=== PATIENT | female | born 1935 | race Caucasian/White ===

== ENCOUNTER → 2017-10-09 | Day surgery (SDC) | payer MEDICARE, BC ==
[~2017-10-09] MED LIST: Dextrose 5%-Lactated Ringers 1,000 ML IV SCH; Glycopyrrolate 0.2 MG/ML 2 ML SDV IVPUSH ONE; Propofol 200 MG/20 ML SDV ONE; fentaNYL 100 MCG/2 ML SDV ONE
--- NOTE | 2017-10-17 12:55 | OR ---
DATE OF PROCEDURE: 10/09/2017 PREOPERATIVE DIAGNOSES: 1. History of Mcbride esophagus. 2. Laryngopharyngeal dysphagia. POSTOPERATIVE DIAGNOSES: 1. Laryngopharyngeal dysphagia with no anatomic abnormalities in the larynx, hypopharynx, or upper esophageal sphincter. 2. 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 3. Mild antral gastritis. OPERATIVE PROCEDURES: Esophagogastroduodenoscopy with; 1. Biopsies of esophagogastric junction for histologic evaluation. 2. Biopsies of antrum for CLOtest. ANESTHESIA: IV sedation. INDICATION FOR PROCEDURE: The patient presents for followup of her Mcbride esophagus. She has had some laryngopharyngeal dysphagia and some breakthrough reflux symptoms. She is status post previous Joana fundoplication. She presently has been on omeprazole 20 mg b.i.d. The plan is to proceed with an upper GI endoscopy with biopsies of the distal esophagus for followup of Mcbride esophagus and other biopsies or dilation as indicated. Potential risks including bleeding and perforation were discussed, and the patient wishes to proceed. DETAILS OF PROCEDURE: The patient was taken to the operating room and placed in a left lateral decubitus position. IV sedation was administered, after which the upper GI endoscope was passed orally through the length of the esophagus and into the stomach with retroflexion view of the fundus, thereafter through the pyloric channel, and then into the proximal duodenum. Findings included normal hypopharynx, larynx, and upper esophageal sphincter. There was no obvious inflammation in these areas and no anatomic abnormalities. The esophageal body was unremarkable. The patient did have an intact Joana effect at the distal esophagus. There was some upward extension of the gastroesophageal junction and mucosal line above the upper gastric folds consistent with history of Mcbride esophagus. There was no packing or signs of neoplastic change and no stricturing identified. Within the stomach, the patient had some mild antral gastritis without erosions or ulcers. The pyloric channel and duodenum, junction of the third and fourth portions, were unremarkable. At this point, biopsies were obtained from the antrum and sent for CLOtest for H. pylori. Multiple biopsies were then obtained from the esophagogastric junction and sent for histologic evaluation. Minimal bleeding from the biopsy site was seen, and the procedure then concluded. With the patient having some breakthrough reflux symptoms, we will try switching to Protonix 40 mg daily and have her stop the omeprazole. If the laryngopharyngeal dysphagia becomes worse, then x-ray swallow study and speech pathology evaluation might be warranted, unless assuming there is no trend toward dysphagia on today's esophageal biopsies, the next endoscopy should be around 2 years. Robert Pate MD /[id number]
== END ==
LOC: JP.SDS 05:39
PROVIDERS: ATTEND Surgery
DX: K29.50 Unspecified chronic gastritis without bleeding (principal); K22.70 Barrett's esophagus without dysplasia; N18.9 Chronic kidney disease, unspecified; G45.9 Transient cerebral ischemic attack, unspecified; K21.9 Gastro-esophageal reflux disease without esophagitis; E03.9 Hypothyroidism, unspecified; Z88.1 Allergy status to other antibiotic agents
CPT/HCPCS: 43239; 87081; 88305; J2704; J3010; J7042; J3490

== ENCOUNTER 2017-12-19 17:09 | Inpatient (IN) | payer MEDICARE, BC ==
[2017-12-19] MEDS ORDERED: oxyCODONE 5 MG Tab PO PRN (17:47)
[2017-12-19] MEDS ORDERED: Albuterol 0.083% 2.5 MG/3 ML Neb Soln NEB PRN (17:47)
[2017-12-19] MEDS ORDERED: Polyethylene Glycol 3350 Powder 17 GM Packet PO PRN (17:47)
[2017-12-19] MEDS ORDERED: Sodium Chloride 0.9% 10 ML Syringe FLUSH PRN (17:47)
[2017-12-19] MEDS ORDERED: methylPREDNISolone Sodium Succinate 125 MG/2 ML SDV IVPUSH ONE (17:52)
[2017-12-19] MEDS ORDERED: guaiFENesin/Dextromethorphan 100-10 MG/5 ML Soln 10 ML Cup PO PRN (17:53)
[2017-12-19] MEDS ORDERED: Benzonatate 100 MG Cap PO PRN (17:53)
[2017-12-19] MEDS ORDERED: Azithromycin 250 MG Tab PO ONE (18:00)
[2017-12-19] MEDS ORDERED: Oseltamivir 30 MG Cap PO ONE (18:00)
--- NOTE | 2017-12-19 18:02 | PCM.HP ---
H&P History of Present Illness - General Date of Service: 12/19/17 Admit Problem/Dx: Admission Diagnosis/Problem Admission Diagnosis/Problem Acute bronchitis Source of Information: Patient, Provider History Limitations: Reports: No Limitations - History of Present Illness Initial Comments - Free Text/Narative: Fantasma presents as a direct admission from the internal medicine clinic. She presented there with complaints of cough, shortness of breath and fatigue. She first noticed shortness of breath and cough approximately 3 days ago. They were mild at onset but have progressed over the last few days. She is now short of breath with any activity. Cough is occasionally productive for clear or yellow sputum. She has aches and pains in her chest and abdomen from coughing so much. She reports that she hurts all over with diffuse myalgias. No complaints of sore throat but she does have nasal congestion. She has had episodes of chills but no fevers that she is aware of. She has not measured her temperature at home. She has had some intermittent nausea, mostly in the morning but no vomiting. She is not aware of any sick contacts but is out about a fair amount. She did get her flu shot this year. Workup in the clinic included a clear chest x-ray, normal white blood cell count and negative influenza antigen. She was noted to be mildly tachycardic and had oxygen saturations below 90% at the time of presentation. - Related Data Allergies/Adverse Reactions: Allergies Allergy/AdvReac Type Severity Reaction Status Date / Time amoxicillin [Amoxicillin] Allergy Cannot Verified 10/05/17 13:52 Remember levofloxacin [From Levaquin] Allergy Other Verified 10/05/17 13:52 Home Medications: Home Meds Albuterol [Ventolin HFA] 2 puff INH Q4H PRN 03/13/14 [History] Allopurinol [Zyloprim] 150 mg PO DAILY 03/13/14 [History] Aspirin [Adult Low Dose Aspirin EC] 81 mg PO DAILY 03/13/14 [History] Budesonide [Pulmicort] 2 ml NEB BID 03/13/14 [History] Furosemide [Lasix] 40 mg PO DAILY PRN 03/13/14 [History] Ipratropium/Albuterol Sulfate [Duoneb 0.5 mg-3 mg/3 ml Soln] 3 ml NEB Q4HR PRN 05/23/14 [History] Isosorbide Mononitrate [Imdur] 30 mg PO DAILY 03/13/14 [History] Levothyroxine 75 mcg PO DAILY 03/13/14 [History] Potassium Chloride 10 meq PO DAILY 03/13/14 [History] Pravastatin [Pravachol] 40 mg PO BEDTIME 03/13/14 [History] Theophylline [Theophylline Anhydrous] 400 mg PO DAILY 03/13/14 [History] predniSONE [Prednisone] 2.5 mg PO DAILY 03/13/14 [History] Nitroglycerin [Nitrostat] 0.4 mg SL Q5M PRN 04/10/16 [History] Carvedilol 3.125 mg PO BIDAC 12/19/17 [History] Pantoprazole [ProTONIX] 40 mg PO DAILY 12/19/17 [History] Warfarin [Coumadin] 1.25 mg PO ASDIRECTED 12/19/17 [History] Warfarin [Coumadin] 2.5 mg PO DAILY 12/19/17 [History] Past Medical History Other Musculoskeletal History: bilateral shoulder pain Social & Family History - Family History Respiratory: Reports: COPD (sister) - Tobacco Use Smoking Status *Q: Former Smoker Used Tobacco, but Quit: Yes Month Tobacco Last Used: 1954 Second Hand Smoke Exposure: No - Caffeine Use Caffeine Use: Reports: Coffee - Alcohol Use Days Per Week of Alcohol Use: 0 - Recreational Drug Use Recreational Drug Use: No H&P Review of Systems - Review of Systems: Review Of Systems: See Below Free Text/Narrative: A complete 12 point review of systems was obtained. Pertinent positives and negatives are noted in the history of present illness. All other systems were reviewed and were negative except as noted. Exam - Exam Exam: See Below - Vital Signs Vital Signs: Last Vital Signs Temp 36.2 C 12/19/17 17:23 Pulse Resp 24 H 12/19/17 17:23 BP 139/75 12/19/17 17:23 Pulse Ox 94 L 12/19/17 17:23 Weight: 51.256 kg - Exam Quality Assessment: No: Supplemental Oxygen General: Alert, Oriented, Cooperative, Mild Distress HEENT: PERRLA, Conjunctiva Clear, Mucosa Moist & [place]. No: Scleral Icterus Neck: Supple, Trachea Midline. No: Lymphadenopathy Lungs: Crackles (left lung base), Wheezing (mild diffuse expiratory wheezing), Other (increased work of breathing). No: Normal Respiratory Effort (increased work of breathing) Cardiovascular: Regular Rhythm, Tachycardia. No: Systolic Murmur GI/Abdominal Exam: Normal Bowel Sounds, Soft, Non-Tender, No Distention Back Exam: Normal Inspection, Full Range of Motion Extremities: No Pedal Edema. No: Increased Warmth Peripheral Pulses: 2+: Dorsalis Pedis (L), Dorsalis Pedis (R) Skin: Warm, Dry, Intact Neuro Extensive - Mental Status: Alert, Oriented x3, Nl Response to Commands Neuro Extensive - Motor, Sensory, Reflexes: CN II-XII Intact. No: Dysarthria, Abnormal Motor, Tremor Psychiatric: Alert, Normal Affect - Patient Data Lab Results Last 24 hrs: white blood cell count is 6000 Influenza swabs were negative INR was 2.66 days ago GFR was 42 within the past month Imaging Impressions Last 24 hrs: chest x-ray - images personally reviewed - lungs are clear with no infiltrate, mass or effusion. Heart size is mildly enlarged. No evidence for congestive heart failure or pulmonary hypertension. *Q Meaningful Use (ADM) - VTE *Q VTE Criteria *Q: - VTE Risk Assess *Q Each Risk Factor Represents 1 Point: Serious lung disease including pneumonia, Abnormal Pulmonary Function (COPD) Total Score 1 Point Risk Factors: 2 Each Risk Factor Represents 2 Points: None Total Score 2 Point Risk Factors: 0 Each Risk Factor Represents 3 Points: Age 75 Years or Greater Total Score 3 Point Risk Factors: 3 Each Risk Factor Represents 5 Points: None Total Score 5 Point Risk Factors: 0 Venous Thromboembolism Risk Factor Score *Q: 5 - Stroke *Q Stroke Criteria *Q: - AMI *Q AMI Criteria *Q: - Problem List (1) Acute bronchitis SNOMED Code(s): 22827655 ICD Code: J20.9 - ACUTE BRONCHITIS, UNSPECIFIED Status: Acute Current Visit: Yes (2) Acute exacerbation of chronic obstructive pulmonary disease (COPD) SNOMED Code(s): 319712378 ICD Code: J44.1 - CHRONIC OBSTRUCTIVE PULMONARY DISEASE W (ACUTE) EXACERBATION Status: Acute Current Visit: Yes (3) Chronic kidney disease, stage III (moderate) SNOMED Code(s): 989892796 ICD Code: N18.3 - CHRONIC KIDNEY DISEASE, STAGE 3 (MODERATE) Status: Chronic Current Visit: Yes (4) Paroxysmal atrial fibrillation SNOMED Code(s): 950089085 ICD Code: I48.0 - PAROXYSMAL ATRIAL FIBRILLATION Status: Chronic Current Visit: Yes Problem List Initiated/Reviewed/Updated: Yes Orders Last 24hrs: Active Orders 24 hr Category Date Time Status Patient Status [ADT] Routine ADT 12/19/17 17:47 Ordered Intake and Output [RC] QSHIFT Care 12/19/17 17:48 Ordered Notify Provider Vital Signs [RC] ASDIRECTED Care 12/19/17 17:48 Ordered Oxygen Therapy [RC] PRN Care 12/19/17 17:47 Ordered RT Aerosol Therapy [RC] ASDIRECTED Care 12/19/17 17:50 Ordered Up With Assistance [RC] ASDIRECTED Care 12/19/17 17:47 Ordered VTE/DVT Education [RC] Per Unit Routine Care 12/19/17 17:47 Ordered Vital Signs [RC] Q4H Care 12/19/17 17:47 Ordered Regular Diet [DIET] Diet 12/19/17 Dinner Ordered BASIC METABOLIC PANEL,BMP [CHEM] AM Lab 12/20/17 05:11 Ordered BASIC METABOLIC PANEL,BMP [CHEM] Routine Lab 12/19/17 17:47 Ordered CBC W/O DIFF,HEMOGRAM [HEME] AM Lab 12/20/17 05:11 Ordered CULTURE RESPIRATORY + SMEAR [RM] Routine Lab 12/19/17 17:47 Ordered INR,PT,PROTHROMBIN TIME [COAG] AM Lab 12/20/17 05:11 Ordered Acetaminophen [Tylenol Extra Strength] Med 12/19/17 17:54 Ordered 1,000 mg PO Q6H PRN Albuterol [Proventil Neb Soln] Med 12/19/17 17:47 Ordered 2.5 mg NEB Q4H PRN Albuterol/Ipratropium [DuoNeb 3.0-0.5 MG/3 ML] Med 12/19/17 22:00 Ordered 3 ml NEB QID Allopurinol [Zyloprim] Med 12/20/17 09:00 Ordered 150 mg PO DAILY Aspirin [Halfprin] Med 12/20/17 09:00 Ordered 81 mg PO DAILY Azithromycin [Zithromax] Med 12/20/17 09:00 Ordered 250 mg PO DAILY Azithromycin [Zithromax] Med 12/19/17 18:00 Once 500 mg PO ONETIME ONE Benzonatate [Tessalon Perles] Med 12/19/17 17:53 Ordered 100 mg PO TID PRN Budesonide [Pulmicort] Med 12/19/17 21:00 Ordered 0.5 mg NEB BID Carvedilol [Coreg] Med 12/19/17 18:00 Ordered 3.125 mg PO BIDAC Dextromethorphan/guaiFENesin [Robitussin DM] Med 12/19/17 17:53 Ordered 10 ml PO Q4H PRN Docusate Sodium/Sennosides [Senna Plus] Med 12/19/17 17:47 Ordered 1 tab PO BID PRN Isosorbide Mononitrate [Imdur] Med 12/20/17 09:00 Ordered 30 mg PO DAILY Levothyroxine Med 12/20/17 09:00 Ordered 75 mcg PO DAILY Ondansetron [Zofran ODT] Med 12/19/17 17:47 Ordered 4 mg PO Q6H PRN Oseltamivir [Tamiflu] Med 12/20/17 09:00 Ordered 30 mg PO BID Oseltamivir [Tamiflu] Med 12/19/17 18:00 Once 30 mg PO ONETIME ONE Pantoprazole [ProTONIX] Med 12/20/17 09:00 Ordered 40 mg PO DAILY Polyethylene Glycol 3350 [MiraLAX] Med 12/19/17 17:47 Ordered 17 gm PO DAILY PRN Potassium Chloride Med 12/20/17 09:00 Ordered 10 meq PO DAILY Pravastatin [Pravachol] Med 12/19/17 21:00 Ordered 40 mg PO BEDTIME Sodium Chloride 0.9% [Saline Flush] Med 12/19/17 17:47 Ordered 10 ml FLUSH ASDIRECTED PRN Theophylline [Theophylline Anhydrous] Med 12/20/17 09:00 Ordered 400 mg PO DAILY cefTRIAXone [Rocephin] 1 gm Med 12/19/17 18:00 Ordered Sodium Chloride 0.9% [Normal Saline] 50 ml IV Q24H methylPREDNISolone Sod Succ [Solu-MEDROL] Med 12/19/17 17:52 Once 125 mg IVPUSH ONETIME ONE methylPREDNISolone Sod Succ [Solu-MEDROL] Med 12/20/17 02:00 Ordered 62.5 mg IVPUSH Q8H oxyCODONE Med 12/19/17 17:47 Ordered 5 mg PO Q4H PRN predniSONE Med 03/01/18 07:30 Ordered 20 mg PO BIDAC Saline Lock Insert [OM.PC] Routine Oth 12/19/17 17:47 Ordered Sequential Compression Device [OM.PC] Per Unit Routine Oth 12/19/17 17:49 Ordered Resuscitation Status Routine Resus Stat 12/19/17 17:47 Ordered Assessment/Plan Comment:: ASSESSMENT AND PLAN - Acute bronchitis with acute exacerbation of COPD - former smoker. Chest x-ray is clear at this time. She has an influenza-like illness and both viral and bacterial pathogens are considerations. She was mildly hypoxic in the clinic. She has an increased work of breathing and little reserve and would benefit from inpatient rather than outpatient management. -Tamiflu -Ceftriaxone and azithromycin -Scheduled and as needed nebulizers -Cough suppressant -Supplement oxygen if needed -Continue Pulmicort -Sputum culture if able Paroxysmal atrial fibrillation - currently in sinus rhythm. She is chronically anticoagulated. INR was 2.6 on 12/13. -Check INR in the morning and adjust warfarin dosing as indicated -Usual dose is 1.25 mg on Sunday and Sunday and 2.5 mg the rest of the week Stage III chronic kidney disease - most recent GFR was 42.planning to check labs this evening and again in the morning. Maintenance issues - - DVT prophylaxis - mechanical - GI prophylaxis - PPI - Nutrition - regular diet - Vega catheter - not indicated CODE STATUS - no CPR but she is okay with short-term intubation Admission justification - This patient will be admitted for inpatient services and is medically appropriate meeting medical necessity for inpatient admission as outlined in my documentation. I reasonably expect the patient will require inpatient services that span a period time over 2 midnights. I reasonably expect this patient to be discharged or transferred within 96 hours [facility] Disposition - anticipate discharge home after the hospital stay Primary care physician - Dr. Sammy Zambrano M.D.
[2017-12-19] MEDS: cefTRIAXone 1 GM in Sodium Chloride 0.9% 50 ML IV SCH (19:23)
[2017-12-19] MEDS: Ondansetron 4 MG Tab.DIS PO PRN (19:43)
[2017-12-19] MEDS: LORazepam 2 MG/ML MDV IVPUSH PRN (20:44)
[2017-12-19] MEDS: Pravastatin 20 MG Tab PO SCH (21:01)
[2017-12-19] MEDS: Albuterol/Ipratropium 3.0-0.5 MG/3 ML Neb Soln NEB SCH (21:01)
[2017-12-19] MEDS: Budesonide 0.5 MG/2 ML Neb Susp NEB SCH (21:01)
[2017-12-19] MEDS: Carvedilol 3.125 MG Tab PO SCH (21:02)
--- NOTE | 2017-12-19 21:16 | PCM.SN ---
- Free Text/Narrative Note: time : 20:25 call from 2 [facility]; Mrs. Jenkins has vomited 2 times this evening, complains of severe nausea, has tried Zofran ODT without relief. A: Nausea and vomiting P: give Ativan 0.5 mg to 1 mg IV every 6 hours as needed for nausea and vomiting. Continue present plan of care.
[2017-12-20] MEDS: Acetaminophen 500 MG Tab PO PRN (01:00)
[2017-12-20] MEDS ORDERED: methylPREDNISolone Sodium Succinate 125 MG/2 ML SDV IVPUSH SCH (02:00)
--- NOTE | 2017-12-20 06:12 | PCM.SN ---
- Free Text/Narrative Note: time: 05:25 call [address] [place] [address]; abnormal lab O: INR 4.5 A: A-fib, coumadin therapy P: hold coumadin today. recheck INR in am
[2017-12-20] MEDS: Albuterol/Ipratropium 3.0-0.5 MG/3 ML Neb Soln NEB SCH ×4 (07:28→21:18)
[2017-12-20] MEDS: Budesonide 0.5 MG/2 ML Neb Susp NEB SCH ×2 (07:28→21:18)
[2017-12-20] MEDS: Carvedilol 3.125 MG Tab PO SCH ×2 (08:46→17:16)
[2017-12-20] MEDS: Aspirin 81 MG Tab.EC PO SCH (08:46)
[2017-12-20] MEDS: Potassium Chloride 10 MEQ Cap.ER PO SCH (08:46)
[2017-12-20] MEDS: Levothyroxine 75 MCG Tab PO SCH (08:47)
[2017-12-20] MEDS: Pantoprazole 40 MG Tab.CR PO SCH (08:47)
[2017-12-20] MEDS: Allopurinol 300 MG Tab PO SCH (08:47)
[2017-12-20] MEDS: Azithromycin 250 MG Tab PO SCH (08:47)
[2017-12-20] MEDS: predniSONE 20 MG Tab PO SCH ×2 (08:47→17:16)
[2017-12-20] MEDS: Theophylline 100 MG Cap.ER PO SCH (08:48)
[2017-12-20] MEDS: Oseltamivir 30 MG Cap PO SCH ×2 (08:48→21:22)
[2017-12-20] MEDS: Isosorbide Mononitrate 30 MG Tab.ER PO SCH (08:48)
[2017-12-20] MEDS: Theophylline 300 MG Tab.ER PO SCH (08:48)
[2017-12-20] MEDS ORDERED: Theophylline 100 MG Cap.ER PO SCH (09:00)
[2017-12-20] MEDS ORDERED: Potassium Chloride 20 MEQ Tab.ER PO ONE (09:30)
--- NOTE | 2017-12-20 10:23 | PCM.PN ---
- General Info Date of Service: 12/20/17 Functional Status: Reports: Pain Controlled, Tolerating Diet - Review of Systems General: Reports: Fever, Weakness Pulmonary: Reports: Shortness of Breath, Cough Systems Review Comment:: No acute events overnight. She did require supplemental O2 at 2L overnight. She was febrile overnight. She feels a little better today but still has diffuse aches and pains and discomfort in her chest and abdomen with coughing. Cough is mostly dry but occasionally productive for mild sputum. Still feels short of breath. Still not much of an appetite. Tolerating treatment so far. - Patient Data Vitals - Most Recent: Last Vital Signs Temp 37.1 C 12/20/17 07:14 Pulse 96 12/20/17 08:46 Resp 18 12/20/17 07:14 BP 131/64 12/20/17 08:48 Pulse Ox 88 L 12/20/17 07:28 Weight - Most Recent: 51.256 kg I&O - Last 24 Hours: Intake & Output 12/19/17 12/20/17 12/20/17 22:59 06:59 14:59 Intake Total 400 Output Total 3 Balance -3 400 Lab Results Last 24 Hours: Laboratory Results - last 24 hr 12/19/17 12/20/17 12/20/17 Range/Units 17:47 05:00 05:00 WBC 10.5 (4.5-11.0) K/uL RBC 4.13 (3.30-5.50) M/uL Hgb 13.2 (12.0-15.0) g/dL Hct 40.7 (36.0-48.0) % MCV 99 H (80-98) fL MCH 32 H (27-31) pg MCHC 32 (32-36) % Plt Count 129 L (150-400) K/uL PT 51.4 H (9.5-12.0) sec INR 4.51 H* (0.80-1.20) Sodium 142 (140-148) mmol/L Potassium 3.3 L (3.6-5.2) mmol/L Chloride 104 (100-108) mmol/L Carbon Dioxide 25 (21-32) mmol/L Anion Gap 16.3 H (5.0-14.0) mmol/L BUN 14 (7-18) mg/dL Creatinine 1.1 H (0.6-1.0) mg/dL Est Cr Clr Drug Dosing 31.90 mL/min Estimated GFR (MDRD) 48 L (>60) Glucose 94 (74-106) mg/dL Calcium 9.2 (8.5-10.1) mg/dL 12/20/17 Range/Units 05:00 WBC (4.5-11.0) K/uL RBC (3.30-5.50) M/uL Hgb (12.0-15.0) g/dL Hct (36.0-48.0) % MCV (80-98) fL MCH (27-31) pg MCHC (32-36) % Plt Count (150-400) K/uL PT (9.5-12.0) sec INR (0.80-1.20) Sodium 141 (140-148) mmol/L Potassium 3.2 L (3.6-5.2) mmol/L Chloride 103 (100-108) mmol/L Carbon Dioxide 25 (21-32) mmol/L Anion Gap 16.2 H (5.0-14.0) mmol/L BUN 22 H D (7-18) mg/dL Creatinine 1.3 H (0.6-1.0) mg/dL Est Cr Clr Drug Dosing 27.00 mL/min Estimated GFR (MDRD) 39 L (>60) Glucose 209 H (74-106) mg/dL Calcium 9.0 (8.5-10.1) mg/dL Med Orders - Current: Current Medications Acetaminophen (Tylenol Extra Strength) 1,000 mg PO Q6H PRN PRN Reason: Pain/Fever Last Admin: 12/20/17 01:00 Dose: 1,000 mg Albuterol (Proventil Neb Soln) 2.5 mg NEB Q4H PRN PRN Reason: Shortness Of Breath/wheezing Albuterol/Ipratropium (Duoneb 3.0-0.5 Mg/3 Ml) 3 ml NEB QIDRT [facility] Last Admin: 12/20/17 07:28 Dose: 3 ml Allopurinol (Zyloprim) 150 mg PO DAILY [facility] Last Admin: 12/20/17 08:47 Dose: 150 mg Aspirin (Halfprin) 81 mg PO DAILY [facility] Last Admin: 12/20/17 08:46 Dose: 81 mg Azithromycin (Zithromax) 250 mg PO DAILY [facility] Last Admin: 12/20/17 08:47 Dose: 250 mg Benzonatate (Tessalon Perles) 100 mg PO TID PRN PRN Reason: Cough Budesonide (Pulmicort) 0.5 mg NEB BIDRT [facility] Last Admin: 12/20/17 07:28 Dose: 0.5 mg Carvedilol (Coreg) 3.125 mg PO BIDAC [facility] Last Admin: 12/20/17 08:46 Dose: 3.125 mg Guaifenesin/Dextromethorphan (Robitussin Dm) 10 ml PO Q4H PRN PRN Reason: Cough Last Admin: 12/20/17 00:58 Dose: 10 ml Ceftriaxone Sodium 1 gm/ (Sodium Chloride) 50 mls @ 100 mls/hr IV Q24H [facility] Last Admin: 12/19/17 19:23 Dose: 100 mls/hr Isosorbide Mononitrate (Imdur) 30 mg PO DAILY [facility] Last Admin: 12/20/17 08:48 Dose: 30 mg Levothyroxine Sodium (Levothyroxine) 75 mcg PO DAILY@0730 [facility] Last Admin: 12/20/17 08:47 Dose: 75 mcg Lorazepam (Ativan) 0.5 - 1 mg IVPUSH Q6H PRN PRN Reason: Nausea/Vomiting Last Admin: 12/19/17 20:44 Dose: 0.5 mg Ondansetron HCl (Zofran Odt) 4 mg PO Q6H PRN PRN Reason: Nausea able to take PO Last Admin: 12/19/17 19:43 Dose: 4 mg Oseltamivir Phosphate (Tamiflu) 30 mg PO BID [facility] Last Admin: 12/20/17 08:48 Dose: 30 mg Oxycodone HCl (Oxycodone) 5 mg PO Q4H PRN PRN Reason: Pain (moderate 4-6) Pantoprazole Sodium (Protonix) 40 mg PO ACBREAKFAST [facility] Last Admin: 12/20/17 08:47 Dose: 40 mg Polyethylene Glycol (Miralax) 17 gm PO DAILY PRN PRN Reason: Constipation Potassium Chloride (Potassium Chloride) 10 meq PO DAILY [facility] Last Admin: 12/20/17 08:46 Dose: 10 meq Pravastatin Sodium (Pravachol) 40 mg PO BEDTIME [facility] Last Admin: 12/19/17 21:01 Dose: 40 mg Prednisone (Prednisone) 20 mg PO BIDAC [facility] Last Admin: 12/20/17 08:47 Dose: 20 mg Senna/Docusate Sodium (Senna Plus) 1 tab PO BID PRN PRN Reason: Constipation Sodium Chloride (Saline Flush) 10 ml FLUSH ASDIRECTED PRN PRN Reason: Keep Vein Open Theophylline (Pablito-24) 100 mg PO DAILY [facility] Last Admin: 12/20/17 08:48 Dose: 100 mg Theophylline (Theophylline Anhydrous) 300 mg PO DAILY [facility] Last Admin: 12/20/17 08:48 Dose: 300 mg Discontinued Medications Azithromycin (Zithromax) 500 mg PO ONETIME ONE Stop: 12/19/17 18:01 Last Admin: 12/19/17 21:01 Dose: 500 mg Methylprednisolone Sodium Succinate (Solu-Medrol) 125 mg IVPUSH ONETIME ONE Stop: 12/19/17 17:53 Last Admin: 12/19/17 18:54 Dose: 125 mg Methylprednisolone Sodium Succinate (Solu-Medrol) 62.5 mg IVPUSH Q8H [facility] Stop: 12/20/17 02:01 Last Admin: 12/20/17 01:04 Dose: 62.5 mg Oseltamivir Phosphate (Tamiflu) 30 mg PO ONETIME ONE Stop: 12/19/17 18:01 Last Admin: 12/19/17 21:01 Dose: 30 mg Potassium Chloride (Klor-Con M20) 40 meq PO ONETIME ONE Stop: 12/20/17 09:31 - Exam Quality Assessment: No: Supplemental Oxygen General: Alert, Oriented, Cooperative, Mild Distress (increased work of breathing ) Lungs: Rhonchi (both lower lungs), Wheezing (mild end exp wheezing ). No: Normal Respiratory Effort (increased work of breathing ) Cardiovascular: Regular Rate, Regular Rhythm GI/Abdominal Exam: Soft, No Distention Extremities: No Pedal Edema Psy/Mental Status: Alert, Normal Affect - Problem List & Annotations (1) Acute bronchitis SNOMED Code(s): 45262468 Code(s): J20.9 - ACUTE BRONCHITIS, UNSPECIFIED Status: Acute Current Visit: Yes (2) Acute exacerbation of chronic obstructive pulmonary disease (COPD) SNOMED Code(s): 544011730 Code(s): J44.1 - CHRONIC OBSTRUCTIVE PULMONARY DISEASE W (ACUTE) EXACERBATION Status: Acute Current Visit: Yes (3) Chronic kidney disease, stage III (moderate) SNOMED Code(s): 161775956 Code(s): N18.3 - CHRONIC KIDNEY DISEASE, STAGE 3 (MODERATE) Status: Chronic Current Visit: Yes (4) Paroxysmal atrial fibrillation SNOMED Code(s): 996149876 Code(s): I48.0 - PAROXYSMAL ATRIAL FIBRILLATION Status: Chronic Current Visit: Yes - Problem List Review Problem List Initiated/Reviewed/Updated: Yes - My Orders Last 24 Hours: My Active Orders 12/19/17 17:47 Patient Status [ADT] Routine Oxygen Therapy [RC] PRN Up With Assistance [RC] ASDIRECTED VTE/DVT Education [RC] Per Unit Routine Vital Signs [RC] Q4H CULTURE RESPIRATORY + SMEAR [RM] Routine Albuterol [Proventil Neb Soln] 2.5 mg NEB Q4H PRN Docusate Sodium/Sennosides [Senna Plus] 1 tab PO BID PRN Ondansetron [Zofran ODT] 4 mg PO Q6H PRN Polyethylene Glycol 3350 [MiraLAX] 17 gm PO DAILY PRN Sodium Chloride 0.9% [Saline Flush] 10 ml FLUSH ASDIRECTED PRN oxyCODONE 5 mg PO Q4H PRN Saline Lock Insert [OM.PC] Routine Resuscitation Status Routine 12/19/17 17:48 Intake and Output [RC] QSHIFT Notify Provider Vital Signs [RC] ASDIRECTED 12/19/17 17:49 Sequential Compression Device [OM.PC] Per Unit Routine 12/19/17 17:50 RT Aerosol Therapy [RC] ASDIRECTED 12/19/17 17:53 Benzonatate [Tessalon Perles] 100 mg PO TID PRN Dextromethorphan/guaiFENesin [Robitussin DM] 10 ml PO Q4H PRN 12/19/17 17:54 Acetaminophen [Tylenol Extra Strength] 1,000 mg PO Q6H PRN 12/19/17 18:00 Carvedilol [Coreg] 3.125 mg PO BIDAC cefTRIAXone [Rocephin] 1 gm Sodium Chloride 0.9% [Normal Saline] 50 ml IV Q24H 12/19/17 21:00 Albuterol/Ipratropium [DuoNeb 3.0-0.5 MG/3 ML] 3 ml NEB QIDRT Budesonide [Pulmicort] 0.5 mg NEB BIDRT Pravastatin [Pravachol] 40 mg PO BEDTIME 12/19/17 Dinner Regular Diet [DIET] 12/20/17 07:30 Levothyroxine 75 mcg PO DAILY@0730 Pantoprazole [ProTONIX] 40 mg PO ACBREAKFAST predniSONE 20 mg PO BIDAC 12/20/17 09:00 Allopurinol [Zyloprim] 150 mg PO DAILY Aspirin [Halfprin] 81 mg PO DAILY Azithromycin [Zithromax] 250 mg PO DAILY Isosorbide Mononitrate [Imdur] 30 mg PO DAILY Oseltamivir [Tamiflu] 30 mg PO BID Potassium Chloride 10 meq PO DAILY Theophylline [Pablito-24] 100 mg PO DAILY Theophylline [Theophylline Anhydrous] 300 mg PO DAILY 12/21/17 05:00 BASIC METABOLIC PANEL,BMP [CHEM] Timed CBC W/O DIFF,HEMOGRAM [HEME] Timed (1) INR,PT,PROTHROMBIN TIME [COAG] Timed - Plan Plan:: ASSESSMENT AND PLAN - Acute bronchitis with acute exacerbation of COPD - former smoker. Suspect influenza but cannot rule out bacterial infection at this time. -Tamiflu -Ceftriaxone and azithromycin -Scheduled and as needed nebulizers -Cough suppressant -Supplement oxygen if needed -Continue Pulmicort -Sputum culture if able Hypokalemia - mild and plan to replace this morning and recheck tomorrow. Paroxysmal atrial fibrillation - currently in sinus rhythm. She is chronically anticoagulated, INR currently supratherapeutic. -Hold warfarin today, recheck INR in the morning -Usual dose is 1.25 mg on Sunday and Sunday and 2.5 mg the rest of the week Stage III chronic kidney disease - renal function stable compared outpatient. Maintenance issues - - DVT prophylaxis - mechanical - GI prophylaxis - PPI - Nutrition - regular diet Disposition - anticipate discharge home after the hospital stay Holger Zambrano M.D.
[2017-12-20] MEDS: Ondansetron 4 MG Tab.DIS PO PRN (11:08)
[2017-12-20] MEDS: cefTRIAXone 1 GM in Sodium Chloride 0.9% 50 ML IV SCH (17:16)
[2017-12-20] MEDS: Pravastatin 20 MG Tab PO SCH (21:22)
[2017-12-21] MEDS: Acetaminophen 500 MG Tab PO PRN ×2 (00:29→21:03)
[2017-12-21] MEDS: Pantoprazole 40 MG Tab.CR PO SCH (07:09)
[2017-12-21] MEDS: Levothyroxine 75 MCG Tab PO SCH (07:11)
[2017-12-21] MEDS: Albuterol/Ipratropium 3.0-0.5 MG/3 ML Neb Soln NEB SCH ×4 (07:14→21:04)
[2017-12-21] MEDS: Budesonide 0.5 MG/2 ML Neb Susp NEB SCH ×2 (07:15→21:04)
[2017-12-21] MEDS: Carvedilol 3.125 MG Tab PO SCH ×2 (08:34→16:16)
[2017-12-21] MEDS: Aspirin 81 MG Tab.EC PO SCH (08:35)
[2017-12-21] MEDS: predniSONE 20 MG Tab PO SCH ×2 (08:35→16:16)
[2017-12-21] MEDS: Isosorbide Mononitrate 30 MG Tab.ER PO SCH (08:35)
[2017-12-21] MEDS: Theophylline 300 MG Tab.ER PO SCH (08:36)
[2017-12-21] MEDS: Potassium Chloride 10 MEQ Cap.ER PO SCH (08:36)
[2017-12-21] MEDS: Oseltamivir 30 MG Cap PO SCH ×2 (08:36→21:03)
[2017-12-21] MEDS: Theophylline 100 MG Cap.ER PO SCH (08:36)
[2017-12-21] MEDS: Allopurinol 300 MG Tab PO SCH (08:37)
[2017-12-21] MEDS: Azithromycin 250 MG Tab PO SCH (08:37)
--- NOTE | 2017-12-21 10:28 | PCM.PN ---
- General Info Date of Service: 12/21/17 Functional Status: Reports: Pain Controlled, Tolerating Diet - Review of Systems General: Denies: Fever Pulmonary: Reports: Shortness of Breath, Pleuritic Chest Pain, Cough Systems Review Comment:: No acute events overnight. Respiratory status has remained stable to slightly improved. She has not required supplemental oxygen but is short of breath with any activity. Still has a harsh cough. Air movement is a little better today and she tolerated the transition to prednisone. Cultures are negative so far. White blood cell count is up a little bit. She did not have any fevers overnight. - Patient Data Vitals - Most Recent: Last Vital Signs Temp 36.3 C 12/21/17 06:51 Pulse 105 H 12/21/17 08:34 Resp 18 12/21/17 06:51 BP 140/66 12/21/17 08:35 Pulse Ox 98 12/21/17 07:15 Weight - Most Recent: 51.256 kg I&O - Last 24 Hours: Intake & Output 12/20/17 12/21/17 12/21/17 22:59 06:59 14:59 Intake Total 360 240 480 Balance 360 240 480 Lab Results Last 24 Hours: Laboratory Results - last 24 hr 12/21/17 12/21/17 12/21/17 Range/Units 05:48 05:48 05:48 WBC 13.1 H (4.5-11.0) K/uL RBC 3.89 (3.30-5.50) M/uL Hgb 12.5 (12.0-15.0) g/dL Hct 37.8 (36.0-48.0) % MCV 97 (80-98) fL MCH 32 H (27-31) pg MCHC 33 (32-36) % Plt Count 138 L (150-400) K/uL PT 33.5 H (9.5-12.0) sec INR 2.99 H (0.80-1.20) Sodium 141 (140-148) mmol/L Potassium 3.9 (3.6-5.2) mmol/L Chloride 106 (100-108) mmol/L Carbon Dioxide 22 (21-32) mmol/L Anion Gap 12.9 (5.0-14.0) mmol/L BUN 31 H (7-18) mg/dL Creatinine 1.3 H (0.6-1.0) mg/dL Est Cr Clr Drug Dosing 27.00 mL/min Estimated GFR (MDRD) 39 L (>60) Glucose 149 H (74-106) mg/dL Calcium 9.4 (8.5-10.1) mg/dL Med Orders - Current: Current Medications Acetaminophen (Tylenol Extra Strength) 1,000 mg PO Q6H PRN PRN Reason: Pain/Fever Last Admin: 12/21/17 00:29 Dose: 1,000 mg Albuterol (Proventil Neb Soln) 2.5 mg NEB Q4H PRN PRN Reason: Shortness Of Breath/wheezing Albuterol/Ipratropium (Duoneb 3.0-0.5 Mg/3 Ml) 3 ml NEB QIDRT [facility] Last Admin: 12/21/17 07:14 Dose: 3 ml Allopurinol (Zyloprim) 150 mg PO DAILY [facility] Last Admin: 12/21/17 08:37 Dose: 150 mg Aspirin (Halfprin) 81 mg PO DAILY [facility] Last Admin: 12/21/17 08:35 Dose: 81 mg Azithromycin (Zithromax) 250 mg PO DAILY [facility] Last Admin: 12/21/17 08:37 Dose: 250 mg Benzonatate (Tessalon Perles) 100 mg PO TID PRN PRN Reason: Cough Budesonide (Pulmicort) 0.5 mg NEB BIDRT [facility] Last Admin: 12/21/17 07:15 Dose: 0.5 mg Carvedilol (Coreg) 3.125 mg PO BIDAC [facility] Last Admin: 12/21/17 08:34 Dose: 3.125 mg Guaifenesin/Dextromethorphan (Robitussin Dm) 10 ml PO Q4H PRN PRN Reason: Cough Last Admin: 12/20/17 00:58 Dose: 10 ml Isosorbide Mononitrate (Imdur) 30 mg PO DAILY [facility] Last Admin: 12/21/17 08:35 Dose: 30 mg Levothyroxine Sodium (Levothyroxine) 75 mcg PO DAILY@0730 [facility] Last Admin: 12/21/17 07:11 Dose: 75 mcg Lorazepam (Ativan) 0.5 - 1 mg IVPUSH Q6H PRN PRN Reason: Nausea/Vomiting Last Admin: 12/19/17 20:44 Dose: 0.5 mg Ondansetron HCl (Zofran Odt) 4 mg PO Q6H PRN PRN Reason: Nausea able to take PO Last Admin: 12/20/17 11:08 Dose: 4 mg Oseltamivir Phosphate (Tamiflu) 30 mg PO BID [facility] Last Admin: 12/21/17 08:36 Dose: 30 mg Oxycodone HCl (Oxycodone) 5 mg PO Q4H PRN PRN Reason: Pain (moderate 4-6) Pantoprazole Sodium (Protonix) 40 mg PO ACBREAKFAST [facility] Last Admin: 12/21/17 07:09 Dose: 40 mg Polyethylene Glycol (Miralax) 17 gm PO DAILY PRN PRN Reason: Constipation Potassium Chloride (Potassium Chloride) 10 meq PO DAILY [facility] Last Admin: 12/21/17 08:36 Dose: 10 meq Pravastatin Sodium (Pravachol) 40 mg PO BEDTIME [facility] Last Admin: 12/20/17 21:22 Dose: 40 mg Prednisone (Prednisone) 20 mg PO BIDAC [facility] Last Admin: 12/21/17 08:35 Dose: 20 mg Senna/Docusate Sodium (Senna Plus) 1 tab PO BID PRN PRN Reason: Constipation Sodium Chloride (Saline Flush) 10 ml FLUSH ASDIRECTED PRN PRN Reason: Keep Vein Open Theophylline (Pablito-24) 100 mg PO DAILY [facility] Last Admin: 12/21/17 08:36 Dose: 100 mg Theophylline (Theophylline Anhydrous) 300 mg PO DAILY [facility] Last Admin: 12/21/17 08:36 Dose: 300 mg Discontinued Medications Azithromycin (Zithromax) 500 mg PO ONETIME ONE Stop: 12/19/17 18:01 Last Admin: 12/19/17 21:01 Dose: 500 mg Ceftriaxone Sodium 1 gm/ (Sodium Chloride) 50 mls @ 100 mls/hr IV Q24H [facility] Last Admin: 12/20/17 17:16 Dose: 100 mls/hr Methylprednisolone Sodium Succinate (Solu-Medrol) 125 mg IVPUSH ONETIME ONE Stop: 12/19/17 17:53 Last Admin: 12/19/17 18:54 Dose: 125 mg Methylprednisolone Sodium Succinate (Solu-Medrol) 62.5 mg IVPUSH Q8H [facility] Stop: 12/20/17 02:01 Last Admin: 12/20/17 01:04 Dose: 62.5 mg Oseltamivir Phosphate (Tamiflu) 30 mg PO ONETIME ONE Stop: 12/19/17 18:01 Last Admin: 12/19/17 21:01 Dose: 30 mg Potassium Chloride (Klor-Con M20) 40 meq PO ONETIME ONE Stop: 12/20/17 09:31 Last Admin: 12/20/17 11:02 Dose: 40 meq - Exam Quality Assessment: No: Supplemental Oxygen General: Alert, Oriented, Cooperative, No Acute Distress Neck: Supple Lungs: Normal Respiratory Effort, Rhonchi (diffuse exp rhonchi) Cardiovascular: Regular Rate, Regular Rhythm GI/Abdominal Exam: Soft, No Distention Extremities: No Pedal Edema Psy/Mental Status: Alert, Normal Affect - Problem List & Annotations (1) Acute bronchitis SNOMED Code(s): 66031298 Code(s): J20.9 - ACUTE BRONCHITIS, UNSPECIFIED Status: Acute Current Visit: Yes Qualifiers: Bronchitis organism: unspecified organism Qualified Code(s): J20.9 - Acute bronchitis, unspecified (2) Acute exacerbation of chronic obstructive pulmonary disease (COPD) SNOMED Code(s): 318860042 Code(s): J44.1 - CHRONIC OBSTRUCTIVE PULMONARY DISEASE W (ACUTE) EXACERBATION Status: Acute Current Visit: Yes (3) Chronic kidney disease, stage III (moderate) SNOMED Code(s): 030745302 Code(s): N18.3 - CHRONIC KIDNEY DISEASE, STAGE 3 (MODERATE) Status: Chronic Current Visit: Yes (4) Paroxysmal atrial fibrillation SNOMED Code(s): 636381209 Code(s): I48.0 - PAROXYSMAL ATRIAL FIBRILLATION Status: Chronic Current Visit: Yes - Problem List Review Problem List Initiated/Reviewed/Updated: Yes - My Orders Last 24 Hours: My Active Orders 12/20/17 13:34 RT Acapella [RESPCARE] Routine 12/21/17 10:27 Calcium Carbonate [Tums] 1,000 mg PO Q2HR PRN 12/21/17 11:00 Sucralfate [Carafate] 1 gm PO TIDAC 12/22/17 05:00 BASIC METABOLIC PANEL,BMP [CHEM] Timed CBC W/O DIFF,HEMOGRAM [HEME] Timed (1) INR,PT,PROTHROMBIN TIME [COAG] Timed - Plan Plan:: ASSESSMENT AND PLAN - Acute bronchitis with acute exacerbation of COPD - former smoker. Suspect influenza despite negative testing but cannot rule out bacterial infection at this time. Seems to slowly be improving. -Tamiflu -Continue azithromycin -Scheduled and as needed nebulizers -Cough suppressant -Supplement oxygen if needed -Continue Pulmicort -Sputum culture if able Increased esophageal reflux symptoms - could be related to steroids, not currently well controlled with her proton pump inhibitor. -Trial of sucralfate Hypokalemia - potassium level back in the normal range today. Paroxysmal atrial fibrillation - currently in sinus rhythm. She is chronically anticoagulated, INR now back into the normal range but at the upper limit. -Hold warfarin today, recheck INR in the morning -Usual dose is 1.25 mg on Sunday and Sunday and 2.5 mg the rest of the week Stage III chronic kidney disease - renal function stable. Maintenance issues - - DVT prophylaxis - mechanical - GI prophylaxis - PPI - Nutrition - regular diet Disposition - anticipate discharge home after the hospital stay Holger Zambrano M.D.
[2017-12-21] MEDS: Sucralfate Suspension 1 GM/10 ML Cup PO SCH ×2 (11:24→16:16)
[2017-12-21] MEDS: Ondansetron 4 MG Tab.DIS PO PRN (13:05)
[2017-12-21] MEDS: Calcium Carbonate 500 MG Tab.Chew PO PRN (13:05)
[2017-12-21] MEDS: Pravastatin 20 MG Tab PO SCH (21:04)
[2017-12-21] MEDS: LORazepam 2 MG/ML MDV IVPUSH PRN (23:55)
[2017-12-22] MEDS: Albuterol/Ipratropium 3.0-0.5 MG/3 ML Neb Soln NEB SCH ×4 (07:20→21:24)
[2017-12-22] MEDS: Budesonide 0.5 MG/2 ML Neb Susp NEB SCH ×2 (07:20→21:29)
[2017-12-22] MEDS: Pantoprazole 40 MG Tab.CR PO SCH ×2 (07:48→16:32)
[2017-12-22] MEDS: Sucralfate Suspension 1 GM/10 ML Cup PO SCH (07:48)
[2017-12-22] MEDS: Carvedilol 3.125 MG Tab PO SCH ×2 (07:49→16:33)
[2017-12-22] MEDS: predniSONE 20 MG Tab PO SCH ×2 (07:49→16:33)
[2017-12-22] MEDS: Levothyroxine 75 MCG Tab PO SCH (07:50)
[2017-12-22] MEDS: Acetaminophen 500 MG Tab PO PRN ×2 (09:07→21:47)
[2017-12-22] MEDS: Aspirin 81 MG Tab.EC PO SCH (09:07)
[2017-12-22] MEDS: Theophylline 100 MG Cap.ER PO SCH (09:07)
[2017-12-22] MEDS: Theophylline 300 MG Tab.ER PO SCH (09:08)
[2017-12-22] MEDS: Oseltamivir 30 MG Cap PO SCH ×2 (09:08→21:39)
[2017-12-22] MEDS: Potassium Chloride 10 MEQ Cap.ER PO SCH (09:08)
[2017-12-22] MEDS: Allopurinol 300 MG Tab PO SCH (09:08)
[2017-12-22] MEDS: Azithromycin 250 MG Tab PO SCH (09:08)
[2017-12-22] MEDS: Isosorbide Mononitrate 30 MG Tab.ER PO SCH (09:09)
--- NOTE | 2017-12-22 09:43 | PCM.PN ---
- General Info Date of Service: 12/22/17 - Review of Systems General: Reports: Weakness. Denies: Fever Pulmonary: Reports: Shortness of Breath, Cough Systems Review Comment:: No acute events overnight. Still has a harsh but mostly nonproductive cough. She is short of breath with activity but has been able to do some ambulating. She has not required supplemental oxygen and has not had fevers. Appetite has been poor. Does not feel any better today and thinks she actually feels worse. - Patient Data Vitals - Most Recent: Last Vital Signs Temp 35.8 C 12/22/17 07:44 Pulse 111 H 12/22/17 07:49 Resp 20 12/22/17 07:44 BP 128/76 12/22/17 09:09 Pulse Ox 92 L 12/22/17 07:44 Weight - Most Recent: 51.256 kg I&O - Last 24 Hours: Intake & Output 12/21/17 12/22/17 12/22/17 22:59 06:59 14:59 Intake Total 580 Balance 580 Lab Results Last 24 Hours: Laboratory Results - last 24 hr 12/22/17 12/22/17 12/22/17 Range/Units 05:24 05:24 05:24 WBC 9.0 (4.5-11.0) K/uL RBC 3.76 (3.30-5.50) M/uL Hgb 12.0 (12.0-15.0) g/dL Hct 36.5 (36.0-48.0) % MCV 97 (80-98) fL MCH 32 H (27-31) pg MCHC 33 (32-36) % Plt Count 145 L (150-400) K/uL PT 23.4 H (9.5-12.0) sec INR 2.12 H (0.80-1.20) Sodium 142 (140-148) mmol/L Potassium 3.9 (3.6-5.2) mmol/L Chloride 109 H (100-108) mmol/L Carbon Dioxide 23 (21-32) mmol/L Anion Gap 13.9 (5.0-14.0) mmol/L BUN 22 H (7-18) mg/dL Creatinine 1.1 H (0.6-1.0) mg/dL Est Cr Clr Drug Dosing 31.90 mL/min Estimated GFR (MDRD) 48 L (>60) Glucose 139 H (74-106) mg/dL Calcium 9.1 (8.5-10.1) mg/dL Med Orders - Current: Current Medications Acetaminophen (Tylenol Extra Strength) 1,000 mg PO Q6H PRN PRN Reason: Pain/Fever Last Admin: 12/22/17 09:07 Dose: 1,000 mg Albuterol (Proventil Neb Soln) 2.5 mg NEB Q4H PRN PRN Reason: Shortness Of Breath/wheezing Albuterol/Ipratropium (Duoneb 3.0-0.5 Mg/3 Ml) 3 ml NEB QIDRT [facility] Last Admin: 12/22/17 07:20 Dose: 3 ml Allopurinol (Zyloprim) 150 mg PO DAILY [facility] Last Admin: 12/22/17 09:08 Dose: 150 mg Aspirin (Halfprin) 81 mg PO DAILY [facility] Last Admin: 12/22/17 09:07 Dose: 81 mg Benzonatate (Tessalon Perles) 100 mg PO TID PRN PRN Reason: Cough Budesonide (Pulmicort) 0.5 mg NEB BIDRT [facility] Last Admin: 12/22/17 07:20 Dose: 0.5 mg Calcium Carbonate/Glycine (Tums) 1,000 mg PO Q2H PRN PRN Reason: Indigestion Last Admin: 12/21/17 13:05 Dose: 1,000 mg Carvedilol (Coreg) 3.125 mg PO BIDAC [facility] Last Admin: 12/22/17 07:49 Dose: 3.125 mg Guaifenesin/Dextromethorphan (Robitussin Dm) 10 ml PO Q4H PRN PRN Reason: Cough Last Admin: 12/20/17 00:58 Dose: 10 ml Isosorbide Mononitrate (Imdur) 30 mg PO DAILY [facility] Last Admin: 12/22/17 09:09 Dose: 30 mg Levothyroxine Sodium (Levothyroxine) 75 mcg PO DAILY@0730 [facility] Last Admin: 12/22/17 07:50 Dose: 75 mcg Lorazepam (Ativan) 0.5 - 1 mg IVPUSH Q6H PRN PRN Reason: Nausea/Vomiting Last Admin: 12/21/17 23:55 Dose: 1 mg Ondansetron HCl (Zofran Odt) 4 mg PO Q6H PRN PRN Reason: Nausea able to take PO Last Admin: 12/21/17 13:05 Dose: 4 mg Oseltamivir Phosphate (Tamiflu) 30 mg PO BID [facility] Last Admin: 12/22/17 09:08 Dose: 30 mg Oxycodone HCl (Oxycodone) 5 mg PO Q4H PRN PRN Reason: Pain (moderate 4-6) Polyethylene Glycol (Miralax) 17 gm PO DAILY PRN PRN Reason: Constipation Potassium Chloride (Potassium Chloride) 10 meq PO DAILY [facility] Last Admin: 12/22/17 09:08 Dose: 10 meq Pravastatin Sodium (Pravachol) 40 mg PO BEDTIME [facility] Last Admin: 12/21/17 21:04 Dose: 40 mg Prednisone (Prednisone) 20 mg PO BIDAC [facility] Last Admin: 12/22/17 07:49 Dose: 20 mg Senna/Docusate Sodium (Senna Plus) 1 tab PO BID PRN PRN Reason: Constipation Sodium Chloride (Saline Flush) 10 ml FLUSH ASDIRECTED PRN PRN Reason: Keep Vein Open Theophylline (Pablito-24) 100 mg PO DAILY [facility] Last Admin: 12/22/17 09:07 Dose: 100 mg Theophylline (Theophylline Anhydrous) 300 mg PO DAILY [facility] Last Admin: 12/22/17 09:08 Dose: 300 mg Discontinued Medications Azithromycin (Zithromax) 500 mg PO ONETIME ONE Stop: 12/19/17 18:01 Last Admin: 12/19/17 21:01 Dose: 500 mg Azithromycin (Zithromax) 250 mg PO DAILY [facility] Last Admin: 12/22/17 09:08 Dose: 250 mg Ceftriaxone Sodium 1 gm/ (Sodium Chloride) 50 mls @ 100 mls/hr IV Q24H [facility] Last Admin: 12/20/17 17:16 Dose: 100 mls/hr Methylprednisolone Sodium Succinate (Solu-Medrol) 125 mg IVPUSH ONETIME ONE Stop: 12/19/17 17:53 Last Admin: 12/19/17 18:54 Dose: 125 mg Methylprednisolone Sodium Succinate (Solu-Medrol) 62.5 mg IVPUSH Q8H [facility] Stop: 12/20/17 02:01 Last Admin: 12/20/17 01:04 Dose: 62.5 mg Oseltamivir Phosphate (Tamiflu) 30 mg PO ONETIME ONE Stop: 12/19/17 18:01 Last Admin: 12/19/17 21:01 Dose: 30 mg Pantoprazole Sodium (Protonix) 40 mg PO ACBREAKFAST [facility] Last Admin: 12/22/17 07:48 Dose: 40 mg Potassium Chloride (Klor-Con M20) 40 meq PO ONETIME ONE Stop: 12/20/17 09:31 Last Admin: 12/20/17 11:02 Dose: 40 meq Sucralfate (Carafate) 1 gm PO TIDAC [facility] Last Admin: 12/22/17 07:48 Dose: Not Given - Exam Quality Assessment: No: Supplemental Oxygen General: Alert, Oriented, Cooperative, No Acute Distress Neck: Supple Lungs: Normal Respiratory Effort, Rhonchi (diffuse exp rhonchi) Cardiovascular: Regular Rhythm, Tachycardia GI/Abdominal Exam: Soft, No Distention Extremities: No Pedal Edema Psy/Mental Status: Alert, Normal Affect - Problem List & Annotations (1) Acute bronchitis SNOMED Code(s): 00684948 Code(s): J20.9 - ACUTE BRONCHITIS, UNSPECIFIED Status: Acute Current Visit: Yes Qualifiers: Bronchitis organism: unspecified organism Qualified Code(s): J20.9 - Acute bronchitis, unspecified (2) Acute exacerbation of chronic obstructive pulmonary disease (COPD) SNOMED Code(s): 857434162 Code(s): J44.1 - CHRONIC OBSTRUCTIVE PULMONARY DISEASE W (ACUTE) EXACERBATION Status: Acute Current Visit: Yes (3) Chronic kidney disease, stage III (moderate) SNOMED Code(s): 559825665 Code(s): N18.3 - CHRONIC KIDNEY DISEASE, STAGE 3 (MODERATE) Status: Chronic Current Visit: Yes (4) Paroxysmal atrial fibrillation SNOMED Code(s): 345001951 Code(s): I48.0 - PAROXYSMAL ATRIAL FIBRILLATION Status: Chronic Current Visit: Yes - Problem List Review Problem List Initiated/Reviewed/Updated: Yes - My Orders Last 24 Hours: My Active Orders 12/21/17 10:27 Calcium Carbonate [Tums] 1,000 mg PO Q2H PRN 12/21/17 11:00 Sucralfate [Carafate] 1 gm PO TIDAC 12/22/17 09:45 Doxycycline [Vibramycin] 100 mg Sodium Chloride 0.9% [Normal Saline] 100 ml IV Q12HR 12/22/17 13:00 Warfarin [Coumadin] 2.5 mg PO DAILY@1300 12/22/17 16:30 Pantoprazole [ProTONIX] 40 mg PO BIDAC 12/23/17 05:00 BASIC METABOLIC PANEL,BMP [CHEM] Timed CBC W/O DIFF,HEMOGRAM [HEME] Timed (1) INR,PT,PROTHROMBIN TIME [COAG] Timed - Plan Plan:: ASSESSMENT AND PLAN - Acute bronchitis with acute exacerbation of COPD - former smoker. Suspect influenza despite negative testing but cannot rule out bacterial infection at this time. Does not require supplemental oxygen but still symptomatic and does not feel any better. -Tamiflu -Change antibiotics to doxycycline -Scheduled and as needed nebulizers -Cough suppressant -Supplement oxygen if needed -Continue Pulmicort -Sputum culture if able Increased esophageal reflux symptoms - could be related to steroids, did not improve any with sucralfate. -Increase PPI to twice daily -Tums as needed Hypokalemia - potassium level stable and in the normal range. Paroxysmal atrial fibrillation - currently in sinus rhythm. She is chronically anticoagulated, INR in the normal range. -Restart warfarin today, recheck INR in the morning -Usual dose is 1.25 mg on Sunday and Sunday and 2.5 mg the rest of the week Stage III chronic kidney disease - renal function stable. Maintenance issues - - DVT prophylaxis - mechanical - GI prophylaxis - PPI - Nutrition - regular diet Disposition - anticipate discharge home after the hospital stay Holger Zambrano M.D.
[2017-12-22] MEDS: Doxycycline 100 MG in Sodium Chloride 0.9% 100 ML IV SCH ×2 (10:59→21:24)
[2017-12-22] MEDS: Calcium Carbonate 500 MG Tab.Chew PO PRN ×3 (13:56→22:55)
[2017-12-22] MEDS: Warfarin 2.5 MG Tab PO SCH (17:55)
[2017-12-22] MEDS: Pravastatin 20 MG Tab PO SCH (21:26)
[2017-12-22] MEDS: LORazepam 2 MG/ML MDV IVPUSH PRN (22:55)
[2017-12-23] MEDS: Budesonide 0.5 MG/2 ML Neb Susp NEB SCH ×2 (07:34→21:34)
[2017-12-23] MEDS: Albuterol/Ipratropium 3.0-0.5 MG/3 ML Neb Soln NEB SCH ×4 (07:34→21:30)
[2017-12-23] MEDS: Aspirin 81 MG Tab.EC PO SCH (08:34)
[2017-12-23] MEDS: Theophylline 100 MG Cap.ER PO SCH (08:34)
[2017-12-23] MEDS: Potassium Chloride 10 MEQ Cap.ER PO SCH (08:35)
[2017-12-23] MEDS: Isosorbide Mononitrate 30 MG Tab.ER PO SCH (08:35)
[2017-12-23] MEDS: Levothyroxine 75 MCG Tab PO SCH (08:37)
[2017-12-23] MEDS: Carvedilol 3.125 MG Tab PO SCH ×2 (08:37→17:12)
[2017-12-23] MEDS: predniSONE 20 MG Tab PO SCH ×2 (08:37→17:12)
[2017-12-23] MEDS: Pantoprazole 40 MG Tab.CR PO SCH ×2 (08:38→17:11)
[2017-12-23] MEDS: Theophylline 300 MG Tab.ER PO SCH (08:40)
[2017-12-23] MEDS: Allopurinol 300 MG Tab PO SCH (08:43)
[2017-12-23] MEDS: Acetaminophen 500 MG Tab PO PRN ×2 (08:48→21:29)
[2017-12-23] MEDS: Oseltamivir 30 MG Cap PO SCH ×2 (09:57→21:29)
[2017-12-23] MEDS: Doxycycline 100 MG in Sodium Chloride 0.9% 100 ML IV SCH ×2 (09:57→21:30)
--- NOTE | 2017-12-23 10:01 | PCM.PN ---
- General Info Date of Service: 12/23/17 Functional Status: Reports: Pain Controlled, Tolerating Diet - Review of Systems General: Reports: Weakness Pulmonary: Reports: Shortness of Breath, Cough Systems Review Comment:: No acute events overnight. Still not requiring supplemental oxygen but feels short of breath with even minimal activity and still has a harsh cough. Still significant wheezing on examination. No fevers. White blood cell count back into the normal range today. No complaints of chest pain or nausea. - Patient Data Vitals - Most Recent: Last Vital Signs Temp 35.8 C 12/23/17 08:53 Pulse 108 H 12/23/17 08:53 Resp 20 12/23/17 08:53 BP 145/76 H 12/23/17 08:53 Pulse Ox 93 L 12/23/17 08:53 Weight - Most Recent: 51.256 kg I&O - Last 24 Hours: Intake & Output 12/22/17 12/23/17 12/23/17 22:59 06:59 14:59 Intake Total 350 200 Balance 350 200 Lab Results Last 24 Hours: Laboratory Results - last 24 hr 12/23/17 12/23/17 12/23/17 Range/Units 05:20 05:20 05:20 WBC 6.2 (4.5-11.0) K/uL RBC 3.79 (3.30-5.50) M/uL Hgb 12.0 (12.0-15.0) g/dL Hct 37.0 (36.0-48.0) % MCV 98 (80-98) fL MCH 32 H (27-31) pg MCHC 32 (32-36) % Plt Count 152 (150-400) K/uL PT 21.9 H (9.5-12.0) sec INR 1.99 H (0.80-1.20) Sodium 144 (140-148) mmol/L Potassium 4.2 (3.6-5.2) mmol/L Chloride 111 H (100-108) mmol/L Carbon Dioxide 23 (21-32) mmol/L Anion Gap 14.2 H (5.0-14.0) mmol/L BUN 29 H (7-18) mg/dL Creatinine 1.1 H (0.6-1.0) mg/dL Est Cr Clr Drug Dosing 31.90 mL/min Estimated GFR (MDRD) 48 L (>60) Glucose 143 H (74-106) mg/dL Calcium 9.3 (8.5-10.1) mg/dL Kash Results Last 24 Hours: Microbiology 12/23/17 09:11 Gram Stain - Final Sputum - Expectorated Med Orders - Current: Current Medications Acetaminophen (Tylenol Extra Strength) 1,000 mg PO Q6H PRN PRN Reason: Pain/Fever Last Admin: 12/23/17 08:48 Dose: 1,000 mg Albuterol (Proventil Neb Soln) 2.5 mg NEB Q4H PRN PRN Reason: Shortness Of Breath/wheezing Albuterol/Ipratropium (Duoneb 3.0-0.5 Mg/3 Ml) 3 ml NEB QIDRT [facility] Last Admin: 12/23/17 07:34 Dose: 3 ml Allopurinol (Zyloprim) 150 mg PO DAILY [facility] Last Admin: 12/23/17 08:43 Dose: 150 mg Aspirin (Halfprin) 81 mg PO DAILY [facility] Last Admin: 12/23/17 08:34 Dose: 81 mg Benzonatate (Tessalon Perles) 100 mg PO TID PRN PRN Reason: Cough Budesonide (Pulmicort) 0.5 mg NEB BIDRT [facility] Last Admin: 12/23/17 07:34 Dose: 0.5 mg Calcium Carbonate/Glycine (Tums) 1,000 mg PO Q2H PRN PRN Reason: Indigestion Last Admin: 12/22/17 22:55 Dose: 1,000 mg Carvedilol (Coreg) 3.125 mg PO BIDAC [facility] Last Admin: 12/23/17 08:37 Dose: 3.125 mg Guaifenesin/Dextromethorphan (Robitussin Dm) 10 ml PO Q4H PRN PRN Reason: Cough Last Admin: 12/20/17 00:58 Dose: 10 ml Doxycycline Hyclate 100 mg/ (Sodium Chloride) 100 mls @ 100 mls/hr IV Q12H [facility] Last Admin: 12/23/17 09:57 Dose: 100 mls/hr Isosorbide Mononitrate (Imdur) 30 mg PO DAILY [facility] Last Admin: 12/23/17 08:35 Dose: 30 mg Levothyroxine Sodium (Levothyroxine) 75 mcg PO DAILY@0730 [facility] Last Admin: 12/23/17 08:37 Dose: 75 mcg Lorazepam (Ativan) 0.5 mg PO Q4H PRN PRN Reason: Anxiety Ondansetron HCl (Zofran Odt) 4 mg PO Q6H PRN PRN Reason: Nausea able to take PO Last Admin: 12/21/17 13:05 Dose: 4 mg Oseltamivir Phosphate (Tamiflu) 30 mg PO BID [facility] Last Admin: 12/23/17 09:57 Dose: 30 mg Oxycodone HCl (Oxycodone) 5 mg PO Q4H PRN PRN Reason: Pain (moderate 4-6) Pantoprazole Sodium (Protonix) 40 mg PO BIDAC [facility] Last Admin: 12/23/17 08:38 Dose: 40 mg Polyethylene Glycol (Miralax) 17 gm PO DAILY PRN PRN Reason: Constipation Potassium Chloride (Potassium Chloride) 10 meq PO DAILY [facility] Last Admin: 12/23/17 08:35 Dose: 10 meq Pravastatin Sodium (Pravachol) 40 mg PO BEDTIME [facility] Last Admin: 12/22/17 21:26 Dose: 40 mg Prednisone (Prednisone) 20 mg PO BIDAC [facility] Last Admin: 12/23/17 08:37 Dose: 20 mg Senna/Docusate Sodium (Senna Plus) 1 tab PO BID PRN PRN Reason: Constipation Sodium Chloride (Saline Flush) 10 ml FLUSH ASDIRECTED PRN PRN Reason: Keep Vein Open Theophylline (Pablito-24) 100 mg PO DAILY [facility] Last Admin: 12/23/17 08:34 Dose: 100 mg Theophylline (Theophylline Anhydrous) 300 mg PO DAILY [facility] Last Admin: 12/23/17 08:40 Dose: 300 mg Warfarin Sodium (Coumadin) 2.5 mg PO DAILY@1800 [facility] Last Admin: 12/22/17 17:55 Dose: 2.5 mg Discontinued Medications Azithromycin (Zithromax) 500 mg PO ONETIME ONE Stop: 12/19/17 18:01 Last Admin: 12/19/17 21:01 Dose: 500 mg Azithromycin (Zithromax) 250 mg PO DAILY [facility] Last Admin: 12/22/17 09:08 Dose: 250 mg Ceftriaxone Sodium 1 gm/ (Sodium Chloride) 50 mls @ 100 mls/hr IV Q24H [facility] Last Admin: 03/01/18 17:16 Dose: 100 mls/hr Lorazepam (Ativan) 0.5 - 1 mg IVPUSH Q6H PRN PRN Reason: Nausea/Vomiting Last Admin: 12/22/17 22:55 Dose: 1 mg Methylprednisolone Sodium Succinate (Solu-Medrol) 125 mg IVPUSH ONETIME ONE Stop: 12/19/17 17:53 Last Admin: 12/19/17 18:54 Dose: 125 mg Methylprednisolone Sodium Succinate (Solu-Medrol) 62.5 mg IVPUSH Q8H [facility] Stop: 12/20/17 02:01 Last Admin: 12/20/17 01:04 Dose: 62.5 mg Oseltamivir Phosphate (Tamiflu) 30 mg PO ONETIME ONE Stop: 12/19/17 18:01 Last Admin: 12/19/17 21:01 Dose: 30 mg Pantoprazole Sodium (Protonix) 40 mg PO ACBREAKFAST [facility] Last Admin: 12/22/17 07:48 Dose: 40 mg Potassium Chloride (Klor-Con M20) 40 meq PO ONETIME ONE Stop: 12/20/17 09:31 Last Admin: 12/20/17 11:02 Dose: 40 meq Sucralfate (Carafate) 1 gm PO TIDAC [facility] Last Admin: 12/22/17 07:48 Dose: Not Given - Exam Quality Assessment: No: Supplemental Oxygen General: Alert, Oriented, Cooperative, No Acute Distress Neck: Supple Lungs: Rhonchi (mild diffuse), Wheezing (diffuse exp). No: Normal Respiratory Effort (increased work of breathing) Cardiovascular: Regular Rhythm, Tachycardia GI/Abdominal Exam: Soft, No Distention Extremities: No Pedal Edema Psy/Mental Status: Alert, Normal Affect - Problem List & Annotations (1) Acute bronchitis SNOMED Code(s): 76745002 Code(s): J20.9 - ACUTE BRONCHITIS, UNSPECIFIED Status: Acute Current Visit: Yes Qualifiers: Bronchitis organism: unspecified organism Qualified Code(s): J20.9 - Acute bronchitis, unspecified (2) Acute exacerbation of chronic obstructive pulmonary disease (COPD) SNOMED Code(s): 753650044 Code(s): J44.1 - CHRONIC OBSTRUCTIVE PULMONARY DISEASE W (ACUTE) EXACERBATION Status: Acute Current Visit: Yes (3) Chronic kidney disease, stage III (moderate) SNOMED Code(s): 166616062 Code(s): N18.3 - CHRONIC KIDNEY DISEASE, STAGE 3 (MODERATE) Status: Chronic Current Visit: Yes (4) Paroxysmal atrial fibrillation SNOMED Code(s): 490608082 Code(s): I48.0 - PAROXYSMAL ATRIAL FIBRILLATION Status: Chronic Current Visit: Yes - Problem List Review Problem List Initiated/Reviewed/Updated: Yes - My Orders Last 24 Hours: My Active Orders 12/22/17 10:00 Doxycycline [Vibramycin] 100 mg Sodium Chloride 0.9% [Normal Saline] 100 ml IV Q12H 12/22/17 16:30 Pantoprazole [ProTONIX] 40 mg PO BIDAC 12/22/17 18:00 Warfarin [Coumadin] 2.5 mg PO DAILY@1800 12/23/17 09:11 CULTURE RESPIRATORY + SMEAR [RM] Routine 12/23/17 09:59 LORazepam [Ativan] 0.5 mg PO Q4H PRN 12/24/17 05:00 BASIC METABOLIC PANEL,BMP [CHEM] Timed CBC W/O DIFF,HEMOGRAM [HEME] Timed (1) INR,PT,PROTHROMBIN TIME [COAG] Timed - Plan Plan:: ASSESSMENT AND PLAN - Acute bronchitis with acute exacerbation of COPD - former smoker. Suspect influenza despite negative testing but cannot rule out bacterial infection at this time. Vital signs are okay and she does not need supplemental oxygen but she is still very symptomatic with any activity and is not safe for outpatient management as of yet. Sputum culture with rare bacteria and and rare yeast noted. -Tamiflu -Continue doxycycline (started on 12/23) -Scheduled and as needed nebulizers -Cough suppressant -Supplement oxygen if needed -Continue Pulmicort -Follow-up sputum sample Increased esophageal reflux symptoms - better with increased PPI dosing. -Increase PPI to twice daily -Tums as needed Hypokalemia - potassium level stable and in the normal range. Paroxysmal atrial fibrillation - currently in sinus rhythm. She is chronically anticoagulated, INR in the normal range. -Continue warfarin at 2.5 mg daily, recheck INR in the morning Stage III chronic kidney disease - renal function stable. Maintenance issues - - DVT prophylaxis - mechanical - GI prophylaxis - PPI - Nutrition - regular diet Disposition - anticipate discharge home after the hospital stay, hopefully in the next day or 2. Holger Zambrano M.D.
[2017-12-23] MEDS: Warfarin 2.5 MG Tab PO SCH (17:12)
[2017-12-23] MEDS: Calcium Carbonate 500 MG Tab.Chew PO PRN ×2 (19:45→23:57)
[2017-12-23] MEDS: Pravastatin 20 MG Tab PO SCH (21:29)
[2017-12-23] MEDS: LORazepam 0.5 MG Tab PO PRN (23:57)
[2017-12-24] MEDS: Acetaminophen 500 MG Tab PO PRN ×3 (05:48→21:48)
[2017-12-24] MEDS: Budesonide 0.5 MG/2 ML Neb Susp NEB SCH ×2 (07:19→21:47)
[2017-12-24] MEDS: Albuterol/Ipratropium 3.0-0.5 MG/3 ML Neb Soln NEB SCH ×4 (07:19→21:47)
[2017-12-24] MEDS: Carvedilol 3.125 MG Tab PO SCH ×2 (07:55→16:33)
[2017-12-24] MEDS: Pantoprazole 40 MG Tab.CR PO SCH ×2 (07:56→16:32)
[2017-12-24] MEDS: Levothyroxine 75 MCG Tab PO SCH (07:56)
[2017-12-24] MEDS: predniSONE 20 MG Tab PO SCH ×2 (07:56→16:33)
[2017-12-24] MEDS: Aspirin 81 MG Tab.EC PO SCH (08:06)
[2017-12-24] MEDS: Theophylline 100 MG Cap.ER PO SCH (08:06)
[2017-12-24] MEDS: Isosorbide Mononitrate 30 MG Tab.ER PO SCH (08:07)
[2017-12-24] MEDS: Potassium Chloride 10 MEQ Cap.ER PO SCH (08:07)
[2017-12-24] MEDS: Oseltamivir 30 MG Cap PO SCH ×2 (08:07→21:48)
[2017-12-24] MEDS: Allopurinol 300 MG Tab PO SCH (08:07)
[2017-12-24] MEDS: Theophylline 300 MG Tab.ER PO SCH (08:08)
[2017-12-24] MEDS: Doxycycline 100 MG in Sodium Chloride 0.9% 100 ML IV SCH (10:15)
--- NOTE | 2017-12-24 13:57 | PCM.PN ---
- General Info Date of Service: 12/24/17 Subjective Update: This patient has shown further modest improvement over the past 24 hours, she is off of supplemental oxygen. Able to walk only short distances without becoming significantly short of breath, cough for the most part has been nonproductive and does seem to be somewhat improved. Vital signs have been fairly stable and she has remained afebrile. - Review of Systems General: Reports: Weakness. Denies: Fever, Chills Pulmonary: Reports: Shortness of Breath, Cough, Wheezing. Denies: Sputum, Hemoptysis Cardiovascular: Reports: Dyspnea on Exertion. Denies: Chest Pain, Palpitations , Orthopnea, PND, Edema, Lightheadedness Gastrointestinal: Reports: No Symptoms - Patient Data Vitals - Most Recent: Last Vital Signs Temp 96.1 F 12/24/17 10:57 Pulse 102 H 12/24/17 10:57 Resp 20 12/24/17 10:57 BP 110/79 12/24/17 10:57 Pulse Ox 90 L 12/24/17 10:57 Weight - Most Recent: 113 lb 0.002 oz I&O - Last 24 Hours: Intake & Output 12/23/17 12/24/17 12/24/17 22:59 06:59 14:59 Intake Total 1180 480 Balance 1180 480 Lab Results Last 24 Hours: Laboratory Results - last 24 hr 12/24/17 12/24/17 12/24/17 Range/Units 05:59 05:59 05:59 WBC 7.1 (4.5-11.0) K/uL RBC 3.81 (3.30-5.50) M/uL Hgb 11.9 L (12.0-15.0) g/dL Hct 36.9 (36.0-48.0) % MCV 97 (80-98) fL MCH 31 (27-31) pg MCHC 32 (32-36) % Plt Count 173 (150-400) K/uL PT 27.4 H (9.5-12.0) sec INR 2.47 H (0.80-1.20) Sodium 141 (140-148) mmol/L Potassium 4.0 (3.6-5.2) mmol/L Chloride 109 H (100-108) mmol/L Carbon Dioxide 20 L (21-32) mmol/L Anion Gap 16.0 H (5.0-14.0) mmol/L BUN 35 H (7-18) mg/dL Creatinine 1.1 H (0.6-1.0) mg/dL Est Cr Clr Drug Dosing 31.90 mL/min Estimated GFR (MDRD) 48 L (>60) Glucose 132 H (74-106) mg/dL Calcium 9.1 (8.5-10.1) mg/dL Kash Results Last 24 Hours: Microbiology 12/23/17 09:11 Gram Stain - Final Sputum - Expectorated Respiratory Culture - Preliminary Med Orders - Current: Current Medications Acetaminophen (Tylenol Extra Strength) 1,000 mg PO Q6H PRN PRN Reason: Pain/Fever Last Admin: 12/24/17 05:48 Dose: 1,000 mg Albuterol (Proventil Neb Soln) 2.5 mg NEB Q4H PRN PRN Reason: Shortness Of Breath/wheezing Albuterol/Ipratropium (Duoneb 3.0-0.5 Mg/3 Ml) 3 ml NEB QIDRT [facility] [place] Last Admin: 12/24/17 10:42 Dose: 3 ml Allopurinol (Zyloprim) 150 mg PO DAILY [facility] [place] Last Admin: 12/24/17 08:07 Dose: 150 mg Aspirin (Halfprin) 81 mg PO DAILY [facility] [place] Last Admin: 12/24/17 08:06 Dose: 81 mg Benzonatate (Tessalon Perles) 100 mg PO TID PRN PRN Reason: Cough Budesonide (Pulmicort) 0.5 mg NEB BIDRT [facility] [place] Last Admin: 12/24/17 07:19 Dose: 0.5 mg Calcium Carbonate/Glycine (Tums) 1,000 mg PO Q2H PRN PRN Reason: Indigestion Last Admin: 12/23/17 23:57 Dose: 1,000 mg Carvedilol (Coreg) 3.125 mg PO BIDAC [facility] [place] Last Admin: 12/24/17 07:55 Dose: 3.125 mg Guaifenesin/Dextromethorphan (Robitussin Dm) 10 ml PO Q4H PRN PRN Reason: Cough Last Admin: 12/20/17 00:58 Dose: 10 ml Doxycycline Hyclate 100 mg/ (Sodium Chloride) 100 mls @ 100 mls/hr IV Q12H [facility] [place] Last Admin: 12/24/17 10:15 Dose: 100 mls/hr Isosorbide Mononitrate (Imdur) 30 mg PO DAILY [facility] [place] Last Admin: 12/24/17 08:07 Dose: 30 mg Levothyroxine Sodium (Levothyroxine) 75 mcg PO DAILY@0730 [facility] [place] Last Admin: 12/24/17 07:56 Dose: 75 mcg Lorazepam (Ativan) 0.5 mg PO Q4H PRN PRN Reason: Anxiety Last Admin: 12/23/17 23:57 Dose: 0.5 mg Ondansetron HCl (Zofran Odt) 4 mg PO Q6H PRN PRN Reason: Nausea able to take PO Last Admin: 12/21/17 13:05 Dose: 4 mg Oseltamivir Phosphate (Tamiflu) 30 mg PO BID [facility] [place] Last Admin: 12/24/17 08:07 Dose: 30 mg Oxycodone HCl (Oxycodone) 5 mg PO Q4H PRN PRN Reason: Pain (moderate 4-6) Pantoprazole Sodium (Protonix) 40 mg PO BIDAC [facility] [place] Last Admin: 12/24/17 07:56 Dose: 40 mg Polyethylene Glycol (Miralax) 17 gm PO DAILY PRN PRN Reason: Constipation Potassium Chloride (Potassium Chloride) 10 meq PO DAILY [facility] [place] Last Admin: 12/24/17 08:07 Dose: 10 meq Pravastatin Sodium (Pravachol) 40 mg PO BEDTIME [facility] [place] Last Admin: 12/23/17 21:29 Dose: 40 mg Prednisone (Prednisone) 20 mg PO BIDAC [facility] [place] Last Admin: 12/24/17 07:56 Dose: 20 mg Senna/Docusate Sodium (Senna Plus) 1 tab PO BID PRN PRN Reason: Constipation Sodium Chloride (Saline Flush) 10 ml FLUSH ASDIRECTED PRN PRN Reason: Keep Vein Open Theophylline (Pablito-24) 100 mg PO DAILY [facility] [place] Last Admin: 12/24/17 08:06 Dose: 100 mg Theophylline (Theophylline Anhydrous) 300 mg PO DAILY [facility] [place] Last Admin: 12/24/17 08:08 Dose: 300 mg Warfarin Sodium (Coumadin) 2.5 mg PO DAILY@1800 [facility] [place] Last Admin: 12/23/17 17:12 Dose: 2.5 mg Discontinued Medications Azithromycin (Zithromax) 500 mg PO ONETIME ONE Stop: 12/19/17 18:01 Last Admin: 12/19/17 21:01 Dose: 500 mg Azithromycin (Zithromax) 250 mg PO DAILY [facility] [place] Last Admin: 12/22/17 09:08 Dose: 250 mg Ceftriaxone Sodium 1 gm/ (Sodium Chloride) 50 mls @ 100 mls/hr IV Q24H [facility] [place] Last Admin: 12/20/17 17:16 Dose: 100 mls/hr Lorazepam (Ativan) 0.5 - 1 mg IVPUSH Q6H PRN PRN Reason: Nausea/Vomiting Last Admin: 12/22/17 22:55 Dose: 1 mg Methylprednisolone Sodium Succinate (Solu-Medrol) 125 mg IVPUSH ONETIME ONE Stop: 12/19/17 17:53 Last Admin: 12/19/17 18:54 Dose: 125 mg Methylprednisolone Sodium Succinate (Solu-Medrol) 62.5 mg IVPUSH Q8H [facility] [place] Stop: 12/20/17 02:01 Last Admin: 12/20/17 01:04 Dose: 62.5 mg Oseltamivir Phosphate (Tamiflu) 30 mg PO ONETIME ONE Stop: 12/19/17 18:01 Last Admin: 12/19/17 21:01 Dose: 30 mg Pantoprazole Sodium (Protonix) 40 mg PO ACBREAKFAST [facility] [place] Last Admin: 12/22/17 07:48 Dose: 40 mg Potassium Chloride (Klor-Con M20) 40 meq PO ONETIME ONE Stop: 12/20/17 09:31 Last Admin: 12/20/17 11:02 Dose: 40 meq Sucralfate (Carafate) 1 gm PO TIDAC [facility] [place] Last Admin: 12/22/17 07:48 Dose: Not Given - Exam Quality Assessment: DVT Prophylaxis. No: Supplemental Oxygen General: Alert, Oriented, Cooperative, Mild Distress Lungs: Decreased Breath Sounds, Rhonchi, Wheezing. No: Crackles, Rales, Rub, Stridor Cardiovascular: Regular Rate, Regular Rhythm, No Murmurs GI/Abdominal Exam: Soft, Non-Tender, No Organomegaly, No Distention Extremities: Non-Tender, No Pedal Edema Skin: Warm, Dry, Intact - Problem List Review Problem List Initiated/Reviewed/Updated: Yes - My Orders Last 24 Hours: My Active Orders 12/25/17 05:00 INR,PT,PROTHROMBIN TIME [COAG] Timed - Plan Plan:: ASSESSMENT AND PLAN - Acute bronchitis with acute exacerbation of COPD - former smoker. Suspect influenza despite negative testing but cannot rule out bacterial infection at this time. Vital signs are okay and she does not need supplemental oxygen but she continues to experience significant shortness of breath with minimal activity -Tamiflu -Continue doxycycline (started on 12/23) -Scheduled and as needed nebulizers -Cough suppressant -Supplement oxygen if needed -Continue Pulmicort Increased esophageal reflux symptoms - better with increased PPI dosing. -Increase PPI to twice daily -Tums as needed Hypokalemia - potassium level stable and in the normal range. Paroxysmal atrial fibrillation - currently in sinus rhythm. She is chronically anticoagulated, INR in the normal range. -Continue warfarin at 2.5 mg daily, recheck INR in the morning Stage III chronic kidney disease - renal function stable. Maintenance issues - - DVT prophylaxis - mechanical - GI prophylaxis - PPI - Nutrition - regular diet Disposition - anticipate discharge home after the hospital stay, hopefully in the next day or 2.
[2017-12-24] MEDS: Calcium Carbonate 500 MG Tab.Chew PO PRN ×2 (14:19→21:48)
[2017-12-24] MEDS: Warfarin 2.5 MG Tab PO SCH (17:53)
[2017-12-24] MEDS: Doxycycline 100 MG Cap PO SCH (21:48)
[2017-12-24] MEDS: LORazepam 0.5 MG Tab PO PRN (21:48)
[2017-12-24] MEDS: Pravastatin 20 MG Tab PO SCH (21:48)
[2017-12-25] MEDS: Budesonide 0.5 MG/2 ML Neb Susp NEB SCH (07:15)
[2017-12-25] MEDS: Albuterol/Ipratropium 3.0-0.5 MG/3 ML Neb Soln NEB SCH ×3 (07:15→14:36)
[2017-12-25] MEDS: Levothyroxine 75 MCG Tab PO SCH (08:39)
[2017-12-25] MEDS: Carvedilol 3.125 MG Tab PO SCH (08:39)
[2017-12-25] MEDS: predniSONE 20 MG Tab PO SCH (08:39)
[2017-12-25] MEDS: Pantoprazole 40 MG Tab.CR PO SCH (08:40)
[2017-12-25] MEDS: Aspirin 81 MG Tab.EC PO SCH (08:40)
[2017-12-25] MEDS: Isosorbide Mononitrate 30 MG Tab.ER PO SCH (08:40)
[2017-12-25] MEDS: Potassium Chloride 10 MEQ Cap.ER PO SCH (08:41)
[2017-12-25] MEDS: Theophylline 100 MG Cap.ER PO SCH (08:41)
[2017-12-25] MEDS: Oseltamivir 30 MG Cap PO SCH (08:41)
[2017-12-25] MEDS: Doxycycline 100 MG Cap PO SCH (08:41)
[2017-12-25] MEDS: Theophylline 300 MG Tab.ER PO SCH (08:41)
[2017-12-25] MEDS: Allopurinol 300 MG Tab PO SCH (08:42)
[2017-12-25 11:05] VITALS: BP 136/72
--- NOTE | 2017-12-25 16:16 | PCM.DCSUM1 ---
Discharge Summary - Hospital Course Brief History: Dee is an 82-year-old woman who was admitted through the emergency department with hypoxia, cough, and shortness of breath secondary to COPD exacerbation secondary to bronchitis. - Discharge Data Discharge Date: 12/25/17 Discharge Disposition: Home, Self-Care 01 Condition: Fair - Discharge Diagnosis/Problem(s) (1) Acute bronchitis SNOMED Code(s): 06836728 ICD Code: J20.9 - ACUTE BRONCHITIS, UNSPECIFIED Status: Acute Current Visit: Yes Qualifiers: Bronchitis organism: unspecified organism Qualified Code(s): J20.9 - Acute bronchitis, unspecified (2) Acute exacerbation of chronic obstructive pulmonary disease (COPD) SNOMED Code(s): 674507273 ICD Code: J44.1 - CHRONIC OBSTRUCTIVE PULMONARY DISEASE W (ACUTE) EXACERBATION Status: Acute Current Visit: Yes (3) Chronic kidney disease, stage III (moderate) SNOMED Code(s): 118666897 ICD Code: N18.3 - CHRONIC KIDNEY DISEASE, STAGE 3 (MODERATE) Status: Chronic Current Visit: Yes (4) Paroxysmal atrial fibrillation SNOMED Code(s): 699106241 ICD Code: I48.0 - PAROXYSMAL ATRIAL FIBRILLATION Status: Chronic Current Visit: Yes - Patient Summary/Data Hospital Course: Fantasma presented as a direct admission from the internal medicine clinic. She presented there with complaints of cough, shortness of breath and fatigue. She first noticed shortness of breath and cough approximately 3 days prior to admission. They were mild at onset but progressed over the last few days prior to admission. She was short of breath with any activity. Cough was occasionally productive for clear or yellow sputum. She had aches and pains in her chest and abdomen from coughing so much. She reported that she hurts all over with diffuse myalgias. No complaints of sore throat but she did have nasal congestion. She has had episodes of chills but no fevers that she was aware of. She had not measured her temperature at home. She had had some intermittent nausea, mostly in the morning but no vomiting. She was not aware of any sick contacts but was out about a fair amount. She did get her flu shot this year. Workup in the clinic included a clear chest x-ray, normal white blood cell count and negative influenza antigen. She was noted to be mildly tachycardic and had oxygen saturations below 90% at the time of presentation. On admission she was felt to have probable COPD exacerbation secondary to bronchitis, viral versus bacterial. She was placed on IV antibiotic therapy with azithromycin and Rocephin as well as oral Tamiflu. IV fluids were given for hydration as well as IV Solu-Medrol and nebulizer therapy for management of her COPD exacerbation. It took some time for symptoms to improve, she seemed to do better after the azithromycin and Rocephin were discontinued and she was placed on IV doxycycline. By the time of discharge she was up and walking in the halls without the use of supplemental oxygen. She did have some increase in esophageal reflux during hospitalization and her dose of Protonix was transiently increased to 40 mg twice daily. Daily INR levels were obtained to monitor her anticoagulation with the addition of antibiotics. Activity will be as tolerated and she will resume her usual diet Follow-up appointment will be scheduled with Dr. Christianson within one week. Follow-up appointment in the Coumadin clinic will be scheduled for December 28. - Patient Instructions Diet: Usual Diet as Tolerated Activity: As Tolerated Other/Special Instructions: Please schedule follow-up appointment with primary care provider within one week. Please schedule Coumadin clinic appointment for December 28. - Discharge Plan Prescriptions/Med Rec: Doxycycline Calcium [IMW: Doxycycline] 100 mg PO BID #10 capsule Home Medications: Home Meds Albuterol [Ventolin HFA] 2 puff INH Q4H PRN 03/13/14 [History] Allopurinol [Zyloprim] 150 mg PO DAILY 03/13/14 [History] Aspirin [Adult Low Dose Aspirin EC] 81 mg PO DAILY 03/13/14 [History] Budesonide [Pulmicort] 2 ml NEB BID 03/13/14 [History] Furosemide [Lasix] 40 mg PO DAILY PRN 03/13/14 [History] Ipratropium/Albuterol Sulfate [Duoneb 0.5 mg-3 mg/3 ml Soln] 3 ml NEB Q4HR PRN 03/13/14 [History] Isosorbide Mononitrate [Imdur] 30 mg PO DAILY 03/13/14 [History] Levothyroxine 75 mcg PO DAILY 03/13/14 [History] Potassium Chloride 10 meq PO DAILY 03/13/14 [History] Pravastatin [Pravachol] 40 mg PO BEDTIME 03/13/14 [History] Theophylline [Theophylline Anhydrous] 400 mg PO DAILY 03/13/14 [History] predniSONE [Prednisone] 2.5 mg PO DAILY 03/13/14 [History] Nitroglycerin [Nitrostat] 0.4 mg SL Q5M PRN 04/10/16 [History] Carvedilol 3.125 mg PO BIDAC 12/19/17 [History] Pantoprazole [ProTONIX] 40 mg PO DAILY 12/19/17 [History] Warfarin [Coumadin] 1.25 mg PO ASDIRECTED 12/19/17 [History] Warfarin [Coumadin] 2.5 mg PO DAILY 12/19/17 [History] Doxycycline Calcium [IMW: Doxycycline] 100 mg PO BID #10 capsule 12/25/17 [Rx] Referrals: Uli Christianson MD [Primary Care Provider] - 12/27/17 1:00 pm - Discharge Summary/Plan Comment DC Time >30 min.: No - Patient Data Vitals - Most Recent: Last Vital Signs Temp 96.9 F 12/25/17 11:02 Pulse 93 12/25/17 11:02 Resp 18 12/25/17 11:02 BP 136/72 12/25/17 11:02 Pulse Ox 94 L 12/25/17 11:02 Weight - Most Recent: 113 lb 0.002 oz I&O - Last 24 hours: Intake & Output 12/25/17 12/25/17 12/25/17 06:59 14:59 22:59 Intake Total 240 Balance 240 Lab Results - Last 24 hrs: Laboratory Results - last 24 hr 12/25/17 Range/Units 05:00 PT 29.9 H (9.5-12.0) sec INR 2.68 H (0.80-1.20) ILAN Results - Last 24 hrs: Microbiology 12/23/17 09:11 Gram Stain - Final Sputum - Expectorated Respiratory Culture - Final YEAST Med Orders - Current: Current Medications Acetaminophen (Tylenol Extra Strength) 1,000 mg PO Q6H PRN PRN Reason: Pain/Fever Last Admin: 12/24/17 21:48 Dose: 1,000 mg Albuterol (Proventil Neb Soln) 2.5 mg NEB Q4H PRN PRN Reason: Shortness Of Breath/wheezing Albuterol/Ipratropium (Duoneb 3.0-0.5 Mg/3 Ml) 3 ml NEB QIDRT [facility] Last Admin: 12/25/17 14:36 Dose: 3 ml Allopurinol (Zyloprim) 150 mg PO DAILY [facility] Last Admin: 12/25/17 08:42 Dose: 150 mg Aspirin (Halfprin) 81 mg PO DAILY [facility] Last Admin: 12/25/17 08:40 Dose: 81 mg Benzonatate (Tessalon Perles) 100 mg PO TID PRN PRN Reason: Cough Budesonide (Pulmicort) 0.5 mg NEB BIDRT [facility] Last Admin: 12/25/17 07:15 Dose: 0.5 mg Calcium Carbonate/Glycine (Tums) 1,000 mg PO Q2H PRN PRN Reason: Indigestion Last Admin: 12/24/17 21:48 Dose: 1,000 mg Carvedilol (Coreg) 3.125 mg PO BIDAC [facility] Last Admin: 12/25/17 08:39 Dose: 3.125 mg Doxycycline Hyclate (Vibramycin) 100 mg PO BID [facility] Last Admin: 12/25/17 08:41 Dose: 100 mg Guaifenesin/Dextromethorphan (Robitussin Dm) 10 ml PO Q4H PRN PRN Reason: Cough Last Admin: 12/20/17 00:58 Dose: 10 ml Isosorbide Mononitrate (Imdur) 30 mg PO DAILY [facility] Last Admin: 12/25/17 08:40 Dose: 30 mg Levothyroxine Sodium (Levothyroxine) 75 mcg PO DAILY@0730 [facility] Last Admin: 12/25/17 08:39 Dose: 75 mcg Lorazepam (Ativan) 0.5 mg PO Q4H PRN PRN Reason: Anxiety Last Admin: 12/24/17 21:48 Dose: 0.5 mg Ondansetron HCl (Zofran Odt) 4 mg PO Q6H PRN PRN Reason: Nausea able to take PO Last Admin: 12/21/17 13:05 Dose: 4 mg Oseltamivir Phosphate (Tamiflu) 30 mg PO BID [facility] Last Admin: 12/25/17 08:41 Dose: 30 mg Oxycodone HCl (Oxycodone) 5 mg PO Q4H PRN PRN Reason: Pain (moderate 4-6) Pantoprazole Sodium (Protonix) 40 mg PO BIDAC [facility] Last Admin: 12/25/17 08:40 Dose: 40 mg Polyethylene Glycol (Miralax) 17 gm PO DAILY PRN PRN Reason: Constipation Potassium Chloride (Potassium Chloride) 10 meq PO DAILY [facility] Last Admin: 12/25/17 08:41 Dose: 10 meq Pravastatin Sodium (Pravachol) 40 mg PO BEDTIME [facility] Last Admin: 12/24/17 21:48 Dose: 40 mg Prednisone (Prednisone) 20 mg PO BIDAC [facility] Last Admin: 12/25/17 08:39 Dose: 20 mg Senna/Docusate Sodium (Senna Plus) 1 tab PO BID PRN PRN Reason: Constipation Sodium Chloride (Saline Flush) 10 ml FLUSH ASDIRECTED PRN PRN Reason: Keep Vein Open Theophylline (Pablito-24) 100 mg PO DAILY [facility] Last Admin: 12/25/17 08:41 Dose: 100 mg Theophylline (Theophylline Anhydrous) 300 mg PO DAILY [facility] Last Admin: 12/25/17 08:41 Dose: 300 mg Warfarin Sodium (Coumadin) 2.5 mg PO DAILY@1800 [facility] Last Admin: 12/24/17 17:53 Dose: 2.5 mg Discontinued Medications Azithromycin (Zithromax) 500 mg PO ONETIME ONE Stop: 12/19/17 18:01 Last Admin: 12/19/17 21:01 Dose: 500 mg Azithromycin (Zithromax) 250 mg PO DAILY [facility] Last Admin: 12/22/17 09:08 Dose: 250 mg Ceftriaxone Sodium 1 gm/ (Sodium Chloride) 50 mls @ 100 mls/hr IV Q24H [facility] Last Admin: 12/20/17 17:16 Dose: 100 mls/hr Doxycycline Hyclate 100 mg/ (Sodium Chloride) 100 mls @ 100 mls/hr IV Q12H [facility] Last Admin: 12/24/17 10:15 Dose: 100 mls/hr Lorazepam (Ativan) 0.5 - 1 mg IVPUSH Q6H PRN PRN Reason: Nausea/Vomiting Last Admin: 12/22/17 22:55 Dose: 1 mg Methylprednisolone Sodium Succinate (Solu-Medrol) 125 mg IVPUSH ONETIME ONE Stop: 12/19/17 17:53 Last Admin: 12/19/17 18:54 Dose: 125 mg Methylprednisolone Sodium Succinate (Solu-Medrol) 62.5 mg IVPUSH Q8H [facility] Stop: 12/20/17 02:01 Last Admin: 12/20/17 01:04 Dose: 62.5 mg Oseltamivir Phosphate (Tamiflu) 30 mg PO ONETIME ONE Stop: 12/19/17 18:01 Last Admin: 12/19/17 21:01 Dose: 30 mg Pantoprazole Sodium (Protonix) 40 mg PO ACBREAKFAST [facility] Last Admin: 12/22/17 07:48 Dose: 40 mg Potassium Chloride (Klor-Con M20) 40 meq PO ONETIME ONE Stop: 12/20/17 09:31 Last Admin: 12/20/17 11:02 Dose: 40 meq Sucralfate (Carafate) 1 gm PO TIDAC [facility] Last Admin: 12/22/17 07:48 Dose: Not Given - Exam General: Reports: Alert, Oriented, Cooperative, No Acute Distress Lungs: Reports: Decreased Breath Sounds. Denies: Rales, Rhonchi, Rub, Stridor, Wheezing Cardiovascular: Reports: Regular Rate, Regular Rhythm, No Murmurs GI/Abdominal Exam: Soft, Non-Tender, No Organomegaly, No Distention Extremities: Non-Tender, No Pedal Edema Skin: Reports: Warm, Dry, Intact *Q Meaningful Use (DIS) - VTE *Q VTE Criteria *Q: - Stroke *Q Stroke Criteria *Q: - AMI *Q AMI Criteria *Q:
== END 2017-12-25 16:45 | disposition home or self-care (01) | DRG 192 ==
LOC: JP.MS 17:09
PROVIDERS: ADMIT Internal Medicine; ATTEND Internal Medicine
DX: J44.0 Chronic obstructive pulmonary disease with (acute) lower respiratory infection (principal); J20.9 Acute bronchitis, unspecified; J44.1 Chronic obstructive pulmonary disease with (acute) exacerbation; Z87.891 Personal history of nicotine dependence; E87.6 Hypokalemia; I48.0 Paroxysmal atrial fibrillation; Z66 Do not resuscitate; Z79.82 Long term (current) use of aspirin; Z79.01 Long term (current) use of anticoagulants; Z88.1 Allergy status to other antibiotic agents; K21.9 Gastro-esophageal reflux disease without esophagitis; Z79.52 Long term (current) use of systemic steroids; R09.02 Hypoxemia; R11.2 Nausea with vomiting, unspecified
CPT/HCPCS: 36415; 80048; 85027; 85610; 87070; 87077; 87205; 94640; 94667; 94668; A9270-GY; J0696; J2060; J2930; J7030; J7050; J7620; J7626

== ENCOUNTER 2018-01-02 16:38 | Inpatient (IN) | payer MEDICARE, BC ==
[2018-01-02] MEDS ORDERED: Ondansetron 4 MG/2 ML SDV IVPUSH ONE ×2 (17:45→20:56)
[2018-01-02] MEDS ORDERED: Sodium Chloride 0.9% 1,000 ML IV SCH (17:45)
--- NOTE | 2018-01-02 18:15 | EDM.PDOC ---
ED HPI GENERAL MEDICAL PROBLEM - General Chief Complaint: Gastrointestinal Problem Stated Complaint: NO APPETITE / NAUSEA Time Seen by Provider: 01/02/18 17:30 Source of Information: Reports: Patient History Limitations: Reports: No Limitations - History of Present Illness INITIAL COMMENTS - FREE TEXT/NARRATIVE: 82-year-old female who was recently in the hospital for IV antibiotic treatment of COPD exacerbation and bronchitis has had persistent nausea and vomiting since she was discharged. She has been out for 7 days but did not want to complain because her daughter was going on vacation and if she said something her daughter would not go. She is managing to keep some water down, but if she tries to eat or drink anything else she has bilious emesis. She is having some abdominal cramping, and mucousy stools. No fevers or chills, no back pain, her breathing has been good. No blood in the stool or emesis. Duration: Day(s): (7 days, since she was discharged from the hospital) Location: Reports: Abdomen Severity: Moderate Associated Symptoms: Reports: Malaise, Nausea/Vomiting, Weakness. Denies: Chest Pain, Fever/Chills, Headaches denies Pain Score (Numeric/FACES): 0 - Related Data Allergies Allergy/AdvReac Type Severity Reaction Status Date / Time amoxicillin [Amoxicillin] Allergy Cannot Verified 01/02/18 17:15 Remember levofloxacin [From Levaquin] Allergy Other Verified 01/02/18 17:15 Home Meds: Home Meds Albuterol [Ventolin HFA] 2 puff INH Q4H PRN 03/13/14 [History] Allopurinol [Zyloprim] 150 mg PO DAILY 03/13/14 [History] Aspirin [Adult Low Dose Aspirin EC] 81 mg PO DAILY 03/13/14 [History] Budesonide [Pulmicort] 2 ml NEB BID 03/13/14 [History] Furosemide [Lasix] 40 mg PO DAILY PRN 03/13/14 [History] Ipratropium/Albuterol Sulfate [Duoneb 0.5 mg-3 mg/3 ml Soln] 3 ml NEB Q4HR PRN 03/13/14 [History] Isosorbide Mononitrate [Imdur] 30 mg PO DAILY 03/13/14 [History] Levothyroxine 75 mcg PO DAILY 03/13/14 [History] Potassium Chloride 10 meq PO DAILY 03/13/14 [History] Pravastatin [Pravachol] 40 mg PO BEDTIME 03/13/14 [History] Theophylline [Theophylline Anhydrous] 400 mg PO DAILY 03/13/14 [History] predniSONE [Prednisone] 2.5 mg PO DAILY 03/13/14 [History] Nitroglycerin [Nitrostat] 0.4 mg SL Q5M PRN 04/10/16 [History] Carvedilol 3.125 mg PO BIDAC 12/19/17 [History] Pantoprazole [ProTONIX] 40 mg PO DAILY 12/19/17 [History] Warfarin [Coumadin] 1.25 mg PO ASDIRECTED 12/19/17 [History] Warfarin [Coumadin] 2.5 mg PO DAILY 12/19/17 [History] Codeine/guaiFENesin [Robitussin AC] 10 ml PO Q4H PRN #8 oz 12/25/17 [Rx] Past Medical History HEENT History: Reports: Hard of Hearing, Impaired Vision 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 Respiratory History: Reports: Bronchitis, Recurrent, Pneumonia, Recurrent Gastrointestinal History: Reports: [employer] History: Reports: Musculoskeletal History: Reports: Other (See Below) Other Musculoskeletal History: bilateral shoulder pain Neurological History: Reports: TIA Endocrine/Metabolic History: Reports: Hypothyroidism - Infectious Disease History Infectious Disease History: Reports: Chicken Pox - Past Surgical History HEENT Surgical History: Reports: None Respiratory Surgical History: Reports: None GI Surgical History: Reports: Appendectomy, Cholecystectomy Musculoskeletal Surgical History: Reports: Other (See Below) Other Musculoskeletal Surgeries/Procedures:: bryson in left leg Dermatological Surgical History: Reports: None Social & Family History - Family History Family Medical History: Noncontributory Respiratory: Reports: COPD - Tobacco Use Smoking Status *Q: Never Smoker Used Tobacco, but Quit: Yes Month/Year Tobacco Last Used: 1954 Second Hand Smoke Exposure: No - Caffeine Use Caffeine Use: Reports: Coffee - Alcohol Use Days Per Week of Alcohol Use: 0 - Recreational Drug Use Recreational Drug Use: No ED ROS GENERAL - Review of Systems Review Of Systems: See Below Constitutional: Reports: Malaise, Weakness, Decreased Appetite. Denies: Fever, Chills HEENT: Reports: Other (Recently developed an oral yeast infection from IV and oral antibiotics) Respiratory: Reports: Cough (Intermittent chronic cough). Denies: Shortness of Breath Cardiovascular: Denies: Chest Pain GI/Abdominal: Reports: Abdominal Pain, Diarrhea (Frequent loose stools, with mucus but not runny or liquid stool), Nausea, Vomiting : Reports: No Symptoms Neurological: Reports: Weakness. Denies: Headache Psychiatric: Reports: No Symptoms ED EXAM, GI/ABD - Physical Exam Exam: See Below Exam Limited By: No Limitations General Appearance: Alert, No Apparent Distress Eyes: Bilateral: Normal Appearance (Good hydration, no jaundice) Throat/Mouth: Normal Inspection Head: Atraumatic Respiratory/Chest: No Respiratory Distress, Lungs Clear Cardiovascular: Tachycardia (mild tachycardia), Irregularly Irregular GI/Abdominal Exam: Normal Bowel Sounds, Soft, Tender (Patient is tender to palpation especially across the upper and left abdomen) Extremities: No: Pedal Edema Neurological: Alert, Oriented Psychiatric: Normal Affect, Normal Mood Skin Exam: Warm, Dry Course - Vital Signs Last Recorded V/S: Last Vital Signs Temp 97.6 F 01/04/18 02:21 Pulse 78 01/04/18 07:02 Resp 18 01/04/18 02:21 BP 105/45 L 01/04/18 02:21 Pulse Ox 97 01/04/18 02:21 - Orders/Labs/Meds Orders: Medication Orders Acetaminophen (Tylenol) 650 mg PO Q4H PRN PRN Reason: Pain (Mild 1-3)/fever Albuterol (Proventil Neb Soln) 2.5 mg NEB Q4H PRN PRN Reason: Shortness Of Breath/wheezing Albuterol/Ipratropium (Duoneb 3.0-0.5 Mg/3 Ml) 3 ml NEB QIDRT [facility] Last Admin: 01/04/18 07:01 Dose: 3 ml Admin: 01/03/18 20:26 Dose: 3 ml Admin: 01/03/18 14:44 Dose: 3 ml Admin: 01/03/18 10:47 Dose: 3 ml Admin: 01/03/18 07:20 Dose: 3 ml Admin: 01/02/18 22:23 Dose: 3 ml Allopurinol (Zyloprim) 150 mg PO DAILY [facility] Last Admin: 01/03/18 09:05 Dose: 300 mg Budesonide (Pulmicort) 0.5 mg NEB BIDRT [facility] Last Admin: 01/04/18 07:01 Dose: 0.5 mg Admin: 01/03/18 20:26 Dose: 0.5 mg Admin: 01/03/18 08:05 Dose: 0.5 mg Carvedilol (Coreg) 3.125 mg PO BIDAC [facility] Last Admin: 01/03/18 16:26 Dose: 3.125 mg Admin: 01/03/18 09:00 Dose: 3.125 mg Docusate Sodium (Colace) 100 mg PO BID PRN PRN Reason: Constipation Furosemide (Lasix) 40 mg PO DAILY PRN PRN Reason: Edema Guaifenesin/Codeine Phosphate (Robitussin Ac) 10 ml PO Q4H PRN PRN Reason: Cough Sodium Chloride (Normal Saline) 1,000 mls @ 100 mls/hr IV ASDIRECTED [facility] Last Admin: 01/04/18 05:45 Dose: 100 mls/hr Infusion: 01/04/18 05:39 Dose: 100 mls/hr Admin: 01/03/18 19:39 Dose: 100 mls/hr Infusion: 01/03/18 19:39 Dose: 100 mls/hr Admin: 01/03/18 09:54 Dose: 100 mls/hr Infusion: 01/03/18 09:54 Dose: 100 mls/hr Admin: 01/02/18 23:54 Dose: 100 mls/hr Isosorbide Mononitrate (Imdur) 30 mg PO DAILY [facility] Last Admin: 01/03/18 09:03 Dose: 30 mg Levothyroxine Sodium (Levothyroxine) 75 mcg PO ACBREAKFAST [facility] Last Admin: 01/03/18 09:01 Dose: 75 mcg Lorazepam (Ativan) 1 mg IV Q6H PRN PRN Reason: Nausea/Vomiting Morphine Sulfate (Morphine) 2 mg IVPUSH Q2H PRN PRN Reason: Pain (severe 7-10) Nitroglycerin (Nitrostat) 0.4 mg SL Q5M PRN PRN Reason: Chest Pain Ondansetron HCl (Zofran Odt) 4 mg PO Q6H PRN PRN Reason: Nausea able to take PO Last Admin: 01/03/18 02:42 Dose: 4 mg Ondansetron HCl (Zofran) 4 mg IV Q4H PRN PRN Reason: Nausea/Vomiting Oxycodone HCl (Oxycodone) 5 mg PO Q4H PRN PRN Reason: Pain (moderate 4-6) Pantoprazole Sodium (Protonix) 40 mg PO ACBREAKFAST [facility] Last Admin: 01/03/18 09:01 Dose: 40 mg Potassium Chloride (Potassium Chloride) 10 meq PO DAILY@0800 [facility] Last Admin: 01/03/18 09:02 Dose: 10 meq Prednisone (Prednisone) 2.5 mg PO DAILY [facility] Last Admin: 01/03/18 09:03 Dose: 2.5 mg Theophylline (Pablito-24) 100 mg PO DAILY [facility] Last Admin: 01/03/18 09:04 Dose: 100 mg Theophylline (Theophylline Anhydrous) 300 mg PO DAILY [facility] Last Admin: 01/03/18 09:04 Dose: 300 mg Warfarin Sodium (Coumadin) 1.25 mg PO MoFr@1300 [facility] Warfarin Sodium (Coumadin) 2.5 mg PO SuTuWeThSa@1300 [facility] Labs: Laboratory Tests 01/02/18 01/02/18 01/02/18 Range/Units 17:45 17:45 18:49 WBC 8.8 (4.5-11.0) K/uL RBC 4.75 (3.30-5.50) M/uL Hgb 15.2 H D (12.0-15.0) g/dL Hct 44.5 (36.0-48.0) % MCV 94 (80-98) fL MCH 32 H (27-31) pg MCHC 34 (32-36) % Plt Count 216 (150-400) K/uL Neut % (Auto) 76 H (36-66) % Lymph % (Auto) 14 L (24-44) % Aiken % (Auto) 9 H (2-6) % Eos % (Auto) 1 L (2-4) % Baso % (Auto) 0 (0-1) % PT 38.9 H (9.5-12.0) sec INR 3.45 H (0.80-1.20) Sodium 137 L (140-148) mmol/L Potassium 3.1 L (3.6-5.2) mmol/L Chloride 102 (100-108) mmol/L Carbon Dioxide 21 (21-32) mmol/L Anion Gap 17.1 H (5.0-14.0) mmol/L BUN 32 H (7-18) mg/dL Creatinine 1.1 H (0.6-1.0) mg/dL Est Cr Clr Drug Dosing 30.07 mL/min Estimated GFR (MDRD) 48 L (>60) Glucose 143 H (74-106) mg/dL Calcium 9.8 (8.5-10.1) mg/dL Total Bilirubin 0.8 (0.2-1.0) mg/dL AST 28 (15-37) U/L ALT 27 (12-78) U/L Alkaline Phosphatase 127 H (46-116) U/L Total Protein 6.4 (6.4-8.2) g/dL Albumin 3.0 L (3.4-5.0) g/dL Globulin 3.4 (2.3-3.5) g/dL Albumin/Globulin Ratio 0.9 L (1.2-2.2) Amylase 35 (25-115) U/L Lipase 348 (73-393) U/L Meds: Medications Generic Name Dose Route Start Last Admin Trade Name Freq PRN Reason Stop Dose Admin Acetaminophen 650 mg 01/02/18 21:52 Tylenol PO Q4H PRN Pain (Mild 1-3)/fever Albuterol 2.5 mg 01/02/18 21:52 Proventil Neb Soln NEB Q4H PRN Shortness Of Breath/wheezing Albuterol/Ipratropium 3 ml 01/02/18 22:00 01/04/18 07:01 Duoneb 3.0-0.5 Mg/3 Ml NEB 3 ml QIDRT [facility]A Administration Allopurinol 150 mg 01/03/18 09:00 01/03/18 09:05 Zyloprim PO 300 mg DAILY [facility]A Administration Budesonide 0.5 mg 01/03/18 07:30 01/04/18 07:01 Pulmicort NEB 0.5 mg BIDRT [facility]A Administration Carvedilol 3.125 mg 01/03/18 07:30 01/03/18 16:26 Coreg PO 3.125 mg BIDAC ANGELA Administration Docusate Sodium 100 mg 01/02/18 21:52 Colace PO BID PRN Constipation Furosemide 40 mg 01/02/18 21:52 Lasix PO DAILY PRN Edema Guaifenesin/Codeine Phosphate 10 ml 01/02/18 21:52 Robitussin Ac PO Q4H PRN Cough Sodium Chloride 1,000 mls @ 100 mls/hr 01/02/18 21:52 01/04/18 05:45 Normal Saline IV 100 mls/hr ASDIRECTED ANGELA Administration Isosorbide Mononitrate 30 mg 01/03/18 09:00 01/03/18 09:03 Imdur PO 30 mg DAILY [facility]A Administration Levothyroxine Sodium 75 mcg 01/03/18 07:30 01/03/18 09:01 Levothyroxine PO 75 mcg ACBREAKFAST [facility]A Administration Lorazepam 1 mg 01/02/18 21:52 Ativan IV Q6H PRN Nausea/Vomiting Morphine Sulfate 2 mg 01/02/18 21:52 Morphine IVPUSH Q2H PRN Pain (severe 7-10) Nitroglycerin 0.4 mg 01/02/18 21:52 Nitrostat SL Q5M PRN Chest Pain Ondansetron HCl 4 mg 01/02/18 21:52 01/03/18 02:42 Zofran Odt PO 4 mg Q6H PRN Administration Nausea able to take PO Ondansetron HCl 4 mg 01/02/18 21:52 Zofran IV Q4H PRN Nausea/Vomiting Oxycodone HCl 5 mg 01/02/18 21:52 Oxycodone PO Q4H PRN Pain (moderate 4-6) Pantoprazole Sodium 40 mg 01/03/18 07:30 01/03/18 09:01 Protonix PO 40 mg ACBREAKFAST [facility]A Administration Potassium Chloride 10 meq 01/03/18 08:00 01/03/18 09:02 Potassium Chloride PO 10 meq DAILY@0800 [facility] Administration Prednisone 2.5 mg 01/03/18 09:00 01/03/18 09:03 Prednisone PO 2.5 mg DAILY [facility]A Administration Theophylline 100 mg 01/03/18 09:00 01/03/18 09:04 Pablito-24 PO 100 mg DAILY [facility] Administration Theophylline 300 mg 01/03/18 09:00 01/03/18 09:04 Theophylline Anhydrous PO 300 mg DAILY [facility] Administration Warfarin Sodium 1.25 mg 01/04/18 13:00 Coumadin PO MoFr@1300 [facility]A Warfarin Sodium 2.5 mg 01/03/18 13:00 Coumadin PO SuTuWeThSa@1300 [facility] Discontinued Medications Generic Name Dose Route Start Last Admin Trade Name Freq PRN Reason Stop Dose Admin Budesonide 0.5 mg 01/02/18 21:52 01/02/18 22:23 Pulmicort NEB 0.5 mg BID [facility]A Administration Sodium Chloride 1,000 mls @ 500 mls/hr 01/02/18 17:45 01/02/18 19:14 Normal Saline IV 500 mls/hr ASDIRECTED [facility]GELA Administration Potassium Chloride 20 meq/ 0 mls @ 50 mls/hr 01/03/18 05:30 01/03/18 05:35 Premix IV 01/03/18 07:31 50 mls/hr Q2H [facility]GELA Administration Potassium Chloride 20 meq/ 112 mls @ 56 mls/hr 01/03/18 08:00 01/03/18 08:04 Lidocaine HCl 2 ml/ Sodium IV 01/03/18 09:59 56 mls/hr Chloride ONETIME ONE Administration Lidocaine HCl 2 ml 01/03/18 05:25 01/03/18 05:36 Xylocaine-Mpf 1% INJECT 01/03/18 05:26 2 ml ONETIME ONE Administration Ondansetron HCl 4 mg 01/02/18 17:45 01/02/18 19:16 Zofran IVPUSH 01/02/18 17:46 4 mg ONETIME ONE Administration Ondansetron HCl 4 mg 01/02/18 20:56 01/02/18 21:02 Zofran IVPUSH 01/02/18 20:57 4 mg ONETIME ONE Administration Warfarin Sodium 1.25 mg 01/03/18 14:20 01/03/18 14:07 Coumadin PO 01/03/18 14:21 1.25 mg ONETIME ONE Administration - Re-Assessments/Exams Free Text/Narrative Re-Assessment/Exam: 01/02/18 18:15 An IV was started and the patient was hydrated with normal saline at 500 mL an hour. She was also given 4 mg of IV Zofran. CBC, CMP, amylase and lipase were obtained, and we will attempt to get a stool sample for C. difficile and WBC evaluation. 01/02/18 18:47 Zofran did help her nausea. Potassium returned only 3.1, the rest of her labs were generally reassuring. I asked the hospitalist service to evaluate the patient for admission for symptom control and hydration. Departure - Departure Time of Disposition: 21:11 Disposition: Admitted As Inpatient 66 Condition: Fair Clinical Impression: Vomiting, Abdominal pain, Hypokalemia - Discharge Information
[2018-01-02] MEDS ORDERED: Albuterol 0.083% 2.5 MG/3 ML Neb Soln NEB PRN (21:52)
[2018-01-02] MEDS ORDERED: Ondansetron 4 MG/2 ML SDV IV PRN (21:52)
[2018-01-02] MEDS ORDERED: Furosemide 40 MG Tab PO PRN (21:52)
[2018-01-02] MEDS ORDERED: Budesonide 0.5 MG/2 ML Neb Susp NEB SCH (21:52)
[2018-01-02] MEDS ORDERED: oxyCODONE 5 MG Tab PO PRN (21:52)
[2018-01-02] MEDS ORDERED: LORazepam 2 MG/ML SDV IV PRN (21:52)
[2018-01-02] MEDS ORDERED: Docusate Sodium 100 MG Cap PO PRN (21:52)
[2018-01-02] MEDS ORDERED: Ondansetron 4 MG Tab.DIS PO PRN (21:52)
[2018-01-02] MEDS ORDERED: Morphine 2 MG/ML Syringe IVPUSH PRN (21:52)
[2018-01-02] MEDS ORDERED: Codeine/guaiFENesin 100mg-10 MG/5 ML Syrup 10 ML Cup PO PRN (21:52)
[2018-01-02] MEDS ORDERED: Nitroglycerin 0.4 MG Tab.SL SL PRN (21:52)
[2018-01-02] MEDS: Albuterol/Ipratropium 3.0-0.5 MG/3 ML Neb Soln NEB SCH (22:23)
--- NOTE | 2018-01-02 22:27 | PCM.HP ---
H&P History of Present Illness - General Date of Service: 01/02/18 Admit Problem/Dx: Admission Diagnosis/Problem Admission Diagnosis/Problem Abdominal pain Source of Information: Patient, Provider, RN History Limitations: Reports: No Limitations - History of Present Illness Initial Comments - Free Text/Narative: -82-year-old female who was recently in the hospital for IV antibiotic treatment of COPD exacerbation and bronchitis has had persistent nausea and vomiting since she was discharged. She has been out for 7 days but did not want to complain because her daughter was going on vacation and if she said something her daughter would not go. She is managing to keep some water down, but if she tries to eat or drink anything else she has ileus emesis. She is having some abdominal cramping, and mucousy stools. No fevers or chills, no back pain, her breathing has been good. No blood in the stool or emesis. Duration: Day(s): (7 days, since she was discharged from the hospital) Location: Reports: Abdomen Severity: Moderate Associated Symptoms: Reports: Malaise, Nausea/Vomiting, Weakness. Denies: Chest Pain, Fever/Chills, Headaches An IV was started and the patient was hydrated with normal saline at 500 mL an hour. She was also given 4 mg of IV Zofran. CBC, CMP, amylase and lipase were obtained, and we will attempt to get a stool sample for C. difficile and WBC evaluation. Zofran did help her nausea. Potassium returned only 3.1, the rest of her labs were generally reassuring. CT abdomen pelvis:no acute abnormality identified. no cause for patient symptoms is evident, multiple non acute findings as detailed. admission for symptom control and hydration. Onset of Symptoms: Reports: Gradual Duration of Symptoms: Reports: Day(s): (7) Location: Reports: Abdomen Quality: Reports: Ache, Burning Severity: Moderate Improves with: Reports: None Worsens with: Reports: Eating Associated Symptoms: Reports: Nausea/Vomiting denies Pain Score (Numeric/FACES): 0 - Related Data Allergies/Adverse Reactions: Allergies Allergy/AdvReac Type Severity Reaction Status Date / Time amoxicillin [Amoxicillin] Allergy Cannot Verified 01/02/18 17:15 Remember levofloxacin [From Levaquin] Allergy Other Verified 01/02/18 17:15 Home Medications: Home Meds Albuterol [Ventolin HFA] 2 puff INH Q4H PRN 03/13/14 [History] Allopurinol [Zyloprim] 150 mg PO DAILY 03/13/14 [History] Aspirin [Adult Low Dose Aspirin EC] 81 mg PO DAILY 03/13/14 [History] Budesonide [Pulmicort] 2 ml NEB BID 03/13/14 [History] Furosemide [Lasix] 40 mg PO DAILY PRN 03/13/14 [History] Ipratropium/Albuterol Sulfate [Duoneb 0.5 mg-3 mg/3 ml Soln] 3 ml NEB Q4HR PRN 03/13/14 [History] Isosorbide Mononitrate [Imdur] 30 mg PO DAILY 03/13/14 [History] Levothyroxine 75 mcg PO DAILY 03/13/14 [History] Potassium Chloride 10 meq PO DAILY 03/13/14 [History] Pravastatin [Pravachol] 40 mg PO BEDTIME 03/13/14 [History] Theophylline [Theophylline Anhydrous] 400 mg PO DAILY 03/13/14 [History] predniSONE [Prednisone] 2.5 mg PO DAILY 03/13/14 [History] Nitroglycerin [Nitrostat] 0.4 mg SL Q5M PRN 04/10/16 [History] Carvedilol 3.125 mg PO BIDAC 12/19/17 [History] Pantoprazole [ProTONIX] 40 mg PO DAILY 12/19/17 [History] Warfarin [Coumadin] 1.25 mg PO ASDIRECTED 12/19/17 [History] Warfarin [Coumadin] 2.5 mg PO DAILY 12/19/17 [History] Codeine/guaiFENesin [Robitussin AC] 10 ml PO Q4H PRN #8 oz 12/25/17 [Rx] Past Medical History HEENT History: Reports: Hard of Hearing, Impaired Vision 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 Respiratory History: Reports: Bronchitis, Recurrent, Pneumonia, Recurrent Gastrointestinal History: Reports: GERD CELLULOID TRIMMER History: Reports: Musculoskeletal History: Reports: Other (See Below) Other Musculoskeletal History: bilateral shoulder pain Neurological History: Reports: TIA Endocrine/Metabolic History: Reports: Hypothyroidism - Infectious Disease History Infectious Disease History: Reports: Chicken Pox - Past Surgical History HEENT Surgical History: Reports: None Respiratory Surgical History: Reports: None GI Surgical History: Reports: Appendectomy, Cholecystectomy Musculoskeletal Surgical History: Reports: Other (See Below) Other Musculoskeletal Surgeries/Procedures:: bryson in left leg Dermatological Surgical History: Reports: None Social & Family History - Family History Family Medical History: Noncontributory Respiratory: Reports: COPD - Tobacco Use Smoking Status *Q: Never Smoker Used Tobacco, but Quit: Yes Month/Year Tobacco Last Used: 1954 Second Hand Smoke Exposure: No - Caffeine Use Caffeine Use: Reports: Coffee - Alcohol Use Days Per Week of Alcohol Use: 0 - Recreational Drug Use Recreational Drug Use: No H&P Review of Systems - Review of Systems: Review Of Systems: See Below General: Reports: Chills, Weakness, Decreased Appetite HEENT: Reports: No Symptoms Pulmonary: Reports: Wheezing (copd), Cough (copd) Cardiovascular: Reports: No Symptoms Gastrointestinal: Reports: Abdominal Pain, Decreased Appetite, Nausea Genitourinary: Reports: Incontinence Musculoskeletal: Reports: No Symptoms Skin: Reports: No Symptoms Psychiatric: Reports: No Symptoms Neurological: Reports: No Symptoms Hematologic/Lymphatic: Reports: No Symptoms Immunologic: Reports: No Symptoms Exam - Exam Exam: See Below - Vital Signs Vital Signs: Last Vital Signs Temp 35.4 C 01/02/18 17:20 Pulse 107 H 01/02/18 21:03 Resp 18 01/02/18 21:03 BP 129/76 01/02/18 21:03 Pulse Ox 95 01/02/18 21:03 Weight: 49.578 kg - Exam Quality Assessment: DVT Prophylaxis General: Alert, Oriented, 4 HEENT: PERRLA, Hearing Intact, Mucosa Moist & [place], Nares Patent, Normal Nasal Septum, Posterior Pharynx Clear, Conjunctiva Clear, EOMI, EACs Clear, TMs Clear Neck: Supple Lungs: Clear to Auscultation, Normal Respiratory Effort Cardiovascular: Regular Rate, Regular Rhythm GI/Abdominal Exam: Normal Bowel Sounds, Soft, Non-Tender, No Organomegaly, No Distention, No Abnormal Bruit, No Mass, Pelvis Stable Back Exam: Normal Inspection, Full Range of Motion, NT Extremities: Normal Inspection, Normal Range of Motion, Non-Tender, No Pedal Edema, Normal Capillary Refill Skin: Warm, Dry, Intact Neurological: Cranial Nerves Intact, Reflexes Equal Bilateral Neuro Extensive - Mental Status: Alert, Oriented x3, Normal Mood/Affect, Normal Cognition Neuro Extensive - Motor, Sensory, Reflexes: CN II-XII Intact, Normal Gait, Normal Reflexes Psychiatric: Alert, Normal Affect, Normal Mood - Patient Data Result Diagrams: 01/02/18 17:45 01/02/18 17:45 *Q Meaningful Use (ADM) - VTE *Q VTE Criteria *Q: - Stroke *Q Stroke Criteria *Q: - AMI *Q AMI Criteria *Q: - Problem List (1) Abdominal pain SNOMED Code(s): 39060174 ICD Code: R10.9 - UNSPECIFIED ABDOMINAL PAIN Status: Acute Priority: High Current Visit: Yes (2) Hypokalemia SNOMED Code(s): 77651312 ICD Code: E87.6 - HYPOKALEMIA Status: Acute Priority: Medium Current Visit: Yes (3) Vomiting SNOMED Code(s): 548333288 ICD Code: R11.10 - VOMITING, UNSPECIFIED Status: Acute Priority: High Current Visit: Yes (4) snf (current) use of anticoagulants SNOMED Code(s): 467513052 ICD Code: Z79.01 - KNITTER MACHINE (CURRENT) USE OF ANTICOAGULANTS Status: Chronic Priority: Medium Current Visit: No (5) Paroxysmal atrial fibrillation SNOMED Code(s): 112344216 ICD Code: I48.0 - PAROXYSMAL ATRIAL FIBRILLATION Status: Chronic Priority : Medium Current Visit: No Problem List Initiated/Reviewed/Updated: Yes Orders Last 24hrs: Active Orders 24 hr Category Date Time Status Patient Status [ADT] Routine ADT 01/02/18 21:52 Active Intake and Output [RC] QSHIFT Care 01/02/18 21:52 Active Notify Provider Vital Signs [RC] ASDIRECTED Care 01/02/18 21:52 Active Oxygen Therapy [RC] PRN Care 01/02/18 21:52 Active Pulse Oximetry [RC] PRN Care 01/02/18 21:52 Active RT Aerosol Therapy [RC] ASDIRECTED Care 01/02/18 21:52 Active Up With Assistance [RC] ASDIRECTED Care 01/02/18 21:52 Active VTE/DVT Education [RC] Per Unit Routine Care 01/02/18 21:52 Active Vital Signs [RC] Q4H Care 01/02/18 21:52 Active Consult to Spiritual Care [CONS] Routine Cons 01/02/18 21:52 Active Clear Liquid Diet [DIET] Diet 01/02/18 Dinner Active BASIC METABOLIC PANEL,BMP [CHEM] AM Lab 01/03/18 05:11 Ordered CBC WITH AUTO DIFF [HEME] AM Lab 01/03/18 05:11 Ordered Acetaminophen [Tylenol] Med 01/02/18 21:52 Active 650 mg PO Q4H PRN Albuterol [Proventil Neb Soln] Med 01/02/18 21:52 Active 2.5 mg NEB Q4H PRN Albuterol/Ipratropium [DuoNeb 3.0-0.5 MG/3 ML] Med 01/02/18 22:00 Active 3 ml NEB QIDRT Allopurinol [Zyloprim] Med 01/03/18 09:00 Active 150 mg PO DAILY Budesonide [Pulmicort] Med 01/02/18 21:52 Active 0.5 mg NEB BID Carvedilol [Coreg] Med 01/03/18 07:30 Active 3.125 mg PO BIDAC Codeine/guaiFENesin [Robitussin AC] Med 01/02/18 21:52 Active 10 ml PO Q4H PRN Docusate Sodium [Colace] Med 01/02/18 21:52 Active 100 mg PO BID PRN Furosemide [Lasix] Med 01/02/18 21:52 Active 40 mg PO DAILY PRN Isosorbide Mononitrate [Imdur] Med 01/03/18 09:00 Active 30 mg PO DAILY LORazepam [Ativan] Med 01/02/18 21:52 Active 1 mg IV Q6H PRN Levothyroxine Med 01/03/18 07:30 Active 75 mcg PO ACBREAKFAST Morphine Med 01/02/18 21:52 Active 2 mg IVPUSH Q2H PRN Nitroglycerin [Nitrostat] Med 01/02/18 21:52 Active 0.4 mg SL Q5M PRN Ondansetron [Zofran ODT] Med 01/02/18 21:52 Active 4 mg PO Q6H PRN Ondansetron [Zofran] Med 01/02/18 21:52 Active 4 mg IV Q4H PRN Pantoprazole [ProTONIX] Med 01/03/18 07:30 Active 40 mg PO ACBREAKFAST Potassium Chloride Med 01/03/18 09:00 Pending 10 meq PO DAILY Sodium Chloride 0.9% [Normal Saline] 1,000 ml Med 01/02/18 21:52 Active IV ASDIRECTED Theophylline [Pablito-24] Med 01/03/18 09:00 Active 400 mg PO DAILY Warfarin [Coumadin] Med 01/02/18 21:52 Pending 1.25 mg PO ASDIRECTED Warfarin [Coumadin] Med 01/03/18 09:00 Pending 2.5 mg PO DAILY oxyCODONE Med 01/02/18 21:52 Active 5 mg PO Q4H PRN predniSONE Med 01/03/18 09:00 Active 2.5 mg PO DAILY Resuscitation Status Routine Resus Stat 01/02/18 21:08 Ordered Medication Orders Acetaminophen (Tylenol) 650 mg PO Q4H PRN PRN Reason: Pain (Mild 1-3)/fever Albuterol (Proventil Neb Soln) 2.5 mg NEB Q4H PRN PRN Reason: Shortness Of Breath/wheezing Albuterol/Ipratropium (Duoneb 3.0-0.5 Mg/3 Ml) 3 ml NEB QIDRT [facility] Last Admin: 01/02/18 22:23 Dose: 3 ml Allopurinol (Zyloprim) 150 mg PO DAILY [facility] Budesonide (Pulmicort) 0.5 mg NEB BID [facility] Last Admin: 01/02/18 22:23 Dose: 0.5 mg Carvedilol (Coreg) 3.125 mg PO BIDAC [facility] Docusate Sodium (Colace) 100 mg PO BID PRN PRN Reason: Constipation Furosemide (Lasix) 40 mg PO DAILY PRN PRN Reason: Edema Guaifenesin/Codeine Phosphate (Robitussin Ac) 10 ml PO Q4H PRN PRN Reason: Cough Sodium Chloride (Normal Saline) 1,000 mls @ 100 mls/hr IV ASDIRECTED [facility] Isosorbide Mononitrate (Imdur) 30 mg PO DAILY [facility] Levothyroxine Sodium (Levothyroxine) 75 mcg PO ACBREAKFAST [facility] Lorazepam (Ativan) 1 mg IV Q6H PRN PRN Reason: Nausea/Vomiting Morphine Sulfate (Morphine) 2 mg IVPUSH Q2H PRN PRN Reason: Pain (severe 7-10) Nitroglycerin (Nitrostat) 0.4 mg SL Q5M PRN PRN Reason: Chest Pain Ondansetron HCl (Zofran Odt) 4 mg PO Q6H PRN PRN Reason: Nausea able to take PO Ondansetron HCl (Zofran) 4 mg IV Q4H PRN PRN Reason: Nausea/Vomiting Oxycodone HCl (Oxycodone) 5 mg PO Q4H PRN PRN Reason: Pain (moderate 4-6) Pantoprazole Sodium (Protonix) 40 mg PO ACBREAKFAST [facility] Potassium Chloride (Potassium Chloride) 10 meq PO DAILY [facility] Prednisone (Prednisone) 2.5 mg PO DAILY [facility] Theophylline (Pablito-24) 400 mg PO DAILY [facility] Warfarin Sodium (Coumadin) 1.25 mg PO ASDIRECTED [facility] Warfarin Sodium (Coumadin) 2.5 mg PO DAILY [facility] Assessment/Plan Comment:: ASSESSMENT / PLAN -82-year-old female who was recently in the hospital for IV antibiotic treatment of COPD exacerbation and bronchitis has had persistent nausea and vomiting since she was discharged. She has been out for 7 days but did not want to complain because her daughter was going on vacation and if she said something her daughter would not go. She is managing to keep some water down, but if she tries to eat or drink anything else she has ileus emesis. She is having some abdominal cramping, and mucousy stools. No fevers or chills, no back pain, her breathing has been good. No blood in the stool or emesis. Duration: Day(s): (7 days, since she was discharged from the hospital) Location: Reports: Abdomen Severity: Moderate Associated Symptoms: Reports: Malaise, Nausea/Vomiting, Weakness. Denies: Chest Pain, Fever/Chills, Headaches An IV was started and the patient was hydrated with normal saline at 500 mL an hour. She was also given 4 mg of IV Zofran. CBC, CMP, amylase and lipase were obtained, and we will attempt to get a stool sample for C. difficile and WBC evaluation. Zofran did help her nausea. Potassium returned only 3.1, the rest of her labs were generally reassuring. CT abdomen pelvis:no acute abnormality identified. no cause for patient symptoms is evident, multiple non acute findings as detailed. admission for symptom control and hydration. Plan -Admit to ICU Med Surg overflow for further monitoring Abdominal Pain with nausea, vomiting and diarrhea -IV fluids for rehydration NS at 100 mL per hour -anti-emetics -Advise to notify nurses of any chest pain or other symptoms -And a.m. labs: CBC, BMP COPD -duonebs every 6 hrs -Pulimort neb every 12 hours -albuterol nebs prn -daily oral prednisone Afib -coumadine therapy -daily INR/PT Maintenance issues -Orders home meds: ordered -Nutrition: clear liquid advance as tolerated diet, daily Boost supplement -Vega catheter not indicated at this time -DVT: Coumadin -GI Prophalaxis; Protonix 40mg po daily -consult Spiritual; daily prayers CODE STATUS: DNR Admission status: Admit to ICU Med Surg. Overflow Admission justification. This patient will be admitted for inpatient services and is medically appropriate meeting medical necessity for inpatient admission as outlined in my documentation. I reasonably expect the patient will require inpatient services that span. Time over 2 midnights. I reasonably expect this patient to be discharged or transferred within 96 hours after admission to the critical access hospital. Disposition: home Primary care provider: Dr. Christianson Hospitalist: Dr. Zambrano
[2018-01-02] MEDS: Sodium Chloride 0.9% 1,000 ML IV SCH (23:54)
[2018-01-03] MEDS ORDERED: Potassium Chloride 20 MEQ in Premix Bag 1 BAG IV SCH (05:30)
--- NOTE | 2018-01-03 05:59 | PCM.SN ---
- Free Text/Narrative Note: call from ICU med overflow; potassium 2.8 a; hypokalemia p; Potassium 40 meq iv x one, magnesium level. recheck potassium level at 1300.
[2018-01-03] MEDS: Albuterol/Ipratropium 3.0-0.5 MG/3 ML Neb Soln NEB SCH ×4 (07:20→20:26)
[2018-01-03] MEDS ORDERED: Potassium Chloride 20 MEQ, Lidocaine 1% 2 ML in Sodium Chloride 0.9% 100 ML IV ONE (08:00)
[2018-01-03] MEDS: Budesonide 0.5 MG/2 ML Neb Susp NEB SCH ×2 (08:05→20:26)
[2018-01-03] MEDS: Carvedilol 3.125 MG Tab PO SCH ×2 (09:00→16:26)
[2018-01-03] MEDS ORDERED: Theophylline 100 MG Cap.ER PO SCH (09:00)
[2018-01-03] MEDS: Levothyroxine 75 MCG Tab PO SCH (09:01)
[2018-01-03] MEDS: Pantoprazole 40 MG Tab.CR PO SCH (09:01)
[2018-01-03] MEDS: Potassium Chloride 10 MEQ Cap.ER PO SCH (09:02)
[2018-01-03] MEDS: Isosorbide Mononitrate 30 MG Tab.ER PO SCH (09:03)
[2018-01-03] MEDS: predniSONE 5 MG Tab PO SCH (09:03)
[2018-01-03] MEDS: Theophylline 100 MG Cap.ER PO SCH (09:04)
[2018-01-03] MEDS: Theophylline 300 MG Tab.ER PO SCH (09:04)
[2018-01-03] MEDS: Allopurinol 300 MG Tab PO SCH (09:05)
--- NOTE | 2018-01-03 09:16 | CR ---
Abdomen 2V AP Flat Upright HISTORY: Nausea, vomiting. COMPARISON: None FINDINGS: Moderate stool throughout the colon likely represent mild constipation. Surgical clips in t he gallbladder fossa. There is no evidence for bowel obstruction or free air. Vascular calcifications in the low pelvis. Postoperative change left hip. Impression: Moderate stool throughout the colon may represent some mild constipation. No evidence for acute abdom inal process.
[2018-01-03] MEDS: Sodium Chloride 0.9% 1,000 ML IV SCH ×2 (09:54→19:39)
[2018-01-03] MEDS ORDERED: Warfarin 2.5 MG Tab PO SCH (13:00)
--- NOTE | 2018-01-03 13:58 | PCM.PN ---
- General Info Date of Service: 01/03/18 Functional Status: Reports: Pain Controlled, Tolerating Diet - Review of Systems General: Denies: Fever Gastrointestinal: Reports: Abdominal Pain, Diarrhea. Denies: Vomiting Systems Review Comment:: No acute events overnight. No vomiting since admission but she has had some ongoing diarrhea. No fevers. Abdominal pain is much better. Tolerating clear liquids. Potassium level down this morning from last night despite supplementation. - Patient Data Vitals - Most Recent: Last Vital Signs Temp 36.8 C 01/03/18 08:00 Pulse 68 01/03/18 10:48 Resp 18 01/03/18 01:55 BP 143/61 H 01/03/18 01:55 Pulse Ox 95 01/03/18 01:55 Weight - Most Recent: 49.578 kg I&O - Last 24 Hours: Intake & Output 01/02/18 01/03/18 01/03/18 22:59 06:59 14:59 Intake Total 360 Balance 360 Lab Results Last 24 Hours: Laboratory Results - last 24 hr 01/03/18 01/03/18 01/03/18 Range/Units 04:35 04:35 05:04 WBC 6.9 (4.5-11.0) K/uL RBC 4.02 (3.30-5.50) M/uL Hgb 12.9 D (12.0-15.0) g/dL Hct 38.5 (36.0-48.0) % MCV 96 (80-98) fL MCH 32 H (27-31) pg MCHC 34 (32-36) % Plt Count 180 (150-400) K/uL Neut % (Auto) 73 H (36-66) % Lymph % (Auto) 17 L (24-44) % Mills % (Auto) 9 H (2-6) % Eos % (Auto) 1 L (2-4) % Baso % (Auto) 0 (0-1) % Sodium 142 (140-148) mmol/L Potassium 2.8 L* (3.6-5.2) mmol/L Chloride 108 (100-108) mmol/L Carbon Dioxide 23 (21-32) mmol/L Anion Gap 13.8 (5.0-14.0) mmol/L BUN 26 H (7-18) mg/dL Creatinine 1.0 (0.6-1.0) mg/dL Est Cr Clr Drug Dosing 33.95 mL/min Estimated GFR (MDRD) 53 L (>60) Glucose 76 (74-106) mg/dL Calcium 8.3 L D (8.5-10.1) mg/dL Magnesium 1.8 (1.8-2.4) mg/dL 01/03/18 Range/Units 13:10 WBC (4.5-11.0) K/uL RBC (3.30-5.50) M/uL Hgb (12.0-15.0) g/dL Hct (36.0-48.0) % MCV (80-98) fL MCH (27-31) pg MCHC (32-36) % Plt Count (150-400) K/uL Neut % (Auto) (36-66) % Lymph % (Auto) (24-44) % Mills % (Auto) (2-6) % Eos % (Auto) (2-4) % Baso % (Auto) (0-1) % Sodium (140-148) mmol/L Potassium 4.3 (3.6-5.2) mmol/L Chloride (100-108) mmol/L Carbon Dioxide (21-32) mmol/L Anion Gap (5.0-14.0) mmol/L BUN (7-18) mg/dL Creatinine (0.6-1.0) mg/dL Est Cr Clr Drug Dosing mL/min Estimated GFR (MDRD) (>60) Glucose (74-106) mg/dL Calcium (8.5-10.1) mg/dL Magnesium (1.8-2.4) mg/dL Med Orders - Current: Current Medications Acetaminophen (Tylenol) 650 mg PO Q4H PRN PRN Reason: Pain (Mild 1-3)/fever Albuterol (Proventil Neb Soln) 2.5 mg NEB Q4H PRN PRN Reason: Shortness Of Breath/wheezing Albuterol/Ipratropium (Duoneb 3.0-0.5 Mg/3 Ml) 3 ml NEB QIDRT [facility] Last Admin: 01/03/18 10:47 Dose: 3 ml Allopurinol (Zyloprim) 150 mg PO DAILY [facility] Last Admin: 01/03/18 09:05 Dose: 300 mg Budesonide (Pulmicort) 0.5 mg NEB BIDRT [facility] Last Admin: 01/03/18 08:05 Dose: 0.5 mg Carvedilol (Coreg) 3.125 mg PO BIDAC [facility] Last Admin: 01/03/18 09:00 Dose: 3.125 mg Docusate Sodium (Colace) 100 mg PO BID PRN PRN Reason: Constipation Furosemide (Lasix) 40 mg PO DAILY PRN PRN Reason: Edema Guaifenesin/Codeine Phosphate (Robitussin Ac) 10 ml PO Q4H PRN PRN Reason: Cough Sodium Chloride (Normal Saline) 1,000 mls @ 100 mls/hr IV ASDIRECTED [facility] Last Admin: 01/03/18 09:54 Dose: 100 mls/hr Isosorbide Mononitrate (Imdur) 30 mg PO DAILY [facility] Last Admin: 01/03/18 09:03 Dose: 30 mg Levothyroxine Sodium (Levothyroxine) 75 mcg PO ACBREAKFAST [facility] Last Admin: 01/03/18 09:01 Dose: 75 mcg Lorazepam (Ativan) 1 mg IV Q6H PRN PRN Reason: Nausea/Vomiting Morphine Sulfate (Morphine) 2 mg IVPUSH Q2H PRN PRN Reason: Pain (severe 7-10) Nitroglycerin (Nitrostat) 0.4 mg SL Q5M PRN PRN Reason: Chest Pain Ondansetron HCl (Zofran Odt) 4 mg PO Q6H PRN PRN Reason: Nausea able to take PO Last Admin: 01/03/18 02:42 Dose: 4 mg Ondansetron HCl (Zofran) 4 mg IV Q4H PRN PRN Reason: Nausea/Vomiting Oxycodone HCl (Oxycodone) 5 mg PO Q4H PRN PRN Reason: Pain (moderate 4-6) Pantoprazole Sodium (Protonix) 40 mg PO ACBREAKFAST [facility] Last Admin: 01/03/18 09:01 Dose: 40 mg Potassium Chloride (Potassium Chloride) 10 meq PO DAILY@0800 [facility] Last Admin: 01/03/18 09:02 Dose: 10 meq Prednisone (Prednisone) 2.5 mg PO DAILY [facility] Last Admin: 01/03/18 09:03 Dose: 2.5 mg Theophylline (Pablito-24) 100 mg PO DAILY [facility] Last Admin: 01/03/18 09:04 Dose: 100 mg Theophylline (Theophylline Anhydrous) 300 mg PO DAILY [facility] Last Admin: 01/03/18 09:04 Dose: 300 mg Warfarin Sodium (Coumadin) 1.25 mg PO MoFr@1300 [facility] Warfarin Sodium (Coumadin) 2.5 mg PO SuTuWeThSa@1300 [facility] Discontinued Medications Budesonide (Pulmicort) 0.5 mg NEB BID [facility] Last Admin: 01/02/18 22:23 Dose: 0.5 mg Sodium Chloride (Normal Saline) 1,000 mls @ 500 mls/hr IV ASDIRECTED [facility] Last Admin: 01/02/18 19:14 Dose: 500 mls/hr Potassium Chloride 20 meq/ (Premix) 0 mls @ 50 mls/hr IV Q2H [facility] Stop: 01/03/18 07:31 Last Admin: 01/03/18 05:35 Dose: 50 mls/hr Potassium Chloride 20 meq/Lidocaine HCl 2 ml/ Sodium Chloride 112 mls @ 56 mls/ hr IV ONETIME ONE Stop: 01/03/18 09:59 Last Admin: 01/03/18 08:04 Dose: 56 mls/hr Lidocaine HCl (Xylocaine-Mpf 1%) 2 ml INJECT ONETIME ONE Stop: 01/03/18 05:26 Last Admin: 01/03/18 05:36 Dose: 2 ml Ondansetron HCl (Zofran) 4 mg IVPUSH ONETIME ONE Stop: 01/02/18 17:46 Last Admin: 01/02/18 19:16 Dose: 4 mg Ondansetron HCl (Zofran) 4 mg IVPUSH ONETIME ONE Stop: 01/02/18 20:57 Last Admin: 01/02/18 21:02 Dose: 4 mg - Exam Quality Assessment: No: Supplemental Oxygen General: Alert, Oriented, Cooperative, No Acute Distress Neck: Supple Lungs: Normal Respiratory Effort GI/Abdominal Exam: Soft, No Distention Extremities: No Pedal Edema Psy/Mental Status: Alert, Normal Affect - Problem List Review Problem List Initiated/Reviewed/Updated: Yes - My Orders Last 24 Hours: My Active Orders 01/03/18 Lunch Full Liquid Diet [DIET] 01/04/18 05:00 BASIC METABOLIC PANEL,BMP [CHEM] Timed INR,PT,PROTHROMBIN TIME [COAG] Timed - Plan Plan:: ASSESSMENT / PLAN Abdominal Pain with nausea, vomiting and diarrhea - no definite cause for the symptoms but they seem to be improving with conservative therapy including hydration at this time. She has not had any fevers. C. difficile testing was negative. CT was negative. Still evidence for dehydration and hypokalemia. -Continue IV fluids -anti-nausea medications as needed -Advance to full liquids Hypokalemia - level has dropped despite supplementation. -Supplement this morning and recheck this afternoon COPD - stable. -duonebs every 6 hrs -Pulimort neb every 12 hours -albuterol nebs prn -daily oral prednisone Afib - stable. -coumadine therapy -daily INR/PT Maintenance issues -Orders home meds: ordered -Nutrition: Full liquids -Vega catheter not indicated at this time -DVT: Coumadin -GI Prophalaxis; Protonix 40mg po daily -consult Spiritual; daily prayers Disposition: home in a day or 2 Holger Zambrano M.D.
[2018-01-03] MEDS ORDERED: Warfarin 2.5 MG Tab PO ONE (14:20)
[2018-01-04] MEDS: Sodium Chloride 0.9% 1,000 ML IV SCH (05:45)
[2018-01-04] MEDS: Budesonide 0.5 MG/2 ML Neb Susp NEB SCH ×2 (07:01→20:17)
[2018-01-04] MEDS: Albuterol/Ipratropium 3.0-0.5 MG/3 ML Neb Soln NEB SCH ×4 (07:01→20:17)
[2018-01-04] MEDS ORDERED: Potassium Chloride 20 MEQ Tab.ER PO ONE (09:00)
[2018-01-04] MEDS: Pantoprazole 40 MG Tab.CR PO SCH (09:09)
[2018-01-04] MEDS: Levothyroxine 75 MCG Tab PO SCH (09:10)
[2018-01-04] MEDS: Allopurinol 300 MG Tab PO SCH (09:10)
[2018-01-04] MEDS: Potassium Chloride 10 MEQ Cap.ER PO SCH (09:10)
[2018-01-04] MEDS: Isosorbide Mononitrate 30 MG Tab.ER PO SCH (09:10)
[2018-01-04] MEDS: Carvedilol 3.125 MG Tab PO SCH ×2 (09:11→16:02)
[2018-01-04] MEDS: Theophylline 100 MG Cap.ER PO SCH (09:11)
[2018-01-04] MEDS: Theophylline 300 MG Tab.ER PO SCH (09:11)
[2018-01-04] MEDS: predniSONE 5 MG Tab PO SCH (09:11)
[2018-01-04] MEDS: Acetaminophen 325 MG Tab PO PRN ×3 (11:33→21:38)
--- NOTE | 2018-01-04 11:52 | PCM.PN ---
- General Info Date of Service: 01/04/18 Functional Status: Reports: Pain Controlled, Tolerating Diet - Review of Systems General: Reports: Weakness Cardiovascular: Reports: Edema Systems Review Comment:: No acute events overnight. Continues to have diarrhea but no vomiting. She did not have fevers overnight. Tolerated full liquids yesterday. Still has some abdominal pain. Potassium level did drop after supplementation yesterday. She has new swelling in both of her feet and ankles today. - Patient Data Vitals - Most Recent: Last Vital Signs Temp 36.1 C 01/04/18 11:37 Pulse 77 01/04/18 11:37 Resp 16 01/04/18 11:37 BP 109/57 L 01/04/18 11:37 Pulse Ox 97 01/04/18 11:37 Weight - Most Recent: 48.3 kg I&O - Last 24 Hours: Intake & Output 01/03/18 01/04/18 01/04/18 22:59 06:59 14:59 Intake Total 2457 1630 960 Balance 2457 1630 960 Lab Results Last 24 Hours: Laboratory Results - last 24 hr 01/03/18 01/04/18 01/04/18 Range/Units 13:10 04:50 04:50 PT 37.9 H (9.5-12.0) sec INR 3.37 H (0.80-1.20) Sodium 143 (140-148) mmol/L Potassium 4.3 3.4 L (3.6-5.2) mmol/L Chloride 112 H (100-108) mmol/L Carbon Dioxide 21 (21-32) mmol/L Anion Gap 13.4 (5.0-14.0) mmol/L BUN 13 (7-18) mg/dL Creatinine 0.8 (0.6-1.0) mg/dL Est Cr Clr Drug Dosing 41.34 mL/min Estimated GFR (MDRD) > 60 (>60) Glucose 88 (74-106) mg/dL Calcium 7.7 L (8.5-10.1) mg/dL Med Orders - Current: Current Medications Acetaminophen (Tylenol) 650 mg PO Q4H PRN PRN Reason: Pain (Mild 1-3)/fever Last Admin: 01/04/18 11:33 Dose: 650 mg Albuterol (Proventil Neb Soln) 2.5 mg NEB Q4H PRN PRN Reason: Shortness Of Breath/wheezing Albuterol/Ipratropium (Duoneb 3.0-0.5 Mg/3 Ml) 3 ml NEB QIDRT [facility] Last Admin: 01/04/18 10:54 Dose: 3 ml Allopurinol (Zyloprim) 150 mg PO DAILY [facility] Last Admin: 01/04/18 09:10 Dose: 150 mg Budesonide (Pulmicort) 0.5 mg NEB BIDRT [facility] Last Admin: 01/04/18 07:01 Dose: 0.5 mg Carvedilol (Coreg) 3.125 mg PO BIDAC [facility] Last Admin: 01/04/18 09:11 Dose: 3.125 mg Docusate Sodium (Colace) 100 mg PO BID PRN PRN Reason: Constipation Guaifenesin/Codeine Phosphate (Robitussin Ac) 10 ml PO Q4H PRN PRN Reason: Cough Isosorbide Mononitrate (Imdur) 30 mg PO DAILY [facility] Last Admin: 01/04/18 09:10 Dose: 30 mg Levothyroxine Sodium (Levothyroxine) 75 mcg PO ACBREAKFAST [facility] Last Admin: 01/04/18 09:10 Dose: 75 mcg Nitroglycerin (Nitrostat) 0.4 mg SL Q5M PRN PRN Reason: Chest Pain Ondansetron HCl (Zofran Odt) 4 mg PO Q6H PRN PRN Reason: Nausea able to take PO Last Admin: 01/03/18 02:42 Dose: 4 mg Ondansetron HCl (Zofran) 4 mg IV Q4H PRN PRN Reason: Nausea/Vomiting Oxycodone HCl (Oxycodone) 5 mg PO Q4H PRN PRN Reason: Pain (moderate 4-6) Pantoprazole Sodium (Protonix) 40 mg PO ACBREAKFAST [facility] Last Admin: 01/04/18 09:09 Dose: 40 mg Potassium Chloride (Potassium Chloride) 10 meq PO DAILY@0800 [facility] Last Admin: 01/04/18 09:10 Dose: 10 meq Prednisone (Prednisone) 2.5 mg PO DAILY [facility] Last Admin: 01/04/18 09:11 Dose: 2.5 mg Theophylline (Pablito-24) 100 mg PO DAILY [facility] Last Admin: 01/04/18 09:11 Dose: 100 mg Theophylline (Theophylline Anhydrous) 300 mg PO DAILY [facility] Last Admin: 01/04/18 09:11 Dose: 300 mg Discontinued Medications Budesonide (Pulmicort) 0.5 mg NEB BID [facility] Last Admin: 01/02/18 22:23 Dose: 0.5 mg Furosemide (Lasix) 40 mg PO DAILY PRN PRN Reason: Edema Sodium Chloride (Normal Saline) 1,000 mls @ 500 mls/hr IV ASDIRECTED [facility] Last Admin: 01/02/18 19:14 Dose: 500 mls/hr Sodium Chloride (Normal Saline) 1,000 mls @ 100 mls/hr IV ASDIRECTED [facility] Last Admin: 01/04/18 05:45 Dose: 100 mls/hr Potassium Chloride 20 meq/ (Premix) 0 mls @ 50 mls/hr IV Q2H [facility] Stop: 01/03/18 07:31 Last Admin: 01/03/18 05:35 Dose: 50 mls/hr Potassium Chloride 20 meq/Lidocaine HCl 2 ml/ Sodium Chloride 112 mls @ 56 mls/ hr IV ONETIME ONE Stop: 01/03/18 09:59 Last Admin: 01/03/18 08:04 Dose: 56 mls/hr Lidocaine HCl (Xylocaine-Mpf 1%) 2 ml INJECT ONETIME ONE Stop: 01/03/18 05:26 Last Admin: 01/03/18 05:36 Dose: 2 ml Lorazepam (Ativan) 1 mg IV Q6H PRN PRN Reason: Nausea/Vomiting Morphine Sulfate (Morphine) 2 mg IVPUSH Q2H PRN PRN Reason: Pain (severe 7-10) Ondansetron HCl (Zofran) 4 mg IVPUSH ONETIME ONE Stop: 01/02/18 17:46 Last Admin: 01/02/18 19:16 Dose: 4 mg Ondansetron HCl (Zofran) 4 mg IVPUSH ONETIME ONE Stop: 01/02/18 20:57 Last Admin: 01/02/18 21:02 Dose: 4 mg Potassium Chloride (Klor-Con M20) 40 meq PO ONETIME ONE Stop: 01/04/18 09:01 Last Admin: 01/04/18 09:14 Dose: 40 meq Warfarin Sodium (Coumadin) 1.25 mg PO MoFr@1300 [facility] Warfarin Sodium (Coumadin) 2.5 mg PO SuTuWeThSa@1300 [facility] Warfarin Sodium (Coumadin) 1.25 mg PO ONETIME ONE Stop: 01/03/18 14:21 Last Admin: 01/03/18 14:07 Dose: 1.25 mg - Exam Quality Assessment: No: Supplemental Oxygen General: Alert, Oriented, Cooperative, No Acute Distress HEENT: Pupils Equal Lungs: Normal Respiratory Effort GI/Abdominal Exam: No Distention Extremities: Pedal Edema Skin: Warm, Dry Psy/Mental Status: Alert, Normal Affect - Problem List Review Problem List Initiated/Reviewed/Updated: Yes - My Orders Last 24 Hours: My Active Orders 01/04/18 11:48 ERMA Hose [Antiembolic Hose] [OM.PC] Routine 01/04/18 11:49 Convert IV to Saline Lock [OM.PC] Routine 01/04/18 Lunch Regular Diet [DIET] - Plan Plan:: ASSESSMENT / PLAN Abdominal Pain with nausea, vomiting and diarrhea - no vomiting but still some diarrhea though this is relatively mild. Appears better hydrated today. Pain is minimal but not resolved. -Saline lock IV -anti-nausea medications as needed -Advance to regular diet Hypokalemia - level has dropped again despite supplementation. -Supplement this morning and recheck in the morning Lower extremity edema - probably very mild excess volume with recent volume resuscitation. No respiratory compromise. With her low potassium I am hesitant to give her a diuretic. -ERMA stockings COPD - stable. -duonebs every 6 hrs -Pulimort neb every 12 hours -albuterol nebs prn -daily oral prednisone Chronic Afib - stable and rate controlled. INR slightly supratherapeutic. -Hold warfarin today -Restart warfarin tomorrow -daily INR/PT Maintenance issues -Nutrition: advance to regular today -DVT: Warfarin -GI Prophalaxis; Protonix 40mg po daily -consult Spiritual; daily prayers Disposition: I anticipate discharge to home tomorrow Holger Zambrano M.D.
[2018-01-04] MEDS ORDERED: Warfarin 2.5 MG Tab PO SCH (13:00)
[2018-01-05] MEDS: Budesonide 0.5 MG/2 ML Neb Susp NEB SCH (07:34)
[2018-01-05] MEDS: Albuterol/Ipratropium 3.0-0.5 MG/3 ML Neb Soln NEB SCH (07:34)
[2018-01-05 07:39] VITALS: BP 131/63
[2018-01-05] MEDS: Levothyroxine 75 MCG Tab PO SCH (08:05)
[2018-01-05] MEDS: Carvedilol 3.125 MG Tab PO SCH (08:05)
[2018-01-05] MEDS: Pantoprazole 40 MG Tab.CR PO SCH (08:05)
[2018-01-05] MEDS: Theophylline 100 MG Cap.ER PO SCH (08:33)
[2018-01-05] MEDS: predniSONE 5 MG Tab PO SCH (08:33)
[2018-01-05] MEDS: Allopurinol 300 MG Tab PO SCH (08:33)
[2018-01-05] MEDS: Potassium Chloride 10 MEQ Cap.ER PO SCH (08:33)
[2018-01-05] MEDS: Theophylline 300 MG Tab.ER PO SCH (08:33)
[2018-01-05] MEDS: Isosorbide Mononitrate 30 MG Tab.ER PO SCH (08:33)
--- NOTE | 2018-01-05 10:06 | PCM.DCSUM1 ---
Discharge Summary - Hospital Course Brief History: 82-year-old female with history of paroxysmal atrial fibrillation on chronic anticoagulation and recent admission for respiratory infection who presented with nausea, vomiting, diarrhea and abdominal pain and was admitted for further workup and management. - Discharge Data Discharge Date: 01/05/18 Discharge Disposition: Home, Self-Care 01 Condition: Good - Discharge Diagnosis/Problem(s) (1) Diarrhea SNOMED Code(s): 36786843 ICD Code: R19.7 - DIARRHEA, UNSPECIFIED Status: Acute Qualifiers: Diarrhea type: presumed infectious Qualified Code(s): R19.7 - Diarrhea, unspecified (2) Vomiting SNOMED Code(s): 530777233 ICD Code: R11.10 - VOMITING, UNSPECIFIED Status: Acute Priority: High (3) Abdominal pain SNOMED Code(s): 12026343 ICD Code: R10.9 - UNSPECIFIED ABDOMINAL PAIN Status: Acute Priority: High (4) Hypokalemia SNOMED Code(s): 17437872 ICD Code: E87.6 - HYPOKALEMIA Status: Acute Priority: Medium (5) Paroxysmal atrial fibrillation SNOMED Code(s): 910524967 ICD Code: I48.0 - PAROXYSMAL ATRIAL FIBRILLATION Status: Chronic Priority : Medium - Patient Summary/Data Consults: Consultations 01/02/18 21:52 Consult to Spiritual Care [CONS] Routine Hospital Course: [place] presented with abdominal pain, nausea vomiting and diarrhea. Workup in the emergency room was most remarkable for hypokalemia. There is no strong evidence to suggest a causative agent for the diarrhea, vomiting or abdominal pain. CT scan of the abdomen did not show acute pathology. Clostridium difficile testing was negative. She was managed with antinausea medications, IV fluids as well as pain control for the mild abdominal pain. We supplemented her potassium in the emergency room and overnight following admission. The next morning despite the supplementation her potassium level has dropped. Symptomatically she has improved but has some lingering abdominal pain. Vomiting had resolved and diarrhea had improved but not resolved. Over the next couple of days she showed additional improvement in the abdominal pain with near resolution. She has not had any vomiting. Diarrhea seems to be slowly improving but has not resolved. She has tolerated regular diet. Her potassium level has normalized. Her INR was noted to be mildly elevated during the early part of the hospital stay and responded well to decreased doses and holding one dose. Her INR on the day of discharge is down to 2.5. Not quite sure why she had the difficulty with nausea and vomiting. There is no evidence for infection. She has not had any fevers. Symptoms have resolved with only conservative management. She seems to be doing well at this point and I believe is safe for discharge home. She has follow-up scheduled next week. - Patient Instructions Diet: Regular Diet as Tolerated Activity: As Tolerated Showering/Bathing: May Shower Notify Provider of: Fever, Increased Pain, Nausea and/or Vomiting Other/Special Instructions: 1. You were in the hospital for management of dehydration in the setting of abdominal pain with nausea, vomiting and diarrhea. The exact cause for your symptoms was not entirely clear but seems to be getting better with hydration. Infectious workup for the diarrhea was unremarkable. I would recommend soft and bland foods for the next few days as your gastrointestinal tract recovers from this illness. 2. your potassium level was low during the hospital stay but has improved with supplementation. The low level was likely a result of vomiting and diarrhea and should remain normal as long as she do not have recurrence of vomiting or severe diarrhea. 3. Continue your usual warfarin dosing after hospital discharge. Your INR on the day of discharge is 2.5. 4. Seek medical attention if you develop fever greater than 101, have severe abdominal pain, persistent vomiting or severe diarrhea that leads to dehydration. - Discharge Plan Home Medications: Home Meds Albuterol [Ventolin HFA] 2 puff INH Q4H PRN 03/13/14 [History] Allopurinol [Zyloprim] 150 mg PO DAILY 03/13/14 [History] Aspirin [Adult Low Dose Aspirin EC] 81 mg PO DAILY 03/13/14 [History] Budesonide [Pulmicort] 2 ml NEB BID 03/13/14 [History] Furosemide [Lasix] 40 mg PO DAILY PRN 03/13/14 [History] Ipratropium/Albuterol Sulfate [Duoneb 0.5 mg-3 mg/3 ml Soln] 3 ml NEB Q4HR PRN 03/13/14 [History] Isosorbide Mononitrate [Imdur] 30 mg PO DAILY 03/13/14 [History] Levothyroxine 75 mcg PO DAILY 03/13/14 [History] Potassium Chloride 10 meq PO DAILY 03/13/14 [History] Pravastatin [Pravachol] 40 mg PO BEDTIME 03/13/14 [History] Theophylline [Theophylline Anhydrous] 400 mg PO DAILY 03/13/14 [History] predniSONE [Prednisone] 2.5 mg PO DAILY 03/13/14 [History] Nitroglycerin [Nitrostat] 0.4 mg SL Q5M PRN 04/10/16 [History] Carvedilol 3.125 mg PO BIDAC 12/19/17 [History] Pantoprazole [ProTONIX] 40 mg PO DAILY 12/19/17 [History] Warfarin [Coumadin] 1.25 mg PO ASDIRECTED 12/19/17 [History] Warfarin [Coumadin] 2.5 mg PO DAILY 12/19/17 [History] Codeine/guaiFENesin [Robitussin AC] 10 ml PO Q4H PRN #8 oz 12/25/17 [Rx] Patient Handouts: Food Choices to Help Relieve Diarrhea, Adult, Diarrhea, Adult , [id number] Referrals: Uli Christianson MD [Primary Care Provider] - (follow-up as scheduled in January or sooner if symptoms worsen or do not continue to get better) - Discharge Summary/Plan Comment DC Time >30 min.: No (25) - Patient Data Vitals - Most Recent: Last Vital Signs Temp 35.7 C 01/05/18 07:39 Pulse 72 01/05/18 08:05 Resp 18 01/05/18 07:39 BP 131/63 01/05/18 08:33 Pulse Ox 98 01/05/18 07:39 Weight - Most Recent: 48.3 kg I&O - Last 24 hours: Intake & Output 01/04/18 01/05/18 01/05/18 22:59 06:59 14:59 Intake Total 480 840 Balance 480 840 Lab Results - Last 24 hrs: Laboratory Results - last 24 hr 01/05/18 01/05/18 Range/Units 07:03 07:03 PT 27.4 H (9.5-12.0) sec INR 2.47 H (0.80-1.20) Sodium 142 (140-148) mmol/L Potassium 3.9 (3.6-5.2) mmol/L Chloride 111 H (100-108) mmol/L Carbon Dioxide 22 (21-32) mmol/L Anion Gap 12.9 (5.0-14.0) mmol/L BUN 9 (7-18) mg/dL Creatinine 0.8 (0.6-1.0) mg/dL Est Cr Clr Drug Dosing 41.34 mL/min Estimated GFR (MDRD) > 60 (>60) Glucose 87 (74-106) mg/dL Calcium 8.0 L (8.5-10.1) mg/dL Med Orders - Current: Current Medications Acetaminophen (Tylenol) 650 mg PO Q4H PRN PRN Reason: Pain (Mild 1-3)/fever Last Admin: 01/04/18 21:38 Dose: 650 mg Albuterol (Proventil Neb Soln) 2.5 mg NEB Q4H PRN PRN Reason: Shortness Of Breath/wheezing Albuterol/Ipratropium (Duoneb 3.0-0.5 Mg/3 Ml) 3 ml NEB QIDRT [facility] Last Admin: 01/05/18 07:34 Dose: Not Given Allopurinol (Zyloprim) 150 mg PO DAILY [facility] Last Admin: 01/05/18 08:33 Dose: 150 mg Budesonide (Pulmicort) 0.5 mg NEB BIDRT [facility] Last Admin: 01/05/18 07:34 Dose: Not Given Carvedilol (Coreg) 3.125 mg PO BIDAC [facility] Last Admin: 01/05/18 08:05 Dose: 3.125 mg Docusate Sodium (Colace) 100 mg PO BID PRN PRN Reason: Constipation Guaifenesin/Codeine Phosphate (Robitussin Ac) 10 ml PO Q4H PRN PRN Reason: Cough Isosorbide Mononitrate (Imdur) 30 mg PO DAILY [facility] Last Admin: 01/05/18 08:33 Dose: 30 mg Levothyroxine Sodium (Levothyroxine) 75 mcg PO ACBREAKFAST [facility] Last Admin: 01/05/18 08:05 Dose: 75 mcg Nitroglycerin (Nitrostat) 0.4 mg SL Q5M PRN PRN Reason: Chest Pain Ondansetron HCl (Zofran Odt) 4 mg PO Q6H PRN PRN Reason: Nausea able to take PO Last Admin: 01/03/18 02:42 Dose: 4 mg Ondansetron HCl (Zofran) 4 mg IV Q4H PRN PRN Reason: Nausea/Vomiting Oxycodone HCl (Oxycodone) 5 mg PO Q4H PRN PRN Reason: Pain (moderate 4-6) Pantoprazole Sodium (Protonix) 40 mg PO ACBREAKFAST [facility] Last Admin: 01/05/18 08:05 Dose: 40 mg Potassium Chloride (Potassium Chloride) 10 meq PO DAILY@0800 [facility] Last Admin: 01/05/18 08:33 Dose: 10 meq Prednisone (Prednisone) 2.5 mg PO DAILY [facility] Last Admin: 01/05/18 08:33 Dose: 2.5 mg Theophylline (Pablito-24) 100 mg PO DAILY [facility] Last Admin: 01/05/18 08:33 Dose: 100 mg Theophylline (Theophylline Anhydrous) 300 mg PO DAILY [facility] Last Admin: 01/05/18 08:33 Dose: 300 mg Discontinued Medications Budesonide (Pulmicort) 0.5 mg NEB BID [facility] Last Admin: 01/02/18 22:23 Dose: 0.5 mg Furosemide (Lasix) 40 mg PO DAILY PRN PRN Reason: Edema Sodium Chloride (Normal Saline) 1,000 mls @ 500 mls/hr IV ASDIRECTED [facility] Last Admin: 01/02/18 19:14 Dose: 500 mls/hr Sodium Chloride (Normal Saline) 1,000 mls @ 100 mls/hr IV ASDIRECTED [facility] Last Admin: 01/04/18 05:45 Dose: 100 mls/hr Potassium Chloride 20 meq/ (Premix) 0 mls @ 50 mls/hr IV Q2H [facility] Stop: 01/03/18 07:31 Last Admin: 01/03/18 05:35 Dose: 50 mls/hr Potassium Chloride 20 meq/Lidocaine HCl 2 ml/ Sodium Chloride 112 mls @ 56 mls/ hr IV ONETIME ONE Stop: 01/03/18 09:59 Last Admin: 01/03/18 08:04 Dose: 56 mls/hr Lidocaine HCl (Xylocaine-Mpf 1%) 2 ml INJECT ONETIME ONE Stop: 01/03/18 05:26 Last Admin: 01/03/18 05:36 Dose: 2 ml Lorazepam (Ativan) 1 mg IV Q6H PRN PRN Reason: Nausea/Vomiting Morphine Sulfate (Morphine) 2 mg IVPUSH Q2H PRN PRN Reason: Pain (severe 7-10) Ondansetron HCl (Zofran) 4 mg IVPUSH ONETIME ONE Stop: 01/02/18 17:46 Last Admin: 01/02/18 19:16 Dose: 4 mg Ondansetron HCl (Zofran) 4 mg IVPUSH ONETIME ONE Stop: 01/02/18 20:57 Last Admin: 01/02/18 21:02 Dose: 4 mg Potassium Chloride (Klor-Con M20) 40 meq PO ONETIME ONE Stop: 01/04/18 09:01 Last Admin: 01/04/18 09:14 Dose: 40 meq Warfarin Sodium (Coumadin) 1.25 mg PO MoFr@1300 [facility] Warfarin Sodium (Coumadin) 2.5 mg PO SuTuWeThSa@1300 [facility] Warfarin Sodium (Coumadin) 1.25 mg PO ONETIME ONE Stop: 01/03/18 14:21 Last Admin: 01/03/18 14:07 Dose: 1.25 mg - Exam Quality Assessment: Denies: Supplemental Oxygen General: Reports: Alert, Oriented, Cooperative, No Acute Distress Neck: Reports: Supple Cardiovascular: Reports: Regular Rate, Regular Rhythm GI/Abdominal Exam: No Distention Extremities: Pedal Edema Psy/Mental Status: Reports: Alert, Normal Affect *Q Meaningful Use (DIS) - VTE *Q VTE Criteria *Q: - Stroke *Q Stroke Criteria *Q: - AMI *Q AMI Criteria *Q:
== END 2018-01-05 11:15 | disposition home or self-care (01) | DRG 641 ==
LOC: JP.ED 16:38 → JP.ICU 21:04 → JP.2SS 01-03 17:38
PROVIDERS: ADMIT Internal Medicine; ATTEND Internal Medicine
DX: E87.6 Hypokalemia (principal); E86.0 Dehydration; I48.0 Paroxysmal atrial fibrillation; J44.9 Chronic obstructive pulmonary disease, unspecified; E03.9 Hypothyroidism, unspecified; Z66 Do not resuscitate; Z87.891 Personal history of nicotine dependence; R60.9 Edema, unspecified; Z86.73 Personal history of transient ischemic attack (TIA), and cerebral infarction without residual deficits; K21.9 Gastro-esophageal reflux disease without esophagitis; Z87.01 Personal history of pneumonia (recurrent); H91.90 Unspecified hearing loss, unspecified ear; H54.7 Unspecified visual loss; Z88.1 Allergy status to other antibiotic agents; Z79.82 Long term (current) use of aspirin; Z79.01 Long term (current) use of anticoagulants; Z79.52 Long term (current) use of systemic steroids; Z79.899 Other long term (current) drug therapy; Z51.81 Encounter for therapeutic drug level monitoring; R10.9 Unspecified abdominal pain; R11.2 Nausea with vomiting, unspecified; R19.7 Diarrhea, unspecified
CPT/HCPCS: 36415; 74019 ×2; 74176; 80053; 82150; 83690; 85025; 85610; 87493; 89055; 96361; 96374; 96376; 99285; J2405 ×2; J7040; 80048; 83735; 84132; 94640; 99284; A9270-GY; J3480; J7030; J7620

== ENCOUNTER 2018-01-19 18:55 | Inpatient (IN) | payer MEDICARE, BC ==
[2018-01-19] MEDS ORDERED: Ondansetron 4 MG/2 ML SDV IVPUSH ONE (20:04)
--- NOTE | 2018-01-19 20:14 | EDM.PDOC ---
ED HPI GENERAL MEDICAL PROBLEM - General Chief Complaint: Gastrointestinal Problem Stated Complaint: ILLNESS Time Seen by Provider: 01/19/18 19:55 Source of Information: Reports: Patient, Family History Limitations: Reports: No Limitations - History of Present Illness INITIAL COMMENTS - FREE TEXT/NARRATIVE: 82-year-old female who is having persistent problems with diarrhea, nausea, vomiting, abdominal discomfort and generalized malaise. She was hospitalized for 4 days within the last 2 weeks, hydrated and treated for symptoms. There was some improvement so she went home but within 24 hours she was sick as when she left. She continues to have persistent diarrhea, gets nauseated with abdominal cramps every time she eats and feels she is getting weaker. Her family has to stay with her to make sure she can get around the house. Every time she eats it "goes right through her". She has not seen any blood, the stool continues to be predominantly mucus. She's having fairly significant abdominal cramps and pain. Onset: Unknown/Unsure Duration: Week(s): (Symptoms have been ongoing for weeks, some waxing and waning ) Location: Reports: Abdomen Severity: Moderate Worsens with: Reports: Eating Associated Symptoms: Reports: Fever/Chills, Loss of Appetite, Malaise, Nausea/ Vomiting, Weakness. Denies: Chest Pain, Headaches, Shortness of Breath abd Pain Score (Numeric/FACES): 3 - Related Data Allergies Allergy/AdvReac Type Severity Reaction Status Date / Time amoxicillin [Amoxicillin] Allergy Cannot Verified 01/19/18 22:21 Remember levofloxacin [From Levaquin] Allergy Other Verified 01/19/18 22:21 Home Meds: Home Meds Albuterol [Ventolin HFA] 2 puff INH Q4H PRN 03/13/14 [History] Allopurinol [Zyloprim] 150 mg PO DAILY 03/13/14 [History] Aspirin [Adult Low Dose Aspirin EC] 81 mg PO DAILY 03/13/14 [History] Budesonide [Pulmicort] 2 ml NEB BID 03/13/14 [History] Furosemide [Lasix] 40 mg PO DAILY PRN 03/13/14 [History] Ipratropium/Albuterol Sulfate [Duoneb 0.5 mg-3 mg/3 ml Soln] 3 ml NEB Q4HR PRN 03/13/14 [History] Isosorbide Mononitrate [Imdur] 30 mg PO DAILY 03/13/14 [History] Levothyroxine 75 mcg PO DAILY 03/13/14 [History] Potassium Chloride 10 meq PO DAILY 03/13/14 [History] Pravastatin [Pravachol] 40 mg PO BEDTIME 03/13/14 [History] Theophylline [Theophylline Anhydrous] 400 mg PO DAILY 03/13/14 [History] predniSONE [Prednisone] 2.5 mg PO DAILY 03/13/14 [History] Nitroglycerin [Nitrostat] 0.4 mg SL Q5M PRN 04/10/16 [History] Carvedilol 3.125 mg PO BIDAC 12/19/17 [History] Pantoprazole [ProTONIX] 40 mg PO DAILY 12/19/17 [History] Warfarin [Coumadin] 1.25 mg PO ASDIRECTED 12/19/17 [History] Warfarin [Coumadin] 2.5 mg PO DAILY 12/19/17 [History] Codeine/guaiFENesin [Robitussin AC] 10 ml PO Q4H PRN #8 oz 12/25/17 [Rx] Past Medical History HEENT History: Reports: Hard of Hearing, Impaired Vision Cardiovascular History: Reports: Afib, Angina, High Cholesterol, Pacemaker Respiratory History: Reports: Bronchitis, Recurrent, COPD, Pneumonia, Recurrent Gastrointestinal History: Reports: Chronic Diarrhea, Colon Polyp, GERD 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: Musculoskeletal History: Reports: Other (See Below) Other Musculoskeletal History: bilateral shoulder pain Neurological History: Reports: TIA Endocrine/Metabolic History: Reports: Hypothyroidism - Infectious Disease History Infectious Disease History: Reports: Chicken Pox - Past Surgical History HEENT Surgical History: Reports: None Cardiovascular Surgical History: Reports: Pacer Respiratory Surgical History: Reports: None GI Surgical History: Reports: Appendectomy, Cholecystectomy, Colonoscopy Female Surgical History: Reports: Hysterectomy, Oophorectomy, Salpingo- Oophorectomy Musculoskeletal Surgical History: Reports: Other (See Below) Other Musculoskeletal Surgeries/Procedures:: bryson in left leg, left elbow wires, right wrist plate Social & Family History - Family History Family Medical History: Noncontributory Respiratory: Reports: COPD - Tobacco Use Smoking Status *Q: Never Smoker Used Tobacco, but Quit: Yes Month/Year Tobacco Last Used: 1954 Second Hand Smoke Exposure: No - Caffeine Use Caffeine Use: Reports: Coffee - Alcohol Use Days Per Week of Alcohol Use: 0 - Recreational Drug Use Recreational Drug Use: No ED ROS GENERAL - Review of Systems Review Of Systems: See Below Constitutional: Reports: Fever, Chills, Malaise, Weakness HEENT: Reports: No Symptoms Respiratory: Denies: Shortness of Breath Cardiovascular: Denies: Chest Pain GI/Abdominal: Reports: Abdominal Pain, Diarrhea, Nausea, Vomiting : Reports: No Symptoms Skin: Reports: No Symptoms Neurological: Reports: Dizziness. Denies: Headache Psychiatric: Reports: No Symptoms ED EXAM, GI/ABD - Physical Exam Exam: See Below Exam Limited By: No Limitations General Appearance: Alert, No Apparent Distress (Patient is not distress but looks uncomfortable) Eyes: Bilateral: Normal Appearance (Normal hydration, no jaundice) Head: Atraumatic Respiratory/Chest: No Respiratory Distress, Lungs Clear Cardiovascular: Tachycardia GI/Abdominal Exam: Normal Bowel Sounds, Soft, Tender (She reacts with tenderness to palpation diffusely over the entire abdomen, no focal area of tenderness) Neurological: Alert, Oriented Psychiatric: Normal Affect, Normal Mood Skin Exam: Warm, Dry Course - Vital Signs Last Recorded V/S: Last Vital Signs Temp 98.2 F 01/19/18 22:10 Pulse 102 H 01/19/18 22:10 Resp 18 01/19/18 22:10 BP 125/66 01/19/18 22:10 Pulse Ox 95 01/19/18 22:10 - Orders/Labs/Meds Orders: Active Orders 24 hr Category Date Time Status Abdomen Pelvis w Cont [CT] Routine Exams 01/19/18 21:03 Taken CULTURE STOOL + SHIGATOX [RM] Stat Lab 01/19/18 20:03 Ordered OVA AND PARASITES [MREF] Stat Lab 01/19/18 20:03 Ordered Medication Orders Acetaminophen (Tylenol) 650 mg PO Q4H PRN PRN Reason: Pain (Mild 1-3)/fever Albuterol (Proventil Neb Soln) 2.5 mg NEB Q4H PRN PRN Reason: Shortness Of Breath/wheezing Albuterol/Ipratropium (Duoneb 3.0-0.5 Mg/3 Ml) 3 ml NEB QIDRT [facility]GEL[facility] Allopurinol (Zyloprim) 150 mg PO DAILY [facility] Aspirin (Halfprin) 81 mg PO DAILY [facility] Budesonide (Pulmicort) 0.5 mg NEB BIDRT [facility] Carvedilol (Coreg) 3.125 mg PO BIDAC [facility] Hydromorphone HCl (Dilaudid) 0.5 mg IVPUSH Q2H PRN PRN Reason: Pain Sodium Chloride (Normal Saline) 100 mls @ 3 mls/sec IV ASDIRECTED [facility] Last Admin: 01/19/18 21:27 Dose: 3 mls/sec Potassium Chloride 20 meq/Lidocaine HCl 2 ml/ Sodium Chloride 112 mls @ 50 mls/ hr IV Q2H [facility] Stop: 01/20/18 04:16 Last Admin: 01/19/18 23:30 Dose: 50 mls/hr Promethazine HCl 12.5 mg/ (Sodium Chloride) 50.5 mls @ 200 mls/hr IV Q6H PRN PRN Reason: Nausea/Vomiting Sodium Chloride (Normal Saline) 1,000 mls @ 125 mls/hr IV ASDIRECTED [facility] Ceftriaxone Sodium 1 gm/ (Sodium Chloride) 50 mls @ 100 mls/hr IV Q24H [facility] Metronidazole 500 mg/ Premix 100 mls @ 100 mls/hr IV Q8H [facility] Last Admin: 01/20/18 00:34 Dose: 100 mls/hr Iopamidol (Isovue-300 (61%)) 100 ml IV . DIRECTED [facility] Last Admin: 01/19/18 21:27 Dose: 72 ml Isosorbide Mononitrate (Imdur) 30 mg PO DAILY [facility] Levothyroxine Sodium (Levothyroxine) 75 mcg PO DAILY [facility] Lorazepam (Ativan) 0.5 - 1 mg IVPUSH Q4H PRN PRN Reason: Nausea/Vomiting Ondansetron HCl (Zofran Odt) 4 mg PO Q6H PRN PRN Reason: Nausea able to take PO Ondansetron HCl (Zofran) 4 mg IV Q6H PRN PRN Reason: Nausea/Vomiting Pantoprazole Sodium (Protonix) 40 mg PO ACBREAKFAST [facility] Pravastatin Sodium (Pravachol) 40 mg PO BEDTIME [facility] Prednisone (Prednisone) 10 mg PO DAILY [facility] Prochlorperazine Maleate (Compazine) 10 mg PO Q6H PRN PRN Reason: Nausea/Vomiting Theophylline (Theophylline Anhydrous) 300 mg PO DAILY [facility] Theophylline (Pablito-24) 100 mg PO DAILY [facility] Labs: Laboratory Tests 01/19/18 01/19/18 01/19/18 Range/Units 20:12 20:12 20:54 WBC 11.5 H (4.5-11.0) K/uL RBC 4.16 (3.30-5.50) M/uL Hgb 13.3 (12.0-15.0) g/dL Hct 39.4 (36.0-48.0) % MCV 95 (80-98) fL MCH 32 H (27-31) pg MCHC 34 (32-36) % Plt Count 290 (150-400) K/uL Neut % (Auto) 80 H (36-66) % Lymph % (Auto) 10 L (24-44) % [place] % (Auto) 9 H (2-6) % Eos % (Auto) 1 L (2-4) % Baso % (Auto) 0 (0-1) % Sodium 137 L (140-148) mmol/L Potassium 2.3 L* (3.6-5.2) mmol/L Chloride 100 (100-108) mmol/L Carbon Dioxide 25 (21-32) mmol/L Anion Gap 14.3 H (5.0-14.0) mmol/L BUN 15 D (7-18) mg/dL Creatinine 1.0 (0.6-1.0) mg/dL Est Cr Clr Drug Dosing 32.61 mL/min Estimated GFR (MDRD) 53 L (>60) Glucose 107 H (74-106) mg/dL Calcium 9.5 D (8.5-10.1) mg/dL Total Bilirubin 0.5 (0.2-1.0) mg/dL AST 22 (15-37) U/L ALT 14 (12-78) U/L Alkaline Phosphatase 133 H (46-116) U/L Total Protein 6.8 (6.4-8.2) g/dL Albumin 2.7 L (3.4-5.0) g/dL Globulin 4.1 H (2.3-3.5) g/dL Albumin/Globulin Ratio 0.7 L (1.2-2.2) Lipase 69 L (73-393) U/L Meds: Medications Generic Name Dose Route Start Last Admin Trade Name Freq PRN Reason Stop Dose Admin Acetaminophen 650 mg 01/19/18 22:17 Tylenol PO Q4H PRN Pain (Mild 1-3)/fever Albuterol 2.5 mg 01/19/18 22:17 Proventil Neb Soln NEB Q4H PRN Shortness Of Breath/wheezing Albuterol/Ipratropium 3 ml 01/20/18 07:00 Duoneb 3.0-0.5 Mg/3 Ml NEB QIDRT [facility] Allopurinol 150 mg 01/20/18 09:00 Zyloprim PO DAILY [facility] Aspirin 81 mg 01/20/18 09:00 Halfprin PO DAILY [facility] Budesonide 0.5 mg 01/20/18 07:00 Pulmicort NEB BIDRT [facility] Carvedilol 3.125 mg 01/20/18 07:30 Coreg PO BIDAC [facility] Hydromorphone HCl 0.5 mg 01/19/18 22:17 Dilaudid IVPUSH Q2H PRN Pain Sodium Chloride 100 mls @ 3 mls/sec 01/19/18 21:15 01/19/18 21:27 Normal Saline IV 3 mls/sec ASDIRECTED ANGELA Administration Potassium Chloride 20 meq/ 112 mls @ 50 mls/hr 01/19/18 22:17 01/19/18 23:30 Lidocaine HCl 2 ml/ Sodium IV 01/20/18 04:16 50 mls/hr Chloride Q2H ANGELA Administration Promethazine HCl 12.5 mg/ 50.5 mls @ 200 mls/hr 01/19/18 22:17 Sodium Chloride IV Q6H PRN Nausea/Vomiting Sodium Chloride 1,000 mls @ 125 mls/hr 01/19/18 22:17 Normal Saline IV ASDIRECTED [facility] Ceftriaxone Sodium 1 gm/ 50 mls @ 100 mls/hr 01/20/18 01:00 Sodium Chloride IV Q24H [facility] Metronidazole 500 mg/ Premix 100 mls @ 100 mls/hr 01/20/18 00:00 01/20/18 00: 34 IV 100 mls/hr Q8H [facility] Administration Iopamidol 100 ml 01/19/18 21:15 01/19/18 21:27 Isovue-300 (61%) IV 72 ml . DIRECTED ANGELA Administration Isosorbide Mononitrate 30 mg 01/20/18 09:00 Imdur PO DAILY [facility] Levothyroxine Sodium 75 mcg 01/20/18 09:00 Levothyroxine PO DAILY [facility] Lorazepam 0.5 - 1 mg 01/19/18 22:17 Ativan IVPUSH Q4H PRN Nausea/Vomiting Ondansetron HCl 4 mg 01/19/18 22:17 Zofran Odt PO Q6H PRN Nausea able to take PO Ondansetron HCl 4 mg 01/19/18 22:17 Zofran IV Q6H PRN Nausea/Vomiting Pantoprazole Sodium 40 mg 01/20/18 07:30 Protonix PO ACBREAKFAST [facility] Pravastatin Sodium 40 mg 01/20/18 21:00 Pravachol PO BEDTIME [facility] Prednisone 10 mg 01/20/18 09:00 Prednisone PO DAILY [facility] Prochlorperazine Maleate 10 mg 01/19/18 22:17 Compazine PO Q6H PRN Nausea/Vomiting Theophylline 300 mg 01/20/18 09:00 Theophylline Anhydrous PO DAILY [facility] Theophylline 100 mg 01/20/18 09:00 Pablito-24 PO DAILY [facility] Discontinued Medications Generic Name Dose Route Start Last Admin Trade Name Freq PRN Reason Stop Dose Admin Sodium Chloride 1,000 mls @ 250 mls/hr 01/19/18 20:15 01/19/18 20:12 Normal Saline IV 250 mls/hr ASDIRECTED [facility] Administration Potassium Chloride Confirm 01/19/18 23:19 01/19/18 23:30 Kcl 20 Meq In Water 100 Ml Administered 01/19/18 23:20 Not Given Dose 300 mls @ as directed .ROUTE .STK-MED ONE Lidocaine HCl Confirm 01/19/18 23:20 01/19/18 23:30 Xylocaine-Mpf 1% Administered 01/19/18 23:21 Not Given Dose 10 ml .ROUTE .STK-MED ONE Ondansetron HCl 4 mg 01/19/18 20:04 01/19/18 20:11 Zofran IVPUSH 01/19/18 20:05 4 mg ONETIME ONE Administration - Re-Assessments/Exams Free Text/Narrative Re-Assessment/Exam: 01/19/18 20:37 An IV was reestablished, 250 mL of normal saline an hour was started and she was given 4 mg of IV Zofran. A very mucousy stool was collected, this was sent for O&P, culture, and lab came to draw CBC and CMP. 01/20/18 00:48 White count was 11.5, potassium was only 2.3. Her pain was persistent, so I asked Dr. Zambrano of the hospitalist service to evaluate the patient for admission and further evaluation. Departure - Departure Time of Disposition: 21:46 Disposition: Admitted As Inpatient 66 Condition: Fair Clinical Impression: Abdominal pain, Hypokalemia - Discharge Information - My Orders Last 24 Hours: My Active Orders 01/19/18 20:03 CULTURE STOOL + SHIGATOX [RM] Stat OVA AND PARASITES [MREF] Stat - Assessment/Plan Last 24 Hours: My Active Orders 01/19/18 20:03 CULTURE STOOL + SHIGATOX [RM] Stat OVA AND PARASITES [MREF] Stat
[2018-01-19] MEDS ORDERED: Sodium Chloride 0.9% 1,000 ML IV SCH (20:15)
[2018-01-19] MEDS ORDERED: Iopamidol 612 MG/ML 100 ML Bottle IV SCH (21:15)
[2018-01-19] MEDS ORDERED: Sodium Chloride 0.9% 100 ML IV SCH (21:15)
--- NOTE | 2018-01-19 21:21 | PCM.HP ---
H&P History of Present Illness - General Date of Service: 01/19/18 Admit Problem/Dx: Admission Diagnosis/Problem Admission Diagnosis/Problem Abdominal pain Source of Information: Patient, Family, Provider History Limitations: Reports: No Limitations - History of Present Illness Initial Comments - Free Text/Narative: Fantasma presents to the emergency room today with persistent generalized abdominal pain, nausea and diarrhea. Symptoms have not really improved much and have actually gotten worse since her last hospital stay. She has nausea present much of the day but has not done much in the way of vomiting. She has not been able to eat any food because of her nausea. She is able to keep fluids down but has no appetite to try to eat or drink anything. She has several episodes of diarrhea per day described as a mucus-like stool. She also has some soft stools. She doesn't think she's had any fevers at home. She describes her abdominal pain as moderate to moderately severe generalized achy abdominal pain. It does not radiate. Worse with any sort of pressure and trying to eat or better when she doesn't eat. No complaints of shortness of breath but she does have a mild cough. No change in bladder habits. Workup in the emergency room revealed significant hypokalemia with a potassium of 2.3. She will need hydration with her diarrhea and anorexia and further workup for her persistent abdominal pain and diarrhea. abd Pain Score (Numeric/FACES): 3 - Related Data Allergies/Adverse Reactions: Allergies Allergy/AdvReac Type Severity Reaction Status Date / Time amoxicillin [Amoxicillin] Allergy Cannot Verified 01/19/18 19:28 Remember levofloxacin [From Levaquin] Allergy Other Verified 01/19/18 19:28 Home Medications: Home Meds Albuterol [Ventolin HFA] 2 puff INH Q4H PRN 03/13/14 [History] Allopurinol [Zyloprim] 150 mg PO DAILY 03/13/14 [History] Aspirin [Adult Low Dose Aspirin EC] 81 mg PO DAILY 03/13/14 [History] Budesonide [Pulmicort] 2 ml NEB BID 03/13/14 [History] Furosemide [Lasix] 40 mg PO DAILY PRN 03/13/14 [History] Ipratropium/Albuterol Sulfate [Duoneb 0.5 mg-3 mg/3 ml Soln] 3 ml NEB Q4HR PRN 03/13/14 [History] Isosorbide Mononitrate [Imdur] 30 mg PO DAILY 03/13/14 [History] Levothyroxine 75 mcg PO DAILY 03/13/14 [History] Potassium Chloride 10 meq PO DAILY 03/13/14 [History] Pravastatin [Pravachol] 40 mg PO BEDTIME 03/13/14 [History] Theophylline [Theophylline Anhydrous] 400 mg PO DAILY 03/13/14 [History] predniSONE [Prednisone] 2.5 mg PO DAILY 03/13/14 [History] Nitroglycerin [Nitrostat] 0.4 mg SL Q5M PRN 04/10/16 [History] Carvedilol 3.125 mg PO BIDAC 12/19/17 [History] Pantoprazole [ProTONIX] 40 mg PO DAILY 12/19/17 [History] Warfarin [Coumadin] 1.25 mg PO ASDIRECTED 12/19/17 [History] Warfarin [Coumadin] 2.5 mg PO DAILY 12/19/17 [History] Codeine/guaiFENesin [Robitussin AC] 10 ml PO Q4H PRN #8 oz 12/25/17 [Rx] Past Medical History HEENT History: Reports: Hard of Hearing, Impaired Vision Cardiovascular History: Reports: Afib, Angina, High Cholesterol, Pacemaker Respiratory History: Reports: Bronchitis, Recurrent, COPD, Pneumonia, Recurrent Gastrointestinal History: Reports: Chronic Diarrhea, Colon Polyp, GERD 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: Musculoskeletal History: Reports: Other (See Below) Other Musculoskeletal History: bilateral shoulder pain Neurological History: Reports: TIA Endocrine/Metabolic History: Reports: Hypothyroidism - Infectious Disease History Infectious Disease History: Reports: Chicken Pox - Past Surgical History HEENT Surgical History: Reports: None Cardiovascular Surgical History: Reports: Pacer Respiratory Surgical History: Reports: None GI Surgical History: Reports: Appendectomy, Cholecystectomy, Colonoscopy Female Surgical History: Reports: Hysterectomy, Oophorectomy, Salpingo- Oophorectomy Musculoskeletal Surgical History: Reports: Other (See Below) Other Musculoskeletal Surgeries/Procedures:: bryson in left leg, left elbow wires, right wrist plate Social & Family History - Family History Family Medical History: Noncontributory Respiratory: Reports: COPD - Tobacco Use Smoking Status *Q: Never Smoker Used Tobacco, but Quit: Yes Month/Year Tobacco Last Used: 1954 Second Hand Smoke Exposure: No - Caffeine Use Caffeine Use: Reports: Coffee - Alcohol Use Days Per Week of Alcohol Use: 0 - Recreational Drug Use Recreational Drug Use: No H&P Review of Systems - Review of Systems: Review Of Systems: See Below Free Text/Narrative: A complete 12 point review of systems was obtained. Pertinent positives and negatives are noted in the history of present illness. All other systems were reviewed and were negative except as noted. Exam - Exam Exam: See Below - Vital Signs Vital Signs: Last Vital Signs Temp 37.4 C 01/19/18 19:28 Pulse 116 H 01/19/18 19:28 Resp 16 01/19/18 19:28 BP 158/88 H 01/19/18 19:28 Pulse Ox 96 01/19/18 19:28 Weight: 47.627 kg - Exam Quality Assessment: No: Supplemental Oxygen General: Alert, Oriented, Cooperative, Mild Distress HEENT: Conjunctiva Clear. No: Mucosa Moist & [place] (dry), Scleral Icterus Neck: Supple, Trachea Midline Lungs: Clear to Auscultation, Normal Respiratory Effort. No: Wheezing Cardiovascular: Regular Rhythm, Tachycardia. No: Systolic Murmur GI/Abdominal Exam: Normal Bowel Sounds, Soft, No Distention, Guarding (Mild), Tender (Moderate generalized tenderness) Back Exam: Full Range of Motion Extremities: No Pedal Edema. No: Increased Warmth Skin: Warm, Dry Neuro Extensive - Mental Status: Alert, Oriented x3, Nl Response to Commands Neuro Extensive - Motor, Sensory, Reflexes: No: Dysarthria, Abnormal Motor, Tremor Psychiatric: Alert, Normal Affect - Patient Data Lab Results Last 24 hrs: Laboratory Results - last 24 hr 01/19/18 01/19/18 01/19/18 Range/Units 20:12 20:12 20:54 WBC 11.5 H (4.5-11.0) K/uL RBC 4.16 (3.30-5.50) M/uL Hgb 13.3 (12.0-15.0) g/dL Hct 39.4 (36.0-48.0) % MCV 95 (80-98) fL MCH 32 H (27-31) pg MCHC 34 (32-36) % Plt Count 290 (150-400) K/uL Neut % (Auto) 80 H (36-66) % Lymph % (Auto) 10 L (24-44) % [place] % (Auto) 9 H (2-6) % Eos % (Auto) 1 L (2-4) % Baso % (Auto) 0 (0-1) % Sodium 137 L (140-148) mmol/L Potassium 2.3 L* (3.6-5.2) mmol/L Chloride 100 (100-108) mmol/L Carbon Dioxide 25 (21-32) mmol/L Anion Gap 14.3 H (5.0-14.0) mmol/L BUN 15 D (7-18) mg/dL Creatinine 1.0 (0.6-1.0) mg/dL Est Cr Clr Drug Dosing 32.61 mL/min Estimated GFR (MDRD) 53 L (>60) Glucose 107 H (74-106) mg/dL Calcium 9.5 D (8.5-10.1) mg/dL Total Bilirubin 0.5 (0.2-1.0) mg/dL AST 22 (15-37) U/L ALT 14 (12-78) U/L Alkaline Phosphatase 133 H (46-116) U/L Total Protein 6.8 (6.4-8.2) g/dL Albumin 2.7 L (3.4-5.0) g/dL Globulin 4.1 H (2.3-3.5) g/dL Albumin/Globulin Ratio 0.7 L (1.2-2.2) Lipase 69 L (73-393) U/L Result Diagrams: 01/19/18 20:12 01/19/18 20:12 Imaging Impressions Last 24 hrs: CT scan of the abdomen and pelvis is pending at the time of admission *Q Meaningful Use (ADM) - VTE Risk Assess *Q Each Risk Factor Represents 1 Point: Abnormal Pulmonary Function (COPD) Total Score 1 Point Risk Factors: 1 Each Risk Factor Represents 2 Points: None Total Score 2 Point Risk Factors: 0 Each Risk Factor Represents 3 Points: Age 75 Years or Greater Total Score 3 Point Risk Factors: 3 Each Risk Factor Represents 5 Points: None Total Score 5 Point Risk Factors: 0 Venous Thromboembolism Risk Factor Score *Q: 4 - Problem List (1) Generalized abdominal pain SNOMED Code(s): 869820150 ICD Code: R10.84 - GENERALIZED ABDOMINAL PAIN Status: Acute Current Visit : Yes (2) Nausea without vomiting SNOMED Code(s): 898132228, 393179521 ICD Code: R11.0 - NAUSEA Status: Acute Current Visit: Yes (3) Diarrhea SNOMED Code(s): 51119208 ICD Code: R19.7 - DIARRHEA, UNSPECIFIED Status: Acute Current Visit: No Qualifiers: Diarrhea type: presumed infectious Qualified Code(s): R19.7 - Diarrhea, unspecified (4) Hypokalemia SNOMED Code(s): 37589418 ICD Code: E87.6 - HYPOKALEMIA Status: Acute Priority: Medium Current Visit: No (5) Chronic kidney disease, stage III (moderate) SNOMED Code(s): 117672106 ICD Code: N18.3 - CHRONIC KIDNEY DISEASE, STAGE 3 (MODERATE) Status: Chronic Current Visit: No (6) Paroxysmal atrial fibrillation SNOMED Code(s): 122757253 ICD Code: I48.0 - PAROXYSMAL ATRIAL FIBRILLATION Status: Chronic Priority : Medium Current Visit: No Problem List Initiated/Reviewed/Updated: Yes Orders Last 24hrs: Active Orders 24 hr Category Date Time Status Patient Status Manage Transfer [TRANSFER] Routine ADT 01/19/18 21:04 Active Abdomen Pelvis w Cont [CT] Routine Exams 01/19/18 21:03 Ordered CULTURE STOOL + SHIGATOX [RM] Stat Lab 01/19/18 20:03 Ordered OVA AND PARASITES [MREF] Stat Lab 01/19/18 20:03 Ordered Iopamidol [Isovue-300 (61%)] Med 01/19/18 21:15 Active 100 ml IV . DIRECTED Sodium Chloride 0.9% [Normal Saline] 1,000 ml Med 01/19/18 20:15 Active IV ASDIRECTED Sodium Chloride 0.9% [Normal Saline] 100 ml Med 01/19/18 21:15 Active IV ASDIRECTED Resuscitation Status Routine Resus Stat 01/19/18 21:07 Ordered Medication Orders Sodium Chloride (Normal Saline) 1,000 mls @ 250 mls/hr IV ASDIRECTED ANGELA Last Admin: 01/19/18 20:12 Dose: 250 mls/hr Sodium Chloride (Normal Saline) 100 mls @ 3 mls/sec IV ASDIRECTED ANGELA Iopamidol (Isovue-300 (61%)) 100 ml IV . DIRECTED ANGELA Assessment/Plan Comment:: ASSESSMENT AND PLAN - Persistent abdominal pain with nausea and diarrhea - recent C. difficile testing was negative. White count is mildly elevated and she has a low-grade fever. Significant pain on examination which is generalized. Diarrhea described as mucus-like stools. Stool sample has been collected but results are pending. -Pain control -Nausea management -IV fluids -CT scan of the abdomen and pelvis -Follow-up stool studies -EGD and colonoscopy on Sunday Profound hypokalemia - potassium level is only 2.3, likely related to gastrointestinal losses with diarrhea coupled with poor intake in the setting of persistent nausea. -60 mEq tonight and repeat in the morning -Cardiac monitoring until potassium improves -Magnesium level Paroxysmal atrial fibrillation - currently tachycardic but seems to be sinus with a regular rhythm. She is chronically anticoagulated. -Continue beta artem -INR in the morning and warfarin dosing based on INR Chronic kidney disease stage III - very mild at this time. Will be getting fluids overnight. -Repeat labs in the morning Maintenance issues - - DVT prophylaxis - warfarin - GI prophylaxis - PPI - Nutrition - clear liquids - Vega catheter - not indicated CODE STATUS - full code Admission justification - This patient will be admitted for inpatient services and is medically appropriate meeting medical necessity for inpatient admission as outlined in my documentation. I reasonably expect the patient will require inpatient services that span a period time over 2 midnights. I reasonably expect this patient to be discharged or transferred within 96 hours [facility]. Disposition - anticipate discharge home after the hospital stay Primary care physician - Dr. Sammy Zambrano M.D.
[2018-01-19] MEDS ORDERED: Ondansetron 4 MG Tab.DIS PO PRN (22:17)
[2018-01-19] MEDS ORDERED: HYDROmorphone 0.5 MG/0.5 ML Syringe IVPUSH PRN (22:17)
[2018-01-19] MEDS ORDERED: Albuterol 0.083% 2.5 MG/3 ML Neb Soln NEB PRN (22:17)
[2018-01-19] MEDS ORDERED: Promethazine 12.5 MG in Sodium Chloride 0.9% 50 ML IV PRN (22:17)
[2018-01-19] MEDS ORDERED: Acetaminophen 325 MG Tab PO PRN (22:17)
[2018-01-19] MEDS: Potassium Chloride 20 MEQ, Lidocaine 1% 2 ML in Sodium Chloride 0.9% 100 ML IV SCH (23:30)
[2018-01-20] MEDS: metroNIDAZOLE/Normal Saline 500 MG in Premix Bag 1 BAG IV SCH ×3 (00:34→15:51)
[2018-01-20] MEDS: cefTRIAXone 1 GM in Sodium Chloride 0.9% 50 ML IV SCH (01:24)
[2018-01-20] MEDS: Potassium Chloride 20 MEQ, Lidocaine 1% 2 ML in Sodium Chloride 0.9% 100 ML IV SCH ×6 (01:25→22:53)
[2018-01-20] MEDS: Sodium Chloride 0.9% 1,000 ML IV SCH ×2 (04:23→14:41)
[2018-01-20] MEDS ORDERED: Potassium Chloride 20 MEQ, Lidocaine 1% 2 ML in Sodium Chloride 0.9% 100 ML IV SCH (06:45)
[2018-01-20] MEDS: Budesonide 0.5 MG/2 ML Neb Susp NEB SCH ×2 (07:47→20:10)
[2018-01-20] MEDS: Albuterol/Ipratropium 3.0-0.5 MG/3 ML Neb Soln NEB SCH ×4 (07:47→20:10)
[2018-01-20] MEDS: Theophylline 300 MG Tab.ER PO SCH (08:42)
[2018-01-20] MEDS: Isosorbide Mononitrate 30 MG Tab.ER PO SCH (08:42)
[2018-01-20] MEDS: Aspirin 81 MG Tab.EC PO SCH (08:42)
[2018-01-20] MEDS: Theophylline 100 MG Cap.ER PO SCH (08:42)
[2018-01-20] MEDS: Levothyroxine 75 MCG Tab PO SCH (08:43)
[2018-01-20] MEDS: Pantoprazole 40 MG Tab.CR PO SCH (08:43)
[2018-01-20] MEDS: Carvedilol 3.125 MG Tab PO SCH ×2 (08:43→16:23)
[2018-01-20] MEDS: Allopurinol 300 MG Tab PO SCH (08:43)
[2018-01-20] MEDS ORDERED: Potassium Chloride 10 MEQ Cap.ER PO ONE (10:00)
[2018-01-20] MEDS ORDERED: oxyCODONE 5 MG Tab PO PRN (10:39)
--- NOTE | 2018-01-20 10:42 | PCM.PN ---
- General Info Date of Service: 01/20/18 Functional Status: Reports: Pain Controlled - Review of Systems General: Denies: Fever Gastrointestinal: Reports: Abdominal Pain, Diarrhea Systems Review Comment:: no acute events overnight. CT scan did show evidence for acute diverticulitis and also showed some cystic lesions in the head of the pancreas. Nausea is a little better and she's been able to tolerate clear liquids. Still having some diarrhea. Moderate abdominal pain present but she does not want a medications. She did not have fevers overnight. - Patient Data Vitals - Most Recent: Last Vital Signs Temp 36.1 C 01/20/18 07:22 Pulse 100 01/20/18 08:43 Resp 18 01/20/18 07:22 BP 129/64 01/20/18 08:43 Pulse Ox 97 01/20/18 07:51 Weight - Most Recent: 49.124 kg I&O - Last 24 Hours: Intake & Output 01/19/18 01/20/18 01/20/18 22:59 06:59 14:59 Intake Total 973 200 Output Total 400 Balance 973 -200 Lab Results Last 24 Hours: Laboratory Results - last 24 hr 01/19/18 01/19/18 01/19/18 Range/Units 20:12 20:12 20:54 WBC 11.5 H (4.5-11.0) K/uL RBC 4.16 (3.30-5.50) M/uL Hgb 13.3 (12.0-15.0) g/dL Hct 39.4 (36.0-48.0) % MCV 95 (80-98) fL MCH 32 H (27-31) pg MCHC 34 (32-36) % Plt Count 290 (150-400) K/uL Neut % (Auto) 80 H (36-66) % Lymph % (Auto) 10 L (24-44) % [place] % (Auto) 9 H (2-6) % Eos % (Auto) 1 L (2-4) % Baso % (Auto) 0 (0-1) % PT (9.5-12.0) sec INR (0.80-1.20) Sodium 137 L (140-148) mmol/L Potassium 2.3 L* (3.6-5.2) mmol/L Chloride 100 (100-108) mmol/L Carbon Dioxide 25 (21-32) mmol/L Anion Gap 14.3 H (5.0-14.0) mmol/L BUN 15 D (7-18) mg/dL Creatinine 1.0 (0.6-1.0) mg/dL Est Cr Clr Drug Dosing 32.61 mL/min Estimated GFR (MDRD) 53 L (>60) Glucose 107 H (74-106) mg/dL Calcium 9.5 D (8.5-10.1) mg/dL Magnesium (1.8-2.4) mg/dL Total Bilirubin 0.5 (0.2-1.0) mg/dL AST 22 (15-37) U/L ALT 14 (12-78) U/L Alkaline Phosphatase 133 H (46-116) U/L C-Reactive Protein (0.0-0.3) mg/dL Total Protein 6.8 (6.4-8.2) g/dL Albumin 2.7 L (3.4-5.0) g/dL Globulin 4.1 H (2.3-3.5) g/dL Albumin/Globulin Ratio 0.7 L (1.2-2.2) Lipase 69 L (73-393) U/L TSH, Ultra Sensitive (0.358-3.740) uIU/mL 01/20/18 01/20/18 01/20/18 Range/Units 05:18 05:18 05:18 WBC 7.6 (4.5-11.0) K/uL RBC 3.55 (3.30-5.50) M/uL Hgb 11.2 L D (12.0-15.0) g/dL Hct 34.2 L (36.0-48.0) % MCV 96 (80-98) fL MCH 32 H (27-31) pg MCHC 33 (32-36) % Plt Count 258 (150-400) K/uL Neut % (Auto) (36-66) % Lymph % (Auto) (24-44) % [place] % (Auto) (2-6) % Eos % (Auto) (2-4) % Baso % (Auto) (0-1) % PT 43.3 H (9.5-12.0) sec INR 3.83 H (0.80-1.20) Sodium 142 (140-148) mmol/L Potassium 2.6 L* (3.6-5.2) mmol/L Chloride 106 (100-108) mmol/L Carbon Dioxide 22 (21-32) mmol/L Anion Gap 16.6 H (5.0-14.0) mmol/L BUN 11 (7-18) mg/dL Creatinine 0.8 (0.6-1.0) mg/dL Est Cr Clr Drug Dosing 42.05 mL/min Estimated GFR (MDRD) > 60 (>60) Glucose 79 (74-106) mg/dL Calcium 8.4 L (8.5-10.1) mg/dL Magnesium 1.6 L (1.8-2.4) mg/dL Total Bilirubin (0.2-1.0) mg/dL AST (15-37) U/L ALT (12-78) U/L Alkaline Phosphatase (46-116) U/L C-Reactive Protein 24.60 H (0.0-0.3) mg/dL Total Protein (6.4-8.2) g/dL Albumin (3.4-5.0) g/dL Globulin (2.3-3.5) g/dL Albumin/Globulin Ratio (1.2-2.2) Lipase (73-393) U/L TSH, Ultra Sensitive 2.230 (0.358-3.740) uIU/mL Med Orders - Current: Current Medications Acetaminophen (Tylenol) 650 mg PO Q4H PRN PRN Reason: Pain (Mild 1-3)/fever Albuterol (Proventil Neb Soln) 2.5 mg NEB Q4H PRN PRN Reason: Shortness Of Breath/wheezing Albuterol/Ipratropium (Duoneb 3.0-0.5 Mg/3 Ml) 3 ml NEB QIDRT [facility] Last Admin: 01/20/18 07:47 Dose: 3 ml Allopurinol (Zyloprim) 150 mg PO DAILY [facility] Last Admin: 01/20/18 08:43 Dose: 150 mg Aspirin (Halfprin) 81 mg PO DAILY [facility] Last Admin: 01/20/18 08:42 Dose: 81 mg Budesonide (Pulmicort) 0.5 mg NEB BIDRT [facility] Last Admin: 01/20/18 07:47 Dose: 0.5 mg Carvedilol (Coreg) 3.125 mg PO BIDAC [facility] Last Admin: 01/20/18 08:43 Dose: 3.125 mg Hydromorphone HCl (Dilaudid) 0.5 mg IVPUSH Q2H PRN PRN Reason: Pain Promethazine HCl 12.5 mg/ (Sodium Chloride) 50.5 mls @ 200 mls/hr IV Q6H PRN PRN Reason: Nausea/Vomiting Last Admin: 01/20/18 10:18 Dose: 200 mls/hr Sodium Chloride (Normal Saline) 1,000 mls @ 75 mls/hr IV ASDIRECTED [facility] Last Admin: 01/20/18 04:23 Dose: 125 mls/hr Ceftriaxone Sodium 1 gm/ (Sodium Chloride) 50 mls @ 100 mls/hr IV Q24H [facility] Last Admin: 01/20/18 01:24 Dose: 100 mls/hr Metronidazole 500 mg/ Premix 100 mls @ 100 mls/hr IV Q8H [facility] Last Admin: 01/20/18 08:41 Dose: 100 mls/hr Potassium Chloride 20 meq/Lidocaine HCl 2 ml/ Sodium Chloride 112 mls @ 50 mls/ hr IV Q2H [facility] Stop: 01/20/18 12:59 Last Admin: 01/20/18 09:39 Dose: 50 mls/hr Magnesium Sulfate 2 gm/ Premix 50 mls @ 25 mls/hr IV Q6H [facility] Stop: 01/20/18 23:59 Isosorbide Mononitrate (Imdur) 30 mg PO DAILY [facility] Last Admin: 01/20/18 08:42 Dose: 30 mg Levothyroxine Sodium (Levothyroxine) 75 mcg PO DAILY@0730 [facility] Last Admin: 01/20/18 08:43 Dose: 75 mcg Lorazepam (Ativan) 0.5 - 1 mg IVPUSH Q4H PRN PRN Reason: Nausea/Vomiting Ondansetron HCl (Zofran Odt) 4 mg PO Q6H PRN PRN Reason: Nausea able to take PO Ondansetron HCl (Zofran) 4 mg IV Q6H PRN PRN Reason: Nausea/Vomiting Pantoprazole Sodium (Protonix) 40 mg PO ACBREAKFAST [facility] Last Admin: 01/20/18 08:43 Dose: 40 mg Pravastatin Sodium (Pravachol) 40 mg PO BEDTIME [facility] Prednisone (Prednisone) 10 mg PO DAILY@0800 [facility] Prochlorperazine Maleate (Compazine) 10 mg PO Q6H PRN PRN Reason: Nausea/Vomiting Theophylline (Theophylline Anhydrous) 300 mg PO DAILY [facility] Last Admin: 01/20/18 08:42 Dose: 300 mg Theophylline (Pablito-24) 100 mg PO DAILY [facility] Last Admin: 01/20/18 08:42 Dose: 100 mg Discontinued Medications Sodium Chloride (Normal Saline) 1,000 mls @ 250 mls/hr IV ASDIRECTED [facility] Last Admin: 01/19/18 20:12 Dose: 250 mls/hr Sodium Chloride (Normal Saline) 100 mls @ 3 mls/sec IV ASDIRECTED [facility] Last Admin: 01/19/18 21:27 Dose: 3 mls/sec Potassium Chloride 20 meq/Lidocaine HCl 2 ml/ Sodium Chloride 112 mls @ 50 mls/ hr IV Q2H [facility] Stop: 01/20/18 04:16 Last Admin: 01/20/18 04:22 Dose: 50 mls/hr Potassium Chloride (Kcl 20 Meq In Water 100 Ml) Confirm Administered Dose 300 mls @ as directed .ROUTE .STK-MED ONE Stop: 01/19/18 23:20 Last Admin: 01/19/18 23:30 Dose: Not Given Iopamidol (Isovue-300 (61%)) 100 ml IV . DIRECTED [facility] Last Admin: 01/19/18 21:27 Dose: 72 ml Lidocaine HCl (Xylocaine-Mpf 1%) Confirm Administered Dose 10 ml .ROUTE .STK- MED ONE Stop: 01/19/18 23:21 Last Admin: 01/19/18 23:30 Dose: Not Given Ondansetron HCl (Zofran) 4 mg IVPUSH ONETIME ONE Stop: 01/19/18 20:05 Last Admin: 01/19/18 20:11 Dose: 4 mg Potassium Chloride (Potassium Chloride) 20 meq PO ONETIME ONE Stop: 01/20/18 10:01 - Exam Quality Assessment: No: Supplemental Oxygen General: Alert, Oriented, Cooperative, No Acute Distress Neck: Supple Lungs: Normal Respiratory Effort Cardiovascular: Regular Rate, Regular Rhythm GI/Abdominal Exam: Soft, No Distention Extremities: No Pedal Edema Psy/Mental Status: Alert, Normal Affect - Problem List & Annotations (1) Acute diverticulitis SNOMED Code(s): 830649551 Code(s): K57.92 - DVTRCLI OF INTEST, PART UNSP, W/O PERF OR ABSCESS W/O BLEED Status: Acute Current Visit: Yes (2) Pancreatic lesion SNOMED Code(s): 5648987 Code(s): K86.9 - DISEASE OF PANCREAS, UNSPECIFIED Status: Acute Current Visit: Yes (3) Generalized abdominal pain SNOMED Code(s): 781210281 Code(s): R10.84 - GENERALIZED ABDOMINAL PAIN Status: Resolved Current Visit: Yes (4) Nausea without vomiting SNOMED Code(s): 012275983, 385131074 Code(s): R11.0 - NAUSEA Status: Resolved Current Visit: Yes (5) Diarrhea SNOMED Code(s): 01065192 Code(s): R19.7 - DIARRHEA, UNSPECIFIED Status: Resolved Current Visit: No Qualifiers: Diarrhea type: presumed infectious Qualified Code(s): R19.7 - Diarrhea, unspecified (6) Hypokalemia SNOMED Code(s): 50023257 Code(s): E87.6 - HYPOKALEMIA Status: Acute Priority: Medium Current Visit: Yes (7) Chronic kidney disease, stage III (moderate) SNOMED Code(s): 396894056 Code(s): N18.3 - CHRONIC KIDNEY DISEASE, STAGE 3 (MODERATE) Status: Chronic Current Visit: No (8) Paroxysmal atrial fibrillation SNOMED Code(s): 485832633 Code(s): I48.0 - PAROXYSMAL ATRIAL FIBRILLATION Status: Chronic Priority : Medium Current Visit: No - Problem List Review Problem List Initiated/Reviewed/Updated: Yes - My Orders Last 24 Hours: My Active Orders 01/19/18 21:03 Abdomen Pelvis w Cont [CT] Routine 01/19/18 21:07 Resuscitation Status Routine 01/19/18 22:17 Patient Status [ADT] Routine Intake and Output [RC] QSHIFT Notify Provider Vital Signs [RC] ASDIRECTED Oxygen Therapy [RC] PRN RT Aerosol Therapy [RC] ASDIRECTED Up With Assistance [RC] ASDIRECTED VTE/DVT Education [RC] Per Unit Routine Vital Signs [RC] Q4H Acetaminophen [Tylenol] 650 mg PO Q4H PRN Albuterol [Proventil Neb Soln] 2.5 mg NEB Q4H PRN HYDROmorphone [Dilaudid] 0.5 mg IVPUSH Q2H PRN LORazepam [Ativan] 0.5 - 1 mg IVPUSH Q4H PRN Ondansetron [Zofran ODT] 4 mg PO Q6H PRN Ondansetron [Zofran] 4 mg IV Q6H PRN Prochlorperazine [Compazine] 10 mg PO Q6H PRN Promethazine [Phenergan] 12.5 mg Sodium Chloride 0.9% [Normal Saline] 50 ml IV Q6H Sodium Chloride 0.9% [Normal Saline] 1,000 ml IV ASDIRECTED Sequential Compression Device [OM.PC] Per Unit Routine 01/20/18 00:00 metroNIDAZOLE/Normal Saline [Flagyl 500 MG in NS 100 ML] 500 mg Premix Bag 1 bag IV Q8H 01/20/18 01:00 cefTRIAXone [Rocephin] 1 gm Sodium Chloride 0.9% [Normal Saline] 50 ml IV Q24H 01/20/18 07:00 Albuterol/Ipratropium [DuoNeb 3.0-0.5 MG/3 ML] 3 ml NEB QIDRT Budesonide [Pulmicort] 0.5 mg NEB BIDRT 01/20/18 07:30 Carvedilol [Coreg] 3.125 mg PO BIDAC Pantoprazole [ProTONIX] 40 mg PO ACBREAKFAST 01/20/18 08:00 predniSONE 10 mg PO DAILY@0800 Physical Therapy Screening [PT Screening] [OM.PC] Routine 01/20/18 09:00 Allopurinol [Zyloprim] 150 mg PO DAILY Aspirin [Halfprin] 81 mg PO DAILY Isosorbide Mononitrate [Imdur] 30 mg PO DAILY Levothyroxine 75 mcg PO DAILY@0730 Potassium Chloride 20 meq Lidocaine 1% [Xylocaine 1%] 2 ml Sodium Chloride 0.9 % [Normal Saline] 100 ml IV Q2H Theophylline [Pablito-24] 100 mg PO DAILY Theophylline [Theophylline Anhydrous] 300 mg PO DAILY 01/20/18 10:00 Magnesium Sulfate/Water [Magnesium Sulfate 2 GM in Water 50 ML] 2 gm Premix Bag 1 bag IV Q6H 01/20/18 10:39 Loperamide [Imodium] 2 mg PO Q4H PRN oxyCODONE 5 mg PO Q4H PRN 01/20/18 10:40 Discontinue Telemetry Monitoring [Cardiac Monitoring Discontinue] [RC] Click to Edit 01/20/18 17:00 POTASSIUM,K [CHEM] Timed 01/20/18 21:00 Pravastatin [Pravachol] 40 mg PO BEDTIME 01/21/18 05:00 BASIC METABOLIC PANEL,BMP [CHEM] Timed CBC W/O DIFF,HEMOGRAM [HEME] Timed (1) INR,PT,PROTHROMBIN TIME [COAG] Timed 01/21/18 08:00 Consult to Case Management [CONS] Routine - Plan Plan:: ASSESSMENT AND PLAN - Acute diverticulitis - noted on CT scan last night.antibiotics initiated last night. Pain and nausea are little better today but not resolved. Doing okay with clear liquids. -Pain control -Nausea management -continue IV fluids -Follow-up stool studies -EGD and colonoscopy could be considered as an outpatient Cystic lesions in the pancreatic head - noted on CT last night. MRI recommended but she has a pacemaker so she cannot have this imaging study. Will need additional workup, could confer with radiologist to see if a dedicated CT would be helpful versus referral for endoscopic ultrasound biopsy. Profound hypokalemia - potassium level slightly better today after supplementation. -60 mEq (40 IV and 20 PO) this morning -Repeat potassium this afternoon -discontinue cardiac monitoring -supplement magnesium which was mildly low Paroxysmal atrial fibrillation - currently regular rhythm. She is chronically anticoagulated and INR is mildly elevated. -Continue beta artem -hold warfarin today -INR in the morning and warfarin dosing based on INR Chronic kidney disease stage III - very mild at this time. -Repeat labs in the morning Maintenance issues - - DVT prophylaxis - warfarin - GI prophylaxis - PPI - Nutrition - clear liquids Disposition - anticipate discharge home after the hospital stay Primary care physician - Dr. Sammy Zambrano M.D.
[2018-01-20] MEDS: predniSONE 10 MG Tab PO SCH (11:34)
[2018-01-20] MEDS: Magnesium Sulfate/Water 2 GM in Premix Bag 1 BAG IV SCH ×3 (11:35→22:01)
[2018-01-20] MEDS: Loperamide 2 MG Cap PO PRN ×3 (11:42→22:55)
[2018-01-20] MEDS ORDERED: Dimethicone 20%/Zinc Oxide 25% 56 GM Spray Bottle TOP PRN (14:12)
[2018-01-20] MEDS: Pravastatin 20 MG Tab PO SCH (20:08)
[2018-01-20] MEDS: LORazepam 2 MG/ML SDV IVPUSH PRN (23:59)
[2018-01-21] MEDS: metroNIDAZOLE/Normal Saline 500 MG in Premix Bag 1 BAG IV SCH ×3 (00:29→15:00)
[2018-01-21] MEDS: LORazepam 2 MG/ML SDV IVPUSH PRN ×2 (00:34→22:14)
[2018-01-21] MEDS: cefTRIAXone 1 GM in Sodium Chloride 0.9% 50 ML IV SCH (01:57)
[2018-01-21] MEDS: Sodium Chloride 0.9% 1,000 ML IV SCH ×2 (05:03→21:07)
[2018-01-21] MEDS: Ondansetron 4 MG/2 ML SDV IV PRN (06:51)
[2018-01-21] MEDS: Albuterol/Ipratropium 3.0-0.5 MG/3 ML Neb Soln NEB SCH ×4 (07:25→21:26)
[2018-01-21] MEDS: Budesonide 0.5 MG/2 ML Neb Susp NEB SCH ×2 (07:25→21:26)
[2018-01-21] MEDS: Prochlorperazine 10 MG Tab PO PRN (08:12)
[2018-01-21] MEDS: Loperamide 2 MG Cap PO PRN ×2 (09:16→13:40)
[2018-01-21] MEDS: Carvedilol 3.125 MG Tab PO SCH ×2 (09:20→16:03)
[2018-01-21] MEDS: Levothyroxine 75 MCG Tab PO SCH (09:21)
[2018-01-21] MEDS: Aspirin 81 MG Tab.EC PO SCH (09:21)
[2018-01-21] MEDS: Pantoprazole 40 MG Tab.CR PO SCH (09:21)
[2018-01-21] MEDS: predniSONE 10 MG Tab PO SCH (09:22)
[2018-01-21] MEDS: Theophylline 300 MG Tab.ER PO SCH (10:00)
[2018-01-21] MEDS: Theophylline 100 MG Cap.ER PO SCH (10:00)
[2018-01-21] MEDS: Isosorbide Mononitrate 30 MG Tab.ER PO SCH (10:00)
[2018-01-21] MEDS: Allopurinol 300 MG Tab PO SCH (10:00)
--- NOTE | 2018-01-21 15:16 | PCM.PN ---
- General Info Date of Service: 01/21/18 Subjective Update: Fantasma continues to experience diarrhea, but reports her abdominal pain has improved since admission. She did have some nausea and vomiting earlier today but that seems to resolve now as well. Vital signs have been stable and she has remained afebrile. - Review of Systems General: Reports: Weakness. Denies: Fever, Chills Pulmonary: Reports: No Symptoms Cardiovascular: Reports: No Symptoms Gastrointestinal: Reports: Abdominal Pain, Diarrhea, Nausea, Vomiting. Denies: Difficulty Swallowing, Hematochezia, Melena - Patient Data Vitals - Most Recent: Last Vital Signs Temp 98.0 F 01/21/18 14:52 Pulse 85 01/21/18 14:52 Resp 16 01/21/18 14:52 BP 99/52 L 01/21/18 14:52 Pulse Ox 91 L 01/21/18 14:52 Weight - Most Recent: 108 lb 4.798 oz I&O - Last 24 Hours: Intake & Output 01/21/18 01/21/18 01/21/18 06:59 14:59 22:59 Intake Total 1492 1140 Output Total 250 Balance 1492 890 Lab Results Last 24 Hours: Laboratory Results - last 24 hr 01/20/18 01/21/18 01/21/18 Range/Units 16:45 05:00 05:00 WBC 5.8 (4.5-11.0) K/uL RBC 3.37 (3.30-5.50) M/uL Hgb 10.6 L (12.0-15.0) g/dL Hct 32.8 L (36.0-48.0) % MCV 97 (80-98) fL MCH 32 H (27-31) pg MCHC 32 (32-36) % Plt Count 277 (150-400) K/uL PT 51.0 H (9.5-12.0) sec INR 4.48 H* (0.80-1.20) Sodium (140-148) mmol/L Potassium 3.8 (3.6-5.2) mmol/L Chloride (100-108) mmol/L Carbon Dioxide (21-32) mmol/L Anion Gap (5.0-14.0) mmol/L BUN (7-18) mg/dL Creatinine (0.6-1.0) mg/dL Est Cr Clr Drug Dosing mL/min Estimated GFR (MDRD) (>60) Glucose (74-106) mg/dL Calcium (8.5-10.1) mg/dL 01/21/18 Range/Units 05:00 WBC (4.5-11.0) K/uL RBC (3.30-5.50) M/uL Hgb (12.0-15.0) g/dL Hct (36.0-48.0) % MCV (80-98) fL MCH (27-31) pg MCHC (32-36) % Plt Count (150-400) K/uL PT (9.5-12.0) sec INR (0.80-1.20) Sodium 142 (140-148) mmol/L Potassium 3.5 L (3.6-5.2) mmol/L Chloride 112 H (100-108) mmol/L Carbon Dioxide 19 L (21-32) mmol/L Anion Gap 14.5 H (5.0-14.0) mmol/L BUN 8 (7-18) mg/dL Creatinine 0.7 (0.6-1.0) mg/dL Est Cr Clr Drug Dosing 48.05 mL/min Estimated GFR (MDRD) > 60 (>60) Glucose 86 (74-106) mg/dL Calcium 7.7 L (8.5-10.1) mg/dL Kash Results Last 24 Hours: Microbiology 01/19/18 20:03 Stool Culture - Preliminary Stool / Feces No Growth - Final NEGATIVE FOR SHIGA TOXIN 1 - Final NEGATIVE FOR SHIGA TOXIN 2 Med Orders - Current: Current Medications Acetaminophen (Tylenol) 650 mg PO Q4H PRN PRN Reason: Pain (Mild 1-3)/fever Albuterol (Proventil Neb Soln) 2.5 mg NEB Q4H PRN PRN Reason: Shortness Of Breath/wheezing Albuterol/Ipratropium (Duoneb 3.0-0.5 Mg/3 Ml) 3 ml NEB QIDRT [facility] Last Admin: 01/21/18 10:55 Dose: 3 ml Allopurinol (Zyloprim) 150 mg PO DAILY [facility] Last Admin: 01/21/18 10:00 Dose: 150 mg Aspirin (Halfprin) 81 mg PO DAILY [facility] Last Admin: 01/21/18 09:21 Dose: 81 mg Budesonide (Pulmicort) 0.5 mg NEB BIDRT [facility] Last Admin: 01/21/18 07:25 Dose: 0.5 mg Carvedilol (Coreg) 3.125 mg PO BIDAC [facility] Last Admin: 01/21/18 09:20 Dose: 3.125 mg Dimethicone/Zinc Oxide (Rash Relief-Zinc Oxide Turney) 0 gm TOP ASDIRECTED PRN PRN Reason: rectal irritation Hydromorphone HCl (Dilaudid) 0.5 mg IVPUSH Q2H PRN PRN Reason: Pain Promethazine HCl 12.5 mg/ (Sodium Chloride) 50.5 mls @ 200 mls/hr IV Q6H PRN PRN Reason: Nausea/Vomiting Last Admin: 01/20/18 10:18 Dose: 200 mls/hr Sodium Chloride (Normal Saline) 1,000 mls @ 75 mls/hr IV ASDIRECTED [facility] Last Admin: 01/21/18 05:03 Dose: 75 mls/hr Ceftriaxone Sodium 1 gm/ (Sodium Chloride) 50 mls @ 100 mls/hr IV Q24H [facility] Last Admin: 01/21/18 01:57 Dose: 100 mls/hr Metronidazole 500 mg/ Premix 100 mls @ 100 mls/hr IV Q8H [facility] Last Admin: 01/21/18 15:00 Dose: 100 mls/hr Phytonadione 1 mg/ Sodium (Chloride) 50.5 mls @ 100 mls/hr IV ONETIME ONE Stop: 01/21/18 15:41 Potassium Chloride 40 meq/ (Premix) 100 mls @ 25 mls/hr IV ONETIME ONE Stop: 01/21/18 19:10 Isosorbide Mononitrate (Imdur) 30 mg PO DAILY [facility] Last Admin: 01/21/18 10:00 Dose: 30 mg Levothyroxine Sodium (Levothyroxine) 75 mcg PO DAILY@0730 [facility] Last Admin: 01/21/18 09:21 Dose: 75 mcg Loperamide HCl (Imodium) 2 mg PO Q4H PRN PRN Reason: Diarrhea Last Admin: 01/21/18 13:40 Dose: 2 mg Lorazepam (Ativan) 0.5 - 1 mg IVPUSH Q4H PRN PRN Reason: Nausea/Vomiting Last Admin: 01/21/18 00:34 Dose: 0.5 mg Ondansetron HCl (Zofran Odt) 4 mg PO Q6H PRN PRN Reason: Nausea able to take PO Ondansetron HCl (Zofran) 4 mg IV Q6H PRN PRN Reason: Nausea/Vomiting Last Admin: 01/21/18 06:51 Dose: 4 mg Oxycodone HCl (Oxycodone) 5 mg PO Q4H PRN PRN Reason: Pain Pantoprazole Sodium (Protonix) 40 mg PO ACBREAKFAST [facility] Last Admin: 01/21/18 09:21 Dose: 40 mg Pravastatin Sodium (Pravachol) 40 mg PO BEDTIME [facility] Last Admin: 01/20/18 20:08 Dose: 40 mg Prednisone (Prednisone) 10 mg PO DAILY@0800 [facility] Last Admin: 01/21/18 09:22 Dose: 10 mg Prochlorperazine Maleate (Compazine) 10 mg PO Q6H PRN PRN Reason: Nausea/Vomiting Last Admin: 01/21/18 08:12 Dose: 10 mg Theophylline (Theophylline Anhydrous) 300 mg PO DAILY [facility] Last Admin: 01/21/18 10:00 Dose: 300 mg Theophylline (Pablito-24) 100 mg PO DAILY [facility] Last Admin: 01/21/18 10:00 Dose: 100 mg Discontinued Medications Sodium Chloride (Normal Saline) 1,000 mls @ 250 mls/hr IV ASDIRECTED [facility] Last Admin: 01/19/18 20:12 Dose: 250 mls/hr Sodium Chloride (Normal Saline) 100 mls @ 3 mls/sec IV ASDIRECTED [facility] Last Admin: 01/19/18 21:27 Dose: 3 mls/sec Potassium Chloride 20 meq/Lidocaine HCl 2 ml/ Sodium Chloride 112 mls @ 50 mls/ hr IV Q2H [facility] Stop: 01/20/18 04:16 Last Admin: 01/20/18 04:22 Dose: 50 mls/hr Potassium Chloride (Kcl 20 Meq In Water 100 Ml) Confirm Administered Dose 300 mls @ as directed .ROUTE .STK-MED ONE Stop: 01/19/18 23:20 Last Admin: 01/19/18 23:30 Dose: Not Given Potassium Chloride 20 meq/Lidocaine HCl 2 ml/ Sodium Chloride 112 mls @ 50 mls/ hr IV Q2H [facility] Stop: 01/20/18 12:59 Last Admin: 01/20/18 13:04 Dose: 50 mls/hr Magnesium Sulfate 2 gm/ Premix 50 mls @ 25 mls/hr IV Q6H [facility] Stop: 01/20/18 23:59 Last Admin: 01/20/18 22:01 Dose: 25 mls/hr Potassium Chloride 20 meq/Lidocaine HCl 2 ml/ Sodium Chloride 112 mls @ 50 mls/ hr IV Q2H [facility] Stop: 01/20/18 21:29 Last Admin: 01/20/18 22:53 Dose: 50 mls/hr Potassium Chloride (Kcl 20 Meq In Water 100 Ml) Confirm Administered Dose 200 mls @ as directed .ROUTE .STK-MED ONE Stop: 01/20/18 20:02 Last Admin: 01/20/18 20:10 Dose: Not Given Iopamidol (Isovue-300 (61%)) 100 ml IV . DIRECTED [facility] Last Admin: 01/19/18 21:27 Dose: 72 ml Lidocaine HCl (Xylocaine-Mpf 1%) Confirm Administered Dose 10 ml .ROUTE .STK- MED ONE Stop: 01/19/18 23:21 Last Admin: 01/19/18 23:30 Dose: Not Given Lidocaine HCl (Xylocaine-Mpf 1%) Confirm Administered Dose 5 ml .ROUTE .STK-MED ONE Stop: 01/20/18 20:03 Last Admin: 01/20/18 20:10 Dose: Not Given Ondansetron HCl (Zofran) 4 mg IVPUSH ONETIME ONE Stop: 01/19/18 20:05 Last Admin: 01/19/18 20:11 Dose: 4 mg Potassium Chloride (Potassium Chloride) 20 meq PO ONETIME ONE Stop: 01/20/18 10:01 Last Admin: 01/20/18 11:34 Dose: 20 meq - Exam Quality Assessment: DVT Prophylaxis General: Alert, Oriented, Cooperative, Mild Distress Lungs: Normal Respiratory Effort, Decreased Breath Sounds. No: Rales, Rhonchi, Wheezing Cardiovascular: Regular Rate, No Murmurs, Irregular Rhythm GI/Abdominal Exam: Soft, No Organomegaly, Tender. No: Distended, Guarding, Rigid, Rebound Extremities: Non-Tender, No Pedal Edema Skin: Warm, Dry, Intact - Problem List Review Problem List Initiated/Reviewed/Updated: Yes - My Orders Last 24 Hours: My Active Orders 01/21/18 15:11 Phytonadione [AquaMephyton] 1 mg Sodium Chloride 0.9% [Normal Saline] 50 ml IV ONETIME Potassium Chloride [KCL 40 MEQ in Water 100 ML] 40 meq Premix Bag 1 bag IV ONETIME 01/22/18 05:00 BASIC METABOLIC PANEL,BMP [CHEM] Timed INR,PT,PROTHROMBIN TIME [COAG] Timed MAGNESIUM [CHEM] Timed - Plan Plan:: ASSESSMENT AND PLAN - Acute diverticulitis - noted on CT scan, and has improved, continues to experience diarrhea with intermittent nausea and vomiting -Pain control -Nausea management -continue IV fluids -Follow-up stool studies -EGD and colonoscopy could be considered as an outpatient Cystic lesions in the pancreatic head - noted on CT last night. MRI recommended but she has a pacemaker so she cannot have this imaging study. Rule require further evaluation, consider outpatient GI consult. Profound hypokalemia - potassium level only slightly low today - 40 mEq IV today -Repeat potassium in a.m. Paroxysmal atrial fibrillation - currently regular rhythm. She is chronically anticoagulated and INR is further elevated -Continue beta artem -hold warfarin today -[place] 1 mg IV now -INR in the morning and warfarin dosing based on INR Chronic kidney disease stage III -Repeat labs in the morning Maintenance issues - - DVT prophylaxis - warfarin - GI prophylaxis - PPI - Nutrition - clear liquids Disposition - anticipate discharge home after the hospital stay Primary care physician - Dr. Christianson
[2018-01-21] MEDS ORDERED: Phytonadione 1 MG in Sodium Chloride 0.9% 50 ML IV ONE (15:30)
[2018-01-21] MEDS: Potassium Chloride 20 MEQ, Lidocaine 1% 2 ML in Sodium Chloride 0.9% 100 ML IV SCH ×2 (17:13→19:40)
[2018-01-21] MEDS: Pravastatin 20 MG Tab PO SCH (21:27)
[2018-01-22] MEDS: metroNIDAZOLE/Normal Saline 500 MG in Premix Bag 1 BAG IV SCH ×4 (01:34→23:36)
[2018-01-22] MEDS: cefTRIAXone 1 GM in Sodium Chloride 0.9% 50 ML IV SCH (03:23)
[2018-01-22] MEDS ORDERED: Magnesium Oxide 400 MG Tab PO ONE (06:11)
--- NOTE | 2018-01-22 06:22 | PCM.SN ---
- Free Text/Narrative Note: time :0600 s/o: call from [address] [place] [address]; Potassium 2.9, Mg++ 1.9 o: Hypokalemia p: IV Potassium 40 meq now, PO Magnesium 800 mg now. recheck Potassium at 1300 continue present plan of care.
[2018-01-22] MEDS ORDERED: Potassium Chloride 100 ML ONE (06:27)
[2018-01-22] MEDS: Potassium Chloride 20 MEQ, Lidocaine 1% 2 ML in Sodium Chloride 0.9% 100 ML IV SCH ×2 (06:42→10:57)
[2018-01-22] MEDS: Budesonide 0.5 MG/2 ML Neb Susp NEB SCH ×2 (07:20→21:59)
[2018-01-22] MEDS: Albuterol/Ipratropium 3.0-0.5 MG/3 ML Neb Soln NEB SCH ×4 (07:20→21:58)
[2018-01-22] MEDS: Pantoprazole 40 MG Tab.CR PO SCH (07:54)
[2018-01-22] MEDS: Levothyroxine 75 MCG Tab PO SCH (07:54)
[2018-01-22] MEDS: Carvedilol 3.125 MG Tab PO SCH ×2 (07:54→16:06)
[2018-01-22] MEDS: Theophylline 100 MG Cap.ER PO SCH (08:20)
[2018-01-22] MEDS: Isosorbide Mononitrate 30 MG Tab.ER PO SCH (08:20)
[2018-01-22] MEDS: predniSONE 10 MG Tab PO SCH (08:20)
[2018-01-22] MEDS: Allopurinol 300 MG Tab PO SCH (08:20)
[2018-01-22] MEDS: Aspirin 81 MG Tab.EC PO SCH (08:20)
[2018-01-22] MEDS: Theophylline 300 MG Tab.ER PO SCH (08:20)
[2018-01-22] MEDS ORDERED: Potassium Chloride 40 MEQ in Premix Bag 1 BAG IV ONE (08:24)
[2018-01-22] MEDS ORDERED: Potassium Chloride 20 MEQ Tab.ER PO ONE (09:00)
[2018-01-22] MEDS ORDERED: Magnesium Sulfate/Water 2 GM in Premix Bag 1 BAG IV ONE (10:00)
[2018-01-22] MEDS: Warfarin 2.5 MG Tab PO SCH (13:23)
[2018-01-22] MEDS: Furosemide 40 MG Tab PO SCH (13:23)
[2018-01-22] MEDS: Potassium Chloride 10 MEQ Cap.ER PO SCH ×2 (13:23→22:03)
[2018-01-22] MEDS: Clotrimazole 10 MG Troche PO SCH ×3 (13:24→22:04)
[2018-01-22] MEDS: Loperamide 2 MG Cap PO PRN (14:09)
--- NOTE | 2018-01-22 14:14 | PCM.PN ---
- General Info Date of Service: 01/22/18 Subjective Update: Fantasma has noted some improvement over the past 24 hours, abdominal pain is less and diarrhea seems to have resolved. Vital signs have been stable and she has remained afebrile. Mouth soreness has developed and appears that she has thrush related to antibiotic therapy. Functional Status: Reports: Pain Controlled, Tolerating Diet, Urinating - Review of Systems General: Reports: Weakness. Denies: Fever, Chills Pulmonary: Reports: No Symptoms Cardiovascular: Reports: No Symptoms Gastrointestinal: Reports: Abdominal Pain. Denies: Constipation, Diarrhea, Difficulty Swallowing, Nausea, Vomiting - Patient Data Vitals - Most Recent: Last Vital Signs Temp 98.1 F 01/22/18 07:50 Pulse 90 01/22/18 11:06 Resp 18 01/22/18 07:50 BP 99/60 01/22/18 08:20 Pulse Ox 96 01/22/18 07:50 Weight - Most Recent: 108 lb 4.798 oz I&O - Last 24 Hours: Intake & Output 01/21/18 01/22/18 01/22/18 22:59 06:59 14:59 Intake Total 1540 1244 Balance 1540 1244 Lab Results Last 24 Hours: Laboratory Results - last 24 hr 01/22/18 01/22/18 Range/Units 04:50 04:50 PT 17.8 H (9.5-12.0) sec INR 1.63 H D (0.80-1.20) Sodium 145 (140-148) mmol/L Potassium 2.9 L* (3.6-5.2) mmol/L Chloride 114 H (100-108) mmol/L Carbon Dioxide 21 (21-32) mmol/L Anion Gap 12.9 (5.0-14.0) mmol/L BUN 4 L (7-18) mg/dL Creatinine 0.7 (0.6-1.0) mg/dL Est Cr Clr Drug Dosing 48.05 mL/min Estimated GFR (MDRD) > 60 (>60) Glucose 85 (74-106) mg/dL Calcium 6.7 L* (8.5-10.1) mg/dL Magnesium 1.6 L (1.8-2.4) mg/dL Kash Results Last 24 Hours: Microbiology 01/19/18 20:03 Stool Culture - Final Stool / Feces NO SALMONELLA, SHIGELLA, CAMPYLOBACTER OR E.COLI O157 ISOLATED - Final NEGATIVE FOR SHIGA TOXIN 1 - Final NEGATIVE FOR SHIGA TOXIN 2 01/22/18 00:10 Clostridium difficile (PCR) - Final Stool / Feces NEGATIVE CDIFF TOXIN Med Orders - Current: Current Medications Acetaminophen (Tylenol) 650 mg PO Q4H PRN PRN Reason: Pain (Mild 1-3)/fever Albuterol (Proventil Neb Soln) 2.5 mg NEB Q4H PRN PRN Reason: Shortness Of Breath/wheezing Albuterol/Ipratropium (Duoneb 3.0-0.5 Mg/3 Ml) 3 ml NEB QIDRT [facility] Last Admin: 01/22/18 10:58 Dose: 3 ml Allopurinol (Zyloprim) 150 mg PO DAILY [facility] Last Admin: 01/22/18 08:20 Dose: 150 mg Aspirin (Halfprin) 81 mg PO DAILY [facility] Last Admin: 01/22/18 08:20 Dose: 81 mg Budesonide (Pulmicort) 0.5 mg NEB BIDRT [facility] Last Admin: 01/22/18 07:20 Dose: 0.5 mg Carvedilol (Coreg) 3.125 mg PO BIDAC [facility] Last Admin: 01/22/18 07:54 Dose: 3.125 mg Clotrimazole (Mycelex) 10 mg PO 5XDAY [facility] Last Admin: 01/22/18 13:24 Dose: 10 mg Dimethicone/Zinc Oxide (Rash Relief-Zinc Oxide [place]) 0 gm TOP ASDIRECTED PRN PRN Reason: rectal irritation Furosemide (Lasix) 40 mg PO DAILY [facility] Last Admin: 01/22/18 13:23 Dose: 40 mg Hydromorphone HCl (Dilaudid) 0.5 mg IVPUSH Q2H PRN PRN Reason: Pain Promethazine HCl 12.5 mg/ (Sodium Chloride) 50.5 mls @ 200 mls/hr IV Q6H PRN PRN Reason: Nausea/Vomiting Last Admin: 01/20/18 10:18 Dose: 200 mls/hr Ceftriaxone Sodium 1 gm/ (Sodium Chloride) 50 mls @ 100 mls/hr IV Q24H [facility] Last Admin: 01/22/18 03:23 Dose: 100 mls/hr Metronidazole 500 mg/ Premix 100 mls @ 100 mls/hr IV Q8H [facility] Last Admin: 01/22/18 09:52 Dose: 100 mls/hr Isosorbide Mononitrate (Imdur) 30 mg PO DAILY [facility] Last Admin: 01/22/18 08:20 Dose: 30 mg Levothyroxine Sodium (Levothyroxine) 75 mcg PO DAILY@0730 [facility] Last Admin: 01/22/18 07:54 Dose: 75 mcg Loperamide HCl (Imodium) 2 mg PO Q4H PRN PRN Reason: Diarrhea Last Admin: 01/21/18 13:40 Dose: 2 mg Lorazepam (Ativan) 0.5 - 1 mg IVPUSH Q4H PRN PRN Reason: Nausea/Vomiting Last Admin: 01/21/18 22:14 Dose: 1 mg Ondansetron HCl (Zofran Odt) 4 mg PO Q6H PRN PRN Reason: Nausea able to take PO Ondansetron HCl (Zofran) 4 mg IV Q6H PRN PRN Reason: Nausea/Vomiting Last Admin: 01/21/18 06:51 Dose: 4 mg Oxycodone HCl (Oxycodone) 5 mg PO Q4H PRN PRN Reason: Pain Pantoprazole Sodium (Protonix) 40 mg PO ACBREAKFAST [facility] Last Admin: 01/22/18 07:54 Dose: 40 mg Potassium Chloride (Potassium Chloride) 10 meq PO BID [facility] Last Admin: 01/22/18 13:23 Dose: 10 meq Pravastatin Sodium (Pravachol) 40 mg PO BEDTIME [facility] Last Admin: 01/21/18 21:27 Dose: 40 mg Prednisone (Prednisone) 10 mg PO DAILY@0800 [facility] Last Admin: 01/22/18 08:20 Dose: 10 mg Prochlorperazine Maleate (Compazine) 10 mg PO Q6H PRN PRN Reason: Nausea/Vomiting Last Admin: 01/21/18 08:12 Dose: 10 mg Theophylline (Theophylline Anhydrous) 300 mg PO DAILY [facility] Last Admin: 01/22/18 08:20 Dose: 300 mg Theophylline (Pablito-24) 100 mg PO DAILY [facility] Last Admin: 01/22/18 08:20 Dose: 100 mg Warfarin Sodium (Coumadin) 2.5 mg PO DAILY@1300 [facility] Last Admin: 01/22/18 13:23 Dose: 2.5 mg Discontinued Medications Sodium Chloride (Normal Saline) 1,000 mls @ 250 mls/hr IV ASDIRECTED [facility] Last Admin: 01/19/18 20:12 Dose: 250 mls/hr Sodium Chloride (Normal Saline) 100 mls @ 3 mls/sec IV ASDIRECTED [facility] Last Admin: 01/19/18 21:27 Dose: 3 mls/sec Potassium Chloride 20 meq/Lidocaine HCl 2 ml/ Sodium Chloride 112 mls @ 50 mls/ hr IV Q2H [facility] Stop: 01/20/18 04:16 Last Admin: 01/20/18 04:22 Dose: 50 mls/hr Sodium Chloride (Normal Saline) 1,000 mls @ 75 mls/hr IV ASDIRECTED [facility] Last Admin: 01/21/18 21:07 Dose: 75 mls/hr Potassium Chloride (Kcl 20 Meq In Water 100 Ml) Confirm Administered Dose 300 mls @ as directed .ROUTE .STK-MED ONE Stop: 01/19/18 23:20 Last Admin: 01/19/18 23:30 Dose: Not Given Potassium Chloride 20 meq/Lidocaine HCl 2 ml/ Sodium Chloride 112 mls @ 50 mls/ hr IV Q2H [facility] Stop: 01/20/18 12:59 Last Admin: 01/20/18 13:04 Dose: 50 mls/hr Magnesium Sulfate 2 gm/ Premix 50 mls @ 25 mls/hr IV Q6H [facility] Stop: 01/20/18 23:59 Last Admin: 01/20/18 22:01 Dose: 25 mls/hr Potassium Chloride 20 meq/Lidocaine HCl 2 ml/ Sodium Chloride 112 mls @ 50 mls/ hr IV Q2H [facility] Stop: 01/20/18 21:29 Last Admin: 01/20/18 22:53 Dose: 50 mls/hr Potassium Chloride (Kcl 20 Meq In Water 100 Ml) Confirm Administered Dose 200 mls @ as directed .ROUTE .STK-MED ONE Stop: 01/20/18 20:02 Last Admin: 01/20/18 20:10 Dose: Not Given Phytonadione 1 mg/ Sodium (Chloride) 50.5 mls @ 100 mls/hr IV ONETIME ONE Stop: 01/21/18 16:00 Last Admin: 01/21/18 16:05 Dose: 100 mls/hr Potassium Chloride 20 meq/Lidocaine HCl 2 ml/ Sodium Chloride 112 mls @ 56 mls/ hr IV Q2H [facility] Stop: 01/21/18 19:59 Last Admin: 01/21/18 19:40 Dose: 56 mls/hr Potassium Chloride 20 meq/Lidocaine HCl 2 ml/ Sodium Chloride 112 mls @ 50 mls/ hr IV Q2H [facility] Stop: 01/22/18 10:14 Last Admin: 01/22/18 10:57 Dose: 50 mls/hr Potassium Chloride (Kcl 20 Meq In Water 100 Ml) Confirm Administered Dose 100 mls @ as directed .ROUTE .STK-MED ONE Stop: 01/22/18 06:28 Last Admin: 01/22/18 06:44 Dose: Not Given Potassium Chloride 40 meq/ (Premix) 100 mls @ 25 mls/hr IV ONETIME ONE Stop: 01/22/18 12:23 Last Admin: 01/22/18 10:20 Dose: Not Given Magnesium Sulfate 2 gm/ Premix 50 mls @ 25 mls/hr IV ONETIME ONE Stop: 01/22/18 11:59 Last Admin: 01/22/18 10:57 Dose: 25 mls/hr Iopamidol (Isovue-300 (61%)) 100 ml IV . DIRECTED [facility] Last Admin: 01/19/18 21:27 Dose: 72 ml Lidocaine HCl (Xylocaine-Mpf 1%) Confirm Administered Dose 10 ml .ROUTE .STK- MED ONE Stop: 01/19/18 23:21 Last Admin: 01/19/18 23:30 Dose: Not Given Lidocaine HCl (Xylocaine-Mpf 1%) Confirm Administered Dose 5 ml .ROUTE .STK-MED ONE Stop: 01/20/18 20:03 Last Admin: 01/20/18 20:10 Dose: Not Given Lidocaine HCl (Xylocaine-Mpf 1%) Confirm Administered Dose 5 ml .ROUTE .STK-MED ONE Stop: 01/22/18 06:28 Last Admin: 01/22/18 06:45 Dose: Not Given Magnesium Oxide (Magnesium Oxide) 800 mg PO ONETIME ONE Stop: 01/22/18 06:12 Last Admin: 01/22/18 09:07 Dose: 800 mg Ondansetron HCl (Zofran) 4 mg IVPUSH ONETIME ONE Stop: 01/19/18 20:05 Last Admin: 01/19/18 20:11 Dose: 4 mg Potassium Chloride (Potassium Chloride) 20 meq PO ONETIME ONE Stop: 01/20/18 10:01 Last Admin: 01/20/18 11:34 Dose: 20 meq Potassium Chloride (Klor-Con M20) 40 meq PO ONETIME ONE Stop: 01/22/18 09:01 Last Admin: 01/22/18 09:10 Dose: 40 meq - Exam Quality Assessment: DVT Prophylaxis General: Alert, Oriented, Cooperative, No Acute Distress Lungs: Clear to Auscultation, Normal Respiratory Effort Cardiovascular: Regular Rate, No Murmurs, Irregular Rhythm GI/Abdominal Exam: Soft, No Organomegaly, No Distention, Tender. No: Distended , Guarding, Rigid, Rebound Extremities: Non-Tender, Pedal Edema Skin: Warm, Dry, Intact - Problem List Review Problem List Initiated/Reviewed/Updated: Yes - My Orders Last 24 Hours: My Active Orders 01/22/18 00:10 CLOSTRIDIUM DIFFICILE BY PCR [RM] Urgent 01/22/18 12:23 Convert IV to Saline Lock [OM.PC] Routine 01/22/18 12:27 Notify Provider Consults [RC] ASDIRECTED Consult to Physician [CONS] Routine 01/22/18 12:30 Potassium Chloride 10 meq PO BID 01/22/18 12:45 Furosemide [Lasix] 40 mg PO DAILY 01/22/18 13:00 Warfarin [Coumadin] 2.5 mg PO DAILY@1300 01/22/18 14:00 Clotrimazole [Mycelex] 10 mg PO 5XDAY 01/22/18 Lunch Full Liquid Diet [DIET] 01/23/18 05:00 BASIC METABOLIC PANEL,BMP [CHEM] Timed INR,PT,PROTHROMBIN TIME [COAG] Timed MAGNESIUM [CHEM] Timed - Plan Plan:: ASSESSMENT AND PLAN - Acute diverticulitis - noted on CT scan, pain and diarrhea have improved -Pain control -Nausea management -continue IV fluids -EGD and colonoscopy could be considered as an outpatient -Consult Dr. 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 Will require further evaluation, consider outpatient GI consult. Profound hypokalemia - potassium level significantly low today -IV as well as oral potassium replacement -Repeat potassium in a.m. Paroxysmal atrial fibrillation - currently regular rhythm. INR subtherapeutic today -resume warfarin -INR in the morning and warfarin dosing based on INR Chronic kidney disease stage III -Repeat labs in the morning Maintenance issues - - DVT prophylaxis - warfarin - GI prophylaxis - PPI - Nutrition - clear liquids Disposition - anticipate discharge home after the hospital stay Primary care physician - Dr. Christianson
[2018-01-22] MEDS: Lactobacillus Rhamnosus GG (Probiotic) Cap PO SCH ×2 (18:23→22:02)
[2018-01-22] MEDS: Pravastatin 20 MG Tab PO SCH (22:09)
[2018-01-22] MEDS: LORazepam 2 MG/ML SDV IVPUSH PRN (23:36)
[2018-01-23] MEDS: cefTRIAXone 1 GM in Sodium Chloride 0.9% 50 ML IV SCH (00:55)
[2018-01-23] MEDS: Ondansetron 4 MG/2 ML SDV IV PRN (01:36)
[2018-01-23] MEDS: Clotrimazole 10 MG Troche PO SCH ×5 (05:52→21:49)
[2018-01-23] MEDS: Budesonide 0.5 MG/2 ML Neb Susp NEB SCH ×2 (07:23→21:40)
[2018-01-23] MEDS: Albuterol/Ipratropium 3.0-0.5 MG/3 ML Neb Soln NEB SCH ×4 (07:23→21:40)
[2018-01-23] MEDS: metroNIDAZOLE/Normal Saline 500 MG in Premix Bag 1 BAG IV SCH ×2 (07:46→15:09)
[2018-01-23] MEDS: Pantoprazole 40 MG Tab.CR PO SCH (07:46)
[2018-01-23] MEDS: Levothyroxine 75 MCG Tab PO SCH (07:46)
[2018-01-23] MEDS: Carvedilol 3.125 MG Tab PO SCH ×2 (07:46→16:31)
[2018-01-23] MEDS: Potassium Chloride 10 MEQ Cap.ER PO SCH ×2 (08:17→21:48)
[2018-01-23] MEDS: Isosorbide Mononitrate 30 MG Tab.ER PO SCH (08:18)
[2018-01-23] MEDS: Theophylline 100 MG Cap.ER PO SCH (08:18)
[2018-01-23] MEDS: predniSONE 10 MG Tab PO SCH (08:18)
[2018-01-23] MEDS: Furosemide 40 MG Tab PO SCH (08:18)
[2018-01-23] MEDS: Aspirin 81 MG Tab.EC PO SCH (08:18)
[2018-01-23] MEDS: Theophylline 300 MG Tab.ER PO SCH (08:18)
[2018-01-23] MEDS: Allopurinol 300 MG Tab PO SCH (08:19)
[2018-01-23] MEDS: Lactobacillus Rhamnosus GG (Probiotic) Cap PO SCH ×2 (09:26→21:47)
[2018-01-23] MEDS: Magnesium Oxide 400 MG Tab PO SCH ×2 (09:26→21:47)
[2018-01-23] MEDS: Magnesium Sulfate/Water 2 GM in Premix Bag 1 BAG IV SCH ×3 (09:27→21:48)
--- NOTE | 2018-01-23 09:31 | PN ---
DATE OF SERVICE: 01/23/2018 SUBJECTIVE: Dee reports that she is feeling better. She has had bowel movements. She is a little bit nauseated. She also reports that she decided not to have surgery because she is feeling better now, and she said she has episodes like this about every 4 to 5 months. Feels like the rectal prolapse is not as bad this morning. She remains to be on a full liquid diet and tolerating that well. REVIEW OF SYSTEMS: HEENT: Negative. NECK: Negative. CHEST: No chest pain, shortness of breath, or fast or irregular heartbeat. LUNGS: No cough. ABDOMEN: As above. : Negative. EXTREMITIES: Negative. NEURO: Negative for headache, dizziness, or loss of coordination. PSYCHIATRIC: Negative for depression and anxiety. Remainder of review of systems negative for any pertinent positives and negatives. OBJECTIVE: GENERAL: Dee Jenkins is a pleasant 82-year-old female. VITAL SIGNS: TPR is 96.7, 95, 18. Blood pressure 112/54. HEENT: Negative. NECK: Supple. HEART: Regular rate and rhythm. LUNGS: Clear. ABDOMEN: Soft, nontender. EXTREMITIES: Without peripheral edema. SKIN: Without rash. ASSESSMENT: 1. Acute pancreatitis, noted on CT. Diarrhea improved. 2. Rectal prolapse. 3. Thrush. 4. Hypokalemia. 5. Paroxysmal atrial fibrillation. 6. Chronic kidney disease, stage III. PLAN: 1. Rx magnesium 2 g IV q.6 hours x72 hours. 2. Potassium acetate 40 mEq IV today. 3. Check CBC, CMP and phos in the a.m. 4. Good pulmonary toilet. 5. We will evaluate p.r.n. or in the a.m. Krystal Bernal PA-C /[id number]
[2018-01-23] MEDS ORDERED: Potassium Chloride 20 MEQ Tab.ER PO ONE (10:00)
[2018-01-23] MEDS ORDERED: Magnesium Sulfate/Water 2 GM in Premix Bag 1 BAG IV ONE (10:00)
[2018-01-23] MEDS: Warfarin 2.5 MG Tab PO SCH (12:15)
--- NOTE | 2018-01-23 13:13 | PCM.PN ---
- General Info Date of Service: 01/23/18 Subjective Update: This patient has been stable since yesterday, she is noted further improvement in abdominal pain and has remained afebrile. Is having some difficulty with stool incontinence likely related to her rectal prolapse. Functional Status: Reports: Tolerating Diet, Urinating - Review of Systems General: Reports: Weakness. Denies: Fever, Chills Pulmonary: Reports: Shortness of Breath. Denies: Pleuritic Chest Pain, Cough, Sputum, Hemoptysis, Wheezing Cardiovascular: Reports: Dyspnea on Exertion. Denies: Chest Pain, Palpitations , Orthopnea, PND, Edema Gastrointestinal: Reports: Abdominal Pain. Denies: Constipation, Diarrhea, Difficulty Swallowing, Nausea, Vomiting - Patient Data Vitals - Most Recent: Last Vital Signs Temp 97.3 F 01/23/18 11:41 Pulse 99 01/23/18 11:41 Resp 18 01/23/18 11:41 BP 120/60 01/23/18 11:41 Pulse Ox 99 01/23/18 11:41 Weight - Most Recent: 108 lb 4.798 oz I&O - Last 24 Hours: Intake & Output 01/22/18 01/23/18 01/23/18 22:59 06:59 14:59 Intake Total 250 100 370 Output Total 2350 1300 600 Balance -2100 -1200 -230 Lab Results Last 24 Hours: Laboratory Results - last 24 hr 01/23/18 01/23/18 Range/Units 05:49 05:49 PT 14.4 H (9.5-12.0) sec INR 1.33 H (0.80-1.20) Sodium 139 L (140-148) mmol/L Potassium 3.5 L (3.6-5.2) mmol/L Chloride 108 (100-108) mmol/L Carbon Dioxide 24 (21-32) mmol/L Anion Gap 10.5 (5.0-14.0) mmol/L BUN 3 L (7-18) mg/dL Creatinine 0.7 (0.6-1.0) mg/dL Est Cr Clr Drug Dosing 48.05 mL/min Estimated GFR (MDRD) > 60 (>60) Glucose 74 (74-106) mg/dL Calcium 7.4 L (8.5-10.1) mg/dL Magnesium 1.6 L (1.8-2.4) mg/dL Kash Results Last 24 Hours: Microbiology 01/19/18 20:03 Specimen Source - Final Stool / Feces Ova and Parasites - Final - Final Med Orders - Current: Current Medications Acetaminophen (Tylenol) 650 mg PO Q4H PRN PRN Reason: Pain (Mild 1-3)/fever Albuterol (Proventil Neb Soln) 2.5 mg NEB Q4H PRN PRN Reason: Shortness Of Breath/wheezing Albuterol/Ipratropium (Duoneb 3.0-0.5 Mg/3 Ml) 3 ml NEB QIDRT [facility] Last Admin: 01/23/18 10:42 Dose: Not Given Allopurinol (Zyloprim) 150 mg PO DAILY [facility] Last Admin: 01/23/18 08:19 Dose: 150 mg Aspirin (Halfprin) 81 mg PO DAILY [facility] Last Admin: 01/23/18 08:18 Dose: 81 mg Budesonide (Pulmicort) 0.5 mg NEB BIDRT [facility] Last Admin: 01/23/18 07:23 Dose: 0.5 mg Carvedilol (Coreg) 3.125 mg PO BIDAC [facility] Last Admin: 01/23/18 07:46 Dose: 3.125 mg Clotrimazole (Mycelex) 10 mg PO 5XDAY [facility] Last Admin: 01/23/18 09:26 Dose: 10 mg Dimethicone/Zinc Oxide (Rash Relief-Zinc Oxide [place]) 0 gm TOP ASDIRECTED PRN PRN Reason: rectal irritation Furosemide (Lasix) 40 mg PO DAILY [facility] Last Admin: 01/23/18 08:18 Dose: 40 mg Hydromorphone HCl (Dilaudid) 0.5 mg IVPUSH Q2H PRN PRN Reason: Pain Promethazine HCl 12.5 mg/ (Sodium Chloride) 50.5 mls @ 200 mls/hr IV Q6H PRN PRN Reason: Nausea/Vomiting Last Admin: 01/20/18 10:18 Dose: 200 mls/hr Ceftriaxone Sodium 1 gm/ (Sodium Chloride) 50 mls @ 100 mls/hr IV Q24H [facility] Last Admin: 01/23/18 00:55 Dose: 100 mls/hr Metronidazole 500 mg/ Premix 100 mls @ 100 mls/hr IV Q8H [facility] Last Admin: 01/23/18 07:46 Dose: 100 mls/hr Magnesium Sulfate 2 gm/ Premix 50 mls @ 25 mls/hr IV Q6H [facility] Stop: 01/26/18 05:59 Last Admin: 01/23/18 09:27 Dose: 25 mls/hr Potassium Acetate 20 meq/ (Sodium Chloride) 110 mls @ 55 mls/hr IV Q2H [facility] Stop: 01/23/18 13:59 Last Admin: 01/23/18 12:15 Dose: 55 mls/hr Isosorbide Mononitrate (Imdur) 30 mg PO DAILY [facility] Last Admin: 01/23/18 08:18 Dose: 30 mg Lactobacillus Rhamnosus (Culturelle) 2 cap PO BID [facility] Last Admin: 01/23/18 09:26 Dose: 2 cap Levothyroxine Sodium (Levothyroxine) 75 mcg PO DAILY@0730 [facility] Last Admin: 01/23/18 07:46 Dose: 75 mcg Loperamide HCl (Imodium) 2 mg PO Q4H PRN PRN Reason: Diarrhea Last Admin: 01/22/18 14:09 Dose: 2 mg Lorazepam (Ativan) 0.5 - 1 mg IVPUSH Q4H PRN PRN Reason: Nausea/Vomiting Last Admin: 01/22/18 23:36 Dose: 0.5 mg Magnesium Oxide (Magnesium Oxide) 400 mg PO BID [facility] Last Admin: 01/23/18 09:26 Dose: 400 mg Ondansetron HCl (Zofran Odt) 4 mg PO Q6H PRN PRN Reason: Nausea able to take PO Ondansetron HCl (Zofran) 4 mg IV Q6H PRN PRN Reason: Nausea/Vomiting Last Admin: 01/23/18 01:36 Dose: 4 mg Oxycodone HCl (Oxycodone) 5 mg PO Q4H PRN PRN Reason: Pain Pantoprazole Sodium (Protonix) 40 mg PO ACBREAKFAST [facility] Last Admin: 01/23/18 07:46 Dose: 40 mg Potassium Chloride (Potassium Chloride) 10 meq PO BID [facility] Last Admin: 01/23/18 08:17 Dose: 10 meq Pravastatin Sodium (Pravachol) 40 mg PO BEDTIME [facility] Last Admin: 01/22/18 22:09 Dose: 40 mg Prednisone (Prednisone) 10 mg PO DAILY@0800 [facility] Last Admin: 01/23/18 08:18 Dose: 10 mg Prochlorperazine Maleate (Compazine) 10 mg PO Q6H PRN PRN Reason: Nausea/Vomiting Last Admin: 01/21/18 08:12 Dose: 10 mg Theophylline (Theophylline Anhydrous) 300 mg PO DAILY [facility] Last Admin: 01/23/18 08:18 Dose: 300 mg Theophylline (Pablito-24) 100 mg PO DAILY [facility] Last Admin: 01/23/18 08:18 Dose: 100 mg Warfarin Sodium (Coumadin) 2.5 mg PO DAILY@1300 [facility] Last Admin: 01/23/18 12:15 Dose: 2.5 mg Discontinued Medications Sodium Chloride (Normal Saline) 1,000 mls @ 250 mls/hr IV ASDIRECTED [facility] Last Admin: 01/19/18 20:12 Dose: 250 mls/hr Sodium Chloride (Normal Saline) 100 mls @ 3 mls/sec IV ASDIRECTED [facility] Last Admin: 01/19/18 21:27 Dose: 3 mls/sec Potassium Chloride 20 meq/Lidocaine HCl 2 ml/ Sodium Chloride 112 mls @ 50 mls/ hr IV Q2H [facility] Stop: 01/20/18 04:16 Last Admin: 01/20/18 04:22 Dose: 50 mls/hr Sodium Chloride (Normal Saline) 1,000 mls @ 75 mls/hr IV ASDIRECTED [facility] Last Admin: 01/21/18 21:07 Dose: 75 mls/hr Potassium Chloride (Kcl 20 Meq In Water 100 Ml) Confirm Administered Dose 300 mls @ as directed .ROUTE .STK-MED ONE Stop: 01/19/18 23:20 Last Admin: 01/19/18 23:30 Dose: Not Given Potassium Chloride 20 meq/Lidocaine HCl 2 ml/ Sodium Chloride 112 mls @ 50 mls/ hr IV Q2H [facility] Stop: 01/20/18 12:59 Last Admin: 01/20/18 13:04 Dose: 50 mls/hr Magnesium Sulfate 2 gm/ Premix 50 mls @ 25 mls/hr IV Q6H [facility] Stop: 01/20/18 23:59 Last Admin: 01/20/18 22:01 Dose: 25 mls/hr Potassium Chloride 20 meq/Lidocaine HCl 2 ml/ Sodium Chloride 112 mls @ 50 mls/ hr IV Q2H [facility] Stop: 01/20/18 21:29 Last Admin: 01/20/18 22:53 Dose: 50 mls/hr Potassium Chloride (Kcl 20 Meq In Water 100 Ml) Confirm Administered Dose 200 mls @ as directed .ROUTE .STK-MED ONE Stop: 01/20/18 20:02 Last Admin: 01/20/18 20:10 Dose: Not Given Phytonadione 1 mg/ Sodium (Chloride) 50.5 mls @ 100 mls/hr IV ONETIME ONE Stop: 01/21/18 16:00 Last Admin: 01/21/18 16:05 Dose: 100 mls/hr Potassium Chloride 20 meq/Lidocaine HCl 2 ml/ Sodium Chloride 112 mls @ 56 mls/ hr IV Q2H [facility] Stop: 01/21/18 19:59 Last Admin: 01/21/18 19:40 Dose: 56 mls/hr Potassium Chloride 20 meq/Lidocaine HCl 2 ml/ Sodium Chloride 112 mls @ 50 mls/ hr IV Q2H [facility] Stop: 01/22/18 10:14 Last Admin: 01/22/18 10:57 Dose: 50 mls/hr Potassium Chloride (Kcl 20 Meq In Water 100 Ml) Confirm Administered Dose 100 mls @ as directed .ROUTE .STK-MED ONE Stop: 01/22/18 06:28 Last Admin: 01/22/18 06:44 Dose: Not Given Potassium Chloride 40 meq/ (Premix) 100 mls @ 25 mls/hr IV ONETIME ONE Stop: 01/22/18 12:23 Last Admin: 01/22/18 10:20 Dose: Not Given Magnesium Sulfate 2 gm/ Premix 50 mls @ 25 mls/hr IV ONETIME ONE Stop: 01/22/18 11:59 Last Admin: 01/22/18 10:57 Dose: 25 mls/hr Magnesium Sulfate 2 gm/ Premix 50 mls @ 25 mls/hr IV ONETIME ONE Stop: 01/23/18 11:59 Iopamidol (Isovue-300 (61%)) 100 ml IV . DIRECTED [facility] Last Admin: 01/19/18 21:27 Dose: 72 ml Lidocaine HCl (Xylocaine-Mpf 1%) Confirm Administered Dose 10 ml .ROUTE .STK- MED ONE Stop: 01/19/18 23:21 Last Admin: 01/19/18 23:30 Dose: Not Given Lidocaine HCl (Xylocaine-Mpf 1%) Confirm Administered Dose 5 ml .ROUTE .STK-MED ONE Stop: 01/20/18 20:03 Last Admin: 01/20/18 20:10 Dose: Not Given Lidocaine HCl (Xylocaine-Mpf 1%) Confirm Administered Dose 5 ml .ROUTE .STK-MED ONE Stop: 01/22/18 06:28 Last Admin: 01/22/18 06:45 Dose: Not Given Magnesium Oxide (Magnesium Oxide) 800 mg PO ONETIME ONE Stop: 01/22/18 06:12 Last Admin: 01/22/18 09:07 Dose: 800 mg Ondansetron HCl (Zofran) 4 mg IVPUSH ONETIME ONE Stop: 01/19/18 20:05 Last Admin: 01/19/18 20:11 Dose: 4 mg Potassium Chloride (Potassium Chloride) 20 meq PO ONETIME ONE Stop: 01/20/18 10:01 Last Admin: 01/20/18 11:34 Dose: 20 meq Potassium Chloride (Klor-Con M20) 40 meq PO ONETIME ONE Stop: 01/22/18 09:01 Last Admin: 01/22/18 09:10 Dose: 40 meq Potassium Chloride (Klor-Con M20) 40 meq PO ONETIME ONE Stop: 01/23/18 10:01 Last Admin: 01/23/18 09:26 Dose: 40 meq - Exam Quality Assessment: DVT Prophylaxis General: Alert, Oriented, Cooperative, No Acute Distress Lungs: Clear to Auscultation, Normal Respiratory Effort, Decreased Breath Sounds. No: Rhonchi, Wheezing Cardiovascular: Regular Rate, Regular Rhythm, No Murmurs GI/Abdominal Exam: Soft, No Organomegaly, Tender. No: Distended, Guarding, Rigid, Rebound Extremities: Non-Tender, No Pedal Edema Skin: Warm, Dry, Intact - Problem List Review Problem List Initiated/Reviewed/Updated: Yes - My Orders Last 24 Hours: My Active Orders 01/22/18 12:23 Convert IV to Saline Lock [OM.PC] Routine 01/22/18 12:27 Notify Provider Consults [RC] ASDIRECTED Consult to Physician [CONS] Routine 01/22/18 12:30 Potassium Chloride 10 meq PO BID 01/22/18 12:45 Furosemide [Lasix] 40 mg PO DAILY 01/22/18 13:00 Warfarin [Coumadin] 2.5 mg PO DAILY@1300 01/22/18 14:00 Clotrimazole [Mycelex] 10 mg PO 01/22/18 17:45 Lactobacillus Rhamnosus GG [Culturelle] 2 cap PO BID 01/23/18 09:00 Magnesium Oxide 400 mg PO BID 01/24/18 05:00 BASIC METABOLIC PANEL,BMP [CHEM] Timed INR,PT,PROTHROMBIN TIME [COAG] Timed MAGNESIUM [CHEM] Timed - Plan Plan:: ASSESSMENT AND PLAN - Acute diverticulitis - noted on CT scan, pain and diarrhea have improved, but not totally resolved -Pain control -Nausea management -Saline lock IV -Continue IV Zosyn -EGD and colonoscopy could be considered as an outpatient -Consult Dr. 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 Paroxysmal atrial fibrillation - currently regular rhythm. INR subtherapeutic today -Continue warfarin -INR in the morning and warfarin dosing based on INR Chronic kidney disease stage III -Repeat labs in the morning Maintenance issues - - DVT prophylaxis - warfarin - GI prophylaxis - PPI - Nutrition - clear liquids Disposition - anticipate discharge home after the hospital stay Primary care physician - Dr. Christianson
[2018-01-23] MEDS: Melatonin 3 MG Tab PO SCH (21:44)
[2018-01-23] MEDS: Pravastatin 20 MG Tab PO SCH (21:48)
[2018-01-24] MEDS: metroNIDAZOLE/Normal Saline 500 MG in Premix Bag 1 BAG IV SCH ×4 (00:24→21:19)
[2018-01-24] MEDS: cefTRIAXone 1 GM in Sodium Chloride 0.9% 50 ML IV SCH (01:41)
[2018-01-24] MEDS: Magnesium Sulfate/Water 2 GM in Premix Bag 1 BAG IV SCH ×2 (04:56→10:53)
[2018-01-24] MEDS: Albuterol/Ipratropium 3.0-0.5 MG/3 ML Neb Soln NEB SCH ×4 (07:27→21:15)
[2018-01-24] MEDS: Budesonide 0.5 MG/2 ML Neb Susp NEB SCH ×2 (07:27→21:15)
[2018-01-24] MEDS: Clotrimazole 10 MG Troche PO SCH ×6 (08:05→21:18)
[2018-01-24] MEDS: Theophylline 100 MG Cap.ER PO SCH (08:08)
[2018-01-24] MEDS: Magnesium Oxide 400 MG Tab PO SCH (08:08)
[2018-01-24] MEDS: predniSONE 10 MG Tab PO SCH (08:08)
[2018-01-24] MEDS: Pantoprazole 40 MG Tab.CR PO SCH (08:08)
[2018-01-24] MEDS: Aspirin 81 MG Tab.EC PO SCH (08:09)
[2018-01-24] MEDS: Potassium Chloride 10 MEQ Cap.ER PO SCH ×2 (08:09→21:10)
[2018-01-24] MEDS: Lactobacillus Rhamnosus GG (Probiotic) Cap PO SCH ×2 (08:10→21:09)
[2018-01-24] MEDS: Furosemide 40 MG Tab PO SCH (08:10)
[2018-01-24] MEDS: Isosorbide Mononitrate 30 MG Tab.ER PO SCH (08:10)
[2018-01-24] MEDS: Carvedilol 3.125 MG Tab PO SCH ×2 (08:11→17:16)
[2018-01-24] MEDS: Levothyroxine 75 MCG Tab PO SCH (08:11)
[2018-01-24] MEDS: Theophylline 300 MG Tab.ER PO SCH (08:12)
[2018-01-24] MEDS: Allopurinol 300 MG Tab PO SCH (08:12)
--- NOTE | 2018-01-24 08:51 | CONS ---
DATE OF SERVICE: 01/22/2018 REFERRING PHYSICIAN: CONSULTING PHYSICIAN: Robert Pate MD HISTORY: This is an 82-year-old admitted on 01/19/2018 with abdominal pain. At this point, the diagnosis appears to be sigmoid colon diverticulitis, and she has been on antibiotics since that time. On examination, she still remains quite strikingly tender and hard over that area. This is her third episode of abdominal pain for which she had been treated with antibiotics over the last month or so. The patient's past medical history is outlined per Dr. Zambrano' H and P. Her most troubling organ system would appear to be lungs, as she has fairly marked COPD, but she has been able to walk a decent distance recently without extra oxygen. Her other problem is to do with a quite striking rectal prolapse with there being extensive prolapse of the rectum, particularly when she has looser bowel movements. PHYSICAL EXAMINATION: On examination, the patient is mildly distended in the abdomen. She does have some fullness and quite marked tenderness in the left lower quadrant. She is not presently on any pain medication. Rectal exam is consistent with a prolapse when she bears down, although it is not as prominent as she describes at the moment. IMPRESSION: Smoldering persistent sigmoid colon diverticulitis. The patient is eager to have something done operatively, as this has been her third episode. I think we will give this a little time overnight to at least see if things begin to improve at all. If they do not, I think the next step would probably be a sigmoid resection, and at that point, we would also dissect in behind the rectal area in order to try to scar down the rectum and reduce the degree of rectal prolapse. I will see the patient in the morning and make a decision at that point in terms of what to do, at least for the next day. Robert Pate MD /[id number]
[2018-01-24] MEDS: Acetaminophen 500 MG Tab PO PRN (12:22)
--- NOTE | 2018-01-24 12:26 | PN ---
DATE OF SERVICE: 01/24/2018 SUBJECTIVE: Dee had some nausea during the night with a small emesis. She declined taking any Zofran, states it would pass, then, afebrile, tolerating a diet well. Oral intake 960. Output 4450. She has had her 100% breakfast and dinner, 50% of lunch. Last bowel movement was on 01/23/2018. OBJECTIVE: HEENT: Negative. NECK: Supple. HEART: Regular rate and rhythm. LUNGS: Clear. ABDOMEN: Soft, flat and nontender. EXTREMITIES: Without peripheral edema. NEUROLOGIC: Intact. SKIN: Without rash. ASSESSMENT: 1. Acute diverticulitis diarrhea improved. 2. Rectal prolapse. 3. Thrush. 4. Hypokalemia. 5. Paroxysmal atrial fibrillation. 6. Chronic kidney disease, stage 3. PLAN: To follow up with Dr. Robert Pate in 2 weeks or p.r.n. Good pulmonary toilet. We will evaluate p.r.n. or in a.m. Krystal Bernal PA-C /[id number]
[2018-01-24] MEDS: Warfarin 5 MG Tab PO SCH (13:16)
--- NOTE | 2018-01-24 14:13 | PCM.PN ---
- General Info Date of Service: 01/24/18 Subjective Update: Fantasma has noted significant improvement in her abdominal pain over the past 24 hours. Currently tolerating a full liquid diet without significant difficulty. Vital signs have been stable and she has remained afebrile. - Review of Systems General: Denies: Fever, Weakness, Chills Pulmonary: Reports: Shortness of Breath. Denies: Pleuritic Chest Pain, Cough, Sputum, Hemoptysis, Wheezing Cardiovascular: Reports: Dyspnea on Exertion, Edema. Denies: Chest Pain, Palpitations, Orthopnea, PND, Lightheadedness Gastrointestinal: Reports: Abdominal Pain. Denies: Constipation, Diarrhea, Difficulty Swallowing, Melena, Nausea - Patient Data Vitals - Most Recent: Last Vital Signs Temp 97 F 01/24/18 10:50 Pulse 81 01/24/18 10:50 Resp 16 01/24/18 10:50 BP 92/54 L 01/24/18 10:50 Pulse Ox 95 01/24/18 10:50 Weight - Most Recent: 108 lb 4.798 oz I&O - Last 24 Hours: Intake & Output 01/23/18 01/24/18 01/24/18 22:59 06:59 14:59 Intake Total 390 150 100 Output Total 1600 700 Balance -1210 -550 100 Lab Results Last 24 Hours: Laboratory Results - last 24 hr 01/24/18 01/24/18 01/24/18 Range/Units 04:48 04:48 04:48 WBC 4.7 (4.5-11.0) K/uL RBC 3.32 (3.30-5.50) M/uL Hgb 10.2 L (12.0-15.0) g/dL Hct 32.0 L (36.0-48.0) % MCV 96 (80-98) fL MCH 31 (27-31) pg MCHC 32 (32-36) % Plt Count 248 (150-400) K/uL PT 14.4 H (9.5-12.0) sec INR 1.33 H (0.80-1.20) Sodium 142 (140-148) mmol/L Potassium 3.9 (3.6-5.2) mmol/L Chloride 111 H (100-108) mmol/L Carbon Dioxide 24 (21-32) mmol/L Anion Gap 10.9 (5.0-14.0) mmol/L BUN 5 L D (7-18) mg/dL Creatinine 0.7 (0.6-1.0) mg/dL Est Cr Clr Drug Dosing 48.05 mL/min Estimated GFR (MDRD) > 60 (>60) Glucose 87 (74-106) mg/dL Calcium 7.6 L (8.5-10.1) mg/dL Phosphorus 1.5 L (2.5-4.9) mg/dL Magnesium (1.8-2.4) mg/dL Total Bilirubin 0.2 D (0.2-1.0) mg/dL AST 28 (15-37) U/L ALT 10 L (12-78) U/L Alkaline Phosphatase 88 (46-116) U/L Total Protein 4.9 L (6.4-8.2) g/dL Albumin 2.2 L (3.4-5.0) g/dL Globulin 2.7 (2.3-3.5) g/dL Albumin/Globulin Ratio 0.8 L (1.2-2.2) /03/08 Range/Units 04:48 WBC (4.5-11.0) K/uL RBC (3.30-5.50) M/uL Hgb (12.0-15.0) g/dL Hct (36.0-48.0) % MCV (80-98) fL MCH (27-31) pg MCHC (32-36) % Plt Count (150-400) K/uL PT (9.5-12.0) sec INR (0.80-1.20) Sodium (140-148) mmol/L Potassium (3.6-5.2) mmol/L Chloride (100-108) mmol/L Carbon Dioxide (21-32) mmol/L Anion Gap (5.0-14.0) mmol/L BUN (7-18) mg/dL Creatinine (0.6-1.0) mg/dL Est Cr Clr Drug Dosing mL/min Estimated GFR (MDRD) (>60) Glucose (74-106) mg/dL Calcium (8.5-10.1) mg/dL Phosphorus (2.5-4.9) mg/dL Magnesium 2.9 H D (1.8-2.4) mg/dL Total Bilirubin (0.2-1.0) mg/dL AST (15-37) U/L ALT (12-78) U/L Alkaline Phosphatase (46-116) U/L Total Protein (6.4-8.2) g/dL Albumin (3.4-5.0) g/dL Globulin (2.3-3.5) g/dL Albumin/Globulin Ratio (1.2-2.2) Kash Results Last 24 Hours: Microbiology 01/19/18 20:03 Specimen Source - Final Stool / Feces Ova and Parasites - Final - Final Med Orders - Current: Current Medications Acetaminophen (Tylenol Extra Strength) 1,000 mg PO Q8H PRN PRN Reason: Pain Last Admin: 01/24/18 12:22 Dose: 1,000 mg Albuterol (Proventil Neb Soln) 2.5 mg NEB Q4H PRN PRN Reason: Shortness Of Breath/wheezing Albuterol/Ipratropium (Duoneb 3.0-0.5 Mg/3 Ml) 3 ml NEB QIDRT [facility] Last Admin: 01/24/18 11:07 Dose: Not Given Allopurinol (Zyloprim) 150 mg PO DAILY [facility] Last Admin: 01/24/18 08:12 Dose: 150 mg Aspirin (Halfprin) 81 mg PO DAILY [facility] Last Admin: 01/24/18 08:09 Dose: 81 mg Budesonide (Pulmicort) 0.5 mg NEB BIDRT [facility] Last Admin: 01/24/18 07:27 Dose: 0.5 mg Carvedilol (Coreg) 3.125 mg PO BIDAC [facility] Last Admin: 01/24/18 08:11 Dose: 3.125 mg Clotrimazole (Mycelex) 10 mg PO 5XDAY [facility] Last Admin: 01/24/18 10:19 Dose: 10 mg Dimethicone/Zinc Oxide (Rash Relief-Zinc Oxide [place]) 0 gm TOP ASDIRECTED PRN PRN Reason: rectal irritation Furosemide (Lasix) 40 mg PO DAILY [facility] Last Admin: 01/24/18 08:10 Dose: 40 mg Hydromorphone HCl (Dilaudid) 0.5 mg IVPUSH Q2H PRN PRN Reason: Pain Promethazine HCl 12.5 mg/ (Sodium Chloride) 50.5 mls @ 200 mls/hr IV Q6H PRN PRN Reason: Nausea/Vomiting Last Admin: 01/20/18 10:18 Dose: 200 mls/hr Ceftriaxone Sodium 1 gm/ (Sodium Chloride) 50 mls @ 100 mls/hr IV Q24H [facility] Last Admin: 01/24/18 01:41 Dose: 100 mls/hr Metronidazole 500 mg/ Premix 100 mls @ 100 mls/hr IV Q8H [facility] Last Admin: 01/24/18 13:09 Dose: 100 mls/hr Magnesium Sulfate 2 gm/ Premix 50 mls @ 25 mls/hr IV Q6H [facility] Stop: 01/26/18 05:59 Last Admin: 01/24/18 10:53 Dose: Not Given Isosorbide Mononitrate (Imdur) 30 mg PO DAILY [facility] Last Admin: 01/24/18 08:10 Dose: 30 mg Lactobacillus Rhamnosus (Culturelle) 2 cap PO BID [facility] Last Admin: 01/24/18 08:10 Dose: 2 cap Levothyroxine Sodium (Levothyroxine) 75 mcg PO DAILY@0730 [facility] Last Admin: 01/24/18 08:11 Dose: 75 mcg Loperamide HCl (Imodium) 2 mg PO Q4H PRN PRN Reason: Diarrhea Last Admin: 01/22/18 14:09 Dose: 2 mg Lorazepam (Ativan) 0.5 - 1 mg IVPUSH Q4H PRN PRN Reason: Nausea/Vomiting Last Admin: 01/22/18 23:36 Dose: 0.5 mg Magnesium Oxide (Magnesium Oxide) 400 mg PO BID [facility] Last Admin: 01/24/18 08:08 Dose: 400 mg Melatonin (Melatonin) 9 mg PO BEDTIME [facility] Last Admin: 01/23/18 21:44 Dose: 9 mg Ondansetron HCl (Zofran Odt) 4 mg PO Q6H PRN PRN Reason: Nausea able to take PO Ondansetron HCl (Zofran) 4 mg IV Q6H PRN PRN Reason: Nausea/Vomiting Last Admin: 01/23/18 01:36 Dose: 4 mg Oxycodone HCl (Oxycodone) 5 mg PO Q4H PRN PRN Reason: Pain Pantoprazole Sodium (Protonix) 40 mg PO ACBREAKFAST [facility] Last Admin: 01/24/18 08:08 Dose: 40 mg Potassium Chloride (Potassium Chloride) 10 meq PO BID [facility] Last Admin: 01/24/18 08:09 Dose: 10 meq Pravastatin Sodium (Pravachol) 40 mg PO BEDTIME [facility] Last Admin: 01/23/18 21:48 Dose: 40 mg Prednisone (Prednisone) 5 mg PO DAILY@0800 [facility] Prochlorperazine Maleate (Compazine) 10 mg PO Q6H PRN PRN Reason: Nausea/Vomiting Last Admin: 01/21/18 08:12 Dose: 10 mg Theophylline (Theophylline Anhydrous) 300 mg PO DAILY [facility] Last Admin: 01/24/18 08:12 Dose: 300 mg Theophylline (Pablito-24) 100 mg PO DAILY [facility] Last Admin: 01/24/18 08:08 Dose: 100 mg Warfarin Sodium (Coumadin) 5 mg PO DAILY@1300 [facility] Last Admin: 01/24/18 13:16 Dose: 5 mg Discontinued Medications Acetaminophen (Tylenol) 650 mg PO Q4H PRN PRN Reason: Pain (Mild 1-3)/fever Sodium Chloride (Normal Saline) 1,000 mls @ 250 mls/hr IV ASDIRECTED [facility] Last Admin: 01/19/18 20:12 Dose: 250 mls/hr Sodium Chloride (Normal Saline) 100 mls @ 3 mls/sec IV ASDIRECTED [facility] Last Admin: 01/19/18 21:27 Dose: 3 mls/sec Potassium Chloride 20 meq/Lidocaine HCl 2 ml/ Sodium Chloride 112 mls @ 50 mls/ hr IV Q2H [facility] Stop: 01/20/18 04:16 Last Admin: 01/20/18 04:22 Dose: 50 mls/hr Sodium Chloride (Normal Saline) 1,000 mls @ 75 mls/hr IV ASDIRECTED [facility] Last Admin: 01/21/18 21:07 Dose: 75 mls/hr Potassium Chloride (Kcl 20 Meq In Water 100 Ml) Confirm Administered Dose 300 mls @ as directed .ROUTE .STK-MED ONE Stop: 01/19/18 23:20 Last Admin: 01/19/18 23:30 Dose: Not Given Potassium Chloride 20 meq/Lidocaine HCl 2 ml/ Sodium Chloride 112 mls @ 50 mls/ hr IV Q2H [facility] Stop: 01/20/18 12:59 Last Admin: 01/20/18 13:04 Dose: 50 mls/hr Magnesium Sulfate 2 gm/ Premix 50 mls @ 25 mls/hr IV Q6H [facility] Stop: 01/20/18 23:59 Last Admin: 01/20/18 22:01 Dose: 25 mls/hr Potassium Chloride 20 meq/Lidocaine HCl 2 ml/ Sodium Chloride 112 mls @ 50 mls/ hr IV Q2H [facility] Stop: 01/20/18 21:29 Last Admin: 01/20/18 22:53 Dose: 50 mls/hr Potassium Chloride (Kcl 20 Meq In Water 100 Ml) Confirm Administered Dose 200 mls @ as directed .ROUTE .STK-MED ONE Stop: 01/20/18 20:02 Last Admin: 01/20/18 20:10 Dose: Not Given Phytonadione 1 mg/ Sodium (Chloride) 50.5 mls @ 100 mls/hr IV ONETIME ONE Stop: 01/21/18 16:00 Last Admin: 01/21/18 16:05 Dose: 100 mls/hr Potassium Chloride 20 meq/Lidocaine HCl 2 ml/ Sodium Chloride 112 mls @ 56 mls/ hr IV Q2H [facility] Stop: 01/21/18 19:59 Last Admin: 01/21/18 19:40 Dose: 56 mls/hr Potassium Chloride 20 meq/Lidocaine HCl 2 ml/ Sodium Chloride 112 mls @ 50 mls/ hr IV Q2H [facility] Stop: 01/22/18 10:14 Last Admin: 01/22/18 10:57 Dose: 50 mls/hr Potassium Chloride (Kcl 20 Meq In Water 100 Ml) Confirm Administered Dose 100 mls @ as directed .ROUTE .STK-MED ONE Stop: 01/22/18 06:28 Last Admin: 01/22/18 06:44 Dose: Not Given Potassium Chloride 40 meq/ (Premix) 100 mls @ 25 mls/hr IV ONETIME ONE Stop: 01/22/18 12:23 Last Admin: 01/22/18 10:20 Dose: Not Given Magnesium Sulfate 2 gm/ Premix 50 mls @ 25 mls/hr IV ONETIME ONE Stop: 01/22/18 11:59 Last Admin: 01/22/18 10:57 Dose: 25 mls/hr Potassium Acetate 20 meq/ (Sodium Chloride) 110 mls @ 55 mls/hr IV Q2H [facility] Stop: 01/23/18 13:59 Last Admin: 01/23/18 12:15 Dose: 55 mls/hr Magnesium Sulfate 2 gm/ Premix 50 mls @ 25 mls/hr IV ONETIME ONE Stop: 01/23/18 11:59 Iopamidol (Isovue-300 (61%)) 100 ml IV . DIRECTED [facility] Last Admin: 01/19/18 21:27 Dose: 72 ml Lidocaine HCl (Xylocaine-Mpf 1%) Confirm Administered Dose 10 ml .ROUTE .STK- MED ONE Stop: 01/19/18 23:21 Last Admin: 01/19/18 23:30 Dose: Not Given Lidocaine HCl (Xylocaine-Mpf 1%) Confirm Administered Dose 5 ml .ROUTE .STK-MED ONE Stop: 01/20/18 20:03 Last Admin: 01/20/18 20:10 Dose: Not Given Lidocaine HCl (Xylocaine-Mpf 1%) Confirm Administered Dose 5 ml .ROUTE .STK-MED ONE Stop: 01/22/18 06:28 Last Admin: 01/22/18 06:45 Dose: Not Given Magnesium Oxide (Magnesium Oxide) 800 mg PO ONETIME ONE Stop: 01/22/18 06:12 Last Admin: 01/22/18 09:07 Dose: 800 mg Ondansetron HCl (Zofran) 4 mg IVPUSH ONETIME ONE Stop: 01/19/18 20:05 Last Admin: 01/19/18 20:11 Dose: 4 mg Potassium Chloride (Potassium Chloride) 20 meq PO ONETIME ONE Stop: 01/20/18 10:01 Last Admin: 01/20/18 11:34 Dose: 20 meq Potassium Chloride (Klor-Con M20) 40 meq PO ONETIME ONE Stop: 01/22/18 09:01 Last Admin: 01/22/18 09:10 Dose: 40 meq Potassium Chloride (Klor-Con M20) 40 meq PO ONETIME ONE Stop: 01/23/18 10:01 Last Admin: 01/23/18 09:26 Dose: 40 meq Prednisone (Prednisone) 10 mg PO DAILY@0800 [facility] Last Admin: 01/24/18 08:08 Dose: 10 mg Warfarin Sodium (Coumadin) 2.5 mg PO DAILY@1300 [facility] Last Admin: 01/23/18 12:15 Dose: 2.5 mg - Exam Quality Assessment: DVT Prophylaxis General: Alert, Oriented, Cooperative, No Acute Distress Lungs: Decreased Breath Sounds, Wheezing. No: Crackles, Rales, Rhonchi, Rub Cardiovascular: Regular Rate, No Murmurs, Irregular Rhythm GI/Abdominal Exam: Soft, No Organomegaly, Tender. No: Distended, Guarding, Rigid, Rebound Extremities: Non-Tender, No Pedal Edema Skin: Warm, Dry, Intact - Problem List Review Problem List Initiated/Reviewed/Updated: Yes - My Orders Last 24 Hours: My Active Orders 01/23/18 21:00 Melatonin 9 mg PO BEDTIME 01/24/18 11:46 Acetaminophen [Tylenol Extra Strength] 1,000 mg PO Q8H PRN 01/24/18 13:00 Warfarin [Coumadin] 5 mg PO DAILY@1300 01/24/18 Lunch GI Soft Low Fiber [Soft Diet] [DIET] 01/25/18 05:00 INR,PT,PROTHROMBIN TIME [COAG] Timed 01/25/18 08:00 predniSONE 5 mg PO DAILY@0800 - Plan Plan:: ASSESSMENT AND PLAN Acute diverticulitis - abdominal pain has not totally resolved but is significantly improved since yesterday -Soft low residue diet -Pain control -Nausea management -Saline lock IV -Continue IV Zosyn -EGD and colonoscopy could be considered as an outpatient -Consult Dr. 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 INR remains subtherapeutic today -Continue warfarin, increased to 5 mg daily -INR in the morning and warfarin dosing based on INR Chronic kidney disease stage III -Repeat labs in the morning Maintenance issues - - DVT prophylaxis - warfarin - GI prophylaxis - PPI - Nutrition -soft low residue diet Disposition - anticipate discharge home after the hospital stay Primary care physician - Dr. Christianson
[2018-01-24] MEDS: Melatonin 3 MG Tab PO SCH ×2 (21:10→22:39)
[2018-01-24] MEDS: Pravastatin 20 MG Tab PO SCH (21:12)
[2018-01-25] MEDS: cefTRIAXone 1 GM in Sodium Chloride 0.9% 50 ML IV SCH ×2
[2018-01-25] MEDS: Clotrimazole 10 MG Troche PO SCH ×5 (06:23→22:24)
[2018-01-25] MEDS: metroNIDAZOLE/Normal Saline 500 MG in Premix Bag 1 BAG IV SCH (06:23)
[2018-01-25] MEDS: Albuterol/Ipratropium 3.0-0.5 MG/3 ML Neb Soln NEB SCH ×4 (07:17→20:11)
[2018-01-25] MEDS: Budesonide 0.5 MG/2 ML Neb Susp NEB SCH ×2 (07:18→20:13)
[2018-01-25] MEDS: Pantoprazole 40 MG Tab.CR PO SCH (07:47)
[2018-01-25] MEDS: Levothyroxine 75 MCG Tab PO SCH (07:48)
[2018-01-25] MEDS: Carvedilol 3.125 MG Tab PO SCH ×2 (07:48→16:50)
[2018-01-25] MEDS ORDERED: predniSONE 5 MG Tab PO SCH (08:00)
[2018-01-25] MEDS: Acetaminophen 500 MG Tab PO PRN ×2 (10:02→18:22)
[2018-01-25] MEDS: Potassium Chloride 10 MEQ Cap.ER PO SCH ×2 (10:06→20:13)
[2018-01-25] MEDS: Furosemide 40 MG Tab PO SCH (10:06)
[2018-01-25] MEDS: Theophylline 300 MG Tab.ER PO SCH (10:07)
[2018-01-25] MEDS: Aspirin 81 MG Tab.EC PO SCH (10:07)
[2018-01-25] MEDS: Lactobacillus Rhamnosus GG (Probiotic) Cap PO SCH ×2 (10:07→20:11)
[2018-01-25] MEDS: Theophylline 100 MG Cap.ER PO SCH (10:08)
[2018-01-25] MEDS: Isosorbide Mononitrate 30 MG Tab.ER PO SCH (10:11)
[2018-01-25] MEDS: Allopurinol 300 MG Tab PO SCH (10:12)
[2018-01-25] MEDS: Warfarin 5 MG Tab PO SCH (13:17)
--- NOTE | 2018-01-25 13:21 | PCM.PN ---
- General Info Date of Service: 01/25/18 Subjective Update: Fantasma has been stable since yesterday, left lower quadrant abdominal pain has almost totally resolved and she is tolerated a soft diet. Vital signs have been stable and she has remained afebrile. Functional Status: Reports: Pain Controlled, Tolerating Diet, Urinating - Review of Systems General: Reports: Weakness. Denies: Fever, Chills Pulmonary: Reports: Shortness of Breath. Denies: Pleuritic Chest Pain, Cough, Sputum, Hemoptysis, Wheezing Cardiovascular: Reports: Dyspnea on Exertion. Denies: Chest Pain, Palpitations , Orthopnea, PND, Edema, Lightheadedness Gastrointestinal: Reports: No Symptoms - Patient Data Vitals - Most Recent: Last Vital Signs Temp 96.7 F 01/25/18 07:56 Pulse 95 01/25/18 07:56 Resp 20 01/25/18 07:56 BP 115/68 01/25/18 07:56 Pulse Ox 96 01/25/18 07:56 Weight - Most Recent: 108 lb 4.798 oz I&O - Last 24 Hours: Intake & Output 01/24/18 01/25/18 01/25/18 22:59 06:59 14:59 Intake Total 240 50 240 Output Total 900 1200 600 Balance -660 1150 -360 Lab Results Last 24 Hours: Laboratory Results - last 24 hr 01/25/18 Range/Units 05:35 PT 19.0 H (9.5-12.0) sec INR 1.74 H (0.80-1.20) Med Orders - Current: Current Medications Acetaminophen (Tylenol Extra Strength) 1,000 mg PO Q8H PRN PRN Reason: Pain Last Admin: 01/25/18 10:02 Dose: 1,000 mg Albuterol (Proventil Neb Soln) 2.5 mg NEB Q4H PRN PRN Reason: Shortness Of Breath/wheezing Albuterol/Ipratropium (Duoneb 3.0-0.5 Mg/3 Ml) 3 ml NEB QIDRT [facility] Last Admin: 01/25/18 11:37 Dose: Not Given Allopurinol (Zyloprim) 150 mg PO DAILY [facility] Last Admin: 01/25/18 10:12 Dose: 150 mg Aspirin (Halfprin) 81 mg PO DAILY [facility] Last Admin: 01/25/18 10:07 Dose: 81 mg Budesonide (Pulmicort) 0.5 mg NEB BIDRT [facility] Last Admin: 01/25/18 07:18 Dose: 0.5 mg Carvedilol (Coreg) 3.125 mg PO BIDAC [facility] Last Admin: 01/25/18 07:48 Dose: 3.125 mg Cefdinir (Omnicef) 300 mg PO BID [facility] Clotrimazole (Mycelex) 10 mg PO 5XDAY [facility] Last Admin: 01/25/18 10:13 Dose: 10 mg Dimethicone/Zinc Oxide (Rash Relief-Zinc Oxide [place]) 0 gm TOP ASDIRECTED PRN PRN Reason: rectal irritation Furosemide (Lasix) 40 mg PO DAILY [facility] Last Admin: 01/25/18 10:06 Dose: 40 mg Hydromorphone HCl (Dilaudid) 0.5 mg IVPUSH Q2H PRN PRN Reason: Pain Promethazine HCl 12.5 mg/ (Sodium Chloride) 50.5 mls @ 200 mls/hr IV Q6H PRN PRN Reason: Nausea/Vomiting Last Admin: 01/20/18 10:18 Dose: 200 mls/hr Isosorbide Mononitrate (Imdur) 30 mg PO DAILY [facility] Last Admin: 01/25/18 10:11 Dose: Not Given Lactobacillus Rhamnosus (Culturelle) 2 cap PO BID [facility] Last Admin: 01/25/18 10:07 Dose: 2 cap Levothyroxine Sodium (Levothyroxine) 75 mcg PO DAILY@0730 [facility] Last Admin: 01/25/18 07:48 Dose: 75 mcg Loperamide HCl (Imodium) 2 mg PO Q4H PRN PRN Reason: Diarrhea Last Admin: 01/22/18 14:09 Dose: 2 mg Lorazepam (Ativan) 0.5 - 1 mg IVPUSH Q4H PRN PRN Reason: Nausea/Vomiting Last Admin: 01/22/18 23:36 Dose: 0.5 mg Melatonin (Melatonin) 3 mg PO BEDTIME [facility] Metronidazole (Metronidazole) 250 mg PO Q6H [facility] Ondansetron HCl (Zofran Odt) 4 mg PO Q6H PRN PRN Reason: Nausea able to take PO Last Admin: 01/24/18 23:55 Dose: 4 mg Ondansetron HCl (Zofran) 4 mg IV Q6H PRN PRN Reason: Nausea/Vomiting Last Admin: 01/23/18 01:36 Dose: 4 mg Oxycodone HCl (Oxycodone) 5 mg PO Q4H PRN PRN Reason: Pain Pantoprazole Sodium (Protonix) 40 mg PO ACBREAKFAST [facility] Last Admin: 01/25/18 07:47 Dose: 40 mg Potassium Chloride (Potassium Chloride) 10 meq PO BID [facility] Last Admin: 01/25/18 10:06 Dose: 10 meq Pravastatin Sodium (Pravachol) 40 mg PO BEDTIME [facility] Last Admin: 01/24/18 21:12 Dose: 40 mg Prednisone (Prednisone) 2.5 mg PO DAILY@0800 [facility] Prochlorperazine Maleate (Compazine) 10 mg PO Q6H PRN PRN Reason: Nausea/Vomiting Last Admin: 01/21/18 08:12 Dose: 10 mg Theophylline (Theophylline Anhydrous) 300 mg PO DAILY [facility] Last Admin: 01/25/18 10:07 Dose: 300 mg Theophylline (Pablito-24) 100 mg PO DAILY [facility] Last Admin: 01/25/18 10:08 Dose: 100 mg Warfarin Sodium (Coumadin) 5 mg PO DAILY@1300 [facility] Last Admin: 01/25/18 13:17 Dose: 5 mg Discontinued Medications Acetaminophen (Tylenol) 650 mg PO Q4H PRN PRN Reason: Pain (Mild 1-3)/fever Sodium Chloride (Normal Saline) 1,000 mls @ 250 mls/hr IV ASDIRECTED [facility] Last Admin: 01/19/18 20:12 Dose: 250 mls/hr Sodium Chloride (Normal Saline) 100 mls @ 3 mls/sec IV ASDIRECTED [facility] Last Admin: 01/19/18 21:27 Dose: 3 mls/sec Potassium Chloride 20 meq/Lidocaine HCl 2 ml/ Sodium Chloride 112 mls @ 50 mls/ hr IV Q2H [facility] Stop: 01/20/18 04:16 Last Admin: 01/20/18 04:22 Dose: 50 mls/hr Sodium Chloride (Normal Saline) 1,000 mls @ 75 mls/hr IV ASDIRECTED [facility] Last Admin: 01/21/18 21:07 Dose: 75 mls/hr Potassium Chloride (Kcl 20 Meq In Water 100 Ml) Confirm Administered Dose 300 mls @ as directed .ROUTE .STK-MED ONE Stop: 01/19/18 23:20 Last Admin: 01/19/18 23:30 Dose: Not Given Ceftriaxone Sodium 1 gm/ (Sodium Chloride) 50 mls @ 100 mls/hr IV Q24H [facility] Last Admin: 01/25/18 00:00 Dose: 100 mls/hr Metronidazole 500 mg/ Premix 100 mls @ 100 mls/hr IV Q8H [facility] Last Admin: 01/24/18 13:09 Dose: 100 mls/hr Potassium Chloride 20 meq/Lidocaine HCl 2 ml/ Sodium Chloride 112 mls @ 50 mls/ hr IV Q2H [facility] Stop: 01/20/18 12:59 Last Admin: 01/20/18 13:04 Dose: 50 mls/hr Magnesium Sulfate 2 gm/ Premix 50 mls @ 25 mls/hr IV Q6H [facility] Stop: 01/20/18 23:59 Last Admin: 01/20/18 22:01 Dose: 25 mls/hr Potassium Chloride 20 meq/Lidocaine HCl 2 ml/ Sodium Chloride 112 mls @ 50 mls/ hr IV Q2H [facility] Stop: 01/20/18 21:29 Last Admin: 01/20/18 22:53 Dose: 50 mls/hr Potassium Chloride (Kcl 20 Meq In Water 100 Ml) Confirm Administered Dose 200 mls @ as directed .ROUTE .STK-MED ONE Stop: 01/20/18 20:02 Last Admin: 01/20/18 20:10 Dose: Not Given Phytonadione 1 mg/ Sodium (Chloride) 50.5 mls @ 100 mls/hr IV ONETIME ONE Stop: 01/21/18 16:00 Last Admin: 01/21/18 16:05 Dose: 100 mls/hr Potassium Chloride 20 meq/Lidocaine HCl 2 ml/ Sodium Chloride 112 mls @ 56 mls/ hr IV Q2H [facility] Stop: 01/21/18 19:59 Last Admin: 01/21/18 19:40 Dose: 56 mls/hr Potassium Chloride 20 meq/Lidocaine HCl 2 ml/ Sodium Chloride 112 mls @ 50 mls/ hr IV Q2H [facility] Stop: 01/22/18 10:14 Last Admin: 01/22/18 10:57 Dose: 50 mls/hr Potassium Chloride (Kcl 20 Meq In Water 100 Ml) Confirm Administered Dose 100 mls @ as directed .ROUTE .STK-MED ONE Stop: 01/22/18 06:28 Last Admin: 01/22/18 06:44 Dose: Not Given Potassium Chloride 40 meq/ (Premix) 100 mls @ 25 mls/hr IV ONETIME ONE Stop: 01/22/18 12:23 Last Admin: 01/22/18 10:20 Dose: Not Given Magnesium Sulfate 2 gm/ Premix 50 mls @ 25 mls/hr IV ONETIME ONE Stop: 01/22/18 11:59 Last Admin: 01/22/18 10:57 Dose: 25 mls/hr Magnesium Sulfate 2 gm/ Premix 50 mls @ 25 mls/hr IV Q6H [facility] Stop: 01/26/18 05:59 Last Admin: 01/24/18 10:53 Dose: Not Given Potassium Acetate 20 meq/ (Sodium Chloride) 110 mls @ 55 mls/hr IV Q2H [facility] Stop: 01/23/18 13:59 Last Admin: 01/23/18 12:15 Dose: 55 mls/hr Magnesium Sulfate 2 gm/ Premix 50 mls @ 25 mls/hr IV ONETIME ONE Stop: 01/23/18 11:59 Metronidazole 500 mg/ Premix 100 mls @ 100 mls/hr IV Q8HR [facility] Last Admin: 01/25/18 06:23 Dose: 100 mls/hr Iopamidol (Isovue-300 (61%)) 100 ml IV . DIRECTED [facility] Last Admin: 01/19/18 21:27 Dose: 72 ml Lidocaine HCl (Xylocaine-Mpf 1%) Confirm Administered Dose 10 ml .ROUTE .STK- MED ONE Stop: 01/19/18 23:21 Last Admin: 01/19/18 23:30 Dose: Not Given Lidocaine HCl (Xylocaine-Mpf 1%) Confirm Administered Dose 5 ml .ROUTE .STK-MED ONE Stop: 01/20/18 20:03 Last Admin: 01/20/18 20:10 Dose: Not Given Lidocaine HCl (Xylocaine-Mpf 1%) Confirm Administered Dose 5 ml .ROUTE .STK-MED ONE Stop: 01/22/18 06:28 Last Admin: 01/22/18 06:45 Dose: Not Given Magnesium Oxide (Magnesium Oxide) 800 mg PO ONETIME ONE Stop: 01/22/18 06:12 Last Admin: 01/22/18 09:07 Dose: 800 mg Magnesium Oxide (Magnesium Oxide) 400 mg PO BID [facility] Last Admin: 01/24/18 08:08 Dose: 400 mg Melatonin (Melatonin) 9 mg PO BEDTIME [facility] Last Admin: 01/24/18 22:39 Dose: 9 mg Ondansetron HCl (Zofran) 4 mg IVPUSH ONETIME ONE Stop: 01/19/18 20:05 Last Admin: 01/19/18 20:11 Dose: 4 mg Potassium Chloride (Potassium Chloride) 20 meq PO ONETIME ONE Stop: 01/20/18 10:01 Last Admin: 01/20/18 11:34 Dose: 20 meq Potassium Chloride (Klor-Con M20) 40 meq PO ONETIME ONE Stop: 01/22/18 09:01 Last Admin: 01/22/18 09:10 Dose: 40 meq Potassium Chloride (Klor-Con M20) 40 meq PO ONETIME ONE Stop: 01/23/18 10:01 Last Admin: 01/23/18 09:26 Dose: 40 meq Prednisone (Prednisone) 10 mg PO DAILY@0800 [facility] Last Admin: 01/24/18 08:08 Dose: 10 mg Prednisone (Prednisone) 5 mg PO DAILY@0800 [facility] Last Admin: 01/25/18 10:08 Dose: 5 mg Warfarin Sodium (Coumadin) 2.5 mg PO DAILY@1300 [facility] Last Admin: 01/23/18 12:15 Dose: 2.5 mg - Exam Quality Assessment: DVT Prophylaxis General: Alert, Oriented, Cooperative, No Acute Distress Lungs: Clear to Auscultation, Normal Respiratory Effort, Decreased Breath Sounds. No: Wheezing Cardiovascular: Regular Rate, No Murmurs, Irregular Rhythm GI/Abdominal Exam: Soft, Non-Tender, No Organomegaly, No Distention Extremities: Non-Tender, Pedal Edema Skin: Warm, Dry, Intact - Problem List Review Problem List Initiated/Reviewed/Updated: Yes - My Orders Last 24 Hours: My Active Orders 01/24/18 13:00 Warfarin [Coumadin] 5 mg PO DAILY@1300 01/25/18 13:30 metroNIDAZOLE 250 mg PO Q6H 01/25/18 21:00 Cefdinir [Omnicef] 300 mg PO BID Melatonin 3 mg PO BEDTIME 01/26/18 05:00 INR,PT,PROTHROMBIN TIME [[facility]] Timed 04/07/18 08:00 predniSONE 2.5 mg PO DAILY@0800 - Plan Plan:: ASSESSMENT AND PLAN Acute diverticulitis - abdominal pain hasalmost totally resolved -Soft low residue diet -Pain control -Nausea management -Saline lock IV -discontinue Rocephin and IV Flagyl -Omnicef and Flagyl by mouth -EGD and colonoscopy could be considered as an outpatient Thrush-secondary to antibiotic therapy -Mycelex elsie 5 times daily 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 At the present time does not want to consider further evaluation or intervention Hypokalemia - resolved Paroxysmal atrial fibrillation - currently regular rhythm. INR remains subtherapeutic today -Continue warfarin, increased to 5 mg daily -INR in the morning and warfarin dosing based on INR Chronic kidney disease stage III -Repeat labs in the morning Maintenance issues - - DVT prophylaxis - warfarin - GI prophylaxis - PPI - Nutrition -soft low residue diet Disposition - anticipate discharge home after the hospital stay Primary care physician - Dr. Christianson
--- NOTE | 2018-01-25 14:03 | PN ---
DATE OF SERVICE: 01/25/2018 SUBJECTIVE: Dee had a bowel movement yesterday. She is on Flagyl and Rocephin for diverticulitis. She states her rectal prolapse is not bothering her. REVIEW OF SYSTEMS: HEENT: Negative. NECK: Negative. HEART: No chest pain or shortness of breath. LUNGS: No cough. ABDOMEN: As above. EXTREMITIES: Negative. NEURO: No headaches, dizziness, or loss of coordination. PSYCHIATRIC: Negative. SKIN: Negative. Remainder of review of systems negative for any pertinent positives and negatives. OBJECTIVE: GENERAL: Dee Jenkins is a pleasant 82-year-old female. She is alert and orientated. VITAL SIGNS: TPR 96.7, 95, 20, and blood pressure 115/68. HEENT: Negative. NECK: Supple. HEART: Regular rate and rhythm. LUNGS: Clear. ABDOMEN: Soft, flat, and nontender. EXTREMITIES: Without peripheral edema. NEUROLOGIC: Cranial nerves II through XII intact. SKIN: Without rash. PSYCHIATRIC: Mood and affect appropriate. ASSESSMENT: 1. Acute diverticulitis. 2. Rectal prolapse. 3. Thrush. 4. Hypokalemia. 5. Paroxysmal atrial fibrillation. 6. Chronic kidney disease, stage 3. PLAN: 1. Surgery Team to sign off. 2. When discharged, to follow up with Robert Pate MD, on 02/06/2018, at 11:00 a.m. or p.r.n. Krystal Bernal PA-C /[id number]
[2018-01-25] MEDS: metroNIDAZOLE 250 MG Tab PO SCH ×2 (14:30→20:11)
[2018-01-25] MEDS: Pravastatin 20 MG Tab PO SCH (20:13)
[2018-01-25] MEDS: Cefdinir 300 MG Cap PO SCH (20:13)
[2018-01-25] MEDS ORDERED: Melatonin 3 MG Tab PO SCH (21:00)
[2018-01-26] MEDS: metroNIDAZOLE 250 MG Tab PO SCH ×2 (01:04→08:08)
[2018-01-26] MEDS: Prochlorperazine 10 MG Tab PO PRN (02:36)
[2018-01-26] MEDS: Clotrimazole 10 MG Troche PO SCH ×2 (06:07→10:36)
[2018-01-26] MEDS: Budesonide 0.5 MG/2 ML Neb Susp NEB SCH (07:25)
[2018-01-26] MEDS: Albuterol/Ipratropium 3.0-0.5 MG/3 ML Neb Soln NEB SCH ×2 (07:25→10:54)
[2018-01-26 07:49] VITALS: BP 113/52
[2018-01-26] MEDS ORDERED: predniSONE 5 MG Tab PO SCH (08:00)
[2018-01-26] MEDS: Theophylline 100 MG Cap.ER PO SCH (08:06)
[2018-01-26] MEDS: Furosemide 40 MG Tab PO SCH (08:06)
[2018-01-26] MEDS: Levothyroxine 75 MCG Tab PO SCH (08:06)
[2018-01-26] MEDS: Potassium Chloride 10 MEQ Cap.ER PO SCH (08:07)
[2018-01-26] MEDS: Isosorbide Mononitrate 30 MG Tab.ER PO SCH (08:07)
[2018-01-26] MEDS: Cefdinir 300 MG Cap PO SCH (08:07)
[2018-01-26] MEDS: Carvedilol 3.125 MG Tab PO SCH (08:07)
[2018-01-26] MEDS: Pantoprazole 40 MG Tab.CR PO SCH (08:08)
[2018-01-26] MEDS: Lactobacillus Rhamnosus GG (Probiotic) Cap PO SCH (08:08)
[2018-01-26] MEDS: Aspirin 81 MG Tab.EC PO SCH (08:08)
[2018-01-26] MEDS: Theophylline 300 MG Tab.ER PO SCH (08:09)
[2018-01-26] MEDS: Allopurinol 300 MG Tab PO SCH (08:09)
[2018-01-26] MEDS: Acetaminophen 500 MG Tab PO PRN (11:57)
--- NOTE | 2018-01-26 12:57 | PCM.DCSUM1 ---
Discharge Summary - Hospital Course Brief History: Fantasma is an 82-year-old woman who was admitted through the emergency department with left lower quadrant abdominal pain and fever secondary to diverticulitis. - Discharge Data Discharge Date: 01/26/18 Discharge Disposition: Home, Self-Care 01 Condition: Fair - Discharge Diagnosis/Problem(s) (1) Acute diverticulitis SNOMED Code(s): 970624101 ICD Code: K57.92 - DVTRCLI OF INTEST, PART UNSP, W/O PERF OR ABSCESS W/O BLEED Status: Acute Current Visit: Yes (2) Pancreatic lesion SNOMED Code(s): 3366131 ICD Code: K86.9 - DISEASE OF PANCREAS, UNSPECIFIED Status: Acute Current Visit: Yes (3) Chronic kidney disease, stage III (moderate) SNOMED Code(s): 419165146 ICD Code: N18.3 - CHRONIC KIDNEY DISEASE, STAGE 3 (MODERATE) Status: Chronic Current Visit: No (4) Paroxysmal atrial fibrillation SNOMED Code(s): 699449187 ICD Code: I48.0 - PAROXYSMAL ATRIAL FIBRILLATION Status: Chronic Priority : Medium Current Visit: No - Patient Summary/Data Consults: Consultations 01/21/18 08:00 Consult to Case Management [CONS] Routine Comment: Physician Instructions: Quantity: 01/22/18 12:27 Consult to Physician [CONS] Routine Consulting Provider: Robert Pate Call Completed to Consulting Physician: Yes Reason for Consult: Rectal prolapse Hospital Course: Fantasma presented to the emergency room on the day of admission with persistent left lower quadrant abdominal pain, nausea and diarrhea. Symptoms have not really improved much and have actually gotten worse since her last hospital stay. She has nausea present much of the day but has not done much in the way of vomiting. She has not been able to eat any food because of her nausea. She is able to keep fluids down but has no appetite to try to eat or drink anything. She has several episodes of diarrhea per day described as a mucus- like stool. She also has some soft stools. She describes her abdominal pain as moderate to moderately severe achy abdominal pain. It does not radiate. Worse with any sort of pressure and trying to eat or better when she doesn't eat. No complaints of shortness of breath but she does have a mild cough. No change in bladder habits.Workup in the emergency room revealed significant hypokalemia with a potassium of 2.3. She will need hydration with her diarrhea and anorexia and further workup for her persistent abdominal pain and diarrhea. CT scan of the abdomen and pelvis was obtained and showed evidence of left sided diverticulitis is the likely cause of her ongoing symptoms, white blood cell count was found to be elevated. She was admitted to the hospital and given IV fluids for hydration, clear liquid diet, and IV antibiotic therapy with ceftriaxone and Flagyl. These antibiotics were used because of her history of intolerance or reaction to penicillins and levofloxacin. She did develop transient atrial fibrillation during hospital stay but this had resolved by the time of discharge. Hypokalemia was corrected with IV and oral potassium replacement, by the time of discharge potassium level was within normal range. She has a history of long- term oral anticoagulation, warfarin was continued during hospital stay and INR was found to be within therapeutic range on discharge. She very slowly improved through her hospital stay and by the time of discharge her pain had totally resolved with normalization of her white count and no significant temperature elevations. She was seen and evaluated during hospitalization by Dr. Pate because of her ongoing difficulty with rectal prolapse. Follow-up appointment will be scheduled with Dr. Pate in approximately 11 days after discharge, colonoscopy should be considered in the next 2-4 weeks for follow-up of the diverticulitis. She has been instructed to take a probiotic at least twice daily. Activity will be as tolerated and she will be on a soft low residue diet. Follow-up appointment will be scheduled with her primary care provider within one week. Follow-up INR should be obtained on January 29. - Patient Instructions Diet: GI Soft/Low Residue/Low Fiber Activity: As Tolerated Other/Special Instructions: Follow-up appointment with Dr. Pate on February 06. Please schedule a follow-up appointment with primary care provider Dr. Christianson within one week. She should have colonoscopy for follow-up of diverticulitis in 2-4 weeks. Follow-up INR in the Coumadin clinic on January 29. - Discharge Plan Prescriptions/Med Rec: Cefdinir [IJD: Cefdinir] 300 mg PO BID #14 capsule Clotrimazole [Mycelex] 10 mg PO 5XDAY #50 elsie metroNIDAZOLE 250 mg PO Q6H #28 tablet Home Medications: Home Meds Albuterol [Ventolin HFA] 2 puff INH Q4H PRN 03/13/14 [History] Allopurinol [Zyloprim] 150 mg PO DAILY 03/13/14 [History] Aspirin [Adult Low Dose Aspirin EC] 81 mg PO DAILY 03/13/14 [History] Budesonide [Pulmicort] 2 ml NEB BID 03/13/14 [History] Furosemide [Lasix] 40 mg PO DAILY PRN 03/13/14 [History] Ipratropium/Albuterol Sulfate [Duoneb 0.5 mg-3 mg/3 ml Soln] 3 ml NEB Q4HR PRN 03/13/14 [History] Isosorbide Mononitrate [Imdur] 30 mg PO DAILY 03/13/14 [History] Levothyroxine 75 mcg PO DAILY 03/13/14 [History] Potassium Chloride 10 meq PO DAILY 03/13/14 [History] Pravastatin [Pravachol] 40 mg PO BEDTIME 03/13/14 [History] Theophylline [Theophylline Anhydrous] 400 mg PO DAILY 03/13/14 [History] predniSONE [Prednisone] 2.5 mg PO DAILY 03/13/14 [History] Nitroglycerin [Nitrostat] 0.4 mg SL Q5M PRN 04/10/16 [History] Carvedilol 3.125 mg PO BIDAC 12/19/17 [History] Pantoprazole [ProTONIX] 40 mg PO DAILY 12/19/17 [History] Warfarin [Coumadin] 1.25 mg PO ASDIRECTED 12/19/17 [History] Warfarin [Coumadin] 2.5 mg PO DAILY 12/19/17 [History] Codeine/guaiFENesin [Robitussin AC] 10 ml PO Q4H PRN #8 oz 12/25/17 [Rx] Cefdinir [IJD: Cefdinir] 300 mg PO BID #14 capsule 01/26/18 [Rx] Clotrimazole [Mycelex] 10 mg PO 5XDAY #50 elsie 01/26/18 [Rx] metroNIDAZOLE 250 mg PO Q6H #28 tablet 01/26/18 [Rx] Referrals: Uli Christianson MD [Primary Care Provider] - Robert Pate MD [Physician] - 02/06/18 9:00 am - Discharge Summary/Plan Comment DC Time >30 min.: No - Patient Data Vitals - Most Recent: Last Vital Signs Temp 96.7 F 01/26/18 07:40 Pulse 102 H 01/26/18 08:07 Resp 16 01/26/18 07:40 BP 113/52 L 01/26/18 08:07 Pulse Ox 98 01/26/18 07:40 Weight - Most Recent: 108 lb 4.798 oz I&O - Last 24 hours: Intake & Output 01/25/18 01/26/18 01/26/18 22:59 06:59 14:59 Intake Total 600 Output Total 400 900 Balance 200 -900 Lab Results - Last 24 hrs: Laboratory Results - last 24 hr 01/26/18 Range/Units 05:35 PT 27.4 H (9.5-12.0) sec INR 2.47 H (0.80-1.20) Med Orders - Current: Current Medications Acetaminophen (Tylenol Extra Strength) 1,000 mg PO Q8H PRN PRN Reason: Pain Last Admin: 01/26/18 11:57 Dose: 1,000 mg Albuterol (Proventil Neb Soln) 2.5 mg NEB Q4H PRN PRN Reason: Shortness Of Breath/wheezing Albuterol/Ipratropium (Duoneb 3.0-0.5 Mg/3 Ml) 3 ml NEB QIDRT [facility] Last Admin: 01/26/18 10:54 Dose: Not Given Allopurinol (Zyloprim) 150 mg PO DAILY [facility] Last Admin: 01/26/18 08:09 Dose: 150 mg Aspirin (Halfprin) 81 mg PO DAILY [facility] Last Admin: 01/26/18 08:08 Dose: 81 mg Budesonide (Pulmicort) 0.5 mg NEB BIDRT [facility] Last Admin: 01/26/18 07:25 Dose: 0.5 mg Carvedilol (Coreg) 3.125 mg PO BIDAC [facility] Last Admin: 01/26/18 08:07 Dose: 3.125 mg Cefdinir (Omnicef) 300 mg PO BID [facility] Last Admin: 01/26/18 08:07 Dose: 300 mg Clotrimazole (Mycelex) 10 mg PO 5XDAY [facility] Last Admin: 01/26/18 10:36 Dose: Not Given Dimethicone/Zinc Oxide (Rash Relief-Zinc Oxide Julian) 0 gm TOP ASDIRECTED PRN PRN Reason: rectal irritation Furosemide (Lasix) 40 mg PO DAILY [facility] Last Admin: 01/26/18 08:06 Dose: 40 mg Hydromorphone HCl (Dilaudid) 0.5 mg IVPUSH Q2H PRN PRN Reason: Pain Promethazine HCl 12.5 mg/ (Sodium Chloride) 50.5 mls @ 200 mls/hr IV Q6H PRN PRN Reason: Nausea/Vomiting Last Admin: 01/20/18 10:18 Dose: 200 mls/hr Isosorbide Mononitrate (Imdur) 30 mg PO DAILY [facility] Last Admin: 01/26/18 08:07 Dose: 30 mg Lactobacillus Rhamnosus (Culturelle) 2 cap PO BID [facility] Last Admin: 01/26/18 08:08 Dose: 2 cap Levothyroxine Sodium (Levothyroxine) 75 mcg PO DAILY@0730 [facility] Last Admin: 01/26/18 08:06 Dose: 75 mcg Loperamide HCl (Imodium) 2 mg PO Q4H PRN PRN Reason: Diarrhea Last Admin: 01/22/18 14:09 Dose: 2 mg Lorazepam (Ativan) 0.5 - 1 mg IVPUSH Q4H PRN PRN Reason: Nausea/Vomiting Last Admin: 01/22/18 23:36 Dose: 0.5 mg Melatonin (Melatonin) 3 mg PO BEDTIME [facility] Last Admin: 01/26/18 03:24 Dose: Not Given Metronidazole (Metronidazole) 250 mg PO Q6H [facility] Last Admin: 01/26/18 08:08 Dose: 250 mg Ondansetron HCl (Zofran Odt) 4 mg PO Q6H PRN PRN Reason: Nausea able to take PO Last Admin: 01/24/18 23:55 Dose: 4 mg Ondansetron HCl (Zofran) 4 mg IV Q6H PRN PRN Reason: Nausea/Vomiting Last Admin: 01/23/18 01:36 Dose: 4 mg Oxycodone HCl (Oxycodone) 5 mg PO Q4H PRN PRN Reason: Pain Pantoprazole Sodium (Protonix) 40 mg PO ACBREAKFAST [facility] Last Admin: 01/26/18 08:08 Dose: 40 mg Potassium Chloride (Potassium Chloride) 10 meq PO BID [facility] Last Admin: 01/26/18 08:07 Dose: 10 meq Pravastatin Sodium (Pravachol) 40 mg PO BEDTIME [facility] Last Admin: 01/25/18 20:13 Dose: 40 mg Prednisone (Prednisone) 2.5 mg PO DAILY@0800 [facility] Last Admin: 01/26/18 08:08 Dose: 2.5 mg Prochlorperazine Maleate (Compazine) 10 mg PO Q6H PRN PRN Reason: Nausea/Vomiting Last Admin: 01/26/18 02:36 Dose: 10 mg Theophylline (Theophylline Anhydrous) 300 mg PO DAILY [facility] Last Admin: 01/26/18 08:09 Dose: 300 mg Theophylline (Pablito-24) 100 mg PO DAILY [facility] Last Admin: 01/26/18 08:06 Dose: 100 mg Discontinued Medications Acetaminophen (Tylenol) 650 mg PO Q4H PRN PRN Reason: Pain (Mild 1-3)/fever Sodium Chloride (Normal Saline) 1,000 mls @ 250 mls/hr IV ASDIRECTED [facility] Last Admin: 01/19/18 20:12 Dose: 250 mls/hr Sodium Chloride (Normal Saline) 100 mls @ 3 mls/sec IV ASDIRECTED [facility] Last Admin: 01/19/18 21:27 Dose: 3 mls/sec Potassium Chloride 20 meq/Lidocaine HCl 2 ml/ Sodium Chloride 112 mls @ 50 mls/ hr IV Q2H [facility] Stop: 01/20/18 04:16 Last Admin: 01/20/18 04:22 Dose: 50 mls/hr Sodium Chloride (Normal Saline) 1,000 mls @ 75 mls/hr IV ASDIRECTED [facility] Last Admin: 01/21/18 21:07 Dose: 75 mls/hr Potassium Chloride (Kcl 20 Meq In Water 100 Ml) Confirm Administered Dose 300 mls @ as directed .ROUTE .STK-MED ONE Stop: 01/19/18 23:20 Last Admin: 01/19/18 23:30 Dose: Not Given Ceftriaxone Sodium 1 gm/ (Sodium Chloride) 50 mls @ 100 mls/hr IV Q24H [facility] Last Admin: 01/25/18 00:00 Dose: 100 mls/hr Metronidazole 500 mg/ Premix 100 mls @ 100 mls/hr IV Q8H [facility] Last Admin: 01/24/18 13:09 Dose: 100 mls/hr Potassium Chloride 20 meq/Lidocaine HCl 2 ml/ Sodium Chloride 112 mls @ 50 mls/ hr IV Q2H [facility] Stop: 01/20/18 12:59 Last Admin: 01/20/18 13:04 Dose: 50 mls/hr Magnesium Sulfate 2 gm/ Premix 50 mls @ 25 mls/hr IV Q6H [facility] Stop: 01/20/18 23:59 Last Admin: 01/20/18 22:01 Dose: 25 mls/hr Potassium Chloride 20 meq/Lidocaine HCl 2 ml/ Sodium Chloride 112 mls @ 50 mls/ hr IV Q2H [facility] Stop: 01/20/18 21:29 Last Admin: 01/20/18 22:53 Dose: 50 mls/hr Potassium Chloride (Kcl 20 Meq In Water 100 Ml) Confirm Administered Dose 200 mls @ as directed .ROUTE .STK-MED ONE Stop: 01/20/18 20:02 Last Admin: 01/20/18 20:10 Dose: Not Given Phytonadione 1 mg/ Sodium (Chloride) 50.5 mls @ 100 mls/hr IV ONETIME ONE Stop: 01/21/18 16:00 Last Admin: 01/21/18 16:05 Dose: 100 mls/hr Potassium Chloride 20 meq/Lidocaine HCl 2 ml/ Sodium Chloride 112 mls @ 56 mls/ hr IV Q2H [facility] Stop: 01/21/18 19:59 Last Admin: 01/21/18 19:40 Dose: 56 mls/hr Potassium Chloride 20 meq/Lidocaine HCl 2 ml/ Sodium Chloride 112 mls @ 50 mls/ hr IV Q2H [facility] Stop: 01/22/18 10:14 Last Admin: 01/22/18 10:57 Dose: 50 mls/hr Potassium Chloride (Kcl 20 Meq In Water 100 Ml) Confirm Administered Dose 100 mls @ as directed .ROUTE .STK-MED ONE Stop: 01/22/18 06:28 Last Admin: 01/22/18 06:44 Dose: Not Given Potassium Chloride 40 meq/ (Premix) 100 mls @ 25 mls/hr IV ONETIME ONE Stop: 01/22/18 12:23 Last Admin: 01/22/18 10:20 Dose: Not Given Magnesium Sulfate 2 gm/ Premix 50 mls @ 25 mls/hr IV ONETIME ONE Stop: 01/22/18 11:59 Last Admin: 01/22/18 10:57 Dose: 25 mls/hr Magnesium Sulfate 2 gm/ Premix 50 mls @ 25 mls/hr IV Q6H [facility] Stop: 01/26/18 05:59 Last Admin: 01/24/18 10:53 Dose: Not Given Potassium Acetate 20 meq/ (Sodium Chloride) 110 mls @ 55 mls/hr IV Q2H [facility] Stop: 01/23/18 13:59 Last Admin: 01/23/18 12:15 Dose: 55 mls/hr Magnesium Sulfate 2 gm/ Premix 50 mls @ 25 mls/hr IV ONETIME ONE Stop: 01/23/18 11:59 Metronidazole 500 mg/ Premix 100 mls @ 100 mls/hr IV Q8HR [facility] Last Admin: 01/25/18 06:23 Dose: 100 mls/hr Iopamidol (Isovue-300 (61%)) 100 ml IV . DIRECTED [facility] Last Admin: 01/19/18 21:27 Dose: 72 ml Lidocaine HCl (Xylocaine-Mpf 1%) Confirm Administered Dose 10 ml .ROUTE .STK- MED ONE Stop: 01/19/18 23:21 Last Admin: 01/19/18 23:30 Dose: Not Given Lidocaine HCl (Xylocaine-Mpf 1%) Confirm Administered Dose 5 ml .ROUTE .STK-MED ONE Stop: 01/20/18 20:03 Last Admin: 01/20/18 20:10 Dose: Not Given Lidocaine HCl (Xylocaine-Mpf 1%) Confirm Administered Dose 5 ml .ROUTE .STK-MED ONE Stop: 01/22/18 06:28 Last Admin: 01/22/18 06:45 Dose: Not Given Magnesium Oxide (Magnesium Oxide) 800 mg PO ONETIME ONE Stop: 01/22/18 06:12 Last Admin: 01/22/18 09:07 Dose: 800 mg Magnesium Oxide (Magnesium Oxide) 400 mg PO BID [facility] Last Admin: 01/24/18 08:08 Dose: 400 mg Melatonin (Melatonin) 9 mg PO BEDTIME [facility] Last Admin: 01/24/18 22:39 Dose: 9 mg Ondansetron HCl (Zofran) 4 mg IVPUSH ONETIME ONE Stop: 01/19/18 20:05 Last Admin: 01/19/18 20:11 Dose: 4 mg Potassium Chloride (Potassium Chloride) 20 meq PO ONETIME ONE Stop: 01/20/18 10:01 Last Admin: 01/20/18 11:34 Dose: 20 meq Potassium Chloride (Klor-Con M20) 40 meq PO ONETIME ONE Stop: 01/22/18 09:01 Last Admin: 01/22/18 09:10 Dose: 40 meq Potassium Chloride (Klor-Con M20) 40 meq PO ONETIME ONE Stop: 01/23/18 10:01 Last Admin: 01/23/18 09:26 Dose: 40 meq Prednisone (Prednisone) 10 mg PO DAILY@0800 [facility] Last Admin: 01/24/18 08:08 Dose: 10 mg Prednisone (Prednisone) 5 mg PO DAILY@0800 [facility] Last Admin: 01/25/18 10:08 Dose: 5 mg Warfarin Sodium (Coumadin) 2.5 mg PO DAILY@1300 [facility] Last Admin: 01/23/18 12:15 Dose: 2.5 mg Warfarin Sodium (Coumadin) 5 mg PO DAILY@1300 [facility] Last Admin: 01/25/18 13:17 Dose: 5 mg - Exam General: Reports: Alert, Oriented, Cooperative, No Acute Distress Lungs: Reports: Decreased Breath Sounds. Denies: Rales, Rhonchi, Wheezing Cardiovascular: Reports: Regular Rate, Regular Rhythm, No Murmurs GI/Abdominal Exam: Soft, Non-Tender, No Organomegaly, No Distention Extremities: Non-Tender, Pedal Edema Skin: Reports: Warm, Dry, Intact
== END 2018-01-26 13:19 | disposition home or self-care (01) | DRG 392 ==
LOC: JP.ED 18:55 → JP.MS 21:04
PROVIDERS: ADMIT Internal Medicine; ATTEND Hospitalist
DX: R10.84 Generalized abdominal pain (principal); K57.32 Diverticulitis of large intestine without perforation or abscess without bleeding; B37.0 Candidal stomatitis; K86.9 Disease of pancreas, unspecified; E87.6 Hypokalemia; N18.3 Chronic kidney disease, stage 3 (moderate); Z87.891 Personal history of nicotine dependence; I48.0 Paroxysmal atrial fibrillation; J44.9 Chronic obstructive pulmonary disease, unspecified; E03.9 Hypothyroidism, unspecified; R19.7 Diarrhea, unspecified; R11.0 Nausea; Z79.01 Long term (current) use of anticoagulants; K62.3 Rectal prolapse; E83.42 Hypomagnesemia; I20.9 Angina pectoris, unspecified; Z86.73 Personal history of transient ischemic attack (TIA), and cerebral infarction without residual deficits; K21.9 Gastro-esophageal reflux disease without esophagitis; Z87.01 Personal history of pneumonia (recurrent); Z95.0 Presence of cardiac pacemaker; H54.7 Unspecified visual loss; H91.90 Unspecified hearing loss, unspecified ear; Z79.82 Long term (current) use of aspirin; Z79.52 Long term (current) use of systemic steroids; Z88.1 Allergy status to other antibiotic agents
CPT/HCPCS: 36415; 80053; 83690; 85025; 87046; 87177; 87209; 87899 ×2; 96361; 96374; 99284; 99285; J2405; J7040; 74177; 80048; 83735; 84100; 84132; 84443; 85027; 85610; 86140; 87493; 94640; A9270-GY; J0696; J2060; J2550; J3430; J3475; J3480; J3490; J7030; J7050; J7620; Q9967

== ENCOUNTER 2018-02-14 07:30 | Inpatient (IN) | payer MEDICARE, BC ==
[2018-02-14] MEDS ORDERED: Scopolamine 1.5 MG Transdermal Patch TOP ONE (08:15)
[2018-02-14] MEDS ORDERED: Acetaminophen 500 MG Tab PO ONE (08:15)
[2018-02-14] MEDS ORDERED: Neomycin/Polymyxin B 1 ML, Sodium Chloride 0.9% 500 ML IRR ONE ×2 (08:15)
[2018-02-14] MEDS ORDERED: cefOXitin 2 GM Vial ONE (08:43)
[2018-02-14] MEDS ORDERED: Meropenem 500 MG SDV ONE (08:43)
[2018-02-14] MEDS ORDERED: Dextrose 5%-Lactated Ringers 1,000 ML IV SCH ×2 (09:15→17:00)
[2018-02-14] MEDS ORDERED: Succinylcholine 200 MG/10 ML MDV ONE (09:35)
[2018-02-14] MEDS ORDERED: Glycopyrrolate 0.2 MG/ML 5 ML MDV ONE (09:35)
[2018-02-14] MEDS ORDERED: Ondansetron 4 MG/2 ML SDV ONE (09:35)
[2018-02-14] MEDS ORDERED: Dexamethasone 4 MG/ML SDV ONE (09:35)
[2018-02-14] MEDS ORDERED: Neostigmine Methylsulfate 1 MG/ML 5 ML Syringe ONE (09:35)
[2018-02-14] MEDS ORDERED: Rocuronium 50 MG/5 ML Vial ONE (09:35)
[2018-02-14] MEDS ORDERED: Propofol 200 MG/20 ML SDV ONE (09:35)
[2018-02-14] MEDS ORDERED: fentaNYL 250 MCG/5 ML SDV ONE (09:35)
[2018-02-14] MEDS ORDERED: Meropenem 500 MG in Sodium Chloride 0.9% 50 ML IV ONE (09:45)
[2018-02-14] MEDS ORDERED: Albuterol/Ipratropium 3.0-0.5 MG/3 ML Neb Soln NEB ONE (09:45)
[2018-02-14] MEDS ORDERED: Ropivacaine 25 ML, Dexamethasone 8 MG, EPINEPHrine 0.4 MG, Sodium Chloride 0.9% 52.6 ML NERVRT SCH ×4 (10:00)
[2018-02-14] MEDS ORDERED: Ketamine 500 MG/5 ML MDV IV SCH (10:00)
[2018-02-14] MEDS ORDERED: Naloxone 0.4 MG/ML SDV IVPUSH PRN (12:12)
[2018-02-14] MEDS ORDERED: fentaNYL 2,500 MCG in Sodium Chloride 0.9% 200 ML EPIDUR SCH (13:00)
[2018-02-14] MEDS ORDERED: ePHEDrine 50 MG/ML SDV ONE (13:49)
[2018-02-14] MEDS ORDERED: Glucagon,Human Recombinant 1 MG Vial ONE (14:25)
[2018-02-14] MEDS ORDERED: Lactated Ringers 1,000 ML ONE (14:37)
[2018-02-14] MEDS ORDERED: diphenhydrAMINE 50 MG/ML SDV IVPUSH PRN ×2 (15:52→16:45)
[2018-02-14] MEDS ORDERED: Naloxone 0.4 MG/ML SDV IV PRN (16:45)
[2018-02-14] MEDS ORDERED: Albuterol/Ipratropium 3.0-0.5 MG/3 ML Neb Soln INH PRN (17:02)
[2018-02-14] MEDS ORDERED: Nitroglycerin 0.4 MG Tab.SL SL PRN (17:02)
[2018-02-14] MEDS: Ondansetron 4 MG/2 ML SDV IVPUSH PRN (17:25)
[2018-02-14] MEDS: Pantoprazole 40 MG Vial IV SCH (17:32)
[2018-02-14] MEDS: hydrOXYzine HCl 100 MG/2 ML SDV IM PRN (18:29)
[2018-02-14] MEDS: cefOXitin 2 GM in Sodium Chloride 0.9% 50 ML IV SCH (19:48)
[2018-02-14] MEDS: Dextrose 5%-Lactated Ringers 1,000 ML IV SCH (19:48)
[2018-02-14] MEDS: Carvedilol 3.125 MG Tab PO SCH (21:23)
[2018-02-14] MEDS: Acetaminophen 325 MG Tab PO SCH (21:23)
[2018-02-14] MEDS: Albuterol/Ipratropium 3.0-0.5 MG/3 ML Neb Soln INH SCH (21:28)
[2018-02-14] MEDS: Budesonide 0.5 MG/2 ML Neb Susp INH SCH (21:28)
[2018-02-15] MEDS: Acetaminophen 325 MG Tab PO SCH ×4 (02:48→19:31)
[2018-02-15] MEDS: Dextrose 5%-Lactated Ringers 1,000 ML IV SCH (02:48)
[2018-02-15] MEDS: cefOXitin 2 GM in Sodium Chloride 0.9% 50 ML IV SCH ×4 (02:48→19:31)
[2018-02-15] MEDS ORDERED: D5 1/2 NS w/ 20 mEq/L KCl 1,000 ML IV SCH (08:15)
[2018-02-15] MEDS: Theophylline 100 MG Cap.ER PO SCH (08:27)
[2018-02-15] MEDS: Furosemide 40 MG Tab PO SCH (08:27)
[2018-02-15] MEDS: Levothyroxine 75 MCG Tab PO SCH (08:28)
[2018-02-15] MEDS: Allopurinol 300 MG Tab PO SCH (08:28)
[2018-02-15] MEDS: Aspirin 81 MG Tab.EC PO SCH (08:28)
[2018-02-15] MEDS: Carvedilol 3.125 MG Tab PO SCH ×2 (08:29→18:00)
[2018-02-15] MEDS: Isosorbide Mononitrate 30 MG Tab.ER PO SCH (08:30)
[2018-02-15] MEDS: Budesonide 0.5 MG/2 ML Neb Susp INH SCH ×2 (09:10→21:26)
[2018-02-15] MEDS: Albuterol/Ipratropium 3.0-0.5 MG/3 ML Neb Soln INH SCH ×4 (09:10→21:26)
--- NOTE | 2018-02-15 09:50 | PN ---
DATE OF SERVICE: 02/15/2018 SUBJECTIVE: Dee reports her pain is controlled. She is sleepy. Vital signs have been stable. REVIEW OF SYSTEMS: Remainder of review of systems negative for any pertinent positives and negatives. LABORATORY DATA: Labs from yesterday; potassium 3.3, hemoglobin 12.9, PT 12, and INR 1.12. PHYSICAL EXAMINATION: GENERAL: Dee Jenkins is an 82-year-old female. She is alert and orientated, but sleepy. VITAL SIGNS: 98.4, 82, 16. Blood pressure 132/68. HEENT: Negative. NECK: Supple. HEART: Regular rate and rhythm. LUNGS: Clear. ABDOMEN: Dressings dry and intact. ESME drain put out 115 mL of a light red drainage. Her Vega catheter had 683 mL out. EXTREMITIES: SCDs are on and there is no peripheral edema. ASSESSMENT: Exploratory laparotomy, drainage of pericolonic abscess, rectosigmoid colon resection and coloproctectomy and rectopexy for recurrent sigmoid colon diverticulitis with focal pericolonic abscess and rectal prolapse. Date of surgery 02/14/2018, Robert Pate MD. PLAN: 1. Schedule and have consent signed for delayed primary closure TAP block, IV and local sedation, Sunday02/16/2018 at 07:30, Robert Pate MD, n.p.o. after midnight. 2. Ensure 3 cartons t.i.d. regular diet. 3. BMP, CBC, mag, phos, and BNP in a.m. at 0400 hours. 4. Bisacodyl (Dulcolax) tablets 10 mg p.o. b.i.d., senna 8.6 mg take two p.o. at bedtime, ibuprofen 400 mg q.6 hours scheduled for pain, D5 one-half normal saline with 20 mEq KCl at 100 mL per hour. 5. Discontinue D5 LR. 6. Restart prednisone 2.5 mg p.o. daily. 7. Check INR/PT today. 8. Check series of INR and PT for 5 days. 9. Good pulmonary toilet. 10.We will evaluate p.r.n. or in a.m. rKystal Bernal PA-C /[id number]
[2018-02-15] MEDS: Ibuprofen 400 MG Tab PO SCH ×3 (10:33→21:24)
[2018-02-15] MEDS: predniSONE 5 MG Tab PO SCH (10:33)
[2018-02-15] MEDS: Bisacodyl 5 MG Tab PO SCH ×2 (10:33→21:23)
[2018-02-15] MEDS: NALOXONE IV SCH (15:54)
[2018-02-15] MEDS: 1/2 NS W IV SCH (15:54)
[2018-02-15] MEDS: D5 IV SCH (15:54)
[2018-02-15] MEDS: KCL IV SCH (15:54)
[2018-02-15] MEDS: Pantoprazole 40 MG Vial IV SCH (18:21)
[2018-02-15] MEDS ORDERED: Sennosides 8.6 MG Tab PO SCH (21:00)
[2018-02-16] MEDS: cefOXitin 2 GM in Sodium Chloride 0.9% 50 ML IV SCH ×4 (01:41→20:16)
[2018-02-16] MEDS: Acetaminophen 325 MG Tab PO SCH ×4 (01:42→20:16)
[2018-02-16] MEDS: Ibuprofen 400 MG Tab PO SCH ×4 (03:18→20:19)
[2018-02-16] MEDS: D5 IV SCH (04:38)
[2018-02-16] MEDS: 1/2 NS W IV SCH (04:38)
[2018-02-16] MEDS: NALOXONE IV SCH (04:38)
[2018-02-16] MEDS: KCL IV SCH (04:38)
[2018-02-16] MEDS: Ondansetron 4 MG/2 ML SDV IVPUSH PRN ×2 (04:45→08:49)
[2018-02-16] MEDS ORDERED: Meropenem 500 MG SDV ONE (06:44)
[2018-02-16] MEDS ORDERED: Lidocaine 1% with EPINEPHrine 1:100,000 50 ML MDV ONE (06:44)
[2018-02-16] MEDS ORDERED: Bupivacaine 0.5% 50 ML MDV ONE (06:44)
[2018-02-16] MEDS ORDERED: Propofol 200 MG/20 ML SDV ONE (07:09)
[2018-02-16] MEDS ORDERED: fentaNYL 100 MCG/2 ML SDV ONE (07:09)
[2018-02-16] MEDS ORDERED: Ropivacaine 25 ML, Dexamethasone 8 MG, EPINEPHrine 0.4 MG, Sodium Chloride 0.9% 52.6 ML NERVRT SCH ×4 (07:45)
[2018-02-16] MEDS: Budesonide 0.5 MG/2 ML Neb Susp INH SCH ×2 (08:54→20:19)
[2018-02-16] MEDS: Albuterol/Ipratropium 3.0-0.5 MG/3 ML Neb Soln INH SCH ×4 (08:54→20:17)
[2018-02-16] MEDS: D5 1/2 NS w/ 20 mEq/L KCl 1,000 ML IV SCH (10:09)
[2018-02-16] MEDS: Bisacodyl 5 MG Tab PO SCH ×2 (10:12→20:17)
[2018-02-16] MEDS: Theophylline 100 MG Cap.ER PO SCH (10:12)
[2018-02-16] MEDS: predniSONE 5 MG Tab PO SCH (10:12)
[2018-02-16] MEDS: Furosemide 40 MG Tab PO SCH (10:13)
[2018-02-16] MEDS: Levothyroxine 75 MCG Tab PO SCH (10:13)
[2018-02-16] MEDS: Isosorbide Mononitrate 30 MG Tab.ER PO SCH (10:13)
[2018-02-16] MEDS: Carvedilol 3.125 MG Tab PO SCH ×2 (10:14→17:47)
[2018-02-16] MEDS: Aspirin 81 MG Tab.EC PO SCH (10:14)
[2018-02-16] MEDS: Metoclopramide 10 MG/2 ML SDV IVPUSH SCH ×2 (10:15→18:25)
[2018-02-16] MEDS: Allopurinol 300 MG Tab PO SCH (10:15)
[2018-02-16] MEDS: Magnesium Hydroxide 400 MG/5 ML Susp 30 ML Cup PO SCH ×2 (10:15→20:18)
[2018-02-16] MEDS ORDERED: [UNRECOGNIZED DRUG - REMARK] TOP ONE (14:00)
[2018-02-16] MEDS: Pantoprazole 40 MG Vial IV SCH (17:44)
[2018-02-16] MEDS: Sennosides 8.6 MG Tab PO SCH (20:19)
[2018-02-17] MEDS: Acetaminophen 325 MG Tab PO SCH ×4 (02:14→21:45)
[2018-02-17] MEDS: Metoclopramide 10 MG/2 ML SDV IVPUSH SCH ×3 (02:15→18:16)
[2018-02-17] MEDS: Ibuprofen 400 MG Tab PO SCH ×2 (02:16→08:22)
[2018-02-17] MEDS: Ondansetron 4 MG/2 ML SDV IVPUSH PRN ×3 (02:20→20:34)
[2018-02-17] MEDS: cefOXitin 2 GM in Sodium Chloride 0.9% 50 ML IV SCH ×2 (02:24→08:48)
[2018-02-17] MEDS: traMADol 50 MG Tab PO PRN ×2 (04:00→10:07)
[2018-02-17] MEDS: Isosorbide Mononitrate 30 MG Tab.ER PO SCH (08:28)
[2018-02-17] MEDS: predniSONE 5 MG Tab PO SCH (08:28)
[2018-02-17] MEDS: Pantoprazole 40 MG Tab.CR PO SCH (08:29)
[2018-02-17] MEDS: Levothyroxine 75 MCG Tab PO SCH (08:31)
[2018-02-17] MEDS: Carvedilol 3.125 MG Tab PO SCH ×2 (08:32→18:10)
[2018-02-17] MEDS: Theophylline 100 MG Cap.ER PO SCH (08:33)
[2018-02-17] MEDS: Aspirin 81 MG Tab.EC PO SCH (08:34)
[2018-02-17] MEDS: Bisacodyl 5 MG Tab PO SCH ×2 (08:34→21:45)
[2018-02-17] MEDS: Furosemide 40 MG Tab PO SCH (08:34)
[2018-02-17] MEDS ORDERED: Magnesium Hydroxide 400 MG/5 ML Susp 30 ML Cup PO PRN (08:34)
[2018-02-17] MEDS: Allopurinol 300 MG Tab PO SCH (08:35)
[2018-02-17] MEDS: hydrOXYzine HCl 100 MG/2 ML SDV IM PRN (09:01)
[2018-02-17] MEDS: Albuterol/Ipratropium 3.0-0.5 MG/3 ML Neb Soln INH SCH ×4 (09:01→14:46)
[2018-02-17] MEDS: Budesonide 0.5 MG/2 ML Neb Susp INH SCH (09:01)
[2018-02-17] MEDS: D5 1/2 NS w/ 20 mEq/L KCl 1,000 ML IV SCH (10:12)
[2018-02-17] MEDS ORDERED: Naloxone 0.4 MG/ML SDV IV PRN (10:16)
[2018-02-17] MEDS ORDERED: HYDROmorphone/Normal Saline 15 MG/30 ML PCA IV ONE (10:17)
[2018-02-17] MEDS: HYDROmorphone/Normal Saline 15 MG/30 ML PCA IV PRN (10:31)
[2018-02-17] MEDS: Dextrose 5%-Lactated Ringers 1,000 ML IV SCH (10:35)
[2018-02-17] MEDS ORDERED: hydrOXYzine HCl 100 MG/2 ML SDV IM ONE (11:00)
[2018-02-17] MEDS ORDERED: Meperidine PF 75 MG/ML Syringe IM ONE (11:00)
[2018-02-17] MEDS: Potassium Phosphates 30 MMOLE in Sodium Chloride 0.9% 150 ML IV SCH ×2 (12:26→16:49)
--- NOTE | 2018-02-17 12:44 | PN ---
DATE OF SERVICE: 02/16/2018 The patient has been afebrile with stable vital signs. She is having some nausea this morning. No emesis. No flatus or bowel movement as of yet. Her urine output has been satisfactory. The plan will be to proceed with a delayed primary closure today, discontinue epidural catheter, ESME drain, and Vega catheter. I think we will add some Reglan to help with the nausea; otherwise resume diet as tolerated. Her urine output is fairly high and she is certainly someone who would be found in congestive heart failure. We will back down the IV rate to 40 mL/hr and recheck some labs in the morning. Robert Pate MD /[id number]
--- NOTE | 2018-02-17 17:35 | PN ---
DATE OF SERVICE: 02/17/2018 On review of labs, the patient is noted to have increasing creatinine from 0.9 to 1.0 yesterday up to 1.7 today. Urine output has been satisfactory. We will discontinue the ibuprofen and as they may be contributing to this and recheck some labs tomorrow. Her phosphate is also low and potassium is on the lower end of normal, so we will give her some K-Phos today and then bump up her IV rate to 100 mL an hour. Robert Pate MD /[id number]
[2018-02-17] MEDS ORDERED: Furosemide 20 MG/2 ML VIAL IVPUSH STA (20:02)
[2018-02-17] MEDS ORDERED: Furosemide 40 MG/4 ML VIAL IVPUSH ONE (21:32)
--- NOTE | 2018-02-17 21:43 | PCM.SN ---
- Free Text/Narrative Note: call from 2 N. for consult at the request of surgery department. s: consult for shortness of breath, Nurse Cari reports Mrs. Jenkins with increasing shortness of breath, increased need for oxygen. she was given a dose of IV Lasix 20 mg IV push at 20:02. o: this is an 82-year-old female with surgery on February 14 and again on February 16 , IV fluids lactated Ringer's at 100 mL's per hour, potassium phosphate 500 mL 1 intake and output mismatch noted, intake 1180 output 500 with a plus of 680 hours,also note Vega catheter was not placed until 20:15 today. Vital signs 36.3, pulse 108, respirations 16, O2 sat 89% oxygen via nasal cannula at 3 L, Vega catheter draining clear yellow urine. chest clear to bases, but has decreased breath sounds bilateral. No rhonchi rales or wheezing is appreciated. Abdomen is tender to exam, has YARD RIGGER pump Dilaudid for pain control. Upper extremities, bilateral hand edema is noted puffy fingers hands and forearms. Lower extremities without edema secondary to SCDs assessment: fluid overload Plan: consulted with Internal Medicine -give Lasix IV 40 mg now, -chest x-ray one view -change IV fluids to TKO rate, until urine output is adequate. -continue with close monitoring and present plan of care. Daughter is at bedside and agrees with plan of care.
[2018-02-17] MEDS: Sennosides 8.6 MG Tab PO SCH (21:45)
[2018-02-18] MEDS: Metoclopramide 10 MG/2 ML SDV IVPUSH SCH ×3 (03:33→17:39)
[2018-02-18] MEDS: Budesonide 0.5 MG/2 ML Neb Susp INH SCH ×3 (03:33→20:19)
[2018-02-18] MEDS: Albuterol/Ipratropium 3.0-0.5 MG/3 ML Neb Soln INH SCH ×5 (03:33→20:20)
[2018-02-18] MEDS: Acetaminophen 325 MG Tab PO SCH ×4 (03:35→20:16)
[2018-02-18] MEDS: hydrOXYzine HCl 100 MG/2 ML SDV IM PRN (06:11)
--- NOTE | 2018-02-18 09:28 | PN ---
DATE OF SERVICE: 02/17/2018 The patient has been afebrile with stable vital signs. Intermittently having a little bit of nausea, but otherwise oral intake was fair. No bowel movement as of yet. We will back down her IV rate a little bit, as she could have prominent fluid overload. Will have her get in the shower and otherwise continue ongoing bowel stimulation, maximize activity, and work with pulmonary toilet. Robert Pate MD /[id number]
[2018-02-18] MEDS: Levothyroxine 75 MCG Tab PO SCH (09:43)
[2018-02-18] MEDS: Carvedilol 3.125 MG Tab PO SCH ×2 (09:43→17:25)
[2018-02-18] MEDS: Pantoprazole 40 MG Tab.CR PO SCH (09:43)
[2018-02-18] MEDS: Isosorbide Mononitrate 30 MG Tab.ER PO SCH (09:44)
[2018-02-18] MEDS: Bisacodyl 5 MG Tab PO SCH ×2 (09:44→20:17)
[2018-02-18] MEDS: Aspirin 81 MG Tab.EC PO SCH (09:44)
[2018-02-18] MEDS: predniSONE 5 MG Tab PO SCH (09:45)
[2018-02-18] MEDS: Allopurinol 300 MG Tab PO SCH (09:45)
[2018-02-18] MEDS: Furosemide 40 MG Tab PO SCH (09:45)
[2018-02-18] MEDS: Theophylline 100 MG Cap.ER PO SCH (09:45)
[2018-02-18] MEDS ORDERED: predniSONE 10 MG Tab PO SCH (10:26)
[2018-02-18] MEDS ORDERED: Lactated Ringers 1,000 ML IV SCH (10:30)
--- NOTE | 2018-02-18 10:55 | CR ---
CHEST: 2 view CLINICAL HISTORY:Abdominal pain COMPARISON:2010 FINDINGS: Patient has an NG tube in the stomach. There is a prominent cardiac pacer in place. Heart is enlarged. There is streaky bilateral lower lobe densities most likely ileus. Pulmonary vasculature is normal IMPRESSION: Patchy bibasilar densities are most likely some patchy atelectasis Cardiomegaly. Permanent cardiac pacer NG tube is been placed in the stomach
[2018-02-18] MEDS ORDERED: Acetaminophen 1,000 MG in Premix Bag 1 BAG IV ONE (11:02)
--- NOTE | 2018-02-18 11:03 | CR ---
CHEST: Portable CLINICAL HISTORY:Abdominal pain COMPARISON:Earlier 02/17 FINDINGS: NG tube is withdrawn into the upper portion of the stomach at the GE junction. There is pe rsistent patchy bibasilar densities most likely atelectasis. IMPRESSION: NG tube is been withdrawn to just beyond the GE junction Persistent patchy bibasal airspace disease likely patchy atelectasis
--- NOTE | 2018-02-18 11:17 | CR ---
Abdomen 2V AP Flat Upright CLINICAL HISTORY: Abdominal pain FINDINGS: Patient has an NG tube the. The tip is in the epigastric region which may be just beyond th e GE junction. There is some free intraperitoneal air likely related to recent surgery. There is dila patricia fluid-filled small bowel in the midabdomen. There is some gaseous distention of colon. IMPRESSION: Colonic and small bowel distention. This is most likely related to postoperative ileus. P artial obstruction is not excluded. Free intraperitoneal air likely related to recent surgery. NG tube position is just beyond the GE junction
[2018-02-18] MEDS: methylPREDNISolone Sodium Succinate 40 MG/1 ML SDV IVPUSH SCH (13:44)
--- NOTE | 2018-02-18 13:51 | PCM.CONSN ---
- General Info Date of Service: 02/18/18 Subjective Update: Ms. Jenkins is an 82-year-old woman who I been asked to see in follow by Dr. Pate for management of hypotension, hypoxia, and acute kidney injury. She was hospitalized at this facility approximately 3 weeks ago with diverticulitis and at that time reported ongoing difficulty with rectal prolapse. She is been seen for follow-up by Dr. Pate and underwent exploratory laparotomy on February 14. She was found to have a rectal abscess was drained and underwent partial colon resection as well as treatment of her rectal prolapse. Over the past 24-48 hours she has had difficulty with an ileus requiring placement of an NG tube. During this period of time has developed increased hypoxia requiring increased level of supplemental oxygen as well as progressive kidney injury. She has received IV diuretic therapy with minimal result. - Review of Systems General: Reports: Weakness. Denies: Fever, Chills Pulmonary: Reports: Shortness of Breath. Denies: Pleuritic Chest Pain, Cough, Sputum, Hemoptysis, Wheezing Cardiovascular: Reports: Dyspnea on Exertion, Edema. Denies: Chest Pain, Palpitations, Orthopnea, PND, Lightheadedness Gastrointestinal: Reports: Abdominal Pain. Denies: Diarrhea, Difficulty Swallowing, Flatus, Nausea, Vomiting - Patient Data Vitals - Most Recent: Last Vital Signs Temp 98.2 F 02/18/18 11:29 Pulse 60 02/18/18 11:53 Resp 26 H 02/18/18 13:00 BP 90/37 L 02/18/18 13:00 Pulse Ox 90 L 02/18/18 13:00 Weight - Most Recent: 107 lb 4.995 oz I&O - Last 24 Hours: Intake & Output 02/17/18 02/18/18 02/18/18 22:59 06:59 14:59 Intake Total 1180 772 Output Total 300 350 140 Balance 880 -350 632 Lab Results Last 24 Hours: Laboratory Results - last 24 hr 02/18/18 02/18/18 Range/Units 04:00 04:00 PT 11.4 (9.5-12.0) sec INR 1.06 (0.80-1.20) Sodium 143 (140-148) mmol/L Potassium 4.6 (3.6-5.2) mmol/L Chloride 107 (100-108) mmol/L Carbon Dioxide 22 (21-32) mmol/L Anion Gap 13.9 (5.0-14.0) mmol/L BUN 25 H (7-18) mg/dL Creatinine 1.6 H (0.6-1.0) mg/dL Est Cr Clr Drug Dosing 19.47 mL/min Estimated GFR (MDRD) 31 L (>60) Glucose 142 H (74-106) mg/dL Calcium 8.6 (8.5-10.1) mg/dL Phosphorus 6.0 H (2.5-4.9) mg/dL Magnesium 2.8 H (1.8-2.4) mg/dL NT-Pro-B Natriuret Pep 3536 H (5-450) pg/mL Kash Results Last 24 Hours: Microbiology 02/14/18 14:31 Gram Stain - Final Perirectal Wound Culture - Preliminary Anaerobic Culture - Final NO GROWTH AFTER 3 DAYS Med Orders - Current: Current Medications Acetaminophen (Tylenol) 650 mg PO Q6H [facility] Last Admin: 02/18/18 09:43 Dose: 650 mg Albuterol/Ipratropium (Duoneb 3.0-0.5 Mg/3 Ml) 3 ml INH ASDIRECTED PRN PRN Reason: RESP Last Admin: 02/17/18 18:57 Dose: 3 ml Albuterol/Ipratropium (Duoneb 3.0-0.5 Mg/3 Ml) 3 ml INH QIDRT [facility] Last Admin: 02/18/18 11:33 Dose: 3 ml Allopurinol (Zyloprim) 150 mg PO DAILY [facility] Last Admin: 02/18/18 09:45 Dose: 150 mg Alvimopan (Entereg) 12 mg PO BID [facility] Stop: 02/21/18 09:01 Last Admin: 02/18/18 09:44 Dose: 12 mg Aspirin (Halfprin) 81 mg PO DAILY [facility] Last Admin: 02/18/18 09:44 Dose: 81 mg Bisacodyl (Dulcolax) 10 mg PO BID [facility] Last Admin: 02/18/18 09:44 Dose: 10 mg Bisacodyl (Dulcolax) 10 mg RECTAL TID [facility] Budesonide (Pulmicort) 0.5 mg INH BIDRT [facility] Last Admin: 02/18/18 08:54 Dose: Not Given Carvedilol (Coreg) 3.125 mg PO BIDMEALS [facility] Last Admin: 02/18/18 09:43 Dose: Not Given Hydromorphone HCl (Dilaudid Exhibition Carver 15 Mg In Ns 30 Ml) 0 mg IV ASDIRECTED PRN; Protocol PRN Reason: [employer] PAIN CONTROL Last Admin: 02/17/18 10:31 Dose: 15 mg Hydroxyzine HCl (Vistaril) 0 mg IM Q4H PRN PRN Reason: PAIN Last Admin: 02/17/18 09:01 Dose: 50 mg Dextrose/Lactated Ringer's (Dextrose 5%-Lactated Ringers) 1,000 mls @ 100 mls/ hr IV ASDIRECTED [facility] Last Admin: 02/17/18 10:35 Dose: 100 mls/hr Lactated Ringer's (Ringers, Lactated) 1,000 mls @ 250 mls/hr IV ASDIRECTED [facility] Stop: 02/18/18 14:31 Last Admin: 02/18/18 11:28 Dose: 250 mls/hr Isosorbide Mononitrate (Imdur) 30 mg PO DAILY [facility] Last Admin: 02/18/18 09:44 Dose: Not Given Levothyroxine Sodium (Levothyroxine) 75 mcg PO ACBREAKFAST [facility] Last Admin: 02/18/18 09:43 Dose: 75 mcg Magnesium Hydroxide (Milk Of Magnesia) 30 ml PO ASDIRECTED PRN PRN Reason: * Methylprednisolone Sodium Succinate (Solu-Medrol) 40 mg IVPUSH Q12H [facility] Metoclopramide HCl (Reglan) 10 mg IVPUSH Q8H [facility] Last Admin: 02/18/18 10:00 Dose: 10 mg Naloxone HCl (Narcan) 0.1 mg IV ASDIRECTED PRN PRN Reason: decreased respiratory rate Nitroglycerin (Nitrostat) 0.4 mg SL ASDIRECTED PRN PRN Reason: CHEST PAIN Ondansetron HCl (Zofran) 4 mg IVPUSH Q4H PRN PRN Reason: NAUSEA Last Admin: 02/17/18 20:34 Dose: 4 mg Pantoprazole Sodium (Protonix) 40 mg PO ACBREAKFAST [facility] Last Admin: 02/18/18 09:43 Dose: 40 mg Senna (Senna) 17.2 mg PO BEDTIME [facility] Last Admin: 02/17/18 21:45 Dose: Not Given Theophylline (Pablito-24) 400 mg PO DAILY [facility] Last Admin: 02/18/18 09:45 Dose: 400 mg Discontinued Medications Acetaminophen (Tylenol Extra Strength) 1,000 mg PO ONETIME ONE Stop: 02/14/18 08:16 Last Admin: 02/14/18 08:31 Dose: 1,000 mg Albuterol/Ipratropium (Duoneb 3.0-0.5 Mg/3 Ml) 3 ml NEB ONETIME ONE Stop: 02/14/18 09:46 Last Admin: 02/14/18 12:32 Dose: 3 ml Alvimopan (Entereg) 12 mg PO ONETIME ONE Stop: 02/14/18 08:16 Last Admin: 02/14/18 08:31 Dose: 12 mg Bupivacaine HCl (Marcaine 0.5%) Confirm Administered Dose 50 ml .ROUTE .STK-MED ONE Stop: 02/16/18 06:45 Last Admin: 02/16/18 07:44 Dose: 10 ml Cefoxitin Sodium (Mefoxin) Confirm Administered Dose 2 gm .ROUTE .STK-MED ONE Stop: 02/14/18 08:44 Ropivacaine 25 ml/Dexamethasone 8 mg/Epinephrine HCl 0.4 mg/ Sodium Chloride 52.6 ml 0 ml NERVRT ASDIRECTED [facility] Neomycin/Polymyxin 1 ml/ (Sodium Chloride 500 ml) 0 ml IRR ONETIME ONE Stop: 02/14/18 08:16 Last Admin: 02/14/18 08:35 Dose: 750 irr Ropivacaine 25 ml/Dexamethasone 8 mg/Epinephrine HCl 0.4 mg/ Sodium Chloride 52.6 ml 0 ml NERVRT ASDIRECTED [facility] Last Admin: 02/16/18 07:59 Dose: 80 syringe Dexamethasone (Dexamethasone) Confirm Administered Dose 4 mg .ROUTE .STK-MED ONE Stop: 02/14/18 09:36 Diphenhydramine HCl (Benadryl) 25 mg IVPUSH Q6H PRN PRN Reason: Itching Last Admin: 02/14/18 15:58 Dose: 25 mg Ephedrine Sulfate (Ephedrine Sulfate) Confirm Administered Dose 50 mg .ROUTE .STK-MED ONE Stop: 02/14/18 13:50 Fentanyl (Sublimaze) Confirm Administered Dose 250 mcg .ROUTE .STK-MED ONE Stop: 02/14/18 09:36 Fentanyl (Sublimaze) Confirm Administered Dose 100 mcg .ROUTE .STK-MED ONE Stop: 02/16/18 07:10 Furosemide (Lasix) 40 mg PO DAILY [facility] Last Admin: 02/18/18 09:45 Dose: 40 mg Furosemide (Lasix) 20 mg IVPUSH ONETIME STA Stop: 02/17/18 20:03 Last Admin: 02/17/18 20:30 Dose: 20 mg Furosemide (Lasix) 40 mg IVPUSH NOW ONE Stop: 02/17/18 21:33 Last Admin: 02/17/18 21:53 Dose: 40 mg Glucagon (Glucagen) Confirm Administered Dose 1 mg .ROUTE .STK-MED ONE Stop: 02/14/18 14:26 Glycopyrrolate (Robinul) Confirm Administered Dose 1 mg .ROUTE .STK-MED ONE Stop: 02/14/18 09:36 Hydromorphone HCl (Dilaudid Exhibition Carver 15 Mg In Ns 30 Ml) Confirm Administered Dose 15 mg IV .STK-MED ONE Stop: 02/17/18 10:18 Last Admin: 02/17/18 10:31 Dose: Not Given Hydroxyzine HCl (Vistaril) 75 mg IM ONETIME ONE Stop: 02/17/18 11:01 Last Admin: 02/17/18 11:00 Dose: 75 mg Dextrose/Lactated Ringer's (Dextrose 5%-Lactated Ringers) 1,000 mls @ 100 mls/ hr IV ASDIRECTED [facility] Last Admin: 02/14/18 12:44 Dose: 100 mls/hr Meropenem 500 mg/ Sodium (Chloride) 50 mls @ 100 mls/hr IV ONETIME ONE Stop: 02/14/18 10:14 Last Admin: 02/14/18 12:59 Dose: 100 mls/hr Fentanyl 2,500 mcg/ Sodium (Chloride) 250 mls @ 0 mls/hr EPIDUR TITRATE [facility]; Protocol Fentanyl Citrate 2,500 mcg/ (Sodium Chloride) 250 mls @ 0 mls/hr EPIDUR TITRATE [facility]; Protocol Last Admin: 02/15/18 15:05 Dose: 8 mls/hr, 8 mls/hr Lactated Ringer's (Ringers, Lactated) Confirm Administered Dose 1,000 mls @ as directed .ROUTE .STK-MED ONE Stop: 02/14/18 14:38 Dextrose/Lactated Ringer's (Dextrose 5%-Lactated Ringers) 1,000 mls @ 100 mls/ hr IV ASDIRECTED [facility] Dextrose/Lactated Ringer's (Dextrose 5%-Lactated Ringers) 1,000 mls @ 150 mls/ hr IV ASDIRECTED [facility] Last Admin: 02/15/18 02:48 Dose: 150 mls/hr Cefoxitin Sodium 2 gm/ Sodium (Chloride) 50 mls @ 100 mls/hr IV Q6H [facility] Last Admin: 02/17/18 08:48 Dose: 100 mls/hr Potassium Chloride/Dextrose/Sod Cl (D5 1/2 Ns W/ 20 Meq/L Kcl) 1,000 mls @ 80 mls/hr IV ASDIRECTED [facility] Last Admin: 02/15/18 09:37 Dose: 80 mls/hr Naloxone HCl 0.4 mg/ Potassium (Chloride/Dextrose/Sod Cl) 1,001 mls @ 80.08 mls /hr IV ASDIRECTED [facility] Last Admin: 02/16/18 04:38 Dose: 80.08 mls/hr Fentanyl Citrate 2,500 mcg/ (Sodium Chloride) 250 mls @ 4 mls/hr EPIDUR TITRATE [facility]; Protocol Last Admin: 02/15/18 22:56 Dose: 4 ml/hr, 4 mls/hr Potassium Chloride/Dextrose/Sod Cl (D5 1/2 Ns W/ 20 Meq/L Kcl) 1,000 mls @ 40 mls/hr IV ASDIRECTED [facility] Last Admin: 02/17/18 10:12 Dose: 100 mls/hr Potassium Phosphate 30 mmole/ (Sodium Chloride) 160 mls @ 54 mls/hr IV Q3H [facility] Stop: 02/17/18 16:58 Last Admin: 02/17/18 16:49 Dose: 54 mls/hr Acetaminophen 1,000 mg/ Premix 100 mls @ 400 mls/hr IV NOW ONE Stop: 02/18/18 11:16 Last Admin: 02/18/18 11:33 Dose: Not Given Ibuprofen (Motrin) 400 mg PO Q6H [facility] Last Admin: 02/17/18 08:22 Dose: 400 mg Ketamine HCl (Ketalar) 25 mg IV ASDIRECTED [facility] Lidocaine HCl (Xylocaine-Mpf 1%) Confirm Administered Dose 5 ml .ROUTE .[facility]-MED ONE Stop: 02/14/18 12:41 Last Admin: 02/14/18 16:48 Dose: Not Given Lidocaine HCl (Xylocaine-Mpf 1%) 0.1 ml INJECT ONETIME ONE Stop: 02/14/18 12:43 Last Admin: 02/14/18 16:48 Dose: Not Given Lidocaine/Epinephrine (Xylocaine 1% With Epinephrine 1:100,000) Confirm Administered Dose 50 ml .ROUTE .STK-MED ONE Stop: 02/16/18 06:45 Last Admin: 02/16/18 07:44 Dose: 10 ml Magnesium Hydroxide (Milk Of Magnesia) 30 ml PO BID [facility] Stop: 02/16/18 21:01 Last Admin: 02/16/18 20:18 Dose: 30 ml Meperidine HCl (Demerol) 75 mg IM ONETIME ONE Stop: 02/17/18 11:01 Last Admin: 02/17/18 11:00 Dose: 75 mg Meropenem (Merrem) Confirm Administered Dose 500 mg .ROUTE .STK-MED ONE Stop: 02/14/18 08:44 Last Admin: 02/14/18 14:30 Dose: 500 mg Meropenem (Merrem) Confirm Administered Dose 500 mg .ROUTE .STK-MED ONE Stop: 02/16/18 06:45 Last Admin: 02/16/18 07:49 Dose: 500 mg Naloxone HCl (Narcan) 0.1 mg IVPUSH Q5M PRN PRN Reason: RESP RATE LESS THAN 6/MINUTE Last Admin: 02/15/18 15:23 Dose: 0.1 mg Neostigmine Methylsulfate (Neostigmine) Confirm Administered Dose 5 mg .ROUTE .STK-MED ONE Stop: 02/14/18 09:36 Ondansetron HCl (Zofran) Confirm Administered Dose 4 mg .ROUTE .STK-MED ONE Stop: 02/14/18 09:36 Pantoprazole Sodium (Protonix Iv) 40 mg IV Q24H [facility] Last Admin: 02/16/18 17:44 Dose: 40 mg Trans-Derm Scop (Patch Removal) 0 each TOP ONETIME ONE Stop: 02/16/18 14:01 Last Admin: 02/16/18 15:05 Dose: Not Given Prednisone (Prednisone) 2.5 mg PO DAILY [facility] Last Admin: 02/18/18 09:45 Dose: 2.5 mg Prednisone (Prednisone) 10 mg PO DAILY [facility] Last Admin: 02/18/18 11:38 Dose: 10 mg Propofol (Diprivan 20 Ml) Confirm Administered Dose 200 mg .ROUTE .STK-MED ONE Stop: 02/14/18 09:36 Propofol (Diprivan 20 Ml) Confirm Administered Dose 200 mg .ROUTE .STK-MED ONE Stop: 02/16/18 07:10 Rocuronium Enterprise (Zemuron) Confirm Administered Dose 50 mg .ROUTE .STK-MED ONE Stop: 02/14/18 09:36 Scopolamine (Transderm-Scop) 1.5 mg TOP ONETIME ONE Stop: 02/14/18 08:16 Last Admin: 02/14/18 08:32 Dose: 1.5 mg Senna (Senna) 8.6 mg PO BEDTIME [facility] Last Admin: 02/15/18 21:24 Dose: 8.6 mg Succinylcholine Chloride (Quelicin) Confirm Administered Dose 200 mg .ROUTE .STK -MED ONE Stop: 02/14/18 09:36 Tramadol HCl (Ultram) 50 mg PO Q6H PRN PRN Reason: PAIN Last Admin: 02/17/18 04:00 Dose: 50 mg - Exam General: Alert, Oriented, Cooperative, Moderate Distress Lungs: Decreased Breath Sounds. No: Crackles, Rales, Rhonchi, Rub, Stridor, Wheezing Cardiovascular: Regular Rate, Regular Rhythm, No Murmurs GI/Abdominal Exam: No Organomegaly, Distended, Tender, Abnormal Bowel Sounds. No: Guarding, Rigid, Rebound Extremities: Non-Tender, Pedal Edema Skin: Warm, Dry Consult PN Assessment/Plan Procedures: Procedures AGENT NOS ASSAY W/OPTIC (01/19/18) AIRWAY INHALATION TREATMENT (01/19/18) ASSAY OF AMYLASE (01/02/18) ASSAY OF LIPASE (01/19/18) ASSAY OF MAGNESIUM (01/19/18) ASSAY OF PHOSPHORUS (01/19/18) ASSAY OF SERUM POTASSIUM (01/19/18) ASSAY THYROID STIM HORMONE (01/19/18) C DIFF AMPLIFIED PROBE (01/19/18) C-REACTIVE PROTEIN (01/19/18) CARDIOVASCULAR STRESS TEST (04/12/16) CHEST WALL MANIPULATION (12/19/17) CHEST WALL MANIPULATION (12/19/17) COMP SCREEN MAMMOGRAM ADD-ON (04/05/15) COMPLETE CBC AUTOMATED (01/19/18) COMPLETE CBC W/AUTO DIFF WBC (01/19/18) COMPREHEN METABOLIC PANEL (01/19/18) CT ABD & PELV W/CONTRAST (01/19/18) CT ABD & PELVIS W/O CONTRAST (01/02/18) CULTURE AEROBIC IDENTIFY (12/19/17) CULTURE OTHR SPECIMN AEROBIC (12/19/17) CULTURE SCREEN ONLY (10/09/17) EGD BIOPSY SINGLE/MULTIPLE (10/09/17) EMERGENCY DEPT VISIT (01/19/18) EMERGENCY DEPT VISIT (01/19/18) HT MUSCLE IMAGE SPECT MULT (04/12/16) HYDRATE IV INFUSION ADD-ON (01/19/18) LEUKOCYTE ASSESSMENT FECAL (01/02/18) MANUAL THERAPY 1/> REGIONS (12/17/17) METABOLIC PANEL TOTAL CA (01/19/18) NEUROMUSCULAR REEDUCATION (12/17/17) OVA AND PARASITES SMEARS (01/19/18) PROTHROMBIN TIME (01/19/18) PT EVAL MOD COMPLEX 30 MIN (08/13/17) ROUTINE VENIPUNCTURE (01/19/18) SMEAR COMPLEX STAIN (01/19/18) SMEAR GRAM STAIN (12/19/17) STOOL CULTR AEROBIC BACT EA (01/19/18) THER/PROPH/DIAG INJ IV PUSH (01/19/18) THERAPEUTIC EXERCISES (12/17/17) TISSUE EXAM BY PATHOLOGIST (10/09/17) TX/PRO/DX INJ SAME DRUG CLINICAL REHABILITATION LIAISON (01/02/18) ULTRASOUND THERAPY (12/17/17) X-RAY EXAM ABDOMEN 2 VIEWS (01/02/18) X-RAY EXAM OF SHOULDER (07/26/17) Problem List Initiated/Reviewed/Updated: Yes My Orders Last 24 Hours: My Active Orders 02/18/18 10:26 Patient Status [ADT] Routine 02/18/18 10:30 Lactated Ringers [Ringers, Lactated] 1,000 ml IV ASDIRECTED 02/18/18 11:36 BIPAP Adult [RT BiPAP/CPAP] [RC] ASDIRECTED 02/18/18 13:30 methylPREDNISolone Sod Succ [Solu-MEDROL] 40 mg IVPUSH Q12H Plan: ASSESSMENT AND RECOMMENDATIONS STATUS POST EXPLORATORY LAPAROTOMY-please see operative note for details concerning surgical procedure. Postoperative course complicated by ongoing ileus. -Postoperative management per Dr. Pate HYPOXIC RESPIRATORY FAILURE-multifactorial, related to underlying COPD, and hypoventilation secondary to pain related to abdominal incision, well as sedating effect of pain medications. Chest x-ray from this morning shows no evidence of significant pulmonary edema, but does show evidence of atelectasis. -Continue nebulizer therapy and supplemental oxygen as needed -BiPAP for respiratory support and correction of hypoventilation -Transfer to intensive care unit for more close monitoring ACUTE KIDNEY INJURY-secondary to intravascular volume depletion and hypotension. She is up on total body fluids, but continues to have some third spacing resulting in the intravascular volume depletion. -LR at 250 mL/h for 4 hours -Followed by LR at 125 mL per hour -Keep mean arterial pressure greater than 70 -Continue to hold antihypertensive therapy -Recheck kidney function in a.m. HYPOTENSION-secondary to intravascular volume depletion. There may also be a component of adrenal insufficiency. -IV fluids as above -Keep mean arterial pressure greater than 70 -Solu-Medrol 40 mg IV every 12 hours
[2018-02-18] MEDS: Bisacodyl 10 MG Supp RECTAL SCH ×2 (14:04→20:17)
[2018-02-18] MEDS: Dextrose 5%-Lactated Ringers 1,000 ML IV SCH ×2 (15:25→23:22)
--- NOTE | 2018-02-18 16:23 | PN ---
DATE OF SERVICE: 02/18/2018 SUBJECTIVE: Dee has had some hypoxia. She is on 4 L of O2 with oximetry between 80% and 89%, had one smear BM, creatinine 1.7. Her pain is controlled. REVIEW OF SYSTEMS: Remainder of review of systems negative for any pertinent positives and negatives. OBJECTIVE: GENERAL: Dee Jenkins is an 82-year-old female. She is alert and orientated. VITAL SIGNS: TPR 98.4, 59, 20; blood pressure 79/43. HEENT: Negative. NECK: Supple. HEART: Regular rate and rhythm. LUNGS: Clear. ABDOMEN: Soft, minimally tender. EXTREMITIES: Without peripheral edema. ASSESSMENT: 1. Exploratory laparotomy, drainage of pericolonic abscess, rectosigmoid colon resection and coloproctectomy and rectopexy for recurrent sigmoid diverticulitis with focal pericolonic abscess and rectal prolapse. Date of surgery 02/14/2018. Robert Pate MD. 2. Intravascular volume depletion. 3. Chronic obstructive pulmonary disease. PLAN: 1. Consult with Internal Medicine, Dr. Santana Lua to review cardiopulmonary status. 2. IV Tylenol 1 g one time now. 3. Dulcolax suppositories t.i.d. until the patient has bowel movement. 4. Do not schedule to wake up patient. 5. Check CBC, mag, phos, BNP, and CMP in a.m. 6. We will evaluate p.r.n. or in a.m. Krystal Bernal PA-C /[id number]
[2018-02-18] MEDS: Sennosides 8.6 MG Tab PO SCH (20:18)
[2018-02-18] MEDS: Ondansetron 4 MG/2 ML SDV IVPUSH PRN (20:33)
[2018-02-19] MEDS: Metoclopramide 10 MG/2 ML SDV IVPUSH SCH ×3 (00:59→16:59)
[2018-02-19] MEDS: Acetaminophen 325 MG Tab PO SCH ×4 (00:59→20:53)
[2018-02-19] MEDS: methylPREDNISolone Sodium Succinate 40 MG/1 ML SDV IVPUSH SCH ×2 (00:59→14:25)
[2018-02-19] MEDS: Ondansetron 4 MG/2 ML SDV IVPUSH PRN ×4 (03:56→15:30)
[2018-02-19] MEDS: HYDROmorphone/Normal Saline 15 MG/30 ML PCA IV PRN (06:32)
[2018-02-19] MEDS: Budesonide 0.5 MG/2 ML Neb Susp INH SCH ×2 (07:16→20:55)
[2018-02-19] MEDS: Albuterol/Ipratropium 3.0-0.5 MG/3 ML Neb Soln INH SCH ×4 (07:16→20:55)
[2018-02-19] MEDS: Levothyroxine 75 MCG Tab PO SCH (07:36)
[2018-02-19] MEDS: Carvedilol 3.125 MG Tab PO SCH ×2 (07:37→16:59)
[2018-02-19] MEDS: Pantoprazole 40 MG Tab.CR PO SCH (07:37)
[2018-02-19] MEDS: Dextrose 5%-Lactated Ringers 1,000 ML IV SCH ×2 (08:52→21:46)
[2018-02-19] MEDS: Bisacodyl 5 MG Tab PO SCH ×2 (09:28→20:54)
[2018-02-19] MEDS: Bisacodyl 10 MG Supp RECTAL SCH ×3 (09:29→20:54)
[2018-02-19] MEDS: Isosorbide Mononitrate 30 MG Tab.ER PO SCH (09:30)
[2018-02-19] MEDS: Aspirin 81 MG Tab.EC PO SCH (09:30)
[2018-02-19] MEDS: Theophylline 100 MG Cap.ER PO SCH (09:31)
[2018-02-19] MEDS: Allopurinol 300 MG Tab PO SCH (09:32)
--- NOTE | 2018-02-19 09:51 | PCM.CONSN ---
- General Info Date of Service: 02/19/18 Subjective Update: Fantasma has been stable overnight, for the most part she has refused use of BiPAP. Respiratory status seems to be modestly improved today, saturations in the low 90s on supplemental oxygen. With IV fluids urine output has picked up, creatinine did go up to 2.0 with a further decrease in GFR. Persistent ileus, not yet passing gas. Functional Status: Reports: Pain Controlled, Ambulating - Review of Systems General: Reports: Weakness. Denies: Fever, Chills Pulmonary: Reports: No Symptoms Cardiovascular: Reports: No Symptoms Gastrointestinal: Reports: Abdominal Pain. Denies: Difficulty Swallowing, Flatus, Nausea, Vomiting - Patient Data Vitals - Most Recent: Last Vital Signs Temp 97.7 F 02/19/18 07:52 Pulse 116 H 02/19/18 07:52 Resp 23 H 02/19/18 07:52 BP 150/69 H 02/19/18 09:30 Pulse Ox 93 L 02/19/18 07:52 Weight - Most Recent: 107 lb 4.995 oz I&O - Last 24 Hours: Intake & Output 02/18/18 02/19/18 02/19/18 22:59 06:59 14:59 Intake Total 1343 Output Total 376 1000 225 Balance -376 343 -225 Lab Results Last 24 Hours: Laboratory Results - last 24 hr 02/19/18 02/19/18 02/19/18 Range/Units 04:30 04:30 04:30 WBC 7.9 (4.5-11.0) K/uL RBC 4.17 (3.30-5.50) M/uL Hgb 13.0 D (12.0-15.0) g/dL Hct 39.9 (36.0-48.0) % MCV 96 (80-98) fL MCH 31 (27-31) pg MCHC 33 (32-36) % Plt Count 157 (150-400) K/uL PT 14.3 H (9.5-12.0) sec INR 1.32 H (0.80-1.20) Sodium 140 (140-148) mmol/L Potassium 4.8 (3.6-5.2) mmol/L Chloride 106 (100-108) mmol/L Carbon Dioxide 22 (21-32) mmol/L Anion Gap 12.3 (5.0-14.0) mmol/L BUN 36 H (7-18) mg/dL Creatinine 2.0 H (0.6-1.0) mg/dL Est Cr Clr Drug Dosing 15.58 mL/min Estimated GFR (MDRD) 24 L (>60) Glucose 203 H (74-106) mg/dL Calcium 8.6 (8.5-10.1) mg/dL Phosphorus 4.7 (2.5-4.9) mg/dL Magnesium 2.4 (1.8-2.4) mg/dL Total Bilirubin 0.6 (0.2-1.0) mg/dL AST 53 H D (15-37) U/L ALT 31 (12-78) U/L Alkaline Phosphatase 124 H (46-116) U/L NT-Pro-B Natriuret Pep 8077 H (5-450) pg/mL Total Protein 5.2 L (6.4-8.2) g/dL Albumin 1.6 L (3.4-5.0) g/dL Globulin 3.6 H (2.3-3.5) g/dL Albumin/Globulin Ratio 0.4 L (1.2-2.2) Kash Results Last 24 Hours: Microbiology 02/14/18 14:31 Gram Stain - Final Perirectal Wound Culture - Final Enterococcus Faecium YEAST Anaerobic Culture - Final NO GROWTH AFTER 3 DAYS Med Orders - Current: Current Medications Acetaminophen (Tylenol) 650 mg PO Q6H [facility] Last Admin: 02/19/18 07:38 Dose: 650 mg Albuterol/Ipratropium (Duoneb 3.0-0.5 Mg/3 Ml) 3 ml INH ASDIRECTED PRN PRN Reason: RESP Last Admin: 02/17/18 18:57 Dose: 3 ml Albuterol/Ipratropium (Duoneb 3.0-0.5 Mg/3 Ml) 3 ml INH QIDRT [facility] Last Admin: 02/19/18 07:16 Dose: 3 ml Allopurinol (Zyloprim) 150 mg PO DAILY [facility] Last Admin: 02/19/18 09:32 Dose: 150 mg Alvimopan (Entereg) 12 mg PO BID [facility] Stop: 02/21/18 09:01 Last Admin: 02/19/18 09:30 Dose: 12 mg Aspirin (Halfprin) 81 mg PO DAILY [facility] Last Admin: 02/19/18 09:30 Dose: 81 mg Bisacodyl (Dulcolax) 10 mg PO BID [facility] Last Admin: 02/19/18 09:28 Dose: 10 mg Bisacodyl (Dulcolax) 10 mg RECTAL TID [facility] Last Admin: 02/19/18 09:29 Dose: 10 mg Budesonide (Pulmicort) 0.5 mg INH BIDRT [facility] Last Admin: 02/19/18 07:16 Dose: 0.5 mg Carvedilol (Coreg) 3.125 mg PO BIDMEALS [facility] Last Admin: 02/19/18 07:37 Dose: 3.125 mg Hydromorphone HCl (Dilaudid Aperture Mask Etcher 15 Mg In Ns 30 Ml) 0 mg IV ASDIRECTED PRN; Protocol 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 Last Admin: 02/19/18 06:32 Dose: 15 mg Hydroxyzine HCl (Vistaril) 0 mg IM Q4H PRN PRN Reason: PAIN Last Admin: 02/17/18 09:01 Dose: 50 mg Dextrose/Lactated Ringer's (Dextrose 5%-Lactated Ringers) 1,000 mls @ 75 mls/ hr IV ASDIRECTED [facility] Isosorbide Mononitrate (Imdur) 30 mg PO DAILY [facility] Last Admin: 02/19/18 09:30 Dose: 30 mg Levothyroxine Sodium (Levothyroxine) 75 mcg PO ACBREAKFAST [facility] Last Admin: 02/19/18 07:36 Dose: 75 mcg Magnesium Hydroxide (Milk Of Magnesia) 30 ml PO ASDIRECTED PRN PRN Reason: * Methylprednisolone Sodium Succinate (Solu-Medrol) 40 mg IVPUSH Q12H [facility] Last Admin: 02/19/18 00:59 Dose: 40 mg Metoclopramide HCl (Reglan) 10 mg IVPUSH Q8H [facility] Last Admin: 02/19/18 09:35 Dose: 10 mg Naloxone HCl (Narcan) 0.1 mg IV ASDIRECTED PRN PRN Reason: decreased respiratory rate Nitroglycerin (Nitrostat) 0.4 mg SL ASDIRECTED PRN PRN Reason: CHEST PAIN Ondansetron HCl (Zofran) 4 mg IVPUSH Q4H PRN PRN Reason: NAUSEA Last Admin: 02/19/18 07:35 Dose: 4 mg Pantoprazole Sodium (Protonix) 40 mg PO ACBREAKFAST [facility] Last Admin: 02/19/18 07:37 Dose: 40 mg Senna (Senna) 17.2 mg PO BEDTIME [facility] Last Admin: 02/18/18 20:18 Dose: 17.2 mg Theophylline (Pablito-24) 400 mg PO DAILY [facility] Last Admin: 02/19/18 09:31 Dose: 400 mg Discontinued Medications Acetaminophen (Tylenol Extra Strength) 1,000 mg PO ONETIME ONE Stop: 02/14/18 08:16 Last Admin: 02/14/18 08:31 Dose: 1,000 mg Albuterol/Ipratropium (Duoneb 3.0-0.5 Mg/3 Ml) 3 ml NEB ONETIME ONE Stop: 02/14/18 09:46 Last Admin: 02/14/18 12:32 Dose: 3 ml Alvimopan (Entereg) 12 mg PO ONETIME ONE Stop: 02/14/18 08:16 Last Admin: 02/14/18 08:31 Dose: 12 mg Bupivacaine HCl (Marcaine 0.5%) Confirm Administered Dose 50 ml .ROUTE .STK-MED ONE Stop: 02/16/18 06:45 Last Admin: 02/16/18 07:44 Dose: 10 ml Cefoxitin Sodium (Mefoxin) Confirm Administered Dose 2 gm .ROUTE .STK-MED ONE Stop: 02/14/18 08:44 Ropivacaine 25 ml/Dexamethasone 8 mg/Epinephrine HCl 0.4 mg/ Sodium Chloride 52.6 ml 0 ml NERVRT ASDIRECTED [facility] Neomycin/Polymyxin 1 ml/ (Sodium Chloride 500 ml) 0 ml IRR ONETIME ONE Stop: 02/14/18 08:16 Last Admin: 02/14/18 08:35 Dose: 750 irr Ropivacaine 25 ml/Dexamethasone 8 mg/Epinephrine HCl 0.4 mg/ Sodium Chloride 52.6 ml 0 ml NERVRT ASDIRECTED [facility] Last Admin: 02/16/18 07:59 Dose: 80 syringe Dexamethasone (Dexamethasone) Confirm Administered Dose 4 mg .ROUTE .STK-MED ONE Stop: 02/14/18 09:36 Diphenhydramine HCl (Benadryl) 25 mg IVPUSH Q6H PRN PRN Reason: Itching Last Admin: 02/14/18 15:58 Dose: 25 mg Ephedrine Sulfate (Ephedrine Sulfate) Confirm Administered Dose 50 mg .ROUTE .STK-MED ONE Stop: 02/14/18 13:50 Fentanyl (Sublimaze) Confirm Administered Dose 250 mcg .ROUTE .STK-MED ONE Stop: 02/14/18 09:36 Fentanyl (Sublimaze) Confirm Administered Dose 100 mcg .ROUTE .STK-MED ONE Stop: 02/16/18 07:10 Furosemide (Lasix) 40 mg PO DAILY [facility] Last Admin: 02/18/18 09:45 Dose: 40 mg Furosemide (Lasix) 20 mg IVPUSH ONETIME STA Stop: 02/17/18 20:03 Last Admin: 02/17/18 20:30 Dose: 20 mg Furosemide (Lasix) 40 mg IVPUSH NOW ONE Stop: 02/17/18 21:33 Last Admin: 02/17/18 21:53 Dose: 40 mg Glucagon (Glucagen) Confirm Administered Dose 1 mg .ROUTE .STK-MED ONE Stop: 02/14/18 14:26 Glycopyrrolate (Robinul) Confirm Administered Dose 1 mg .ROUTE .STK-MED ONE Stop: 02/14/18 09:36 Hydromorphone HCl (Dilaudid Aperture Mask Etcher 15 Mg In Ns 30 Ml) Confirm Administered Dose 15 mg IV .STK-MED ONE Stop: 02/17/18 10:18 Last Admin: 02/17/18 10:31 Dose: Not Given Hydroxyzine HCl (Vistaril) 75 mg IM ONETIME ONE Stop: 02/17/18 11:01 Last Admin: 02/17/18 11:00 Dose: 75 mg Dextrose/Lactated Ringer's (Dextrose 5%-Lactated Ringers) 1,000 mls @ 100 mls/ hr IV ASDIRECTED [facility] Last Admin: 02/14/18 12:44 Dose: 100 mls/hr Meropenem 500 mg/ Sodium (Chloride) 50 mls @ 100 mls/hr IV ONETIME ONE Stop: 02/14/18 10:14 Last Admin: 02/14/18 12:59 Dose: 100 mls/hr Fentanyl 2,500 mcg/ Sodium (Chloride) 250 mls @ 0 mls/hr EPIDUR TITRATE [facility]; Protocol Fentanyl Citrate 2,500 mcg/ (Sodium Chloride) 250 mls @ 0 mls/hr EPIDUR TITRATE [facility]; Protocol Last Admin: 02/15/18 15:05 Dose: 8 mls/hr, 8 mls/hr Lactated Ringer's (Ringers, Lactated) Confirm Administered Dose 1,000 mls @ as directed .ROUTE .K-MED ONE Stop: 02/14/18 14:38 Dextrose/Lactated Ringer's (Dextrose 5%-Lactated Ringers) 1,000 mls @ 100 mls/ hr IV ASDIRECTED [facility] Dextrose/Lactated Ringer's (Dextrose 5%-Lactated Ringers) 1,000 mls @ 150 mls/ hr IV ASDIRECTED [facility] Last Admin: 02/15/18 02:48 Dose: 150 mls/hr Cefoxitin Sodium 2 gm/ Sodium (Chloride) 50 mls @ 100 mls/hr IV Q6H [facility] Last Admin: 02/17/18 08:48 Dose: 100 mls/hr Potassium Chloride/Dextrose/Sod Cl (D5 1/2 Ns W/ 20 Meq/L Kcl) 1,000 mls @ 80 mls/hr IV ASDIRECTED [facility] Last Admin: 02/15/18 09:37 Dose: 80 mls/hr Naloxone HCl 0.4 mg/ Potassium (Chloride/Dextrose/Sod Cl) 1,001 mls @ 80.08 mls /hr IV ASDIRECTED [facility] Last Admin: 02/16/18 04:38 Dose: 80.08 mls/hr Fentanyl Citrate 2,500 mcg/ (Sodium Chloride) 250 mls @ 4 mls/hr EPIDUR TITRATE [facility]; Protocol Last Admin: 02/15/18 22:56 Dose: 4 ml/hr, 4 mls/hr Potassium Chloride/Dextrose/Sod Cl (D5 1/2 Ns W/ 20 Meq/L Kcl) 1,000 mls @ 40 mls/hr IV ASDIRECTED [facility] Last Admin: 02/17/18 10:12 Dose: 100 mls/hr Potassium Phosphate 30 mmole/ (Sodium Chloride) 160 mls @ 54 mls/hr IV Q3H [facility] Stop: 02/17/18 16:58 Last Admin: 02/17/18 16:49 Dose: 54 mls/hr Dextrose/Lactated Ringer's (Dextrose 5%-Lactated Ringers) 1,000 mls @ 100 mls/ hr IV ASDIRECTED [facility] Last Admin: 02/19/18 08:52 Dose: 100 mls/hr Lactated Ringer's (Ringers, Lactated) 1,000 mls @ 250 mls/hr IV ASDIRECTED [facility] Stop: 02/18/18 14:31 Last Admin: 02/18/18 11:28 Dose: 250 mls/hr Acetaminophen 1,000 mg/ Premix 100 mls @ 400 mls/hr IV NOW ONE Stop: 02/18/18 11:16 Last Admin: 02/18/18 11:33 Dose: Not Given Ibuprofen (Motrin) 400 mg PO Q6H [facility] Last Admin: 02/17/18 08:22 Dose: 400 mg Ketamine HCl (Ketalar) 25 mg IV ASDIRECTED [facility] Lidocaine HCl (Xylocaine-Mpf 1%) Confirm Administered Dose 5 ml .ROUTE .STK-MED ONE Stop: 02/14/18 12:41 Last Admin: 02/14/18 16:48 Dose: Not Given Lidocaine HCl (Xylocaine-Mpf 1%) 0.1 ml INJECT ONETIME ONE Stop: 02/14/18 12:43 Last Admin: 02/14/18 16:48 Dose: Not Given Lidocaine/Epinephrine (Xylocaine 1% With Epinephrine 1:100,000) Confirm Administered Dose 50 ml .ROUTE .STK-MED ONE Stop: 02/16/18 06:45 Last Admin: 02/16/18 07:44 Dose: 10 ml Magnesium Hydroxide (Milk Of Magnesia) 30 ml PO BID [facility] Stop: 02/16/18 21:01 Last Admin: 02/16/18 20:18 Dose: 30 ml Meperidine HCl (Demerol) 75 mg IM ONETIME ONE Stop: 02/17/18 11:01 Last Admin: 02/17/18 11:00 Dose: 75 mg Meropenem (Merrem) Confirm Administered Dose 500 mg .ROUTE .STK-MED ONE Stop: 02/14/18 08:44 Last Admin: 02/14/18 14:30 Dose: 500 mg Meropenem (Merrem) Confirm Administered Dose 500 mg .ROUTE .STK-MED ONE Stop: 02/16/18 06:45 Last Admin: 02/16/18 07:49 Dose: 500 mg Naloxone HCl (Narcan) 0.1 mg IVPUSH Q5M PRN PRN Reason: RESP RATE LESS THAN 6/MINUTE Last Admin: 02/15/18 15:23 Dose: 0.1 mg Neostigmine Methylsulfate (Neostigmine) Confirm Administered Dose 5 mg .ROUTE .STK-MED ONE Stop: 02/14/18 09:36 Ondansetron HCl (Zofran) Confirm Administered Dose 4 mg .ROUTE .STK-MED ONE Stop: 02/14/18 09:36 Pantoprazole Sodium (Protonix Iv) 40 mg IV Q24H [facility] Last Admin: 02/16/18 17:44 Dose: 40 mg Trans-Derm Scop (Patch Removal) 0 each TOP ONETIME ONE Stop: 02/16/18 14:01 Last Admin: 02/16/18 15:05 Dose: Not Given Prednisone (Prednisone) 2.5 mg PO DAILY [facility] Last Admin: 02/18/18 09:45 Dose: 2.5 mg Prednisone (Prednisone) 10 mg PO DAILY [facility] Last Admin: 02/18/18 11:38 Dose: 10 mg Propofol (Diprivan 20 Ml) Confirm Administered Dose 200 mg .ROUTE .STK-MED ONE Stop: 02/14/18 09:36 Propofol (Diprivan 20 Ml) Confirm Administered Dose 200 mg .ROUTE .STK-MED ONE Stop: 02/16/18 07:10 Rocuronium [place] (Zemuron) Confirm Administered Dose 50 mg .ROUTE .STK-MED ONE Stop: 02/14/18 09:36 Scopolamine (Transderm-Scop) 1.5 mg TOP ONETIME ONE Stop: 02/14/18 08:16 Last Admin: 02/14/18 08:32 Dose: 1.5 mg Senna (Senna) 8.6 mg PO BEDTIME [facility] Last Admin: 02/15/18 21:24 Dose: 8.6 mg Succinylcholine Chloride (Quelicin) Confirm Administered Dose 200 mg .ROUTE .STK -MED ONE Stop: 02/14/18 09:36 Tramadol HCl (Ultram) 50 mg PO Q6H PRN PRN Reason: PAIN Last Admin: 02/17/18 04:00 Dose: 50 mg - Exam Quality Assessment: Supplemental Oxygen, Urine Catheter, DVT Prophylaxis General: Alert, Oriented, Cooperative, Mild Distress Lungs: Decreased Breath Sounds. No: Crackles, Rales, Rhonchi, Rub, Stridor, Wheezing Cardiovascular: Regular Rhythm, No Murmurs, Tachycardia GI/Abdominal Exam: Soft, No Organomegaly, No Distention, Tender. No: Guarding, Rigid, Rebound Extremities: Non-Tender, Pedal Edema Skin: Warm, Dry Consult PN Assessment/Plan Procedures: Procedures AGENT NOS ASSAY W/OPTIC (01/19/18) AIRWAY INHALATION TREATMENT (01/19/18) ASSAY OF AMYLASE (01/02/18) ASSAY OF LIPASE (01/19/18) ASSAY OF MAGNESIUM (01/19/18) ASSAY OF PHOSPHORUS (01/19/18) ASSAY OF SERUM POTASSIUM (01/19/18) ASSAY THYROID STIM HORMONE (01/19/18) C DIFF AMPLIFIED PROBE (01/19/18) C-REACTIVE PROTEIN (01/19/18) CARDIOVASCULAR STRESS TEST (04/12/16) CHEST WALL MANIPULATION (12/19/17) CHEST WALL MANIPULATION (12/19/17) COMP SCREEN MAMMOGRAM ADD-ON (04/05/15) COMPLETE CBC AUTOMATED (01/19/18) COMPLETE CBC W/AUTO DIFF WBC (01/19/18) COMPREHEN METABOLIC PANEL (01/19/18) CT ABD & PELV W/CONTRAST (01/19/18) CT ABD & PELVIS W/O CONTRAST (01/02/18) CULTURE AEROBIC IDENTIFY (12/19/17) CULTURE OTHR SPECIMN AEROBIC (12/19/17) CULTURE SCREEN ONLY (10/09/17) EGD BIOPSY SINGLE/MULTIPLE (10/09/17) EMERGENCY DEPT VISIT (01/19/18) EMERGENCY DEPT VISIT (01/19/18) HT MUSCLE IMAGE SPECT MULT (04/12/16) HYDRATE IV INFUSION ADD-ON (01/19/18) LEUKOCYTE ASSESSMENT FECAL (01/02/18) MANUAL THERAPY 1/> REGIONS (12/17/17) METABOLIC PANEL TOTAL CA (01/19/18) NEUROMUSCULAR REEDUCATION (12/17/17) OVA AND PARASITES SMEARS (01/19/18) PROTHROMBIN TIME (01/19/18) PT EVAL MOD COMPLEX 30 MIN (08/13/17) ROUTINE VENIPUNCTURE (01/19/18) SMEAR COMPLEX STAIN (01/19/18) SMEAR GRAM STAIN (12/19/17) STOOL CULTR AEROBIC BACT EA (01/19/18) THER/PROPH/DIAG INJ IV PUSH (01/19/18) THERAPEUTIC EXERCISES (12/17/17) TISSUE EXAM BY PATHOLOGIST (10/09/17) TX/PRO/DX INJ SAME DRUG MEASURER (01/02/18) ULTRASOUND THERAPY (12/17/17) X-RAY EXAM ABDOMEN 2 VIEWS (01/02/18) X-RAY EXAM OF SHOULDER (07/26/17) Problem List Initiated/Reviewed/Updated: Yes My Orders Last 24 Hours: My Active Orders 02/18/18 10:26 Patient Status [ADT] Routine 02/18/18 11:36 BIPAP Adult [RT BiPAP/CPAP] [RC] ASDIRECTED 02/18/18 14:00 methylPREDNISolone Sod Succ [Solu-MEDROL] 40 mg IVPUSH Q12H 02/19/18 09:45 Dextrose 5%-Lactated Ringers @ 75 MLS/HR(1000ml) Dextrose 5%-Lactated Ringers 1 ,000 ml IV ASDIRECTED 02/20/18 05:11 THEOPHYLLINE [CHEM] AM Plan: ASSESSMENT AND RECOMMENDATIONS STATUS POST EXPLORATORY LAPAROTOMY-please see operative note for details concerning surgical procedure. Persistent ileus, not yet passing gas. -Postoperative management per Dr. Pate HYPOXIC RESPIRATORY FAILURE-multifactorial, related to underlying COPD, and hypoventilation secondary to pain related to abdominal incision, as well as sedating effect of pain medications. Modest improvement in respiratory status over the past 24 hours., Continue to encourage use of BiPAP -Continue nebulizer therapy and supplemental oxygen as needed -BiPAP for respiratory support and correction of hypoventilation -Transfer to intensive care unit for more close monitoring ACUTE KIDNEY INJURY-secondary to intravascular volume depletion and hypotension. She is up on total body fluids, but continues to have some third spacing resulting in the intravascular volume depletion. Renal function modestly improved with better urine output over the past 24 hours. Creatinine further elevated with corresponding decrease in GFR. -Decrease IV fluids to 75 mL/h -Keep mean arterial pressure greater than 70 -Continue to hold antihypertensive therapy -Recheck kidney function in a.m. HYPOTENSION-secondary to intravascular volume depletion. There may also be a component of adrenal insufficiency. -IV fluids as above -Keep mean arterial pressure greater than 70 -Solu-Medrol 40 mg IV every 12 hours
[2018-02-19] MEDS: Sennosides 8.6 MG Tab PO SCH (20:54)
[2018-02-20] MEDS: methylPREDNISolone Sodium Succinate 40 MG/1 ML SDV IVPUSH SCH ×2 (01:37→14:03)
[2018-02-20] MEDS: Metoclopramide 10 MG/2 ML SDV IVPUSH SCH ×3 (01:37→17:23)
[2018-02-20] MEDS: Acetaminophen 325 MG Tab PO SCH ×4 (01:43→20:33)
[2018-02-20] MEDS: Ondansetron 4 MG/2 ML SDV IVPUSH PRN ×4 (02:04→21:09)
[2018-02-20] MEDS: Albuterol/Ipratropium 3.0-0.5 MG/3 ML Neb Soln INH SCH ×4 (07:24→20:34)
[2018-02-20] MEDS: Budesonide 0.5 MG/2 ML Neb Susp INH SCH ×2 (07:24→20:34)
[2018-02-20] MEDS: Carvedilol 3.125 MG Tab PO SCH ×2 (07:48→16:41)
[2018-02-20] MEDS: Pantoprazole 40 MG Tab.CR PO SCH (07:49)
[2018-02-20] MEDS: Levothyroxine 75 MCG Tab PO SCH (07:49)
--- NOTE | 2018-02-20 09:22 | PCM.CONSN ---
- General Info Date of Service: 02/20/18 Subjective Update: Fantasma has been stable over the past 24 hours, she has started to pass small amount of gas, approximately 600 mL of NG output over the past 24 hours. Respiratory status is further stabilized with decrease in respiratory rate and adequate saturations on current level of supplemental oxygen. Renal function has improved, creatinine is down to 1.5, GFR is up to 31. Functional Status: Reports: Pain Controlled, Ambulating - Review of Systems General: Reports: Weakness. Denies: Fever, Chills Pulmonary: Reports: Shortness of Breath. Denies: Pleuritic Chest Pain, Cough, Sputum, Hemoptysis, Wheezing Cardiovascular: Reports: Dyspnea on Exertion, Edema. Denies: Chest Pain, Palpitations, Orthopnea, PND Gastrointestinal: Reports: Abdominal Pain, Flatus. Denies: Hematochezia, Melena , Nausea, Vomiting - Patient Data Vitals - Most Recent: Last Vital Signs Temp 98.8 F 02/20/18 07:23 Pulse 60 02/20/18 07:48 Resp 20 02/20/18 07:23 BP 161/56 H 02/20/18 07:48 Pulse Ox 93 L 02/20/18 07:25 Weight - Most Recent: 107 lb 4.995 oz I&O - Last 24 Hours: Intake & Output 02/19/18 02/20/18 02/20/18 22:59 06:59 14:59 Intake Total 1018 888 Output Total 779 535 90 Balance 239 353 -90 Lab Results Last 24 Hours: Laboratory Results - last 24 hr 02/20/18 02/20/18 02/20/18 Range/Units 04:00 04:33 04:33 WBC 9.2 (4.5-11.0) K/uL RBC 3.77 (3.30-5.50) M/uL Hgb 12.1 (12.0-15.0) g/dL Hct 36.4 (36.0-48.0) % MCV 97 (80-98) fL MCH 32 H (27-31) pg MCHC 33 (32-36) % Plt Count 88 L (150-400) K/uL Add Manual Diff Yes Neutrophils % (Manual) 70 H (36-66) % Band Neutrophils % 23 H (5-11) % Lymphocytes % (Manual) 4 L (24-44) % Monocytes % (Manual) 2 (2-6) % Eosinophils % (Manual) 1 L (2-4) % PT 14.7 H (9.5-12.0) sec INR 1.36 H (0.80-1.20) Sodium (140-148) mmol/L Potassium (3.6-5.2) mmol/L Chloride (100-108) mmol/L Carbon Dioxide (21-32) mmol/L Anion Gap (5.0-14.0) mmol/L BUN (7-18) mg/dL Creatinine (0.6-1.0) mg/dL Est Cr Clr Drug Dosing mL/min Estimated GFR (MDRD) (>60) Glucose (74-106) mg/dL Calcium (8.5-10.1) mg/dL Total Bilirubin (0.2-1.0) mg/dL AST (15-37) U/L ALT (12-78) U/L Alkaline Phosphatase (46-116) U/L Total Protein (6.4-8.2) g/dL Albumin (3.4-5.0) g/dL Globulin (2.3-3.5) g/dL Albumin/Globulin Ratio (1.2-2.2) Theophylline 23.6 H* (10-20.0) ug/mL 02/20/18 Range/Units 08:07 WBC (4.5-11.0) K/uL RBC (3.30-5.50) M/uL Hgb (12.0-15.0) g/dL Hct (36.0-48.0) % MCV (80-98) fL MCH (27-31) pg MCHC (32-36) % Plt Count (150-400) K/uL Add Manual Diff Neutrophils % (Manual) (36-66) % Band Neutrophils % (5-11) % Lymphocytes % (Manual) (24-44) % Monocytes % (Manual) (2-6) % Eosinophils % (Manual) (2-4) % PT (9.5-12.0) sec INR (0.80-1.20) Sodium 144 (140-148) mmol/L Potassium 4.0 (3.6-5.2) mmol/L Chloride 107 (100-108) mmol/L Carbon Dioxide 23 (21-32) mmol/L Anion Gap 14.3 H (5.0-14.0) mmol/L BUN 38 H (7-18) mg/dL Creatinine 1.5 H (0.6-1.0) mg/dL Est Cr Clr Drug Dosing 20.77 mL/min Estimated GFR (MDRD) 33 L (>60) Glucose 157 H (74-106) mg/dL Calcium 8.6 (8.5-10.1) mg/dL Total Bilirubin 0.5 (0.2-1.0) mg/dL AST 54 H (15-37) U/L ALT 34 (12-78) U/L Alkaline Phosphatase 121 H (46-116) U/L Total Protein 5.0 L (6.4-8.2) g/dL Albumin 1.4 L (3.4-5.0) g/dL Globulin 3.6 H (2.3-3.5) g/dL Albumin/Globulin Ratio 0.4 L (1.2-2.2) Theophylline (10-20.0) ug/mL Kash Results Last 24 Hours: Microbiology 02/14/18 14:31 Gram Stain - Final Perirectal Wound Culture - Final Enterococcus Faecium YEAST Anaerobic Culture - Final NO GROWTH AFTER 3 DAYS Med Orders - Current: Current Medications Acetaminophen (Tylenol) 650 mg PO Q6H [facility] Last Admin: 02/20/18 07:49 Dose: 650 mg Albuterol/Ipratropium (Duoneb 3.0-0.5 Mg/3 Ml) 3 ml INH ASDIRECTED PRN PRN Reason: RESP Last Admin: 02/17/18 18:57 Dose: 3 ml Albuterol/Ipratropium (Duoneb 3.0-0.5 Mg/3 Ml) 3 ml INH QIDRT [facility] Last Admin: 02/20/18 07:24 Dose: 3 ml Allopurinol (Zyloprim) 150 mg PO DAILY [facility] Last Admin: 02/19/18 09:32 Dose: 150 mg Alvimopan (Entereg) 12 mg PO BID [facility] Stop: 02/21/18 09:01 Last Admin: 02/19/18 20:54 Dose: 12 mg Aspirin (Halfprin) 81 mg PO DAILY [facility] Last Admin: 02/19/18 09:30 Dose: 81 mg Bisacodyl (Dulcolax) 10 mg PO BID [facility] Last Admin: 02/19/18 20:54 Dose: 10 mg Bisacodyl (Dulcolax) 10 mg RECTAL TID [facility] Last Admin: 02/19/18 20:54 Dose: 10 mg Budesonide (Pulmicort) 0.5 mg INH BIDRT [facility] Last Admin: 02/20/18 07:24 Dose: 0.5 mg Carvedilol (Coreg) 3.125 mg PO BIDMEALS [facility] Last Admin: 02/20/18 07:48 Dose: 3.125 mg Erythromycin Ethylsuccinate (Eryped 400) 250 mg NGTUBE Q6H [facility] Hydromorphone HCl (Dilaudid Gage Designer 15 Mg In Ns 30 Ml) 0 mg IV ASDIRECTED PRN; Protocol PRN Reason: CONTRACT 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 SPECIALIST 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 CONTROL Last Admin: 02/19/18 06:32 Dose: 15 mg Hydroxyzine HCl (Vistaril) 0 mg IM Q4H PRN PRN Reason: PAIN Last Admin: 02/17/18 09:01 Dose: 50 mg Dextrose/Lactated Ringer's (Dextrose 5%-Lactated Ringers) 1,000 mls @ 75 mls/ hr IV ASDIRECTED [facility] Last Admin: 02/19/18 21:46 Dose: 75 mls/hr Isosorbide Mononitrate (Imdur) 30 mg PO DAILY [facility] Last Admin: 02/19/18 09:30 Dose: 30 mg Levothyroxine Sodium (Levothyroxine) 75 mcg PO ACBREAKFAST [facility] Last Admin: 02/20/18 07:49 Dose: 75 mcg Magnesium Hydroxide (Milk Of Magnesia) 30 ml PO ASDIRECTED PRN PRN Reason: * Methylprednisolone Sodium Succinate (Solu-Medrol) 40 mg IVPUSH Q12H [facility] Last Admin: 02/20/18 01:37 Dose: 40 mg Metoclopramide HCl (Reglan) 10 mg IVPUSH Q8H [facility] Last Admin: 02/20/18 01:37 Dose: 10 mg Naloxone HCl (Narcan) 0.1 mg IV ASDIRECTED PRN PRN Reason: decreased respiratory rate Nitroglycerin (Nitrostat) 0.4 mg SL ASDIRECTED PRN PRN Reason: CHEST PAIN Ondansetron HCl (Zofran) 4 mg IVPUSH Q4H PRN PRN Reason: NAUSEA Last Admin: 02/20/18 07:54 Dose: 4 mg Pantoprazole Sodium (Protonix) 40 mg PO ACBREAKFAST [facility] Last Admin: 02/20/18 07:49 Dose: 40 mg Senna (Senna) 17.2 mg PO BEDTIME [facility] Last Admin: 02/19/18 20:54 Dose: 17.2 mg Discontinued Medications Acetaminophen (Tylenol Extra Strength) 1,000 mg PO ONETIME ONE Stop: 02/14/18 08:16 Last Admin: 02/14/18 08:31 Dose: 1,000 mg Albuterol/Ipratropium (Duoneb 3.0-0.5 Mg/3 Ml) 3 ml NEB ONETIME ONE Stop: 02/14/18 09:46 Last Admin: 02/14/18 12:32 Dose: 3 ml Alvimopan (Entereg) 12 mg PO ONETIME ONE Stop: 02/14/18 08:16 Last Admin: 02/14/18 08:31 Dose: 12 mg Bupivacaine HCl (Marcaine 0.5%) Confirm Administered Dose 50 ml .ROUTE .STK-MED ONE Stop: 02/16/18 06:45 Last Admin: 02/16/18 07:44 Dose: 10 ml Cefoxitin Sodium (Mefoxin) Confirm Administered Dose 2 gm .ROUTE .STK-MED ONE Stop: 02/14/18 08:44 Ropivacaine 25 ml/Dexamethasone 8 mg/Epinephrine HCl 0.4 mg/ Sodium Chloride 52.6 ml 0 ml NERVRT ASDIRECTED ANGELA Neomycin/Polymyxin 1 ml/ (Sodium Chloride 500 ml) 0 ml IRR ONETIME ONE Stop: 02/14/18 08:16 Last Admin: 02/14/18 08:35 Dose: 750 irr Ropivacaine 25 ml/Dexamethasone 8 mg/Epinephrine HCl 0.4 mg/ Sodium Chloride 52.6 ml 0 ml NERVRT ASDIRECTED [facility]GEL[facility] Last Admin: 02/16/18 07:59 Dose: 80 syringe Dexamethasone (Dexamethasone) Confirm Administered Dose 4 mg .ROUTE .STK-MED ONE Stop: 02/14/18 09:36 Diphenhydramine HCl (Benadryl) 25 mg IVPUSH Q6H PRN PRN Reason: Itching Last Admin: 02/14/18 15:58 Dose: 25 mg Ephedrine Sulfate (Ephedrine Sulfate) Confirm Administered Dose 50 mg .ROUTE .STK-MED ONE Stop: 02/14/18 13:50 Fentanyl (Sublimaze) Confirm Administered Dose 250 mcg .ROUTE .[facility]-MED ONE Stop: 02/14/18 09:36 Fentanyl (Sublimaze) Confirm Administered Dose 100 mcg .ROUTE .STK-MED ONE Stop: 02/16/18 07:10 Furosemide (Lasix) 40 mg PO DAILY [facility] Last Admin: 02/18/18 09:45 Dose: 40 mg Furosemide (Lasix) 20 mg IVPUSH ONETIME STA Stop: 02/17/18 20:03 Last Admin: 02/17/18 20:30 Dose: 20 mg Furosemide (Lasix) 40 mg IVPUSH NOW ONE Stop: 02/17/18 21:33 Last Admin: 02/17/18 21:53 Dose: 40 mg Glucagon (Glucagen) Confirm Administered Dose 1 mg .ROUTE .STK-MED ONE Stop: 02/14/18 14:26 Glycopyrrolate (Robinul) Confirm Administered Dose 1 mg .ROUTE .[facility]-MED ONE Stop: 02/14/18 09:36 Hydromorphone HCl (Dilaudid Gage Designer 15 Mg In Ns 30 Ml) Confirm Administered Dose 15 mg IV .[facility]-MED ONE Stop: 02/17/18 10:18 Last Admin: 02/17/18 10:31 Dose: Not Given Hydroxyzine HCl (Vistaril) 75 mg IM ONETIME ONE Stop: 02/17/18 11:01 Last Admin: 02/17/18 11:00 Dose: 75 mg Dextrose/Lactated Ringer's (Dextrose 5%-Lactated Ringers) 1,000 mls @ 100 mls/ hr IV ASDIRECTED [facility] Last Admin: 02/14/18 12:44 Dose: 100 mls/hr Meropenem 500 mg/ Sodium (Chloride) 50 mls @ 100 mls/hr IV ONETIME ONE Stop: 02/14/18 10:14 Last Admin: 02/14/18 12:59 Dose: 100 mls/hr Fentanyl 2,500 mcg/ Sodium (Chloride) 250 mls @ 0 mls/hr EPIDUR TITRATE ANGELA; Protocol Fentanyl Citrate 2,500 mcg/ (Sodium Chloride) 250 mls @ 0 mls/hr EPIDUR TITRATE ANGELA; Protocol Last Admin: 02/15/18 15:05 Dose: 8 mls/hr, 8 mls/hr Lactated Ringer's (Ringers, Lactated) Confirm Administered Dose 1,000 mls @ as directed .ROUTE .K-MED ONE Stop: 02/14/18 14:38 Dextrose/Lactated Ringer's (Dextrose 5%-Lactated Ringers) 1,000 mls @ 100 mls/ hr IV ASDIRECTED ANGELA Dextrose/Lactated Ringer's (Dextrose 5%-Lactated Ringers) 1,000 mls @ 150 mls/ hr IV ASDIRECTED [facility] Last Admin: 02/15/18 02:48 Dose: 150 mls/hr Cefoxitin Sodium 2 gm/ Sodium (Chloride) 50 mls @ 100 mls/hr IV Q6H [facility] Last Admin: 02/17/18 08:48 Dose: 100 mls/hr Potassium Chloride/Dextrose/Sod Cl (D5 1/2 Ns W/ 20 Meq/L Kcl) 1,000 mls @ 80 mls/hr IV ASDIRECTED [facility]GEL[facility] Last Admin: 02/15/18 09:37 Dose: 80 mls/hr Naloxone HCl 0.4 mg/ Potassium (Chloride/Dextrose/Sod Cl) 1,001 mls @ 80.08 mls /hr IV ASDIRECTED [facility] Last Admin: 02/16/18 04:38 Dose: 80.08 mls/hr Fentanyl Citrate 2,500 mcg/ (Sodium Chloride) 250 mls @ 4 mls/hr EPIDUR TITRATE ANGELA; Protocol Last Admin: 02/15/18 22:56 Dose: 4 ml/hr, 4 mls/hr Potassium Chloride/Dextrose/Sod Cl (D5 1/2 Ns W/ 20 Meq/L Kcl) 1,000 mls @ 40 mls/hr IV ASDIRECTED [facility]GEL[facility] Last Admin: 02/17/18 10:12 Dose: 100 mls/hr Potassium Phosphate 30 mmole/ (Sodium Chloride) 160 mls @ 54 mls/hr IV Q3H [facility] Stop: 02/17/18 16:58 Last Admin: 02/17/18 16:49 Dose: 54 mls/hr Dextrose/Lactated Ringer's (Dextrose 5%-Lactated Ringers) 1,000 mls @ 100 mls/ hr IV ASDIRECTED [facility] Last Admin: 02/19/18 08:52 Dose: 100 mls/hr Lactated Ringer's (Ringers, Lactated) 1,000 mls @ 250 mls/hr IV ASDIRECTED [facility] Stop: 02/18/18 14:31 Last Admin: 02/18/18 11:28 Dose: 250 mls/hr Acetaminophen 1,000 mg/ Premix 100 mls @ 400 mls/hr IV NOW ONE Stop: 02/18/18 11:16 Last Admin: 02/18/18 11:33 Dose: Not Given Ibuprofen (Motrin) 400 mg PO Q6H [facility] Last Admin: 02/17/18 08:22 Dose: 400 mg Ketamine HCl (Ketalar) 25 mg IV ASDIRECTED [facility] Lidocaine HCl (Xylocaine-Mpf 1%) Confirm Administered Dose 5 ml .ROUTE .STK-MED ONE Stop: 02/14/18 12:41 Last Admin: 02/14/18 16:48 Dose: Not Given Lidocaine HCl (Xylocaine-Mpf 1%) 0.1 ml INJECT ONETIME ONE Stop: 02/14/18 12:43 Last Admin: 02/14/18 16:48 Dose: Not Given Lidocaine/Epinephrine (Xylocaine 1% With Epinephrine 1:100,000) Confirm Administered Dose 50 ml .ROUTE .STK-MED ONE Stop: 02/16/18 06:45 Last Admin: 02/16/18 07:44 Dose: 10 ml Magnesium Hydroxide (Milk Of Magnesia) 30 ml PO BID [facility] Stop: 02/16/18 21:01 Last Admin: 02/16/18 20:18 Dose: 30 ml Meperidine HCl (Demerol) 75 mg IM ONETIME ONE Stop: 02/17/18 11:01 Last Admin: 02/17/18 11:00 Dose: 75 mg Meropenem (Merrem) Confirm Administered Dose 500 mg .ROUTE .STK-MED ONE Stop: 02/14/18 08:44 Last Admin: 02/14/18 14:30 Dose: 500 mg Meropenem (Merrem) Confirm Administered Dose 500 mg .ROUTE .STK-MED ONE Stop: 02/16/18 06:45 Last Admin: 02/16/18 07:49 Dose: 500 mg Naloxone HCl (Narcan) 0.1 mg IVPUSH Q5M PRN PRN Reason: RESP RATE LESS THAN 6/MINUTE Last Admin: 02/15/18 15:23 Dose: 0.1 mg Neostigmine Methylsulfate (Neostigmine) Confirm Administered Dose 5 mg .ROUTE .STK-MED ONE Stop: 02/14/18 09:36 Ondansetron HCl (Zofran) Confirm Administered Dose 4 mg .ROUTE .STK-MED ONE Stop: 02/14/18 09:36 Pantoprazole Sodium (Protonix Iv) 40 mg IV Q24H [facility] Last Admin: 02/16/18 17:44 Dose: 40 mg Trans-Derm Scop (Patch Removal) 0 each TOP ONETIME ONE Stop: 02/16/18 14:01 Last Admin: 02/16/18 15:05 Dose: Not Given Prednisone (Prednisone) 2.5 mg PO DAILY [facility] Last Admin: 02/18/18 09:45 Dose: 2.5 mg Prednisone (Prednisone) 10 mg PO DAILY [facility] Last Admin: 02/18/18 11:38 Dose: 10 mg Propofol (Diprivan 20 Ml) Confirm Administered Dose 200 mg .ROUTE .STK-MED ONE Stop: 02/14/18 09:36 Propofol (Diprivan 20 Ml) Confirm Administered Dose 200 mg .ROUTE .STK-MED ONE Stop: 02/16/18 07:10 Rocuronium Pooler (Zemuron) Confirm Administered Dose 50 mg .ROUTE .STK-MED ONE Stop: 02/14/18 09:36 Scopolamine (Transderm-Scop) 1.5 mg TOP ONETIME ONE Stop: 02/14/18 08:16 Last Admin: 02/14/18 08:32 Dose: 1.5 mg Senna (Senna) 8.6 mg PO BEDTIME [facility] Last Admin: 02/15/18 21:24 Dose: 8.6 mg Succinylcholine Chloride (Quelicin) Confirm Administered Dose 200 mg .ROUTE .STK -MED ONE Stop: 02/14/18 09:36 Theophylline (Pablito-24) 400 mg PO DAILY [facility] Last Admin: 02/19/18 09:31 Dose: 400 mg Tramadol HCl (Ultram) 50 mg PO Q6H PRN PRN Reason: PAIN Last Admin: 02/17/18 04:00 Dose: 50 mg - Exam Quality Assessment: Supplemental Oxygen, Urine Catheter, DVT Prophylaxis General: Alert, Oriented, Cooperative, Mild Distress Lungs: Decreased Breath Sounds. No: Crackles, Rales, Rhonchi, Rub, Wheezing Cardiovascular: Regular Rate, Regular Rhythm, No Murmurs GI/Abdominal Exam: Soft, No Organomegaly, Distended, Tender. No: Guarding, Rigid, Rebound Extremities: Non-Tender, Pedal Edema Skin: Warm, Dry, Intact Consult PN Assessment/Plan Procedures: Procedures AGENT NOS ASSAY W/OPTIC (01/19/18) AIRWAY INHALATION TREATMENT (01/19/18) ASSAY OF AMYLASE (01/02/18) ASSAY OF LIPASE (01/19/18) ASSAY OF MAGNESIUM (01/19/18) ASSAY OF PHOSPHORUS (01/19/18) ASSAY OF SERUM POTASSIUM (01/19/18) ASSAY THYROID STIM HORMONE (01/19/18) C DIFF AMPLIFIED PROBE (01/19/18) C-REACTIVE PROTEIN (01/19/18) CARDIOVASCULAR STRESS TEST (04/12/16) CHEST WALL MANIPULATION (12/19/17) CHEST WALL MANIPULATION (12/19/17) COMP SCREEN MAMMOGRAM ADD-ON (04/05/15) COMPLETE CBC AUTOMATED (01/19/18) COMPLETE CBC W/AUTO DIFF WBC (01/19/18) COMPREHEN METABOLIC PANEL (01/19/18) CT ABD & PELV W/CONTRAST (01/19/18) CT ABD & PELVIS W/O CONTRAST (01/02/18) CULTURE AEROBIC IDENTIFY (12/19/17) CULTURE OTHR SPECIMN AEROBIC (12/19/17) CULTURE SCREEN ONLY (10/09/17) EGD BIOPSY SINGLE/MULTIPLE (10/09/17) EMERGENCY DEPT VISIT (01/19/18) EMERGENCY DEPT VISIT (01/19/18) HT MUSCLE IMAGE SPECT MULT (04/12/16) HYDRATE IV INFUSION ADD-ON (01/19/18) LEUKOCYTE ASSESSMENT FECAL (01/02/18) MANUAL THERAPY 1/> REGIONS (12/17/17) METABOLIC PANEL TOTAL CA (01/19/18) NEUROMUSCULAR REEDUCATION (12/17/17) OVA AND PARASITES SMEARS (01/19/18) PROTHROMBIN TIME (01/19/18) PT EVAL MOD COMPLEX 30 MIN (08/13/17) ROUTINE VENIPUNCTURE (01/19/18) SMEAR COMPLEX STAIN (01/19/18) SMEAR GRAM STAIN (12/19/17) STOOL CULTR AEROBIC BACT EA (01/19/18) THER/PROPH/DIAG INJ IV PUSH (01/19/18) THERAPEUTIC EXERCISES (12/17/17) TISSUE EXAM BY PATHOLOGIST (10/09/17) TX/PRO/DX INJ SAME DRUG METROLOGY TECHNICIAN (01/02/18) ULTRASOUND THERAPY (12/17/17) X-RAY EXAM ABDOMEN 2 VIEWS (01/02/18) X-RAY EXAM OF SHOULDER (07/26/17) Problem List Initiated/Reviewed/Updated: Yes My Orders Last 24 Hours: My Active Orders 02/19/18 09:45 Dextrose 5%-Lactated Ringers 1,000 ml IV ASDIRECTED 02/21/18 05:00 CBC WITH AUTO DIFF [HEME] Timed COMPREHENSIVE METABOLIC PN,CMP [CHEM] Timed INR,PT,PROTHROMBIN TIME [COAG] Timed MAGNESIUM [CHEM] Timed PHOSPHORUS [CHEM] Timed 02/21/18 05:11 THEOPHYLLINE [CHEM] AM Plan: ASSESSMENT AND RECOMMENDATIONS STATUS POST EXPLORATORY LAPAROTOMY-please see operative note for details concerning surgical procedure. Persistent ileus, has started to pass a small amount of gas. -Postoperative management per Dr. Pate HYPOXIC RESPIRATORY FAILURE-multifactorial, related to underlying COPD, and hypoventilation secondary to pain related to abdominal incision, as well as sedating effect of pain medications. Good improvement in respiratory status over the past 48 hours with decrease in respiratory rate and increase in saturations. -Continue nebulizer therapy and supplemental oxygen as needed ACUTE KIDNEY INJURY-secondary to intravascular volume depletion and hypotension. She is up on total body fluids, but continues to have some third spacing resulting in the intravascular volume depletion. Renal function modestly improved with better urine output over the past 48 hours. Creatinine improved from yesterday with improvement in GFR. -Continue IV fluids at 75 mL/h -Keep mean arterial pressure greater than 70 -Recheck kidney function in a.m.
[2018-02-20] MEDS: Erythromycin Ethylsuccinate Susp 400 MG/5 ML 100 ML Bottle NGTUBE SCH ×3 (09:38→22:34)
[2018-02-20] MEDS: Isosorbide Mononitrate 30 MG Tab.ER PO SCH (09:38)
[2018-02-20] MEDS: Bisacodyl 5 MG Tab PO SCH ×2 (09:38→20:33)
[2018-02-20] MEDS: Aspirin 81 MG Tab.EC PO SCH (09:38)
[2018-02-20] MEDS: Allopurinol 300 MG Tab PO SCH (09:39)
[2018-02-20] MEDS: Bisacodyl 10 MG Supp RECTAL SCH ×3 (09:39→20:34)
[2018-02-20] MEDS: Dextrose 5%-Lactated Ringers 1,000 ML IV SCH ×2 (10:15→23:39)
--- NOTE | 2018-02-20 16:41 | PN ---
DATE OF SERVICE: 02/19/2018 The patient has been afebrile with stable vital signs. Heart rate in 110s, blood pressure is intentionally let up to become somewhat elevated per Dr. Lua to increase her kidney perfusion, and is presently 150/69. She is alert. Respiratory status appears to be reasonably stable. O2 saturations on the 4 L nasal cannula is 92%. Urine output in general, has been satisfactory, recorded at 1026 mL over the last 24 hours. Labs show white count is 7900, hemoglobin was 13. Creatinine is up somewhat further at 2.0. BNP is up quite a bit at 8000, somewhat intentional per Dr. Lua as he felt she was somewhat volume depleted. The patient did not tolerate the use of BiPAP satisfactory in terms of respiratory status. We will continue present supportive care per Dr. Lua and if her abdomen continues to have an ileus pattern and we will continue the NG tube and hopefully we will be able to get the bowels moving in the next day or two. Robert Pate MD /[id number]
--- NOTE | 2018-02-20 17:07 | PN ---
DATE OF SERVICE: 02/20/2018 HISTORY: The patient has been clinically stable. Her respiratory status appeared to be reasonably good. The base problem is still lack of GI tract activity. She has passed a little bit of gas currently but no bowel movement and remains fairly distended. NG output is not too high but if the NG tube becomes plugged, she does becomes nauseated fairly quickly and the nausea cleared when the NG tube is made functional once again. The abdominal exam otherwise is somewhat distended, but otherwise unremarkable. The plan at this point will be to continue to Dulcolax suppositories. I think we will add some erythromycin via NG tube clipped and clamped for [id number] so we can get some effect from the erythromycin. Unfortunately, the IV erythromycin is presently not available. If we get another day or so without moving bowels, we might try Fleets Enema to get things started as well. Robert Pate MD /[id number]
[2018-02-20] MEDS: Sennosides 8.6 MG Tab PO SCH (20:33)
[2018-02-21] MEDS: methylPREDNISolone Sodium Succinate 40 MG/1 ML SDV IVPUSH SCH ×2 (01:27→13:49)
[2018-02-21] MEDS: Metoclopramide 10 MG/2 ML SDV IVPUSH SCH ×3 (01:28→17:44)
[2018-02-21] MEDS: Acetaminophen 325 MG Tab PO SCH ×4 (02:01→20:54)
[2018-02-21] MEDS: Erythromycin Ethylsuccinate Susp 400 MG/5 ML 100 ML Bottle NGTUBE SCH ×4 (04:14→21:04)
[2018-02-21] MEDS: Albuterol/Ipratropium 3.0-0.5 MG/3 ML Neb Soln INH SCH ×4 (06:59→21:00)
[2018-02-21] MEDS: Budesonide 0.5 MG/2 ML Neb Susp INH SCH ×2 (06:59→21:00)
[2018-02-21] MEDS: Ondansetron 4 MG/2 ML SDV IVPUSH PRN ×3 (07:31→18:55)
[2018-02-21] MEDS: Carvedilol 3.125 MG Tab PO SCH ×2 (07:46→17:39)
[2018-02-21] MEDS: Levothyroxine 75 MCG Tab PO SCH (07:46)
[2018-02-21] MEDS: Pantoprazole 40 MG Tab.CR PO SCH (07:46)
[2018-02-21] MEDS: Bisacodyl 5 MG Tab PO SCH ×2 (08:05→20:54)
[2018-02-21] MEDS: Bisacodyl 10 MG Supp RECTAL SCH ×3 (08:05→21:01)
[2018-02-21] MEDS: Isosorbide Mononitrate 30 MG Tab.ER PO SCH (08:06)
[2018-02-21] MEDS: Aspirin 81 MG Tab.EC PO SCH (08:06)
[2018-02-21] MEDS: Allopurinol 300 MG Tab PO SCH (08:06)
[2018-02-21] MEDS: Bisacodyl 10 MG Supp RECTAL ONE ×2 (08:46→09:37)
[2018-02-21] MEDS ORDERED: Dextrose 5%-Lactated Ringers 1,000 ML IV SCH (09:30)
--- NOTE | 2018-02-21 09:42 | PCM.CONSN ---
- General Info Date of Service: 02/21/18 Subjective Update: Fantasma reports that she is not feeling as well this morning, did not have a good night, unable to sleep and feels very tired this morning. Respiratory status has been stable since yesterday, intake was over output for the past 24 hours. Renal function is shown further improvement since yesterday. - Review of Systems General: Reports: Weakness. Denies: Fever, Chills Pulmonary: Reports: No Symptoms Cardiovascular: Reports: No Symptoms Gastrointestinal: Reports: Abdominal Pain, Flatus. Denies: Difficulty Swallowing, Nausea, Vomiting - Patient Data Vitals - Most Recent: Last Vital Signs Temp 98.2 F 02/21/18 08:00 Pulse 107 H 02/21/18 08:00 Resp 16 02/21/18 08:00 BP 162/87 H 02/21/18 08:06 Pulse Ox 95 02/21/18 08:00 Weight - Most Recent: 107 lb 4.995 oz I&O - Last 24 Hours: Intake & Output 02/20/18 02/21/18 02/21/18 22:59 06:59 14:59 Intake Total 1163 1047 Output Total 395 625 230 Balance 768 422 -230 Lab Results Last 24 Hours: Laboratory Results - last 24 hr 02/21/18 02/21/18 02/21/18 Range/Units 04:45 04:45 04:45 WBC 9.2 (4.5-11.0) K/uL RBC 3.60 (3.30-5.50) M/uL Hgb 11.2 L (12.0-15.0) g/dL Hct 34.3 L (36.0-48.0) % MCV 95 (80-98) fL MCH 31 (27-31) pg MCHC 33 (32-36) % Plt Count 55 L (150-400) K/uL Neut % (Auto) [employer] Professional Lymph % (Auto) [employer] Professional Mower % (Auto) [employer] Professional Eos % (Auto) [employer] Professional Baso % (Auto) [employer] Professional Add Manual Diff Yes Neutrophils % (Manual) 76 H (36-66) % Band Neutrophils % 18 H (5-11) % Lymphocytes % (Manual) 4 L (24-44) % Monocytes % (Manual) 2 (2-6) % PT 14.7 H (9.5-12.0) sec INR 1.36 H (0.80-1.20) Sodium 145 (140-148) mmol/L Potassium 3.3 L (3.6-5.2) mmol/L Chloride 109 H (100-108) mmol/L Carbon Dioxide 26 (21-32) mmol/L Anion Gap 13.3 (5.0-14.0) mmol/L BUN 29 H (7-18) mg/dL Creatinine 1.1 H (0.6-1.0) mg/dL Est Cr Clr Drug Dosing 28.32 mL/min Estimated GFR (MDRD) 48 L (>60) Glucose 178 H (74-106) mg/dL Calcium 8.3 L (8.5-10.1) mg/dL Phosphorus 3.1 (2.5-4.9) mg/dL Magnesium 1.9 (1.8-2.4) mg/dL Total Bilirubin 0.6 (0.2-1.0) mg/dL AST 54 H (15-37) U/L ALT 35 (12-78) U/L Alkaline Phosphatase 117 H (46-116) U/L Total Protein 4.8 L (6.4-8.2) g/dL Albumin 1.4 L (3.4-5.0) g/dL Globulin 3.4 (2.3-3.5) g/dL Albumin/Globulin Ratio 0.4 L (1.2-2.2) Theophylline (10-20.0) ug/mL 02/21/18 Range/Units 04:45 WBC (4.5-11.0) K/uL RBC (3.30-5.50) M/uL Hgb (12.0-15.0) g/dL Hct (36.0-48.0) % MCV (80-98) fL MCH (27-31) pg MCHC (32-36) % Plt Count (150-400) K/uL Neut % (Auto) Lymph % (Auto) Mower % (Auto) Eos % (Auto) Baso % (Auto) Add Manual Diff Neutrophils % (Manual) (36-66) % Band Neutrophils % (5-11) % Lymphocytes % (Manual) (24-44) % Monocytes % (Manual) (2-6) % PT (9.5-12.0) sec INR (0.80-1.20) Sodium (140-148) mmol/L Potassium (3.6-5.2) mmol/L Chloride (100-108) mmol/L Carbon Dioxide (21-32) mmol/L Anion Gap (5.0-14.0) mmol/L BUN (7-18) mg/dL Creatinine (0.6-1.0) mg/dL Est Cr Clr Drug Dosing mL/min Estimated GFR (MDRD) (>60) Glucose (74-106) mg/dL Calcium (8.5-10.1) mg/dL Phosphorus (2.5-4.9) mg/dL Magnesium (1.8-2.4) mg/dL Total Bilirubin (0.2-1.0) mg/dL AST (15-37) U/L ALT (12-78) U/L Alkaline Phosphatase (46-116) U/L Total Protein (6.4-8.2) g/dL Albumin (3.4-5.0) g/dL Globulin (2.3-3.5) g/dL Albumin/Globulin Ratio (1.2-2.2) Theophylline 11.2 (10-20.0) ug/mL Med Orders - Current: Current Medications Acetaminophen (Tylenol) 650 mg PO Q6H [facility] Last Admin: 02/21/18 07:46 Dose: 650 mg Albuterol/Ipratropium (Duoneb 3.0-0.5 Mg/3 Ml) 3 ml INH ASDIRECTED PRN PRN Reason: RESP Last Admin: 02/17/18 18:57 Dose: 3 ml Albuterol/Ipratropium (Duoneb 3.0-0.5 Mg/3 Ml) 3 ml INH QIDRT [facility] Last Admin: 02/21/18 06:59 Dose: 3 ml Allopurinol (Zyloprim) 150 mg PO DAILY [facility] Last Admin: 02/21/18 08:06 Dose: 150 mg Aspirin (Halfprin) 81 mg PO DAILY [facility] Last Admin: 02/21/18 08:06 Dose: 81 mg Bisacodyl (Dulcolax) 10 mg PO BID [facility] Last Admin: 02/21/18 08:05 Dose: 10 mg Bisacodyl (Dulcolax) 10 mg RECTAL TID [facility] Last Admin: 02/21/18 08:05 Dose: 10 mg Bisacodyl (Dulcolax) 10 mg RECTAL ONETIME ONE Stop: 02/21/18 10:01 Last Admin: 02/21/18 08:46 Dose: 10 mg Budesonide (Pulmicort) 0.5 mg INH BIDRT [facility] Last Admin: 02/21/18 06:59 Dose: 0.5 mg Carvedilol (Coreg) 3.125 mg PO BIDMEALS [facility] Last Admin: 02/21/18 07:46 Dose: 3.125 mg Erythromycin Ethylsuccinate (Eryped 400) 250 mg NGTUBE Q6H [facility] Last Admin: 02/21/18 04:14 Dose: 250 mg Furosemide (Lasix) 20 mg IVPUSH NOW ONE Stop: 02/21/18 10:01 Hydromorphone HCl (Dilaudid Hot [employer] Worker 15 Mg In Ns 30 Ml) 0 mg IV ASDIRECTED PRN; Protocol 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 Last Admin: 02/19/18 06:32 Dose: 15 mg Hydroxyzine HCl (Vistaril) 0 mg IM Q4H PRN PRN Reason: PAIN Last Admin: 02/17/18 09:01 Dose: 50 mg Potassium Phosphate 22.5 mmole (/ Sodium Chloride) 257.5 mls @ 86 mls/hr IV Q3H [facility] Stop: 02/21/18 15:59 Dextrose/Lactated Ringer's (Dextrose 5%-Lactated Ringers) 1,000 mls @ 50 mls/ hr IV ASDIRECTED [facility] Isosorbide Mononitrate (Imdur) 30 mg PO DAILY [facility] Last Admin: 02/21/18 08:06 Dose: 30 mg Levothyroxine Sodium (Levothyroxine) 75 mcg PO ACBREAKFAST [facility] Last Admin: 02/21/18 07:46 Dose: 75 mcg Magnesium Hydroxide (Milk Of Magnesia) 30 ml PO ASDIRECTED PRN PRN Reason: * Methylprednisolone Sodium Succinate (Solu-Medrol) 40 mg IVPUSH Q12H [facility] Last Admin: 02/21/18 01:27 Dose: 40 mg Metoclopramide HCl (Reglan) 10 mg IVPUSH Q8H [facility] Last Admin: 02/21/18 01:28 Dose: 10 mg Naloxone HCl (Narcan) 0.1 mg IV ASDIRECTED PRN PRN Reason: decreased respiratory rate Nitroglycerin (Nitrostat) 0.4 mg SL ASDIRECTED PRN PRN Reason: CHEST PAIN Ondansetron HCl (Zofran) 4 mg IVPUSH Q4H PRN PRN Reason: NAUSEA Last Admin: 02/21/18 07:31 Dose: 4 mg Pantoprazole Sodium (Protonix) 40 mg PO ACBREAKFAST [facility] Last Admin: 02/21/18 07:46 Dose: 40 mg Senna (Senna) 17.2 mg PO BEDTIME [facility] Last Admin: 02/20/18 20:33 Dose: 17.2 mg Discontinued Medications Acetaminophen (Tylenol Extra Strength) 1,000 mg PO ONETIME ONE Stop: 02/14/18 08:16 Last Admin: 02/14/18 08:31 Dose: 1,000 mg Albuterol/Ipratropium (Duoneb 3.0-0.5 Mg/3 Ml) 3 ml NEB ONETIME ONE Stop: 02/14/18 09:46 Last Admin: 02/14/18 12:32 Dose: 3 ml Alvimopan (Entereg) 12 mg PO ONETIME ONE Stop: 02/14/18 08:16 Last Admin: 02/14/18 08:31 Dose: 12 mg Alvimopan (Entereg) 12 mg PO BID [facility] Stop: 02/21/18 09:01 Last Admin: 02/21/18 08:05 Dose: 12 mg Bupivacaine HCl (Marcaine 0.5%) Confirm Administered Dose 50 ml .ROUTE .STK-MED ONE Stop: 02/16/18 06:45 Last Admin: 02/16/18 07:44 Dose: 10 ml Cefoxitin Sodium (Mefoxin) Confirm Administered Dose 2 gm .ROUTE .STK-MED ONE Stop: 02/14/18 08:44 Ropivacaine 25 ml/Dexamethasone 8 mg/Epinephrine HCl 0.4 mg/ Sodium Chloride 52.6 ml 0 ml NERVRT ASDIRECTED [facility] Neomycin/Polymyxin 1 ml/ (Sodium Chloride 500 ml) 0 ml IRR ONETIME ONE Stop: 02/14/18 08:16 Last Admin: 02/14/18 08:35 Dose: 750 irr Ropivacaine 25 ml/Dexamethasone 8 mg/Epinephrine HCl 0.4 mg/ Sodium Chloride 52.6 ml 0 ml NERVRT ASDIRECTED [facility] Last Admin: 02/16/18 07:59 Dose: 80 syringe Dexamethasone (Dexamethasone) Confirm Administered Dose 4 mg .ROUTE .STK-MED ONE Stop: 02/14/18 09:36 Diphenhydramine HCl (Benadryl) 25 mg IVPUSH Q6H PRN PRN Reason: Itching Last Admin: 02/14/18 15:58 Dose: 25 mg Ephedrine Sulfate (Ephedrine Sulfate) Confirm Administered Dose 50 mg .ROUTE .STK-MED ONE Stop: 02/14/18 13:50 Fentanyl (Sublimaze) Confirm Administered Dose 250 mcg .ROUTE .STK-MED ONE Stop: 02/14/18 09:36 Fentanyl (Sublimaze) Confirm Administered Dose 100 mcg .ROUTE .STK-MED ONE Stop: 02/16/18 07:10 Furosemide (Lasix) 40 mg PO DAILY [facility] Last Admin: 02/18/18 09:45 Dose: 40 mg Furosemide (Lasix) 20 mg IVPUSH ONETIME STA Stop: 02/17/18 20:03 Last Admin: 02/17/18 20:30 Dose: 20 mg Furosemide (Lasix) 40 mg IVPUSH NOW ONE Stop: 02/17/18 21:33 Last Admin: 02/17/18 21:53 Dose: 40 mg Glucagon (Glucagen) Confirm Administered Dose 1 mg .ROUTE .STK-MED ONE Stop: 02/14/18 14:26 Glycopyrrolate (Robinul) Confirm Administered Dose 1 mg .ROUTE .STK-MED ONE Stop: 02/14/18 09:36 Hydromorphone HCl (Dilaudid Hot Tamale Worker 15 Mg In Ns 30 Ml) Confirm Administered Dose 15 mg IV .STK-MED ONE Stop: 02/17/18 10:18 Last Admin: 02/17/18 10:31 Dose: Not Given Hydroxyzine HCl (Vistaril) 75 mg IM ONETIME ONE Stop: 02/17/18 11:01 Last Admin: 02/17/18 11:00 Dose: 75 mg Dextrose/Lactated Ringer's (Dextrose 5%-Lactated Ringers) 1,000 mls @ 100 mls/ hr IV ASDIRECTED [facility] Last Admin: 02/14/18 12:44 Dose: 100 mls/hr Meropenem 500 mg/ Sodium (Chloride) 50 mls @ 100 mls/hr IV ONETIME ONE Stop: 02/14/18 10:14 Last Admin: 02/14/18 12:59 Dose: 100 mls/hr Fentanyl 2,500 mcg/ Sodium (Chloride) 250 mls @ 0 mls/hr EPIDUR TITRATE [facility]; Protocol Fentanyl Citrate 2,500 mcg/ (Sodium Chloride) 250 mls @ 0 mls/hr EPIDUR TITRATE [facility]; Protocol Last Admin: 02/15/18 15:05 Dose: 8 mls/hr, 8 mls/hr Lactated Ringer's (Ringers, Lactated) Confirm Administered Dose 1,000 mls @ as directed .ROUTE .K-MED ONE Stop: 02/14/18 14:38 Dextrose/Lactated Ringer's (Dextrose 5%-Lactated Ringers) 1,000 mls @ 100 mls/ hr IV ASDIRECTED [facility] Dextrose/Lactated Ringer's (Dextrose 5%-Lactated Ringers) 1,000 mls @ 150 mls/ hr IV ASDIRECTED [facility] Last Admin: 02/15/18 02:48 Dose: 150 mls/hr Cefoxitin Sodium 2 gm/ Sodium (Chloride) 50 mls @ 100 mls/hr IV Q6H [facility] Last Admin: 02/17/18 08:48 Dose: 100 mls/hr Potassium Chloride/Dextrose/Sod Cl (D5 1/2 Ns W/ 20 Meq/L Kcl) 1,000 mls @ 80 mls/hr IV ASDIRECTED [facility] Last Admin: 02/15/18 09:37 Dose: 80 mls/hr Naloxone HCl 0.4 mg/ Potassium (Chloride/Dextrose/Sod Cl) 1,001 mls @ 80.08 mls /hr IV ASDIRECTED [facility] Last Admin: 02/16/18 04:38 Dose: 80.08 mls/hr Fentanyl Citrate 2,500 mcg/ (Sodium Chloride) 250 mls @ 4 mls/hr EPIDUR TITRATE [facility]; Protocol Last Admin: 02/15/18 22:56 Dose: 4 ml/hr, 4 mls/hr Potassium Chloride/Dextrose/Sod Cl (D5 1/2 Ns W/ 20 Meq/L Kcl) 1,000 mls @ 40 mls/hr IV ASDIRECTED [facility] Last Admin: 02/17/18 10:12 Dose: 100 mls/hr Potassium Phosphate 30 mmole/ (Sodium Chloride) 160 mls @ 54 mls/hr IV Q3H [facility] Stop: 02/17/18 16:58 Last Admin: 02/17/18 16:49 Dose: 54 mls/hr Dextrose/Lactated Ringer's (Dextrose 5%-Lactated Ringers) 1,000 mls @ 100 mls/ hr IV ASDIRECTED [facility] Last Admin: 02/19/18 08:52 Dose: 100 mls/hr Lactated Ringer's (Ringers, Lactated) 1,000 mls @ 250 mls/hr [facility] Stop: 02/18/18 14:31 Last Admin: 02/18/18 11:28 Dose: 250 mls/hr Acetaminophen 1,000 mg/ Premix 100 mls @ 400 mls/hr IV NOW ONE Stop: 02/18/18 11:16 Last Admin: 02/18/18 11:33 Dose: Not Given Dextrose/Lactated Ringer's (Dextrose 5%-Lactated Ringers) 1,000 mls @ 75 mls/ hr [facility] Last Admin: 02/20/18 23:39 Dose: 75 mls/hr Ibuprofen (Motrin) 400 mg PO Q6H [facility] Last Admin: 02/17/18 08:22 Dose: 400 mg Ketamine HCl (Ketalar) 25 mg IV ASDIRECTED [facility] Lidocaine HCl (Xylocaine-Mpf 1%) Confirm Administered Dose 5 ml .ROUTE .STK-MED ONE Stop: 02/14/18 12:41 Last Admin: 02/14/18 16:48 Dose: Not Given Lidocaine HCl (Xylocaine-Mpf 1%) 0.1 ml INJECT ONETIME ONE Stop: 02/14/18 12:43 Last Admin: 02/14/18 16:48 Dose: Not Given Lidocaine/Epinephrine (Xylocaine 1% With Epinephrine 1:100,000) Confirm Administered Dose 50 ml .ROUTE .STK-MED ONE Stop: 02/16/18 06:45 Last Admin: 02/16/18 07:44 Dose: 10 ml Magnesium Hydroxide (Milk Of Magnesia) 30 ml PO BID [facility] Stop: 02/16/18 21:01 Last Admin: 02/16/18 20:18 Dose: 30 ml Meperidine HCl (Demerol) 75 mg IM ONETIME ONE Stop: 02/17/18 11:01 Last Admin: 02/17/18 11:00 Dose: 75 mg Meropenem (Merrem) Confirm Administered Dose 500 mg .ROUTE .STK-MED ONE Stop: 02/14/18 08:44 Last Admin: 02/14/18 14:30 Dose: 500 mg Meropenem (Merrem) Confirm Administered Dose 500 mg .ROUTE .STK-MED ONE Stop: 02/16/18 06:45 Last Admin: 02/16/18 07:49 Dose: 500 mg Naloxone HCl (Narcan) 0.1 mg IVPUSH Q5M PRN PRN Reason: RESP RATE LESS THAN 6/MINUTE Last Admin: 02/15/18 15:23 Dose: 0.1 mg Neostigmine Methylsulfate (Neostigmine) Confirm Administered Dose 5 mg .ROUTE .K-MED ONE Stop: 02/14/18 09:36 Ondansetron HCl (Zofran) Confirm Administered Dose 4 mg .ROUTE .STK-MED ONE Stop: 02/14/18 09:36 Pantoprazole Sodium (Protonix Iv) 40 mg IV Q24H [facility] Last Admin: 02/16/18 17:44 Dose: 40 mg Trans-Derm Scop (Patch Removal) 0 each TOP ONETIME ONE Stop: 02/16/18 14:01 Last Admin: 02/16/18 15:05 Dose: Not Given Prednisone (Prednisone) 2.5 mg PO DAILY [facility] Last Admin: 02/18/18 09:45 Dose: 2.5 mg Prednisone (Prednisone) 10 mg PO DAILY [facility] Last Admin: 02/18/18 11:38 Dose: 10 mg Propofol (Diprivan 20 Ml) Confirm Administered Dose 200 mg .ROUTE .STK-MED ONE Stop: 02/14/18 09:36 Propofol (Diprivan 20 Ml) Confirm Administered Dose 200 mg .ROUTE .STK-MED ONE Stop: 02/16/18 07:10 Rocuronium [place] (Zemuron) Confirm Administered Dose 50 mg .ROUTE .STK-MED ONE Stop: 02/14/18 09:36 Scopolamine (Transderm-Scop) 1.5 mg TOP ONETIME ONE Stop: 02/14/18 08:16 Last Admin: 02/14/18 08:32 Dose: 1.5 mg Senna (Senna) 8.6 mg PO BEDTIME [facility] Last Admin: 02/15/18 21:24 Dose: 8.6 mg Succinylcholine Chloride (Quelicin) Confirm Administered Dose 200 mg .ROUTE .STK -MED ONE Stop: 02/14/18 09:36 Theophylline (Pablito-24) 400 mg PO DAILY [facility] Last Admin: 02/19/18 09:31 Dose: 400 mg Tramadol HCl (Ultram) 50 mg PO Q6H PRN PRN Reason: PAIN Last Admin: 02/17/18 04:00 Dose: 50 mg - Exam Quality Assessment: Supplemental Oxygen, Urine Catheter, DVT Prophylaxis General: Alert, Oriented, Cooperative, Mild Distress Lungs: Clear to Auscultation, Decreased Breath Sounds Cardiovascular: Regular Rate, Regular Rhythm, No Murmurs GI/Abdominal Exam: Soft, Non-Tender, No Organomegaly, No Distention Extremities: Non-Tender, Pedal Edema Skin: Warm, Dry, Intact Consult PN Assessment/Plan Procedures: Procedures AGENT NOS ASSAY W/OPTIC (01/19/18) AIRWAY INHALATION TREATMENT (01/19/18) ASSAY OF AMYLASE (01/02/18) ASSAY OF LIPASE (01/19/18) ASSAY OF MAGNESIUM (01/19/18) ASSAY OF PHOSPHORUS (01/19/18) ASSAY OF SERUM POTASSIUM (01/19/18) ASSAY THYROID STIM HORMONE (01/19/18) C DIFF AMPLIFIED PROBE (01/19/18) C-REACTIVE PROTEIN (01/19/18) CARDIOVASCULAR STRESS TEST (04/12/16) CHEST WALL MANIPULATION (12/19/17) CHEST WALL MANIPULATION (12/19/17) COMP SCREEN MAMMOGRAM ADD-ON (04/05/15) COMPLETE CBC AUTOMATED (01/19/18) COMPLETE CBC W/AUTO DIFF WBC (01/19/18) COMPREHEN METABOLIC PANEL (01/19/18) CT ABD & PELV W/CONTRAST (01/19/18) CT ABD & PELVIS W/O CONTRAST (01/02/18) CULTURE AEROBIC IDENTIFY (12/19/17) CULTURE OTHR SPECIMN AEROBIC (12/19/17) CULTURE SCREEN ONLY (10/09/17) EGD BIOPSY SINGLE/MULTIPLE (10/09/17) EMERGENCY DEPT VISIT (01/19/18) EMERGENCY DEPT VISIT (01/19/18) HT MUSCLE IMAGE SPECT MULT (04/12/16) HYDRATE IV INFUSION ADD-ON (01/19/18) LEUKOCYTE ASSESSMENT FECAL (01/02/18) MANUAL THERAPY 1/> REGIONS (12/17/17) METABOLIC PANEL TOTAL CA (01/19/18) NEUROMUSCULAR REEDUCATION (12/17/17) OVA AND PARASITES SMEARS (01/19/18) PROTHROMBIN TIME (01/19/18) PT EVAL MOD COMPLEX 30 MIN (08/13/17) ROUTINE VENIPUNCTURE (01/19/18) SMEAR COMPLEX STAIN (01/19/18) SMEAR GRAM STAIN (12/19/17) STOOL CULTR AEROBIC BACT EA (01/19/18) THER/PROPH/DIAG INJ IV PUSH (01/19/18) THERAPEUTIC EXERCISES (12/17/17) TISSUE EXAM BY PATHOLOGIST (10/09/17) TX/PRO/DX INJ SAME DRUG CARD FOLDER (01/02/18) ULTRASOUND THERAPY (12/17/17) X-RAY EXAM ABDOMEN 2 VIEWS (01/02/18) X-RAY EXAM OF SHOULDER (07/26/17) Problem List Initiated/Reviewed/Updated: Yes My Orders Last 24 Hours: My Active Orders 02/21/18 09:30 Dextrose 5%-Lactated Ringers 1,000 ml IV ASDIRECTED 02/21/18 10:00 Furosemide [Lasix] 20 mg IVPUSH NOW ONE Plan: ASSESSMENT AND RECOMMENDATIONS STATUS POST EXPLORATORY LAPAROTOMY-please see operative note for details concerning surgical procedure. No stool output yet over the past 24 hours, persistent ileus, has started to pass a small amount of gas. -Postoperative management per Dr. Pate HYPOXIC RESPIRATORY FAILURE-multifactorial, related to underlying COPD, and hypoventilation secondary to pain related to abdominal incision, as well as sedating effect of pain medications. Good improvement in respiratory status over the past 48 hours with decrease in respiratory rate and increase in saturations. -Continue nebulizer therapy and supplemental oxygen as needed ACUTE KIDNEY INJURY-secondary to intravascular volume depletion and hypotension. She is up on total body fluids, but continues to have some third spacing resulting in the intravascular volume depletion. Renal function modestly improved with better urine output over the past 72 hours. Creatinine improved from yesterday with improvement in GFR. -Decrease IV fluids to 50 mL per hour -Furosemide 20 mg IV now -Keep mean arterial pressure greater than 70 -Recheck kidney function in a.m.
[2018-02-21] MEDS: Potassium Phosphates 22.5 MMOLE in Sodium Chloride 0.9% 250 ML IV SCH ×2 (09:50→12:55)
[2018-02-21] MEDS ORDERED: Furosemide 20 MG/2 ML VIAL IVPUSH ONE (10:00)
--- NOTE | 2018-02-21 10:14 | CR ---
Abdomen 2V AP Flat Upright CLINICAL HISTORY: Postop ileus FINDINGS: NG tube has been advanced slightly. The there is gaseous distention throughout the small skip wel in a nonspecific pattern. The it is similar to prior study. No free air is identified. IMPRESSION: Persistent small bowel distention most likely postop ileus. NG tube has been advanced slightly. Otherwise no significant change from prior study
[2018-02-21] MEDS: Sennosides 8.6 MG Tab PO SCH (20:54)
[2018-02-22] MEDS ORDERED: Melatonin 3 MG Tab PO PRN (00:12)
[2018-02-22] MEDS: Ondansetron 4 MG/2 ML SDV IVPUSH PRN (00:43)
[2018-02-22] MEDS: hydrOXYzine HCl 100 MG/2 ML SDV IM PRN (01:27)
[2018-02-22] MEDS: Metoclopramide 10 MG/2 ML SDV IVPUSH SCH (01:34)
[2018-02-22] MEDS: Acetaminophen 325 MG Tab PO SCH ×2 (01:34→08:00)
[2018-02-22] MEDS: methylPREDNISolone Sodium Succinate 40 MG/1 ML SDV IVPUSH SCH (01:34)
[2018-02-22] MEDS ORDERED: Meropenem 500 MG in Sodium Chloride 0.9% 50 ML IV ONE (04:19)
[2018-02-22] MEDS: Erythromycin Ethylsuccinate Susp 400 MG/5 ML 100 ML Bottle NGTUBE SCH (04:26)
[2018-02-22] MEDS ORDERED: Dexamethasone 4 MG/ML SDV ONE (04:43)
[2018-02-22] MEDS ORDERED: Propofol 200 MG/20 ML SDV ONE (04:43)
[2018-02-22] MEDS ORDERED: Succinylcholine 200 MG/10 ML MDV ONE (04:43)
[2018-02-22] MEDS ORDERED: Neostigmine Methylsulfate 1 MG/ML 5 ML Syringe ONE (04:43)
[2018-02-22] MEDS ORDERED: Glycopyrrolate 0.2 MG/ML 5 ML MDV ONE (04:43)
[2018-02-22] MEDS ORDERED: fentaNYL 250 MCG/5 ML SDV ONE (04:43)
[2018-02-22] MEDS ORDERED: Ondansetron 4 MG/2 ML SDV ONE (04:43)
[2018-02-22] MEDS ORDERED: Rocuronium 50 MG/5 ML Vial ONE (04:43)
[2018-02-22] MEDS ORDERED: Meropenem 500 MG SDV ONE ×5 (05:06→06:56)
[2018-02-22] MEDS ORDERED: Lactated Ringers 1,000 ML ONE ×2 (05:18→07:11)
[2018-02-22] MEDS ORDERED: ePHEDrine 50 MG/ML SDV ONE (05:32)
[2018-02-22] MEDS ORDERED: Phenylephrine 1% 10 MG/ML SDV ONE (05:39)
[2018-02-22] MEDS ORDERED: fentaNYL 12 MCG/HR Transdermal Patch ONE (05:41)
[2018-02-22] MEDS ORDERED: Sodium Chloride 0.9% 250 ML ONE (06:13)
[2018-02-22] MEDS ORDERED: Norepinephrine 4 MG in Dextrose 5% in Water 246 ML IV SCH ×4 (07:00→12:30)
[2018-02-22] MEDS ORDERED: Meropenem 500 MG SDV IRR ONE (07:30)
[2018-02-22] MEDS ORDERED: Heparin Sodium 5,000 Units/ML Vial ONE ×2 (07:33→09:10)
[2018-02-22] MEDS: Levothyroxine 75 MCG Tab PO SCH (08:31)
[2018-02-22] MEDS: Isosorbide Mononitrate 30 MG Tab.ER PO SCH (09:00)
[2018-02-22] MEDS: Bisacodyl 5 MG Tab PO SCH (09:00)
[2018-02-22] MEDS: Bisacodyl 10 MG Supp RECTAL SCH (09:00)
[2018-02-22] MEDS: Furosemide 20 MG/2 ML VIAL IV ONE (09:00)
[2018-02-22] MEDS: Aspirin 81 MG Tab.EC PO SCH (09:00)
[2018-02-22] MEDS: Albuterol/Ipratropium 3.0-0.5 MG/3 ML Neb Soln INH SCH ×4 (09:18→20:38)
[2018-02-22] MEDS: Budesonide 0.5 MG/2 ML Neb Susp INH SCH ×2 (09:18→20:38)
--- NOTE | 2018-02-22 09:42 | PCM.CONSN ---
- General Info Date of Service: 02/22/18 Subjective Update: Fantasma unfortunately developed severe abdominal pain late last night and early this morning, CT scan of the abdomen showed free air as well as fluid collections consistent with abscess. She was taken to the operating room and underwent a subtotal colectomy with ileostomy formation. She shown evidence of sepsis with hypotension and tachycardia. Currently on norepinephrine as well as IV fluid resuscitation. She has remained ventilated and currently is stable on current ventilator settings with adequate oxygenation on an FiO2 of 60%. She is currently intubated and sedated, unable to provide significant information concerning symptoms or review of systems. - Patient Data Vitals - Most Recent: Last Vital Signs Temp 98.6 F 02/22/18 09:30 Pulse 123 H 02/22/18 09:30 Resp 16 02/22/18 09:30 BP 120/60 02/22/18 09:30 Pulse Ox 98 02/22/18 09:30 Weight - Most Recent: 107 lb 4.995 oz I&O - Last 24 Hours: Intake & Output 02/21/18 02/22/18 02/22/18 22:59 06:59 14:59 Intake Total 470 537 Output Total 590 370 25 Balance -120 167 -25 Lab Results Last 24 Hours: Laboratory Results - last 24 hr 02/22/18 02/22/18 Range/Units 04:34 04:34 WBC 9.8 (4.5-11.0) K/uL RBC 4.02 (3.30-5.50) M/uL Hgb 12.4 (12.0-15.0) g/dL Hct 38.3 (36.0-48.0) % MCV 95 (80-98) fL MCH 31 (27-31) pg MCHC 32 (32-36) % Plt Count 54 L (150-400) K/uL Sodium 145 (140-148) mmol/L Potassium 3.8 (3.6-5.2) mmol/L Chloride 109 H (100-108) mmol/L Carbon Dioxide 27 (21-32) mmol/L Anion Gap 12.8 (5.0-14.0) mmol/L BUN 28 H (7-18) mg/dL Creatinine 1.0 (0.6-1.0) mg/dL Est Cr Clr Drug Dosing 31.15 mL/min Estimated GFR (MDRD) 53 L (>60) Glucose 164 H (74-106) mg/dL Calcium 7.8 L (8.5-10.1) mg/dL Phosphorus 4.0 (2.5-4.9) mg/dL Magnesium 1.8 (1.8-2.4) mg/dL Total Bilirubin 1.2 H D (0.2-1.0) mg/dL AST 93 H (15-37) U/L ALT 37 (12-78) U/L Alkaline Phosphatase 131 H (46-116) U/L NT-Pro-B Natriuret Pep 9720 H (5-450) pg/mL Total Protein 4.6 L (6.4-8.2) g/dL Albumin 1.3 L (3.4-5.0) g/dL Globulin 3.3 (2.3-3.5) g/dL Albumin/Globulin Ratio 0.4 L (1.2-2.2) Kash Results Last 24 Hours: Microbiology 02/22/18 05:54 Gram Stain - Final Abdomen - Abscess Med Orders - Current: Current Medications Albuterol/Ipratropium (Duoneb 3.0-0.5 Mg/3 Ml) 3 ml INH ASDIRECTED PRN PRN Reason: RESP Last Admin: 02/17/18 18:57 Dose: 3 ml Albuterol/Ipratropium (Duoneb 3.0-0.5 Mg/3 Ml) 3 ml INH QIDRT ANGELA Last Admin: 02/22/18 09:18 Dose: Not Given Budesonide (Pulmicort) 0.5 mg INH BIDRT ANGELA Last Admin: 02/22/18 09:18 Dose: Not Given Fentanyl (Duragesic) 12 mcg TRDERM Q72H ANGELA Hydromorphone HCl (Dilaudid Chiropractic Doctor 15 Mg In Ns 30 Ml) 15 mg IV ASDIRECTED ANGELA; Protocol Norepinephrine Bitartrate 4 mg (/ Dextrose/Water) 250 mls @ 7.5 mls/hr IV TITRATE ANGELA; Protocol Dextrose/Lactated Ringer's (Dextrose 5%-Lactated Ringers) 1,000 mls @ 100 mls/ hr IV ASDIRECTED ANGELA Propofol (Diprivan 100 Ml) 100 mls @ 1.46 mls/hr IV TITRATE ANGELA; Protocol Lactated Ringer's (Ringers, Lactated) 1,000 mls @ 125 mls/hr IV ASDIRECTED [facility] Naloxone HCl (Narcan) 0.1 mg IV ASDIRECTED PRN PRN Reason: decreased respiratory rate Fentanyl Patch Check 1 each TOP BID [facility] Pantoprazole Sodium (Protonix) 40 mg PO ACBREAKFAST [facility] Last Admin: 02/21/18 07:46 Dose: 40 mg Discontinued Medications Acetaminophen (Tylenol Extra Strength) 1,000 mg PO ONETIME ONE Stop: 02/14/18 08:16 Last Admin: 02/14/18 08:31 Dose: 1,000 mg Acetaminophen (Tylenol) 650 mg PO Q6H [facility] Last Admin: 02/22/18 01:34 Dose: 650 mg Albuterol/Ipratropium (Duoneb 3.0-0.5 Mg/3 Ml) 3 ml NEB ONETIME ONE Stop: 02/14/18 09:46 Last Admin: 02/14/18 12:32 Dose: 3 ml Allopurinol (Zyloprim) 150 mg PO DAILY [facility] Last Admin: 02/21/18 08:06 Dose: 150 mg Alvimopan (Entereg) 12 mg PO ONETIME ONE Stop: 02/14/18 08:16 Last Admin: 02/14/18 08:31 Dose: 12 mg Alvimopan (Entereg) 12 mg PO BID [facility] Stop: 02/21/18 09:01 Last Admin: 02/21/18 08:05 Dose: 12 mg Aspirin (Halfprin) 81 mg PO DAILY [facility] Last Admin: 02/21/18 08:06 Dose: 81 mg Aztreonam (Azactam) Confirm Administered Dose 1 gm .ROUTE .STK-MED ONE Stop: 02/22/18 06:21 Aztreonam (Azactam) Confirm Administered Dose 1 gm .ROUTE .STK-MED ONE Stop: 02/22/18 06:21 Bisacodyl (Dulcolax) 10 mg PO BID [facility] Last Admin: 02/21/18 20:54 Dose: 10 mg Bisacodyl (Dulcolax) 10 mg RECTAL TID [facility] Last Admin: 02/21/18 21:01 Dose: 10 mg Bisacodyl (Dulcolax) 10 mg RECTAL ONETIME ONE Stop: 02/21/18 10:01 Last Admin: 02/21/18 09:37 Dose: Not Given Bupivacaine HCl (Marcaine 0.5%) Confirm Administered Dose 50 ml .ROUTE .STK-MED ONE Stop: 02/16/18 06:45 Last Admin: 02/16/18 07:44 Dose: 10 ml Carvedilol (Coreg) 3.125 mg PO BIDMEALS [facility] Last Admin: 02/21/18 17:39 Dose: 3.125 mg Cefoxitin Sodium (Mefoxin) Confirm Administered Dose 2 gm .ROUTE .STK-MED ONE Stop: 02/14/18 08:44 Ropivacaine 25 ml/Dexamethasone 8 mg/Epinephrine HCl 0.4 mg/ Sodium Chloride 52.6 ml 0 ml NERVRT ASDIRECTED [facility] Neomycin/Polymyxin 1 ml/ (Sodium Chloride 500 ml) 0 ml IRR ONETIME ONE Stop: 02/14/18 08:16 Last Admin: 02/14/18 08:35 Dose: 750 irr Ropivacaine 25 ml/Dexamethasone 8 mg/Epinephrine HCl 0.4 mg/ Sodium Chloride 52.6 ml 0 ml NERVRT ASDIRECTED [facility] Last Admin: 02/16/18 07:59 Dose: 80 syringe Dexamethasone (Dexamethasone) Confirm Administered Dose 4 mg .ROUTE .STK-MED ONE Stop: 02/14/18 09:36 Dexamethasone (Dexamethasone) Confirm Administered Dose 4 mg .ROUTE .STK-MED ONE Stop: 02/22/18 04:44 Diphenhydramine HCl (Benadryl) 25 mg IVPUSH Q6H PRN PRN Reason: Itching Last Admin: 02/14/18 15:58 Dose: 25 mg Ephedrine Sulfate (Ephedrine Sulfate) Confirm Administered Dose 50 mg .ROUTE .STK-MED ONE Stop: 02/14/18 13:50 Ephedrine Sulfate (Ephedrine Sulfate) Confirm Administered Dose 50 mg .ROUTE .STK-MED ONE Stop: 02/22/18 05:33 Erythromycin Ethylsuccinate (Eryped 400) 250 mg NGTUBE Q6H [facility] Last Admin: 02/22/18 04:26 Dose: Not Given Fentanyl (Sublimaze) Confirm Administered Dose 250 mcg .ROUTE .STK-MED ONE Stop: 02/14/18 09:36 Fentanyl (Sublimaze) Confirm Administered Dose 100 mcg .ROUTE .STK-MED ONE Stop: 02/16/18 07:10 Fentanyl (Sublimaze) Confirm Administered Dose 250 mcg .ROUTE .STK-MED ONE Stop: 02/22/18 04:44 Fentanyl (Duragesic) Confirm Administered Dose 12 mcg .ROUTE .STK-MED ONE Stop: 02/22/18 05:42 Last Admin: 02/22/18 05:51 Dose: 12 mcg Furosemide (Lasix) 40 mg PO DAILY ANGELA Last Admin: 02/18/18 09:45 Dose: 40 mg Furosemide (Lasix) 20 mg IVPUSH ONETIME STA Stop: 02/17/18 20:03 Last Admin: 02/17/18 20:30 Dose: 20 mg Furosemide (Lasix) 40 mg IVPUSH NOW ONE Stop: 02/17/18 21:33 Last Admin: 02/17/18 21:53 Dose: 40 mg Furosemide (Lasix) 20 mg IVPUSH NOW ONE Stop: 02/21/18 10:01 Last Admin: 02/21/18 09:50 Dose: 20 mg Furosemide (Lasix) 20 mg IV NOW ONE Stop: 02/22/18 09:01 Glucagon (Glucagen) Confirm Administered Dose 1 mg .ROUTE .STK-MED ONE Stop: 02/14/18 14:26 Glycopyrrolate (Robinul) Confirm Administered Dose 1 mg .ROUTE .STK-MED ONE Stop: 02/14/18 09:36 Glycopyrrolate (Robinul) Confirm Administered Dose 1 mg .ROUTE .STK-MED ONE Stop: 02/22/18 04:44 Heparin Sodium (Porcine) (Heparin Lock Flush 100 Units/Ml) Confirm Administered Dose 500 units .ROUTE .STK-MED ONE Stop: 02/22/18 06:05 Heparin Sodium (Porcine) (Heparin Sodium) Confirm Administered Dose 5,000 units .ROUTE .STK-MED ONE Stop: 02/22/18 07:34 Heparin Sodium (Porcine) (Heparin Sodium) Confirm Administered Dose 5,000 units .ROUTE .STK-MED ONE Stop: 02/22/18 09:11 Hydromorphone HCl (Dilaudid Chiropractic Doctor 15 Mg In Ns 30 Ml) 0 mg IV ASDIRECTED PRN; Protocol PRN 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 Last Admin: 02/19/18 06:32 Dose: 15 mg Hydromorphone HCl (Dilaudid Chiropractic Doctor 15 Mg In Ns 30 Ml) Confirm Administered Dose 15 mg IV .STK-MED ONE Stop: 02/17/18 10:18 Last Admin: 02/17/18 10:31 Dose: Not Given Hydroxyzine HCl (Vistaril) 0 mg IM Q4H PRN PRN Reason: PAIN Last Admin: 02/22/18 01:27 Dose: 75 mg Hydroxyzine HCl (Vistaril) 75 mg IM ONETIME ONE Stop: 02/17/18 11:01 Last Admin: 02/17/18 11:00 Dose: 75 mg Dextrose/Lactated Ringer's (Dextrose 5%-Lactated Ringers) 1,000 mls @ 100 mls/ hr IV ASDIRECTED ANGELA Last Admin: 02/14/18 12:44 Dose: 100 mls/hr Meropenem 500 mg/ Sodium (Chloride) 50 mls @ 100 mls/hr IV ONETIME ONE Stop: 02/14/18 10:14 Last Admin: 02/14/18 12:59 Dose: 100 mls/hr Fentanyl 2,500 mcg/ Sodium (Chloride) 250 mls @ 0 mls/hr EPIDUR TITRATE ANGELA; Protocol Fentanyl Citrate 2,500 mcg/ (Sodium Chloride) 250 mls @ 0 mls/hr EPIDUR TITRATE ANGELA; Protocol Last Admin: 02/15/18 15:05 Dose: 8 mls/hr, 8 mls/hr Lactated Ringer's (Ringers, Lactated) Confirm Administered Dose 1,000 mls @ as directed .ROUTE .STK-MED ONE Stop: 02/14/18 14:38 Dextrose/Lactated Ringer's (Dextrose 5%-Lactated Ringers) 1,000 mls @ 100 mls/ hr IV ASDIRECTED ANGELA Dextrose/Lactated Ringer's (Dextrose 5%-Lactated Ringers) 1,000 mls @ 150 mls/ hr IV ASDIRECTED ANGELA Last Admin: 02/15/18 02:48 Dose: 150 mls/hr Cefoxitin Sodium 2 gm/ Sodium (Chloride) 50 mls @ 100 mls/hr IV Q6H ANGELA Last Admin: 02/17/18 08:48 Dose: 100 mls/hr Potassium Chloride/Dextrose/Sod Cl (D5 1/2 Ns W/ 20 Meq/L Kcl) 1,000 mls @ 80 mls/hr IV ASDIRECTED ANGELA Last Admin: 02/15/18 09:37 Dose: 80 mls/hr Naloxone HCl 0.4 mg/ Potassium (Chloride/Dextrose/Sod Cl) 1,001 mls @ 80.08 mls /hr IV ASDIRECTED [facility] Last Admin: 02/16/18 04:38 Dose: 80.08 mls/hr Fentanyl Citrate 2,500 mcg/ (Sodium Chloride) 250 mls @ 4 mls/hr EPIDUR TITRATE [facility]; Protocol Last Admin: 02/15/18 22:56 Dose: 4 ml/hr, 4 mls/hr Potassium Chloride/Dextrose/Sod Cl (D5 1/2 Ns W/ 20 Meq/L Kcl) 1,000 mls @ 40 mls/hr IV ASDIRECTED [facility] Last Admin: 02/17/18 10:12 Dose: 100 mls/hr Potassium Phosphate 30 mmole/ (Sodium Chloride) 160 mls @ 54 mls/hr IV Q3H [facility] Stop: 02/17/18 16:58 Last Admin: 02/17/18 16:49 Dose: 54 mls/hr Dextrose/Lactated Ringer's (Dextrose 5%-Lactated Ringers) 1,000 mls @ 100 mls/ hr IV ASDIRECTED [facility] Last Admin: 02/19/18 08:52 Dose: 100 mls/hr Lactated Ringer's (Ringers, Lactated) 1,000 mls @ 250 mls/hr IV ASDIRECTED [facility] Stop: 02/18/18 14:31 Last Admin: 02/18/18 11:28 Dose: 250 mls/hr Acetaminophen 1,000 mg/ Premix 100 mls @ 400 mls/hr IV NOW ONE Stop: 02/18/18 11:16 Last Admin: 02/18/18 11:33 Dose: Not Given Dextrose/Lactated Ringer's (Dextrose 5%-Lactated Ringers) 1,000 mls @ 75 mls/ hr IV ASDIRECTED [facility] Last Admin: 02/20/18 23:39 Dose: 75 mls/hr Potassium Phosphate 22.5 mmole (/ Sodium Chloride) 257.5 mls @ 86 mls/hr IV Q3H [facility] Stop: 02/21/18 15:59 Last Admin: 02/21/18 12:55 Dose: 86 mls/hr Dextrose/Lactated Ringer's (Dextrose 5%-Lactated Ringers) 1,000 mls @ 50 mls/ hr IV ASDIRECTED [facility] Last Admin: 02/21/18 16:35 Dose: 50 mls/hr Meropenem 500 mg/ Sodium (Chloride) 50 mls @ 100 mls/hr IV ONETIME ONE Stop: 02/22/18 04:48 Last Admin: 02/22/18 05:30 Dose: 100 mls/hr Lactated Ringer's (Ringers, Lactated) Confirm Administered Dose 1,000 mls @ as directed .ROUTE .[facility] ONE Stop: 02/22/18 05:19 Sodium Chloride (Normal Saline) Confirm Administered Dose 250 mls @ as directed .ROUTE .[facility] ONE Stop: 02/22/18 06:14 Lactated Ringer's (Ringers, Lactated) Confirm Administered Dose 1,000 mls @ as directed .ROUTE .[facility] ONE Stop: 02/22/18 07:12 Ibuprofen (Motrin) 400 mg PO Q6H [facility] Last Admin: 02/17/18 08:22 Dose: 400 mg Isosorbide Mononitrate (Imdur) 30 mg PO DAILY [facility] Last Admin: 02/21/18 08:06 Dose: 30 mg Ketamine HCl (Ketalar) 25 mg IV ASDIRECTED [facility] Levothyroxine Sodium (Levothyroxine) 75 mcg PO ACBREAKFAST [facility] Last Admin: 02/21/18 07:46 Dose: 75 mcg Lidocaine HCl (Xylocaine-Mpf 1%) Confirm Administered Dose 5 ml .ROUTE .[facility] ONE Stop: 02/14/18 12:41 Last Admin: 02/14/18 16:48 Dose: Not Given Lidocaine HCl (Xylocaine-Mpf 1%) 0.1 ml INJECT ONETIME ONE Stop: 02/14/18 12:43 Last Admin: 02/14/18 16:48 Dose: Not Given Lidocaine/Epinephrine (Xylocaine 1% With Epinephrine 1:100,000) Confirm Administered Dose 50 ml .ROUTE .[facility] ONE Stop: 02/16/18 06:45 Last Admin: 02/16/18 07:44 Dose: 10 ml Magnesium Hydroxide (Milk Of Magnesia) 30 ml PO BID [facility] Stop: 02/16/18 21:01 Last Admin: 02/16/18 20:18 Dose: 30 ml Magnesium Hydroxide (Milk Of Magnesia) 30 ml PO ASDIRECTED PRN PRN Reason: * Melatonin (Melatonin) 9 mg PO BEDTIME PRN PRN Reason: Insomnia Last Admin: 02/22/18 00:39 Dose: 9 mg Meperidine HCl (Demerol) 75 mg IM ONETIME ONE Stop: 02/17/18 11:01 Last Admin: 02/17/18 11:00 Dose: 75 mg Meropenem (Merrem) Confirm Administered Dose 500 mg .ROUTE .STK-MED ONE Stop: 02/14/18 08:44 Last Admin: 02/14/18 14:30 Dose: 500 mg Meropenem (Merrem) Confirm Administered Dose 500 mg .ROUTE .STK-MED ONE Stop: 02/16/18 06:45 Last Admin: 02/16/18 07:49 Dose: 500 mg Meropenem (Merrem) Confirm Administered Dose 500 mg .ROUTE .STK-MED ONE Stop: 02/22/18 05:07 Meropenem (Merrem) Confirm Administered Dose 1,500 mg .ROUTE .STK-MED ONE Stop: 02/22/18 05:51 Meropenem (Merrem) Confirm Administered Dose 500 mg .ROUTE .STK-MED ONE Stop: 02/22/18 06:05 Meropenem (Merrem) Confirm Administered Dose 1,000 mg .ROUTE .STK-MED ONE Stop: 02/22/18 06:40 Meropenem (Merrem) 1,000 mg IRR ONETIME ONE Stop: 02/22/18 07:31 Methylprednisolone Sodium Succinate (Solu-Medrol) 40 mg IVPUSH Q12H [facility] Last Admin: 02/22/18 01:34 Dose: 40 mg Metoclopramide HCl (Reglan) 10 mg IVPUSH Q8H [facility] Last Admin: 02/22/18 01:34 Dose: 10 mg Naloxone HCl (Narcan) 0.1 mg IVPUSH Q5M PRN PRN Reason: RESP RATE LESS THAN 6/MINUTE Last Admin: 02/15/18 15:23 Dose: 0.1 mg Neostigmine Methylsulfate (Neostigmine) Confirm Administered Dose 5 mg .ROUTE .STK-MED ONE Stop: 02/14/18 09:36 Neostigmine Methylsulfate (Neostigmine) Confirm Administered Dose 5 mg .ROUTE .STK-MED ONE Stop: 02/22/18 04:44 Nitroglycerin (Nitrostat) 0.4 mg SL ASDIRECTED PRN PRN Reason: CHEST PAIN Ondansetron HCl (Zofran) Confirm Administered Dose 4 mg .ROUTE .STK-MED ONE Stop: 02/14/18 09:36 Ondansetron HCl (Zofran) 4 mg IVPUSH Q4H PRN PRN Reason: NAUSEA Last Admin: 02/22/18 00:43 Dose: 4 mg Ondansetron HCl (Zofran) Confirm Administered Dose 4 mg .ROUTE .STK-MED ONE Stop: 02/22/18 04:44 Pantoprazole Sodium (Protonix Iv) 40 mg IV Q24H [facility] Last Admin: 02/16/18 17:44 Dose: 40 mg Trans-Derm Scop (Patch Removal) 0 each TOP ONETIME ONE Stop: 02/16/18 14:01 Last Admin: 02/16/18 15:05 Dose: Not Given Phenylephrine HCl (Manuel-Synephrine) Confirm Administered Dose 10 mg .ROUTE .STK- MED ONE Stop: 02/22/18 05:40 Prednisone (Prednisone) 2.5 mg PO DAILY [facility] Last Admin: 02/18/18 09:45 Dose: 2.5 mg Prednisone (Prednisone) 10 mg PO DAILY [facility] Last Admin: 02/18/18 11:38 Dose: 10 mg Propofol (Diprivan 20 Ml) Confirm Administered Dose 200 mg .ROUTE .STK-MED ONE Stop: 02/14/18 09:36 Propofol (Diprivan 20 Ml) Confirm Administered Dose 200 mg .ROUTE .STK-MED ONE Stop: 02/16/18 07:10 Propofol (Diprivan 20 Ml) Confirm Administered Dose 200 mg .ROUTE .STK-MED ONE Stop: 02/22/18 04:44 Rocuronium Steger (Zemuron) Confirm Administered Dose 50 mg .ROUTE .STK-MED ONE Stop: 02/14/18 09:36 Rocuronium Steger (Zemuron) Confirm Administered Dose 50 mg .ROUTE .STK-MED ONE Stop: 02/22/18 04:44 Scopolamine (Transderm-Scop) 1.5 mg TOP ONETIME ONE Stop: 02/14/18 08:16 Last Admin: 02/14/18 08:32 Dose: 1.5 mg Senna (Senna) 8.6 mg PO BEDTIME [facility] Last Admin: 02/15/18 21:24 Dose: 8.6 mg Senna (Senna) 17.2 mg PO BEDTIME ANGELA Last Admin: 02/21/18 20:54 Dose: 17.2 mg Succinylcholine Chloride (Quelicin) Confirm Administered Dose 200 mg .ROUTE .STK -MED ONE Stop: 02/14/18 09:36 Succinylcholine Chloride (Quelicin) Confirm Administered Dose 200 mg .ROUTE .STK -MED ONE Stop: 02/22/18 04:44 Theophylline (Pablito-24) 400 mg PO DAILY [facility] Last Admin: 02/19/18 09:31 Dose: 400 mg Tramadol HCl (Ultram) 50 mg PO Q6H PRN PRN Reason: PAIN Last Admin: 02/17/18 04:00 Dose: 50 mg - Exam Quality Assessment: Supplemental Oxygen (Ventilator), Central Line/PICC, Urine Catheter General: Sedated Lungs: Clear to Auscultation, Normal Respiratory Effort. No: Rales, Rhonchi, Wheezing Cardiovascular: No Murmurs, Irregular Rhythm, Tachycardia GI/Abdominal Exam: Other (Surgical dressing in place, exam per Dr. Pate). No: Normal Bowel Sounds Extremities: Non-Tender, Pedal Edema Skin: Warm, Dry Consult PN Assessment/Plan Procedures: Procedures AGENT NOS ASSAY W/OPTIC (01/19/18) AIRWAY INHALATION TREATMENT (01/19/18) ASSAY OF AMYLASE (01/02/18) ASSAY OF LIPASE (01/19/18) ASSAY OF MAGNESIUM (01/19/18) ASSAY OF PHOSPHORUS (01/19/18) ASSAY OF SERUM POTASSIUM (01/19/18) ASSAY THYROID STIM HORMONE (01/19/18) C DIFF AMPLIFIED PROBE (01/19/18) C-REACTIVE PROTEIN (01/19/18) CARDIOVASCULAR STRESS TEST (04/12/16) CHEST WALL MANIPULATION (12/19/17) CHEST WALL MANIPULATION (12/19/17) COMP SCREEN MAMMOGRAM ADD-ON (04/05/15) COMPLETE CBC AUTOMATED (01/19/18) COMPLETE CBC W/AUTO DIFF WBC (01/19/18) COMPREHEN METABOLIC PANEL (01/19/18) CT ABD & PELV W/CONTRAST (01/19/18) CT ABD & PELVIS W/O CONTRAST (01/02/18) CULTURE AEROBIC IDENTIFY (12/19/17) CULTURE OTHR SPECIMN AEROBIC (12/19/17) CULTURE SCREEN ONLY (10/09/17) EGD BIOPSY SINGLE/MULTIPLE (10/09/17) EMERGENCY DEPT VISIT (01/19/18) EMERGENCY DEPT VISIT (01/19/18) HT MUSCLE IMAGE SPECT MULT (04/12/16) HYDRATE IV INFUSION ADD-ON (01/19/18) LEUKOCYTE ASSESSMENT FECAL (01/02/18) MANUAL THERAPY 1/> REGIONS (12/17/17) METABOLIC PANEL TOTAL CA (01/19/18) NEUROMUSCULAR REEDUCATION (12/17/17) OVA AND PARASITES SMEARS (01/19/18) PROTHROMBIN TIME (01/19/18) PT EVAL MOD COMPLEX 30 MIN (08/13/17) ROUTINE VENIPUNCTURE (01/19/18) SMEAR COMPLEX STAIN (01/19/18) SMEAR GRAM STAIN (12/19/17) STOOL CULTR AEROBIC BACT EA (01/19/18) THER/PROPH/DIAG INJ IV PUSH (01/19/18) THERAPEUTIC EXERCISES (12/17/17) TISSUE EXAM BY PATHOLOGIST (10/09/17) TX/PRO/DX INJ SAME DRUG STAMPING 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 She is currently ventilated, receiving IV fluids as well as IV norepinephrine to maintain pressures. -Continue current antibiotic therapy with meropenem and Azactam, pending culture results -Cultures from surgery pending -IV fluids as ordered by Dr. Pate -IV norepinephrine to maintain mean arterial pressure of greater than 65 HYPOXIC RESPIRATORY FAILURE-acute on chronic, status post extensive surgical procedure earlier this morning. Has been left on mechanical ventilation, current plan is for repeat surgery again tomorrow. When she stabilizes hemodynamically need to work towards extubation. -Continue nebulizer therapy -Begin spontaneous breathing trials after surgery tomorrow ACUTE KIDNEY INJURY-renal function has improved to baseline over the past several days -Continue closely monitor urine output and renal function
[2018-02-22] MEDS: Dextrose 5%-Lactated Ringers 1,000 ML IV SCH ×2 (09:59→20:07)
[2018-02-22] MEDS ORDERED: Lactated Ringers 1,000 ML IV ONE ×4 (10:00→16:30)
[2018-02-22] MEDS: Aztreonam/Dextrose-Water 1 GM in Premix Bag 1 BAG IV SCH ×2 (10:02→17:46)
[2018-02-22] MEDS: fentaNYL 12 MCG/HR Transdermal Patch TRDERM SCH (10:04)
[2018-02-22] MEDS: FENTANYL PATCH CHECK TOP SCH ×2 (10:05→20:38)
[2018-02-22] MEDS: Pantoprazole 40 MG Tab.CR PO SCH (10:05)
--- NOTE | 2018-02-22 10:54 | CR ---
CHEST: Multiple CLINICAL HISTORY:Intubation COMPARISON:11/07/2018 FINDINGS: The endotracheal tube is been placed in the mid trachea. There is a right jugular catheter . Tip is in the superior vena cava. Patient has small bilateral pleural effusions which have increase d since prior study. There is some left lower lobe airspace disease which may be atelectasis. Consoli dation not excluded There is a surgical drain in the left upper quadrant. Pelvic vascular is normal. IMPRESSION: Endotracheal intubation Right jugular catheter in good position Small to moderate bilateral pleural effusions left greater than right, these have increased since uriel or study. There is likely some left lower lobe atelectasis but consolidation is not excluded. Surgical drain left upper quadrant
[2018-02-22] MEDS ORDERED: Meropenem 500 MG in Sodium Chloride 0.9% 50 ML IV SCH (11:00)
[2018-02-22] MEDS ORDERED: Lactated Ringers 750 ML IV ONE (11:15)
[2018-02-22] MEDS: Pantoprazole 40 MG Vial IV SCH (13:09)
[2018-02-22] MEDS: HYDROmorphone/Normal Saline 15 MG/30 ML PCA IV SCH (15:09)
[2018-02-22] MEDS ORDERED: Vasopressin 100 UNITS in Dextrose 5% in Water 250 ML IV SCH ×4 (15:45)
[2018-02-22] MEDS: Lactated Ringers 1,000 ML IV SCH (20:04)
[2018-02-23] MEDS: Aztreonam/Dextrose-Water 1 GM in Premix Bag 1 BAG IV SCH ×3 (01:39→18:01)
[2018-02-23] MEDS: Lactated Ringers 1,000 ML IV SCH ×3 (03:39→19:11)
[2018-02-23] MEDS: Dextrose 5%-Lactated Ringers 1,000 ML IV SCH ×2 (04:52→14:31)
[2018-02-23] MEDS ORDERED: Insulin Detemir 100 Units/ML 3 ML Pen ONE (06:08)
[2018-02-23] MEDS ORDERED: Insulin Aspart 100 Units/ML 3 ML Pen ONE (06:24)
[2018-02-23] MEDS ORDERED: Meropenem 500 MG SDV ONE (06:38)
[2018-02-23] MEDS ORDERED: Rocuronium 50 MG/5 ML Vial ONE (06:58)
[2018-02-23] MEDS ORDERED: Propofol 200 MG/20 ML SDV ONE (06:58)
[2018-02-23] MEDS ORDERED: Glucagon,Human Recombinant 1 MG Vial IM PRN (07:13)
[2018-02-23] MEDS ORDERED: 50% Dextrose in Water 50 ML Syringe IVPUSH PRN (07:13)
[2018-02-23] MEDS ORDERED: Glucose Gel 15 GM in 37.5 GM Tube PO PRN (07:13)
[2018-02-23] MEDS ORDERED: Insulin Aspart 100 Units/ML 3 ML Pen SUBCUT PRN (07:14)
[2018-02-23] MEDS ORDERED: fentaNYL 100 MCG/2 ML SDV ONE (07:50)
--- NOTE | 2018-02-23 09:11 | PCM.CONSN ---
- General Info Date of Service: 02/23/18 Subjective Update: Fantasma has shown modest improvement since yesterday, blood pressure has been more stable, continues to require use of both IV norepinephrine and vasopressin. Lactic acid level remains elevated but has improved since yesterday, urine output has been very low, despite improvement in blood pressure. She has remained stable with current ventilator settings with adequate oxygenation. She was taken back to the operating room today for reexploration and washing of the abdominal contents. She is still very sedated from surgery and unable to provide specific information concerning symptoms or review of systems. - Patient Data Vitals - Most Recent: Last Vital Signs Temp 99.5 F 02/23/18 07:00 Pulse 112 H 02/23/18 07:00 Resp 18 02/23/18 07:00 BP 141/59 H 02/23/18 07:00 Pulse Ox 97 02/23/18 07:00 Weight - Most Recent: 102 lb I&O - Last 24 Hours: Intake & Output 02/22/18 02/23/18 02/23/18 22:59 06:59 14:59 Intake Total 5398 2978 Output Total 409 422 Balance 4989 2556 Lab Results Last 24 Hours: Laboratory Results - last 24 hr 02/22/18 02/22/18 02/22/18 Range/Units 09:44 09:44 17:00 WBC (4.5-11.0) K/uL RBC (3.30-5.50) M/uL Hgb (12.0-15.0) g/dL Hct (36.0-48.0) % MCV (80-98) fL MCH (27-31) pg MCHC (32-36) % Plt Count (150-400) K/uL Add Manual Diff Neutrophils % (Manual) (36-66) % Band Neutrophils % (5-11) % Lymphocytes % (Manual) (24-44) % Monocytes % (Manual) (2-6) % Puncture Site A-line A-line ABG pH 7.359 7.430 (7.350-7.450) ABG pCO2 35.6 24.1 L (35.0-42.0) mmHg ABG pO2 108.0 H 93.4 (75.0-100.0) mmHg ABG HCO3 19.5 L 15.7 L (22.0-26.0) mmol/L ABG Total CO2 17.8 L 14.8 L (21.0-25.0) mmol/L ABG O2 Saturation 97.0 96.9 (95.0-98.0) % ABG O2 Content 16.5 11.3 L (15.0-23.0) %vol ABG Base Excess -4.8 -7.3 mm/L ABG Hemoglobin 12.1 8.3 L (12.0-16.0) g/dL ABG Oxyhemoglobin 95.6 95.5 % ABG Carboxyhemoglobin 0.7 0.8 (0.0-1.6) % ABG Methemoglobin 0.7 0.6 % Jose Manuel Test A-line A-line O2 Delivery Device Ventilator Ventilator Oxygen Flow Rate L Sodium (140-148) mmol/L Potassium (3.6-5.2) mmol/L Chloride (100-108) mmol/L Carbon Dioxide (21-32) mmol/L Anion Gap (5.0-14.0) mmol/L BUN (7-18) mg/dL Creatinine (0.6-1.0) mg/dL Est Cr Clr Drug Dosing mL/min Estimated GFR (MDRD) (>60) Glucose (74-106) mg/dL Lactic Acid 4.5 H (0.4-2.0) mmol/L Calcium (8.5-10.1) mg/dL Phosphorus (2.5-4.9) mg/dL Magnesium (1.8-2.4) mg/dL Total Bilirubin (0.2-1.0) mg/dL AST (15-37) U/L ALT (12-78) U/L Alkaline Phosphatase (46-116) U/L Total Protein (6.4-8.2) g/dL Albumin (3.4-5.0) g/dL Globulin (2.3-3.5) g/dL Albumin/Globulin Ratio (1.2-2.2) Blood Type Gel Antibody Screen Crossmatch 02/22/18 02/22/18 02/22/18 Range/Units 17:00 17:00 17:00 WBC 15.1 H (4.5-11.0) K/uL RBC 2.71 L (3.30-5.50) M/uL Hgb 8.3 L D (12.0-15.0) g/dL Hct 26.6 L (36.0-48.0) % MCV 98 (80-98) fL MCH 31 (27-31) pg MCHC 31 L (32-36) % Plt Count 47 L (150-400) K/uL Add Manual Diff Yes Neutrophils % (Manual) 73 H (36-66) % Band Neutrophils % 23 H (5-11) % Lymphocytes % (Manual) 3 L (24-44) % Monocytes % (Manual) 1 L (2-6) % Puncture Site ABG pH (7.350-7.450) ABG pCO2 (35.0-42.0) mmHg ABG pO2 (75.0-100.0) mmHg ABG HCO3 (22.0-26.0) mmol/L ABG Total CO2 (21.0-25.0) mmol/L ABG O2 Saturation (95.0-98.0) % ABG O2 Content (15.0-23.0) %vol ABG Base Excess mm/L ABG Hemoglobin (12.0-16.0) g/dL ABG Oxyhemoglobin % ABG Carboxyhemoglobin (0.0-1.6) % ABG Methemoglobin % Jose Manuel Test O2 Delivery Device Oxygen Flow Rate L Sodium 140 (140-148) mmol/L Potassium 4.1 (3.6-5.2) mmol/L Chloride 108 (100-108) mmol/L Carbon Dioxide 17 L (21-32) mmol/L Anion Gap 19.1 H (5.0-14.0) mmol/L BUN 31 H (7-18) mg/dL Creatinine 1.4 H (0.6-1.0) mg/dL Est Cr Clr Drug Dosing 22.25 mL/min Estimated GFR (MDRD) 36 L (>60) Glucose 275 H (74-106) mg/dL Lactic Acid 9.3 H (0.4-2.0) mmol/L Calcium 7.0 L (8.5-10.1) mg/dL Phosphorus (2.5-4.9) mg/dL Magnesium (1.8-2.4) mg/dL Total Bilirubin (0.2-1.0) mg/dL AST (15-37) U/L ALT (12-78) U/L Alkaline Phosphatase (46-116) U/L Total Protein (6.4-8.2) g/dL Albumin (3.4-5.0) g/dL Globulin (2.3-3.5) g/dL Albumin/Globulin Ratio (1.2-2.2) Blood Type Gel Antibody Screen Crossmatch 02/23/18 02/23/18 02/23/18 Range/Units 04:10 04:10 04:35 WBC 18.5 H (4.5-11.0) K/uL RBC 2.46 L (3.30-5.50) M/uL Hgb 7.7 L (12.0-15.0) g/dL Hct 23.9 L (36.0-48.0) % MCV 97 (80-98) fL MCH 31 (27-31) pg MCHC 32 (32-36) % Plt Count 57 L (150-400) K/uL Add Manual Diff Yes Neutrophils % (Manual) 80 H (36-66) % Band Neutrophils % 15 H (5-11) % Lymphocytes % (Manual) 4 L (24-44) % Monocytes % (Manual) 1 L (2-6) % Puncture Site ABG pH (7.350-7.450) ABG pCO2 (35.0-42.0) mmHg ABG pO2 (75.0-100.0) mmHg ABG HCO3 (22.0-26.0) mmol/L ABG Total CO2 (21.0-25.0) mmol/L ABG O2 Saturation (95.0-98.0) % ABG O2 Content (15.0-23.0) %vol ABG Base Excess mm/L ABG Hemoglobin (12.0-16.0) g/dL ABG Oxyhemoglobin % ABG Carboxyhemoglobin (0.0-1.6) % ABG Methemoglobin % Jose Manuel Test O2 Delivery Device Oxygen Flow Rate L Sodium 138 L (140-148) mmol/L Potassium 4.3 (3.6-5.2) mmol/L Chloride 105 (100-108) mmol/L Carbon Dioxide 18 L (21-32) mmol/L Anion Gap 19.3 H (5.0-14.0) mmol/L BUN 35 H (7-18) mg/dL Creatinine 1.6 H (0.6-1.0) mg/dL Est Cr Clr Drug Dosing 19.47 mL/min Estimated GFR (MDRD) 31 L (>60) Glucose 365 H (74-106) mg/dL Lactic Acid (0.4-2.0) mmol/L Calcium 7.0 L (8.5-10.1) mg/dL Phosphorus 5.4 H (2.5-4.9) mg/dL Magnesium 1.4 L (1.8-2.4) mg/dL Total Bilirubin 0.6 (0.2-1.0) mg/dL AST 1370 H (15-37) U/L ALT 255 H (12-78) U/L Alkaline Phosphatase 98 (46-116) U/L Total Protein 2.9 L (6.4-8.2) g/dL Albumin 0.8 L (3.4-5.0) g/dL Globulin 2.1 L (2.3-3.5) g/dL Albumin/Globulin Ratio 0.4 L (1.2-2.2) Blood Type A POSITIVE Gel Antibody Screen Negative Crossmatch See Detail 02/23/18 02/23/18 Range/Units 05:00 05:00 WBC (4.5-11.0) K/uL RBC (3.30-5.50) M/uL Hgb (12.0-15.0) g/dL Hct (36.0-48.0) % MCV (80-98) fL MCH (27-31) pg MCHC (32-36) % Plt Count (150-400) K/uL Add Manual Diff Neutrophils % (Manual) (36-66) % Band Neutrophils % (5-11) % Lymphocytes % (Manual) (24-44) % Monocytes % (Manual) (2-6) % Puncture Site A-line ABG pH 7.429 (7.350-7.450) ABG pCO2 26.0 L (35.0-42.0) mmHg ABG pO2 83.9 (75.0-100.0) mmHg ABG HCO3 16.9 L (22.0-26.0) mmol/L ABG Total CO2 15.9 L (21.0-25.0) mmol/L ABG O2 Saturation 95.7 (95.0-98.0) % ABG O2 Content 11.9 L (15.0-23.0) %vol ABG Base Excess -6.1 mm/L ABG Hemoglobin 8.8 L (12.0-16.0) g/dL ABG Oxyhemoglobin 94.5 % ABG Carboxyhemoglobin 0.6 (0.0-1.6) % ABG Methemoglobin 0.7 % Jose Manuel Test A-line O2 Delivery Device Ventilator Oxygen Flow Rate L Sodium (140-148) mmol/L Potassium (3.6-5.2) mmol/L Chloride (100-108) mmol/L Carbon Dioxide (21-32) mmol/L Anion Gap (5.0-14.0) mmol/L BUN (7-18) mg/dL Creatinine (0.6-1.0) mg/dL Est Cr Clr Drug Dosing mL/min Estimated GFR (MDRD) (>60) Glucose (74-106) mg/dL Lactic Acid 6.4 H (0.4-2.0) mmol/L Calcium (8.5-10.1) mg/dL Phosphorus (2.5-4.9) mg/dL Magnesium (1.8-2.4) mg/dL Total Bilirubin (0.2-1.0) mg/dL AST (15-37) U/L ALT (12-78) U/L Alkaline Phosphatase (46-116) U/L Total Protein (6.4-8.2) g/dL Albumin (3.4-5.0) g/dL Globulin (2.3-3.5) g/dL Albumin/Globulin Ratio (1.2-2.2) Blood Type Gel Antibody Screen Crossmatch [place] Results Last 24 Hours: Microbiology 02/22/18 05:54 Gram Stain - Final Abdomen - Abscess Wound Culture - Preliminary Anaerobic Culture - Preliminary NO GROWTH AFTER 1 DAY Med Orders - Current: Current Medications Albuterol/Ipratropium (Duoneb 3.0-0.5 Mg/3 Ml) 3 ml INH ASDIRECTED PRN PRN Reason: RESP Last Admin: 02/17/18 18:57 Dose: 3 ml Albuterol/Ipratropium (Duoneb 3.0-0.5 Mg/3 Ml) 3 ml INH QIDRT ANGELA Last Admin: 02/22/18 20:38 Dose: 3 ml Budesonide (Pulmicort) 0.5 mg INH BIDRT ANGELA Last Admin: 02/22/18 20:38 Dose: 0.5 mg Dextrose (Glutose 15) 15 gm PO ASDIRECTED PRN PRN Reason: HYPOGLYCEMIA Dextrose/Water (Dextrose 50% In Water) 50 ml IVPUSH ASDIRECTED PRN PRN Reason: HYPOGLYCEMIA Fentanyl (Duragesic) 12 mcg TRDERM Q72H ANGELA Last Admin: 02/22/18 10:04 Dose: Not Given Glucagon (Glucagen) 1 mg IM ASDIRECTED PRN PRN Reason: HYPOGLYCEMIA Hydromorphone HCl (Dilaudid [employer] 15 Mg In Ns 30 Ml) 15 mg IV ASDIRECTED ANGELA; Protocol Last Admin: 02/22/18 15:09 Dose: 15 mg Dextrose/Lactated Ringer's (Dextrose 5%-Lactated Ringers) 1,000 mls @ 100 mls/ hr IV ASDIRECTED ANGELA Last Admin: 02/23/18 04:52 Dose: 100 mls/hr Propofol (Diprivan 100 Ml) 100 mls @ 1.46 mls/hr IV TITRATE ANGELA; Protocol Last Titration: 02/22/18 13:30 Dose: 5 mcg/kg/min, 1.46 mls/hr Lactated Ringer's (Ringers, Lactated) 1,000 mls @ 125 mls/hr IV ASDIRECTED ANGELA Last Admin: 02/23/18 03:39 Dose: 125 mls/hr Aztreonam/Dextrose 1 gm/ (Premix) 50 mls @ 100 mls/hr IV Q8H ANGELA Last Admin: 02/23/18 01:39 Dose: 100 mls/hr Meropenem 1 gm/ Sodium (Chloride) 50 mls @ 100 mls/hr IV Q12H ANGELA Last Admin: 02/23/18 04:44 Dose: 100 mls/hr Vasopressin 100 units/ (Dextrose/Water) 255 mls @ 1.53 mls/hr IV TITRATE ANGELA; Protocol Last Titration: 02/22/18 15:57 Dose: 0.02 units/min, 3.06 mls/hr Norepinephrine Bitartrate 8 mg (/ Dextrose/Water) 500 mls @ 7.5 mls/hr IV TITRATE ANGELA; Protocol Last Admin: 02/23/18 04:48 Dose: 11 mcg/min, 41.25 mls/hr Magnesium Sulfate 2 gm/ Premix 50 mls @ 25 mls/hr IV Q6H [facility] Stop: 02/23/18 17:14 Insulin Aspart (Novolog) 0 unit SUBCUT Q6H PRN; Protocol PRN Reason: MEDIUM CORRECTIONAL DOSE Insulin Detemir (Levemir) 10 unit SUBCUT Q12H [facility] Naloxone HCl (Narcan) 0.1 mg IV ASDIRECTED PRN PRN Reason: decreased respiratory rate Fentanyl Patch Check 1 each TOP BID [facility] Last Admin: 02/22/18 20:38 Dose: 1 each Pantoprazole Sodium (Protonix Iv) 40 mg IV Q24H [facility] Last Admin: 02/22/18 13:09 Dose: 40 mg Discontinued Medications Acetaminophen (Tylenol Extra Strength) 1,000 mg PO ONETIME ONE Stop: 02/14/18 08:16 Last Admin: 02/14/18 08:31 Dose: 1,000 mg Acetaminophen (Tylenol) 650 mg PO Q6H [facility] Last Admin: 02/22/18 01:34 Dose: 650 mg Albuterol/Ipratropium (Duoneb 3.0-0.5 Mg/3 Ml) 3 ml NEB ONETIME ONE Stop: 02/14/18 09:46 Last Admin: 02/14/18 12:32 Dose: 3 ml Allopurinol (Zyloprim) 150 mg PO DAILY [facility] Last Admin: 02/21/18 08:06 Dose: 150 mg Alvimopan (Entereg) 12 mg PO ONETIME ONE Stop: 02/14/18 08:16 Last Admin: 02/14/18 08:31 Dose: 12 mg Alvimopan (Entereg) 12 mg PO BID [facility] Stop: 02/21/18 09:01 Last Admin: 02/21/18 08:05 Dose: 12 mg Aspirin (Halfprin) 81 mg PO DAILY [facility] Last Admin: 02/21/18 08:06 Dose: 81 mg Aztreonam (Azactam) Confirm Administered Dose 1 gm .ROUTE .STK-MED ONE Stop: 02/22/18 06:21 Last Admin: 02/22/18 06:20 Dose: 2 gm Aztreonam (Azactam) Confirm Administered Dose 1 gm .ROUTE .STK-MED ONE Stop: 02/22/18 06:21 Bisacodyl (Dulcolax) 10 mg PO BID [facility] Last Admin: 02/21/18 20:54 Dose: 10 mg Bisacodyl (Dulcolax) 10 mg RECTAL TID [facility] Last Admin: 02/21/18 21:01 Dose: 10 mg Bisacodyl (Dulcolax) 10 mg RECTAL ONETIME ONE Stop: 02/21/18 10:01 Last Admin: 02/21/18 09:37 Dose: Not Given Bupivacaine HCl (Marcaine 0.5%) Confirm Administered Dose 50 ml .ROUTE .STK-MED ONE Stop: 02/16/18 06:45 Last Admin: 02/16/18 07:44 Dose: 10 ml Carvedilol (Coreg) 3.125 mg PO BIDMEALS [facility] Last Admin: 02/21/18 17:39 Dose: 3.125 mg Cefoxitin Sodium (Mefoxin) Confirm Administered Dose 2 gm .ROUTE .STK-MED ONE Stop: 02/14/18 08:44 Ropivacaine 25 ml/Dexamethasone 8 mg/Epinephrine HCl 0.4 mg/ Sodium Chloride 52.6 ml 0 ml NERVRT ASDIRECTED [facility] Neomycin/Polymyxin 1 ml/ (Sodium Chloride 500 ml) 0 ml IRR ONETIME ONE Stop: 02/14/18 08:16 Last Admin: 02/14/18 08:35 Dose: 750 irr Ropivacaine 25 ml/Dexamethasone 8 mg/Epinephrine HCl 0.4 mg/ Sodium Chloride 52.6 ml 0 ml NERVRT ASDIRECTED [facility] Last Admin: 02/16/18 07:59 Dose: 80 syringe Dexamethasone (Dexamethasone) Confirm Administered Dose 4 mg .ROUTE .STK-MED ONE Stop: 02/14/18 09:36 Dexamethasone (Dexamethasone) Confirm Administered Dose 4 mg .ROUTE .STK-MED ONE Stop: 02/22/18 04:44 Diphenhydramine HCl (Benadryl) 25 mg IVPUSH Q6H PRN PRN Reason: Itching Last Admin: 02/14/18 15:58 Dose: 25 mg Ephedrine Sulfate (Ephedrine Sulfate) Confirm Administered Dose 50 mg .ROUTE .STK-MED ONE Stop: 02/14/18 13:50 Ephedrine Sulfate (Ephedrine Sulfate) Confirm Administered Dose 50 mg .ROUTE .STK-MED ONE Stop: 02/22/18 05:33 Erythromycin Ethylsuccinate (Eryped 400) 250 mg NGTUBE Q6H [facility] Last Admin: 02/22/18 04:26 Dose: Not Given Fentanyl (Sublimaze) Confirm Administered Dose 250 mcg .ROUTE .ST-MED ONE Stop: 02/14/18 09:36 Fentanyl (Sublimaze) Confirm Administered Dose 100 mcg .ROUTE .STK-MED ONE Stop: 02/16/18 07:10 Fentanyl (Sublimaze) Confirm Administered Dose 250 mcg .ROUTE .[facility] ONE Stop: 02/22/18 04:44 Fentanyl (Duragesic) Confirm Administered Dose 12 mcg .ROUTE .ST-MED ONE Stop: 02/22/18 05:42 Last Admin: 02/22/18 05:51 Dose: 12 mcg Fentanyl (Sublimaze) Confirm Administered Dose 100 mcg .ROUTE .[facility] ONE Stop: 02/23/18 07:51 Furosemide (Lasix) 40 mg PO DAILY [facility] Last Admin: 02/18/18 09:45 Dose: 40 mg Furosemide (Lasix) 20 mg IVPUSH ONETIME STA Stop: 02/17/18 20:03 Last Admin: 02/17/18 20:30 Dose: 20 mg Furosemide (Lasix) 40 mg IVPUSH NOW ONE Stop: 02/17/18 21:33 Last Admin: 02/17/18 21:53 Dose: 40 mg Furosemide (Lasix) 20 mg IVPUSH NOW ONE Stop: 02/21/18 10:01 Last Admin: 02/21/18 09:50 Dose: 20 mg Furosemide (Lasix) 20 mg IV NOW ONE Stop: 02/22/18 09:01 Glucagon (Glucagen) Confirm Administered Dose 1 mg .ROUTE .[facility] ONE Stop: 02/14/18 14:26 Glycopyrrolate (Robinul) Confirm Administered Dose 1 mg .ROUTE .ST-MED ONE Stop: 02/14/18 09:36 Glycopyrrolate (Robinul) Confirm Administered Dose 1 mg .ROUTE .STK-MED ONE Stop: 02/22/18 04:44 Heparin Sodium (Porcine) (Heparin Lock Flush 100 Units/Ml) Confirm Administered Dose 500 units .ROUTE .STK-MED ONE Stop: 02/22/18 06:05 Last Admin: 02/22/18 08:30 Dose: 500 units Heparin Sodium (Porcine) (Heparin Sodium) Confirm Administered Dose 5,000 units .ROUTE .STK-MED ONE Stop: 02/22/18 07:34 Heparin Sodium (Porcine) (Heparin Sodium) Confirm Administered Dose 5,000 units .ROUTE .[facility]-MED ONE Stop: 02/22/18 09:11 Last Admin: 02/22/18 10:43 Dose: Not Given Hydromorphone HCl (Dilaudid [employer]ary [employer] 15 Mg In Ns 30 Ml) 0 mg IV ASDIRECTED PRN; Protocol PRN Reason: [employer] PAIN [employer]OL Last Admin: 02/19/18 06:32 Dose: 15 mg Hydromorphone HCl (Dilaudid Rotary [employer] Operator 15 Mg In Ns 30 Ml) Confirm Administered Dose 15 mg IV .[facility]-MED ONE Stop: 02/17/18 10:18 Last Admin: 02/17/18 10:31 Dose: Not Given Hydroxyzine HCl (Vistaril) 0 mg IM Q4H PRN PRN Reason: PAIN Last Admin: 02/22/18 01:27 Dose: 75 mg Hydroxyzine HCl (Vistaril) 75 mg IM ONETIME ONE Stop: 02/17/18 11:01 Last Admin: 02/17/18 11:00 Dose: 75 mg Dextrose/Lactated Ringer's (Dextrose 5%-Lactated Ringers) 1,000 mls @ 100 mls/ hr IV ASDIRECTED ANGELA Last Admin: 02/14/18 12:44 Dose: 100 mls/hr Meropenem 500 mg/ Sodium (Chloride) 50 mls @ 100 mls/hr IV ONETIME ONE Stop: 02/14/18 10:14 Last Admin: 02/14/18 12:59 Dose: 100 mls/hr Fentanyl 2,500 mcg/ Sodium (Chloride) 250 mls @ 0 mls/hr EPIDUR TITRATE ANGELA; Protocol Fentanyl Citrate 2,500 mcg/ (Sodium Chloride) 250 mls @ 0 mls/hr EPIDUR TITRATE ANGELA; Protocol Last Admin: 02/15/18 15:05 Dose: 8 mls/hr, 8 mls/hr Lactated Ringer's (Ringers, Lactated) Confirm Administered Dose 1,000 mls @ as directed .ROUTE .[facility]-MED ONE Stop: 02/14/18 14:38 Dextrose/Lactated Ringer's (Dextrose 5%-Lactated Ringers) 1,000 mls @ 100 mls/ hr IV ASDIRECTED ANGELA Dextrose/Lactated Ringer's (Dextrose 5%-Lactated Ringers) 1,000 mls @ 150 mls/ hr IV ASDIRECTED ANGELA Last Admin: 02/15/18 02:48 Dose: 150 mls/hr Cefoxitin Sodium 2 gm/ Sodium (Chloride) 50 mls @ 100 mls/hr IV Q6H ANGELA Last Admin: 02/17/18 08:48 Dose: 100 mls/hr Potassium Chloride/Dextrose/Sod Cl (D5 1/2 Ns W/ 20 Meq/L Kcl) 1,000 mls @ 80 mls/hr IV ASDIRECTED ANGELA Last Admin: 02/15/18 09:37 Dose: 80 mls/hr Naloxone HCl 0.4 mg/ Potassium (Chloride/Dextrose/Sod Cl) 1,001 mls @ 80.08 mls /hr IV ASDIRECTED ANGELA Last Admin: 02/16/18 04:38 Dose: 80.08 mls/hr Fentanyl Citrate 2,500 mcg/ (Sodium Chloride) 250 mls @ 4 mls/hr EPIDUR TITRATE ANGELA; Protocol Last Admin: 02/15/18 22:56 Dose: 4 ml/hr, 4 mls/hr Potassium Chloride/Dextrose/Sod Cl (D5 1/2 Ns W/ 20 Meq/L Kcl) 1,000 mls @ 40 mls/hr IV ASDIRECTED ANGELA Last Admin: 02/17/18 10:12 Dose: 100 mls/hr Potassium Phosphate 30 mmole/ (Sodium Chloride) 160 mls @ 54 mls/hr IV Q3H ANG[facility]A Stop: 02/17/18 16:58 Last Admin: 02/17/18 16:49 Dose: 54 mls/hr Dextrose/Lactated Ringer's (Dextrose 5%-Lactated Ringers) 1,000 mls @ 100 mls/ hr IV ASDIRECTED ANGELA Last Admin: 02/19/18 08:52 Dose: 100 mls/hr Lactated Ringer's (Ringers, Lactated) 1,000 mls @ 250 mls/hr IV ASDIRECTED ANGELA Stop: 02/18/18 14:31 Last Admin: 02/18/18 11:28 Dose: 250 mls/hr Acetaminophen 1,000 mg/ Premix 100 mls @ 400 mls/hr IV NOW ONE Stop: 02/18/18 11:16 Last Admin: 02/18/18 11:33 Dose: Not Given Dextrose/Lactated Ringer's (Dextrose 5%-Lactated Ringers) 1,000 mls @ 75 mls/ hr IV ASDIRECTED ANGELA Last Admin: 02/20/18 23:39 Dose: 75 mls/hr Potassium Phosphate 22.5 mmole (/ Sodium Chloride) 257.5 mls @ 86 mls/hr IV Q3H ANGELA Stop: 02/21/18 15:59 Last Admin: 02/21/18 12:55 Dose: 86 mls/hr Dextrose/Lactated Ringer's (Dextrose 5%-Lactated Ringers) 1,000 mls @ 50 mls/ hr IV ASDIRECTED ANGELA Last Admin: 02/21/18 16:35 Dose: 50 mls/hr Meropenem 500 mg/ Sodium (Chloride) 50 mls @ 100 mls/hr IV ONETIME ONE Stop: 02/22/18 04:48 Last Admin: 02/22/18 05:30 Dose: 100 mls/hr Lactated Ringer's (Ringers, Lactated) Confirm Administered Dose 1,000 mls @ as directed .ROUTE .STK-MED ONE Stop: 02/22/18 05:19 Sodium Chloride (Normal Saline) Confirm Administered Dose 250 mls @ as directed .ROUTE .STK-MED ONE Stop: 02/22/18 06:14 Norepinephrine Bitartrate 4 mg (/ Dextrose/Water) 250 mls @ 7.5 mls/hr IV TITRATE ANGELA; Protocol Last Titration: 02/22/18 10:29 Dose: 11 mcg/min, 41.25 mls/hr Lactated Ringer's (Ringers, Lactated) Confirm Administered Dose 1,000 mls @ as directed .ROUTE .STK-MED ONE Stop: 02/22/18 07:12 Meropenem 500 mg/ Sodium (Chloride) 50 mls @ 100 mls/hr IV Q6H ANGELA Last Admin: 02/22/18 10:31 Dose: 100 mls/hr Lactated Ringer's (Ringers, Lactated) 1,000 mls @ 999 mls/hr IV .BOLUS ONE Stop: 02/22/18 11:00 Last Admin: 02/22/18 10:00 Dose: 999 mls/hr Lactated Ringer's (Ringers, Lactated) 750 mls @ 999 mls/hr IV ONETIME ONE Stop: 02/22/18 12:00 Last Admin: 02/22/18 11:15 Dose: 999 mls/hr Norepinephrine Bitartrate 4 mg (/ Dextrose/Water) 250 mls @ 7.5 mls/hr IV TITRATE ANGELA; Protocol Stop: 02/22/18 17:30 Last Titration: 02/22/18 17:02 Dose: 12 mcg/min, 45 mls/hr Lactated Ringer's (Ringers, Lactated) 1,000 mls @ 999 mls/hr IV ASDIRECTED ONE Stop: 02/22/18 14:30 Last Admin: 02/22/18 13:30 Dose: 999 mls/hr Lactated Ringer's (Ringers, Lactated) 1,000 mls @ 500 mls/hr IV ONETIME ONE Stop: 02/22/18 16:29 Last Admin: 02/22/18 14:19 Dose: 500 mls/hr Vasopressin 100 units/ (Dextrose/Water) 255 mls @ 1.53 mls/hr IV TITRATE ANGELA; Protocol Lactated Ringer's (Ringers, Lactated) 1,000 mls @ 250 mls/hr IV ONETIME ONE Stop: 02/22/18 20:29 Last Infusion: 02/22/18 20:04 Dose: 125 mls/hr Ibuprofen (Motrin) 400 mg PO Q6H [facility] Last Admin: 02/17/18 08:22 Dose: 400 mg Insulin Aspart (Novolog) Confirm Administered Dose 300 unit .ROUTE .STK-MED ONE Stop: 02/23/18 06:25 Last Admin: 02/23/18 06:43 Dose: 10 units Insulin Detemir (Levemir) Confirm Administered Dose 300 unit .ROUTE .STK-MED ONE Stop: 02/23/18 06:09 Last Admin: 02/23/18 06:43 Dose: 10 units Isosorbide Mononitrate (Imdur) 30 mg PO DAILY [facility] Last Admin: 02/21/18 08:06 Dose: 30 mg Ketamine HCl (Ketalar) 25 mg IV ASDIRECTED ANGELA Levothyroxine Sodium (Levothyroxine) 75 mcg PO ACBREAKFAST [facility] Last Admin: 02/21/18 07:46 Dose: 75 mcg Lidocaine HCl (Xylocaine-Mpf 1%) Confirm Administered Dose 5 ml .ROUTE .STK-MED ONE Stop: 02/14/18 12:41 Last Admin: 02/14/18 16:48 Dose: Not Given Lidocaine HCl (Xylocaine-Mpf 1%) 0.1 ml INJECT ONETIME ONE Stop: 02/14/18 12:43 Last Admin: 02/14/18 16:48 Dose: Not Given Lidocaine/Epinephrine (Xylocaine 1% With Epinephrine 1:100,000) Confirm Administered Dose 50 ml .ROUTE .STK-MED ONE Stop: 02/16/18 06:45 Last Admin: 02/16/18 07:44 Dose: 10 ml Magnesium Hydroxide (Milk Of Magnesia) 30 ml PO BID ANGELA Stop: 02/16/18 21:01 Last Admin: 02/16/18 20:18 Dose: 30 ml Magnesium Hydroxide (Milk Of Magnesia) 30 ml PO ASDIRECTED PRN PRN Reason: * Melatonin (Melatonin) 9 mg PO BEDTIME PRN PRN Reason: Insomnia Last Admin: 02/22/18 00:39 Dose: 9 mg Meperidine HCl (Demerol) 75 mg IM ONETIME ONE Stop: 02/17/18 11:01 Last Admin: 02/17/18 11:00 Dose: 75 mg Meropenem (Merrem) Confirm Administered Dose 500 mg .ROUTE .STK-MED ONE Stop: 02/14/18 08:44 Last Admin: 02/14/18 14:30 Dose: 500 mg Meropenem (Merrem) Confirm Administered Dose 500 mg .ROUTE .STK-MED ONE Stop: 02/16/18 06:45 Last Admin: 02/16/18 07:49 Dose: 500 mg Meropenem (Merrem) Confirm Administered Dose 500 mg .ROUTE .STK-MED ONE Stop: 02/22/18 05:07 Meropenem (Merrem) Confirm Administered Dose 1,500 mg .ROUTE .STK-MED ONE Stop: 02/22/18 05:51 Meropenem (Merrem) Confirm Administered Dose 500 mg .ROUTE .STK-MED ONE Stop: 02/22/18 06:05 Last Admin: 02/22/18 06:00 Dose: 3,500 mg Meropenem (Merrem) Confirm Administered Dose 1,000 mg .ROUTE .STK-MED ONE Stop: 02/22/18 06:40 Meropenem (Merrem) 1,000 mg IRR ONETIME ONE Stop: 02/22/18 07:31 Last Admin: 02/22/18 07:30 Dose: 1,000 mg Meropenem (Merrem) Confirm Administered Dose 1,000 mg .ROUTE .STK-MED ONE Stop: 02/23/18 06:39 Methylprednisolone Sodium Succinate (Solu-Medrol) 40 mg IVPUSH Q12H [facility] Last Admin: 02/22/18 01:34 Dose: 40 mg Metoclopramide HCl (Reglan) 10 mg IVPUSH Q8H [facility] Last Admin: 02/22/18 01:34 Dose: 10 mg Naloxone HCl (Narcan) 0.1 mg IVPUSH Q5M PRN PRN Reason: RESP RATE LESS THAN 6/MINUTE Last Admin: 02/15/18 15:23 Dose: 0.1 mg Neostigmine Methylsulfate (Neostigmine) Confirm Administered Dose 5 mg .ROUTE .STK-MED ONE Stop: 02/14/18 09:36 Neostigmine Methylsulfate (Neostigmine) Confirm Administered Dose 5 mg .ROUTE .STK-MED ONE Stop: 02/22/18 04:44 Nitroglycerin (Nitrostat) 0.4 mg SL ASDIRECTED PRN PRN Reason: CHEST PAIN Ondansetron HCl (Zofran) Confirm Administered Dose 4 mg .ROUTE .STK-MED ONE Stop: 02/14/18 09:36 Ondansetron HCl (Zofran) 4 mg IVPUSH Q4H PRN PRN Reason: NAUSEA Last Admin: 02/22/18 00:43 Dose: 4 mg Ondansetron HCl (Zofran) Confirm Administered Dose 4 mg .ROUTE .STK-MED ONE Stop: 02/22/18 04:44 Pantoprazole Sodium (Protonix Iv) 40 mg IV Q24H [facility] Last Admin: 02/16/18 17:44 Dose: 40 mg Pantoprazole Sodium (Protonix) 40 mg PO ACBREAKFAST [facility] Last Admin: 02/22/18 10:05 Dose: Not Given Trans-Derm Scop (Patch Removal) 0 each TOP ONETIME ONE Stop: 02/16/18 14:01 Last Admin: 02/16/18 15:05 Dose: Not Given Phenylephrine HCl (Manuel-Synephrine) Confirm Administered Dose 10 mg .ROUTE .STK- MED ONE Stop: 02/22/18 05:40 Prednisone (Prednisone) 2.5 mg PO DAILY [facility] Last Admin: 02/18/18 09:45 Dose: 2.5 mg Prednisone (Prednisone) 10 mg PO DAILY [facility] Last Admin: 02/18/18 11:38 Dose: 10 mg Propofol (Diprivan 20 Ml) Confirm Administered Dose 200 mg .ROUTE .STK-MED ONE Stop: 02/14/18 09:36 Propofol (Diprivan 20 Ml) Confirm Administered Dose 200 mg .ROUTE .STK-MED ONE Stop: 02/16/18 07:10 Propofol (Diprivan 20 Ml) Confirm Administered Dose 200 mg .ROUTE .STK-MED ONE Stop: 02/22/18 04:44 Propofol (Diprivan 20 Ml) Confirm Administered Dose 200 mg .ROUTE .STK-MED ONE Stop: 02/23/18 06:59 Rocuronium [place] (Zemuron) Confirm Administered Dose 50 mg .ROUTE .STK-MED ONE Stop: 02/14/18 09:36 Rocuronium [place] (Zemuron) Confirm Administered Dose 50 mg .ROUTE .STK-MED ONE Stop: 02/22/18 04:44 Rocuronium [place] (Zemuron) Confirm Administered Dose 50 mg .ROUTE .STK-MED ONE Stop: 02/23/18 06:59 Scopolamine (Transderm-Scop) 1.5 mg TOP ONETIME ONE Stop: 02/14/18 08:16 Last Admin: 02/14/18 08:32 Dose: 1.5 mg Senna (Senna) 8.6 mg PO BEDTIME [facility] Last Admin: 02/15/18 21:24 Dose: 8.6 mg Senna (Senna) 17.2 mg PO BEDTIME [facility] Last Admin: 02/21/18 20:54 Dose: 17.2 mg Succinylcholine Chloride (Quelicin) Confirm Administered Dose 200 mg .ROUTE .STK -MED ONE Stop: 02/14/18 09:36 Succinylcholine Chloride (Quelicin) Confirm Administered Dose 200 mg .ROUTE .STK -MED ONE Stop: 02/22/18 04:44 Theophylline (Pablito-24) 400 mg PO DAILY [facility] Last Admin: 02/19/18 09:31 Dose: 400 mg Tramadol HCl (Ultram) 50 mg PO Q6H PRN PRN Reason: PAIN Last Admin: 02/17/18 04:00 Dose: 50 mg - Exam Quality Assessment: Supplemental Oxygen (Ventilator), Central Line/PICC, Urine Catheter General: Sedated HEENT: Pupils Equal, Pupils Reactive Lungs: Normal Respiratory Effort, Decreased Breath Sounds. No: Rales, Rhonchi, Wheezing Cardiovascular: No Murmurs, Irregular Rhythm, Tachycardia. No: Murmurs, Gallops , Rubs GI/Abdominal Exam: Other (Surgical dressing in place) Extremities: Non-Tender, Pedal Edema Skin: Warm, Dry Consult PN Assessment/Plan Procedures: Procedures AGENT NOS ASSAY W/OPTIC (01/19/18) AIRWAY INHALATION TREATMENT (01/19/18) ASSAY OF AMYLASE (01/02/18) ASSAY OF LIPASE (01/19/18) ASSAY OF MAGNESIUM (01/19/18) ASSAY OF PHOSPHORUS (01/19/18) ASSAY OF SERUM POTASSIUM (01/19/18) ASSAY THYROID STIM HORMONE (01/19/18) C DIFF AMPLIFIED PROBE (01/19/18) C-REACTIVE PROTEIN (01/19/18) CARDIOVASCULAR STRESS TEST (04/12/16) CHEST WALL MANIPULATION (12/19/17) CHEST WALL MANIPULATION (12/19/17) COMP SCREEN MAMMOGRAM ADD-ON (04/05/15) COMPLETE CBC AUTOMATED (01/19/18) COMPLETE CBC W/AUTO DIFF WBC (01/19/18) COMPREHEN METABOLIC PANEL (01/19/18) CT ABD & PELV W/CONTRAST (01/19/18) CT ABD & PELVIS W/O CONTRAST (01/02/18) CULTURE AEROBIC IDENTIFY (12/19/17) CULTURE OTHR SPECIMN AEROBIC (12/19/17) CULTURE SCREEN ONLY (10/09/17) EGD BIOPSY SINGLE/MULTIPLE (10/09/17) EMERGENCY DEPT VISIT (01/19/18) EMERGENCY DEPT VISIT (01/19/18) HT MUSCLE IMAGE SPECT MULT (04/12/16) HYDRATE IV INFUSION ADD-ON (01/19/18) LEUKOCYTE ASSESSMENT FECAL (01/02/18) MANUAL THERAPY 1/> REGIONS (12/17/17) METABOLIC PANEL TOTAL CA (01/19/18) NEUROMUSCULAR REEDUCATION (12/17/17) OVA AND PARASITES SMEARS (01/19/18) PROTHROMBIN TIME (01/19/18) PT EVAL MOD COMPLEX 30 MIN (08/13/17) ROUTINE VENIPUNCTURE (01/19/18) SMEAR COMPLEX STAIN (01/19/18) SMEAR GRAM STAIN (12/19/17) STOOL CULTR AEROBIC BACT EA (01/19/18) THER/PROPH/DIAG INJ IV PUSH (01/19/18) THERAPEUTIC EXERCISES (12/17/17) TISSUE EXAM BY PATHOLOGIST (10/09/17) TX/PRO/DX 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 She has not required quite as much norepinephrine since yesterday afternoon. Taken back to the operating room this morning by Dr. Pate. Current plan is for delayed primary closure in 2 days. -Continue current antibiotic therapy with meropenem and Azactam, pending culture results -Cultures from surgery pending -IV fluids as ordered by Dr. Pate -IV norepinephrine and vasopressin to maintain mean arterial pressure of greater than 65 HYPOXIC RESPIRATORY FAILURE-acute on chronic, status post extensive surgical procedure earlier this morning. Has been left on mechanical ventilation, we'll plan to monitor over the next 24 hours and consider spontaneous breathing trial if she is more stable in the morning. When she stabilizes hemodynamically need to work towards extubation. -Continue nebulizer therapy -Begin spontaneous breathing trial tomorrow, if more stable ACUTE KIDNEY renal function worse with very poor urinary output. Expect improvement over the next 24-48 hours now that blood pressure is within desired range -Continue closely monitor urine output and renal function
[2018-02-23] MEDS: FENTANYL PATCH CHECK TOP SCH ×2 (09:16→22:46)
[2018-02-23] MEDS: Albuterol/Ipratropium 3.0-0.5 MG/3 ML Neb Soln INH SCH ×4 (09:16→21:04)
[2018-02-23] MEDS: Magnesium Sulfate/Water 2 GM in Premix Bag 1 BAG IV SCH ×2 (09:51→14:31)
[2018-02-23] MEDS ORDERED: Vasopressin 40 UNITS in Dextrose 5% in Water 98 ML IV SCH ×2 (10:00)
[2018-02-23] MEDS: Budesonide 0.5 MG/2 ML Neb Susp INH SCH ×2 (10:27→21:04)
[2018-02-23] MEDS: Pantoprazole 40 MG Vial IV SCH (13:22)
[2018-02-23] MEDS: Insulin Detemir 100 Units/ML 3 ML Pen SUBCUT SCH (18:01)
[2018-02-24] MEDS: Dextrose 5%-Lactated Ringers 1,000 ML IV SCH ×2 (00:40→10:13)
[2018-02-24] MEDS: Aztreonam/Dextrose-Water 1 GM in Premix Bag 1 BAG IV SCH (01:31)
[2018-02-24] MEDS: Lactated Ringers 1,000 ML IV SCH ×2 (02:57→10:15)
[2018-02-24] MEDS: Insulin Detemir 100 Units/ML 3 ML Pen SUBCUT SCH (06:11)
[2018-02-24] MEDS: Budesonide 0.5 MG/2 ML Neb Susp INH SCH ×2 (07:59→21:13)
[2018-02-24] MEDS: Albuterol/Ipratropium 3.0-0.5 MG/3 ML Neb Soln INH SCH ×4 (08:00→21:13)
[2018-02-24] MEDS: FENTANYL PATCH CHECK TOP SCH ×2 (09:32→21:15)
[2018-02-24] MEDS ORDERED: Vancomycin 1 GM SDV IV SCH (10:00)
[2018-02-24] MEDS: Fluconazole/Normal Saline 200 MG in Premix Bag 1 BAG IV SCH (10:11)
[2018-02-24] MEDS: Potassium Phosphates 22.5 MMOLE in Sodium Chloride 0.9% 100 ML IV SCH ×2 (10:51→13:01)
--- NOTE | 2018-02-24 11:36 | PCM.CONSN ---
- General Info Date of Service: 02/24/18 Subjective Update: Fantasma has improved since yesterday, off of norepinephrine and vasopressin. Currently receiving a sedation holiday to undergo a spontaneous breathing trial. Urine output has improved and kidney function is also shown improvement since yesterday. Cultures growing enterococcus, pansensitive, but she is allergic to penicillins. Yeast is also growing from the abdomen. Because of intubation is unable to provide information concerning symptoms or review of systems. Functional Status: Reports: Pain Controlled - Patient Data Vitals - Most Recent: Last Vital Signs Temp 97.9 F 02/24/18 10:21 Pulse 111 H 02/24/18 08:03 Resp 16 02/24/18 10:57 BP 155/58 H 02/24/18 10:57 Pulse Ox 95 02/24/18 10:57 Weight - Most Recent: 102 lb I&O - Last 24 Hours: Intake & Output 02/23/18 02/24/18 02/24/18 22:59 06:59 14:59 Intake Total 2313 3162 0 Output Total 497 660 390 Balance 1816 2502 -390 Lab Results Last 24 Hours: Laboratory Results - last 24 hr 02/23/18 02/23/18 02/23/18 Range/Units 04:35 16:43 16:43 WBC (4.5-11.0) K/uL RBC (3.30-5.50) M/uL Hgb (12.0-15.0) g/dL Hct (36.0-48.0) % MCV (80-98) fL MCH (27-31) pg MCHC (32-36) % Plt Count (150-400) K/uL Puncture Site A-line ABG pH 7.410 (7.350-7.450) ABG pCO2 33.1 L (35.0-42.0) mmHg ABG pO2 74.7 L (75.0-100.0) mmHg ABG HCO3 20.6 L (22.0-26.0) mmol/L ABG Total CO2 19.4 L (21.0-25.0) mmol/L ABG O2 Saturation 94.4 L (95.0-98.0) % ABG O2 Content 11.8 L (15.0-23.0) %vol ABG Base Excess -3.0 mm/L ABG Hemoglobin 9.0 L (12.0-16.0) g/dL ABG Oxyhemoglobin 93.0 % ABG Carboxyhemoglobin 0.9 (0.0-1.6) % ABG Methemoglobin 0.6 % Jose Manuel Test A-line O2 Delivery Device Ventilator Oxygen Flow Rate L Sodium (140-148) mmol/L Potassium (3.6-5.2) mmol/L Chloride (100-108) mmol/L Carbon Dioxide (21-32) mmol/L Anion Gap (5.0-14.0) mmol/L BUN (7-18) mg/dL Creatinine (0.6-1.0) mg/dL Est Cr Clr Drug Dosing mL/min Estimated GFR (MDRD) (>60) Glucose (74-106) mg/dL Lactic Acid 3.4 H (0.4-2.0) mmol/L Calcium (8.5-10.1) mg/dL Phosphorus (2.5-4.9) mg/dL Magnesium (1.8-2.4) mg/dL Total Bilirubin (0.2-1.0) mg/dL AST (15-37) U/L ALT (12-78) U/L Alkaline Phosphatase (46-116) U/L NT-Pro-B Natriuret Pep (5-450) pg/mL Total Protein (6.4-8.2) g/dL Albumin (3.4-5.0) g/dL Globulin (2.3-3.5) g/dL Albumin/Globulin Ratio (1.2-2.2) Blood Type A POSITIVE Gel Antibody Screen Negative Crossmatch See Detail 02/24/18 02/24/18 02/24/18 Range/Units 05:50 05:50 05:50 WBC 18.1 H (4.5-11.0) K/uL RBC 3.19 L (3.30-5.50) M/uL Hgb 9.1 L (12.0-15.0) g/dL Hct 27.4 L (36.0-48.0) % MCV 86 (80-98) fL MCH 29 (27-31) pg MCHC 33 (32-36) % Plt Count 36 L (150-400) K/uL Puncture Site Line ABG pH 7.495 H (7.350-7.450) ABG pCO2 28.7 L (35.0-42.0) mmHg ABG pO2 96.1 (75.0-100.0) mmHg ABG HCO3 21.9 L (22.0-26.0) mmol/L ABG Total CO2 20.2 L (21.0-25.0) mmol/L ABG O2 Saturation 97.9 (95.0-98.0) % ABG O2 Content 12.4 L (15.0-23.0) %vol ABG Base Excess -0.4 mm/L ABG Hemoglobin 9.2 L (12.0-16.0) g/dL ABG Oxyhemoglobin 94.3 % ABG Carboxyhemoglobin 3.0 H (0.0-1.6) % ABG Methemoglobin 0.7 % Jose Manuel Test O2 Delivery Device Ventilator Oxygen Flow Rate L Sodium (140-148) mmol/L Potassium (3.6-5.2) mmol/L Chloride (100-108) mmol/L Carbon Dioxide (21-32) mmol/L Anion Gap (5.0-14.0) mmol/L BUN (7-18) mg/dL Creatinine (0.6-1.0) mg/dL Est Cr Clr Drug Dosing mL/min Estimated GFR (MDRD) (>60) Glucose (74-106) mg/dL Lactic Acid 1.9 (0.4-2.0) mmol/L Calcium (8.5-10.1) mg/dL Phosphorus (2.5-4.9) mg/dL Magnesium (1.8-2.4) mg/dL Total Bilirubin (0.2-1.0) mg/dL AST (15-37) U/L ALT (12-78) U/L Alkaline Phosphatase (46-116) U/L NT-Pro-B Natriuret Pep (5-450) pg/mL Total Protein (6.4-8.2) g/dL Albumin (3.4-5.0) g/dL Globulin (2.3-3.5) g/dL Albumin/Globulin Ratio (1.2-2.2) Blood Type Gel Antibody Screen Crossmatch 02/24/18 Range/Units 05:50 WBC (4.5-11.0) K/uL RBC (3.30-5.50) M/uL Hgb (12.0-15.0) g/dL Hct (36.0-48.0) % MCV (80-98) fL MCH (27-31) pg MCHC (32-36) % Plt Count (150-400) K/uL Puncture Site ABG pH (7.350-7.450) ABG pCO2 (35.0-42.0) mmHg ABG pO2 (75.0-100.0) mmHg ABG HCO3 (22.0-26.0) mmol/L ABG Total CO2 (21.0-25.0) mmol/L ABG O2 Saturation (95.0-98.0) % ABG O2 Content (15.0-23.0) %vol ABG Base Excess mm/L ABG Hemoglobin (12.0-16.0) g/dL ABG Oxyhemoglobin % ABG Carboxyhemoglobin (0.0-1.6) % ABG Methemoglobin % Jose Manuel Test O2 Delivery Device Oxygen Flow Rate L Sodium 137 L (140-148) mmol/L Potassium 3.3 L (3.6-5.2) mmol/L Chloride 106 (100-108) mmol/L Carbon Dioxide 23 (21-32) mmol/L Anion Gap 11.3 (5.0-14.0) mmol/L BUN 37 H (7-18) mg/dL Creatinine 1.4 H (0.6-1.0) mg/dL Est Cr Clr Drug Dosing 22.25 mL/min Estimated GFR (MDRD) 36 L (>60) Glucose 98 (74-106) mg/dL Lactic Acid (0.4-2.0) mmol/L Calcium 7.0 L (8.5-10.1) mg/dL Phosphorus 2.9 (2.5-4.9) mg/dL Magnesium 2.0 D (1.8-2.4) mg/dL Total Bilirubin 0.4 (0.2-1.0) mg/dL AST 296 H D (15-37) U/L ALT 123 H (12-78) U/L Alkaline Phosphatase 143 H (46-116) U/L NT-Pro-B Natriuret Pep 3187 H (5-450) pg/mL Total Protein 3.0 L (6.4-8.2) g/dL Albumin 0.7 L (3.4-5.0) g/dL Globulin 2.3 (2.3-3.5) g/dL Albumin/Globulin Ratio 0.3 L (1.2-2.2) Blood Type Gel Antibody Screen Crossmatch Kash Results Last 24 Hours: Microbiology 02/22/18 05:54 Gram Stain - Final Abdomen - Abscess Wound Culture - Preliminary Enterococcus Faecalis Yeast Isolated Staphylococcus Coagulase Neg Anaerobic Culture - Preliminary NO GROWTH AFTER 2 DAYS Med Orders - Current: Current Medications Albuterol/Ipratropium (Duoneb 3.0-0.5 Mg/3 Ml) 3 ml INH ASDIRECTED PRN PRN Reason: RESP Last Admin: 02/17/18 18:57 Dose: 3 ml Albuterol/Ipratropium (Duoneb 3.0-0.5 Mg/3 Ml) 3 ml INH QIDRT [facility] Last Admin: 02/24/18 11:27 Dose: 3 ml Budesonide (Pulmicort) 0.5 mg INH BIDRT [facility] Last Admin: 02/24/18 07:59 Dose: 0.5 mg Dextrose (Glutose 15) 15 gm PO ASDIRECTED PRN PRN Reason: HYPOGLYCEMIA Dextrose/Water (Dextrose 50% In Water) 50 ml IVPUSH ASDIRECTED PRN PRN Reason: HYPOGLYCEMIA Fentanyl (Duragesic) 12 mcg TRDERM Q72H [facility] Last Admin: 02/22/18 10:04 Dose: Not Given Glucagon (Glucagen) 1 mg IM ASDIRECTED PRN PRN Reason: HYPOGLYCEMIA Hydromorphone HCl (Dilaudid Animal Physiologist 15 Mg In Ns 30 Ml) 15 mg IV ASDIRECTED [facility]; Protocol Last Admin: 02/22/18 15:09 Dose: 15 mg Propofol (Diprivan 100 Ml) 100 mls @ 1.46 mls/hr IV TITRATE [facility]; Protocol Last Admin: 02/24/18 01:41 Dose: 5 mcg/kg/min, 1.46 mls/hr Lactated Ringer's (Ringers, Lactated) 1,000 mls @ 125 mls/hr IV ASDIRECTED [facility] Last Admin: 02/24/18 10:15 Dose: 125 mls/hr Meropenem 1 gm/ Sodium (Chloride) 50 mls @ 100 mls/hr IV Q12H [facility] Last Admin: 02/24/18 04:58 Dose: 100 mls/hr Norepinephrine Bitartrate 8 mg (/ Dextrose/Water) 500 mls @ 7.5 mls/hr IV TITRATE [facility]; Protocol Last Titration: 02/24/18 08:50 Dose: 0 mcg/min, 0 mls/hr Insulin Human Regular 100 unit (/ Sodium Chloride) 101 mls @ 0.5 mls/hr IV TITRATE [facility]; Protocol Last Titration: 02/24/18 07:49 Dose: 0 units/hr, 0 mls/hr Albumin Human (Albumin 25%) 25 gm in 100 mls @ 25 mls/hr IV DAILY [facility] Stop: 02/27/18 12:59 Last Admin: 02/24/18 09:19 Dose: 25 mls/hr Albumin Human (Albumin 25%) 25 gm in 100 mls @ 25 mls/hr IV Q24H [facility] Stop: 02/27/18 16:59 Potassium Phosphate 22.5 mmole (/ Sodium Chloride) 107.5 mls @ 35 mls/hr IV Q3H [facility] Stop: 02/24/18 15:59 Last Admin: 02/24/18 10:51 Dose: 35 mls/hr Fluconazole/Sodium Chloride (200 mg/ Premix) 100 mls @ 100 mls/hr IV Q24H [facility] Last Admin: 02/24/18 10:11 Dose: 100 mls/hr Vancomycin HCl 1 gm/ Sodium (Chloride) 250 mls @ 167 mls/hr IV Q24H [facility] Last Admin: 02/24/18 11:05 Dose: 167 mls/hr Dextrose/Lactated Ringer's (Dextrose 5%-Lactated Ringers) 1,000 mls @ 50 mls/ hr IV ASDIRECTED [facility] Insulin Detemir (Levemir) 10 unit SUBCUT Q12H [facility] Last Admin: 02/24/18 06:11 Dose: 10 units Naloxone HCl (Narcan) 0.1 mg IV ASDIRECTED PRN PRN Reason: decreased respiratory rate Fentanyl Patch Check 1 each TOP BID [facility] Last Admin: 02/24/18 09:32 Dose: Not Given Pantoprazole Sodium (Protonix Iv) 40 mg IV Q24H [facility] Last Admin: 02/23/18 13:22 Dose: 40 mg Vancomycin HCl (Vancomycin) 1 gm IV .PHARMACY TO DOSE [facility] Stop: 02/24/18 12:00 Discontinued Medications Acetaminophen (Tylenol Extra Strength) 1,000 mg PO ONETIME ONE Stop: 02/14/18 08:16 Last Admin: 02/14/18 08:31 Dose: 1,000 mg Acetaminophen (Tylenol) 650 mg PO Q6H [facility] Last Admin: 02/22/18 01:34 Dose: 650 mg Albuterol/Ipratropium (Duoneb 3.0-0.5 Mg/3 Ml) 3 ml NEB ONETIME ONE Stop: 02/14/18 09:46 Last Admin: 02/14/18 12:32 Dose: 3 ml Allopurinol (Zyloprim) 150 mg PO DAILY [facility] Last Admin: 02/21/18 08:06 Dose: 150 mg Alvimopan (Entereg) 12 mg PO ONETIME ONE Stop: 02/14/18 08:16 Last Admin: 02/14/18 08:31 Dose: 12 mg Alvimopan (Entereg) 12 mg PO BID [facility] Stop: 02/21/18 09:01 Last Admin: 02/21/18 08:05 Dose: 12 mg Aspirin (Halfprin) 81 mg PO DAILY [facility] Last Admin: 02/21/18 08:06 Dose: 81 mg Aztreonam (Azactam) Confirm Administered Dose 1 gm .ROUTE .STK-MED ONE Stop: 02/22/18 06:21 Last Admin: 02/22/18 06:20 Dose: 2 gm Aztreonam (Azactam) Confirm Administered Dose 1 gm .ROUTE .STK-MED ONE Stop: 02/22/18 06:21 Bisacodyl (Dulcolax) 10 mg PO BID [facility] Last Admin: 02/21/18 20:54 Dose: 10 mg Bisacodyl (Dulcolax) 10 mg RECTAL TID [facility] Last Admin: 02/21/18 21:01 Dose: 10 mg Bisacodyl (Dulcolax) 10 mg RECTAL ONETIME ONE Stop: 02/21/18 10:01 Last Admin: 02/21/18 09:37 Dose: Not Given Bupivacaine HCl (Marcaine 0.5%) Confirm Administered Dose 50 ml .ROUTE .STK-MED ONE Stop: 02/16/18 06:45 Last Admin: 02/16/18 07:44 Dose: 10 ml Carvedilol (Coreg) 3.125 mg PO BIDMEALS [facility] Last Admin: 02/21/18 17:39 Dose: 3.125 mg Cefoxitin Sodium (Mefoxin) Confirm Administered Dose 2 gm .ROUTE .STK-MED ONE Stop: 02/14/18 08:44 Ropivacaine 25 ml/Dexamethasone 8 mg/Epinephrine HCl 0.4 mg/ Sodium Chloride 52.6 ml 0 ml NERVRT ASDIRECTED [facility] Neomycin/Polymyxin 1 ml/ (Sodium Chloride 500 ml) 0 ml IRR ONETIME ONE Stop: 02/14/18 08:16 Last Admin: 02/14/18 08:35 Dose: 750 irr Ropivacaine 25 ml/Dexamethasone 8 mg/Epinephrine HCl 0.4 mg/ Sodium Chloride 52.6 ml 0 ml NERVRT ASDIRECTED [facility] Last Admin: 02/16/18 07:59 Dose: 80 syringe Dexamethasone (Dexamethasone) Confirm Administered Dose 4 mg .ROUTE .STK-MED ONE Stop: 02/14/18 09:36 Dexamethasone (Dexamethasone) Confirm Administered Dose 4 mg .ROUTE .STK-MED ONE Stop: 02/22/18 04:44 Diphenhydramine HCl (Benadryl) 25 mg IVPUSH Q6H PRN PRN Reason: Itching Last Admin: 02/14/18 15:58 Dose: 25 mg Ephedrine Sulfate (Ephedrine Sulfate) Confirm Administered Dose 50 mg .ROUTE .STK-MED ONE Stop: 02/14/18 13:50 Ephedrine Sulfate (Ephedrine Sulfate) Confirm Administered Dose 50 mg .ROUTE .STK-MED ONE Stop: 02/22/18 05:33 Erythromycin Ethylsuccinate (Eryped 400) 250 mg NGTUBE Q6H [facility] Last Admin: 02/22/18 04:26 Dose: Not Given Fentanyl (Sublimaze) Confirm Administered Dose 250 mcg .ROUTE .STK-MED ONE Stop: 02/14/18 09:36 Fentanyl (Sublimaze) Confirm Administered Dose 100 mcg .ROUTE .STK-MED ONE Stop: 02/16/18 07:10 Fentanyl (Sublimaze) Confirm Administered Dose 250 mcg .ROUTE .STK-MED ONE Stop: 02/22/18 04:44 Fentanyl (Duragesic) Confirm Administered Dose 12 mcg .ROUTE .STK-MED ONE Stop: 02/22/18 05:42 Last Admin: 02/22/18 05:51 Dose: 12 mcg Fentanyl (Sublimaze) Confirm Administered Dose 100 mcg .ROUTE .STK-MED ONE Stop: 02/23/18 07:51 Furosemide (Lasix) 40 mg PO DAILY [facility] Last Admin: 02/18/18 09:45 Dose: 40 mg Furosemide (Lasix) 20 mg IVPUSH ONETIME STA Stop: 02/17/18 20:03 Last Admin: 02/17/18 20:30 Dose: 20 mg Furosemide (Lasix) 40 mg IVPUSH NOW ONE Stop: 02/17/18 21:33 Last Admin: 02/17/18 21:53 Dose: 40 mg Furosemide (Lasix) 20 mg IVPUSH NOW ONE Stop: 02/21/18 10:01 Last Admin: 02/21/18 09:50 Dose: 20 mg Furosemide (Lasix) 20 mg IV NOW ONE Stop: 02/22/18 09:01 Glucagon (Glucagen) Confirm Administered Dose 1 mg .ROUTE .STK-MED ONE Stop: 02/14/18 14:26 Glycopyrrolate (Robinul) Confirm Administered Dose 1 mg .ROUTE .STK-MED ONE Stop: 02/14/18 09:36 Glycopyrrolate (Robinul) Confirm Administered Dose 1 mg .ROUTE .STK-MED ONE Stop: 02/22/18 04:44 Heparin Sodium (Porcine) (Heparin Lock Flush 100 Units/Ml) Confirm Administered Dose 500 units .ROUTE .STK-MED ONE Stop: 02/22/18 06:05 Last Admin: 02/22/18 08:30 Dose: 500 units Heparin Sodium (Porcine) (Heparin Sodium) Confirm Administered Dose 5,000 units .ROUTE .STK-MED ONE Stop: 02/22/18 07:34 Heparin Sodium (Porcine) (Heparin Sodium) Confirm Administered Dose 5,000 units .ROUTE .STK-MED ONE Stop: 02/22/18 09:11 Last Admin: 02/22/18 10:43 Dose: Not Given Hydromorphone HCl (Dilaudid Animal Physiologist 15 Mg In Ns 30 Ml) 0 mg IV ASDIRECTED PRN; Protocol PRN Reason: PRIVATE DUTY RN PAIN CONTROL Last Admin: 02/19/18 06:32 Dose: 15 mg Hydromorphone HCl (Dilaudid Animal Physiologist 15 Mg In Ns 30 Ml) Confirm Administered Dose 15 mg IV .STK-MED ONE Stop: 02/17/18 10:18 Last Admin: 02/17/18 10:31 Dose: Not Given Hydroxyzine HCl (Vistaril) 0 mg IM Q4H PRN PRN Reason: PAIN Last Admin: 02/22/18 01:27 Dose: 75 mg Hydroxyzine HCl (Vistaril) 75 mg IM ONETIME ONE Stop: 02/17/18 11:01 Last Admin: 02/17/18 11:00 Dose: 75 mg Dextrose/Lactated Ringer's (Dextrose 5%-Lactated Ringers) 1,000 mls @ 100 mls/ hr IV ASDIRECTED [facility] Last Admin: 02/14/18 12:44 Dose: 100 mls/hr Meropenem 500 mg/ Sodium (Chloride) 50 mls @ 100 mls/hr IV ONETIME ONE Stop: 02/14/18 10:14 Last Admin: 02/14/18 12:59 Dose: 100 mls/hr Fentanyl 2,500 mcg/ Sodium (Chloride) 250 mls @ 0 mls/hr EPIDUR TITRATE [facility]; Protocol Fentanyl Citrate 2,500 mcg/ (Sodium Chloride) 250 mls @ 0 mls/hr EPIDUR TITRATE [facility]; Protocol Last Admin: 02/15/18 15:05 Dose: 8 mls/hr, 8 mls/hr Lactated Ringer's (Ringers, Lactated) Confirm Administered Dose 1,000 mls @ as directed .ROUTE .STK-MED ONE Stop: 02/14/18 14:38 Dextrose/Lactated Ringer's (Dextrose 5%-Lactated Ringers) 1,000 mls @ 100 mls/ hr IV ASDIRECTED [facility] Dextrose/Lactated Ringer's (Dextrose 5%-Lactated Ringers) 1,000 mls @ 150 mls/ hr IV ASDIRECTED [facility] Last Admin: 02/15/18 02:48 Dose: 150 mls/hr Cefoxitin Sodium 2 gm/ Sodium (Chloride) 50 mls @ 100 mls/hr IV Q6H [facility] Last Admin: 02/17/18 08:48 Dose: 100 mls/hr Potassium Chloride/Dextrose/Sod Cl (D5 1/2 Ns W/ 20 Meq/L Kcl) 1,000 mls @ 80 mls/hr IV ASDIRECTED [facility] Last Admin: 02/15/18 09:37 Dose: 80 mls/hr Naloxone HCl 0.4 mg/ Potassium (Chloride/Dextrose/Sod Cl) 1,001 mls @ 80.08 mls /hr IV ASDIRECTED [facility] Last Admin: 02/16/18 04:38 Dose: 80.08 mls/hr Fentanyl Citrate 2,500 mcg/ (Sodium Chloride) 250 mls @ 4 mls/hr EPIDUR TITRATE [facility]; Protocol Last Admin: 02/15/18 22:56 Dose: 4 ml/hr, 4 mls/hr Potassium Chloride/Dextrose/Sod Cl (D5 1/2 Ns W/ 20 Meq/L Kcl) 1,000 mls @ 40 mls/hr IV ASDIRECTED [facility] Last Admin: 02/17/18 10:12 Dose: 100 mls/hr Potassium Phosphate 30 mmole/ (Sodium Chloride) 160 mls @ 54 mls/hr IV Q3H [facility] Stop: 02/17/18 16:58 Last Admin: 02/17/18 16:49 Dose: 54 mls/hr Dextrose/Lactated Ringer's (Dextrose 5%-Lactated Ringers) 1,000 mls @ 100 mls/ hr IV ASDIRECTED [facility] Last Admin: 02/19/18 08:52 Dose: 100 mls/hr Lactated Ringer's (Ringers, Lactated) 1,000 mls @ 250 mls/hr IV ASDIRECTED [facility] Stop: 02/18/18 14:31 Last Admin: 02/18/18 11:28 Dose: 250 mls/hr Acetaminophen 1,000 mg/ Premix 100 mls @ 400 mls/hr IV NOW ONE Stop: 02/18/18 11:16 Last Admin: 02/18/18 11:33 Dose: Not Given Dextrose/Lactated Ringer's (Dextrose 5%-Lactated Ringers) 1,000 mls @ 75 mls/ hr IV ASDIRECTED [facility] Last Admin: 02/20/18 23:39 Dose: 75 mls/hr Potassium Phosphate 22.5 mmole (/ Sodium Chloride) 257.5 mls @ 86 mls/hr IV Q3H [facility] Stop: 02/21/18 15:59 Last Admin: 02/21/18 12:55 Dose: 86 mls/hr Dextrose/Lactated Ringer's (Dextrose 5%-Lactated Ringers) 1,000 mls @ 50 mls/ hr IV ASDIRECTED [facility] Last Admin: 02/21/18 16:35 Dose: 50 mls/hr Meropenem 500 mg/ Sodium (Chloride) 50 mls @ 100 mls/hr IV ONETIME ONE Stop: 02/22/18 04:48 Last Admin: 02/22/18 05:30 Dose: 100 mls/hr Lactated Ringer's (Ringers, Lactated) Confirm Administered Dose 1,000 mls @ as directed .ROUTE .STK-MED ONE Stop: 02/22/18 05:19 Sodium Chloride (Normal Saline) Confirm Administered Dose 250 mls @ as directed .ROUTE .STK-MED ONE Stop: 02/22/18 06:14 Norepinephrine Bitartrate 4 mg (/ Dextrose/Water) 250 mls @ 7.5 mls/hr IV TITRATE [facility]; Protocol Last Titration: 02/22/18 10:29 Dose: 11 mcg/min, 41.25 mls/hr Lactated Ringer's (Ringers, Lactated) Confirm Administered Dose 1,000 mls @ as directed .ROUTE .STK-MED ONE Stop: 02/22/18 07:12 Dextrose/Lactated Ringer's (Dextrose 5%-Lactated Ringers) 1,000 mls @ 100 mls/ hr IV ASDIRECTED [facility] Last Admin: 02/24/18 10:13 Dose: 100 mls/hr Meropenem 500 mg/ Sodium (Chloride) 50 mls @ 100 mls/hr IV Q6H [facility] Last Admin: 02/22/18 10:31 Dose: 100 mls/hr Aztreonam/Dextrose 1 gm/ (Premix) 50 mls @ 100 mls/hr IV Q8H [facility] Last Admin: 02/24/18 01:31 Dose: 100 mls/hr Lactated Ringer's (Ringers, Lactated) 1,000 mls @ 999 mls/hr IV .BOLUS ONE Stop: 02/22/18 11:00 Last Admin: 02/22/18 10:00 Dose: 999 mls/hr Lactated Ringer's (Ringers, Lactated) 750 mls @ 999 mls/hr IV ONETIME ONE Stop: 02/22/18 12:00 Last Admin: 02/22/18 11:15 Dose: 999 mls/hr Norepinephrine Bitartrate 4 mg (/ Dextrose/Water) 250 mls @ 7.5 mls/hr IV TITRATE [facility]; Protocol Stop: 02/22/18 17:30 Last Titration: 02/22/18 17:02 Dose: 12 mcg/min, 45 mls/hr Lactated Ringer's (Ringers, Lactated) 1,000 mls @ 999 mls/hr IV ASDIRECTED ONE Stop: 02/22/18 14:30 Last Admin: 02/22/18 13:30 Dose: 999 mls/hr Lactated Ringer's (Ringers, Lactated) 1,000 mls @ 500 mls/hr IV ONETIME ONE Stop: 02/22/18 16:29 Last Admin: 02/22/18 14:19 Dose: 500 mls/hr Vasopressin 100 units/ (Dextrose/Water) 255 mls @ 1.53 mls/hr IV TITRATE [facility]; Protocol Vasopressin 100 units/ (Dextrose/Water) 255 mls @ 1.53 mls/hr IV TITRATE [facility]; Protocol Last Titration: 02/22/18 15:57 Dose: 0.02 units/min, 3.06 mls/hr Lactated Ringer's (Ringers, Lactated) 1,000 mls @ 250 mls/hr IV ONETIME ONE Stop: 02/22/18 20:29 Last Infusion: 02/22/18 20:04 Dose: 125 mls/hr Magnesium Sulfate 2 gm/ Premix 50 mls @ 25 mls/hr IV Q6H [facility] Stop: 02/23/18 17:29 Last Admin: 02/23/18 14:31 Dose: 25 mls/hr Vasopressin 40 units/ Dextrose (/Water) 100 mls @ 1.5 mls/hr IV TITRATE [facility]; Protocol Last Titration: 02/23/18 17:02 Dose: 0 units/min, 0 mls/hr Ibuprofen (Motrin) 400 mg PO Q6H ANGELA Last Admin: 02/17/18 08:22 Dose: 400 mg Insulin Aspart (Novolog) Confirm Administered Dose 300 unit .ROUTE .STK-MED ONE Stop: 02/23/18 06:25 Last Admin: 02/23/18 06:43 Dose: 10 units Insulin Aspart (Novolog) 0 unit SUBCUT Q6H PRN; Protocol PRN Reason: MEDIUM CORRECTIONAL DOSE Last Admin: 02/23/18 12:17 Dose: 12 units Insulin Detemir (Levemir) Confirm Administered Dose 300 unit .ROUTE .STK-MED ONE Stop: 02/23/18 06:09 Last Admin: 02/23/18 06:43 Dose: 10 units Isosorbide Mononitrate (Imdur) 30 mg PO DAILY [facility] Last Admin: 02/21/18 08:06 Dose: 30 mg Ketamine HCl (Ketalar) 25 mg IV ASDIRECTED [facility] Levothyroxine Sodium (Levothyroxine) 75 mcg PO ACBREAKFAST [facility] Last Admin: 02/21/18 07:46 Dose: 75 mcg Lidocaine HCl (Xylocaine-Mpf 1%) Confirm Administered Dose 5 ml .ROUTE .STK-MED ONE Stop: 02/14/18 12:41 Last Admin: 02/14/18 16:48 Dose: Not Given Lidocaine HCl (Xylocaine-Mpf 1%) 0.1 ml INJECT ONETIME ONE Stop: 02/14/18 12:43 Last Admin: 02/14/18 16:48 Dose: Not Given Lidocaine/Epinephrine (Xylocaine 1% With Epinephrine 1:100,000) Confirm Administered Dose 50 ml .ROUTE .STK-MED ONE Stop: 02/16/18 06:45 Last Admin: 02/16/18 07:44 Dose: 10 ml Magnesium Hydroxide (Milk Of Magnesia) 30 ml PO BID [facility] Stop: 02/16/18 21:01 Last Admin: 02/16/18 20:18 Dose: 30 ml Magnesium Hydroxide (Milk Of Magnesia) 30 ml PO ASDIRECTED PRN PRN Reason: * Melatonin (Melatonin) 9 mg PO BEDTIME PRN PRN Reason: Insomnia Last Admin: 02/22/18 00:39 Dose: 9 mg Meperidine HCl (Demerol) 75 mg IM ONETIME ONE Stop: 02/17/18 11:01 Last Admin: 02/17/18 11:00 Dose: 75 mg Meropenem (Merrem) Confirm Administered Dose 500 mg .ROUTE .STK-MED ONE Stop: 02/14/18 08:44 Last Admin: 02/14/18 14:30 Dose: 500 mg Meropenem (Merrem) Confirm Administered Dose 500 mg .ROUTE .STK-MED ONE Stop: 02/16/18 06:45 Last Admin: 02/16/18 07:49 Dose: 500 mg Meropenem (Merrem) Confirm Administered Dose 500 mg .ROUTE .STK-MED ONE Stop: 02/22/18 05:07 Meropenem (Merrem) Confirm Administered Dose 1,500 mg .ROUTE .STK-MED ONE Stop: 02/22/18 05:51 Meropenem (Merrem) Confirm Administered Dose 500 mg .ROUTE .STK-MED ONE Stop: 02/22/18 06:05 Last Admin: 02/22/18 06:00 Dose: 3,500 mg Meropenem (Merrem) Confirm Administered Dose 1,000 mg .ROUTE .STK-MED ONE Stop: 02/22/18 06:40 Meropenem (Merrem) 1,000 mg IRR ONETIME ONE Stop: 02/22/18 07:31 Last Admin: 02/22/18 07:30 Dose: 1,000 mg Meropenem (Merrem) Confirm Administered Dose 1,000 mg .ROUTE .STK-MED ONE Stop: 02/23/18 06:39 Last Admin: 02/23/18 10:18 Dose: 1,500 mg Methylprednisolone Sodium Succinate (Solu-Medrol) 40 mg IVPUSH Q12H [facility] Last Admin: 02/22/18 01:34 Dose: 40 mg Metoclopramide HCl (Reglan) 10 mg IVPUSH Q8H ANGELA Last Admin: 02/22/18 01:34 Dose: 10 mg Naloxone HCl (Narcan) 0.1 mg IVPUSH Q5M PRN PRN Reason: RESP RATE LESS THAN 6/MINUTE Last Admin: 02/15/18 15:23 Dose: 0.1 mg Neostigmine Methylsulfate (Neostigmine) Confirm Administered Dose 5 mg .ROUTE .STK-MED ONE Stop: 02/14/18 09:36 Neostigmine Methylsulfate (Neostigmine) Confirm Administered Dose 5 mg .ROUTE .STK-MED ONE Stop: 02/22/18 04:44 Nitroglycerin (Nitrostat) 0.4 mg SL ASDIRECTED PRN PRN Reason: CHEST PAIN Ondansetron HCl (Zofran) Confirm Administered Dose 4 mg .ROUTE .STK-MED ONE Stop: 02/14/18 09:36 Ondansetron HCl (Zofran) 4 mg IVPUSH Q4H PRN PRN Reason: NAUSEA Last Admin: 02/22/18 00:43 Dose: 4 mg Ondansetron HCl (Zofran) Confirm Administered Dose 4 mg .ROUTE .STK-MED ONE Stop: 02/22/18 04:44 Pantoprazole Sodium (Protonix Iv) 40 mg IV Q24H [facility] Last Admin: 02/16/18 17:44 Dose: 40 mg Pantoprazole Sodium (Protonix) 40 mg PO ACBREAKFAST [facility] Last Admin: 02/22/18 10:05 Dose: Not Given Trans-Derm Scop (Patch Removal) 0 each TOP ONETIME ONE Stop: 02/16/18 14:01 Last Admin: 02/16/18 15:05 Dose: Not Given Phenylephrine HCl (Manuel-Synephrine) Confirm Administered Dose 10 mg .ROUTE .STK- MED ONE Stop: 02/22/18 05:40 Prednisone (Prednisone) 2.5 mg PO DAILY [facility] Last Admin: 02/18/18 09:45 Dose: 2.5 mg Prednisone (Prednisone) 10 mg PO DAILY [facility] Last Admin: 02/18/18 11:38 Dose: 10 mg Propofol (Diprivan 20 Ml) Confirm Administered Dose 200 mg .ROUTE .STK-MED ONE Stop: 02/14/18 09:36 Propofol (Diprivan 20 Ml) Confirm Administered Dose 200 mg .ROUTE .STK-MED ONE Stop: 02/16/18 07:10 Propofol (Diprivan 20 Ml) Confirm Administered Dose 200 mg .ROUTE .STK-MED ONE Stop: 02/22/18 04:44 Propofol (Diprivan 20 Ml) Confirm Administered Dose 200 mg .ROUTE .STK-MED ONE Stop: 02/23/18 06:59 Rocuronium [place] (Zemuron) Confirm Administered Dose 50 mg .ROUTE .STK-MED ONE Stop: 02/14/18 09:36 Rocuronium [place] (Zemuron) Confirm Administered Dose 50 mg .ROUTE .STK-MED ONE Stop: 02/22/18 04:44 Rocuronium [place] (Zemuron) Confirm Administered Dose 50 mg .ROUTE .STK-MED ONE Stop: 02/23/18 06:59 Scopolamine (Transderm-Scop) 1.5 mg TOP ONETIME ONE Stop: 02/14/18 08:16 Last Admin: 02/14/18 08:32 Dose: 1.5 mg Senna (Senna) 8.6 mg PO BEDTIME ANGELA Last Admin: 02/15/18 21:24 Dose: 8.6 mg Senna (Senna) 17.2 mg PO BEDTIME ANGELA Last Admin: 02/21/18 20:54 Dose: 17.2 mg Succinylcholine Chloride (Quelicin) Confirm Administered Dose 200 mg .ROUTE .STK -MED ONE Stop: 02/14/18 09:36 Succinylcholine Chloride (Quelicin) Confirm Administered Dose 200 mg .ROUTE .STK -MED ONE Stop: 02/22/18 04:44 Theophylline (Pablito-24) 400 mg PO DAILY [facility] Last Admin: 02/19/18 09:31 Dose: 400 mg Tramadol HCl (Ultram) 50 mg PO Q6H PRN PRN Reason: PAIN Last Admin: 02/17/18 04:00 Dose: 50 mg - Exam Quality Assessment: Supplemental Oxygen (Intubation with mechanical ventilation) , Central Line/PICC, Urine Catheter, DVT Prophylaxis Lungs: Decreased Breath Sounds. No: Rales, Rhonchi, Rub, Wheezing Cardiovascular: No Murmurs, Irregular Rhythm, Tachycardia GI/Abdominal Exam: Soft, Non-Tender, No Organomegaly, No Distention Extremities: Non-Tender, Pedal Edema Skin: Warm, Dry, Intact Consult PN Assessment/Plan Procedures: Procedures AGENT NOS ASSAY W/OPTIC (01/19/18) AIRWAY INHALATION TREATMENT (01/19/18) ASSAY OF AMYLASE (01/02/18) ASSAY OF LIPASE (01/19/18) ASSAY OF MAGNESIUM (01/19/18) ASSAY OF PHOSPHORUS (01/19/18) ASSAY OF SERUM POTASSIUM (01/19/18) ASSAY THYROID STIM HORMONE (01/19/18) C DIFF AMPLIFIED PROBE (01/19/18) C-REACTIVE PROTEIN (01/19/18) CARDIOVASCULAR STRESS TEST (04/12/16) CHEST WALL MANIPULATION (12/19/17) CHEST WALL MANIPULATION (12/19/17) COMP SCREEN MAMMOGRAM ADD-ON (04/05/15) COMPLETE CBC AUTOMATED (01/19/18) COMPLETE CBC W/AUTO DIFF WBC (01/19/18) COMPREHEN METABOLIC PANEL (01/19/18) CT ABD & PELV W/CONTRAST (01/19/18) CT ABD & PELVIS W/O CONTRAST (01/02/18) CULTURE AEROBIC IDENTIFY (12/19/17) CULTURE OTHR SPECIMN AEROBIC (12/19/17) CULTURE SCREEN ONLY (10/09/17) EGD BIOPSY SINGLE/MULTIPLE (10/09/17) EMERGENCY DEPT VISIT (01/19/18) EMERGENCY DEPT VISIT (01/19/18) HT MUSCLE IMAGE SPECT MULT (04/12/16) HYDRATE IV INFUSION ADD-ON (01/19/18) LEUKOCYTE ASSESSMENT FECAL (01/02/18) MANUAL THERAPY 1/> REGIONS (02/12/18) METABOLIC PANEL TOTAL CA (01/19/18) NEUROMUSCULAR REEDUCATION (12/17/17) OVA AND PARASITES SMEARS (01/19/18) PROTHROMBIN TIME (01/19/18) PT EVAL MOD COMPLEX 30 MIN (08/13/17) ROUTINE VENIPUNCTURE (01/19/18) SMEAR COMPLEX STAIN (01/19/18) SMEAR GRAM STAIN (12/19/17) STOOL CULTR AEROBIC BACT EA (01/19/18) THER/PROPH/DIAG INJ IV PUSH (01/19/18) THERAPEUTIC EXERCISES (12/17/17) TISSUE EXAM BY PATHOLOGIST (10/09/17) TX/PRO/DX INJ SAME DRUG ELECTRICAL PROSPECTING SUPERVISOR (01/02/18) ULTRASOUND THERAPY (02/12/18) X-RAY EXAM ABDOMEN 2 VIEWS (01/02/18) X-RAY EXAM OF SHOULDER (07/26/17) Problem List Initiated/Reviewed/Updated: Yes My Orders Last 24 Hours: My Active Orders 02/23/18 12:19 Communication Order [RC] ASDIRECTED Notify Provider [RC] PRN 02/23/18 12:30 Insulin Regular, Human [NovoLIN R] 100 unit Sodium Chloride 0.9% [Normal Saline] 100 ml IV TITRATE 02/24/18 09:30 Fluconazole/Normal Saline [Diflucan in NS 200 MG/100 ML] 200 mg Premix Bag 1 bag IV Q24H 02/24/18 10:00 Vancomycin 1 gm IV .PHARMACY TO DOSE 02/24/18 11:00 Vancomycin 1 gm Sodium Chloride 0.9% [Normal Saline] 250 ml IV Q24H 02/24/18 11:30 Dextrose 5%-Lactated Ringers 1,000 ml IV ASDIRECTED Plan: ASSESSMENT AND RECOMMENDATIONS INTRA-ABDOMINAL INFECTION WITH SEPSIS-blood pressures further stabilized over the past 24 hours, she is now off of vasopressin and norepinephrine. CVP has improved and IV fluids have been decreased. Intra-abdominal cultures growing enterococcus and yeast. -Continue current antibiotic therapy with meropenem -Discontinue as active -IV vancomycin and fluconazole -Decrease IV fluid infusions -IV norepinephrine and vasopressin to maintain mean arterial pressure of greater than 65 HYPOXIC RESPIRATORY FAILURE-respiratory status has remained stable over the past 24 hours on current ventilator settings -Sedation holiday today -Spontaneous breathing trial this morning -Continue nebulizer therapy TYPE 2 DIABETES MELLITUS -Discontinue long acting insulin -Continue intermittent use of IV insulin per protocol with regular glucometers ACUTE KIDNEY INJURY-renal function has improved over the past 24 hours with improved urine output -Continue closely monitor urine output and renal function
[2018-02-24] MEDS: Pantoprazole 40 MG Vial IV SCH (14:10)
[2018-02-25] MEDS ORDERED: 50% Dextrose in Water 50 ML Syringe IVPUSH ONE (02:20)
[2018-02-25] MEDS: Dextrose 5%-Lactated Ringers 1,000 ML IV SCH (04:37)
[2018-02-25] MEDS: fentaNYL 12 MCG/HR Transdermal Patch TRDERM SCH (06:37)
[2018-02-25] MEDS: FENTANYL PATCH CHECK TOP SCH ×2 (06:51→08:26)
[2018-02-25] MEDS: Budesonide 0.5 MG/2 ML Neb Susp INH SCH ×2 (07:03→21:00)
[2018-02-25] MEDS: Albuterol/Ipratropium 3.0-0.5 MG/3 ML Neb Soln INH SCH ×4 (07:03→21:00)
[2018-02-25] MEDS: HYDROmorphone/Normal Saline 15 MG/30 ML PCA IV SCH (08:34)
--- NOTE | 2018-02-25 08:40 | OR ---
DATE OF PROCEDURE: 02/16/2018 PREOPERATIVE DIAGNOSIS: Open abdominal incision. POSTOPERATIVE DIAGNOSIS: Open abdominal incision. OPERATIVE PROCEDURE: Delayed primary closure of open abdominal incision. ANESTHESIA: Local plus IV sedation. DIRECTOR PAYMENT: AMAURY Arreguin. INDICATION FOR PROCEDURE: The patient is 48 hours status post a sigmoid colon resection and it was felt at that point that the subcutaneous tissue would be at high risk for a wound infection if a primary closure was undertaken. Given this, the wound was packed open for a planned delayed primary closure at this time. Potential risks including bleeding and infection were reviewed, and the patient wishes to proceed. DETAILS OF PROCEDURE: The patient was taken to the operating room and after IV sedation was administered and being maintained in the 30-degree upward position to minimize aspiration risk, using ultrasound guidance, bilateral mid-abdominal and lower abdominal transversus abdominis plane blocks were placed using standard solution with continuous ultrasound guidance. Following this, the dressing was taken down. The wound was inspected and found to be clean. The area was then prepped and draped, anesthetized with 1% lidocaine mixed with Marcaine and irrigated with meropenem-containing saline solution. A 10-[place] round Kenneth-Banda drain was then placed through a stab wound inferior to the main incision, which was then closed with a running 3-0 Vicryl stitch deep and a 4-0 Vicryl subdermal stitch, and then selene for the skin. 4-0 Vicryl was then also used to attach the drain. Dressing was applied. The patient was taken to the recovery room in a satisfactory condition. Robert Pate MD /[id number]
--- NOTE | 2018-02-25 08:49 | CR ---
Chest 1V Frontal INDICATION: ensure ET tube placement COMPARISON: 02/22/2018 FINDINGS: AP portable chest. ET tube remains in place. Bilateral pleural effusions unchanged. Heart size unchanged. IJ central dior e remains in place.
--- NOTE | 2018-02-25 08:50 | PN ---
DATE OF SERVICE: 02/21/2018 The patient has been afebrile. The heart rate presently is around 60, has been generally between 90 and 107, depending on activity level. O2 saturations on 2.5 L nasal cannula is 93% range, and lungs appear to be fairly clear. Urine output has been satisfactory with balanced I and O, given measured losses. Creatinine is down to 1.1. The patient's problem remains lack of the GI tract function. It is notable that overnight her NG tube only put out around 50 mL, and she has not had any persistent nausea. She is not passing any significant gas that we can tell at this point. The plan will be to obtain an abdominal x-ray this morning. We will repeat that tomorrow. We will give her soapsuds enema this morning to see if there is something clogging up the anastomosis, and if that is not successful, we might try getting a gastrografin enema with the radiologist tomorrow. Otherwise, continue the erythromycin through the NG tube. Her potassium is somewhat low. We will give her some additional K-Phos today. I will have Physical Therapy consult the patient as well. However, she is getting up and walking with assistance fairly well. Robert Pate MD /[id number]
[2018-02-25] MEDS: Fluconazole/Normal Saline 200 MG in Premix Bag 1 BAG IV SCH (08:56)
[2018-02-25] MEDS ORDERED: fentaNYL 250 MCG/5 ML SDV ONE (09:01)
[2018-02-25] MEDS ORDERED: Rocuronium 50 MG/5 ML Vial ONE (09:01)
[2018-02-25] MEDS ORDERED: Ketorolac 60 MG/2 ML SDV ONE (09:06)
--- NOTE | 2018-02-25 09:10 | PCM.CONSN ---
- General Info Date of Service: 02/25/18 Functional Status: Reports: Urinating - Review of Systems General: Denies: Fever Systems Review Comment:: There were no acute events overnight. She is now off vasopressors and blood pressure has been stable. She has been off of sedation since yesterday morning but is still very lethargic and does not follow commands. Ventilator support is minimal at this time and peak inspiratory pressures are around 16. FiO2 is currently at 35%. Urine output has been adequate. Kidney function has remained stable to improved. Overnight she did develop a change in the color of ESME drainage and it is now a greenish brown. This is concerning for bile leak and surgery is planned for later in the day. - Patient Data Vitals - Most Recent: Last Vital Signs Temp 37.7 C 02/25/18 07:00 Pulse 122 H 02/25/18 08:06 Resp 15 02/25/18 07:43 BP 121/38 L 02/25/18 07:43 Pulse Ox 95 02/25/18 08:06 Weight - Most Recent: 46.266 kg I&O - Last 24 Hours: Intake & Output 02/24/18 02/25/18 02/25/18 22:59 06:59 14:59 Intake Total 2308 719 Output Total 1685 1090 320 Balance 623 -371 -320 Lab Results Last 24 Hours: Laboratory Results - last 24 hr 02/23/18 02/24/18 02/24/18 Range/Units 04:35 17:15 17:15 WBC (4.5-11.0) K/uL RBC (3.30-5.50) M/uL Hgb (12.0-15.0) g/dL Hct (36.0-48.0) % MCV (80-98) fL MCH (27-31) pg MCHC (32-36) % Plt Count (150-400) K/uL Puncture Site A-line ABG pH 7.464 H (7.350-7.450) ABG pCO2 31.8 L (35.0-42.0) mmHg ABG pO2 65.1 L (75.0-100.0) mmHg ABG HCO3 22.5 (22.0-26.0) mmol/L ABG Total CO2 20.8 L (21.0-25.0) mmol/L ABG O2 Saturation 93.0 L (95.0-98.0) % ABG O2 Content 12.4 L (15.0-23.0) %vol ABG Base Excess -0.4 mm/L ABG Hemoglobin 9.6 L (12.0-16.0) g/dL ABG Oxyhemoglobin 91.5 % ABG Carboxyhemoglobin 0.9 (0.0-1.6) % ABG Methemoglobin 0.7 % Jose Manuel Test A-line O2 Delivery Device Ventilator Oxygen Flow Rate L Sodium (140-148) mmol/L Potassium (3.6-5.2) mmol/L Chloride (100-108) mmol/L Carbon Dioxide (21-32) mmol/L Anion Gap (5.0-14.0) mmol/L BUN (7-18) mg/dL Creatinine (0.6-1.0) mg/dL Est Cr Clr Drug Dosing mL/min Estimated GFR (MDRD) (>60) Glucose (74-106) mg/dL Lactic Acid 1.8 (0.4-2.0) mmol/L Calcium (8.5-10.1) mg/dL Phosphorus (2.5-4.9) mg/dL Magnesium (1.8-2.4) mg/dL Total Bilirubin (0.2-1.0) mg/dL AST (15-37) U/L ALT (12-78) U/L Alkaline Phosphatase (46-116) U/L NT-Pro-B Natriuret Pep (5-450) pg/mL Total Protein (6.4-8.2) g/dL Albumin (3.4-5.0) g/dL Globulin (2.3-3.5) g/dL Albumin/Globulin Ratio (1.2-2.2) Crossmatch See Detail 02/25/18 02/25/18 02/25/18 Range/Units 04:05 04:05 04:05 WBC 10.8 (4.5-11.0) K/uL RBC 3.61 (3.30-5.50) M/uL Hgb 10.1 L (12.0-15.0) g/dL Hct 30.2 L (36.0-48.0) % MCV 84 (80-98) fL MCH 28 (27-31) pg MCHC 33 (32-36) % Plt Count 19 L* (150-400) K/uL Puncture Site ABG pH (7.350-7.450) ABG pCO2 (35.0-42.0) mmHg ABG pO2 (75.0-100.0) mmHg ABG HCO3 (22.0-26.0) mmol/L ABG Total CO2 (21.0-25.0) mmol/L ABG O2 Saturation (95.0-98.0) % ABG O2 Content (15.0-23.0) %vol ABG Base Excess mm/L ABG Hemoglobin (12.0-16.0) g/dL ABG Oxyhemoglobin % ABG Carboxyhemoglobin (0.0-1.6) % ABG Methemoglobin % Jose Manuel Test O2 Delivery Device Oxygen Flow Rate L Sodium 138 L (140-148) mmol/L Potassium 3.5 L (3.6-5.2) mmol/L Chloride 106 (100-108) mmol/L Carbon Dioxide 23 (21-32) mmol/L Anion Gap 12.5 (5.0-14.0) mmol/L BUN 26 H (7-18) mg/dL Creatinine 1.1 H (0.6-1.0) mg/dL Est Cr Clr Drug Dosing 28.32 mL/min Estimated GFR (MDRD) 48 L (>60) Glucose 97 (74-106) mg/dL Lactic Acid 1.8 (0.4-2.0) mmol/L Calcium 7.0 L (8.5-10.1) mg/dL Phosphorus 3.5 (2.5-4.9) mg/dL Magnesium 1.6 L (1.8-2.4) mg/dL Total Bilirubin 1.0 D (0.2-1.0) mg/dL AST 136 H (15-37) U/L ALT 61 (12-78) U/L Alkaline Phosphatase 106 (46-116) U/L NT-Pro-B Natriuret Pep 2600 H (5-450) pg/mL Total Protein 3.6 L (6.4-8.2) g/dL Albumin 1.5 L (3.4-5.0) g/dL Globulin 2.1 L (2.3-3.5) g/dL Albumin/Globulin Ratio 0.7 L (1.2-2.2) Crossmatch 02/25/18 Range/Units 04:05 WBC (4.5-11.0) K/uL RBC (3.30-5.50) M/uL Hgb (12.0-15.0) g/dL Hct (36.0-48.0) % MCV (80-98) fL MCH (27-31) pg MCHC (32-36) % Plt Count (150-400) K/uL Puncture Site Line ABG pH 7.505 H (7.350-7.450) ABG pCO2 28.9 L (35.0-42.0) mmHg ABG pO2 84.7 (75.0-100.0) mmHg ABG HCO3 22.6 (22.0-26.0) mmol/L ABG Total CO2 20.5 L (21.0-25.0) mmol/L ABG O2 Saturation 97.1 (95.0-98.0) % ABG O2 Content 13.7 L (15.0-23.0) %vol ABG Base Excess 0.4 mm/L ABG Hemoglobin 10.2 L (12.0-16.0) g/dL ABG Oxyhemoglobin 94.7 % ABG Carboxyhemoglobin 1.8 H (0.0-1.6) % ABG Methemoglobin 0.7 % Jose Manuel Test O2 Delivery Device Ventilator Oxygen Flow Rate L Sodium (140-148) mmol/L Potassium (3.6-5.2) mmol/L Chloride (100-108) mmol/L Carbon Dioxide (21-32) mmol/L Anion Gap (5.0-14.0) mmol/L BUN (7-18) mg/dL Creatinine (0.6-1.0) mg/dL Est Cr Clr Drug Dosing mL/min Estimated GFR (MDRD) (>60) Glucose (74-106) mg/dL Lactic Acid (0.4-2.0) mmol/L Calcium (8.5-10.1) mg/dL Phosphorus (2.5-4.9) mg/dL Magnesium (1.8-2.4) mg/dL Total Bilirubin (0.2-1.0) mg/dL AST (15-37) U/L ALT (12-78) U/L Alkaline Phosphatase (46-116) U/L NT-Pro-B Natriuret Pep (5-450) pg/mL Total Protein (6.4-8.2) g/dL Albumin (3.4-5.0) g/dL Globulin (2.3-3.5) g/dL Albumin/Globulin Ratio (1.2-2.2) Crossmatch Kash Results Last 24 Hours: Microbiology 02/22/18 05:54 Gram Stain - Final Abdomen - Abscess Wound Culture - Final Enterococcus Faecalis Yeast Isolated Staphylococcus Coagulase Neg Anaerobic Culture - Final NO GROWTH AFTER 3 DAYS Med Orders - Current: Current Medications Albuterol/Ipratropium (Duoneb 3.0-0.5 Mg/3 Ml) 3 ml INH ASDIRECTED PRN PRN Reason: RESP Last Admin: 02/17/18 18:57 Dose: 3 ml Albuterol/Ipratropium (Duoneb 3.0-0.5 Mg/3 Ml) 3 ml INH QIDRT [facility] Last Admin: 02/25/18 07:03 Dose: 3 ml Budesonide (Pulmicort) 0.5 mg INH BIDRT [facility] Last Admin: 02/25/18 07:03 Dose: 0.5 mg Dextrose (Glutose 15) 15 gm PO ASDIRECTED PRN PRN Reason: HYPOGLYCEMIA Dextrose/Water (Dextrose 50% In Water) 50 ml IVPUSH ASDIRECTED PRN PRN Reason: HYPOGLYCEMIA Fentanyl (Duragesic) 12 mcg TRDERM Q72H [facility] Last Admin: 02/25/18 06:37 Dose: 12 mcg Glucagon (Glucagen) 1 mg IM ASDIRECTED PRN PRN Reason: HYPOGLYCEMIA Hydromorphone HCl (Dilaudid Principal Network Engineer 15 Mg In Ns 30 Ml) 15 mg IV ASDIRECTED ANGELA; Protocol Last Admin: 02/25/18 08:34 Dose: 15 mg Propofol (Diprivan 100 Ml) 100 mls @ 1.46 mls/hr IV TITRATE [facility]; Protocol Last Admin: 02/24/18 01:41 Dose: 5 mcg/kg/min, 1.46 mls/hr Meropenem 1 gm/ Sodium (Chloride) 50 mls @ 100 mls/hr IV Q12H [facility] Last Admin: 02/25/18 04:39 Dose: 100 mls/hr Insulin Human Regular 100 unit (/ Sodium Chloride) 101 mls @ 0.5 mls/hr IV TITRATE ANGELA; Protocol Last Titration: 02/24/18 07:49 Dose: 0 units/hr, 0 mls/hr Albumin Human (Albumin 25%) 25 gm in 100 mls @ 25 mls/hr IV DAILY [facility] Stop: 02/27/18 12:59 Last Admin: 02/25/18 08:25 Dose: 25 mls/hr Albumin Human (Albumin 25%) 25 gm in 100 mls @ 25 mls/hr IV Q24H [facility] Stop: 02/27/18 16:59 Last Admin: 02/24/18 12:46 Dose: 25 mls/hr Fluconazole/Sodium Chloride (200 mg/ Premix) 100 mls @ 100 mls/hr IV Q24H [facility] Last Admin: 02/25/18 08:56 Dose: 100 mls/hr Vancomycin HCl 1 gm/ Sodium (Chloride) 250 mls @ 167 mls/hr IV Q24H [facility] Last Admin: 02/24/18 11:05 Dose: 167 mls/hr Dextrose/Lactated Ringer's (Dextrose 5%-Lactated Ringers) 1,000 mls @ 50 mls/ hr IV ASDIRECTED [facility] Last Admin: 02/25/18 04:37 Dose: 50 mls/hr Naloxone HCl (Narcan) 0.1 mg IV ASDIRECTED PRN PRN Reason: decreased respiratory rate Fentanyl Patch Check 1 each TOP BID [facility] Last Admin: 02/25/18 08:26 Dose: Not Given Pantoprazole Sodium (Protonix Iv) 40 mg IV Q24H [facility] Last Admin: 02/24/18 14:10 Dose: 40 mg Discontinued Medications Acetaminophen (Tylenol Extra Strength) 1,000 mg PO ONETIME ONE Stop: 02/14/18 08:16 Last Admin: 02/14/18 08:31 Dose: 1,000 mg Acetaminophen (Tylenol) 650 mg PO Q6H [facility] Last Admin: 02/22/18 01:34 Dose: 650 mg Albuterol/Ipratropium (Duoneb 3.0-0.5 Mg/3 Ml) 3 ml NEB ONETIME ONE Stop: 02/14/18 09:46 Last Admin: 02/14/18 12:32 Dose: 3 ml Allopurinol (Zyloprim) 150 mg PO DAILY [facility] Last Admin: 02/21/18 08:06 Dose: 150 mg Alvimopan (Entereg) 12 mg PO ONETIME ONE Stop: 02/14/18 08:16 Last Admin: 02/14/18 08:31 Dose: 12 mg Alvimopan (Entereg) 12 mg PO BID [facility] Stop: 02/21/18 09:01 Last Admin: 02/21/18 08:05 Dose: 12 mg Aspirin (Halfprin) 81 mg PO DAILY [facility] Last Admin: 02/21/18 08:06 Dose: 81 mg Aztreonam (Azactam) Confirm Administered Dose 1 gm .ROUTE .STK-MED ONE Stop: 02/22/18 06:21 Last Admin: 02/22/18 06:20 Dose: 2 gm Aztreonam (Azactam) Confirm Administered Dose 1 gm .ROUTE .STK-MED ONE Stop: 02/22/18 06:21 Bisacodyl (Dulcolax) 10 mg PO BID [facility] Last Admin: 02/21/18 20:54 Dose: 10 mg Bisacodyl (Dulcolax) 10 mg RECTAL TID [facility] Last Admin: 02/21/18 21:01 Dose: 10 mg Bisacodyl (Dulcolax) 10 mg RECTAL ONETIME ONE Stop: 02/21/18 10:01 Last Admin: 02/21/18 09:37 Dose: Not Given Bupivacaine HCl (Marcaine 0.5%) Confirm Administered Dose 50 ml .ROUTE .STK-MED ONE Stop: 02/16/18 06:45 Last Admin: 02/16/18 07:44 Dose: 10 ml Carvedilol (Coreg) 3.125 mg PO BIDMEALS [facility] Last Admin: 02/21/18 17:39 Dose: 3.125 mg Cefoxitin Sodium (Mefoxin) Confirm Administered Dose 2 gm .ROUTE .STK-MED ONE Stop: 02/14/18 08:44 Ropivacaine 25 ml/Dexamethasone 8 mg/Epinephrine HCl 0.4 mg/ Sodium Chloride 52.6 ml 0 ml NERVRT ASDIRECTED [facility] Neomycin/Polymyxin 1 ml/ (Sodium Chloride 500 ml) 0 ml IRR ONETIME ONE Stop: 02/14/18 08:16 Last Admin: 02/14/18 08:35 Dose: 750 irr Ropivacaine 25 ml/Dexamethasone 8 mg/Epinephrine HCl 0.4 mg/ Sodium Chloride 52.6 ml 0 ml NERVRT ASDIRECTED [facility] Last Admin: 02/16/18 07:59 Dose: 80 syringe Dexamethasone (Dexamethasone) Confirm Administered Dose 4 mg .ROUTE .STK-MED ONE Stop: 02/14/18 09:36 Dexamethasone (Dexamethasone) Confirm Administered Dose 4 mg .ROUTE .STK-MED ONE Stop: 02/22/18 04:44 Dextrose/Water (Dextrose 50% In Water) 25 ml IVPUSH ONETIME ONE Stop: 02/25/18 02:21 Last Admin: 02/25/18 02:28 Dose: 25 ml Diphenhydramine HCl (Benadryl) 25 mg IVPUSH Q6H PRN PRN Reason: Itching Last Admin: 02/14/18 15:58 Dose: 25 mg Ephedrine Sulfate (Ephedrine Sulfate) Confirm Administered Dose 50 mg .ROUTE .STK-MED ONE Stop: 02/14/18 13:50 Ephedrine Sulfate (Ephedrine Sulfate) Confirm Administered Dose 50 mg .ROUTE .STK-MED ONE Stop: 02/22/18 05:33 Erythromycin Ethylsuccinate (Eryped 400) 250 mg NGTUBE Q6H [facility] Last Admin: 02/22/18 04:26 Dose: Not Given Fentanyl (Sublimaze) Confirm Administered Dose 250 mcg .ROUTE .STK-MED ONE Stop: 02/14/18 09:36 Fentanyl (Sublimaze) Confirm Administered Dose 100 mcg .ROUTE .STK-MED ONE Stop: 02/16/18 07:10 Fentanyl (Sublimaze) Confirm Administered Dose 250 mcg .ROUTE .STK-MED ONE Stop: 02/22/18 04:44 Fentanyl (Duragesic) Confirm Administered Dose 12 mcg .ROUTE .STK-MED ONE Stop: 02/22/18 05:42 Last Admin: 02/22/18 05:51 Dose: 12 mcg Fentanyl (Sublimaze) Confirm Administered Dose 100 mcg .ROUTE .STK-MED ONE Stop: 02/23/18 07:51 Fentanyl (Sublimaze) Confirm Administered Dose 250 mcg .ROUTE .STK-MED ONE Stop: 02/25/18 09:02 Furosemide (Lasix) 40 mg PO DAILY [facility] Last Admin: 02/18/18 09:45 Dose: 40 mg Furosemide (Lasix) 20 mg IVPUSH ONETIME STA Stop: 02/17/18 20:03 Last Admin: 02/17/18 20:30 Dose: 20 mg Furosemide (Lasix) 40 mg IVPUSH NOW ONE Stop: 02/17/18 21:33 Last Admin: 02/17/18 21:53 Dose: 40 mg Furosemide (Lasix) 20 mg IVPUSH NOW ONE Stop: 02/21/18 10:01 Last Admin: 02/21/18 09:50 Dose: 20 mg Furosemide (Lasix) 20 mg IV NOW ONE Stop: 02/22/18 09:01 Glucagon (Glucagen) Confirm Administered Dose 1 mg .ROUTE .STK-MED ONE Stop: 02/14/18 14:26 Glycopyrrolate (Robinul) Confirm Administered Dose 1 mg .ROUTE .STK-MED ONE Stop: 02/14/18 09:36 Glycopyrrolate (Robinul) Confirm Administered Dose 1 mg .ROUTE .STK-MED ONE Stop: 02/22/18 04:44 Heparin Sodium (Porcine) (Heparin Lock Flush 100 Units/Ml) Confirm Administered Dose 500 units .ROUTE .STK-MED ONE Stop: 02/22/18 06:05 Last Admin: 02/22/18 08:30 Dose: 500 units Heparin Sodium (Porcine) (Heparin Sodium) Confirm Administered Dose 5,000 units .ROUTE .STK-MED ONE Stop: 02/22/18 07:34 Heparin Sodium (Porcine) (Heparin Sodium) Confirm Administered Dose 5,000 units .ROUTE .STK-MED ONE Stop: 02/22/18 09:11 Last Admin: 02/22/18 10:43 Dose: Not Given Hydromorphone HCl (Dilaudid Principal Network Engineer 15 Mg In Ns 30 Ml) 0 mg IV ASDIRECTED PRN; Protocol PRN Reason: [employer] 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[employer]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 Last Admin: 02/19/18 06:32 Dose: 15 mg Hydromorphone HCl (Dilaudid Principal Network Engineer 15 Mg In Ns 30 Ml) Confirm Administered Dose 15 mg IV .STK-MED ONE Stop: 02/17/18 10:18 Last Admin: 02/17/18 10:31 Dose: Not Given Hydroxyzine HCl (Vistaril) 0 mg IM Q4H PRN PRN Reason: PAIN Last Admin: 02/22/18 01:27 Dose: 75 mg Hydroxyzine HCl (Vistaril) 75 mg IM ONETIME ONE Stop: 02/17/18 11:01 Last Admin: 02/17/18 11:00 Dose: 75 mg Dextrose/Lactated Ringer's (Dextrose 5%-Lactated Ringers) 1,000 mls @ 100 mls/ hr IV ASDIRECTED ANGELA Last Admin: 02/14/18 12:44 Dose: 100 mls/hr Meropenem 500 mg/ Sodium (Chloride) 50 mls @ 100 mls/hr IV ONETIME ONE Stop: 02/14/18 10:14 Last Admin: 02/14/18 12:59 Dose: 100 mls/hr Fentanyl 2,500 mcg/ Sodium (Chloride) 250 mls @ 0 mls/hr EPIDUR TITRATE ANGELA; Protocol Fentanyl Citrate 2,500 mcg/ (Sodium Chloride) 250 mls @ 0 mls/hr EPIDUR TITRATE ANGELA; Protocol Last Admin: 02/15/18 15:05 Dose: 8 mls/hr, 8 mls/hr Lactated Ringer's (Ringers, Lactated) Confirm Administered Dose 1,000 mls @ as directed .ROUTE .[facility] ONE Stop: 02/14/18 14:38 Dextrose/Lactated Ringer's (Dextrose 5%-Lactated Ringers) 1,000 mls @ 100 mls/ hr IV ASDIRECTED ANGELA Dextrose/Lactated Ringer's (Dextrose 5%-Lactated Ringers) 1,000 mls @ 150 mls/ hr IV ASDIRECTED ANGELA Last Admin: 02/15/18 02:48 Dose: 150 mls/hr Cefoxitin Sodium 2 gm/ Sodium (Chloride) 50 mls @ 100 mls/hr IV Q6H [facility] Last Admin: 02/17/18 08:48 Dose: 100 mls/hr Potassium Chloride/Dextrose/Sod Cl (D5 1/2 Ns W/ 20 Meq/L Kcl) 1,000 mls @ 80 mls/hr IV ASDIRECTED ANGELA Last Admin: 02/15/18 09:37 Dose: 80 mls/hr Naloxone HCl 0.4 mg/ Potassium (Chloride/Dextrose/Sod Cl) 1,001 mls @ 80.08 mls /hr IV ASDIRECTED ANGELA Last Admin: 02/16/18 04:38 Dose: 80.08 mls/hr Fentanyl Citrate 2,500 mcg/ (Sodium Chloride) 250 mls @ 4 mls/hr EPIDUR TITRATE ANGELA; Protocol Last Admin: 02/15/18 22:56 Dose: 4 ml/hr, 4 mls/hr Potassium Chloride/Dextrose/Sod Cl (D5 1/2 Ns W/ 20 Meq/L Kcl) 1,000 mls @ 40 mls/hr IV ASDIRECTED ANGELA Last Admin: 02/17/18 10:12 Dose: 100 mls/hr Potassium Phosphate 30 mmole/ (Sodium Chloride) 160 mls @ 54 mls/hr IV Q3H [facility]A Stop: 02/17/18 16:58 Last Admin: 02/17/18 16:49 Dose: 54 mls/hr Dextrose/Lactated Ringer's (Dextrose 5%-Lactated Ringers) 1,000 mls @ 100 mls/ hr IV ASDIRECTED [facility] Last Admin: 02/19/18 08:52 Dose: 100 mls/hr Lactated Ringer's (Ringers, Lactated) 1,000 mls @ 250 mls/hr IV ASDIRECTED [facility] Stop: 02/18/18 14:31 Last Admin: 02/18/18 11:28 Dose: 250 mls/hr Acetaminophen 1,000 mg/ Premix 100 mls @ 400 mls/hr IV NOW ONE Stop: 02/18/18 11:16 Last Admin: 02/18/18 11:33 Dose: Not Given Dextrose/Lactated Ringer's (Dextrose 5%-Lactated Ringers) 1,000 mls @ 75 mls/ hr IV ASDIRECTED [facility] Last Admin: 02/20/18 23:39 Dose: 75 mls/hr Potassium Phosphate 22.5 mmole (/ Sodium Chloride) 257.5 mls @ 86 mls/hr IV Q3H [facility] Stop: 02/21/18 15:59 Last Admin: 02/21/18 12:55 Dose: 86 mls/hr Dextrose/Lactated Ringer's (Dextrose 5%-Lactated Ringers) 1,000 mls @ 50 mls/ hr IV ASDIRECTED [facility] Last Admin: 02/21/18 16:35 Dose: 50 mls/hr Meropenem 500 mg/ Sodium (Chloride) 50 mls @ 100 mls/hr IV ONETIME ONE Stop: 02/22/18 04:48 Last Admin: 02/22/18 05:30 Dose: 100 mls/hr Lactated Ringer's (Ringers, Lactated) Confirm Administered Dose 1,000 mls @ as directed .ROUTE .STK-MED ONE Stop: 02/22/18 05:19 Sodium Chloride (Normal Saline) Confirm Administered Dose 250 mls @ as directed .ROUTE .STK-MED ONE Stop: 02/22/18 06:14 Norepinephrine Bitartrate 4 mg (/ Dextrose/Water) 250 mls @ 7.5 mls/hr IV TITRATE ANGELA; Protocol Last Titration: 02/22/18 10:29 Dose: 11 mcg/min, 41.25 mls/hr Lactated Ringer's (Ringers, Lactated) Confirm Administered Dose 1,000 mls @ as directed .ROUTE .K-MED ONE Stop: 02/22/18 07:12 Dextrose/Lactated Ringer's (Dextrose 5%-Lactated Ringers) 1,000 mls @ 100 mls/ hr IV ASDIRECTED ANGELA Last Admin: 02/24/18 10:13 Dose: 100 mls/hr Lactated Ringer's (Ringers, Lactated) 1,000 mls @ 125 mls/hr IV ASDIRECTED ANGELA Last Admin: 02/24/18 10:15 Dose: 125 mls/hr Meropenem 500 mg/ Sodium (Chloride) 50 mls @ 100 mls/hr IV Q6H [facility] Last Admin: 02/22/18 10:31 Dose: 100 mls/hr Aztreonam/Dextrose 1 gm/ (Premix) 50 mls @ 100 mls/hr IV Q8H [facility] Last Admin: 02/24/18 01:31 Dose: 100 mls/hr Lactated Ringer's (Ringers, Lactated) 1,000 mls @ 999 mls/hr IV .BOLUS ONE Stop: 02/22/18 11:00 Last Admin: 02/22/18 10:00 Dose: 999 mls/hr Lactated Ringer's (Ringers, Lactated) 750 mls @ 999 mls/hr IV ONETIME ONE Stop: 02/22/18 12:00 Last Admin: 02/22/18 11:15 Dose: 999 mls/hr Norepinephrine Bitartrate 4 mg (/ Dextrose/Water) 250 mls @ 7.5 mls/hr IV TITRATE ANGELA; Protocol Stop: 02/22/18 17:30 Last Titration: 02/22/18 17:02 Dose: 12 mcg/min, 45 mls/hr Lactated Ringer's (Ringers, Lactated) 1,000 mls @ 999 mls/hr IV ASDIRECTED ONE Stop: 02/22/18 14:30 Last Admin: 02/22/18 13:30 Dose: 999 mls/hr Lactated Ringer's (Ringers, Lactated) 1,000 mls @ 500 mls/hr IV ONETIME ONE Stop: 02/22/18 16:29 Last Admin: 02/22/18 14:19 Dose: 500 mls/hr Vasopressin 100 units/ (Dextrose/Water) 255 mls @ 1.53 mls/hr IV TITRATE ANGELA; Protocol Vasopressin 100 units/ (Dextrose/Water) 255 mls @ 1.53 mls/hr IV TITRATE ANGELA; Protocol Last Titration: 02/22/18 15:57 Dose: 0.02 units/min, 3.06 mls/hr Norepinephrine Bitartrate 8 mg (/ Dextrose/Water) 500 mls @ 7.5 mls/hr IV TITRATE ANGELA; Protocol Last Titration: 02/24/18 08:50 Dose: 0 mcg/min, 0 mls/hr Lactated Ringer's (Ringers, Lactated) 1,000 mls @ 250 mls/hr IV ONETIME ONE Stop: 02/22/18 20:29 Last Infusion: 02/22/18 20:04 Dose: 125 mls/hr Magnesium Sulfate 2 gm/ Premix 50 mls @ 25 mls/hr IV Q6H [facility] Stop: 02/23/18 17:29 Last Admin: 02/23/18 14:31 Dose: 25 mls/hr Vasopressin 40 units/ Dextrose (/Water) 100 mls @ 1.5 mls/hr IV TITRATE ANGELA; Protocol Last Titration: 02/23/18 17:02 Dose: 0 units/min, 0 mls/hr Potassium Phosphate 22.5 mmole (/ Sodium Chloride) 107.5 mls @ 35 mls/hr IV Q3H [facility] Stop: 02/24/18 15:59 Last Admin: 02/24/18 13:01 Dose: 35 mls/hr Ibuprofen (Motrin) 400 mg PO Q6H [facility] Last Admin: 02/17/18 08:22 Dose: 400 mg Insulin Aspart (Novolog) Confirm Administered Dose 300 unit .ROUTE .STK-MED ONE Stop: 02/23/18 06:25 Last Admin: 02/23/18 06:43 Dose: 10 units Insulin Aspart (Novolog) 0 unit SUBCUT Q6H PRN; Protocol PRN Reason: MEDIUM CORRECTIONAL DOSE Last Admin: 02/23/18 12:17 Dose: 12 units Insulin Detemir (Levemir) Confirm Administered Dose 300 unit .ROUTE .STK-MED ONE Stop: 02/23/18 06:09 Last Admin: 02/23/18 06:43 Dose: 10 units Insulin Detemir (Levemir) 10 unit SUBCUT Q12H [facility] Last Admin: 02/24/18 06:11 Dose: 10 units Isosorbide Mononitrate (Imdur) 30 mg PO DAILY [facility] Last Admin: 02/21/18 08:06 Dose: 30 mg Ketamine HCl (Ketalar) 25 mg IV ASDIRECTED [facility] Ketorolac Tromethamine (Toradol) Confirm Administered Dose 60 mg .ROUTE .STK- MED ONE Stop: 02/25/18 09:07 Levothyroxine Sodium (Levothyroxine) 75 mcg PO ACBREAKFAST [facility] Last Admin: 02/21/18 07:46 Dose: 75 mcg Lidocaine HCl (Xylocaine-Mpf 1%) Confirm Administered Dose 5 ml .ROUTE .STK-MED ONE Stop: 02/14/18 12:41 Last Admin: 02/14/18 16:48 Dose: Not Given Lidocaine HCl (Xylocaine-Mpf 1%) 0.1 ml INJECT ONETIME ONE Stop: 02/14/18 12:43 Last Admin: 02/14/18 16:48 Dose: Not Given Lidocaine/Epinephrine (Xylocaine 1% With Epinephrine 1:100,000) Confirm Administered Dose 50 ml .ROUTE .STK-MED ONE Stop: 02/16/18 06:45 Last Admin: 02/16/18 07:44 Dose: 10 ml Magnesium Hydroxide (Milk Of Magnesia) 30 ml PO BID [facility] Stop: 02/16/18 21:01 Last Admin: 02/16/18 20:18 Dose: 30 ml Magnesium Hydroxide (Milk Of Magnesia) 30 ml PO ASDIRECTED PRN PRN Reason: * Melatonin (Melatonin) 9 mg PO BEDTIME PRN PRN Reason: Insomnia Last Admin: 02/22/18 00:39 Dose: 9 mg Meperidine HCl (Demerol) 75 mg IM ONETIME ONE Stop: 02/17/18 11:01 Last Admin: 02/17/18 11:00 Dose: 75 mg Meropenem (Merrem) Confirm Administered Dose 500 mg .ROUTE .STK-MED ONE Stop: 02/14/18 08:44 Last Admin: 02/14/18 14:30 Dose: 500 mg Meropenem (Merrem) Confirm Administered Dose 500 mg .ROUTE .STK-MED ONE Stop: 02/16/18 06:45 Last Admin: 02/16/18 07:49 Dose: 500 mg Meropenem (Merrem) Confirm Administered Dose 500 mg .ROUTE .STK-MED ONE Stop: 02/22/18 05:07 Meropenem (Merrem) Confirm Administered Dose 1,500 mg .ROUTE .STK-MED ONE Stop: 02/22/18 05:51 Meropenem (Merrem) Confirm Administered Dose 500 mg .ROUTE .STK-MED ONE Stop: 02/22/18 06:05 Last Admin: 02/22/18 06:00 Dose: 3,500 mg Meropenem (Merrem) Confirm Administered Dose 1,000 mg .ROUTE .STK-MED ONE Stop: 02/22/18 06:40 Meropenem (Merrem) 1,000 mg IRR ONETIME ONE Stop: 02/22/18 07:31 Last Admin: 02/22/18 07:30 Dose: 1,000 mg Meropenem (Merrem) Confirm Administered Dose 1,000 mg .ROUTE .STK-MED ONE Stop: 02/23/18 06:39 Last Admin: 02/23/18 10:18 Dose: 1,500 mg Methylprednisolone Sodium Succinate (Solu-Medrol) 40 mg IVPUSH Q12H [facility] Last Admin: 02/22/18 01:34 Dose: 40 mg Metoclopramide HCl (Reglan) 10 mg IVPUSH Q8H [facility] Last Admin: 02/22/18 01:34 Dose: 10 mg Naloxone HCl (Narcan) 0.1 mg IVPUSH Q5M PRN PRN Reason: RESP RATE LESS THAN 6/MINUTE Last Admin: 02/15/18 15:23 Dose: 0.1 mg Neostigmine Methylsulfate (Neostigmine) Confirm Administered Dose 5 mg .ROUTE .STK-MED ONE Stop: 02/14/18 09:36 Neostigmine Methylsulfate (Neostigmine) Confirm Administered Dose 5 mg .ROUTE .STK-MED ONE Stop: 02/22/18 04:44 Nitroglycerin (Nitrostat) 0.4 mg SL ASDIRECTED PRN PRN Reason: CHEST PAIN Ondansetron HCl (Zofran) Confirm Administered Dose 4 mg .ROUTE .STK-MED ONE Stop: 02/14/18 09:36 Ondansetron HCl (Zofran) 4 mg IVPUSH Q4H PRN PRN Reason: NAUSEA Last Admin: 02/22/18 00:43 Dose: 4 mg Ondansetron HCl (Zofran) Confirm Administered Dose 4 mg .ROUTE .STK-MED ONE Stop: 02/22/18 04:44 Pantoprazole Sodium (Protonix Iv) 40 mg IV Q24H [facility] Last Admin: 02/16/18 17:44 Dose: 40 mg Pantoprazole Sodium (Protonix) 40 mg PO ACBREAKFAST [facility] Last Admin: 02/22/18 10:05 Dose: Not Given Trans-Derm Scop (Patch Removal) 0 each TOP ONETIME ONE Stop: 02/16/18 14:01 Last Admin: 02/16/18 15:05 Dose: Not Given Phenylephrine HCl (Manuel-Synephrine) Confirm Administered Dose 10 mg .ROUTE .STK- MED ONE Stop: 02/22/18 05:40 Prednisone (Prednisone) 2.5 mg PO DAILY [facility] Last Admin: 02/18/18 09:45 Dose: 2.5 mg Prednisone (Prednisone) 10 mg PO DAILY [facility] Last Admin: 02/18/18 11:38 Dose: 10 mg Propofol (Diprivan 20 Ml) Confirm Administered Dose 200 mg .ROUTE .STK-MED ONE Stop: 02/14/18 09:36 Propofol (Diprivan 20 Ml) Confirm Administered Dose 200 mg .ROUTE .STK-MED ONE Stop: 02/16/18 07:10 Propofol (Diprivan 20 Ml) Confirm Administered Dose 200 mg .ROUTE .STK-MED ONE Stop: 02/22/18 04:44 Propofol (Diprivan 20 Ml) Confirm Administered Dose 200 mg .ROUTE .STK-MED ONE Stop: 02/23/18 06:59 Rocuronium [place] (Zemuron) Confirm Administered Dose 50 mg .ROUTE .K-MED ONE Stop: 02/14/18 09:36 Rocuronium [place] (Zemuron) Confirm Administered Dose 50 mg .ROUTE .K-MED ONE Stop: 02/22/18 04:44 Rocuronium [place] (Zemuron) Confirm Administered Dose 50 mg .ROUTE .K-MED ONE Stop: 02/23/18 06:59 Rocuronium [place] (Zemuron) Confirm Administered Dose 50 mg .ROUTE .K-MED ONE Stop: 02/25/18 09:02 Scopolamine (Transderm-Scop) 1.5 mg TOP ONETIME ONE Stop: 02/14/18 08:16 Last Admin: 02/14/18 08:32 Dose: 1.5 mg Senna (Senna) 8.6 mg PO BEDTIME [facility] Last Admin: 02/15/18 21:24 Dose: 8.6 mg Senna (Senna) 17.2 mg PO BEDTIME [facility] Last Admin: 02/21/18 20:54 Dose: 17.2 mg Succinylcholine Chloride (Quelicin) Confirm Administered Dose 200 mg .ROUTE .K -MED ONE Stop: 02/14/18 09:36 Succinylcholine Chloride (Quelicin) Confirm Administered Dose 200 mg .ROUTE .K -MED ONE Stop: 02/22/18 04:44 Theophylline (Pablito-24) 400 mg PO DAILY [facility] Last Admin: 02/19/18 09:31 Dose: 400 mg Tramadol HCl (Ultram) 50 mg PO Q6H PRN PRN Reason: PAIN Last Admin: 02/17/18 04:00 Dose: 50 mg Vancomycin HCl (Vancomycin) 1 gm IV .PHARMACY TO DOSE [facility] Stop: 02/24/18 12:00 - Exam Quality Assessment: Supplemental Oxygen, Urine Catheter, Restraints General: No Acute Distress. No: Alert Neck: Supple Lungs: Clear to Auscultation, Normal Respiratory Effort Cardiovascular: Regular Rhythm, Tachycardia GI/Abdominal Exam: Soft, Distended (mild), Abnormal Bowel Sounds (hypoactive) Extremities: Pedal Edema, Other (pitting edema both arms) Skin: Warm, Dry Psy/Mental Status: No: Alert, Anxious Consult PN Assessment/Plan Procedures: Procedures AGENT NOS ASSAY W/OPTIC (01/19/18) AIRWAY INHALATION TREATMENT (01/19/18) ASSAY OF AMYLASE (01/02/18) ASSAY OF LIPASE (01/19/18) ASSAY OF MAGNESIUM (01/19/18) ASSAY OF PHOSPHORUS (01/19/18) ASSAY OF SERUM POTASSIUM (01/19/18) ASSAY THYROID STIM HORMONE (01/19/18) C DIFF AMPLIFIED PROBE (01/19/18) C-REACTIVE PROTEIN (01/19/18) CARDIOVASCULAR STRESS TEST (04/12/16) CHEST WALL MANIPULATION (12/19/17) CHEST WALL MANIPULATION (12/19/17) COMP SCREEN MAMMOGRAM ADD-ON (04/05/15) COMPLETE CBC AUTOMATED (01/19/18) COMPLETE CBC W/AUTO DIFF WBC (01/19/18) COMPREHEN METABOLIC PANEL (01/19/18) CT ABD & PELV W/CONTRAST (01/19/18) CT ABD & PELVIS W/O CONTRAST (01/02/18) CULTURE AEROBIC IDENTIFY (12/19/17) CULTURE OTHR SPECIMN AEROBIC (12/19/17) CULTURE SCREEN ONLY (10/09/17) EGD BIOPSY SINGLE/MULTIPLE (10/09/17) EMERGENCY DEPT VISIT (01/19/18) EMERGENCY DEPT VISIT (01/19/18) HT MUSCLE IMAGE SPECT MULT (04/12/16) HYDRATE IV INFUSION ADD-ON (01/19/18) LEUKOCYTE ASSESSMENT FECAL (01/02/18) MANUAL THERAPY 1/> REGIONS (02/12/18) METABOLIC PANEL TOTAL CA (01/19/18) NEUROMUSCULAR REEDUCATION (12/17/17) OVA AND PARASITES SMEARS (01/19/18) PROTHROMBIN TIME (01/19/18) PT EVAL MOD COMPLEX 30 MIN (08/13/17) ROUTINE VENIPUNCTURE (01/19/18) SMEAR COMPLEX STAIN (01/19/18) SMEAR GRAM STAIN (12/19/17) STOOL CULTR AEROBIC BACT EA (01/19/18) THER/PROPH/DIAG INJ IV PUSH (01/19/18) THERAPEUTIC EXERCISES (12/17/17) TISSUE EXAM BY PATHOLOGIST (10/09/17) TX/PRO/DX INJ SAME DRUG RECRUITER COORDINATOR (01/02/18) ULTRASOUND THERAPY (02/12/18) X-RAY EXAM ABDOMEN 2 VIEWS (01/02/18) X-RAY EXAM OF SHOULDER (07/26/17) Problem List Initiated/Reviewed/Updated: Yes My Orders Last 24 Hours: My Active Orders 02/25/18 08:32 FIBRINOGEN [COAG] Routine 02/25/18 08:37 HEPARIN INDUCED PLATELET W/RFX Routine 02/25/18 08:50 D Dimer [D-DIMER QUANTITATIVE] [COAG] Routine INR,PT,PROTHROMBIN TIME [COAG] Routine PTT,PARTIAL THROMBOPLSTIN TIME [COAG] Routine 02/26/18 05:00 BLOOD GAS ARTERIAL [BG] Timed CBC W/O DIFF,HEMOGRAM [HEME] Timed (1) COMPREHENSIVE METABOLIC PN,CMP [CHEM] Timed Plan: ASSESSMENT AND RECOMMENDATIONS INTRA-ABDOMINAL INFECTION WITH SEPSIS - Intra-abdominal cultures growing enterococcus and yeast. Blood pressure has remained stable. She is mildly tachycardic at this time. Concern for bile leak and surgery is planned for later in the day. -Continue current antibiotic therapy with meropenem -Discontinue as active -IV vancomycin and fluconazole -Decrease IV fluid infusions HYPOXIC RESPIRATORY FAILURE - likely secondary to COPD and possible contribution from volume overload. On minimal ventilator support at this time. -Sedation holiday today as tolerated -Spontaneous breathing trials daily -Continue nebulizer therapy Severe thrombocytopenia - no evidence for bleeding at this time. Suspect combination of sepsis and possible disseminated intravascular coagulation. Heparin has also been discontinued. Platelet transfusion planned for around the time of surgical intervention. -Agree with platelet transfusion -Workup for heparin-induced thrombocytopenia -Daily laboratory studies TYPE 2 DIABETES MELLITUS - sugars have stabilized. -Discontinue long acting insulin -Monitor sugars, restart insulin if indicated ACUTE KIDNEY INJURY - renal function has continued to improve with optimization of intravascular volume status. -Continue closely monitor urine output and renal function Holger Zambrano M.D.
--- NOTE | 2018-02-25 10:19 | CR ---
Chest 1V Frontal INDICATION: ensure ET tube placement COMPARISON: 02/24/2018 FINDINGS: AP portable chest. Worsening CHF since the prior study. ET tube remains in the mid trachea, position unchanged. Pacer [place].
--- NOTE | 2018-02-25 10:33 | CR ---
Chest 1V Frontal INDICATION: ensure ET tube placement COMPARISON: 02/23/2018 FINDINGS: AP portable chest. ET tube in central venous catheter remain in place, positions unchanged. Cardiomegaly and bilateral pleural effusions unchanged.
[2018-02-25] MEDS ORDERED: Linezolid 200 MG/100 ML Bag IRR ONE (12:20)
--- NOTE | 2018-02-25 13:29 | PN ---
DATE OF SERVICE: 02/24/2018 The patient has remained hemodynamically stable and is presently off vasopressin and 2 mcg/minute of the norepinephrine, maintaining her blood pressure. 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 From the Respiratory standpoint, she is noted to have relatively little in the way of secretions, blood gases continue to look satisfactory. She does have some hyperventilation, typical for this type of patient. Otherwise, she is having some serous drainage from the abdominal incision. There may be some slight ascitic leak. The plan is to proceed with a delayed primary closure of that tomorrow. We will look to see if there is any fascia that needs to be tightened up at that time as well. Otherwise, continue the present antibiotics. She is growing some fungus from the intraperitoneal cultures and we will ask Dr. Lua if we should consider adding Diflucan to the antibiotic mix. She continues to be sedated with propofol. My expectation the patient tomorrow and given this, we would do the delayed primary closure and any fascial repair at the bedside tomorrow. Labs show white count being stable at 18,000 and hemoglobin is 9.1. We will give her 1 unit of RBCs today. Potassium is marginally low and that will be supplemented with potassium phosphate, given the relatively low phosphate at 2.9. Her albumin is strikingly low at 0.7. We will begin some albumin supplementation over the next day or so. So, we will likely start some TPN as well as the overall septic picture appears to be resolving. Of note, her lactate has now normalized at 1.9 and creatinine is 1.4. We will continue the supportive care, plan with closure of the wound tomorrow along with fascial repair if needed and otherwise continue management with the assistance of Dr. Lua. Robert Pate MD /[id number]
[2018-02-25] MEDS: Pantoprazole 40 MG Vial IV SCH (13:49)
[2018-02-25] MEDS: Magnesium Sulfate/Water 2 GM in Premix Bag 1 BAG IV SCH ×2 (15:00→21:00)
[2018-02-26] MEDS: Magnesium Sulfate/Water 2 GM in Premix Bag 1 BAG IV SCH ×3 (03:00→04:53)
[2018-02-26] MEDS: FENTANYL PATCH CHECK TOP SCH ×3 (04:54→20:49)
[2018-02-26] MEDS: Budesonide 0.5 MG/2 ML Neb Susp INH SCH ×3 (04:54→20:48)
[2018-02-26] MEDS: Albuterol/Ipratropium 3.0-0.5 MG/3 ML Neb Soln INH SCH ×5 (04:54→20:48)
--- NOTE | 2018-02-26 09:16 | PCM.CONSN ---
- General Info Date of Service: 02/26/18 Functional Status: Denies: Ambulating - Review of Systems General: Denies: Fever Systems Review Comment:: There were no acute events overnight. Patient has remained stable. She does open her eyes to voice but does not track or follow commands. She has remained mildly tachycardic. Blood pressure has been stable and she has not required vasopressor support. She did have a fever overnight and cultures were obtained. Urine output has been acceptable. Ventilator support remains minimal with peak inspiratory pressures around 15-16. - Patient Data Vitals - Most Recent: Last Vital Signs Temp 37.3 C 02/26/18 08:56 Pulse 114 H 02/26/18 07:40 Resp 20 02/26/18 08:56 BP 130/60 02/26/18 08:56 Pulse Ox 97 02/26/18 08:56 Weight - Most Recent: 46.266 kg I&O - Last 24 Hours: Intake & Output 02/25/18 02/26/18 02/26/18 22:59 06:59 14:59 Intake Total 740 0 Output Total 924 5591 175 Balance -925 -1131 -175 Lab Results Last 24 Hours: Laboratory Results - last 24 hr 02/23/18 02/25/18 02/25/18 Range/Units 04:35 08:32 08:50 WBC (4.5-11.0) K/uL RBC (3.30-5.50) M/uL Hgb (12.0-15.0) g/dL Hct (36.0-48.0) % MCV (80-98) fL MCH (27-31) pg MCHC (32-36) % Plt Count (150-400) K/uL PT 12.0 (9.5-12.0) sec INR 1.12 (0.80-1.20) APTT 41.5 H (27.0-36.0) sec Fibrinogen 336.7 (200.0-400.0) mg/dL D-Dimer, Quantitative (0.0-400.0) ng/mL Puncture Site ABG pH (7.350-7.450) ABG pCO2 (35.0-42.0) mmHg ABG pO2 (75.0-100.0) mmHg ABG HCO3 (22.0-26.0) mmol/L ABG Total CO2 (21.0-25.0) mmol/L ABG O2 Saturation (95.0-98.0) % ABG O2 Content (15.0-23.0) %vol ABG Base Excess mm/L ABG Hemoglobin (12.0-16.0) g/dL ABG Oxyhemoglobin % ABG Carboxyhemoglobin (0.0-1.6) % ABG Methemoglobin % Jose Manuel Test O2 Delivery Device Sodium (140-148) mmol/L Potassium (3.6-5.2) mmol/L Chloride (100-108) mmol/L Carbon Dioxide (21-32) mmol/L Anion Gap (5.0-14.0) mmol/L BUN (7-18) mg/dL Creatinine (0.6-1.0) mg/dL Est Cr Clr Drug Dosing mL/min Estimated GFR (MDRD) (>60) Glucose (74-106) mg/dL Lactic Acid (0.4-2.0) mmol/L Calcium (8.5-10.1) mg/dL Phosphorus (2.5-4.9) mg/dL Magnesium (1.8-2.4) mg/dL Total Bilirubin (0.2-1.0) mg/dL AST (15-37) U/L ALT (12-78) U/L Alkaline Phosphatase (46-116) U/L NT-Pro-B Natriuret Pep (5-450) pg/mL Total Protein (6.4-8.2) g/dL Albumin (3.4-5.0) g/dL Globulin (2.3-3.5) g/dL Albumin/Globulin Ratio (1.2-2.2) Blood Type A POSITIVE Gel Antibody Screen Negative Crossmatch See Detail 02/25/18 02/25/18 02/25/18 Range/Units 08:50 17:00 17:00 WBC (4.5-11.0) K/uL RBC (3.30-5.50) M/uL Hgb (12.0-15.0) g/dL Hct (36.0-48.0) % MCV (80-98) fL MCH (27-31) pg MCHC (32-36) % Plt Count (150-400) K/uL PT (9.5-12.0) sec INR (0.80-1.20) APTT (27.0-36.0) sec Fibrinogen (200.0-400.0) mg/dL D-Dimer, Quantitative 3530 H (0.0-400.0) ng/mL Puncture Site A-line ABG pH 7.477 H (7.350-7.450) ABG pCO2 32.8 L (35.0-42.0) mmHg ABG pO2 80.3 (75.0-100.0) mmHg ABG HCO3 23.9 (22.0-26.0) mmol/L ABG Total CO2 22.5 (21.0-25.0) mmol/L ABG O2 Saturation 96.5 (95.0-98.0) % ABG O2 Content (15.0-23.0) %vol ABG Base Excess 1.0 mm/L ABG Hemoglobin 8.1 L (12.0-16.0) g/dL ABG Oxyhemoglobin 94.7 % ABG Carboxyhemoglobin 1.3 (0.0-1.6) % ABG Methemoglobin 0.6 % Jose Manuel Test A-line O2 Delivery Device Ventilator Sodium (140-148) mmol/L Potassium (3.6-5.2) mmol/L Chloride (100-108) mmol/L Carbon Dioxide (21-32) mmol/L Anion Gap (5.0-14.0) mmol/L BUN (7-18) mg/dL Creatinine (0.6-1.0) mg/dL Est Cr Clr Drug Dosing mL/min Estimated GFR (MDRD) (>60) Glucose (74-106) mg/dL Lactic Acid 1.4 (0.4-2.0) mmol/L Calcium (8.5-10.1) mg/dL Phosphorus (2.5-4.9) mg/dL Magnesium (1.8-2.4) mg/dL Total Bilirubin (0.2-1.0) mg/dL AST (15-37) U/L ALT (12-78) U/L Alkaline Phosphatase (46-116) U/L NT-Pro-B Natriuret Pep (5-450) pg/mL Total Protein (6.4-8.2) g/dL Albumin (3.4-5.0) g/dL Globulin (2.3-3.5) g/dL Albumin/Globulin Ratio (1.2-2.2) Blood Type Gel Antibody Screen Crossmatch 02/26/18 02/26/18 02/26/18 Range/Units 04:00 04:00 04:00 WBC (4.5-11.0) K/uL RBC (3.30-5.50) M/uL Hgb (12.0-15.0) g/dL Hct (36.0-48.0) % MCV (80-98) fL MCH (27-31) pg MCHC (32-36) % Plt Count (150-400) K/uL PT (9.5-12.0) sec INR (0.80-1.20) APTT (27.0-36.0) sec Fibrinogen (200.0-400.0) mg/dL D-Dimer, Quantitative (0.0-400.0) ng/mL Puncture Site A-line ABG pH 7.488 H (7.350-7.450) ABG pCO2 31.3 L (35.0-42.0) mmHg ABG pO2 104.0 H (75.0-100.0) mmHg ABG HCO3 23.5 (22.0-26.0) mmol/L ABG Total CO2 21.8 (21.0-25.0) mmol/L ABG O2 Saturation 98.5 H (95.0-98.0) % ABG O2 Content 12.3 L (15.0-23.0) %vol ABG Base Excess 0.9 mm/L ABG Hemoglobin 9.1 L (12.0-16.0) g/dL ABG Oxyhemoglobin 95.2 % ABG Carboxyhemoglobin 2.8 H (0.0-1.6) % ABG Methemoglobin 0.6 % Jose Manuel Test A-line O2 Delivery Device Ventilator Sodium 140 (140-148) mmol/L Potassium 3.4 L (3.6-5.2) mmol/L Chloride 107 (100-108) mmol/L Carbon Dioxide 25 (21-32) mmol/L Anion Gap 11.4 (5.0-14.0) mmol/L BUN 19 H (7-18) mg/dL Creatinine 0.8 (0.6-1.0) mg/dL Est Cr Clr Drug Dosing 38.94 mL/min Estimated GFR (MDRD) > 60 (>60) Glucose 96 (74-106) mg/dL Lactic Acid (0.4-2.0) mmol/L Calcium 7.0 L (8.5-10.1) mg/dL Phosphorus 2.9 (2.5-4.9) mg/dL Magnesium 2.2 D (1.8-2.4) mg/dL Total Bilirubin 1.4 H (0.2-1.0) mg/dL AST 119 H (15-37) U/L ALT 40 (12-78) U/L Alkaline Phosphatase 72 (46-116) U/L NT-Pro-B Natriuret Pep 2967 H (5-450) pg/mL Total Protein 3.8 L (6.4-8.2) g/dL Albumin 1.6 L (3.4-5.0) g/dL Globulin 2.2 L (2.3-3.5) g/dL Albumin/Globulin Ratio 0.7 L (1.2-2.2) Blood Type Gel Antibody Screen Crossmatch 02/26/18 02/26/18 02/26/18 Range/Units 04:00 04:00 05:00 WBC 6.1 (4.5-11.0) K/uL RBC 3.14 L (3.30-5.50) M/uL Hgb 8.8 L (12.0-15.0) g/dL Hct 27.1 L (36.0-48.0) % MCV 86 (80-98) fL MCH 28 (27-31) pg MCHC 33 (32-36) % Plt Count 56 L (150-400) K/uL PT (9.5-12.0) sec INR (0.80-1.20) APTT (27.0-36.0) sec Fibrinogen (200.0-400.0) mg/dL D-Dimer, Quantitative (0.0-400.0) ng/mL Puncture Site ABG pH (7.350-7.450) ABG pCO2 (35.0-42.0) mmHg ABG pO2 (75.0-100.0) mmHg ABG HCO3 (22.0-26.0) mmol/L ABG Total CO2 (21.0-25.0) mmol/L ABG O2 Saturation (95.0-98.0) % ABG O2 Content (15.0-23.0) %vol ABG Base Excess mm/L ABG Hemoglobin (12.0-16.0) g/dL ABG Oxyhemoglobin % ABG Carboxyhemoglobin (0.0-1.6) % ABG Methemoglobin % Jose Manuel Test O2 Delivery Device Sodium (140-148) mmol/L Potassium (3.6-5.2) mmol/L Chloride (100-108) mmol/L Carbon Dioxide (21-32) mmol/L Anion Gap (5.0-14.0) mmol/L BUN (7-18) mg/dL Creatinine (0.6-1.0) mg/dL Est Cr Clr Drug Dosing mL/min Estimated GFR (MDRD) (>60) Glucose (74-106) mg/dL Lactic Acid 1.4 (0.4-2.0) mmol/L Calcium (8.5-10.1) mg/dL Phosphorus (2.5-4.9) mg/dL Magnesium (1.8-2.4) mg/dL Total Bilirubin (0.2-1.0) mg/dL AST (15-37) U/L ALT (12-78) U/L Alkaline Phosphatase (46-116) U/L NT-Pro-B Natriuret Pep (5-450) pg/mL Total Protein (6.4-8.2) g/dL Albumin (3.4-5.0) g/dL Globulin (2.3-3.5) g/dL Albumin/Globulin Ratio (1.2-2.2) Blood Type A POSITIVE Gel Antibody Screen Negative Crossmatch See Detail Kash Results Last 24 Hours: Microbiology 02/25/18 12:30 Gram Stain - Final Abdominal Fluid - Drainage 02/22/18 05:54 Gram Stain - Final Abdomen - Abscess Wound Culture - Final Enterococcus Faecalis Yeast Isolated Staphylococcus Coagulase Neg Anaerobic Culture - Final NO GROWTH AFTER 3 DAYS Med Orders - Current: Current Medications Albuterol/Ipratropium (Duoneb 3.0-0.5 Mg/3 Ml) 3 ml INH ASDIRECTED PRN PRN Reason: RESP Last Admin: 02/17/18 18:57 Dose: 3 ml Albuterol/Ipratropium (Duoneb 3.0-0.5 Mg/3 Ml) 3 ml INH QIDRT [facility] Last Admin: 02/26/18 07:02 Dose: 3 ml Budesonide (Pulmicort) 0.5 mg INH BIDRT [facility] Last Admin: 02/26/18 07:02 Dose: 0.5 mg Dextrose (Glutose 15) 15 gm PO ASDIRECTED PRN PRN Reason: HYPOGLYCEMIA Dextrose/Water (Dextrose 50% In Water) 50 ml IVPUSH ASDIRECTED PRN PRN Reason: HYPOGLYCEMIA Furosemide (Lasix) 20 mg IV ASDIRECTED [facility] Stop: 02/26/18 23:00 Glucagon (Glucagen) 1 mg IM ASDIRECTED PRN PRN Reason: HYPOGLYCEMIA Hydromorphone HCl (Dilaudid Teacher 15 Mg In Ns 30 Ml) 15 mg IV ASDIRECTED [facility]; Protocol Last Admin: 02/25/18 08:34 Dose: 15 mg Propofol (Diprivan 100 Ml) 100 mls @ 1.46 mls/hr IV TITRATE [facility]; Protocol Last Admin: 02/24/18 01:41 Dose: 5 mcg/kg/min, 1.46 mls/hr Meropenem 1 gm/ Sodium (Chloride) 50 mls @ 100 mls/hr IV Q12H [facility] Last Admin: 02/26/18 04:55 Dose: 100 mls/hr Albumin Human (Albumin 25%) 25 gm in 100 mls @ 25 mls/hr IV DAILY [facility] Stop: 02/27/18 12:59 Last Admin: 02/26/18 08:31 Dose: 25 mls/hr Albumin Human (Albumin 25%) 25 gm in 100 mls @ 25 mls/hr IV Q24H [facility] Stop: 02/27/18 16:59 Last Admin: 02/25/18 13:50 Dose: 25 mls/hr Fluconazole/Sodium Chloride (200 mg/ Premix) 100 mls @ 100 mls/hr IV Q24H [facility] Last Admin: 02/25/18 08:56 Dose: 100 mls/hr Vancomycin HCl 1 gm/ Sodium (Chloride) 250 mls @ 167 mls/hr IV Q24H [facility] Last Admin: 02/25/18 10:31 Dose: 167 mls/hr Dextrose/Lactated Ringer's (Dextrose 5%-Lactated Ringers) 1,000 mls @ 50 mls/ hr IV ASDIRECTED [facility] Last Admin: 02/25/18 04:37 Dose: 50 mls/hr Potassium Phosphate 22.5 mmole (/ Sodium Chloride) 107.5 mls @ 35 mls/hr IV Q3H [facility] Stop: 02/26/18 15:29 Naloxone HCl (Narcan) 0.1 mg IV ASDIRECTED PRN PRN Reason: decreased respiratory rate Fentanyl Patch Check 1 each TOP BID [facility] Last Admin: 02/26/18 08:32 Dose: Not Given Pantoprazole Sodium (Protonix Iv) 40 mg IV Q24H [facility] Last Admin: 02/25/18 13:49 Dose: 40 mg Discontinued Medications Acetaminophen (Tylenol Extra Strength) 1,000 mg PO ONETIME ONE Stop: 02/14/18 08:16 Last Admin: 02/14/18 08:31 Dose: 1,000 mg Acetaminophen (Tylenol) 650 mg PO Q6H [facility] Last Admin: 02/22/18 01:34 Dose: 650 mg Albuterol/Ipratropium (Duoneb 3.0-0.5 Mg/3 Ml) 3 ml NEB ONETIME ONE Stop: 02/14/18 09:46 Last Admin: 02/14/18 12:32 Dose: 3 ml Allopurinol (Zyloprim) 150 mg PO DAILY [facility] Last Admin: 02/21/18 08:06 Dose: 150 mg Alvimopan (Entereg) 12 mg PO ONETIME ONE Stop: 02/14/18 08:16 Last Admin: 02/14/18 08:31 Dose: 12 mg Alvimopan (Entereg) 12 mg PO BID [facility] Stop: 02/21/18 09:01 Last Admin: 02/21/18 08:05 Dose: 12 mg Aspirin (Halfprin) 81 mg PO DAILY [facility] Last Admin: 02/21/18 08:06 Dose: 81 mg Aztreonam (Azactam) Confirm Administered Dose 1 gm .ROUTE .STK-MED ONE Stop: 02/22/18 06:21 Last Admin: 02/22/18 06:20 Dose: 2 gm Aztreonam (Azactam) Confirm Administered Dose 1 gm .ROUTE .STK-MED ONE Stop: 02/22/18 06:21 Bisacodyl (Dulcolax) 10 mg PO BID [facility] Last Admin: 02/21/18 20:54 Dose: 10 mg Bisacodyl (Dulcolax) 10 mg RECTAL TID [facility] Last Admin: 02/21/18 21:01 Dose: 10 mg Bisacodyl (Dulcolax) 10 mg RECTAL ONETIME ONE Stop: 02/21/18 10:01 Last Admin: 02/21/18 09:37 Dose: Not Given Bupivacaine HCl (Marcaine 0.5%) Confirm Administered Dose 50 ml .ROUTE .STK-MED ONE Stop: 02/16/18 06:45 Last Admin: 02/16/18 07:44 Dose: 10 ml Carvedilol (Coreg) 3.125 mg PO BIDMEALS [facility] Last Admin: 02/21/18 17:39 Dose: 3.125 mg Cefoxitin Sodium (Mefoxin) Confirm Administered Dose 2 gm .ROUTE .STK-MED ONE Stop: 02/14/18 08:44 Ropivacaine 25 ml/Dexamethasone 8 mg/Epinephrine HCl 0.4 mg/ Sodium Chloride 52.6 ml 0 ml NERVRT ASDIRECTED [facility] Neomycin/Polymyxin 1 ml/ (Sodium Chloride 500 ml) 0 ml IRR ONETIME ONE Stop: 02/14/18 08:16 Last Admin: 02/14/18 08:35 Dose: 750 irr Ropivacaine 25 ml/Dexamethasone 8 mg/Epinephrine HCl 0.4 mg/ Sodium Chloride 52.6 ml 0 ml NERVRT ASDIRECTED [facility] Last Admin: 02/16/18 07:59 Dose: 80 syringe Dexamethasone (Dexamethasone) Confirm Administered Dose 4 mg .ROUTE .STK-MED ONE Stop: 02/14/18 09:36 Dexamethasone (Dexamethasone) Confirm Administered Dose 4 mg .ROUTE .STK-MED ONE Stop: 02/22/18 04:44 Dextrose/Water (Dextrose 50% In Water) 25 ml IVPUSH ONETIME ONE Stop: 02/25/18 02:21 Last Admin: 02/25/18 02:28 Dose: 25 ml Diphenhydramine HCl (Benadryl) 25 mg IVPUSH Q6H PRN PRN Reason: Itching Last Admin: 02/14/18 15:58 Dose: 25 mg Ephedrine Sulfate (Ephedrine Sulfate) Confirm Administered Dose 50 mg .ROUTE .STK-MED ONE Stop: 02/14/18 13:50 Ephedrine Sulfate (Ephedrine Sulfate) Confirm Administered Dose 50 mg .ROUTE .STK-MED ONE Stop: 02/22/18 05:33 Erythromycin Ethylsuccinate (Eryped 400) 250 mg NGTUBE Q6H [facility] Last Admin: 02/22/18 04:26 Dose: Not Given Fentanyl (Sublimaze) Confirm Administered Dose 250 mcg .ROUTE .STK-MED ONE Stop: 02/14/18 09:36 Fentanyl (Sublimaze) Confirm Administered Dose 100 mcg .ROUTE .STK-MED ONE Stop: 02/16/18 07:10 Fentanyl (Sublimaze) Confirm Administered Dose 250 mcg .ROUTE .STK-MED ONE Stop: 02/22/18 04:44 Fentanyl (Duragesic) Confirm Administered Dose 12 mcg .ROUTE .STK-MED ONE Stop: 02/22/18 05:42 Last Admin: 02/22/18 05:51 Dose: 12 mcg Fentanyl (Duragesic) 12 mcg TRDERM Q72H [facility] Last Admin: 02/25/18 06:37 Dose: 12 mcg Fentanyl (Sublimaze) Confirm Administered Dose 100 mcg .ROUTE .STK-MED ONE Stop: 02/23/18 07:51 Fentanyl (Sublimaze) Confirm Administered Dose 250 mcg .ROUTE .STK-MED ONE Stop: 02/25/18 09:02 Furosemide (Lasix) 40 mg PO DAILY [facility] Last Admin: 02/18/18 09:45 Dose: 40 mg Furosemide (Lasix) 20 mg IVPUSH ONETIME STA Stop: 02/17/18 20:03 Last Admin: 02/17/18 20:30 Dose: 20 mg Furosemide (Lasix) 40 mg IVPUSH NOW ONE Stop: 02/17/18 21:33 Last Admin: 02/17/18 21:53 Dose: 40 mg Furosemide (Lasix) 20 mg IVPUSH NOW ONE Stop: 02/21/18 10:01 Last Admin: 02/21/18 09:50 Dose: 20 mg Furosemide (Lasix) 20 mg IV NOW ONE Stop: 02/22/18 09:01 Furosemide (Lasix) 10 mg IV ASDIRECTED [facility] Stop: 02/26/18 23:00 Glucagon (Glucagen) Confirm Administered Dose 1 mg .ROUTE .STK-MED ONE Stop: 02/14/18 14:26 Glycopyrrolate (Robinul) Confirm Administered Dose 1 mg .ROUTE .STK-MED ONE Stop: 02/14/18 09:36 Glycopyrrolate (Robinul) Confirm Administered Dose 1 mg .ROUTE .STK-MED ONE Stop: 02/22/18 04:44 Heparin Sodium (Porcine) (Heparin Lock Flush 100 Units/Ml) Confirm Administered Dose 500 units .ROUTE .STK-MED ONE Stop: 02/22/18 06:05 Last Admin: 02/22/18 08:30 Dose: 500 units Heparin Sodium (Porcine) (Heparin Sodium) Confirm Administered Dose 5,000 units .ROUTE .STK-MED ONE Stop: 02/22/18 07:34 Heparin Sodium (Porcine) (Heparin Sodium) Confirm Administered Dose 5,000 units .ROUTE .K-MED ONE Stop: 02/22/18 09:11 Last Admin: 02/22/18 10:43 Dose: Not Given Hydromorphone HCl (Dilaudid Teacher 15 Mg In Ns 30 Ml) 0 mg IV ASDIRECTED PRN; Protocol PRN Reason: [employer] PAIN [employer]OL Last Admin: 02/19/18 06:32 Dose: 15 mg Hydromorphone HCl (Dilaudid Teacher 15 Mg In Ns 30 Ml) Confirm Administered Dose 15 mg IV .STK-MED ONE Stop: 02/17/18 10:18 Last Admin: 02/17/18 10:31 Dose: Not Given Hydroxyzine HCl (Vistaril) 0 mg IM Q4H PRN PRN Reason: PAIN Last Admin: 02/22/18 01:27 Dose: 75 mg Hydroxyzine HCl (Vistaril) 75 mg IM ONETIME ONE Stop: 02/17/18 11:01 Last Admin: 02/17/18 11:00 Dose: 75 mg Dextrose/Lactated Ringer's (Dextrose 5%-Lactated Ringers) 1,000 mls @ 100 mls/ hr IV ASDIRECTED [facility] Last Admin: 02/14/18 12:44 Dose: 100 mls/hr Meropenem 500 mg/ Sodium (Chloride) 50 mls @ 100 mls/hr IV ONETIME ONE Stop: 02/14/18 10:14 Last Admin: 02/14/18 12:59 Dose: 100 mls/hr Fentanyl 2,500 mcg/ Sodium (Chloride) 250 mls @ 0 mls/hr EPIDUR TITRATE [facility]; Protocol Fentanyl Citrate 2,500 mcg/ (Sodium Chloride) 250 mls @ 0 mls/hr EPIDUR TITRATE [facility]; Protocol Last Admin: 02/15/18 15:05 Dose: 8 mls/hr, 8 mls/hr Lactated Ringer's (Ringers, Lactated) Confirm Administered Dose 1,000 mls @ as directed .ROUTE .[facility]-MED ONE Stop: 02/14/18 14:38 Dextrose/Lactated Ringer's (Dextrose 5%-Lactated Ringers) 1,000 mls @ 100 mls/ hr IV ASDIRECTED [facility] Dextrose/Lactated Ringer's (Dextrose 5%-Lactated Ringers) 1,000 mls @ 150 mls/ hr IV ASDIRECTED [facility] Last Admin: 02/15/18 02:48 Dose: 150 mls/hr Cefoxitin Sodium 2 gm/ Sodium (Chloride) 50 mls @ 100 mls/hr IV Q6H [facility] Last Admin: 02/17/18 08:48 Dose: 100 mls/hr Potassium Chloride/Dextrose/Sod Cl (D5 1/2 Ns W/ 20 Meq/L Kcl) 1,000 mls @ 80 mls/hr IV ASDIRECTED [facility] Last Admin: 02/15/18 09:37 Dose: 80 mls/hr Naloxone HCl 0.4 mg/ Potassium (Chloride/Dextrose/Sod Cl) 1,001 mls @ 80.08 mls /hr IV ASDIRECTED [facility] Last Admin: 02/16/18 04:38 Dose: 80.08 mls/hr Fentanyl Citrate 2,500 mcg/ (Sodium Chloride) 250 mls @ 4 mls/hr EPIDUR TITRATE [facility]; Protocol Last Admin: 02/15/18 22:56 Dose: 4 ml/hr, 4 mls/hr Potassium Chloride/Dextrose/Sod Cl (D5 1/2 Ns W/ 20 Meq/L Kcl) 1,000 mls @ 40 mls/hr IV ASDIRECTED [facility] Last Admin: 02/17/18 10:12 Dose: 100 mls/hr Potassium Phosphate 30 mmole/ (Sodium Chloride) 160 mls @ 54 mls/hr IV Q3H [facility] Stop: 02/17/18 16:58 Last Admin: 02/17/18 16:49 Dose: 54 mls/hr Dextrose/Lactated Ringer's (Dextrose 5%-Lactated Ringers) 1,000 mls @ 100 mls/ hr IV ASDIRECTED [facility] Last Admin: 02/19/18 08:52 Dose: 100 mls/hr Lactated Ringer's (Ringers, Lactated) 1,000 mls @ 250 mls/hr IV ASDIRECTED [facility] Stop: 02/18/18 14:31 Last Admin: 02/18/18 11:28 Dose: 250 mls/hr Acetaminophen 1,000 mg/ Premix 100 mls @ 400 mls/hr IV NOW ONE Stop: 02/18/18 11:16 Last Admin: 02/18/18 11:33 Dose: Not Given Dextrose/Lactated Ringer's (Dextrose 5%-Lactated Ringers) 1,000 mls @ 75 mls/ hr IV ASDIRECTED [facility] Last Admin: 02/20/18 23:39 Dose: 75 mls/hr Potassium Phosphate 22.5 mmole (/ Sodium Chloride) 257.5 mls @ 86 mls/hr IV Q3H [facility] Stop: 02/21/18 15:59 Last Admin: 02/21/18 12:55 Dose: 86 mls/hr Dextrose/Lactated Ringer's (Dextrose 5%-Lactated Ringers) 1,000 mls @ 50 mls/ hr IV ASDIRECTED [facility] Last Admin: 02/21/18 16:35 Dose: 50 mls/hr Meropenem 500 mg/ Sodium (Chloride) 50 mls @ 100 mls/hr IV ONETIME ONE Stop: 02/22/18 04:48 Last Admin: 02/22/18 05:30 Dose: 100 mls/hr Lactated Ringer's (Ringers, Lactated) Confirm Administered Dose 1,000 mls @ as directed .ROUTE .STK-MED ONE Stop: 02/22/18 05:19 Sodium Chloride (Normal Saline) Confirm Administered Dose 250 mls @ as directed .ROUTE .STK-MED ONE Stop: 02/22/18 06:14 Norepinephrine Bitartrate 4 mg (/ Dextrose/Water) 250 mls @ 7.5 mls/hr IV TITRATE [facility]; Protocol Last Titration: 02/22/18 10:29 Dose: 11 mcg/min, 41.25 mls/hr Lactated Ringer's (Ringers, Lactated) Confirm Administered Dose 1,000 mls @ as directed .ROUTE .STK-MED ONE Stop: 02/22/18 07:12 Dextrose/Lactated Ringer's (Dextrose 5%-Lactated Ringers) 1,000 mls @ 100 mls/ hr IV ASDIRECTED [facility] Last Admin: 02/24/18 10:13 Dose: 100 mls/hr Lactated Ringer's (Ringers, Lactated) 1,000 mls @ 125 mls/hr IV ASDIRECTED [facility] Last Admin: 02/24/18 10:15 Dose: 125 mls/hr Meropenem 500 mg/ Sodium (Chloride) 50 mls @ 100 mls/hr IV Q6H [facility] Last Admin: 02/22/18 10:31 Dose: 100 mls/hr Aztreonam/Dextrose 1 gm/ (Premix) 50 mls @ 100 mls/hr IV Q8H [facility] Last Admin: 02/24/18 01:31 Dose: 100 mls/hr Lactated Ringer's (Ringers, Lactated) 1,000 mls @ 999 mls/hr IV .BOLUS ONE Stop: 02/22/18 11:00 Last Admin: 02/22/18 10:00 Dose: 999 mls/hr Lactated Ringer's (Ringers, Lactated) 750 mls @ 999 mls/hr IV ONETIME ONE Stop: 02/22/18 12:00 Last Admin: 02/22/18 11:15 Dose: 999 mls/hr Norepinephrine Bitartrate 4 mg (/ Dextrose/Water) 250 mls @ 7.5 mls/hr IV TITRATE [facility]; Protocol Stop: 02/22/18 17:30 Last Titration: 02/22/18 17:02 Dose: 12 mcg/min, 45 mls/hr Lactated Ringer's (Ringers, Lactated) 1,000 mls @ 999 mls/hr IV ASDIRECTED ONE Stop: 02/22/18 14:30 Last Admin: 02/22/18 13:30 Dose: 999 mls/hr Lactated Ringer's (Ringers, Lactated) 1,000 mls @ 500 mls/hr IV ONETIME ONE Stop: 02/22/18 16:29 Last Admin: 02/22/18 14:19 Dose: 500 mls/hr Vasopressin 100 units/ (Dextrose/Water) 255 mls @ 1.53 mls/hr IV TITRATE ANGELA; Protocol Vasopressin 100 units/ (Dextrose/Water) 255 mls @ 1.53 mls/hr IV TITRATE ANGELA; Protocol Last Titration: 02/22/18 15:57 Dose: 0.02 units/min, 3.06 mls/hr Norepinephrine Bitartrate 8 mg (/ Dextrose/Water) 500 mls @ 7.5 mls/hr IV TITRATE ANGELA; Protocol Last Titration: 02/24/18 08:50 Dose: 0 mcg/min, 0 mls/hr Lactated Ringer's (Ringers, Lactated) 1,000 mls @ 250 mls/hr IV ONETIME ONE Stop: 02/22/18 20:29 Last Infusion: 02/22/18 20:04 Dose: 125 mls/hr Magnesium Sulfate 2 gm/ Premix 50 mls @ 25 mls/hr IV Q6H ANGELA Stop: 02/23/18 17:29 Last Admin: 02/23/18 14:31 Dose: 25 mls/hr Vasopressin 40 units/ Dextrose (/Water) 100 mls @ 1.5 mls/hr IV TITRATE ANGELA; Protocol Last Titration: 02/23/18 17:02 Dose: 0 units/min, 0 mls/hr Insulin Human Regular 100 unit (/ Sodium Chloride) 101 mls @ 0.5 mls/hr IV TITRATE ANGELA; Protocol Last Titration: 02/24/18 07:49 Dose: 0 units/hr, 0 mls/hr Potassium Phosphate 22.5 mmole (/ Sodium Chloride) 107.5 mls @ 35 mls/hr IV Q3H [facility] Stop: 02/24/18 15:59 Last Admin: 02/24/18 13:01 Dose: 35 mls/hr Linezolid (Zyvox) Confirm Administered Dose 300 mls @ as directed .ROUTE .STK- MED ONE Stop: 02/25/18 11:02 Magnesium Sulfate 2 gm/ Premix 50 mls @ 25 mls/hr IV Q6H [facility] Stop: 02/26/18 04:59 Last Admin: 02/26/18 04:53 Dose: Not Given Ibuprofen (Motrin) 400 mg PO Q6H ANGELA Last Admin: 02/17/18 08:22 Dose: 400 mg Insulin Aspart (Novolog) Confirm Administered Dose 300 unit .ROUTE .STK-MED ONE Stop: 02/23/18 06:25 Last Admin: 02/23/18 06:43 Dose: 10 units Insulin Aspart (Novolog) 0 unit SUBCUT Q6H PRN; Protocol PRN Reason: MEDIUM CORRECTIONAL DOSE Last Admin: 02/23/18 12:17 Dose: 12 units Insulin Detemir (Levemir) Confirm Administered Dose 300 unit .ROUTE .STK-MED ONE Stop: 02/23/18 06:09 Last Admin: 02/23/18 06:43 Dose: 10 units Insulin Detemir (Levemir) 10 unit SUBCUT Q12H [facility] Last Admin: 02/24/18 06:11 Dose: 10 units Isosorbide Mononitrate (Imdur) 30 mg PO DAILY [facility] Last Admin: 02/21/18 08:06 Dose: 30 mg Ketamine HCl (Ketalar) 25 mg IV ASDIRECTED [facility] Ketorolac Tromethamine (Toradol) Confirm Administered Dose 60 mg .ROUTE .STK- MED ONE Stop: 02/25/18 09:07 Levothyroxine Sodium (Levothyroxine) 75 mcg PO ACBREAKFAST [facility] Last Admin: 02/21/18 07:46 Dose: 75 mcg Lidocaine HCl (Xylocaine-Mpf 1%) Confirm Administered Dose 5 ml .ROUTE .STK-MED ONE Stop: 02/14/18 12:41 Last Admin: 02/14/18 16:48 Dose: Not Given Lidocaine HCl (Xylocaine-Mpf 1%) 0.1 ml INJECT ONETIME ONE Stop: 02/14/18 12:43 Last Admin: 02/14/18 16:48 Dose: Not Given Lidocaine/Epinephrine (Xylocaine 1% With Epinephrine 1:100,000) Confirm Administered Dose 50 ml .ROUTE .STK-MED ONE Stop: 02/16/18 06:45 Last Admin: 02/16/18 07:44 Dose: 10 ml Linezolid (Zyvox) 600 mg IRR .STK-MED ONE Stop: 02/25/18 12:21 Last Admin: 02/25/18 12:20 Dose: 600 mg Magnesium Hydroxide (Milk Of Magnesia) 30 ml PO BID [facility] Stop: 02/16/18 21:01 Last Admin: 02/16/18 20:18 Dose: 30 ml Magnesium Hydroxide (Milk Of Magnesia) 30 ml PO ASDIRECTED PRN PRN Reason: * Melatonin (Melatonin) 9 mg PO BEDTIME PRN PRN Reason: Insomnia Last Admin: 02/22/18 00:39 Dose: 9 mg Meperidine HCl (Demerol) 75 mg IM ONETIME ONE Stop: 02/17/18 11:01 Last Admin: 02/17/18 11:00 Dose: 75 mg Meropenem (Merrem) Confirm Administered Dose 500 mg .ROUTE .STK-MED ONE Stop: 02/14/18 08:44 Last Admin: 02/14/18 14:30 Dose: 500 mg Meropenem (Merrem) Confirm Administered Dose 500 mg .ROUTE .STK-MED ONE Stop: 02/16/18 06:45 Last Admin: 02/16/18 07:49 Dose: 500 mg Meropenem (Merrem) Confirm Administered Dose 500 mg .ROUTE .STK-MED ONE Stop: 02/22/18 05:07 Meropenem (Merrem) Confirm Administered Dose 1,500 mg .ROUTE .STK-MED ONE Stop: 02/22/18 05:51 Meropenem (Merrem) Confirm Administered Dose 500 mg .ROUTE .STK-MED ONE Stop: 02/22/18 06:05 Last Admin: 02/22/18 06:00 Dose: 3,500 mg Meropenem (Merrem) Confirm Administered Dose 1,000 mg .ROUTE .STK-MED ONE Stop: 02/22/18 06:40 Meropenem (Merrem) 1,000 mg IRR ONETIME ONE Stop: 02/22/18 07:31 Last Admin: 02/22/18 07:30 Dose: 1,000 mg Meropenem (Merrem) Confirm Administered Dose 1,000 mg .ROUTE .STK-MED ONE Stop: 02/23/18 06:39 Last Admin: 02/23/18 10:18 Dose: 1,500 mg Methylprednisolone Sodium Succinate (Solu-Medrol) 40 mg IVPUSH Q12H [facility] Last Admin: 02/22/18 01:34 Dose: 40 mg Metoclopramide HCl (Reglan) 10 mg IVPUSH Q8H [facility] Last Admin: 02/22/18 01:34 Dose: 10 mg Naloxone HCl (Narcan) 0.1 mg IVPUSH Q5M PRN PRN Reason: RESP RATE LESS THAN 6/MINUTE Last Admin: 02/15/18 15:23 Dose: 0.1 mg Neostigmine Methylsulfate (Neostigmine) Confirm Administered Dose 5 mg .ROUTE .STK-MED ONE Stop: 02/14/18 09:36 Neostigmine Methylsulfate (Neostigmine) Confirm Administered Dose 5 mg .ROUTE .STK-MED ONE Stop: 02/22/18 04:44 Nitroglycerin (Nitrostat) 0.4 mg SL ASDIRECTED PRN PRN Reason: CHEST PAIN Ondansetron HCl (Zofran) Confirm Administered Dose 4 mg .ROUTE .STK-MED ONE Stop: 02/14/18 09:36 Ondansetron HCl (Zofran) 4 mg IVPUSH Q4H PRN PRN Reason: NAUSEA Last Admin: 02/22/18 00:43 Dose: 4 mg Ondansetron HCl (Zofran) Confirm Administered Dose 4 mg .ROUTE .STK-MED ONE Stop: 02/22/18 04:44 Pantoprazole Sodium (Protonix Iv) 40 mg IV Q24H [facility] Last Admin: 02/16/18 17:44 Dose: 40 mg Pantoprazole Sodium (Protonix) 40 mg PO ACBREAKFAST [facility] Last Admin: 02/22/18 10:05 Dose: Not Given Trans-Derm Scop (Patch Removal) 0 each TOP ONETIME ONE Stop: 02/16/18 14:01 Last Admin: 02/16/18 15:05 Dose: Not Given Phenylephrine HCl (Manuel-Synephrine) Confirm Administered Dose 10 mg .ROUTE .STK- MED ONE Stop: 02/22/18 05:40 Piperacillin Sod/Tazobactam Sod (Zosyn) 3.375 gm .ROUTE .STK-MED ONE Stop: 02/25/18 13:01 Prednisone (Prednisone) 2.5 mg PO DAILY [facility] Last Admin: 02/18/18 09:45 Dose: 2.5 mg Prednisone (Prednisone) 10 mg PO DAILY [facility] Last Admin: 02/18/18 11:38 Dose: 10 mg Propofol (Diprivan 20 Ml) Confirm Administered Dose 200 mg .ROUTE .STK-MED ONE Stop: 02/14/18 09:36 Propofol (Diprivan 20 Ml) Confirm Administered Dose 200 mg .ROUTE .STK-MED ONE Stop: 02/16/18 07:10 Propofol (Diprivan 20 Ml) Confirm Administered Dose 200 mg .ROUTE .K-MED ONE Stop: 02/22/18 04:44 Propofol (Diprivan 20 Ml) Confirm Administered Dose 200 mg .ROUTE .K-MED ONE Stop: 02/23/18 06:59 Rocuronium [place] (Zemuron) Confirm Administered Dose 50 mg .ROUTE .[facility] ONE Stop: 02/14/18 09:36 Rocuronium [place] (Zemuron) Confirm Administered Dose 50 mg .ROUTE .K-MED ONE Stop: 02/22/18 04:44 Rocuronium [place] (Zemuron) Confirm Administered Dose 50 mg .ROUTE .K-MED ONE Stop: 02/23/18 06:59 Rocuronium [place] (Zemuron) Confirm Administered Dose 50 mg .ROUTE .K-MED ONE Stop: 02/25/18 09:02 Scopolamine (Transderm-Scop) 1.5 mg TOP ONETIME ONE Stop: 02/14/18 08:16 Last Admin: 02/14/18 08:32 Dose: 1.5 mg Senna (Senna) 8.6 mg PO BEDTIME [facility] Last Admin: 02/15/18 21:24 Dose: 8.6 mg Senna (Senna) 17.2 mg PO BEDTIME [facility] Last Admin: 02/21/18 20:54 Dose: 17.2 mg Succinylcholine Chloride (Quelicin) Confirm Administered Dose 200 mg .ROUTE .STK -MED ONE Stop: 02/14/18 09:36 Succinylcholine Chloride (Quelicin) Confirm Administered Dose 200 mg .ROUTE .[facility] -MED ONE Stop: 02/22/18 04:44 Theophylline (Pablito-24) 400 mg PO DAILY [facility] Last Admin: 02/19/18 09:31 Dose: 400 mg Tramadol HCl (Ultram) 50 mg PO Q6H PRN PRN Reason: PAIN Last Admin: 02/17/18 04:00 Dose: 50 mg Vancomycin HCl (Vancomycin) 1 gm IV .PHARMACY TO DOSE [facility] Stop: 02/24/18 12:00 - Exam Quality Assessment: Supplemental Oxygen, Central Line/PICC, Urine Catheter, Restraints General: No Acute Distress. No: Alert, Oriented, Cooperative HEENT: Pupils Equal Neck: Supple, Trachea Midline Lungs: Normal Respiratory Effort, Decreased Breath Sounds (both bases), Crackles (both bases, mild) Cardiovascular: Regular Rhythm, Tachycardia GI/Abdominal Exam: Soft, No Distention, Abnormal Bowel Sounds (hypoactive) Extremities: Pedal Edema, Other (pitting edema both arms) Skin: Warm, Dry Psy/Mental Status: No: Alert, Anxious Consult PN Assessment/Plan Procedures: Procedures AGENT NOS ASSAY W/OPTIC (01/19/18) AIRWAY INHALATION TREATMENT (01/19/18) ASSAY OF AMYLASE (01/02/18) ASSAY OF LIPASE (01/19/18) ASSAY OF MAGNESIUM (01/19/18) ASSAY OF PHOSPHORUS (01/19/18) ASSAY OF SERUM POTASSIUM (01/19/18) ASSAY THYROID STIM HORMONE (01/19/18) C DIFF AMPLIFIED PROBE (01/19/18) C-REACTIVE PROTEIN (01/19/18) CARDIOVASCULAR STRESS TEST (04/12/16) CHEST WALL MANIPULATION (12/19/17) CHEST WALL MANIPULATION (12/19/17) COMP SCREEN MAMMOGRAM ADD-ON (04/05/15) COMPLETE CBC AUTOMATED (01/19/18) COMPLETE CBC W/AUTO DIFF WBC (01/19/18) COMPREHEN METABOLIC PANEL (01/19/18) CT ABD & PELV W/CONTRAST (01/19/18) CT ABD & PELVIS W/O CONTRAST (01/02/18) CULTURE AEROBIC IDENTIFY (12/19/17) CULTURE OTHR SPECIMN AEROBIC (12/19/17) CULTURE SCREEN ONLY (10/09/17) EGD BIOPSY SINGLE/MULTIPLE (10/09/17) EMERGENCY DEPT VISIT (01/19/18) EMERGENCY DEPT VISIT (01/19/18) HT MUSCLE IMAGE SPECT MULT (04/12/16) HYDRATE IV INFUSION ADD-ON (01/19/18) LEUKOCYTE ASSESSMENT FECAL (01/02/18) MANUAL THERAPY 1/> REGIONS (02/12/18) METABOLIC PANEL TOTAL CA (01/19/18) NEUROMUSCULAR REEDUCATION (12/17/17) OVA AND PARASITES SMEARS (01/19/18) PROTHROMBIN TIME (01/19/18) PT EVAL MOD COMPLEX 30 MIN (08/13/17) ROUTINE VENIPUNCTURE (01/19/18) SMEAR COMPLEX STAIN (01/19/18) SMEAR GRAM STAIN (12/19/17) STOOL CULTR AEROBIC BACT EA (01/19/18) THER/PROPH/DIAG INJ IV PUSH (01/19/18) THERAPEUTIC EXERCISES (12/17/17) TISSUE EXAM BY PATHOLOGIST (10/09/17) TX/PRO/DX INJ SAME DRUG DAIRY SCIENTIST (01/02/18) ULTRASOUND THERAPY (02/12/18) X-RAY EXAM ABDOMEN 2 VIEWS (01/02/18) X-RAY EXAM OF SHOULDER (07/26/17) Problem List Initiated/Reviewed/Updated: Yes My Orders Last 24 Hours: My Active Orders 02/25/18 08:37 HEPARIN INDUCED PLATELET W/RFX Routine 02/25/18 18:00 Blood Glucose Check, Bedside [RC] Q6H 02/26/18 12:00 Furosemide [Lasix] 20 mg IV ASDIRECTED Plan: ASSESSMENT AND RECOMMENDATIONS INTRA-ABDOMINAL INFECTION WITH SEPSIS - Intra-abdominal cultures growing enterococcus and yeast. Blood pressure has remained stable. Still mildly tachycardic. Did well with surgery for abdominal washout yesterday. -Continue current antibiotic therapy with meropenem -Discontinue as active -IV vancomycin and fluconazole -Judicious IV fluid use HYPOXIC RESPIRATORY FAILURE - likely secondary to COPD and possible contribution from volume overload. On minimal ventilator support at this time. Will be receiving 2 doses of furosemide today, 1 this afternoon and one tonight. -Diuresis as above -Sedation holiday today as tolerated -Spontaneous breathing trials daily -Continue nebulizer therapy Anemia due to acute illness and blood loss - hemoglobin down to 8.8 today. 1 unit of packed red blood cells has been ordered by the surgical team. -I would recommend avoiding transfusion unless hemoglobin is less than 8 or there is active bleeding or hemodynamic instability Severe thrombocytopenia - no evidence for bleeding at this time. Suspect combination of sepsis and possible disseminated intravascular coagulation. Heparin has also been discontinued. Platelet has improved after transfusion yesterday. No evidence for bleeding at this time. -Transfuse if less than 10,000 or bleeding -Workup for heparin-induced thrombocytopenia pending -Daily laboratory studies TYPE 2 DIABETES MELLITUS - sugars have stabilized. -Discontinue long acting insulin -Monitor sugars, restart insulin if indicated ACUTE KIDNEY INJURY - renal function has been stable after volume status was optimized. -Continue closely monitor urine output and renal function Holger Zambrano M.D.
[2018-02-26] MEDS: Fluconazole/Normal Saline 200 MG in Premix Bag 1 BAG IV SCH (09:34)
--- NOTE | 2018-02-26 09:56 | OR ---
DATE OF PROCEDURE: 02/14/2018 PREOPERATIVE DIAGNOSES: 1. Recurrent sigmoid colon diverticulitis. 2. Rectal prolapse. POSTOPERATIVE DIAGNOSES: 1. Recurrent sigmoid colon diverticulitis with persistent focal pericolonic abscess. 2. Rectal prolapse. OPERATIVE PROCEDURE: Exploratory laparotomy with: 1. Drainage of pericolonic abscess (76734) 2. Rectosigmoid colon resection with coloproctostomy and proctopexy (20324). ANESTHESIA: General plus epidural. MERCHANDISE HANDLER: 1. Krystal Bernal PA-C. 2. AMAURY Arreguin. 3. AMAURY Del Cid. INDICATION FOR PROCEDURE: This is an 82-year-old female presenting after recent hospitalization with recurrent sigmoid colon diverticulitis. This was associated with recurrent problems with rectal prolapse. I had a lengthy discussion with the patient and family members who were present. The plan will be to proceed with sigmoid colon resection. Patient at some point had considered colonoscopy, but the area seen on CT scan is problematic in terms of potential diagnoses and would be within the resected region, and we are electing to forego the colonoscopy at this time. Given that, the plan is to proceed with an open laparotomy with sigmoid colon resection and with this a proctopexy, likely using a mesh sling over the upper rectum as well, to complete the proctopexy. Potential risks of the procedure including bleeding, infection, leaks from the colorectal anastomosis, possible recurrence of the rectal prolapse, as well as possibility of cardiopulmonary, septic, or hemorrhagic complications leading to were all discussed, and the patient wishes to proceed. DETAILS OF PROCEDURE: The patient was taken to the operating room and placed in a supine position, after initially having an epidural catheter placed. After general endotracheal anesthesia was induced and epidural catheter infusions initiated, she was placed in a lithotomy position, a Vega catheter inserted, and the abdomen prepped and draped. A midline incision from the umbilicus downward to the pubis was made, carried down through the skin and subcutaneous tissue, fascia, and peritoneum. Upon entering the peritoneal cavity, the small bowel was retracted upward. The patient did have a quite a bit of induration of the mid and distal sigmoid colon areas. As this was retracted upward, a pericolonic abscess was encountered. Cultures of this were obtained. The volume of abscess appeared to be roughly in the range of 2 tablespoons of a creamy purulent material. This was all well- contained and evacuated at that point. The peritoneal reflection of the distal descending colon and sigmoid colon were then divided, allowing mobilization of those areas downward. The colon was then divided at a point just proximal to the upper aspect of the gross inflammation with a HANNAH purple load. The underlying mesentery was then divided with a combination of vascular and mesenteric loads down to a point in the rectum where the inflammation once again became minimal. This area was then divided with a HANNAH curved black load, and the specimen delivered from the field. At this point, the plane of dissection behind the rectum was established, and this was dissected down bluntly to the level of the levator muscles, i.e. the entire length of the rectum. This allowed this area to be pulled upward. The patient did have some palpable edema in the distalmost rectum, consistent with recurrent problems with a prolapse. At this point, the coloproctostomy was then accomplished. Initially we tried placing the anvil of a 28 mm EEA stapler into the distal divided sigmoid colon with spasm, and even with waiting a period of time, this never opened up sufficiently to allow that to be placed. Given this, we then placed an EEA 25 mm anvil, and this was then easily placed into the divided distal sigmoid colon, which was then re-stapled with a purple load and the anvil brought out through the most dependent portion of the bowel. Good blood supply was confirmed. The main body of the stapler was then brought up rectally to the level of the divided rectum and the 2 components of the stapler united, and the coloproctostomy was thus accomplished. Upon removal of the stapler, double donuts of mucosa were noted within it. The area was then inspected for any air leaks with injection of air into the rectum with the colonoscope and with that area being submerged with antibiotic-containing saline solution. No leaks or problems were noted. The fluid was then evacuated. The anastomosis reinforced with some interrupted 3-0 Vicryl seromuscular stitch on all except the posterior-most aspect. At this point, the rectum was then pulled up. A sling of Prolene mesh was then placed, this being a strip of Prolene mesh measuring around 2 cm in width. This was initially secured to the area of the sacrum to the left of the rectum. This was draped around very loosely toward the right and fixed there. Both places of fixation were accomplished with titanium tacking screws. With the rectum then being pulled upward, the rectal wall was affixed to the mesh with seromuscular 3-0 Vicryl stitch as well, and at that point, no further problems noted. The abdomen was irrigated with meropenem containing saline solution. Two Kenneth Banda drains, one on the left and one on the right side, were placed and positioned across the anastomosis and from there into the pelvis. The midline fascia was then approximated with a #2 Vicryl stitch, and the skin and subcutaneous tissue were felt to be at high risk for wound infection, if a primary closure was undertaken. Given this, this was packed open for a planned delayed primary closure in 48 hours. Drains were affixed with some 3-0 Vicryl stitch and patient taken to the recovery room in satisfactory condition. Physician preschool teacher assistant, Krystal Bernal PA-C, played an essential role in assisting in this case, helping to position the patient, retract structures as needed, as well as suturing and cutting sutures when indicated. Her presence improved patient's safety and decreased operative time. Robert Pate MD /[id number]
--- NOTE | 2018-02-26 09:56 | CR ---
Chest 1V Frontal INDICATION: INTUBATED COMPARISON: 02/25/2018 FINDINGS: AP portable chest. ET tube remains in good position mid trachea. Central line remains in place. Pacer device. Given upright position, probably no change in pleural effusions. Less vascular congestion seen on carol shipman's study.
[2018-02-26] MEDS: Potassium Phosphates 22.5 MMOLE in Sodium Chloride 0.9% 100 ML IV SCH ×2 (10:59→13:23)
[2018-02-26] MEDS ORDERED: Furosemide 20 MG/2 ML VIAL IV SCH ×2 (12:00)
[2018-02-26] MEDS: Pantoprazole 40 MG Vial IV SCH (14:52)
[2018-02-26] MEDS: Dextrose 5%-Lactated Ringers 1,000 ML IV SCH (22:25)
[2018-02-26] MEDS ORDERED: Acetaminophen 1,000 MG in Premix Bag 1 BAG IV ONE (22:26)
[2018-02-27] MEDS: Budesonide 0.5 MG/2 ML Neb Susp INH SCH ×2 (07:14→21:15)
[2018-02-27] MEDS: Albuterol/Ipratropium 3.0-0.5 MG/3 ML Neb Soln INH SCH ×4 (07:14→21:15)
[2018-02-27] MEDS ORDERED: Bupivacaine 0.5% 50 ML MDV ONE (07:43)
[2018-02-27] MEDS ORDERED: Lidocaine 1% with EPINEPHrine 1:100,000 50 ML MDV ONE (07:43)
[2018-02-27] MEDS ORDERED: Meropenem 500 MG SDV ONE (07:43)
[2018-02-27] MEDS: FENTANYL PATCH CHECK TOP SCH (09:00)
--- NOTE | 2018-02-27 09:10 | CR ---
Chest 1V Frontal INDICATION: intubated FINDINGS: Comparison 02/26/2018. Left-sided pacemaker in place. Enteric tube has been removed. ETT in g ood position. Right central line with tip in the upper SVC. Surgical drains in the upper abdomen. No change in the pleural effusions. Slight increase in pulmonary venous hypertension since yesterday's e xam.
[2018-02-27] MEDS ORDERED: Midazolam 1 MG/ML 2 ML SDV ONE (09:29)
[2018-02-27] MEDS ORDERED: Midazolam 1 MG/ML 2 ML SDV IV ONE ×2 (09:30→10:00)
[2018-02-27] MEDS: Fluconazole/Normal Saline 200 MG in Premix Bag 1 BAG IV SCH (10:41)
[2018-02-27] MEDS: Potassium Phosphates 22.5 MMOLE in Sodium Chloride 0.9% 100 ML IV SCH ×2 (11:45→14:21)
[2018-02-27] MEDS ORDERED: Furosemide 20 MG/2 ML VIAL IV ONE (12:00)
[2018-02-27] MEDS ORDERED: Furosemide 20 MG/2 ML VIAL IV SCH (12:00)
--- NOTE | 2018-02-27 13:45 | PCM.CONSN ---
- General Info Date of Service: 02/27/18 - Review of Systems General: Reports: Fever Systems Review Comment:: Overnight the patient had another fever. There is no fluctuation in heart rate or blood pressure at the time of the fever. One additional blood culture was obtained at this time. She remains on broad-spectrum antibiotics. Cultures have been negative. Still requiring only minimal ventilator support. This morning she is more alert and is following commands. She will be going for a delayed primary closure later this morning. - Patient Data Vitals - Most Recent: Last Vital Signs Temp 36.9 C 02/27/18 05:41 Pulse 60 02/27/18 12:00 Resp 15 02/27/18 12:00 BP 118/49 L 02/27/18 12:00 Pulse Ox 100 02/27/18 12:00 Weight - Most Recent: 45.314 kg I&O - Last 24 Hours: Intake & Output 02/26/18 02/27/18 02/27/18 22:59 06:59 14:59 Intake Total 1400 769 Output Total 2080 895 107 [facility] -[phone] Lab Results Last 24 Hours: Laboratory Results - last 24 hr 02/27/18 02/27/18 02/27/18 Range/Units 04:35 04:35 04:35 WBC 3.7 L (4.5-11.0) K/uL RBC 3.15 L (3.30-5.50) M/uL Hgb 9.0 L (12.0-15.0) g/dL Hct 27.0 L (36.0-48.0) % MCV 86 (80-98) fL MCH 29 (27-31) pg MCHC 33 (32-36) % Plt Count 31 L (150-400) K/uL Puncture Site L brachial ABG pH 7.543 H (7.350-7.450) ABG pCO2 29.3 L (35.0-42.0) mmHg ABG pO2 82.9 (75.0-100.0) mmHg ABG HCO3 25.2 (22.0-26.0) mmol/L ABG Total CO2 23.2 (21.0-25.0) mmol/L ABG O2 Saturation 97.4 (95.0-98.0) % ABG O2 Content 12.1 L (15.0-23.0) %vol ABG Base Excess 3.1 mm/L ABG Hemoglobin 9.0 L (12.0-16.0) g/dL ABG Oxyhemoglobin 94.7 % ABG Carboxyhemoglobin 2.4 H (0.0-1.6) % ABG Methemoglobin 0.4 % O2 Delivery Device Ventilator Oxygen Flow Rate L Sodium 142 (140-148) mmol/L Potassium 3.6 (3.6-5.2) mmol/L Chloride 107 (100-108) mmol/L Carbon Dioxide 25 (21-32) mmol/L Anion Gap 9.9 (5.0-14.0) mmol/L BUN 14 (7-18) mg/dL Creatinine 0.8 (0.6-1.0) mg/dL Est Cr Clr Drug Dosing 38.94 mL/min Estimated GFR (MDRD) > 60 (>60) Glucose 101 (74-106) mg/dL Lactic Acid (0.4-2.0) mmol/L Calcium 7.1 L (8.5-10.1) mg/dL Phosphorus 3.7 (2.5-4.9) mg/dL Magnesium 1.9 (1.8-2.4) mg/dL Total Bilirubin 2.0 H (0.2-1.0) mg/dL AST 58 H (15-37) U/L ALT 22 (12-78) U/L Alkaline Phosphatase 60 (46-116) U/L Total Protein 3.6 L (6.4-8.2) g/dL Albumin 1.7 L (3.4-5.0) g/dL Globulin 1.9 L (2.3-3.5) g/dL Albumin/Globulin Ratio 0.9 L (1.2-2.2) Vancomycin Trough (10.0-20.0) ug/mL 02/27/18 02/27/18 Range/Units 04:35 10:55 WBC (4.5-11.0) K/uL RBC (3.30-5.50) M/uL Hgb (12.0-15.0) g/dL Hct (36.0-48.0) % MCV (80-98) fL MCH (27-31) pg MCHC (32-36) % Plt Count (150-400) K/uL Puncture Site ABG pH (7.350-7.450) ABG pCO2 (35.0-42.0) mmHg ABG pO2 (75.0-100.0) mmHg ABG HCO3 (22.0-26.0) mmol/L ABG Total CO2 (21.0-25.0) mmol/L ABG O2 Saturation (95.0-98.0) % ABG O2 Content (15.0-23.0) %vol ABG Base Excess mm/L ABG Hemoglobin (12.0-16.0) g/dL ABG Oxyhemoglobin % ABG Carboxyhemoglobin (0.0-1.6) % ABG Methemoglobin % O2 Delivery Device Oxygen Flow Rate L Sodium (140-148) mmol/L Potassium (3.6-5.2) mmol/L Chloride (100-108) mmol/L Carbon Dioxide (21-32) mmol/L Anion Gap (5.0-14.0) mmol/L BUN (7-18) mg/dL Creatinine (0.6-1.0) mg/dL Est Cr Clr Drug Dosing mL/min Estimated GFR (MDRD) (>60) Glucose (74-106) mg/dL Lactic Acid 1.9 (0.4-2.0) mmol/L Calcium (8.5-10.1) mg/dL Phosphorus (2.5-4.9) mg/dL Magnesium (1.8-2.4) mg/dL Total Bilirubin (0.2-1.0) mg/dL AST (15-37) U/L ALT (12-78) U/L Alkaline Phosphatase (46-116) U/L Total Protein (6.4-8.2) g/dL Albumin (3.4-5.0) g/dL Globulin (2.3-3.5) g/dL Albumin/Globulin Ratio (1.2-2.2) Vancomycin Trough 12.3 (10.0-20.0) ug/mL Kash Results Last 24 Hours: Microbiology 02/25/18 12:30 Gram Stain - Final Abdominal Fluid - Drainage Wound Culture - Preliminary Anaerobic Culture - Preliminary NO GROWTH AFTER 1 DAY 02/26/18 07:09 Aerobic Blood Culture - Preliminary Blood - Arm, Right NO GROWTH AFTER 1 DAY Anaerobic Blood Culture - Preliminary NO GROWTH AFTER 1 DAY 02/26/18 06:40 Aerobic Blood Culture - Preliminary Blood - Central Line NO GROWTH AFTER 1 DAY Anaerobic Blood Culture - Preliminary NO GROWTH AFTER 1 DAY Med Orders - Current: Current Medications Albuterol/Ipratropium (Duoneb 3.0-0.5 Mg/3 Ml) 3 ml INH ASDIRECTED PRN PRN Reason: RESP Last Admin: 02/17/18 18:57 Dose: 3 ml Albuterol/Ipratropium (Duoneb 3.0-0.5 Mg/3 Ml) 3 ml INH QIDRT [facility] Last Admin: 02/27/18 10:52 Dose: 3 ml Budesonide (Pulmicort) 0.5 mg INH BIDRT [facility] Last Admin: 02/27/18 07:14 Dose: 0.5 mg Dextrose (Glutose 15) 15 gm PO ASDIRECTED PRN PRN Reason: HYPOGLYCEMIA Dextrose/Water (Dextrose 50% In Water) 50 ml IVPUSH ASDIRECTED PRN PRN Reason: HYPOGLYCEMIA Glucagon (Glucagen) 1 mg IM ASDIRECTED PRN PRN Reason: HYPOGLYCEMIA Hydromorphone HCl (Dilaudid Manager Code 15 Mg In Ns 30 Ml) 15 mg IV ASDIRECTED [facility]; Protocol Last Admin: 02/25/18 08:34 Dose: 15 mg Meropenem 1 gm/ Sodium (Chloride) 50 mls @ 100 mls/hr IV Q12H [facility] Last Admin: 02/27/18 04:45 Dose: 100 mls/hr Albumin Human (Albumin 25%) 25 gm in 100 mls @ 25 mls/hr IV Q24H [facility] Stop: 02/27/18 16:59 Last Admin: 02/26/18 12:43 Dose: 25 mls/hr Fluconazole/Sodium Chloride (200 mg/ Premix) 100 mls @ 100 mls/hr IV Q24H [facility] Last Admin: 02/27/18 10:41 Dose: 100 mls/hr Dextrose/Lactated Ringer's (Dextrose 5%-Lactated Ringers) 1,000 mls @ 50 mls/ hr IV ASDIRECTED [facility] Last Admin: 02/26/18 22:25 Dose: 50 mls/hr Potassium Phosphate 22.5 mmole (/ Sodium Chloride) 107.5 mls @ 35 mls/hr IV Q3H [facility] Stop: 02/27/18 15:29 Last Admin: 02/27/18 11:45 Dose: 35 mls/hr Vancomycin HCl 1.25 gm/ Sodium (Chloride) 250 mls @ 167 mls/hr IV Q24H [facility] Last Admin: 02/27/18 12:26 Dose: 167 mls/hr Naloxone HCl (Narcan) 0.1 mg IV ASDIRECTED PRN PRN Reason: decreased respiratory rate Pantoprazole Sodium (Protonix Iv) 40 mg IV Q24H [facility] Last Admin: 02/26/18 14:52 Dose: 40 mg Discontinued Medications Acetaminophen (Tylenol Extra Strength) 1,000 mg PO ONETIME ONE Stop: 02/14/18 08:16 Last Admin: 02/14/18 08:31 Dose: 1,000 mg Acetaminophen (Tylenol) 650 mg PO Q6H [facility] Last Admin: 02/22/18 08:00 Dose: Not Given Albuterol/Ipratropium (Duoneb 3.0-0.5 Mg/3 Ml) 3 ml NEB ONETIME ONE Stop: 02/14/18 09:46 Last Admin: 02/14/18 12:32 Dose: 3 ml Allopurinol (Zyloprim) 150 mg PO DAILY [facility] Last Admin: 02/21/18 08:06 Dose: 150 mg Alvimopan (Entereg) 12 mg PO ONETIME ONE Stop: 02/14/18 08:16 Last Admin: 02/14/18 08:31 Dose: 12 mg Alvimopan (Entereg) 12 mg PO BID [facility] Stop: 02/21/18 09:01 Last Admin: 02/21/18 08:05 Dose: 12 mg Aspirin (Halfprin) 81 mg PO DAILY [facility] Last Admin: 02/22/18 09:00 Dose: Not Given Aztreonam (Azactam) Confirm Administered Dose 1 gm .ROUTE .STK-MED ONE Stop: 02/22/18 06:21 Last Admin: 02/22/18 06:20 Dose: 2 gm Aztreonam (Azactam) Confirm Administered Dose 1 gm .ROUTE .STK-MED ONE Stop: 02/22/18 06:21 Bisacodyl (Dulcolax) 10 mg PO BID [facility] Last Admin: 02/22/18 09:00 Dose: Not Given Bisacodyl (Dulcolax) 10 mg RECTAL TID [facility] Last Admin: 02/21/18 21:01 Dose: 10 mg Bisacodyl (Dulcolax) 10 mg RECTAL ONETIME ONE Stop: 02/21/18 10:01 Last Admin: 02/21/18 09:37 Dose: Not Given Bupivacaine HCl (Marcaine 0.5%) Confirm Administered Dose 50 ml .ROUTE .STK-MED ONE Stop: 02/16/18 06:45 Last Admin: 02/16/18 07:44 Dose: 10 ml Bupivacaine HCl (Marcaine 0.5%) Confirm Administered Dose 50 ml .ROUTE .STK-MED ONE Stop: 02/27/18 07:44 Last Admin: 02/27/18 11:08 Dose: 16.5 ml Carvedilol (Coreg) 3.125 mg PO BIDMEALS [facility]GELA Last Admin: 02/21/18 17:39 Dose: 3.125 mg Cefoxitin Sodium (Mefoxin) Confirm Administered Dose 2 gm .ROUTE .STK-MED ONE Stop: 02/14/18 08:44 Ropivacaine 25 ml/Dexamethasone 8 mg/Epinephrine HCl 0.4 mg/ Sodium Chloride 52.6 ml 0 ml NERVRT ASDIRECTED [facility] Neomycin/Polymyxin 1 ml/ (Sodium Chloride 500 ml) 0 ml IRR ONETIME ONE Stop: 02/14/18 08:16 Last Admin: 02/14/18 08:35 Dose: 750 irr Ropivacaine 25 ml/Dexamethasone 8 mg/Epinephrine HCl 0.4 mg/ Sodium Chloride 52.6 ml 0 ml NERVRT ASDIRECTED [facility] Last Admin: 02/16/18 07:59 Dose: 80 syringe Dexamethasone (Dexamethasone) Confirm Administered Dose 4 mg .ROUTE .STK-MED ONE Stop: 02/14/18 09:36 Dexamethasone (Dexamethasone) Confirm Administered Dose 4 mg .ROUTE .STK-MED ONE Stop: 02/22/18 04:44 Dextrose/Water (Dextrose 50% In Water) 25 ml IVPUSH ONETIME ONE Stop: 02/25/18 02:21 Last Admin: 02/25/18 02:28 Dose: 25 ml Diphenhydramine HCl (Benadryl) 25 mg IVPUSH Q6H PRN PRN Reason: Itching Last Admin: 02/14/18 15:58 Dose: 25 mg Ephedrine Sulfate (Ephedrine Sulfate) Confirm Administered Dose 50 mg .ROUTE .STK-MED ONE Stop: 02/14/18 13:50 Ephedrine Sulfate (Ephedrine Sulfate) Confirm Administered Dose 50 mg .ROUTE .STK-MED ONE Stop: 02/22/18 05:33 Erythromycin Ethylsuccinate (Eryped 400) 250 mg NGTUBE Q6H [facility] Last Admin: 02/22/18 04:26 Dose: Not Given Fentanyl (Sublimaze) Confirm Administered Dose 250 mcg .ROUTE .STK-MED ONE Stop: 02/14/18 09:36 Fentanyl (Sublimaze) Confirm Administered Dose 100 mcg .ROUTE .STK-MED ONE Stop: 02/16/18 07:10 Fentanyl (Sublimaze) Confirm Administered Dose 250 mcg .ROUTE .STK-MED ONE Stop: 02/22/18 04:44 Fentanyl (Duragesic) Confirm Administered Dose 12 mcg .ROUTE .STK-MED ONE Stop: 02/22/18 05:42 Last Admin: 02/22/18 05:51 Dose: 12 mcg Fentanyl (Duragesic) 12 mcg TRDERM Q72H [facility] Last Admin: 02/25/18 06:37 Dose: 12 mcg Fentanyl (Sublimaze) Confirm Administered Dose 100 mcg .ROUTE .STK-MED ONE Stop: 02/23/18 07:51 Fentanyl (Sublimaze) Confirm Administered Dose 250 mcg .ROUTE .STK-MED ONE Stop: 02/25/18 09:02 Furosemide (Lasix) 40 mg PO DAILY [facility] Last Admin: 02/18/18 09:45 Dose: 40 mg Furosemide (Lasix) 20 mg IVPUSH ONETIME STA Stop: 02/17/18 20:03 Last Admin: 02/17/18 20:30 Dose: 20 mg Furosemide (Lasix) 40 mg IVPUSH NOW ONE Stop: 02/17/18 21:33 Last Admin: 02/17/18 21:53 Dose: 40 mg Furosemide (Lasix) 20 mg IVPUSH NOW ONE Stop: 02/21/18 10:01 Last Admin: 02/21/18 09:50 Dose: 20 mg Furosemide (Lasix) 20 mg IV ASDIRECTED [facility] Stop: 02/26/18 23:00 Last Admin: 02/26/18 11:21 Dose: 20 mg Furosemide (Lasix) 10 mg IV ASDIRECTED [facility] Stop: 02/27/18 16:00 Furosemide (Lasix) 20 mg IV ONETIME ONE Stop: 02/27/18 12:01 Glucagon (Glucagen) Confirm Administered Dose 1 mg .ROUTE .STK-MED ONE Stop: 02/14/18 14:26 Glycopyrrolate (Robinul) Confirm Administered Dose 1 mg .ROUTE .STK-MED ONE Stop: 02/14/18 09:36 Glycopyrrolate (Robinul) Confirm Administered Dose 1 mg .ROUTE .STK-MED ONE Stop: 02/22/18 04:44 Heparin Sodium (Porcine) (Heparin Lock Flush 100 Units/Ml) Confirm Administered Dose 500 units .ROUTE .STK-MED ONE Stop: 02/22/18 06:05 Last Admin: 02/22/18 08:30 Dose: 500 units Heparin Sodium (Porcine) (Heparin Sodium) Confirm Administered Dose 5,000 units .ROUTE .STK-MED ONE Stop: 02/22/18 07:34 Heparin Sodium (Porcine) (Heparin Sodium) Confirm Administered Dose 5,000 units .ROUTE .STK-MED ONE Stop: 02/22/18 09:11 Last Admin: 02/22/18 10:43 Dose: Not Given Hydromorphone HCl (Dilaudid Manager Code 15 Mg In Ns 30 Ml) 0 mg IV ASDIRECTED PRN; Protocol PRN Reason: [employer] PAIN CONTROL Last Admin: 02/19/18 06:32 Dose: 15 mg Hydromorphone HCl (Dilaudid Manager Code 15 Mg In Ns 30 Ml) Confirm Administered Dose 15 mg IV .STK-MED ONE Stop: 02/17/18 10:18 Last Admin: 02/17/18 10:31 Dose: Not Given Hydroxyzine HCl (Vistaril) 0 mg IM Q4H PRN PRN Reason: PAIN Last Admin: 02/22/18 01:27 Dose: 75 mg Hydroxyzine HCl (Vistaril) 75 mg IM ONETIME ONE Stop: 02/17/18 11:01 Last Admin: 02/17/18 11:00 Dose: 75 mg Dextrose/Lactated Ringer's (Dextrose 5%-Lactated Ringers) 1,000 mls @ 100 mls/ hr IV ASDIRECTED [facility] Last Admin: 02/14/18 12:44 Dose: 100 mls/hr Meropenem 500 mg/ Sodium (Chloride) 50 mls @ 100 mls/hr IV ONETIME ONE Stop: 02/14/18 10:14 Last Admin: 02/14/18 12:59 Dose: 100 mls/hr Fentanyl 2,500 mcg/ Sodium (Chloride) 250 mls @ 0 mls/hr EPIDUR TITRATE [facility]GELA; Protocol Fentanyl Citrate 2,500 mcg/ (Sodium Chloride) 250 mls @ 0 mls/hr EPIDUR TITRATE [facility]GELA; Protocol Last Admin: 02/15/18 15:05 Dose: 8 mls/hr, 8 mls/hr Lactated Ringer's (Ringers, Lactated) Confirm Administered Dose 1,000 mls @ as directed .ROUTE .K-MED ONE Stop: 02/14/18 14:38 Dextrose/Lactated Ringer's (Dextrose 5%-Lactated Ringers) 1,000 mls @ 100 mls/ hr IV ASDIRECTED ANGELA Dextrose/Lactated Ringer's (Dextrose 5%-Lactated Ringers) 1,000 mls @ 150 mls/ hr IV ASDIRECTED [facility] Last Admin: 02/15/18 02:48 Dose: 150 mls/hr Cefoxitin Sodium 2 gm/ Sodium (Chloride) 50 mls @ 100 mls/hr IV Q6H [facility] Last Admin: 02/17/18 08:48 Dose: 100 mls/hr Potassium Chloride/Dextrose/Sod Cl (D5 1/2 Ns W/ 20 Meq/L Kcl) 1,000 mls @ 80 mls/hr IV ASDIRECTED [facility] Last Admin: 02/15/18 09:37 Dose: 80 mls/hr Naloxone HCl 0.4 mg/ Potassium (Chloride/Dextrose/Sod Cl) 1,001 mls @ 80.08 mls /hr IV ASDIRECTED [facility] Last Admin: 02/16/18 04:38 Dose: 80.08 mls/hr Fentanyl Citrate 2,500 mcg/ (Sodium Chloride) 250 mls @ 4 mls/hr EPIDUR TITRATE ANGELA; Protocol Last Admin: 02/15/18 22:56 Dose: 4 ml/hr, 4 mls/hr Potassium Chloride/Dextrose/Sod Cl (D5 1/2 Ns W/ 20 Meq/L Kcl) 1,000 mls @ 40 mls/hr IV ASDIRECTED [facility]GELA Last Admin: 02/17/18 10:12 Dose: 100 mls/hr Potassium Phosphate 30 mmole/ (Sodium Chloride) 160 mls @ 54 mls/hr IV Q3H [facility] Stop: 02/17/18 16:58 Last Admin: 02/17/18 16:49 Dose: 54 mls/hr Dextrose/Lactated Ringer's (Dextrose 5%-Lactated Ringers) 1,000 mls @ 100 mls/ hr IV ASDIRECTED [facility] Last Admin: 02/19/18 08:52 Dose: 100 mls/hr Lactated Ringer's (Ringers, Lactated) 1,000 mls @ 250 mls/hr IV ASDIRECTED [facility] Stop: 02/18/18 14:31 Last Admin: 02/18/18 11:28 Dose: 250 mls/hr Acetaminophen 1,000 mg/ Premix 100 mls @ 400 mls/hr IV NOW ONE Stop: 02/18/18 11:16 Last Admin: 02/18/18 11:33 Dose: Not Given Dextrose/Lactated Ringer's (Dextrose 5%-Lactated Ringers) 1,000 mls @ 75 mls/ hr IV ASDIRECTED [facility] Last Admin: 02/20/18 23:39 Dose: 75 mls/hr Potassium Phosphate 22.5 mmole (/ Sodium Chloride) 257.5 mls @ 86 mls/hr IV Q3H [facility] Stop: 02/21/18 15:59 Last Admin: 02/21/18 12:55 Dose: 86 mls/hr Dextrose/Lactated Ringer's (Dextrose 5%-Lactated Ringers) 1,000 mls @ 50 mls/ hr IV ASDIRECTED [facility] Last Admin: 02/21/18 16:35 Dose: 50 mls/hr Meropenem 500 mg/ Sodium (Chloride) 50 mls @ 100 mls/hr IV ONETIME ONE Stop: 02/22/18 04:48 Last Admin: 02/22/18 05:30 Dose: 100 mls/hr Lactated Ringer's (Ringers, Lactated) Confirm Administered Dose 1,000 mls @ as directed .ROUTE .STK-MED ONE Stop: 02/22/18 05:19 Sodium Chloride (Normal Saline) Confirm Administered Dose 250 mls @ as directed .ROUTE .STK-MED ONE Stop: 02/22/18 06:14 Norepinephrine Bitartrate 4 mg (/ Dextrose/Water) 250 mls @ 7.5 mls/hr IV TITRATE ANGELA; Protocol Last Titration: 02/22/18 10:29 Dose: 11 mcg/min, 41.25 mls/hr Lactated Ringer's (Ringers, Lactated) Confirm Administered Dose 1,000 mls @ as directed .ROUTE .STK-MED ONE Stop: 02/22/18 07:12 Dextrose/Lactated Ringer's (Dextrose 5%-Lactated Ringers) 1,000 mls @ 100 mls/ hr IV ASDIRECTED [facility]GELA Last Admin: 02/24/18 10:13 Dose: 100 mls/hr Propofol (Diprivan 100 Ml) 100 mls @ 1.46 mls/hr IV TITRATE ANGELA; Protocol Last Admin: 02/24/18 01:41 Dose: 5 mcg/kg/min, 1.46 mls/hr Lactated Ringer's (Ringers, Lactated) 1,000 mls @ 125 mls/hr IV ASDIRECTED [facility]GELA Last Admin: 02/24/18 10:15 Dose: 125 mls/hr Meropenem 500 mg/ Sodium (Chloride) 50 mls @ 100 mls/hr IV Q6H [facility] Last Admin: 02/22/18 10:31 Dose: 100 mls/hr Aztreonam/Dextrose 1 gm/ (Premix) 50 mls @ 100 mls/hr IV Q8H [facility] Last Admin: 02/24/18 01:31 Dose: 100 mls/hr Lactated Ringer's (Ringers, Lactated) 1,000 mls @ 999 mls/hr IV .BOLUS ONE Stop: 02/22/18 11:00 Last Admin: 02/22/18 10:00 Dose: 999 mls/hr Lactated Ringer's (Ringers, Lactated) 750 mls @ 999 mls/hr IV ONETIME ONE Stop: 02/22/18 12:00 Last Admin: 02/22/18 11:15 Dose: 999 mls/hr Norepinephrine Bitartrate 4 mg (/ Dextrose/Water) 250 mls @ 7.5 mls/hr IV TITRATE ANGELA; Protocol Stop: 02/22/18 17:30 Last Titration: 02/22/18 17:02 Dose: 12 mcg/min, 45 mls/hr Lactated Ringer's (Ringers, Lactated) 1,000 mls @ 999 mls/hr IV ASDIRECTED ONE Stop: 02/22/18 14:30 Last Admin: 02/22/18 13:30 Dose: 999 mls/hr Lactated Ringer's (Ringers, Lactated) 1,000 mls @ 500 mls/hr IV ONETIME ONE Stop: 02/22/18 16:29 Last Admin: 02/22/18 14:19 Dose: 500 mls/hr Vasopressin 100 units/ (Dextrose/Water) 255 mls @ 1.53 mls/hr IV TITRATE ANGELA; Protocol Vasopressin 100 units/ (Dextrose/Water) 255 mls @ 1.53 mls/hr IV TITRATE ANGELA; Protocol Last Titration: 02/22/18 15:57 Dose: 0.02 units/min, 3.06 mls/hr Norepinephrine Bitartrate 8 mg (/ Dextrose/Water) 500 mls @ 7.5 mls/hr IV TITRATE ANGELA; Protocol Last Titration: 02/24/18 08:50 Dose: 0 mcg/min, 0 mls/hr Lactated Ringer's (Ringers, Lactated) 1,000 mls @ 250 mls/hr IV ONETIME ONE Stop: 02/22/18 20:29 Last Infusion: 02/22/18 20:04 Dose: 125 mls/hr Magnesium Sulfate 2 gm/ Premix 50 mls @ 25 mls/hr IV Q6H [facility] Stop: 02/23/18 17:29 Last Admin: 02/23/18 14:31 Dose: 25 mls/hr Vasopressin 40 units/ Dextrose (/Water) 100 mls @ 1.5 mls/hr IV TITRATE ANGELA; Protocol Last Titration: 02/23/18 17:02 Dose: 0 units/min, 0 mls/hr Insulin Human Regular 100 unit (/ Sodium Chloride) 101 mls @ 0.5 mls/hr IV TITRATE ANGELA; Protocol Last Titration: 02/24/18 07:49 Dose: 0 units/hr, 0 mls/hr Albumin Human (Albumin 25%) 25 gm in 100 mls @ 25 mls/hr IV DAILY [facility] Stop: 02/27/18 12:59 Last Admin: 02/27/18 08:58 Dose: 25 mls/hr Potassium Phosphate 22.5 mmole (/ Sodium Chloride) 107.5 mls @ 35 mls/hr IV Q3H [facility] Stop: 02/24/18 15:59 Last Admin: 02/24/18 13:01 Dose: 35 mls/hr Vancomycin HCl 1 gm/ Sodium (Chloride) 250 mls @ 167 mls/hr IV Q24H [facility] Last Admin: 02/26/18 11:05 Dose: 167 mls/hr Linezolid (Zyvox) Confirm Administered Dose 300 mls @ as directed .ROUTE .STK- MED ONE Stop: 02/25/18 11:02 Magnesium Sulfate 2 gm/ Premix 50 mls @ 25 mls/hr IV Q6H [facility] Stop: 02/26/18 04:59 Last Admin: 02/26/18 03:00 Dose: 25 mls/hr Potassium Phosphate 22.5 mmole (/ Sodium Chloride) 107.5 mls @ 35 mls/hr IV Q3H [facility] Stop: 02/26/18 15:29 Last Admin: 02/26/18 13:23 Dose: 35 mls/hr Acetaminophen 1,000 mg/ Premix 100 mls @ 400 mls/hr IV NOW ONE Stop: 02/26/18 22:40 Last Admin: 02/26/18 22:43 Dose: 400 mls/hr Ibuprofen (Motrin) 400 mg PO Q6H [facility] Last Admin: 02/17/18 08:22 Dose: 400 mg Insulin Aspart (Novolog) Confirm Administered Dose 300 unit .ROUTE .STK-MED ONE Stop: 02/23/18 06:25 Last Admin: 02/23/18 06:43 Dose: 10 units Insulin Aspart (Novolog) 0 unit SUBCUT Q6H PRN; Protocol PRN Reason: MEDIUM CORRECTIONAL DOSE Last Admin: 02/23/18 12:17 Dose: 12 units Insulin Detemir (Levemir) Confirm Administered Dose 300 unit .ROUTE .STK-MED ONE Stop: 02/23/18 06:09 Last Admin: 02/23/18 06:43 Dose: 10 units Insulin Detemir (Levemir) 10 unit SUBCUT Q12H [facility] Last Admin: 02/24/18 06:11 Dose: 10 units Isosorbide Mononitrate (Imdur) 30 mg PO DAILY [facility] Last Admin: 02/22/18 09:00 Dose: Not Given Ketamine HCl (Ketalar) 25 mg IV ASDIRECTED [facility] Ketorolac Tromethamine (Toradol) Confirm Administered Dose 60 mg .ROUTE .STK- MED ONE Stop: 02/25/18 09:07 Levothyroxine Sodium (Levothyroxine) 75 mcg PO ACBREAKFAST [facility] Last Admin: 02/22/18 08:31 Dose: Not Given Lidocaine HCl (Xylocaine-Mpf 1%) Confirm Administered Dose 5 ml .ROUTE .STK-MED ONE Stop: 02/14/18 12:41 Last Admin: 02/14/18 16:48 Dose: Not Given Lidocaine HCl (Xylocaine-Mpf 1%) 0.1 ml INJECT ONETIME ONE Stop: 02/14/18 12:43 Last Admin: 02/14/18 16:48 Dose: Not Given Lidocaine/Epinephrine (Xylocaine 1% With Epinephrine 1:100,000) Confirm Administered Dose 50 ml .ROUTE .STK-MED ONE Stop: 02/16/18 06:45 Last Admin: 02/16/18 07:44 Dose: 10 ml Lidocaine/Epinephrine (Xylocaine 1% With Epinephrine 1:100,000) Confirm Administered Dose 50 ml .ROUTE .STK-MED ONE Stop: 02/27/18 07:44 Last Admin: 02/27/18 11:09 Dose: 16.5 ml Linezolid (Zyvox) 600 mg IRR .STK-MED ONE Stop: 02/25/18 12:21 Last Admin: 02/25/18 12:20 Dose: 600 mg Magnesium Hydroxide (Milk Of Magnesia) 30 ml PO BID [facility] Stop: 02/16/18 21:01 Last Admin: 02/16/18 20:18 Dose: 30 ml Magnesium Hydroxide (Milk Of Magnesia) 30 ml PO ASDIRECTED PRN PRN Reason: * Melatonin (Melatonin) 9 mg PO BEDTIME PRN PRN Reason: Insomnia Last Admin: 02/22/18 00:39 Dose: 9 mg Meperidine HCl (Demerol) 75 mg IM ONETIME ONE Stop: 02/17/18 11:01 Last Admin: 02/17/18 11:00 Dose: 75 mg Meropenem (Merrem) Confirm Administered Dose 500 mg .ROUTE .STK-MED ONE Stop: 02/14/18 08:44 Last Admin: 02/14/18 14:30 Dose: 500 mg Meropenem (Merrem) Confirm Administered Dose 500 mg .ROUTE .STK-MED ONE Stop: 02/16/18 06:45 Last Admin: 02/16/18 07:49 Dose: 500 mg Meropenem (Merrem) Confirm Administered Dose 500 mg .ROUTE .STK-MED ONE Stop: 02/22/18 05:07 Meropenem (Merrem) Confirm Administered Dose 1,500 mg .ROUTE .STK-MED ONE Stop: 02/22/18 05:51 Meropenem (Merrem) Confirm Administered Dose 500 mg .ROUTE .STK-MED ONE Stop: 02/22/18 06:05 Last Admin: 02/22/18 06:00 Dose: 3,500 mg Meropenem (Merrem) Confirm Administered Dose 1,000 mg .ROUTE .STK-MED ONE Stop: 02/22/18 06:40 Meropenem (Merrem) 1,000 mg IRR ONETIME ONE Stop: 02/22/18 07:31 Last Admin: 02/22/18 07:30 Dose: 1,000 mg Meropenem (Merrem) Confirm Administered Dose 1,000 mg .ROUTE .STK-MED ONE Stop: 02/23/18 06:39 Last Admin: 02/23/18 10:18 Dose: 1,500 mg Meropenem (Merrem) Confirm Administered Dose 500 mg .ROUTE .STK-MED ONE Stop: 02/27/18 07:44 Last Admin: 02/27/18 11:09 Dose: 500 mg Methylprednisolone Sodium Succinate (Solu-Medrol) 40 mg IVPUSH Q12H [facility] Last Admin: 02/22/18 01:34 Dose: 40 mg Metoclopramide HCl (Reglan) 10 mg IVPUSH Q8H [facility] Last Admin: 02/22/18 01:34 Dose: 10 mg Midazolam HCl (Versed 1 Mg/Ml) Confirm Administered Dose 10 mg .ROUTE .STK-MED ONE Stop: 02/27/18 09:30 Last Admin: 02/27/18 12:28 Dose: Not Given Midazolam HCl (Versed 1 Mg/Ml) 6 mg IV ONETIME ONE Stop: 02/27/18 10:01 Last Admin: 02/27/18 09:30 Dose: 6 mg Naloxone HCl (Narcan) 0.1 mg IVPUSH Q5M PRN PRN Reason: RESP RATE LESS THAN 6/MINUTE Last Admin: 02/15/18 15:23 Dose: 0.1 mg Neostigmine Methylsulfate (Neostigmine) Confirm Administered Dose 5 mg .ROUTE .STK-MED ONE Stop: 02/14/18 09:36 Neostigmine Methylsulfate (Neostigmine) Confirm Administered Dose 5 mg .ROUTE .STK-MED ONE Stop: 02/22/18 04:44 Nitroglycerin (Nitrostat) 0.4 mg SL ASDIRECTED PRN PRN Reason: CHEST PAIN Fentanyl Patch Check 1 each TOP BID [facility] Last Admin: 02/27/18 09:00 Dose: Not Given Ondansetron HCl (Zofran) Confirm Administered Dose 4 mg .ROUTE .STK-MED ONE Stop: 02/14/18 09:36 Ondansetron HCl (Zofran) 4 mg IVPUSH Q4H PRN PRN Reason: NAUSEA Last Admin: 02/22/18 00:43 Dose: 4 mg Ondansetron HCl (Zofran) Confirm Administered Dose 4 mg .ROUTE .STK-MED ONE Stop: 02/22/18 04:44 Pantoprazole Sodium (Protonix Iv) 40 mg IV Q24H [facility] Last Admin: 02/16/18 17:44 Dose: 40 mg Pantoprazole Sodium (Protonix) 40 mg PO ACBREAKFAST [facility] Last Admin: 02/22/18 10:05 Dose: Not Given Trans-Derm Scop (Patch Removal) 0 each TOP ONETIME ONE Stop: 02/16/18 14:01 Last Admin: 02/16/18 15:05 Dose: Not Given Phenylephrine HCl (Manuel-Synephrine) Confirm Administered Dose 10 mg .ROUTE .STK- MED ONE Stop: 02/22/18 05:40 Piperacillin Sod/Tazobactam Sod (Zosyn) 3.375 gm .ROUTE .STK-MED ONE Stop: 02/25/18 13:01 Prednisone (Prednisone) 2.5 mg PO DAILY [facility] Last Admin: 02/18/18 09:45 Dose: 2.5 mg Prednisone (Prednisone) 10 mg PO DAILY [facility] Last Admin: 02/18/18 11:38 Dose: 10 mg Propofol (Diprivan 20 Ml) Confirm Administered Dose 200 mg .ROUTE .STK-MED ONE Stop: 02/14/18 09:36 Propofol (Diprivan 20 Ml) Confirm Administered Dose 200 mg .ROUTE .STK-MED ONE Stop: 02/16/18 07:10 Propofol (Diprivan 20 Ml) Confirm Administered Dose 200 mg .ROUTE .STK-MED ONE Stop: 02/22/18 04:44 Propofol (Diprivan 20 Ml) Confirm Administered Dose 200 mg .ROUTE .STK-MED ONE Stop: 02/23/18 06:59 Rocuronium [place] (Zemuron) Confirm Administered Dose 50 mg .ROUTE .K-MED ONE Stop: 02/14/18 09:36 Rocuronium [place] (Zemuron) Confirm Administered Dose 50 mg .ROUTE .STK-MED ONE Stop: 02/22/18 04:44 Rocuronium [place] (Zemuron) Confirm Administered Dose 50 mg .ROUTE .STK-MED ONE Stop: 02/23/18 06:59 Rocuronium [place] (Zemuron) Confirm Administered Dose 50 mg .ROUTE .K-MED ONE Stop: 02/25/18 09:02 Scopolamine (Transderm-Scop) 1.5 mg TOP ONETIME ONE Stop: 02/14/18 08:16 Last Admin: 02/14/18 08:32 Dose: 1.5 mg Senna (Senna) 8.6 mg PO BEDTIME [facility] Last Admin: 02/15/18 21:24 Dose: 8.6 mg Senna (Senna) 17.2 mg PO BEDTIME [facility] Last Admin: 02/21/18 20:54 Dose: 17.2 mg Succinylcholine Chloride (Quelicin) Confirm Administered Dose 200 mg .ROUTE .K -MED ONE Stop: 02/14/18 09:36 Succinylcholine Chloride (Quelicin) Confirm Administered Dose 200 mg .ROUTE .ST -MED ONE Stop: 02/22/18 04:44 Theophylline (Pablito-24) 400 mg PO DAILY [facility] Last Admin: 02/19/18 09:31 Dose: 400 mg Tramadol HCl (Ultram) 50 mg PO Q6H PRN PRN Reason: PAIN Last Admin: 02/17/18 04:00 Dose: 50 mg Vancomycin HCl (Vancomycin) 1 gm IV .PHARMACY TO DOSE [facility] Stop: 02/24/18 12:00 - Exam Quality Assessment: Supplemental Oxygen, Central Line/PICC, Urine Catheter General: Alert, Cooperative, No Acute Distress, Sedated HEENT: Pupils Equal Neck: Supple Lungs: Normal Respiratory Effort, Decreased Breath Sounds (Both bases). No: Wheezing Cardiovascular: Regular Rhythm, Tachycardia GI/Abdominal Exam: Soft, No Distention Extremities: Pedal Edema, Other (Pitting edema both arms) Skin: Warm, Dry Psy/Mental Status: Alert. No: Anxious Physical Findings Comments:: Chest x-ray this morning shows slight increase in the right lower lung infiltrate/effusion. Consult PN Assessment/Plan Procedures: Procedures AGENT NOS ASSAY W/OPTIC (01/19/18) AIRWAY INHALATION TREATMENT (01/19/18) ASSAY OF AMYLASE (01/02/18) ASSAY OF LIPASE (01/19/18) ASSAY OF MAGNESIUM (01/19/18) ASSAY OF PHOSPHORUS (01/19/18) ASSAY OF SERUM POTASSIUM (01/19/18) ASSAY THYROID STIM HORMONE (01/19/18) C DIFF AMPLIFIED PROBE (01/19/18) C-REACTIVE PROTEIN (01/19/18) CARDIOVASCULAR STRESS TEST (04/12/16) CHEST WALL MANIPULATION (12/19/17) CHEST WALL MANIPULATION (12/19/17) COMP SCREEN MAMMOGRAM ADD-ON (04/05/15) COMPLETE CBC AUTOMATED (01/19/18) COMPLETE CBC W/AUTO DIFF WBC (01/19/18) COMPREHEN METABOLIC PANEL (01/19/18) CT ABD & PELV W/CONTRAST (01/19/18) CT ABD & PELVIS W/O CONTRAST (01/02/18) CULTURE AEROBIC IDENTIFY (12/19/17) CULTURE OTHR SPECIMN AEROBIC (12/19/17) CULTURE SCREEN ONLY (10/09/17) EGD BIOPSY SINGLE/MULTIPLE (10/09/17) EMERGENCY DEPT VISIT (01/19/18) EMERGENCY DEPT VISIT (01/19/18) HT MUSCLE IMAGE SPECT MULT (04/12/16) HYDRATE IV INFUSION ADD-ON (01/19/18) LEUKOCYTE ASSESSMENT FECAL (01/02/18) MANUAL THERAPY 1/> REGIONS (02/12/18) METABOLIC PANEL TOTAL CA (01/19/18) NEUROMUSCULAR REEDUCATION (12/17/17) OVA AND PARASITES SMEARS (01/19/18) PROTHROMBIN TIME (01/19/18) PT EVAL MOD COMPLEX 30 MIN (08/13/17) ROUTINE VENIPUNCTURE (01/19/18) SMEAR COMPLEX STAIN (01/19/18) SMEAR GRAM STAIN (12/19/17) STOOL CULTR AEROBIC BACT EA (01/19/18) THER/PROPH/DIAG INJ IV PUSH (01/19/18) THERAPEUTIC EXERCISES (12/17/17) TISSUE EXAM BY PATHOLOGIST (10/09/17) TX/PRO/DX INJ SAME DRUG KEY BED INSTALLER (01/02/18) ULTRASOUND THERAPY (02/12/18) X-RAY EXAM ABDOMEN 2 VIEWS (01/02/18) X-RAY EXAM OF SHOULDER (07/26/17) Problem List Initiated/Reviewed/Updated: Yes My Orders Last 24 Hours: My Active Orders 02/26/18 22:35 CULTURE BLOOD [BC] Routine Plan: ASSESSMENT AND RECOMMENDATIONS INTRA-ABDOMINAL INFECTION WITH SEPSIS - Intra-abdominal cultures growing enterococcus and yeast. Sepsis has resolved at this point. She does continue to have some nocturnal temperature elevations but repeat cultures have been negative. -Continue current antibiotic therapy with meropenem, vancomycin and fluconazole -Follow-up cultures -Judicious IV fluid use HYPOXIC RESPIRATORY FAILURE - likely secondary to COPD with contribution from volume overload. On minimal ventilator support at this time. Will need additional diuresis today. She is nearing readiness for extubation as her mental status improves. -Diuresis after blood transfusion -Sedation holiday today as tolerated -Spontaneous breathing trials daily -Continue nebulizer therapy Anemia due to acute illness and blood loss - hemoglobin 9 today. 1 unit of packed red blood cells has been ordered by the surgical team. -I would recommend avoiding transfusion unless hemoglobin is less than 8 or there is active bleeding or hemodynamic instability Severe thrombocytopenia - Suspect combination of sepsis and possible disseminated intravascular coagulation. Heparin has also been discontinued. Platelet count slightly lower today but still no evidence for bleeding. -Transfuse if less than 10,000 or bleeding -Workup for heparin-induced thrombocytopenia pending -Daily laboratory studies TYPE 2 DIABETES MELLITUS - sugars have stabilized. -Discontinue long acting insulin -Monitor sugars, restart insulin if indicated ACUTE KIDNEY INJURY - renal function has been stable after volume status was optimized. -Continue closely monitor urine output and renal function Holger Zambrano M.D.
[2018-02-27] MEDS: Pantoprazole 40 MG Vial IV SCH (14:17)
[2018-02-27 15:18] LABS: HEPARIN INDUCED PLATELET AB 0.234 OD (0.000-0.400)
--- NOTE | 2018-02-27 17:37 | PN ---
DATE OF SERVICE: 02/25/2018 The patient has been generally doing fairly well, off the drips with good blood pressure. CVP is running in the 8 range; however, around 5:00 a.m. this morning, she was noted to have some green drainage in the upper abdominal drains indicative of some probable leak from the small bowel. My suspicion is that she probably had an ischemic area related to the period of time that she was on high-dose norepinephrine and vasopressin. Otherwise, her platelet count is 19,000, and we will need to do an exploratory laparotomy to control whatever is going on in terms of likely GI tract contents. We should have platelets available around 11:00 this morning, at which time, we will proceed with exploratory laparotomy. Otherwise, the situation was reviewed with the patient's daughter. She is aware that this once again continues to be a life-threatening problem but overall, the patient's prognosis is improved in the last 36 hours, and she should tolerate the laparotomy I think fairly well. Getting the source control would be essential at this point to continue the patient's improvement. Other labs showed a creatinine down to 1.1, magnesium is slightly low at 1.6. BNP is down from 3100 yesterday to 2600 today and albumin after the albumin infusions is 1.5 today. We will plan to proceed with a laparotomy later this morning when the platelets become available. Robert Pate MD /[id number]
[2018-02-27] MEDS ORDERED: Furosemide 20 MG/2 ML VIAL ONE (21:21)
[2018-02-28] MEDS: Budesonide 0.5 MG/2 ML Neb Susp INH SCH ×2 (07:22→21:16)
[2018-02-28] MEDS: Albuterol/Ipratropium 3.0-0.5 MG/3 ML Neb Soln INH SCH ×4 (07:22→21:16)
--- NOTE | 2018-02-28 07:38 | PN ---
DATE OF SERVICE: 02/26/2018 HISTORY OF PRESENT ILLNESS: The patient has run some intermittent elevated temps overnight in the 100.1 to 100.8 range and is somewhat more tachycardic with a heart rate in the 110s. Otherwise, she has remained hemodynamically stable, and urine output has been satisfactory. From a respiratory standpoint, she appears to be roughly status quo, and she is not showing any significant increased secretions. The G-tube appeared to be not functioning well yesterday, she did have some emesis of bilious material, and an NG tube was placed overnight. I think we have the G-tube situation figured out now in terms of adequate drainage. We will get the NG tube out today. There was no report of any bile getting into the area below the endotracheal tube with that emesis. Otherwise, the abdomen is not noted to have any significant drainage at this point, and the fascial closure appeared to be remaining intact. The labs show a white count of 6.1, hemoglobin is 8.8, and platelet count is up to 56,000. Blood gas showed pH 7.48, pCO2 of 31, pO2 of 104 on 40% FiO2. Other laboratory studies show a markedly low potassium at 3.4. I will give her some K-Phos for that, and otherwise her BNP remains relatively high at 2,967, although the CVP is only around 5 at this point. The plan will be to transfuse the patient 1 unit of packed RBCs. We will give her some K-Phos today IV, the NG tube will be removed, with plan for delayed primary closure tomorrow. With elevated temp and tachycardia, we will obtain blood cultures x2, one through the triple lumen catheter, and one via the peripheral site. I think we will get one through the arterial line as well, and otherwise continue present antibiotics with the guidance of the hospitalist. We will plan to proceed with a delayed primary closure tomorrow. She remains otherwise stable. This will be done in ICU at the bedside. Robert Pate MD /[id number]
[2018-02-28] MEDS: Fluconazole/Normal Saline 200 MG in Premix Bag 1 BAG IV SCH (08:37)
--- NOTE | 2018-02-28 08:59 | CR ---
Chest 1V Frontal INDICATION: intubated COMPARISON: 02/27/2018 FINDINGS: AP portable chest. ET tube and IJ central line remain in place. Pacer device. Slight improvement in pleural effusions and vascular congestion. Postop change and drains in the abdomen.
--- NOTE | 2018-02-28 10:09 | PCM.CONSN ---
- General Info Date of Service: 02/28/18 - Review of Systems General: Reports: Fever Systems Review Comment:: patient had another fever overnight but otherwise there were no acute events. Vital signs have been stable. Ventilator support remains fairly minimal. She was on CPAP via the vent overnight and did fairly well. Respiratory rate is in the low 20s this morning. Urine output has been adequate. Her old central line was removed this morning and a new right-sided triple-lumen catheter was placed. She is lethargic this morning and does not respond to commands. - Patient Data Vitals - Most Recent: Last Vital Signs Temp 38.1 C 02/28/18 07:00 Pulse 116 H 02/28/18 07:49 Resp 25 H 02/28/18 07:49 BP 124/59 L 02/28/18 07:49 Pulse Ox 96 02/28/18 07:49 Weight - Most Recent: 45.314 kg I&O - Last 24 Hours: Intake & Output 02/27/18 02/28/18 02/28/18 22:59 06:59 14:59 Intake Total 985 650 Output Total 1764 1835 100 Balance -779 -1185 -100 Lab Results Last 24 Hours: Laboratory Results - last 24 hr 02/25/18 02/26/18 02/27/18 Range/Units 08:37 04:00 10:55 WBC (4.5-11.0) K/uL RBC (3.30-5.50) M/uL Hgb (12.0-15.0) g/dL Hct (36.0-48.0) % MCV (80-98) fL MCH (27-31) pg MCHC (32-36) % Plt Count (150-400) K/uL Puncture Site ABG pH (7.350-7.450) ABG pCO2 (35.0-42.0) mmHg ABG pO2 (75.0-100.0) mmHg ABG HCO3 (22.0-26.0) mmol/L ABG Total CO2 (21.0-25.0) mmol/L ABG O2 Saturation (95.0-98.0) % ABG O2 Content (15.0-23.0) %vol ABG Base Excess mm/L ABG Hemoglobin (12.0-16.0) g/dL ABG Oxyhemoglobin % ABG Carboxyhemoglobin (0.0-1.6) % ABG Methemoglobin % O2 Delivery Device Oxygen Flow Rate L Sodium (140-148) mmol/L Potassium (3.6-5.2) mmol/L Chloride (100-108) mmol/L Carbon Dioxide (21-32) mmol/L Anion Gap (5.0-14.0) mmol/L BUN (7-18) mg/dL Creatinine (0.6-1.0) mg/dL Est Cr Clr Drug Dosing mL/min Estimated GFR (MDRD) (>60) Glucose (74-106) mg/dL Lactic Acid (0.4-2.0) mmol/L Calcium (8.5-10.1) mg/dL Phosphorus (2.5-4.9) mg/dL Magnesium (1.8-2.4) mg/dL Total Bilirubin (0.2-1.0) mg/dL AST (15-37) U/L ALT (12-78) U/L Alkaline Phosphatase (46-116) U/L Lactate Dehydrogenase (82-234) U/L NT-Pro-B Natriuret Pep (5-450) pg/mL Total Protein (6.4-8.2) g/dL Albumin (3.4-5.0) g/dL Globulin (2.3-3.5) g/dL Albumin/Globulin Ratio (1.2-2.2) Vancomycin Trough 12.3 (10.0-20.0) ug/mL Hep-Induced Plt Ab Kimberly 0.234 (0.000-0.400) OD Blood Type A POSITIVE Gel Antibody Screen Negative Crossmatch See Detail 02/28/18 02/28/18 02/28/18 Range/Units 04:10 04:10 04:20 WBC 4.5 (4.5-11.0) K/uL RBC 4.23 (3.30-5.50) M/uL Hgb 12.1 D (12.0-15.0) g/dL Hct 35.2 L (36.0-48.0) % MCV 83 (80-98) fL MCH 29 (27-31) pg MCHC 34 (32-36) % Plt Count 28 L* (150-400) K/uL Puncture Site ABG pH (7.350-7.450) ABG pCO2 (35.0-42.0) mmHg ABG pO2 (75.0-100.0) mmHg ABG HCO3 (22.0-26.0) mmol/L ABG Total CO2 (21.0-25.0) mmol/L ABG O2 Saturation (95.0-98.0) % ABG O2 Content (15.0-23.0) %vol ABG Base Excess mm/L ABG Hemoglobin (12.0-16.0) g/dL ABG Oxyhemoglobin % ABG Carboxyhemoglobin (0.0-1.6) % ABG Methemoglobin % O2 Delivery Device Oxygen Flow Rate L Sodium 143 (140-148) mmol/L Potassium 3.9 (3.6-5.2) mmol/L Chloride 109 H (100-108) mmol/L Carbon Dioxide 22 (21-32) mmol/L Anion Gap 15.9 H (5.0-14.0) mmol/L BUN 13 (7-18) mg/dL Creatinine 0.8 (0.6-1.0) mg/dL Est Cr Clr Drug Dosing 38.78 mL/min Estimated GFR (MDRD) > 60 (>60) Glucose 87 (74-106) mg/dL Lactic Acid 2.6 H (0.4-2.0) mmol/L Calcium 7.8 L (8.5-10.1) mg/dL Phosphorus 4.3 (2.5-4.9) mg/dL Magnesium 1.7 L (1.8-2.4) mg/dL Total Bilirubin 2.3 H (0.2-1.0) mg/dL AST 44 H (15-37) U/L ALT 18 (12-78) U/L Alkaline Phosphatase 66 (46-116) U/L Lactate Dehydrogenase 269 H (82-234) U/L NT-Pro-B Natriuret Pep 11220 H (5-450) pg/mL Total Protein 4.3 L (6.4-8.2) g/dL Albumin 2.1 L (3.4-5.0) g/dL Globulin 2.2 L (2.3-3.5) g/dL Albumin/Globulin Ratio 1.0 L (1.2-2.2) Vancomycin Trough (10.0-20.0) ug/mL Hep-Induced Plt Ab Kimberly (0.000-0.400) OD Blood Type Gel Antibody Screen Crossmatch 02/28/18 Range/Units 04:20 WBC (4.5-11.0) K/uL RBC (3.30-5.50) M/uL Hgb (12.0-15.0) g/dL Hct (36.0-48.0) % MCV (80-98) fL MCH (27-31) pg MCHC (32-36) % Plt Count (150-400) K/uL Puncture Site L brachial ABG pH 7.491 H (7.350-7.450) ABG pCO2 31.3 L (35.0-42.0) mmHg ABG pO2 91.0 (75.0-100.0) mmHg ABG HCO3 23.6 (22.0-26.0) mmol/L ABG Total CO2 21.0 (21.0-25.0) mmol/L ABG O2 Saturation 97.6 (95.0-98.0) % ABG O2 Content 16.2 (15.0-23.0) %vol ABG Base Excess 1.3 mm/L ABG Hemoglobin 11.9 L (12.0-16.0) g/dL ABG Oxyhemoglobin 95.7 % ABG Carboxyhemoglobin 1.2 (0.0-1.6) % ABG Methemoglobin 0.7 % O2 Delivery Device Ventilator Oxygen Flow Rate L Sodium (140-148) mmol/L Potassium (3.6-5.2) mmol/L Chloride (100-108) mmol/L Carbon Dioxide (21-32) mmol/L Anion Gap (5.0-14.0) mmol/L BUN (7-18) mg/dL Creatinine (0.6-1.0) mg/dL Est Cr Clr Drug Dosing mL/min Estimated GFR (MDRD) (>60) Glucose (74-106) mg/dL Lactic Acid (0.4-2.0) mmol/L Calcium (8.5-10.1) mg/dL Phosphorus (2.5-4.9) mg/dL Magnesium (1.8-2.4) mg/dL Total Bilirubin (0.2-1.0) mg/dL AST (15-37) U/L ALT (12-78) U/L Alkaline Phosphatase (46-116) U/L Lactate Dehydrogenase (82-234) U/L NT-Pro-B Natriuret Pep (5-450) pg/mL Total Protein (6.4-8.2) g/dL Albumin (3.4-5.0) g/dL Globulin (2.3-3.5) g/dL Albumin/Globulin Ratio (1.2-2.2) Vancomycin Trough (10.0-20.0) ug/mL Hep-Induced Plt Ab Kimberly (0.000-0.400) OD Blood Type Gel Antibody Screen Crossmatch Kash Results Last 24 Hours: Microbiology 02/26/18 07:09 Aerobic Blood Culture - Preliminary Blood - Arm, Right NO GROWTH AFTER 2 DAYS Anaerobic Blood Culture - Preliminary NO GROWTH AFTER 2 DAYS 02/26/18 06:40 Aerobic Blood Culture - Preliminary Blood - Central Line NO GROWTH AFTER 2 DAYS Anaerobic Blood Culture - Preliminary NO GROWTH AFTER 2 DAYS 02/25/18 12:30 Gram Stain - Final Abdominal Fluid - Drainage Wound Culture - Final Enterococcus Faecium YEAST Anaerobic Culture - Preliminary NO GROWTH AFTER 2 DAYS 02/26/18 22:35 Aerobic Blood Culture - Preliminary Blood - Central Line NO GROWTH AFTER 1 DAY Anaerobic Blood Culture - Preliminary NO GROWTH AFTER 1 DAY Med Orders - Current: Current Medications Albuterol/Ipratropium (Duoneb 3.0-0.5 Mg/3 Ml) 3 ml INH ASDIRECTED PRN PRN Reason: RESP Last Admin: 02/17/18 18:57 Dose: 3 ml Albuterol/Ipratropium (Duoneb 3.0-0.5 Mg/3 Ml) 3 ml INH QIDRT ANGELA Last Admin: 02/28/18 07:22 Dose: 3 ml Budesonide (Pulmicort) 0.5 mg INH BIDRT ANGELA Last Admin: 02/28/18 07:22 Dose: 0.5 mg Dextrose (Glutose 15) 15 gm PO ASDIRECTED PRN PRN Reason: HYPOGLYCEMIA Dextrose/Water (Dextrose 50% In Water) 50 ml IVPUSH ASDIRECTED PRN PRN Reason: HYPOGLYCEMIA Glucagon (Glucagen) 1 mg IM ASDIRECTED PRN PRN Reason: HYPOGLYCEMIA Hydromorphone HCl (Dilaudid Offset Second Press Operator 15 Mg In Ns 30 Ml) 15 mg IV ASDIRECTED ANGELA; Protocol Last Admin: 02/25/18 08:34 Dose: 15 mg Meropenem 1 gm/ Sodium (Chloride) 50 mls @ 100 mls/hr IV Q12H [facility] Last Admin: 02/28/18 05:17 Dose: 100 mls/hr Fluconazole/Sodium Chloride (200 mg/ Premix) 100 mls @ 100 mls/hr IV Q24H [facility] Last Admin: 02/28/18 08:37 Dose: 100 mls/hr Dextrose/Lactated Ringer's (Dextrose 5%-Lactated Ringers) 1,000 mls @ 50 mls/ hr IV ASDIRECTED [facility] Last Admin: 02/26/18 22:25 Dose: 50 mls/hr Vancomycin HCl 1.25 gm/ Sodium (Chloride) 250 mls @ 167 mls/hr IV Q24H [facility] Last Admin: 02/27/18 12:26 Dose: 167 mls/hr Naloxone HCl (Narcan) 0.1 mg IV ASDIRECTED PRN PRN Reason: decreased respiratory rate Pantoprazole Sodium (Protonix Iv) 40 mg IV Q24H [facility] Last Admin: 02/27/18 14:17 Dose: 40 mg Discontinued Medications Acetaminophen (Tylenol Extra Strength) 1,000 mg PO ONETIME ONE Stop: 02/14/18 08:16 Last Admin: 02/14/18 08:31 Dose: 1,000 mg Acetaminophen (Tylenol) 650 mg PO Q6H [facility] Last Admin: 02/22/18 08:00 Dose: Not Given Albuterol/Ipratropium (Duoneb 3.0-0.5 Mg/3 Ml) 3 ml NEB ONETIME ONE Stop: 02/14/18 09:46 Last Admin: 02/14/18 12:32 Dose: 3 ml Allopurinol (Zyloprim) 150 mg PO DAILY [facility] Last Admin: 02/21/18 08:06 Dose: 150 mg Alvimopan (Entereg) 12 mg PO ONETIME ONE Stop: 02/14/18 08:16 Last Admin: 02/14/18 08:31 Dose: 12 mg Alvimopan (Entereg) 12 mg PO BID [facility] Stop: 02/21/18 09:01 Last Admin: 02/21/18 08:05 Dose: 12 mg Aspirin (Halfprin) 81 mg PO DAILY [facility] Last Admin: 02/22/18 09:00 Dose: Not Given Aztreonam (Azactam) Confirm Administered Dose 1 gm .ROUTE .STK-MED ONE Stop: 02/22/18 06:21 Last Admin: 02/22/18 06:20 Dose: 2 gm Aztreonam (Azactam) Confirm Administered Dose 1 gm .ROUTE .STK-MED ONE Stop: 02/22/18 06:21 Bisacodyl (Dulcolax) 10 mg PO BID [facility] Last Admin: 02/22/18 09:00 Dose: Not Given Bisacodyl (Dulcolax) 10 mg RECTAL TID [facility] Last Admin: 02/21/18 21:01 Dose: 10 mg Bisacodyl (Dulcolax) 10 mg RECTAL ONETIME ONE Stop: 02/21/18 10:01 Last Admin: 02/21/18 09:37 Dose: Not Given Bupivacaine HCl (Marcaine 0.5%) Confirm Administered Dose 50 ml .ROUTE .STK-MED ONE Stop: 02/16/18 06:45 Last Admin: 02/16/18 07:44 Dose: 10 ml Bupivacaine HCl (Marcaine 0.5%) Confirm Administered Dose 50 ml .ROUTE .STK-MED ONE Stop: 02/27/18 07:44 Last Admin: 02/27/18 11:08 Dose: 16.5 ml Carvedilol (Coreg) 3.125 mg PO BIDMEALS [facility] Last Admin: 02/21/18 17:39 Dose: 3.125 mg Cefoxitin Sodium (Mefoxin) Confirm Administered Dose 2 gm .ROUTE .STK-MED ONE Stop: 02/14/18 08:44 Ropivacaine 25 ml/Dexamethasone 8 mg/Epinephrine HCl 0.4 mg/ Sodium Chloride 52.6 ml 0 ml NERVRT ASDIRECTED [facility] Neomycin/Polymyxin 1 ml/ (Sodium Chloride 500 ml) 0 ml IRR ONETIME ONE Stop: 02/14/18 08:16 Last Admin: 02/14/18 08:35 Dose: 750 irr Ropivacaine 25 ml/Dexamethasone 8 mg/Epinephrine HCl 0.4 mg/ Sodium Chloride 52.6 ml 0 ml NERVRT ASDIRECTED [facility] Last Admin: 02/16/18 07:59 Dose: 80 syringe Dexamethasone (Dexamethasone) Confirm Administered Dose 4 mg .ROUTE .STK-MED ONE Stop: 02/14/18 09:36 Dexamethasone (Dexamethasone) Confirm Administered Dose 4 mg .ROUTE .STK-MED ONE Stop: 02/22/18 04:44 Dextrose/Water (Dextrose 50% In Water) 25 ml IVPUSH ONETIME ONE Stop: 02/25/18 02:21 Last Admin: 02/25/18 02:28 Dose: 25 ml Diphenhydramine HCl (Benadryl) 25 mg IVPUSH Q6H PRN PRN Reason: Itching Last Admin: 02/14/18 15:58 Dose: 25 mg Ephedrine Sulfate (Ephedrine Sulfate) Confirm Administered Dose 50 mg .ROUTE .STK-MED ONE Stop: 02/14/18 13:50 Ephedrine Sulfate (Ephedrine Sulfate) Confirm Administered Dose 50 mg .ROUTE .STK-MED ONE Stop: 02/22/18 05:33 Erythromycin Ethylsuccinate (Eryped 400) 250 mg NGTUBE Q6H [facility] Last Admin: 02/22/18 04:26 Dose: Not Given Fentanyl (Sublimaze) Confirm Administered Dose 250 mcg .ROUTE .ST-MED ONE Stop: 02/14/18 09:36 Fentanyl (Sublimaze) Confirm Administered Dose 100 mcg .ROUTE .STK-MED ONE Stop: 02/16/18 07:10 Fentanyl (Sublimaze) Confirm Administered Dose 250 mcg .ROUTE .STK-MED ONE Stop: 02/22/18 04:44 Fentanyl (Duragesic) Confirm Administered Dose 12 mcg .ROUTE .STK-MED ONE Stop: 02/22/18 05:42 Last Admin: 02/22/18 05:51 Dose: 12 mcg Fentanyl (Duragesic) 12 mcg TRDERM Q72H [facility] Last Admin: 02/25/18 06:37 Dose: 12 mcg Fentanyl (Sublimaze) Confirm Administered Dose 100 mcg .ROUTE .STK-MED ONE Stop: 02/23/18 07:51 Fentanyl (Sublimaze) Confirm Administered Dose 250 mcg .ROUTE .STK-MED ONE Stop: 02/25/18 09:02 Furosemide (Lasix) 40 mg PO DAILY [facility] Last Admin: 02/18/18 09:45 Dose: 40 mg Furosemide (Lasix) 20 mg IVPUSH ONETIME STA Stop: 02/17/18 20:03 Last Admin: 02/17/18 20:30 Dose: 20 mg Furosemide (Lasix) 40 mg IVPUSH NOW ONE Stop: 02/17/18 21:33 Last Admin: 02/17/18 21:53 Dose: 40 mg Furosemide (Lasix) 20 mg IVPUSH NOW ONE Stop: 02/21/18 10:01 Last Admin: 02/21/18 09:50 Dose: 20 mg Furosemide (Lasix) 20 mg IV ASDIRECTED [facility] Stop: 02/26/18 23:00 Last Admin: 02/26/18 11:21 Dose: 20 mg Furosemide (Lasix) 10 mg IV ASDIRECTED [facility] Stop: 02/27/18 16:00 Furosemide (Lasix) 20 mg IV ONETIME ONE Stop: 02/27/18 12:01 Last Admin: 02/27/18 21:23 Dose: 20 mg Furosemide (Lasix) Confirm Administered Dose 20 mg .ROUTE .STK-MED ONE Stop: 02/27/18 21:22 Last Admin: 02/27/18 21:30 Dose: Not Given Glucagon (Glucagen) Confirm Administered Dose 1 mg .ROUTE .STK-MED ONE Stop: 02/14/18 14:26 Glycopyrrolate (Robinul) Confirm Administered Dose 1 mg .ROUTE .STK-MED ONE Stop: 02/14/18 09:36 Glycopyrrolate (Robinul) Confirm Administered Dose 1 mg .ROUTE .STK-MED ONE Stop: 02/22/18 04:44 Heparin Sodium (Porcine) (Heparin Lock Flush 100 Units/Ml) Confirm Administered Dose 500 units .ROUTE .STK-MED ONE Stop: 02/22/18 06:05 Last Admin: 02/22/18 08:30 Dose: 500 units Heparin Sodium (Porcine) (Heparin Sodium) Confirm Administered Dose 5,000 units .ROUTE .STK-MED ONE Stop: 02/22/18 07:34 Heparin Sodium (Porcine) (Heparin Sodium) Confirm Administered Dose 5,000 units .ROUTE .STK-MED ONE Stop: 02/22/18 09:11 Last Admin: 02/22/18 10:43 Dose: Not Given Hydromorphone HCl (Dilaudid Offset Second Press Operator 15 Mg In Ns 30 Ml) 0 mg IV ASDIRECTED PRN; Protocol PRN Reason: STUDENT DEAN PAIN CONTROL Last Admin: 02/19/18 06:32 Dose: 15 mg Hydromorphone HCl (Dilaudid Offset Second Press Operator 15 Mg In Ns 30 Ml) Confirm Administered Dose 15 mg IV .STK-MED ONE Stop: 02/17/18 10:18 Last Admin: 02/17/18 10:31 Dose: Not Given Hydroxyzine HCl (Vistaril) 0 mg IM Q4H PRN PRN Reason: PAIN Last Admin: 02/22/18 01:27 Dose: 75 mg Hydroxyzine HCl (Vistaril) 75 mg IM ONETIME ONE Stop: 02/17/18 11:01 Last Admin: 02/17/18 11:00 Dose: 75 mg Dextrose/Lactated Ringer's (Dextrose 5%-Lactated Ringers) 1,000 mls @ 100 mls/ hr IV ASDIRECTED ANGELA Last Admin: 02/14/18 12:44 Dose: 100 mls/hr Meropenem 500 mg/ Sodium (Chloride) 50 mls @ 100 mls/hr IV ONETIME ONE Stop: 02/14/18 10:14 Last Admin: 02/14/18 12:59 Dose: 100 mls/hr Fentanyl 2,500 mcg/ Sodium (Chloride) 250 mls @ 0 mls/hr EPIDUR TITRATE ANGELA; Protocol Fentanyl Citrate 2,500 mcg/ (Sodium Chloride) 250 mls @ 0 mls/hr EPIDUR TITRATE ANGELA; Protocol Last Admin: 02/15/18 15:05 Dose: 8 mls/hr, 8 mls/hr Lactated Ringer's (Ringers, Lactated) Confirm Administered Dose 1,000 mls @ as directed .ROUTE .STK-MED ONE Stop: 02/14/18 14:38 Dextrose/Lactated Ringer's (Dextrose 5%-Lactated Ringers) 1,000 mls @ 100 mls/ hr IV ASDIRECTED ANGELA Dextrose/Lactated Ringer's (Dextrose 5%-Lactated Ringers) 1,000 mls @ 150 mls/ hr IV ASDIRECTED ANGELA Last Admin: 02/15/18 02:48 Dose: 150 mls/hr Cefoxitin Sodium 2 gm/ Sodium (Chloride) 50 mls @ 100 mls/hr IV Q6H ANGELA Last Admin: 02/17/18 08:48 Dose: 100 mls/hr Potassium Chloride/Dextrose/Sod Cl (D5 1/2 Ns W/ 20 Meq/L Kcl) 1,000 mls @ 80 mls/hr IV ASDIRECTED ANGELA Last Admin: 02/15/18 09:37 Dose: 80 mls/hr Naloxone HCl 0.4 mg/ Potassium (Chloride/Dextrose/Sod Cl) 1,001 mls @ 80.08 mls /hr IV ASDIRECTED ANGELA Last Admin: 02/16/18 04:38 Dose: 80.08 mls/hr Fentanyl Citrate 2,500 mcg/ (Sodium Chloride) 250 mls @ 4 mls/hr EPIDUR TITRATE [facility]; Protocol Last Admin: 02/15/18 22:56 Dose: 4 ml/hr, 4 mls/hr Potassium Chloride/Dextrose/Sod Cl (D5 1/2 Ns W/ 20 Meq/L Kcl) 1,000 mls @ 40 mls/hr IV ASDIRECTED ANGELA Last Admin: 02/17/18 10:12 Dose: 100 mls/hr Potassium Phosphate 30 mmole/ (Sodium Chloride) 160 mls @ 54 mls/hr IV Q3H ANGELA Stop: 02/17/18 16:58 Last Admin: 02/17/18 16:49 Dose: 54 mls/hr Dextrose/Lactated Ringer's (Dextrose 5%-Lactated Ringers) 1,000 mls @ 100 mls/ hr IV ASDIRECTED [facility] Last Admin: 02/19/18 08:52 Dose: 100 mls/hr Lactated Ringer's (Ringers, Lactated) 1,000 mls @ 250 mls/hr IV ASDIRECTED ANGELA Stop: 02/18/18 14:31 Last Admin: 02/18/18 11:28 Dose: 250 mls/hr Acetaminophen 1,000 mg/ Premix 100 mls @ 400 mls/hr IV NOW ONE Stop: 02/18/18 11:16 Last Admin: 02/18/18 11:33 Dose: Not Given Dextrose/Lactated Ringer's (Dextrose 5%-Lactated Ringers) 1,000 mls @ 75 mls/ hr IV ASDIRECTED [facility] Last Admin: 02/20/18 23:39 Dose: 75 mls/hr Potassium Phosphate 22.5 mmole (/ Sodium Chloride) 257.5 mls @ 86 mls/hr IV Q3H ANGELA Stop: 02/21/18 15:59 Last Admin: 02/21/18 12:55 Dose: 86 mls/hr Dextrose/Lactated Ringer's (Dextrose 5%-Lactated Ringers) 1,000 mls @ 50 mls/ hr IV ASDIRECTED ANGELA Last Admin: 02/21/18 16:35 Dose: 50 mls/hr Meropenem 500 mg/ Sodium (Chloride) 50 mls @ 100 mls/hr IV ONETIME ONE Stop: 02/22/18 04:48 Last Admin: 02/22/18 05:30 Dose: 100 mls/hr Lactated Ringer's (Ringers, Lactated) Confirm Administered Dose 1,000 mls @ as directed .ROUTE .STK-MED ONE Stop: 02/22/18 05:19 Sodium Chloride (Normal Saline) Confirm Administered Dose 250 mls @ as directed .ROUTE .STK-MED ONE Stop: 02/22/18 06:14 Norepinephrine Bitartrate 4 mg (/ Dextrose/Water) 250 mls @ 7.5 mls/hr IV TITRATE ANGELA; Protocol Last Titration: 02/22/18 10:29 Dose: 11 mcg/min, 41.25 mls/hr Lactated Ringer's (Ringers, Lactated) Confirm Administered Dose 1,000 mls @ as directed .ROUTE .ST-MED ONE Stop: 02/22/18 07:12 Dextrose/Lactated Ringer's (Dextrose 5%-Lactated Ringers) 1,000 mls @ 100 mls/ hr IV ASDIRECTED ANGELA Last Admin: 02/24/18 10:13 Dose: 100 mls/hr Propofol (Diprivan 100 Ml) 100 mls @ 1.46 mls/hr IV TITRATE ANGELA; Protocol Last Admin: 02/24/18 01:41 Dose: 5 mcg/kg/min, 1.46 mls/hr Lactated Ringer's (Ringers, Lactated) 1,000 mls @ 125 mls/hr IV ASDIRECTED ANGELA Last Admin: 02/24/18 10:15 Dose: 125 mls/hr Meropenem 500 mg/ Sodium (Chloride) 50 mls @ 100 mls/hr IV Q6H ANGELA Last Admin: 02/22/18 10:31 Dose: 100 mls/hr Aztreonam/Dextrose 1 gm/ (Premix) 50 mls @ 100 mls/hr IV Q8H ANGELA Last Admin: 02/24/18 01:31 Dose: 100 mls/hr Lactated Ringer's (Ringers, Lactated) 1,000 mls @ 999 mls/hr IV .BOLUS ONE Stop: 02/22/18 11:00 Last Admin: 02/22/18 10:00 Dose: 999 mls/hr Lactated Ringer's (Ringers, Lactated) 750 mls @ 999 mls/hr IV ONETIME ONE Stop: 02/22/18 12:00 Last Admin: 02/22/18 11:15 Dose: 999 mls/hr Norepinephrine Bitartrate 4 mg (/ Dextrose/Water) 250 mls @ 7.5 mls/hr IV TITRATE ANGELA; Protocol Stop: 02/22/18 17:30 Last Titration: 02/22/18 17:02 Dose: 12 mcg/min, 45 mls/hr Lactated Ringer's (Ringers, Lactated) 1,000 mls @ 999 mls/hr IV ASDIRECTED ONE Stop: 02/22/18 14:30 Last Admin: 02/22/18 13:30 Dose: 999 mls/hr Lactated Ringer's (Ringers, Lactated) 1,000 mls @ 500 mls/hr IV ONETIME ONE Stop: 02/22/18 16:29 Last Admin: 02/22/18 14:19 Dose: 500 mls/hr Vasopressin 100 units/ (Dextrose/Water) 255 mls @ 1.53 mls/hr IV TITRATE ANGELA; Protocol Vasopressin 100 units/ (Dextrose/Water) 255 mls @ 1.53 mls/hr IV TITRATE ANGELA; Protocol Last Titration: 02/22/18 15:57 Dose: 0.02 units/min, 3.06 mls/hr Norepinephrine Bitartrate 8 mg (/ Dextrose/Water) 500 mls @ 7.5 mls/hr IV TITRATE ANGELA; Protocol Last Titration: 02/24/18 08:50 Dose: 0 mcg/min, 0 mls/hr Lactated Ringer's (Ringers, Lactated) 1,000 mls @ 250 mls/hr IV ONETIME ONE Stop: 02/22/18 20:29 Last Infusion: 02/22/18 20:04 Dose: 125 mls/hr Magnesium Sulfate 2 gm/ Premix 50 mls @ 25 mls/hr IV Q6H ANGELA Stop: 02/23/18 17:29 Last Admin: 02/23/18 14:31 Dose: 25 mls/hr Vasopressin 40 units/ Dextrose (/Water) 100 mls @ 1.5 mls/hr IV TITRATE ANGELA; Protocol Last Titration: 02/23/18 17:02 Dose: 0 units/min, 0 mls/hr Insulin Human Regular 100 unit (/ Sodium Chloride) 101 mls @ 0.5 mls/hr IV TITRATE ANGELA; Protocol Last Titration: 02/24/18 07:49 Dose: 0 units/hr, 0 mls/hr Albumin Human (Albumin 25%) 25 gm in 100 mls @ 25 mls/hr IV DAILY ANGELA Stop: 02/27/18 12:59 Last Admin: 02/27/18 08:58 Dose: 25 mls/hr Albumin Human (Albumin 25%) 25 gm in 100 mls @ 25 mls/hr IV Q24H [facility]GELA Stop: 02/27/18 16:59 Last Admin: 02/27/18 14:04 Dose: 25 mls/hr Potassium Phosphate 22.5 mmole (/ Sodium Chloride) 107.5 mls @ 35 mls/hr IV Q3H ANGELA Stop: 02/24/18 15:59 Last Admin: 02/24/18 13:01 Dose: 35 mls/hr Vancomycin HCl 1 gm/ Sodium (Chloride) 250 mls @ 167 mls/hr IV Q24H [facility] Last Admin: 02/26/18 11:05 Dose: 167 mls/hr Linezolid (Zyvox) Confirm Administered Dose 300 mls @ as directed .ROUTE .STK- MED ONE Stop: 02/25/18 11:02 Magnesium Sulfate 2 gm/ Premix 50 mls @ 25 mls/hr IV Q6H ANGELA Stop: 02/26/18 04:59 Last Admin: 02/26/18 03:00 Dose: 25 mls/hr Potassium Phosphate 22.5 mmole (/ Sodium Chloride) 107.5 mls @ 35 mls/hr IV Q3H ANGELA Stop: 02/26/18 15:29 Last Admin: 02/26/18 13:23 Dose: 35 mls/hr Acetaminophen 1,000 mg/ Premix 100 mls @ 400 mls/hr IV NOW ONE Stop: 02/26/18 22:40 Last Admin: 02/26/18 22:43 Dose: 400 mls/hr Potassium Phosphate 22.5 mmole (/ Sodium Chloride) 107.5 mls @ 35 mls/hr IV Q3H [facility] Stop: 02/27/18 15:29 Last Admin: 02/27/18 14:21 Dose: 35 mls/hr Ibuprofen (Motrin) 400 mg PO Q6H [facility] Last Admin: 02/17/18 08:22 Dose: 400 mg Insulin Aspart (Novolog) Confirm Administered Dose 300 unit .ROUTE .STK-[facility] ONE Stop: 02/23/18 06:25 Last Admin: 02/23/18 06:43 Dose: 10 units Insulin Aspart (Novolog) 0 unit SUBCUT Q6H PRN; Protocol PRN Reason: MEDIUM CORRECTIONAL DOSE Last Admin: 02/23/18 12:17 Dose: 12 units Insulin Detemir (Levemir) Confirm Administered Dose 300 unit .ROUTE .ST-[facility] ONE Stop: 02/23/18 06:09 Last Admin: 02/23/18 06:43 Dose: 10 units Insulin Detemir (Levemir) 10 unit SUBCUT Q12H [facility] Last Admin: 02/24/18 06:11 Dose: 10 units Isosorbide Mononitrate (Imdur) 30 mg PO DAILY [facility] Last Admin: 02/22/18 09:00 Dose: Not Given Ketamine HCl (Ketalar) 25 mg IV ASDIRECTED [facility] Ketorolac Tromethamine (Toradol) Confirm Administered Dose 60 mg .ROUTE .STK- MED ONE Stop: 02/25/18 09:07 Levothyroxine Sodium (Levothyroxine) 75 mcg PO ACBREAKFAST [facility] Last Admin: 02/22/18 08:31 Dose: Not Given Lidocaine HCl (Xylocaine-Mpf 1%) Confirm Administered Dose 5 ml .ROUTE .STK-MED ONE Stop: 02/14/18 12:41 Last Admin: 02/14/18 16:48 Dose: Not Given Lidocaine HCl (Xylocaine-Mpf 1%) 0.1 ml INJECT ONETIME ONE Stop: 02/14/18 12:43 Last Admin: 02/14/18 16:48 Dose: Not Given Lidocaine/Epinephrine (Xylocaine 1% With Epinephrine 1:100,000) Confirm Administered Dose 50 ml .ROUTE .STK-MED ONE Stop: 02/16/18 06:45 Last Admin: 02/16/18 07:44 Dose: 10 ml Lidocaine/Epinephrine (Xylocaine 1% With Epinephrine 1:100,000) Confirm Administered Dose 50 ml .ROUTE .STK-MED ONE Stop: 02/27/18 07:44 Last Admin: 02/27/18 11:09 Dose: 16.5 ml Linezolid (Zyvox) 600 mg IRR .STK-MED ONE Stop: 02/25/18 12:21 Last Admin: 02/25/18 12:20 Dose: 600 mg Magnesium Hydroxide (Milk Of Magnesia) 30 ml PO BID ANGELA Stop: 02/16/18 21:01 Last Admin: 02/16/18 20:18 Dose: 30 ml Magnesium Hydroxide (Milk Of Magnesia) 30 ml PO ASDIRECTED PRN PRN Reason: * Melatonin (Melatonin) 9 mg PO BEDTIME PRN PRN Reason: Insomnia Last Admin: 02/22/18 00:39 Dose: 9 mg Meperidine HCl (Demerol) 75 mg IM ONETIME ONE Stop: 02/17/18 11:01 Last Admin: 02/17/18 11:00 Dose: 75 mg Meropenem (Merrem) Confirm Administered Dose 500 mg .ROUTE .STK-MED ONE Stop: 02/14/18 08:44 Last Admin: 02/14/18 14:30 Dose: 500 mg Meropenem (Merrem) Confirm Administered Dose 500 mg .ROUTE .STK-MED ONE Stop: 02/16/18 06:45 Last Admin: 02/16/18 07:49 Dose: 500 mg Meropenem (Merrem) Confirm Administered Dose 500 mg .ROUTE .STK-MED ONE Stop: 02/22/18 05:07 Meropenem (Merrem) Confirm Administered Dose 1,500 mg .ROUTE .STK-MED ONE Stop: 02/22/18 05:51 Meropenem (Merrem) Confirm Administered Dose 500 mg .ROUTE .STK-MED ONE Stop: 02/22/18 06:05 Last Admin: 02/22/18 06:00 Dose: 3,500 mg Meropenem (Merrem) Confirm Administered Dose 1,000 mg .ROUTE .STK-MED ONE Stop: 02/22/18 06:40 Meropenem (Merrem) 1,000 mg IRR ONETIME ONE Stop: 02/22/18 07:31 Last Admin: 02/22/18 07:30 Dose: 1,000 mg Meropenem (Merrem) Confirm Administered Dose 1,000 mg .ROUTE .STK-MED ONE Stop: 02/23/18 06:39 Last Admin: 02/23/18 10:18 Dose: 1,500 mg Meropenem (Merrem) Confirm Administered Dose 500 mg .ROUTE .STK-MED ONE Stop: 02/27/18 07:44 Last Admin: 02/27/18 11:09 Dose: 500 mg Methylprednisolone Sodium Succinate (Solu-Medrol) 40 mg IVPUSH Q12H [facility] Last Admin: 02/22/18 01:34 Dose: 40 mg Metoclopramide HCl (Reglan) 10 mg IVPUSH Q8H [facility] Last Admin: 02/22/18 01:34 Dose: 10 mg Midazolam HCl (Versed 1 Mg/Ml) Confirm Administered Dose 10 mg .ROUTE .STK-MED ONE Stop: 02/27/18 09:30 Last Admin: 02/27/18 12:28 Dose: Not Given Midazolam HCl (Versed 1 Mg/Ml) 6 mg IV ONETIME ONE Stop: 02/27/18 10:01 Last Admin: 02/27/18 09:30 Dose: 6 mg Naloxone HCl (Narcan) 0.1 mg IVPUSH Q5M PRN PRN Reason: RESP RATE LESS THAN 6/MINUTE Last Admin: 02/15/18 15:23 Dose: 0.1 mg Neostigmine Methylsulfate (Neostigmine) Confirm Administered Dose 5 mg .ROUTE .STK-MED ONE Stop: 02/14/18 09:36 Neostigmine Methylsulfate (Neostigmine) Confirm Administered Dose 5 mg .ROUTE .STK-MED ONE Stop: 02/22/18 04:44 Nitroglycerin (Nitrostat) 0.4 mg SL ASDIRECTED PRN PRN Reason: CHEST PAIN Fentanyl Patch Check 1 each TOP BID ANGELA Last Admin: 02/27/18 09:00 Dose: Not Given Ondansetron HCl (Zofran) Confirm Administered Dose 4 mg .ROUTE .STK-MED ONE Stop: 02/14/18 09:36 Ondansetron HCl (Zofran) 4 mg IVPUSH Q4H PRN PRN Reason: NAUSEA Last Admin: 02/22/18 00:43 Dose: 4 mg Ondansetron HCl (Zofran) Confirm Administered Dose 4 mg .ROUTE .STK-MED ONE Stop: 02/22/18 04:44 Pantoprazole Sodium (Protonix Iv) 40 mg IV Q24H [facility] Last Admin: 02/16/18 17:44 Dose: 40 mg Pantoprazole Sodium (Protonix) 40 mg PO ACBREAKFAST [facility] Last Admin: 02/22/18 10:05 Dose: Not Given Trans-Derm Scop (Patch Removal) 0 each TOP ONETIME ONE Stop: 02/16/18 14:01 Last Admin: 02/16/18 15:05 Dose: Not Given Phenylephrine HCl (Manuel-Synephrine) Confirm Administered Dose 10 mg .ROUTE .STK- MED ONE Stop: 02/22/18 05:40 Piperacillin Sod/Tazobactam Sod (Zosyn) 3.375 gm .ROUTE .STK-MED ONE Stop: 02/25/18 13:01 Prednisone (Prednisone) 2.5 mg PO DAILY [facility] Last Admin: 02/18/18 09:45 Dose: 2.5 mg Prednisone (Prednisone) 10 mg PO DAILY [facility] Last Admin: 02/18/18 11:38 Dose: 10 mg Propofol (Diprivan 20 Ml) Confirm Administered Dose 200 mg .ROUTE .STK-MED ONE Stop: 02/14/18 09:36 Propofol (Diprivan 20 Ml) Confirm Administered Dose 200 mg .ROUTE .STK-MED ONE Stop: 02/16/18 07:10 Propofol (Diprivan 20 Ml) Confirm Administered Dose 200 mg .ROUTE .STK-MED ONE Stop: 02/22/18 04:44 Propofol (Diprivan 20 Ml) Confirm Administered Dose 200 mg .ROUTE .STK-MED ONE Stop: 02/23/18 06:59 Rocuronium [place] (Zemuron) Confirm Administered Dose 50 mg .ROUTE .STK-MED ONE Stop: 02/14/18 09:36 Rocuronium [place] (Zemuron) Confirm Administered Dose 50 mg .ROUTE .STK-MED ONE Stop: 02/22/18 04:44 Rocuronium [place] (Zemuron) Confirm Administered Dose 50 mg .ROUTE .STK-MED ONE Stop: 02/23/18 06:59 Rocuronium [place] (Zemuron) Confirm Administered Dose 50 mg .ROUTE .STK-MED ONE Stop: 02/25/18 09:02 Scopolamine (Transderm-Scop) 1.5 mg TOP ONETIME ONE Stop: 02/14/18 08:16 Last Admin: 02/14/18 08:32 Dose: 1.5 mg Senna (Senna) 8.6 mg PO BEDTIME [facility] Last Admin: 02/15/18 21:24 Dose: 8.6 mg Senna (Senna) 17.2 mg PO BEDTIME [facility] Last Admin: 02/21/18 20:54 Dose: 17.2 mg Succinylcholine Chloride (Quelicin) Confirm Administered Dose 200 mg .ROUTE .STK -MED ONE Stop: 02/14/18 09:36 Succinylcholine Chloride (Quelicin) Confirm Administered Dose 200 mg .ROUTE .STK -MED ONE Stop: 02/22/18 04:44 Theophylline (Pablito-24) 400 mg PO DAILY [facility] Last Admin: 02/19/18 09:31 Dose: 400 mg Tramadol HCl (Ultram) 50 mg PO Q6H PRN PRN Reason: PAIN Last Admin: 02/17/18 04:00 Dose: 50 mg Vancomycin HCl (Vancomycin) 1 gm IV .PHARMACY TO DOSE ANGELA Stop: 02/24/18 12:00 - Exam Quality Assessment: Supplemental Oxygen, Central Line/PICC, Urine Catheter, Restraints General: No Acute Distress, Sedated. No: Alert HEENT: Pupils Equal Neck: Supple Lungs: Normal Respiratory Effort, Crackles (rare right lung base) Cardiovascular: Regular Rate, Regular Rhythm, Murmurs GI/Abdominal Exam: Soft, No Distention, Abnormal Bowel Sounds (hypoactive) Extremities: Pedal Edema (L>R), Other (swelling of both arms, R>L) Skin: Warm, Dry Psy/Mental Status: No: Alert, Anxious Consult PN Assessment/Plan Procedures: Procedures AGENT NOS ASSAY W/OPTIC (01/19/18) AIRWAY INHALATION TREATMENT (01/19/18) ASSAY OF AMYLASE (01/02/18) ASSAY OF LIPASE (01/19/18) ASSAY OF MAGNESIUM (01/19/18) ASSAY OF PHOSPHORUS (01/19/18) ASSAY OF SERUM POTASSIUM (01/19/18) ASSAY THYROID STIM HORMONE (01/19/18) C DIFF AMPLIFIED PROBE (01/19/18) C-REACTIVE PROTEIN (01/19/18) CARDIOVASCULAR STRESS TEST (04/12/16) CHEST WALL MANIPULATION (12/19/17) CHEST WALL MANIPULATION (12/19/17) COMP SCREEN MAMMOGRAM ADD-ON (04/05/15) COMPLETE CBC AUTOMATED (01/19/18) COMPLETE CBC W/AUTO DIFF WBC (01/19/18) COMPREHEN METABOLIC PANEL (01/19/18) CT ABD & PELV W/CONTRAST (01/19/18) CT ABD & PELVIS W/O CONTRAST (01/02/18) CULTURE AEROBIC IDENTIFY (12/19/17) CULTURE OTHR SPECIMN AEROBIC (12/19/17) CULTURE SCREEN ONLY (10/09/17) EGD BIOPSY SINGLE/MULTIPLE (10/09/17) EMERGENCY DEPT VISIT (01/19/18) EMERGENCY DEPT VISIT (01/19/18) HT MUSCLE IMAGE SPECT MULT (04/12/16) HYDRATE IV INFUSION ADD-ON (01/19/18) LEUKOCYTE ASSESSMENT FECAL (01/02/18) MANUAL THERAPY 1/> REGIONS (02/12/18) METABOLIC PANEL TOTAL CA (01/19/18) NEUROMUSCULAR REEDUCATION (12/17/17) OVA AND PARASITES SMEARS (01/19/18) PROTHROMBIN TIME (01/19/18) PT EVAL MOD COMPLEX 30 MIN (08/13/17) ROUTINE VENIPUNCTURE (01/19/18) SMEAR COMPLEX STAIN (01/19/18) SMEAR GRAM STAIN (12/19/17) STOOL CULTR AEROBIC BACT EA (01/19/18) THER/PROPH/DIAG INJ IV PUSH (01/19/18) THERAPEUTIC EXERCISES (12/17/17) TISSUE EXAM BY PATHOLOGIST (10/09/17) TX/PRO/DX INJ SAME DRUG LEARNING SUPPORT TEACHER (01/02/18) ULTRASOUND THERAPY (02/12/18) X-RAY EXAM ABDOMEN 2 VIEWS (01/02/18) X-RAY EXAM OF SHOULDER (07/26/17) Problem List Initiated/Reviewed/Updated: Yes Plan: ASSESSMENT AND RECOMMENDATIONS INTRA-ABDOMINAL INFECTION WITH SEPSIS - Intra-abdominal cultures growing enterococcus and yeast. Sepsis has resolved at this point. She does continue to have some nocturnal temperature elevations but repeat cultures have been negative. 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 -Continue current antibiotic therapy with meropenem, vancomycin and fluconazole (plan for 8 days of therapy) -Follow-up cultures -Judicious IV fluid use HYPOXIC RESPIRATORY FAILURE - likely secondary to COPD with contribution from volume overload. On minimal ventilator support at this time. Will need additional diuresis today. lethargy still hampering extubation. Did fairly well with CPAP and has favorable weaning parameters otherwise. -Sedation holiday today as tolerated -Spontaneous breathing trials daily -Continue nebulizer therapy Anemia due to acute illness and blood loss - hemoglobin 12 this morning. -I would recommend avoiding transfusion unless hemoglobin is less than 8 or there is active bleeding or hemodynamic instability Severe thrombocytopenia - Suspect combination of sepsis and possible disseminated intravascular coagulation. HIT workup was negative. Platelet level lower today than yesterday but no evidence for bleeding. -Transfuse if less than 10,000 or bleeding -Daily laboratory studies TYPE 2 DIABETES MELLITUS - sugars have stabilized. -Discontinue long acting insulin -Monitor sugars, restart insulin if indicated ACUTE KIDNEY INJURY - renal function has been stable after volume status was optimized. -Continue closely monitor urine output and renal function Holger Zambrano M.D.
--- NOTE | 2018-02-28 10:44 | CR ---
Chest 1V Frontal INDICATION: assess cvl placement COMPARISON: Exam same day at 0303 hours FINDINGS: AP portable chest. A second central venous catheter has been placed, with tip extending superiorly in the neck above the top edge of the image. No pneumothorax. ET tube remains in good position mid trachea and previous right IJ central line remains in good posit ion with tip in the right atrium. Given supine view, no other change in the chest with bilateral pleural effusions and vascular congest ion.
[2018-02-28] MEDS: Dextrose 5%-Lactated Ringers 1,000 ML IV SCH (12:31)
[2018-02-28] MEDS: Pantoprazole 40 MG Vial IV SCH (12:34)
--- NOTE | 2018-02-28 22:45 | OR ---
DATE OF PROCEDURE: 02/28/2018 PREOPERATIVE DIAGNOSIS: Low-grade fever associated with longstanding central line. POSTOPERATIVE DIAGNOSIS: Placement of right subclavian vein triple-lumen catheter ([id number]). ANESTHESIA: Local. INDICATION FOR PROCEDURE: The patient is running some low-grade temperatures and wishing to change the central line. At this time, a new right subclavian line will be placed and the present right internal jugular vein line will be removed after that is in position. Potential risks of the procedure were reviewed with the patient's daughter including bleeding, infection, pneumothorax and such were reviewed. The patient's platelet count is 28,000, but we will just need to be extra careful in terms of not hitting an artery during this insertion. DETAILS OF PROCEDURE: The patient was placed in the supine position in the ICU, and the right upper chest and neck areas were prepped and draped. The right subclavian vein was cannulated. A guidewire was passed, and over the guidewire, a triple-lumen catheter was inserted. The catheter was sutured to the skin with some 3-0 Vicryl stitch. The ports were flushed with saline. The dressing was applied after the catheter was sutured in place. Chest x-ray showed no complications. The line is going up into the neck, but at this point, that should be a satisfactory location for its present use. The other line will be removed per Nursing presently. Robert Pate MD /[id number]
[2018-03-01] MEDS: Albuterol/Ipratropium 3.0-0.5 MG/3 ML Neb Soln INH SCH ×4 (07:04→20:22)
[2018-03-01] MEDS: Budesonide 0.5 MG/2 ML Neb Susp INH SCH ×2 (07:04→20:22)
[2018-03-01] MEDS: Dextrose 5%-Lactated Ringers 1,000 ML IV SCH (08:19)
--- NOTE | 2018-03-01 08:48 | CR ---
Chest 1V Frontal INDICATION: intubated COMPARISON: 02/28/2018 FINDINGS: 2 AP portable views of the chest. ET tube remains mid trachea. IJ central line is been removed. Right subclavian central line with tip extending superiorly off the top edge of the image remains in place. Bibasilar infiltrates, pleural effusions and vascular congestion unchanged. No significant change in heart size. Pacer device. Postoperative changes and drains in the upper abdomen.
[2018-03-01] MEDS: Fluconazole/Normal Saline 200 MG in Premix Bag 1 BAG IV SCH (09:00)
--- NOTE | 2018-03-01 09:19 | PCM.CONSN ---
- General Info Date of Service: 03/01/18 - Review of Systems General: Reports: Fever Systems Review Comment:: There were no acute events overnight. Patient remained obtunded throughout the night and a head CT was undertaken this morning. The head CT did not show acute changes or bleed. After returning from the CAT scan her mental status has improved. She is alert and answering yes or no questions. She is following commands and able to squeeze fingers with her left arm but not with the right. She is tachypneic with respiratory rates in the low to mid 30s. Optimal title volume of only about 350 mL. Rapid shallow breathing index calculation is around 100. - Patient Data Vitals - Most Recent: Last Vital Signs Temp 38.0 C 03/01/18 08:00 Pulse 113 H 03/01/18 08:00 Resp 26 H 03/01/18 08:00 BP 151/72 H 03/01/18 08:00 Pulse Ox 98 03/01/18 08:00 Weight - Most Recent: 44.815 kg I&O - Last 24 Hours: Intake & Output 02/28/18 03/01/18 03/01/18 22:59 06:59 14:59 Intake Total 1177 636 Output Total 701 527 125 Balance 476 109 -125 Lab Results Last 24 Hours: Laboratory Results - last 24 hr 03/01/18 03/01/18 03/01/18 Range/Units 04:30 04:30 04:30 WBC 3.2 L (4.5-11.0) K/uL RBC 3.85 (3.30-5.50) M/uL Hgb 11.1 L (12.0-15.0) g/dL Hct 33.0 L (36.0-48.0) % MCV 86 (80-98) fL MCH 29 (27-31) pg MCHC 34 (32-36) % Plt Count 35 L (150-400) K/uL Puncture Site R brachial ABG pH 7.462 H (7.350-7.450) ABG pCO2 37.3 (35.0-42.0) mmHg ABG pO2 92.3 (75.0-100.0) mmHg ABG HCO3 26.3 H (22.0-26.0) mmol/L ABG Total CO2 23.8 (21.0-25.0) mmol/L ABG O2 Saturation 97.4 (95.0-98.0) % ABG O2 Content 14.8 L (15.0-23.0) %vol ABG Base Excess 2.9 mm/L ABG Hemoglobin 11.0 L (12.0-16.0) g/dL ABG Oxyhemoglobin 95.4 % ABG Carboxyhemoglobin 1.4 (0.0-1.6) % ABG Methemoglobin 0.7 % O2 Delivery Device Ventilator Oxygen Flow Rate L Sodium 143 (140-148) mmol/L Potassium 3.6 (3.6-5.2) mmol/L Chloride 109 H (100-108) mmol/L Carbon Dioxide 27 (21-32) mmol/L Anion Gap 10.6 (5.0-14.0) mmol/L BUN 16 (7-18) mg/dL Creatinine 0.8 (0.6-1.0) mg/dL Est Cr Clr Drug Dosing 38.36 mL/min Estimated GFR (MDRD) > 60 (>60) Glucose 116 H (74-106) mg/dL Lactic Acid (0.4-2.0) mmol/L Calcium 7.8 L (8.5-10.1) mg/dL Phosphorus 3.5 (2.5-4.9) mg/dL Magnesium 1.7 L (1.8-2.4) mg/dL Total Bilirubin 1.9 H (0.2-1.0) mg/dL AST 46 H (15-37) U/L ALT 17 (12-78) U/L Alkaline Phosphatase 66 (46-116) U/L Total Protein 4.2 L (6.4-8.2) g/dL Albumin 1.5 L (3.4-5.0) g/dL Globulin 2.7 (2.3-3.5) g/dL Albumin/Globulin Ratio 0.6 L (1.2-2.2) 03/01/18 Range/Units 04:30 WBC (4.5-11.0) K/uL RBC (3.30-5.50) M/uL Hgb (12.0-15.0) g/dL Hct (36.0-48.0) % MCV (80-98) fL MCH (27-31) pg MCHC (32-36) % Plt Count (150-400) K/uL Puncture Site ABG pH (7.350-7.450) ABG pCO2 (35.0-42.0) mmHg ABG pO2 (75.0-100.0) mmHg ABG HCO3 (22.0-26.0) mmol/L ABG Total CO2 (21.0-25.0) mmol/L ABG O2 Saturation (95.0-98.0) % ABG O2 Content (15.0-23.0) %vol ABG Base Excess mm/L ABG Hemoglobin (12.0-16.0) g/dL ABG Oxyhemoglobin % ABG Carboxyhemoglobin (0.0-1.6) % ABG Methemoglobin % O2 Delivery Device Oxygen Flow Rate L Sodium (140-148) mmol/L Potassium (3.6-5.2) mmol/L Chloride (100-108) mmol/L Carbon Dioxide (21-32) mmol/L Anion Gap (5.0-14.0) mmol/L BUN (7-18) mg/dL Creatinine (0.6-1.0) mg/dL Est Cr Clr Drug Dosing mL/min Estimated GFR (MDRD) (>60) Glucose (74-106) mg/dL Lactic Acid 2.3 H (0.4-2.0) mmol/L Calcium (8.5-10.1) mg/dL Phosphorus (2.5-4.9) mg/dL Magnesium (1.8-2.4) mg/dL Total Bilirubin (0.2-1.0) mg/dL AST (15-37) U/L ALT (12-78) U/L Alkaline Phosphatase (46-116) U/L Total Protein (6.4-8.2) g/dL Albumin (3.4-5.0) g/dL Globulin (2.3-3.5) g/dL Albumin/Globulin Ratio (1.2-2.2) Kash Results Last 24 Hours: Microbiology 02/26/18 07:09 Aerobic Blood Culture - Preliminary Blood - Arm, Right NO GROWTH AFTER 3 DAYS Anaerobic Blood Culture - Preliminary NO GROWTH AFTER 3 DAYS 02/26/18 06:40 Aerobic Blood Culture - Preliminary Blood - Central Line NO GROWTH AFTER 3 DAYS Anaerobic Blood Culture - Preliminary NO GROWTH AFTER 3 DAYS 02/25/18 12:30 Gram Stain - Final Abdominal Fluid - Drainage Wound Culture - Final Enterococcus Faecium YEAST Anaerobic Culture - Final NO GROWTH AFTER 3 DAYS 02/28/18 08:15 Catheter Tip Culture - Preliminary Catheter Tip Other - Vega Catheter 02/28/18 05:20 Aerobic Blood Culture - Preliminary Blood - Arm, Left NO GROWTH AFTER 1 DAY Anaerobic Blood Culture - Preliminary NO GROWTH AFTER 1 DAY 02/28/18 05:15 Aerobic Blood Culture - Preliminary Blood - A-Line Anaerobic Blood Culture - Preliminary 02/26/18 22:35 Aerobic Blood Culture - Preliminary Blood - Central Line NO GROWTH AFTER 2 DAYS Anaerobic Blood Culture - Preliminary NO GROWTH AFTER 2 DAYS 02/27/18 10:35 Aerobic Blood Culture - Preliminary Blood - Arm, Left NO GROWTH AFTER 1 DAY Anaerobic Blood Culture - Preliminary NO GROWTH AFTER 1 DAY 02/27/18 10:07 Aerobic Blood Culture - Preliminary Blood - Central Line NO GROWTH AFTER 1 DAY Anaerobic Blood Culture - Preliminary NO GROWTH AFTER 1 DAY Med Orders - Current: Current Medications Albuterol/Ipratropium (Duoneb 3.0-0.5 Mg/3 Ml) 3 ml INH ASDIRECTED PRN PRN Reason: RESP Last Admin: 02/17/18 18:57 Dose: 3 ml Albuterol/Ipratropium (Duoneb 3.0-0.5 Mg/3 Ml) 3 ml INH QIDRT [facility] Last Admin: 03/01/18 07:04 Dose: 3 ml Budesonide (Pulmicort) 0.5 mg INH BIDRT [facility] Last Admin: 03/01/18 07:04 Dose: 0.5 mg Dextrose (Glutose 15) 15 gm PO ASDIRECTED PRN PRN Reason: HYPOGLYCEMIA Dextrose/Water (Dextrose 50% In Water) 50 ml IVPUSH ASDIRECTED PRN PRN Reason: HYPOGLYCEMIA Glucagon (Glucagen) 1 mg IM ASDIRECTED PRN PRN Reason: HYPOGLYCEMIA Hydromorphone HCl (Dilaudid Installer Molding And Trim 15 Mg In Ns 30 Ml) 15 mg IV ASDIRECTED [facility]; Protocol Last Admin: 02/25/18 08:34 Dose: 15 mg Meropenem 1 gm/ Sodium (Chloride) 50 mls @ 100 mls/hr IV Q12H [facility] Last Admin: 03/01/18 04:37 Dose: 100 mls/hr Fluconazole/Sodium Chloride (200 mg/ Premix) 100 mls @ 100 mls/hr IV Q24H [facility] Last Admin: 03/01/18 09:00 Dose: 100 mls/hr Dextrose/Lactated Ringer's (Dextrose 5%-Lactated Ringers) 1,000 mls @ 50 mls/ hr IV ASDIRECTED [facility] Last Admin: 03/01/18 08:19 Dose: 50 mls/hr Vancomycin HCl 1.25 gm/ Sodium (Chloride) 250 mls @ 167 mls/hr IV Q24H [facility] Last Admin: 02/28/18 12:30 Dose: 167 mls/hr Naloxone HCl (Narcan) 0.1 mg IV ASDIRECTED PRN PRN Reason: decreased respiratory rate Pantoprazole Sodium (Protonix Iv) 40 mg IV Q24H [facility] Last Admin: 02/28/18 12:34 Dose: 40 mg Discontinued Medications Acetaminophen (Tylenol Extra Strength) 1,000 mg PO ONETIME ONE Stop: 02/14/18 08:16 Last Admin: 02/14/18 08:31 Dose: 1,000 mg Acetaminophen (Tylenol) 650 mg PO Q6H [facility] Last Admin: 02/22/18 08:00 Dose: Not Given Albuterol/Ipratropium (Duoneb 3.0-0.5 Mg/3 Ml) 3 ml NEB ONETIME ONE Stop: 02/14/18 09:46 Last Admin: 02/14/18 12:32 Dose: 3 ml Allopurinol (Zyloprim) 150 mg PO DAILY [facility] Last Admin: 02/21/18 08:06 Dose: 150 mg Alvimopan (Entereg) 12 mg PO ONETIME ONE Stop: 02/14/18 08:16 Last Admin: 02/14/18 08:31 Dose: 12 mg Alvimopan (Entereg) 12 mg PO BID [facility] Stop: 02/21/18 09:01 Last Admin: 02/21/18 08:05 Dose: 12 mg Aspirin (Halfprin) 81 mg PO DAILY [facility] Last Admin: 02/22/18 09:00 Dose: Not Given Aztreonam (Azactam) Confirm Administered Dose 1 gm .ROUTE .STK-MED ONE Stop: 02/22/18 06:21 Last Admin: 02/22/18 06:20 Dose: 2 gm Aztreonam (Azactam) Confirm Administered Dose 1 gm .ROUTE .STK-MED ONE Stop: 02/22/18 06:21 Bisacodyl (Dulcolax) 10 mg PO BID [facility] Last Admin: 02/22/18 09:00 Dose: Not Given Bisacodyl (Dulcolax) 10 mg RECTAL TID [facility] Last Admin: 02/21/18 21:01 Dose: 10 mg Bisacodyl (Dulcolax) 10 mg RECTAL ONETIME ONE Stop: 02/21/18 10:01 Last Admin: 02/21/18 09:37 Dose: Not Given Bupivacaine HCl (Marcaine 0.5%) Confirm Administered Dose 50 ml .ROUTE .[facility] ONE Stop: 02/16/18 06:45 Last Admin: 02/16/18 07:44 Dose: 10 ml Bupivacaine HCl (Marcaine 0.5%) Confirm Administered Dose 50 ml .ROUTE .[facility]-MED ONE Stop: 02/27/18 07:44 Last Admin: 02/27/18 11:08 Dose: 16.5 ml Carvedilol (Coreg) 3.125 mg PO BIDMEALS [facility] Last Admin: 02/21/18 17:39 Dose: 3.125 mg Cefoxitin Sodium (Mefoxin) Confirm Administered Dose 2 gm .ROUTE .[facility]-MED ONE Stop: 02/14/18 08:44 Ropivacaine 25 ml/Dexamethasone 8 mg/Epinephrine HCl 0.4 mg/ Sodium Chloride 52.6 ml 0 ml NERVRT ASDIRECTED [facility] Neomycin/Polymyxin 1 ml/ (Sodium Chloride 500 ml) 0 ml IRR ONETIME ONE Stop: 02/14/18 08:16 Last Admin: 02/14/18 08:35 Dose: 750 irr Ropivacaine 25 ml/Dexamethasone 8 mg/Epinephrine HCl 0.4 mg/ Sodium Chloride 52.6 ml 0 ml NERVRT ASDIRECTED [facility] Last Admin: 02/16/18 07:59 Dose: 80 syringe Dexamethasone (Dexamethasone) Confirm Administered Dose 4 mg .ROUTE .[facility]-MED ONE Stop: 02/14/18 09:36 Dexamethasone (Dexamethasone) Confirm Administered Dose 4 mg .ROUTE .K-MED ONE Stop: 02/22/18 04:44 Dextrose/Water (Dextrose 50% In Water) 25 ml IVPUSH ONETIME ONE Stop: 02/25/18 02:21 Last Admin: 02/25/18 02:28 Dose: 25 ml Diphenhydramine HCl (Benadryl) 25 mg IVPUSH Q6H PRN PRN Reason: Itching Last Admin: 02/14/18 15:58 Dose: 25 mg Ephedrine Sulfate (Ephedrine Sulfate) Confirm Administered Dose 50 mg .ROUTE .[facility]-MED ONE Stop: 02/14/18 13:50 Ephedrine Sulfate (Ephedrine Sulfate) Confirm Administered Dose 50 mg .ROUTE .[facility] ONE Stop: 02/22/18 05:33 Erythromycin Ethylsuccinate (Eryped 400) 250 mg NGTUBE Q6H [facility] Last Admin: 02/22/18 04:26 Dose: Not Given Fentanyl (Sublimaze) Confirm Administered Dose 250 mcg .ROUTE .[facility] ONE Stop: 02/14/18 09:36 Fentanyl (Sublimaze) Confirm Administered Dose 100 mcg .ROUTE .[facility] ONE Stop: 02/16/18 07:10 Fentanyl (Sublimaze) Confirm Administered Dose 250 mcg .ROUTE .ST-MED ONE Stop: 02/22/18 04:44 Fentanyl (Duragesic) Confirm Administered Dose 12 mcg .ROUTE .ST-MED ONE Stop: 02/22/18 05:42 Last Admin: 02/22/18 05:51 Dose: 12 mcg Fentanyl (Duragesic) 12 mcg TRDERM Q72H [facility] Last Admin: 02/25/18 06:37 Dose: 12 mcg Fentanyl (Sublimaze) Confirm Administered Dose 100 mcg .ROUTE .ST-MED ONE Stop: 02/23/18 07:51 Fentanyl (Sublimaze) Confirm Administered Dose 250 mcg .ROUTE .STK-MED ONE Stop: 02/25/18 09:02 Furosemide (Lasix) 40 mg PO DAILY [facility] Last Admin: 02/18/18 09:45 Dose: 40 mg Furosemide (Lasix) 20 mg IVPUSH ONETIME STA Stop: 02/17/18 20:03 Last Admin: 02/17/18 20:30 Dose: 20 mg Furosemide (Lasix) 40 mg IVPUSH NOW ONE Stop: 02/17/18 21:33 Last Admin: 02/17/18 21:53 Dose: 40 mg Furosemide (Lasix) 20 mg IVPUSH NOW ONE Stop: 02/21/18 10:01 Last Admin: 02/21/18 09:50 Dose: 20 mg Furosemide (Lasix) 20 mg IV ASDIRECTED [facility] Stop: 02/26/18 23:00 Last Admin: 02/26/18 11:21 Dose: 20 mg Furosemide (Lasix) 10 mg IV ASDIRECTED [facility] Stop: 02/27/18 16:00 Furosemide (Lasix) 20 mg IV ONETIME ONE Stop: 02/27/18 12:01 Last Admin: 02/27/18 21:23 Dose: 20 mg Furosemide (Lasix) Confirm Administered Dose 20 mg .ROUTE .STK-MED ONE Stop: 02/27/18 21:22 Last Admin: 02/27/18 21:30 Dose: Not Given Glucagon (Glucagen) Confirm Administered Dose 1 mg .ROUTE .STK-MED ONE Stop: 02/14/18 14:26 Glycopyrrolate (Robinul) Confirm Administered Dose 1 mg .ROUTE .STK-MED ONE Stop: 02/14/18 09:36 Glycopyrrolate (Robinul) Confirm Administered Dose 1 mg .ROUTE .STK-MED ONE Stop: 02/22/18 04:44 Heparin Sodium (Porcine) (Heparin Lock Flush 100 Units/Ml) Confirm Administered Dose 500 units .ROUTE .STK-MED ONE Stop: 02/22/18 06:05 Last Admin: 02/22/18 08:30 Dose: 500 units Heparin Sodium (Porcine) (Heparin Sodium) Confirm Administered Dose 5,000 units .ROUTE .STK-MED ONE Stop: 02/22/18 07:34 Heparin Sodium (Porcine) (Heparin Sodium) Confirm Administered Dose 5,000 units .ROUTE .STK-MED ONE Stop: 02/22/18 09:11 Last Admin: 02/22/18 10:43 Dose: Not Given Hydromorphone HCl (Dilaudid Installer Molding And Trim 15 Mg In Ns 30 Ml) 0 mg IV ASDIRECTED PRN; Protocol PRN Reason: [employer] Last Admin: 02/19/18 06:32 Dose: 15 mg Hydromorphone HCl (Dilaudid Installer Molding And Trim 15 Mg In Ns 30 Ml) Confirm Administered Dose 15 mg IV .STK-MED ONE Stop: 02/17/18 10:18 Last Admin: 02/17/18 10:31 Dose: Not Given Hydroxyzine HCl (Vistaril) 0 mg IM Q4H PRN PRN Reason: PAIN Last Admin: 02/22/18 01:27 Dose: 75 mg Hydroxyzine HCl (Vistaril) 75 mg IM ONETIME ONE Stop: 02/17/18 11:01 Last Admin: 02/17/18 11:00 Dose: 75 mg Dextrose/Lactated Ringer's (Dextrose 5%-Lactated Ringers) 1,000 mls @ 100 mls/ hr IV ASDIRECTED [facility] Last Admin: 02/14/18 12:44 Dose: 100 mls/hr Meropenem 500 mg/ Sodium (Chloride) 50 mls @ 100 mls/hr IV ONETIME ONE Stop: 02/14/18 10:14 Last Admin: 02/14/18 12:59 Dose: 100 mls/hr Fentanyl 2,500 mcg/ Sodium (Chloride) 250 mls @ 0 mls/hr EPIDUR TITRATE [facility]; Protocol Fentanyl Citrate 2,500 mcg/ (Sodium Chloride) 250 mls @ 0 mls/hr EPIDUR TITRATE [facility]; Protocol Last Admin: 02/15/18 15:05 Dose: 8 mls/hr, 8 mls/hr Lactated Ringer's (Ringers, Lactated) Confirm Administered Dose 1,000 mls @ as directed .ROUTE .[facility] ONE Stop: 02/14/18 14:38 Dextrose/Lactated Ringer's (Dextrose 5%-Lactated Ringers) 1,000 mls @ 100 mls/ hr IV ASDIRECTED [facility] Dextrose/Lactated Ringer's (Dextrose 5%-Lactated Ringers) 1,000 mls @ 150 mls/ hr IV ASDIRECTED [facility] Last Admin: 02/15/18 02:48 Dose: 150 mls/hr Cefoxitin Sodium 2 gm/ Sodium (Chloride) 50 mls @ 100 mls/hr IV Q6H [facility] Last Admin: 02/17/18 08:48 Dose: 100 mls/hr Potassium Chloride/Dextrose/Sod Cl (D5 1/2 Ns W/ 20 Meq/L Kcl) 1,000 mls @ 80 mls/hr IV ASDIRECTED [facility] Last Admin: 02/15/18 09:37 Dose: 80 mls/hr Naloxone HCl 0.4 mg/ Potassium (Chloride/Dextrose/Sod Cl) 1,001 mls @ 80.08 mls /hr IV ASDIRECTED [facility] Last Admin: 02/16/18 04:38 Dose: 80.08 mls/hr Fentanyl Citrate 2,500 mcg/ (Sodium Chloride) 250 mls @ 4 mls/hr EPIDUR TITRATE [facility]; Protocol Last Admin: 02/15/18 22:56 Dose: 4 ml/hr, 4 mls/hr Potassium Chloride/Dextrose/Sod Cl (D5 1/2 Ns W/ 20 Meq/L Kcl) 1,000 mls @ 40 mls/hr IV ASDIRECTED [facility] Last Admin: 02/17/18 10:12 Dose: 100 mls/hr Potassium Phosphate 30 mmole/ (Sodium Chloride) 160 mls @ 54 mls/hr IV Q3H [facility] Stop: 02/17/18 16:58 Last Admin: 02/17/18 16:49 Dose: 54 mls/hr Dextrose/Lactated Ringer's (Dextrose 5%-Lactated Ringers) 1,000 mls @ 100 mls/ hr IV ASDIRECTED [facility] Last Admin: 02/19/18 08:52 Dose: 100 mls/hr Lactated Ringer's (Ringers, Lactated) 1,000 mls @ 250 mls/hr IV ASDIRECTED [facility] Stop: 02/18/18 14:31 Last Admin: 02/18/18 11:28 Dose: 250 mls/hr Acetaminophen 1,000 mg/ Premix 100 mls @ 400 mls/hr IV NOW ONE Stop: 02/18/18 11:16 Last Admin: 02/18/18 11:33 Dose: Not Given Dextrose/Lactated Ringer's (Dextrose 5%-Lactated Ringers) 1,000 mls @ 75 mls/ hr IV ASDIRECTED [facility] Last Admin: 02/20/18 23:39 Dose: 75 mls/hr Potassium Phosphate 22.5 mmole (/ Sodium Chloride) 257.5 mls @ 86 mls/hr IV Q3H [facility] Stop: 02/21/18 15:59 Last Admin: 02/21/18 12:55 Dose: 86 mls/hr Dextrose/Lactated Ringer's (Dextrose 5%-Lactated Ringers) 1,000 mls @ 50 mls/ hr IV ASDIRECTED [facility] Last Admin: 02/21/18 16:35 Dose: 50 mls/hr Meropenem 500 mg/ Sodium (Chloride) 50 mls @ 100 mls/hr IV ONETIME ONE Stop: 02/22/18 04:48 Last Admin: 02/22/18 05:30 Dose: 100 mls/hr Lactated Ringer's (Ringers, Lactated) Confirm Administered Dose 1,000 mls @ as directed .ROUTE .STK-MED ONE Stop: 02/22/18 05:19 Sodium Chloride (Normal Saline) Confirm Administered Dose 250 mls @ as directed .ROUTE .K-MED ONE Stop: 02/22/18 06:14 Norepinephrine Bitartrate 4 mg (/ Dextrose/Water) 250 mls @ 7.5 mls/hr IV TITRATE [facility]; Protocol Last Titration: 02/22/18 10:29 Dose: 11 mcg/min, 41.25 mls/hr Lactated Ringer's (Ringers, Lactated) Confirm Administered Dose 1,000 mls @ as directed .ROUTE .[facility] ONE Stop: 02/22/18 07:12 Dextrose/Lactated Ringer's (Dextrose 5%-Lactated Ringers) 1,000 mls @ 100 mls/ hr IV ASDIRECTED [facility] Last Admin: 02/24/18 10:13 Dose: 100 mls/hr Propofol (Diprivan 100 Ml) 100 mls @ 1.46 mls/hr IV TITRATE [facility]; Protocol Last Admin: 02/24/18 01:41 Dose: 5 mcg/kg/min, 1.46 mls/hr Lactated Ringer's (Ringers, Lactated) 1,000 mls @ 125 mls/hr IV ASDIRECTED [facility] Last Admin: 02/24/18 10:15 Dose: 125 mls/hr Meropenem 500 mg/ Sodium (Chloride) 50 mls @ 100 mls/hr IV Q6H [facility] Last Admin: 02/22/18 10:31 Dose: 100 mls/hr Aztreonam/Dextrose 1 gm/ (Premix) 50 mls @ 100 mls/hr IV Q8H [facility] Last Admin: 02/24/18 01:31 Dose: 100 mls/hr Lactated Ringer's (Ringers, Lactated) 1,000 mls @ 999 mls/hr IV .BOLUS ONE Stop: 02/22/18 11:00 Last Admin: 02/22/18 10:00 Dose: 999 mls/hr Lactated Ringer's (Ringers, Lactated) 750 mls @ 999 mls/hr IV ONETIME ONE Stop: 02/22/18 12:00 Last Admin: 02/22/18 11:15 Dose: 999 mls/hr Norepinephrine Bitartrate 4 mg (/ Dextrose/Water) 250 mls @ 7.5 mls/hr IV TITRATE [facility]; Protocol Stop: 02/22/18 17:30 Last Titration: 02/22/18 17:02 Dose: 12 mcg/min, 45 mls/hr Lactated Ringer's (Ringers, Lactated) 1,000 mls @ 999 mls/hr IV ASDIRECTED ONE Stop: 02/22/18 14:30 Last Admin: 02/22/18 13:30 Dose: 999 mls/hr Lactated Ringer's (Ringers, Lactated) 1,000 mls @ 500 mls/hr IV ONETIME ONE Stop: 02/22/18 16:29 Last Admin: 02/22/18 14:19 Dose: 500 mls/hr Vasopressin 100 units/ (Dextrose/Water) 255 mls @ 1.53 mls/hr IV TITRATE [facility]; Protocol Vasopressin 100 units/ (Dextrose/Water) 255 mls @ 1.53 mls/hr IV TITRATE [facility]; Protocol Last Titration: 02/22/18 15:57 Dose: 0.02 units/min, 3.06 mls/hr Norepinephrine Bitartrate 8 mg (/ Dextrose/Water) 500 mls @ 7.5 mls/hr IV TITRATE [facility]; Protocol Last Titration: 02/24/18 08:50 Dose: 0 mcg/min, 0 mls/hr Lactated Ringer's (Ringers, Lactated) 1,000 mls @ 250 mls/hr IV ONETIME ONE Stop: 02/22/18 20:29 Last Infusion: 02/22/18 20:04 Dose: 125 mls/hr Magnesium Sulfate 2 gm/ Premix 50 mls @ 25 mls/hr IV Q6H [facility] Stop: 02/23/18 17:29 Last Admin: 02/23/18 14:31 Dose: 25 mls/hr Vasopressin 40 units/ Dextrose (/Water) 100 mls @ 1.5 mls/hr IV TITRATE [facility]; Protocol Last Titration: 02/23/18 17:02 Dose: 0 units/min, 0 mls/hr Insulin Human Regular 100 unit (/ Sodium Chloride) 101 mls @ 0.5 mls/hr IV TITRATE [facility]; Protocol Last Titration: 02/24/18 07:49 Dose: 0 units/hr, 0 mls/hr Albumin Human (Albumin 25%) 25 gm in 100 mls @ 25 mls/hr IV DAILY [facility] Stop: 02/27/18 12:59 Last Admin: 02/27/18 08:58 Dose: 25 mls/hr Albumin Human (Albumin 25%) 25 gm in 100 mls @ 25 mls/hr IV Q24H [facility] Stop: 02/27/18 16:59 Last Admin: 02/27/18 14:04 Dose: 25 mls/hr Potassium Phosphate 22.5 mmole (/ Sodium Chloride) 107.5 mls @ 35 mls/hr IV Q3H [facility] Stop: 02/24/18 15:59 Last Admin: 02/24/18 13:01 Dose: 35 mls/hr Vancomycin HCl 1 gm/ Sodium (Chloride) 250 mls @ 167 mls/hr IV Q24H [facility] Last Admin: 02/26/18 11:05 Dose: 167 mls/hr Linezolid (Zyvox) Confirm Administered Dose 300 mls @ as directed .ROUTE .STK- MED ONE Stop: 02/25/18 11:02 Magnesium Sulfate 2 gm/ Premix 50 mls @ 25 mls/hr IV Q6H [facility] Stop: 02/26/18 04:59 Last Admin: 02/26/18 03:00 Dose: 25 mls/hr Potassium Phosphate 22.5 mmole (/ Sodium Chloride) 107.5 mls @ 35 mls/hr IV Q3H [facility] Stop: 02/26/18 15:29 Last Admin: 02/26/18 13:23 Dose: 35 mls/hr Acetaminophen 1,000 mg/ Premix 100 mls @ 400 mls/hr IV NOW ONE Stop: 02/26/18 22:40 Last Admin: 02/26/18 22:43 Dose: 400 mls/hr Potassium Phosphate 22.5 mmole (/ Sodium Chloride) 107.5 mls @ 35 mls/hr IV Q3H [facility] Stop: 02/27/18 15:29 Last Admin: 02/27/18 14:21 Dose: 35 mls/hr Ibuprofen (Motrin) 400 mg PO Q6H [facility] Last Admin: 02/17/18 08:22 Dose: 400 mg Insulin Aspart (Novolog) Confirm Administered Dose 300 unit .ROUTE .STK-MED ONE Stop: 02/23/18 06:25 Last Admin: 02/23/18 06:43 Dose: 10 units Insulin Aspart (Novolog) 0 unit SUBCUT Q6H PRN; Protocol PRN Reason: MEDIUM CORRECTIONAL DOSE Last Admin: 02/23/18 12:17 Dose: 12 units Insulin Detemir (Levemir) Confirm Administered Dose 300 unit .ROUTE .STK-MED ONE Stop: 02/23/18 06:09 Last Admin: 02/23/18 06:43 Dose: 10 units Insulin Detemir (Levemir) 10 unit SUBCUT Q12H [facility] Last Admin: 02/24/18 06:11 Dose: 10 units Isosorbide Mononitrate (Imdur) 30 mg PO DAILY [facility] Last Admin: 02/22/18 09:00 Dose: Not Given Ketamine HCl (Ketalar) 25 mg IV ASDIRECTED [facility] Ketorolac Tromethamine (Toradol) Confirm Administered Dose 60 mg .ROUTE .STK- MED ONE Stop: 02/25/18 09:07 Levothyroxine Sodium (Levothyroxine) 75 mcg PO ACBREAKFAST [facility] Last Admin: 02/22/18 08:31 Dose: Not Given Lidocaine HCl (Xylocaine-Mpf 1%) Confirm Administered Dose 5 ml .ROUTE .STK-MED ONE Stop: 02/14/18 12:41 Last Admin: 02/14/18 16:48 Dose: Not Given Lidocaine HCl (Xylocaine-Mpf 1%) 0.1 ml INJECT ONETIME ONE Stop: 02/14/18 12:43 Last Admin: 02/14/18 16:48 Dose: Not Given Lidocaine/Epinephrine (Xylocaine 1% With Epinephrine 1:100,000) Confirm Administered Dose 50 ml .ROUTE .STK-MED ONE Stop: 02/16/18 06:45 Last Admin: 02/16/18 07:44 Dose: 10 ml Lidocaine/Epinephrine (Xylocaine 1% With Epinephrine 1:100,000) Confirm Administered Dose 50 ml .ROUTE .STK-MED ONE Stop: 02/27/18 07:44 Last Admin: 02/27/18 11:09 Dose: 16.5 ml Linezolid (Zyvox) 600 mg IRR .STK-MED ONE Stop: 02/25/18 12:21 Last Admin: 02/25/18 12:20 Dose: 600 mg Magnesium Hydroxide (Milk Of Magnesia) 30 ml PO BID [facility] Stop: 02/16/18 21:01 Last Admin: 02/16/18 20:18 Dose: 30 ml Magnesium Hydroxide (Milk Of Magnesia) 30 ml PO ASDIRECTED PRN PRN Reason: * Melatonin (Melatonin) 9 mg PO BEDTIME PRN PRN Reason: Insomnia Last Admin: 02/22/18 00:39 Dose: 9 mg Meperidine HCl (Demerol) 75 mg IM ONETIME ONE Stop: 02/17/18 11:01 Last Admin: 02/17/18 11:00 Dose: 75 mg Meropenem (Merrem) Confirm Administered Dose 500 mg .ROUTE .STK-MED ONE Stop: 02/14/18 08:44 Last Admin: 02/14/18 14:30 Dose: 500 mg Meropenem (Merrem) Confirm Administered Dose 500 mg .ROUTE .STK-MED ONE Stop: 02/16/18 06:45 Last Admin: 02/16/18 07:49 Dose: 500 mg Meropenem (Merrem) Confirm Administered Dose 500 mg .ROUTE .STK-MED ONE Stop: 02/22/18 05:07 Meropenem (Merrem) Confirm Administered Dose 1,500 mg .ROUTE .STK-MED ONE Stop: 02/22/18 05:51 Meropenem (Merrem) Confirm Administered Dose 500 mg .ROUTE .STK-MED ONE Stop: 02/22/18 06:05 Last Admin: 02/22/18 06:00 Dose: 3,500 mg Meropenem (Merrem) Confirm Administered Dose 1,000 mg .ROUTE .STK-MED ONE Stop: 02/22/18 06:40 Meropenem (Merrem) 1,000 mg IRR ONETIME ONE Stop: 02/22/18 07:31 Last Admin: 02/22/18 07:30 Dose: 1,000 mg Meropenem (Merrem) Confirm Administered Dose 1,000 mg .ROUTE .STK-MED ONE Stop: 02/23/18 06:39 Last Admin: 02/23/18 10:18 Dose: 1,500 mg Meropenem (Merrem) Confirm Administered Dose 500 mg .ROUTE .STK-MED ONE Stop: 02/27/18 07:44 Last Admin: 02/27/18 11:09 Dose: 500 mg Methylprednisolone Sodium Succinate (Solu-Medrol) 40 mg IVPUSH Q12H [facility] Last Admin: 02/22/18 01:34 Dose: 40 mg Metoclopramide HCl (Reglan) 10 mg IVPUSH Q8H [facility] [facility] Last Admin: 02/22/18 01:34 Dose: 10 mg Midazolam HCl (Versed 1 Mg/Ml) Confirm Administered Dose 10 mg .ROUTE .STK-MED ONE Stop: 02/27/18 09:30 Last Admin: 02/27/18 12:28 Dose: Not Given Midazolam HCl (Versed 1 Mg/Ml) 6 mg IV ONETIME ONE Stop: 02/27/18 10:01 Last Admin: 02/27/18 09:30 Dose: 6 mg Naloxone HCl (Narcan) 0.1 mg IVPUSH Q5M PRN PRN Reason: RESP RATE LESS THAN 6/MINUTE Last Admin: 02/15/18 15:23 Dose: 0.1 mg Neostigmine Methylsulfate (Neostigmine) Confirm Administered Dose 5 mg .ROUTE .STK-MED ONE Stop: 02/14/18 09:36 Neostigmine Methylsulfate (Neostigmine) Confirm Administered Dose 5 mg .ROUTE .STK-MED ONE Stop: 02/22/18 04:44 Nitroglycerin (Nitrostat) 0.4 mg SL ASDIRECTED PRN PRN Reason: CHEST PAIN Fentanyl Patch Check 1 each TOP BID [facility] Last Admin: 02/27/18 09:00 Dose: Not Given Ondansetron HCl (Zofran) Confirm Administered Dose 4 mg .ROUTE .STK-MED ONE Stop: 02/14/18 09:36 Ondansetron HCl (Zofran) 4 mg IVPUSH Q4H PRN PRN Reason: NAUSEA Last Admin: 02/22/18 00:43 Dose: 4 mg Ondansetron HCl (Zofran) Confirm Administered Dose 4 mg .ROUTE .STK-MED ONE Stop: 02/22/18 04:44 Pantoprazole Sodium (Protonix Iv) 40 mg IV Q24H [facility] Last Admin: 02/16/18 17:44 Dose: 40 mg Pantoprazole Sodium (Protonix) 40 mg PO ACBREAKFAST [facility] Last Admin: 02/22/18 10:05 Dose: Not Given Trans-Derm Scop (Patch Removal) 0 each TOP ONETIME ONE Stop: 02/16/18 14:01 Last Admin: 02/16/18 15:05 Dose: Not Given Phenylephrine HCl (Manuel-Synephrine) Confirm Administered Dose 10 mg .ROUTE .STK- MED ONE Stop: 02/22/18 05:40 Piperacillin Sod/Tazobactam Sod (Zosyn) 3.375 gm .ROUTE .STK-MED ONE Stop: 02/25/18 13:01 Prednisone (Prednisone) 2.5 mg PO DAILY [facility] Last Admin: 02/18/18 09:45 Dose: 2.5 mg Prednisone (Prednisone) 10 mg PO DAILY [facility] Last Admin: 02/18/18 11:38 Dose: 10 mg Propofol (Diprivan 20 Ml) Confirm Administered Dose 200 mg .ROUTE .STK-MED ONE Stop: 02/14/18 09:36 Propofol (Diprivan 20 Ml) Confirm Administered Dose 200 mg .ROUTE .STK-MED ONE Stop: 02/16/18 07:10 Propofol (Diprivan 20 Ml) Confirm Administered Dose 200 mg .ROUTE .STK-MED ONE Stop: 02/22/18 04:44 Propofol (Diprivan 20 Ml) Confirm Administered Dose 200 mg .ROUTE .STK-MED ONE Stop: 02/23/18 06:59 Rocuronium Welcome (Zemuron) Confirm Administered Dose 50 mg .ROUTE .STK-MED ONE Stop: 02/14/18 09:36 Rocuronium Welcome (Zemuron) Confirm Administered Dose 50 mg .ROUTE .STK-MED ONE Stop: 02/22/18 04:44 Rocuronium Welcome (Zemuron) Confirm Administered Dose 50 mg .ROUTE .STK-MED ONE Stop: 02/23/18 06:59 Rocuronium Welcome (Zemuron) Confirm Administered Dose 50 mg .ROUTE .STK-MED ONE Stop: 02/25/18 09:02 Scopolamine (Transderm-Scop) 1.5 mg TOP ONETIME ONE Stop: 02/14/18 08:16 Last Admin: 02/14/18 08:32 Dose: 1.5 mg Senna (Senna) 8.6 mg PO BEDTIME [facility] Last Admin: 02/15/18 21:24 Dose: 8.6 mg Senna (Senna) 17.2 mg PO BEDTIME [facility] Last Admin: 02/21/18 20:54 Dose: 17.2 mg Succinylcholine Chloride (Quelicin) Confirm Administered Dose 200 mg .ROUTE .STK -MED ONE Stop: 02/14/18 09:36 Succinylcholine Chloride (Quelicin) Confirm Administered Dose 200 mg .ROUTE .STK -MED ONE Stop: 02/22/18 04:44 Theophylline (Pablito-24) 400 mg PO DAILY [facility] Last Admin: 02/19/18 09:31 Dose: 400 mg Tramadol HCl (Ultram) 50 mg PO Q6H PRN PRN Reason: PAIN Last Admin: 02/17/18 04:00 Dose: 50 mg Vancomycin HCl (Vancomycin) 1 gm IV .PHARMACY TO DOSE ANGELA Stop: 02/24/18 12:00 - Exam Quality Assessment: Supplemental Oxygen, Central Line/PICC, Urine Catheter General: No Acute Distress. No: Alert HEENT: Other (Tongue swollen). No: Pupils Equal (left pupil slightly larger) Neck: Supple Lungs: Normal Respiratory Effort, Decreased Breath Sounds (both bases) Cardiovascular: Regular Rhythm, Tachycardia Extremities: Pedal Edema (mild), Other (pitting edema both arms) Peripheral Pulses: 1+: Dorsalis Pedis (L), Dorsalis Pedis (R) Skin: Warm, Dry Psy/Mental Status: No: Alert, Anxious Consult PN Assessment/Plan Procedures: Procedures AGENT NOS ASSAY W/OPTIC (01/19/18) AIRWAY INHALATION TREATMENT (01/19/18) ASSAY OF AMYLASE (01/02/18) ASSAY OF LIPASE (01/19/18) ASSAY OF MAGNESIUM (01/19/18) ASSAY OF PHOSPHORUS (01/19/18) ASSAY OF SERUM POTASSIUM (01/19/18) ASSAY THYROID STIM HORMONE (01/19/18) C DIFF AMPLIFIED PROBE (01/19/18) C-REACTIVE PROTEIN (01/19/18) CARDIOVASCULAR STRESS TEST (04/12/16) CHEST WALL MANIPULATION (12/19/17) CHEST WALL MANIPULATION (12/19/17) COMP SCREEN MAMMOGRAM ADD-ON (04/05/15) COMPLETE CBC AUTOMATED (01/19/18) COMPLETE CBC W/AUTO DIFF WBC (01/19/18) COMPREHEN METABOLIC PANEL (01/19/18) CT ABD & PELV W/CONTRAST (01/19/18) CT ABD & PELVIS W/O CONTRAST (01/02/18) CULTURE AEROBIC IDENTIFY (12/19/17) CULTURE OTHR SPECIMN AEROBIC (12/19/17) CULTURE SCREEN ONLY (10/09/17) EGD BIOPSY SINGLE/MULTIPLE (10/09/17) EMERGENCY DEPT VISIT (01/19/18) EMERGENCY DEPT VISIT (01/19/18) HT MUSCLE IMAGE SPECT MULT (04/12/16) HYDRATE IV INFUSION ADD-ON (01/19/18) LEUKOCYTE ASSESSMENT FECAL (01/02/18) MANUAL THERAPY 1/> REGIONS (02/12/18) METABOLIC PANEL TOTAL CA (01/19/18) NEUROMUSCULAR REEDUCATION (12/17/17) OVA AND PARASITES SMEARS (01/19/18) PROTHROMBIN TIME (01/19/18) PT EVAL MOD COMPLEX 30 MIN (08/13/17) ROUTINE VENIPUNCTURE (01/19/18) SMEAR COMPLEX STAIN (01/19/18) SMEAR GRAM STAIN (12/19/17) STOOL CULTR AEROBIC BACT EA (01/19/18) THER/PROPH/DIAG INJ IV PUSH (01/19/18) THERAPEUTIC EXERCISES (12/17/17) TISSUE EXAM BY PATHOLOGIST (10/09/17) TX/PRO/DX INJ SAME DRUG BAKER HELPER (01/02/18) ULTRASOUND THERAPY (02/12/18) X-RAY EXAM ABDOMEN 2 VIEWS (01/02/18) X-RAY EXAM OF SHOULDER (07/26/17) Problem List Initiated/Reviewed/Updated: Yes My Orders Last 24 Hours: My Active Orders 02/28/18 10:13 Resuscitation Status Routine 03/01/18 08:59 Head wo Cont [CT] Routine 03/02/18 05:00 BASIC METABOLIC PANEL,BMP [CHEM] Timed BLOOD GAS ARTERIAL [BG] Timed CBC W/O DIFF,HEMOGRAM [HEME] Timed (1) Plan: ASSESSMENT AND RECOMMENDATIONS INTRA-ABDOMINAL INFECTION WITH SEPSIS - Intra-abdominal cultures growing enterococcus and yeast. Sepsis has resolved at this point. She does continue to have some nocturnal temperature elevations but repeat cultures have been negative. 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 -Continue current antibiotic therapy with meropenem, vancomycin and fluconazole (plan for 8 days of therapy) -Follow-up cultures -Judicious IV fluid use HYPOXIC RESPIRATORY FAILURE - likely secondary to COPD with contribution from volume overload. On minimal ventilator support at this time. Rapid shallow breathing index is borderline at 100. I think with her tongue swelling, low tidal volumes and tachypnea that extubation would have a low likelihood of success at this point. Hopefully with some additional diuresis we will be able to extubate her in the next day or so. -40 mg of furosemide 1 today and reassess -Continue volume control CPAP via ventilator -Spontaneous breathing trials daily -Continue nebulizer therapy Anemia due to acute illness and blood loss - hemoglobin stable with no evidence for bleeding. -I would recommend avoiding transfusion unless hemoglobin is less than 8 or there is active bleeding or hemodynamic instability Severe thrombocytopenia - Suspect combination of sepsis and possible disseminated intravascular coagulation. HIT workup was negative. Platelet level improved from yesterday. -Transfuse if less than 10,000 or bleeding -Daily laboratory studies TYPE 2 DIABETES MELLITUS - sugars have stabilized and have been normal for several days. -Discontinue Accu-Cheks ACUTE KIDNEY INJURY - renal function has been stable after volume status was optimized. -Continue closely monitor urine output and renal function Holger Zambrnao M.D.
--- NOTE | 2018-03-01 09:58 | CT ---
Head wo Cont INDICATION: obtundation TECHNIQUE: CT images of the head obtained without IV contrast. Dosage reduction and iterative reconstruction techniques employed. COMPARISON: None FINDINGS: No acute intracranial abnormality. No hemorrhage, edema or mass effect. 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 Atrophy and chronic small vessel ischemic dise ase. The ventricles are normal size. Skull intact. IMPRESSION: Nothing acute. Chronic changes, as above.
--- NOTE | 2018-03-01 13:21 | PN ---
DATE OF SERVICE: 02/28/2018 The patient is running temperatures in the 100.3 to 100.7 range. Vital signs have otherwise been stable with some degree of tachycardia of around 110 to 115, the blood pressure is 129/84, the respiratory status appeared to be fairly stable, and she tolerated the CPAP throughout the night, with satisfactory blood gases. No much is noted in the way of secretions. The ESME drainage is all becoming fairly clear, and urine output has been satisfactory. The central line was changed today empirically, as well as the bladder catheter, to rule out these being sources of underlying fever. Otherwise, several blood cultures over the last 3 days have been all negative thus far, both through the lines, as well as peripherally. Labs showed hemoglobin up to 12, white count 4.5, and platelet count remains quite low at 28,000. Liver function tests show a gradual creep up of the bilirubin to 2.3. Otherwise, no major problems are noted on the electrolytes, and the creatinine is stable at 0.8. Present antibiotics include Diflucan, meropenem, and vancomycin. At this point, hopefully changing the line will result in improvement of the fever situation. Otherwise, we may need to think in terms of CTing the abdomen and chest tomorrow, to make sure there is not some drainable fluid or other problems that there almost surely would be some fluid accumulation within the abdomen, which would be hard to tell if they are infected or not. An empiric exploration at this point would be quite stressful. We will continue management with Dr. Zambrano over the next 2 to 3 days. Robert Pate MD /[id number]
[2018-03-01] MEDS ORDERED: Furosemide 40 MG/4 ML VIAL IVPUSH ONE (13:30)
[2018-03-01] MEDS: Pantoprazole 40 MG Vial IV SCH (14:14)
[2018-03-01] MEDS: HYDROmorphone/Normal Saline 15 MG/30 ML PCA IV SCH (20:48)
[2018-03-02] MEDS: Dextrose 5%-Lactated Ringers 1,000 ML IV SCH (04:11)
[2018-03-02] MEDS: Albuterol/Ipratropium 3.0-0.5 MG/3 ML Neb Soln INH SCH ×3 (07:34→15:01)
[2018-03-02] MEDS: Budesonide 0.5 MG/2 ML Neb Susp INH SCH (07:34)
[2018-03-02] MEDS: Fluconazole/Normal Saline 200 MG in Premix Bag 1 BAG IV SCH (09:03)
--- NOTE | 2018-03-02 09:04 | PCM.CONSN ---
- General Info Date of Service: 03/02/18 - Review of Systems General: Reports: Fever Systems Review Comment:: No acute events overnight. Patient did have low-grade fevers overnight. Still minimally responsive and if she is interactive it's for only short periods of time. Requiring minimal ventilator support. Still has tongue swelling. Still has rapid and shallow breathing with the volume control cpap. Her daughter Richelle is here and we have discussed the situation. Richelle believes that [facility] would not be happy with the current situation, severity of illness and poor prognosis and that care should be withdrawn. She is discussing this with family members. Dr. Pate has been informed of the discussion. - Patient Data Vitals - Most Recent: Last Vital Signs Temp 38.2 C H 03/02/18 08:00 Pulse 106 H 03/02/18 08:00 Resp 28 H 03/02/18 08:00 BP 129/44 L 03/02/18 08:00 Pulse Ox 96 03/02/18 08:00 Weight - Most Recent: 38.419 kg I&O - Last 24 Hours: Intake & Output 03/01/18 03/02/18 03/02/18 22:59 06:59 14:59 Intake Total 1093 881 Output Total 2975 1009 75 Balance -1882 -128 -75 Lab Results Last 24 Hours: Laboratory Results - last 24 hr 03/02/18 03/02/18 03/02/18 Range/Units 05:00 05:33 05:33 WBC 3.4 L (4.5-11.0) K/uL RBC 3.77 (3.30-5.50) M/uL Hgb 10.5 L (12.0-15.0) g/dL Hct 33.4 L (36.0-48.0) % MCV 89 (80-98) fL MCH 28 (27-31) pg MCHC 31 L (32-36) % Plt Count 39 L (150-400) K/uL Puncture Site Rt brachial ABG pH 7.491 H (7.350-7.450) ABG pCO2 38.5 (35.0-42.0) mmHg ABG pO2 125.0 H (75.0-100.0) mmHg ABG HCO3 29.1 H (22.0-26.0) mmol/L ABG Total CO2 26.4 H (21.0-25.0) mmol/L ABG O2 Saturation 98.9 H (95.0-98.0) % ABG O2 Content 14.5 L (15.0-23.0) %vol ABG Base Excess 5.8 mm/L ABG Hemoglobin 10.6 L (12.0-16.0) g/dL ABG Oxyhemoglobin 95.7 % ABG Carboxyhemoglobin 2.5 H (0.0-1.6) % ABG Methemoglobin 0.7 % Jose Manuel Test Not performed O2 Delivery Device Ventilator Oxygen Flow Rate L Sodium 146 (140-148) mmol/L Potassium 3.1 L (3.6-5.2) mmol/L Chloride 110 H (100-108) mmol/L Carbon Dioxide 29 (21-32) mmol/L Anion Gap 10.1 (5.0-14.0) mmol/L BUN 15 (7-18) mg/dL Creatinine 0.9 (0.6-1.0) mg/dL Est Cr Clr Drug Dosing 29.23 mL/min Estimated GFR (MDRD) 60 (>60) Glucose 102 (74-106) mg/dL Calcium 7.8 L (8.5-10.1) mg/dL Kash Results Last 24 Hours: Microbiology 02/26/18 07:09 Aerobic Blood Culture - Preliminary Blood - Arm, Right NO GROWTH AFTER 4 DAYS Anaerobic Blood Culture - Preliminary NO GROWTH AFTER 4 DAYS 02/26/18 06:40 Aerobic Blood Culture - Preliminary Blood - Central Line NO GROWTH AFTER 4 DAYS Anaerobic Blood Culture - Preliminary NO GROWTH AFTER 4 DAYS 02/28/18 05:15 Aerobic Blood Culture - Preliminary Blood - A-Line Anaerobic Blood Culture - Preliminary 02/28/18 08:15 Catheter Tip Culture - Preliminary Catheter Tip Other - Vega Catheter Yeast Isolated 02/28/18 05:20 Aerobic Blood Culture - Preliminary Blood - Arm, Left NO GROWTH AFTER 2 DAYS Anaerobic Blood Culture - Preliminary NO GROWTH AFTER 2 DAYS 02/26/18 22:35 Aerobic Blood Culture - Preliminary Blood - Central Line NO GROWTH AFTER 3 DAYS Anaerobic Blood Culture - Preliminary NO GROWTH AFTER 3 DAYS 02/27/18 10:35 Aerobic Blood Culture - Preliminary Blood - Arm, Left NO GROWTH AFTER 2 DAYS Anaerobic Blood Culture - Preliminary NO GROWTH AFTER 2 DAYS 02/27/18 10:07 Aerobic Blood Culture - Preliminary Blood - Central Line NO GROWTH AFTER 2 DAYS Anaerobic Blood Culture - Preliminary NO GROWTH AFTER 2 DAYS 02/25/18 12:30 Gram Stain - Final Abdominal Fluid - Drainage Wound Culture - Final Enterococcus Faecium YEAST Anaerobic Culture - Final NO GROWTH AFTER 3 DAYS Med Orders - Current: Current Medications Albuterol/Ipratropium (Duoneb 3.0-0.5 Mg/3 Ml) 3 ml INH ASDIRECTED PRN PRN Reason: RESP Last Admin: 02/17/18 18:57 Dose: 3 ml Albuterol/Ipratropium (Duoneb 3.0-0.5 Mg/3 Ml) 3 ml INH QIDRT [facility] Last Admin: 03/02/18 07:34 Dose: 3 ml Budesonide (Pulmicort) 0.5 mg INH BIDRT [facility] Last Admin: 03/02/18 07:34 Dose: 0.5 mg Dextrose (Glutose 15) 15 gm PO ASDIRECTED PRN PRN Reason: HYPOGLYCEMIA Dextrose/Water (Dextrose 50% In Water) 50 ml IVPUSH ASDIRECTED PRN PRN Reason: HYPOGLYCEMIA Glucagon (Glucagen) 1 mg IM ASDIRECTED PRN PRN Reason: HYPOGLYCEMIA Hydromorphone HCl (Dilaudid Android Software Engineer 15 Mg In Ns 30 Ml) 15 mg IV ASDIRECTED [facility]; Protocol Last Admin: 03/01/18 20:48 Dose: 15 mg Meropenem 1 gm/ Sodium (Chloride) 50 mls @ 100 mls/hr IV Q12H [facility] Last Admin: 03/02/18 04:41 Dose: 100 mls/hr Fluconazole/Sodium Chloride (200 mg/ Premix) 100 mls @ 100 mls/hr IV Q24H [facility] Last Admin: 03/01/18 09:00 Dose: 100 mls/hr Dextrose/Lactated Ringer's (Dextrose 5%-Lactated Ringers) 1,000 mls @ 50 mls/ hr IV ASDIRECTED [facility] Last Admin: 03/02/18 04:11 Dose: 50 mls/hr Vancomycin HCl 1.25 gm/ Sodium (Chloride) 250 mls @ 167 mls/hr IV Q24H [facility] Last Admin: 03/01/18 11:25 Dose: 167 mls/hr Potassium Chloride 40 meq/ (Premix) 100 mls @ 25 mls/hr IV ONETIME ONE Stop: 03/02/18 13:29 Naloxone HCl (Narcan) 0.1 mg IV ASDIRECTED PRN PRN Reason: decreased respiratory rate Discontinued Medications Acetaminophen (Tylenol Extra Strength) 1,000 mg PO ONETIME ONE Stop: 02/14/18 08:16 Last Admin: 02/14/18 08:31 Dose: 1,000 mg Acetaminophen (Tylenol) 650 mg PO Q6H [facility] Last Admin: 02/22/18 08:00 Dose: Not Given Albuterol/Ipratropium (Duoneb 3.0-0.5 Mg/3 Ml) 3 ml NEB ONETIME ONE Stop: 02/14/18 09:46 Last Admin: 02/14/18 12:32 Dose: 3 ml Allopurinol (Zyloprim) 150 mg PO DAILY [facility] Last Admin: 02/21/18 08:06 Dose: 150 mg Alvimopan (Entereg) 12 mg PO ONETIME ONE Stop: 02/14/18 08:16 Last Admin: 02/14/18 08:31 Dose: 12 mg Alvimopan (Entereg) 12 mg PO BID [facility] Stop: 02/21/18 09:01 Last Admin: 02/21/18 08:05 Dose: 12 mg Aspirin (Halfprin) 81 mg PO DAILY [facility] Last Admin: 02/22/18 09:00 Dose: Not Given Aztreonam (Azactam) Confirm Administered Dose 1 gm .ROUTE .STK-MED ONE Stop: 02/22/18 06:21 Last Admin: 02/22/18 06:20 Dose: 2 gm Aztreonam (Azactam) Confirm Administered Dose 1 gm .ROUTE .STK-MED ONE Stop: 02/22/18 06:21 Bisacodyl (Dulcolax) 10 mg PO BID [facility] Last Admin: 02/22/18 09:00 Dose: Not Given Bisacodyl (Dulcolax) 10 mg RECTAL TID [facility] Last Admin: 02/21/18 21:01 Dose: 10 mg Bisacodyl (Dulcolax) 10 mg RECTAL ONETIME ONE Stop: 02/21/18 10:01 Last Admin: 02/21/18 09:37 Dose: Not Given Bupivacaine HCl (Marcaine 0.5%) Confirm Administered Dose 50 ml .ROUTE .STK-MED ONE Stop: 02/16/18 06:45 Last Admin: 02/16/18 07:44 Dose: 10 ml Bupivacaine HCl (Marcaine 0.5%) Confirm Administered Dose 50 ml .ROUTE .STK-MED ONE Stop: 02/27/18 07:44 Last Admin: 02/27/18 11:08 Dose: 16.5 ml Carvedilol (Coreg) 3.125 mg PO BIDMEALS [facility] Last Admin: 02/21/18 17:39 Dose: 3.125 mg Cefoxitin Sodium (Mefoxin) Confirm Administered Dose 2 gm .ROUTE .STK-MED ONE Stop: 02/14/18 08:44 Ropivacaine 25 ml/Dexamethasone 8 mg/Epinephrine HCl 0.4 mg/ Sodium Chloride 52.6 ml 0 ml NERVRT ASDIRECTED [facility] Neomycin/Polymyxin 1 ml/ (Sodium Chloride 500 ml) 0 ml IRR ONETIME ONE Stop: 02/14/18 08:16 Last Admin: 02/14/18 08:35 Dose: 750 irr Ropivacaine 25 ml/Dexamethasone 8 mg/Epinephrine HCl 0.4 mg/ Sodium Chloride 52.6 ml 0 ml NERVRT ASDIRECTED [facility] Last Admin: 02/16/18 07:59 Dose: 80 syringe Dexamethasone (Dexamethasone) Confirm Administered Dose 4 mg .ROUTE .STK-MED ONE Stop: 02/14/18 09:36 Dexamethasone (Dexamethasone) Confirm Administered Dose 4 mg .ROUTE .STK-MED ONE Stop: 02/22/18 04:44 Dextrose/Water (Dextrose 50% In Water) 25 ml IVPUSH ONETIME ONE Stop: 02/25/18 02:21 Last Admin: 02/25/18 02:28 Dose: 25 ml Diphenhydramine HCl (Benadryl) 25 mg IVPUSH Q6H PRN PRN Reason: Itching Last Admin: 02/14/18 15:58 Dose: 25 mg Ephedrine Sulfate (Ephedrine Sulfate) Confirm Administered Dose 50 mg .ROUTE .STK-MED ONE Stop: 02/14/18 13:50 Ephedrine Sulfate (Ephedrine Sulfate) Confirm Administered Dose 50 mg .ROUTE .STK-MED ONE Stop: 02/22/18 05:33 Erythromycin Ethylsuccinate (Eryped 400) 250 mg NGTUBE Q6H [facility] Last Admin: 02/22/18 04:26 Dose: Not Given Fentanyl (Sublimaze) Confirm Administered Dose 250 mcg .ROUTE .STK-MED ONE Stop: 02/14/18 09:36 Fentanyl (Sublimaze) Confirm Administered Dose 100 mcg .ROUTE .STK-MED ONE Stop: 02/16/18 07:10 Fentanyl (Sublimaze) Confirm Administered Dose 250 mcg .ROUTE .STK-MED ONE Stop: 02/22/18 04:44 Fentanyl (Duragesic) Confirm Administered Dose 12 mcg .ROUTE .STK-MED ONE Stop: 02/22/18 05:42 Last Admin: 02/22/18 05:51 Dose: 12 mcg Fentanyl (Duragesic) 12 mcg TRDERM Q72H [facility] Last Admin: 02/25/18 06:37 Dose: 12 mcg Fentanyl (Sublimaze) Confirm Administered Dose 100 mcg .ROUTE .STK-MED ONE Stop: 02/23/18 07:51 Fentanyl (Sublimaze) Confirm Administered Dose 250 mcg .ROUTE .STK-MED ONE Stop: 02/25/18 09:02 Furosemide (Lasix) 40 mg PO DAILY [facility] Last Admin: 02/18/18 09:45 Dose: 40 mg Furosemide (Lasix) 20 mg IVPUSH ONETIME STA Stop: 02/17/18 20:03 Last Admin: 02/17/18 20:30 Dose: 20 mg Furosemide (Lasix) 40 mg IVPUSH NOW ONE Stop: 02/17/18 21:33 Last Admin: 02/17/18 21:53 Dose: 40 mg Furosemide (Lasix) 20 mg IVPUSH NOW ONE Stop: 02/21/18 10:01 Last Admin: 02/21/18 09:50 Dose: 20 mg Furosemide (Lasix) 20 mg IV ASDIRECTED [facility] Stop: 02/26/18 23:00 Last Admin: 02/26/18 11:21 Dose: 20 mg Furosemide (Lasix) 10 mg IV ASDIRECTED [facility] Stop: 02/27/18 16:00 Furosemide (Lasix) 20 mg IV ONETIME ONE Stop: 02/27/18 12:01 Last Admin: 02/27/18 21:23 Dose: 20 mg Furosemide (Lasix) Confirm Administered Dose 20 mg .ROUTE .STK-MED ONE Stop: 02/27/18 21:22 Last Admin: 02/27/18 21:30 Dose: Not Given Furosemide (Lasix) 40 mg IVPUSH ONETIME ONE Stop: 03/01/18 13:31 Last Admin: 03/01/18 13:38 Dose: 40 mg Glucagon (Glucagen) Confirm Administered Dose 1 mg .ROUTE .STK-MED ONE Stop: 02/14/18 14:26 Glycopyrrolate (Robinul) Confirm Administered Dose 1 mg .ROUTE .STK-MED ONE Stop: 02/14/18 09:36 Glycopyrrolate (Robinul) Confirm Administered Dose 1 mg .ROUTE .STK-MED ONE Stop: 02/22/18 04:44 Heparin Sodium (Porcine) (Heparin Lock Flush 100 Units/Ml) Confirm Administered Dose 500 units .ROUTE .STK-MED ONE Stop: 02/22/18 06:05 Last Admin: 02/22/18 08:30 Dose: 500 units Heparin Sodium (Porcine) (Heparin Sodium) Confirm Administered Dose 5,000 units .ROUTE .STK-MED ONE Stop: 02/22/18 07:34 Heparin Sodium (Porcine) (Heparin Sodium) Confirm Administered Dose 5,000 units .ROUTE .STK-MED ONE Stop: 02/22/18 09:11 Last Admin: 02/22/18 10:43 Dose: Not Given Hydromorphone HCl (Dilaudid Android Software Engineer 15 Mg In Ns 30 Ml) 0 mg IV ASDIRECTED PRN; Protocol PRN Reason: TRANSPORTATION AIDE PAIN CONTROL Last Admin: 02/19/18 06:32 Dose: 15 mg Hydromorphone HCl (Dilaudid Android Software Engineer 15 Mg In Ns 30 Ml) Confirm Administered Dose 15 mg IV .STK-MED ONE Stop: 02/17/18 10:18 Last Admin: 02/17/18 10:31 Dose: Not Given Hydroxyzine HCl (Vistaril) 0 mg IM Q4H PRN PRN Reason: PAIN Last Admin: 02/22/18 01:27 Dose: 75 mg Hydroxyzine HCl (Vistaril) 75 mg IM ONETIME ONE Stop: 02/17/18 11:01 Last Admin: 02/17/18 11:00 Dose: 75 mg Dextrose/Lactated Ringer's (Dextrose 5%-Lactated Ringers) 1,000 mls @ 100 mls/ hr IV ASDIRECTED [facility] Last Admin: 02/14/18 12:44 Dose: 100 mls/hr Meropenem 500 mg/ Sodium (Chloride) 50 mls @ 100 mls/hr IV ONETIME ONE Stop: 02/14/18 10:14 Last Admin: 02/14/18 12:59 Dose: 100 mls/hr Fentanyl 2,500 mcg/ Sodium (Chloride) 250 mls @ 0 mls/hr EPIDUR TITRATE [facility]; Protocol Fentanyl Citrate 2,500 mcg/ (Sodium Chloride) 250 mls @ 0 mls/hr EPIDUR TITRATE [facility]; Protocol Last Admin: 02/15/18 15:05 Dose: 8 mls/hr, 8 mls/hr Lactated Ringer's (Ringers, Lactated) Confirm Administered Dose 1,000 mls @ as directed .ROUTE .[facility]-MED ONE Stop: 02/14/18 14:38 Dextrose/Lactated Ringer's (Dextrose 5%-Lactated Ringers) 1,000 mls @ 100 mls/ hr IV ASDIRECTED [facility] Dextrose/Lactated Ringer's (Dextrose 5%-Lactated Ringers) 1,000 mls @ 150 mls/ hr IV ASDIRECTED [facility] Last Admin: 02/15/18 02:48 Dose: 150 mls/hr Cefoxitin Sodium 2 gm/ Sodium (Chloride) 50 mls @ 100 mls/hr IV Q6H [facility] Last Admin: 02/17/18 08:48 Dose: 100 mls/hr Potassium Chloride/Dextrose/Sod Cl (D5 1/2 Ns W/ 20 Meq/L Kcl) 1,000 mls @ 80 mls/hr IV ASDIRECTED [facility] Last Admin: 02/15/18 09:37 Dose: 80 mls/hr Naloxone HCl 0.4 mg/ Potassium (Chloride/Dextrose/Sod Cl) 1,001 mls @ 80.08 mls /hr IV ASDIRECTED [facility] Last Admin: 02/16/18 04:38 Dose: 80.08 mls/hr Fentanyl Citrate 2,500 mcg/ (Sodium Chloride) 250 mls @ 4 mls/hr EPIDUR TITRATE [facility]; Protocol Last Admin: 02/15/18 22:56 Dose: 4 ml/hr, 4 mls/hr Potassium Chloride/Dextrose/Sod Cl (D5 1/2 Ns W/ 20 Meq/L Kcl) 1,000 mls @ 40 mls/hr IV ASDIRECTED [facility] Last Admin: 02/17/18 10:12 Dose: 100 mls/hr Potassium Phosphate 30 mmole/ (Sodium Chloride) 160 mls @ 54 mls/hr IV Q3H [facility] Stop: 02/17/18 16:58 Last Admin: 02/17/18 16:49 Dose: 54 mls/hr Dextrose/Lactated Ringer's (Dextrose 5%-Lactated Ringers) 1,000 mls @ 100 mls/ hr IV ASDIRECTED [facility] Last Admin: 02/19/18 08:52 Dose: 100 mls/hr Lactated Ringer's (Ringers, Lactated) 1,000 mls @ 250 mls/hr IV ASDIRECTED [facility] Stop: 02/18/18 14:31 Last Admin: 02/18/18 11:28 Dose: 250 mls/hr Acetaminophen 1,000 mg/ Premix 100 mls @ 400 mls/hr IV NOW ONE Stop: 02/18/18 11:16 Last Admin: 02/18/18 11:33 Dose: Not Given Dextrose/Lactated Ringer's (Dextrose 5%-Lactated Ringers) 1,000 mls @ 75 mls/ hr IV ASDIRECTED [facility] Last Admin: 02/20/18 23:39 Dose: 75 mls/hr Potassium Phosphate 22.5 mmole (/ Sodium Chloride) 257.5 mls @ 86 mls/hr IV Q3H [facility] Stop: 02/21/18 15:59 Last Admin: 02/21/18 12:55 Dose: 86 mls/hr Dextrose/Lactated Ringer's (Dextrose 5%-Lactated Ringers) 1,000 mls @ 50 mls/ hr IV ASDIRECTED [facility] Last Admin: 02/21/18 16:35 Dose: 50 mls/hr Meropenem 500 mg/ Sodium (Chloride) 50 mls @ 100 mls/hr IV ONETIME ONE Stop: 02/22/18 04:48 Last Admin: 02/22/18 05:30 Dose: 100 mls/hr Lactated Ringer's (Ringers, Lactated) Confirm Administered Dose 1,000 mls @ as directed .ROUTE .STK-MED ONE Stop: 02/22/18 05:19 Sodium Chloride (Normal Saline) Confirm Administered Dose 250 mls @ as directed .ROUTE .STK-MED ONE Stop: 02/22/18 06:14 Norepinephrine Bitartrate 4 mg (/ Dextrose/Water) 250 mls @ 7.5 mls/hr IV TITRATE [facility]; Protocol Last Titration: 02/22/18 10:29 Dose: 11 mcg/min, 41.25 mls/hr Lactated Ringer's (Ringers, Lactated) Confirm Administered Dose 1,000 mls @ as directed .ROUTE .STK-MED ONE Stop: 02/22/18 07:12 Dextrose/Lactated Ringer's (Dextrose 5%-Lactated Ringers) 1,000 mls @ 100 mls/ hr IV ASDIRECTED [facility] Last Admin: 02/24/18 10:13 Dose: 100 mls/hr Propofol (Diprivan 100 Ml) 100 mls @ 1.46 mls/hr IV TITRATE [facility]; Protocol Last Admin: 02/24/18 01:41 Dose: 5 mcg/kg/min, 1.46 mls/hr Lactated Ringer's (Ringers, Lactated) 1,000 mls @ 125 mls/hr IV ASDIRECTED [facility] Last Admin: 02/24/18 10:15 Dose: 125 mls/hr Meropenem 500 mg/ Sodium (Chloride) 50 mls @ 100 mls/hr IV Q6H [facility] Last Admin: 02/22/18 10:31 Dose: 100 mls/hr Aztreonam/Dextrose 1 gm/ (Premix) 50 mls @ 100 mls/hr IV Q8H [facility] Last Admin: 02/24/18 01:31 Dose: 100 mls/hr Lactated Ringer's (Ringers, Lactated) 1,000 mls @ 999 mls/hr IV .BOLUS ONE Stop: 02/22/18 11:00 Last Admin: 02/22/18 10:00 Dose: 999 mls/hr Lactated Ringer's (Ringers, Lactated) 750 mls @ 999 mls/hr IV ONETIME ONE Stop: 02/22/18 12:00 Last Admin: 02/22/18 11:15 Dose: 999 mls/hr Norepinephrine Bitartrate 4 mg (/ Dextrose/Water) 250 mls @ 7.5 mls/hr IV TITRATE [facility]; Protocol Stop: 02/22/18 17:30 Last Titration: 02/22/18 17:02 Dose: 12 mcg/min, 45 mls/hr Lactated Ringer's (Ringers, Lactated) 1,000 mls @ 999 mls/hr IV ASDIRECTED ONE Stop: 02/22/18 14:30 Last Admin: 02/22/18 13:30 Dose: 999 mls/hr Lactated Ringer's (Ringers, Lactated) 1,000 mls @ 500 mls/hr IV ONETIME ONE Stop: 02/22/18 16:29 Last Admin: 02/22/18 14:19 Dose: 500 mls/hr Vasopressin 100 units/ (Dextrose/Water) 255 mls @ 1.53 mls/hr IV TITRATE [facility]; Protocol Vasopressin 100 units/ (Dextrose/Water) 255 mls @ 1.53 mls/hr IV TITRATE [facility]; Protocol Last Titration: 02/22/18 15:57 Dose: 0.02 units/min, 3.06 mls/hr Norepinephrine Bitartrate 8 mg (/ Dextrose/Water) 500 mls @ 7.5 mls/hr IV TITRATE [facility]; Protocol Last Titration: 02/24/18 08:50 Dose: 0 mcg/min, 0 mls/hr Lactated Ringer's (Ringers, Lactated) 1,000 mls @ 250 mls/hr IV ONETIME ONE Stop: 02/22/18 20:29 Last Infusion: 02/22/18 20:04 Dose: 125 mls/hr Magnesium Sulfate 2 gm/ Premix 50 mls @ 25 mls/hr IV Q6H [facility] Stop: 02/23/18 17:29 Last Admin: 02/23/18 14:31 Dose: 25 mls/hr Vasopressin 40 units/ Dextrose (/Water) 100 mls @ 1.5 mls/hr IV TITRATE [facility]; Protocol Last Titration: 02/23/18 17:02 Dose: 0 units/min, 0 mls/hr Insulin Human Regular 100 unit (/ Sodium Chloride) 101 mls @ 0.5 mls/hr IV TITRATE [facility]; Protocol Last Titration: 02/24/18 07:49 Dose: 0 units/hr, 0 mls/hr Albumin Human (Albumin 25%) 25 gm in 100 mls @ 25 mls/hr IV DAILY [facility] Stop: 02/27/18 12:59 Last Admin: 02/27/18 08:58 Dose: 25 mls/hr Albumin Human (Albumin 25%) 25 gm in 100 mls @ 25 mls/hr IV Q24H [facility] Stop: 02/27/18 16:59 Last Admin: 02/27/18 14:04 Dose: 25 mls/hr Potassium Phosphate 22.5 mmole (/ Sodium Chloride) 107.5 mls @ 35 mls/hr IV Q3H [facility] Stop: 02/24/18 15:59 Last Admin: 02/24/18 13:01 Dose: 35 mls/hr Vancomycin HCl 1 gm/ Sodium (Chloride) 250 mls @ 167 mls/hr IV Q24H [facility] Last Admin: 02/26/18 11:05 Dose: 167 mls/hr Linezolid (Zyvox) Confirm Administered Dose 300 mls @ as directed .ROUTE .STK- MED ONE Stop: 02/25/18 11:02 Magnesium Sulfate 2 gm/ Premix 50 mls @ 25 mls/hr IV Q6H [facility] Stop: 02/26/18 04:59 Last Admin: 02/26/18 03:00 Dose: 25 mls/hr Potassium Phosphate 22.5 mmole (/ Sodium Chloride) 107.5 mls @ 35 mls/hr IV Q3H [facility] Stop: 02/26/18 15:29 Last Admin: 02/26/18 13:23 Dose: 35 mls/hr Acetaminophen 1,000 mg/ Premix 100 mls @ 400 mls/hr IV NOW ONE Stop: 02/26/18 22:40 Last Admin: 02/26/18 22:43 Dose: 400 mls/hr Potassium Phosphate 22.5 mmole (/ Sodium Chloride) 107.5 mls @ 35 mls/hr IV Q3H [facility] Stop: 02/27/18 15:29 Last Admin: 02/27/18 14:21 Dose: 35 mls/hr Ibuprofen (Motrin) 400 mg PO Q6H [facility] Last Admin: 02/17/18 08:22 Dose: 400 mg Insulin Aspart (Novolog) Confirm Administered Dose 300 unit .ROUTE .STK-MED ONE Stop: 02/23/18 06:25 Last Admin: 02/23/18 06:43 Dose: 10 units Insulin Aspart (Novolog) 0 unit SUBCUT Q6H PRN; Protocol PRN Reason: MEDIUM CORRECTIONAL DOSE Last Admin: 02/23/18 12:17 Dose: 12 units Insulin Detemir (Levemir) Confirm Administered Dose 300 unit .ROUTE .STK-MED ONE Stop: 02/23/18 06:09 Last Admin: 02/23/18 06:43 Dose: 10 units Insulin Detemir (Levemir) 10 unit SUBCUT Q12H [facility] Last Admin: 02/24/18 06:11 Dose: 10 units Isosorbide Mononitrate (Imdur) 30 mg PO DAILY [facility] Last Admin: 02/22/18 09:00 Dose: Not Given Ketamine HCl (Ketalar) 25 mg IV ASDIRECTED [facility] Ketorolac Tromethamine (Toradol) Confirm Administered Dose 60 mg .ROUTE .STK- MED ONE Stop: 02/25/18 09:07 Levothyroxine Sodium (Levothyroxine) 75 mcg PO ACBREAKFAST [facility] Last Admin: 02/22/18 08:31 Dose: Not Given Lidocaine HCl (Xylocaine-Mpf 1%) Confirm Administered Dose 5 ml .ROUTE .STK-MED ONE Stop: 02/14/18 12:41 Last Admin: 02/14/18 16:48 Dose: Not Given Lidocaine HCl (Xylocaine-Mpf 1%) 0.1 ml INJECT ONETIME ONE Stop: 02/14/18 12:43 Last Admin: 02/14/18 16:48 Dose: Not Given Lidocaine/Epinephrine (Xylocaine 1% With Epinephrine 1:100,000) Confirm Administered Dose 50 ml .ROUTE .STK-MED ONE Stop: 02/16/18 06:45 Last Admin: 02/16/18 07:44 Dose: 10 ml Lidocaine/Epinephrine (Xylocaine 1% With Epinephrine 1:100,000) Confirm Administered Dose 50 ml .ROUTE .STK-MED ONE Stop: 02/27/18 07:44 Last Admin: 02/27/18 11:09 Dose: 16.5 ml Linezolid (Zyvox) 600 mg IRR .STK-MED ONE Stop: 02/25/18 12:21 Last Admin: 02/25/18 12:20 Dose: 600 mg Magnesium Hydroxide (Milk Of Magnesia) 30 ml PO BID [facility] Stop: 02/16/18 21:01 Last Admin: 02/16/18 20:18 Dose: 30 ml Magnesium Hydroxide (Milk Of Magnesia) 30 ml PO ASDIRECTED PRN PRN Reason: * Melatonin (Melatonin) 9 mg PO BEDTIME PRN PRN Reason: Insomnia Last Admin: 02/22/18 00:39 Dose: 9 mg Meperidine HCl (Demerol) 75 mg IM ONETIME ONE Stop: 02/17/18 11:01 Last Admin: 02/17/18 11:00 Dose: 75 mg Meropenem (Merrem) Confirm Administered Dose 500 mg .ROUTE .STK-MED ONE Stop: 02/14/18 08:44 Last Admin: 02/14/18 14:30 Dose: 500 mg Meropenem (Merrem) Confirm Administered Dose 500 mg .ROUTE .STK-MED ONE Stop: 02/16/18 06:45 Last Admin: 02/16/18 07:49 Dose: 500 mg Meropenem (Merrem) Confirm Administered Dose 500 mg .ROUTE .STK-MED ONE Stop: 02/22/18 05:07 Meropenem (Merrem) Confirm Administered Dose 1,500 mg .ROUTE .STK-MED ONE Stop: 02/22/18 05:51 Meropenem (Merrem) Confirm Administered Dose 500 mg .ROUTE .STK-MED ONE Stop: 02/22/18 06:05 Last Admin: 02/22/18 06:00 Dose: 3,500 mg Meropenem (Merrem) Confirm Administered Dose 1,000 mg .ROUTE .STK-MED ONE Stop: 02/22/18 06:40 Meropenem (Merrem) 1,000 mg IRR ONETIME ONE Stop: 02/22/18 07:31 Last Admin: 02/22/18 07:30 Dose: 1,000 mg Meropenem (Merrem) Confirm Administered Dose 1,000 mg .ROUTE .STK-MED ONE Stop: 02/23/18 06:39 Last Admin: 02/23/18 10:18 Dose: 1,500 mg Meropenem (Merrem) Confirm Administered Dose 500 mg .ROUTE .STK-MED ONE Stop: 02/27/18 07:44 Last Admin: 02/27/18 11:09 Dose: 500 mg Methylprednisolone Sodium Succinate (Solu-Medrol) 40 mg IVPUSH Q12H [facility] Last Admin: 02/22/18 01:34 Dose: 40 mg Metoclopramide HCl (Reglan) 10 mg IVPUSH Q8H [facility] Last Admin: 02/22/18 01:34 Dose: 10 mg Midazolam HCl (Versed 1 Mg/Ml) Confirm Administered Dose 10 mg .ROUTE .STK-MED ONE Stop: 02/27/18 09:30 Last Admin: 02/27/18 12:28 Dose: Not Given Midazolam HCl (Versed 1 Mg/Ml) 6 mg IV ONETIME ONE Stop: 02/27/18 10:01 Last Admin: 02/27/18 09:30 Dose: 6 mg Naloxone HCl (Narcan) 0.1 mg IVPUSH Q5M PRN PRN Reason: RESP RATE LESS THAN 6/MINUTE Last Admin: 02/15/18 15:23 Dose: 0.1 mg Neostigmine Methylsulfate (Neostigmine) Confirm Administered Dose 5 mg .ROUTE .STK-MED ONE Stop: 02/14/18 09:36 Neostigmine Methylsulfate (Neostigmine) Confirm Administered Dose 5 mg .ROUTE .STK-MED ONE Stop: 02/22/18 04:44 Nitroglycerin (Nitrostat) 0.4 mg SL ASDIRECTED PRN PRN Reason: CHEST PAIN Fentanyl Patch Check 1 each TOP BID [facility] Last Admin: 02/27/18 09:00 Dose: Not Given Ondansetron HCl (Zofran) Confirm Administered Dose 4 mg .ROUTE .STK-MED ONE Stop: 02/14/18 09:36 Ondansetron HCl (Zofran) 4 mg IVPUSH Q4H PRN PRN Reason: NAUSEA Last Admin: 02/22/18 00:43 Dose: 4 mg Ondansetron HCl (Zofran) Confirm Administered Dose 4 mg .ROUTE .STK-MED ONE Stop: 02/22/18 04:44 Pantoprazole Sodium (Protonix Iv) 40 mg IV Q24H [facility] Last Admin: 02/16/18 17:44 Dose: 40 mg Pantoprazole Sodium (Protonix) 40 mg PO ACBREAKFAST [facility] Last Admin: 02/22/18 10:05 Dose: Not Given Pantoprazole Sodium (Protonix Iv) 40 mg IV Q24H [facility] Last Admin: 03/01/18 14:14 Dose: 40 mg Trans-Derm Scop (Patch Removal) 0 each TOP ONETIME ONE Stop: 02/16/18 14:01 Last Admin: 02/16/18 15:05 Dose: Not Given Phenylephrine HCl (Manuel-Synephrine) Confirm Administered Dose 10 mg .ROUTE .STK- MED ONE Stop: 02/22/18 05:40 Piperacillin Sod/Tazobactam Sod (Zosyn) 3.375 gm .ROUTE .STK-MED ONE Stop: 02/25/18 13:01 Prednisone (Prednisone) 2.5 mg PO DAILY [facility] Last Admin: 02/18/18 09:45 Dose: 2.5 mg Prednisone (Prednisone) 10 mg PO DAILY [facility] Last Admin: 02/18/18 11:38 Dose: 10 mg Propofol (Diprivan 20 Ml) Confirm Administered Dose 200 mg .ROUTE .STK-MED ONE Stop: 02/14/18 09:36 Propofol (Diprivan 20 Ml) Confirm Administered Dose 200 mg .ROUTE .STK-MED ONE Stop: 02/16/18 07:10 Propofol (Diprivan 20 Ml) Confirm Administered Dose 200 mg .ROUTE .STK-MED ONE Stop: 02/22/18 04:44 Propofol (Diprivan 20 Ml) Confirm Administered Dose 200 mg .ROUTE .STK-MED ONE Stop: 02/23/18 06:59 Rocuronium [place] (Zemuron) Confirm Administered Dose 50 mg .ROUTE .STK-MED ONE Stop: 02/14/18 09:36 Rocuronium [place] (Zemuron) Confirm Administered Dose 50 mg .ROUTE .STK-MED ONE Stop: 02/22/18 04:44 Rocuronium [place] (Zemuron) Confirm Administered Dose 50 mg .ROUTE .STK-MED ONE Stop: 02/23/18 06:59 Rocuronium [place] (Zemuron) Confirm Administered Dose 50 mg .ROUTE .STK-MED ONE Stop: 02/25/18 09:02 Scopolamine (Transderm-Scop) 1.5 mg TOP ONETIME ONE Stop: 02/14/18 08:16 Last Admin: 02/14/18 08:32 Dose: 1.5 mg Senna (Senna) 8.6 mg PO BEDTIME [facility] Last Admin: 02/15/18 21:24 Dose: 8.6 mg Senna (Senna) 17.2 mg PO BEDTIME [facility] Last Admin: 02/21/18 20:54 Dose: 17.2 mg Succinylcholine Chloride (Quelicin) Confirm Administered Dose 200 mg .ROUTE .STK -MED ONE Stop: 02/14/18 09:36 Succinylcholine Chloride (Quelicin) Confirm Administered Dose 200 mg .ROUTE .STK -MED ONE Stop: 02/22/18 04:44 Theophylline (Pablito-24) 400 mg PO DAILY ANGELA Last Admin: 02/19/18 09:31 Dose: 400 mg Tramadol HCl (Ultram) 50 mg PO Q6H PRN PRN Reason: PAIN Last Admin: 02/17/18 04:00 Dose: 50 mg Vancomycin HCl (Vancomycin) 1 gm IV .PHARMACY TO DOSE ANGELA Stop: 02/24/18 12:00 - Exam Quality Assessment: Supplemental Oxygen, Central Line/PICC, Urine Catheter General: Alert, Cooperative, No Acute Distress, Lethargic HEENT: Pupils Equal Neck: Supple Lungs: Normal Respiratory Effort, Decreased Breath Sounds (both bases), Crackles (rare right lung base) Cardiovascular: Regular Rate, Irregular Rhythm GI/Abdominal Exam: Soft, No Distention, Other (ostomy pink with mild greenish drainage) Extremities: Pedal Edema (mild ankle edema) Skin: Warm, Dry Psy/Mental Status: Alert, Normal Affect Consult PN Assessment/Plan Procedures: Procedures AGENT NOS ASSAY W/OPTIC (01/19/18) AIRWAY INHALATION TREATMENT (01/19/18) ASSAY OF AMYLASE (01/02/18) ASSAY OF LIPASE (01/19/18) ASSAY OF MAGNESIUM (01/19/18) ASSAY OF PHOSPHORUS (01/19/18) ASSAY OF SERUM POTASSIUM (01/19/18) ASSAY THYROID STIM HORMONE (01/19/18) C DIFF AMPLIFIED PROBE (01/19/18) C-REACTIVE PROTEIN (01/19/18) CARDIOVASCULAR STRESS TEST (04/12/16) CHEST WALL MANIPULATION (12/19/17) CHEST WALL MANIPULATION (12/19/17) COMP SCREEN MAMMOGRAM ADD-ON (04/05/15) COMPLETE CBC AUTOMATED (01/19/18) COMPLETE CBC W/AUTO DIFF WBC (01/19/18) COMPREHEN METABOLIC PANEL (01/19/18) CT ABD & PELV W/CONTRAST (01/19/18) CT ABD & PELVIS W/O CONTRAST (01/02/18) CULTURE AEROBIC IDENTIFY (12/19/17) CULTURE OTHR SPECIMN AEROBIC (12/19/17) CULTURE SCREEN ONLY (10/09/17) EGD BIOPSY SINGLE/MULTIPLE (10/09/17) EMERGENCY DEPT VISIT (01/19/18) EMERGENCY DEPT VISIT (01/19/18) HT MUSCLE IMAGE SPECT MULT (04/12/16) HYDRATE IV INFUSION ADD-ON (01/19/18) LEUKOCYTE ASSESSMENT FECAL (01/02/18) MANUAL THERAPY 1/> REGIONS (02/12/18) METABOLIC PANEL TOTAL CA (01/19/18) NEUROMUSCULAR REEDUCATION (12/17/17) OVA AND PARASITES SMEARS (01/19/18) PROTHROMBIN TIME (01/19/18) PT EVAL MOD COMPLEX 30 MIN (08/13/17) ROUTINE VENIPUNCTURE (01/19/18) SMEAR COMPLEX STAIN (01/19/18) SMEAR GRAM STAIN (12/19/17) STOOL CULTR AEROBIC BACT EA (01/19/18) THER/PROPH/DIAG INJ IV PUSH (01/19/18) THERAPEUTIC EXERCISES (12/17/17) TISSUE EXAM BY PATHOLOGIST (10/09/17) TX/PRO/DX INJ SAME DRUG [employer] OPERATOR (01/02/18) ULTRASOUND THERAPY (02/12/18) X-RAY EXAM ABDOMEN 2 VIEWS (01/02/18) X-RAY EXAM OF SHOULDER (07/26/17) Problem List Initiated/Reviewed/Updated: Yes My Orders Last 24 Hours: My Active Orders 03/02/18 09:01 methylPREDNISolone Sod Succ [Solu-MEDROL] 125 mg IVPUSH ONETIME ONE 03/02/18 09:30 Potassium Chloride [KCL 40 MEQ in Water 100 ML] 40 meq Premix Bag 1 bag IV ONETIME 03/02/18 10:00 Famotidine [Pepcid] 20 mg IVPUSH DAILY 03/03/18 05:00 CBC W/O DIFF,HEMOGRAM [HEME] Timed (1) COMPREHENSIVE METABOLIC PN,CMP [CHEM] Timed MAGNESIUM [CHEM] Timed PHOSPHORUS [CHEM] Timed Plan: ASSESSMENT AND RECOMMENDATIONS INTRA-ABDOMINAL INFECTION WITH SEPSIS - Intra-abdominal cultures growing enterococcus and yeast. Sepsis has resolved at this point. She does continue to have some nocturnal temperature elevations but repeat cultures have been negative. 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 Poor prognosis with extremely long hospitalization and extremely long recovery even if she were able to survive this event. Family is wishing to withdraw care at this time. -Planning to transition to comfort cares HYPOXIC RESPIRATORY FAILURE - likely secondary to COPD with contribution from volume overload. On minimal ventilator support at this time. Rapid shallow breathing index is still elevated with obtundation tongue swelling limiting ability to extubate. -Planning to transition to comfort cares Anemia due to acute illness and blood loss - hemoglobin stable with no evidence for bleeding. -Transitioning to comfort cares Severe thrombocytopenia - Suspect combination of sepsis and possible disseminated intravascular coagulation. HIT workup was negative. Platelet level had been improving. -Comfort cares TYPE 2 DIABETES MELLITUS - sugars have stabilized and have been normal for several days. -Discontinue Accu-Cheks ACUTE KIDNEY INJURY - renal function has been stable after volume status was optimized. -Continue closely monitor urine output and renal function Holger Zambrano M.D.
[2018-03-02] MEDS ORDERED: Potassium Chloride 40 MEQ in Premix Bag 1 BAG IV ONE (09:30)
[2018-03-02] MEDS ORDERED: methylPREDNISolone Sodium Succinate 125 MG/2 ML SDV IVPUSH ONE (09:30)
[2018-03-02] MEDS ORDERED: Furosemide 40 MG/4 ML VIAL IVPUSH ONE (10:00)
[2018-03-02] MEDS ORDERED: Famotidine 20 MG/2 ML SDV IVPUSH SCH (10:00)
[2018-03-02 13:47] VITALS: BP 149/90
[2018-03-02] MEDS: Morphine 4 MG/ML Syringe IVPUSH PRN ×3 (21:06→22:22)
[2018-03-03] MEDS: Morphine 4 MG/ML Syringe IVPUSH PRN ×2 (02:51→05:31)
--- NOTE | 2018-03-03 08:53 | PCM.DCSUM1 ---
Discharge Summary - Hospital Course Brief History: 82-year-old female who was admitted for elective surgery to repair rectal prolapse as well as provide definitive surgical intervention for recurrent diverticulitis - Discharge Data Discharge Date: 03/03/18 Discharge Disposition: 20 Preliminary Cause of *Q: Sepsis & Multi System Organ Failure Condition: Undetermined - Patient Summary/Data Consults: Consultations 02/17/18 20:14 Consult to Physician [CONS] Stat Consulting Provider: Holger Zambrano Call Completed to Consulting Physician: Yes Reason for Consult: decreasing O2 sats Person Notified: Ashley Jean Date Notified: 02/17/18 Time Notified: 20:15 Special Instructions: 02/24/18 06:50 Consult to Physician [CONS] Stat Consulting Provider: Santana Lua Call Completed to Consulting Physician: No Reason for Consult: diflucan Special Instructions: Dr Lua will be consulted with morning rounds as he will already be rounding 02/28/18 10:15 Consult to Physical Therapy [PT Evaluation and Treatment] [CONS] Routine Please Evaluate and Treat. PT Reason for Consult: Strengthening Special Instructions: This query below is only for informational purposes and is not editable. Admission Diagnosis/Problem: Diverticulitis Hospital Course: Fantasma was admitted 02/14 for elective surgical intervention to repair rectal prolapse as well as definitively manage recurrent diverticulitis with a rectosigmoid colon resection. During surgery she did have a rectosigmoid colon resection as well as drainage of pericolonic abscess and a rectopexy. The immediate postop period was uneventful but after couple of days she did develop a postoperative ileus. On 02/18 she developed hypotension, hypoxia and acute kidney injury. Evaluation at that time was suggestive of intravascular volume depletion in a more aggressive volume resuscitation was attempted. Over the next couple of days she did make slow improvement with improvement in her blood pressure and acute kidney injury. She did continue to have hypoxia which was thought to be multifactorial with volume overload as well as COPD. For several days she made slow progress towards improvement. Overnight on February 21 she developed increasing abdominal pain as well as fever and hypotension. A CT scan obtained at that time revealed free intraperitoneal air as well as concern for abscess in the lower abdomen. She was taken to the operating room in the morning of February 22 and had a subtotal colectomy with ileostomy formation as well as drainage of the abscess. She developed septic shock from the infection and was admitted to the intensive care unit postoperatively. She required mechanical ventilation as well as norepinephrine for management of hypotension related to the septic shock. She redeveloped acute kidney injury in the setting of the septic shock. Over the next couple of days there appeared to be some movement towards improvement with decreasing vasopressor support decreasing ventilator support. Her platelet level did up significantly and did require platelet transfusion. The thrombocytopenia was thought to be related to sepsis and possible disseminated intravascular coagulation. HIT workup was initiated and did eventually return negative. Overnight on February 24 she developed a green color to 2 of her ESME drains concerning for bile leak or possibly ischemic bowel. The necessity of surgery occurred around the time of her platelet oh and she did require platelet transfusion prior to surgical intervention. Exploratory laparotomy did not reveal evidence for ischemic bowel. There is no obvious source of leak discovered. Postoperatively she was transferred back to the intensive care unit. She remained intubated. Sedation was held to see if she was ready for extubation. Fortunately the possible bile leak was fixed with the surgery and no additional bile-colored drainage was noted in the ESME drains. Hemodynamically she remained relatively stable. We were able to decrease the ventilator support to the point that she was requiring only small quantities of supplemental oxygen. Unfortunately her lethargy and at times obtundation limited our ability to extubate. She also had some tongue swelling that raised concern for airway obstruction. We try to optimize volume status over the next several days with the hope of extubation. Her mental status waxed and waned but at best she was alert for only a few seconds at a time. Sedation was held for several days without any significant improvement. We did perform a head CT which did not show any acute abnormalities. The day before discharge and the day before her passing her daughter Richelle asked to discuss the current situation. She felt that the current level of care as well as the very poor overall prognosis and significant reduction in quality of life would not be within the wishes of the patient. She asked that we withdraw care and provide aggressive comfort measures rather than ongoing invasive and painful things that would likely not add to her length or quality of life. The evening before her passing we discontinued all antibiotics and the endotracheal tube was removed. CODE STATUS was transitioned to comfort measures only. We utilized a GAME PROGRAMMER as well as intermittent IV push medication to help with air hunger and with pain. The patient did survive much longer than expected and passed peacefully the morning after care was withdrawn. No attempts at resuscitation were made per her previously expressed wishes. - Discharge Plan Home Medications: Home Meds Albuterol [Ventolin HFA] 2 puff INH Q4H PRN 03/13/14 [History] Allopurinol [Zyloprim] 150 mg PO BEDTIME 03/13/14 [History] Aspirin [Adult Low Dose Aspirin EC] 81 mg PO BEDTIME 03/13/14 [History] Budesonide [Pulmicort] 2 ml NEB BID 03/13/14 [History] Furosemide [Lasix] 40 mg PO DAILY PRN 03/13/14 [History] Ipratropium/Albuterol Sulfate [Duoneb 0.5 mg-3 mg/3 ml Soln] 3 ml NEB Q4HR PRN 03/13/14 [History] Isosorbide Mononitrate [Imdur] 30 mg PO DAILY 03/13/14 [History] Levothyroxine 75 mcg PO DAILY 03/13/14 [History] Pravastatin [Pravachol] 40 mg PO BEDTIME 03/13/14 [History] Theophylline [Theophylline Anhydrous] 400 mg PO DAILY 03/13/14 [History] predniSONE [Prednisone] 2.5 mg PO DAILY 03/13/14 [History] Nitroglycerin [Nitrostat] 0.4 mg SL Q5M PRN 04/10/16 [History] Carvedilol 3.125 mg PO BIDAC 12/19/17 [History] Pantoprazole [ProTONIX] 40 mg PO DAILY 12/19/17 [History] Warfarin [Coumadin] 1.25 mg PO ASDIRECTED 12/19/17 [History] Warfarin [Coumadin] 2.5 mg PO DAILY 12/19/17 [History] Codeine/guaiFENesin [Robitussin AC] 10 ml PO Q4H PRN #8 oz 12/25/17 [Rx] metroNIDAZOLE 250 mg PO Q6H #28 tablet 01/26/18 [Rx] Ondansetron HCl [Zofran] 4 mg PO Q8HR PRN 02/12/18 [History] Potassium Chloride [Klor-Con 10] 10 meq PO DAILY 02/12/18 [History] - Discharge Summary/Plan Comment DC Time >30 min.: No (25) - Patient Data Vitals - Most Recent: Last Vital Signs Temp 37.4 C 03/02/18 13:46 Pulse 92 03/02/18 15:02 Resp 28 H 03/02/18 13:46 BP 149/90 H 03/02/18 13:46 Pulse Ox 92 L 03/02/18 15:02 Weight - Most Recent: 38.419 kg I&O - Last 24 hours: Intake & Output 03/02/18 03/03/18 03/03/18 22:59 06:59 14:59 Intake Total 536 Output Total 650 450 Balance -114 -450 Lab Results - Last 24 hrs: Laboratory Results - last 24 hr 03/02/18 Range/Units 11:45 Vancomycin Trough 19.9 (10.0-20.0) ug/mL ILAN Results - Last 24 hrs: Microbiology 02/26/18 07:09 Aerobic Blood Culture - Final Blood - Arm, Right NO GROWTH AFTER 5 DAYS Anaerobic Blood Culture - Final NO GROWTH AFTER 5 DAYS 02/26/18 06:40 Aerobic Blood Culture - Final Blood - Central Line NO GROWTH AFTER 5 DAYS Anaerobic Blood Culture - Final NO GROWTH AFTER 5 DAYS 02/28/18 05:15 Aerobic Blood Culture - Final Blood - A-Line Staphylococcus Epidermidis Anaerobic Blood Culture - Final Staphylococcus Epidermidis 02/28/18 05:20 Aerobic Blood Culture - Preliminary Blood - Arm, Left NO GROWTH AFTER 3 DAYS Anaerobic Blood Culture - Preliminary NO GROWTH AFTER 3 DAYS 02/26/18 22:35 Aerobic Blood Culture - Preliminary Blood - Central Line NO GROWTH AFTER 4 DAYS Anaerobic Blood Culture - Preliminary NO GROWTH AFTER 4 DAYS 02/27/18 10:35 Aerobic Blood Culture - Preliminary Blood - Arm, Left NO GROWTH AFTER 3 DAYS Anaerobic Blood Culture - Preliminary NO GROWTH AFTER 3 DAYS 02/27/18 10:07 Aerobic Blood Culture - Preliminary Blood - Central Line NO GROWTH AFTER 3 DAYS Anaerobic Blood Culture - Preliminary NO GROWTH AFTER 3 DAYS 02/28/18 08:15 Catheter Tip Culture - Final Catheter Tip Other - Vega Catheter Yeast Isolated Med Orders - Current: Current Medications Discontinued Medications Acetaminophen (Tylenol Extra Strength) 1,000 mg PO ONETIME ONE Stop: 02/14/18 08:16 Last Admin: 02/14/18 08:31 Dose: 1,000 mg Acetaminophen (Tylenol) 650 mg PO Q6H [facility] Last Admin: 02/22/18 08:00 Dose: Not Given Albuterol/Ipratropium (Duoneb 3.0-0.5 Mg/3 Ml) 3 ml NEB ONETIME ONE Stop: 02/14/18 09:46 Last Admin: 02/14/18 12:32 Dose: 3 ml Albuterol/Ipratropium (Duoneb 3.0-0.5 Mg/3 Ml) 3 ml INH ASDIRECTED PRN PRN Reason: RESP Last Admin: 02/17/18 18:57 Dose: 3 ml Albuterol/Ipratropium (Duoneb 3.0-0.5 Mg/3 Ml) 3 ml INH QIDRT [facility] Last Admin: 03/02/18 15:01 Dose: 3 ml Allopurinol (Zyloprim) 150 mg PO DAILY [facility] Last Admin: 02/21/18 08:06 Dose: 150 mg Alvimopan (Entereg) 12 mg PO ONETIME ONE Stop: 02/14/18 08:16 Last Admin: 02/14/18 08:31 Dose: 12 mg Alvimopan (Entereg) 12 mg PO BID [facility] Stop: 02/21/18 09:01 Last Admin: 02/21/18 08:05 Dose: 12 mg Aspirin (Halfprin) 81 mg PO DAILY [facility] Last Admin: 02/22/18 09:00 Dose: Not Given Aztreonam (Azactam) Confirm Administered Dose 1 gm .ROUTE .STK-MED ONE Stop: 02/22/18 06:21 Last Admin: 02/22/18 06:20 Dose: 2 gm Aztreonam (Azactam) Confirm Administered Dose 1 gm .ROUTE .STK-MED ONE Stop: 02/22/18 06:21 Bisacodyl (Dulcolax) 10 mg PO BID [facility] Last Admin: 02/22/18 09:00 Dose: Not Given Bisacodyl (Dulcolax) 10 mg RECTAL TID [facility] Last Admin: 02/21/18 21:01 Dose: 10 mg Bisacodyl (Dulcolax) 10 mg RECTAL ONETIME ONE Stop: 02/21/18 10:01 Last Admin: 02/21/18 09:37 Dose: Not Given Budesonide (Pulmicort) 0.5 mg INH BIDRT [facility] Last Admin: 03/02/18 07:34 Dose: 0.5 mg Bupivacaine HCl (Marcaine 0.5%) Confirm Administered Dose 50 ml .ROUTE .STK-MED ONE Stop: 02/16/18 06:45 Last Admin: 02/16/18 07:44 Dose: 10 ml Bupivacaine HCl (Marcaine 0.5%) Confirm Administered Dose 50 ml .ROUTE .STK-MED ONE Stop: 02/27/18 07:44 Last Admin: 02/27/18 11:08 Dose: 16.5 ml Carvedilol (Coreg) 3.125 mg PO BIDMEALS [facility] Last Admin: 02/21/18 17:39 Dose: 3.125 mg Cefoxitin Sodium (Mefoxin) Confirm Administered Dose 2 gm .ROUTE .STK-MED ONE Stop: 02/14/18 08:44 Ropivacaine 25 ml/Dexamethasone 8 mg/Epinephrine HCl 0.4 mg/ Sodium Chloride 52.6 ml 0 ml NERVRT ASDIRECTED [facility] Neomycin/Polymyxin 1 ml/ (Sodium Chloride 500 ml) 0 ml IRR ONETIME ONE Stop: 02/14/18 08:16 Last Admin: 02/14/18 08:35 Dose: 750 irr Ropivacaine 25 ml/Dexamethasone 8 mg/Epinephrine HCl 0.4 mg/ Sodium Chloride 52.6 ml 0 ml NERVRT ASDIRECTED [facility] Last Admin: 02/16/18 07:59 Dose: 80 syringe Dexamethasone (Dexamethasone) Confirm Administered Dose 4 mg .ROUTE .ST-MED ONE Stop: 02/14/18 09:36 Dexamethasone (Dexamethasone) Confirm Administered Dose 4 mg .ROUTE .STK-MED ONE Stop: 02/22/18 04:44 Dextrose (Glutose 15) 15 gm PO ASDIRECTED PRN PRN Reason: HYPOGLYCEMIA Dextrose/Water (Dextrose 50% In Water) 50 ml IVPUSH ASDIRECTED PRN PRN Reason: HYPOGLYCEMIA Dextrose/Water (Dextrose 50% In Water) 25 ml IVPUSH ONETIME ONE Stop: 02/25/18 02:21 Last Admin: 02/25/18 02:28 Dose: 25 ml Diphenhydramine HCl (Benadryl) 25 mg IVPUSH Q6H PRN PRN Reason: Itching Last Admin: 02/14/18 15:58 Dose: 25 mg Ephedrine Sulfate (Ephedrine Sulfate) Confirm Administered Dose 50 mg .ROUTE .STK-MED ONE Stop: 02/14/18 13:50 Ephedrine Sulfate (Ephedrine Sulfate) Confirm Administered Dose 50 mg .ROUTE .STK-MED ONE Stop: 02/22/18 05:33 Erythromycin Ethylsuccinate (Eryped 400) 250 mg NGTUBE Q6H [facility] Last Admin: 02/22/18 04:26 Dose: Not Given Famotidine (Pepcid) 20 mg IVPUSH DAILY [facility] Last Admin: 03/02/18 10:09 Dose: 20 mg Fentanyl (Sublimaze) Confirm Administered Dose 250 mcg .ROUTE .STK-MED ONE Stop: 02/14/18 09:36 Fentanyl (Sublimaze) Confirm Administered Dose 100 mcg .ROUTE .STK-MED ONE Stop: 02/16/18 07:10 Fentanyl (Sublimaze) Confirm Administered Dose 250 mcg .ROUTE .STK-MED ONE Stop: 02/22/18 04:44 Fentanyl (Duragesic) Confirm Administered Dose 12 mcg .ROUTE .STK-MED ONE Stop: 02/22/18 05:42 Last Admin: 02/22/18 05:51 Dose: 12 mcg Fentanyl (Duragesic) 12 mcg TRDERM Q72H [facility] Last Admin: 02/25/18 06:37 Dose: 12 mcg Fentanyl (Sublimaze) Confirm Administered Dose 100 mcg .ROUTE .STK-MED ONE Stop: 02/23/18 07:51 Fentanyl (Sublimaze) Confirm Administered Dose 250 mcg .ROUTE .STK-MED ONE Stop: 02/25/18 09:02 Furosemide (Lasix) 40 mg PO DAILY [facility] Last Admin: 02/18/18 09:45 Dose: 40 mg Furosemide (Lasix) 20 mg IVPUSH ONETIME [facility] Stop: 02/17/18 20:03 Last Admin: 02/17/18 20:30 Dose: 20 mg Furosemide (Lasix) 40 mg IVPUSH NOW ONE Stop: 02/17/18 21:33 Last Admin: 02/17/18 21:53 Dose: 40 mg Furosemide (Lasix) 20 mg IVPUSH NOW ONE Stop: 02/21/18 10:01 Last Admin: 02/21/18 09:50 Dose: 20 mg Furosemide (Lasix) 20 mg IV ASDIRECTED [facility] Stop: 02/26/18 23:00 Last Admin: 02/26/18 11:21 Dose: 20 mg Furosemide (Lasix) 10 mg IV ASDIRECTED [facility] Stop: 02/27/18 16:00 Furosemide (Lasix) 20 mg IV ONETIME ONE Stop: 02/27/18 12:01 Last Admin: 02/27/18 21:23 Dose: 20 mg Furosemide (Lasix) Confirm Administered Dose 20 mg .ROUTE .STK-MED ONE Stop: 02/27/18 21:22 Last Admin: 02/27/18 21:30 Dose: Not Given Furosemide (Lasix) 40 mg IVPUSH ONETIME ONE Stop: 03/01/18 13:31 Last Admin: 03/01/18 13:38 Dose: 40 mg Furosemide (Lasix) 40 mg IVPUSH ONETIME ONE Stop: 03/02/18 10:01 Last Admin: 03/02/18 10:10 Dose: 40 mg Glucagon (Glucagen) Confirm Administered Dose 1 mg .ROUTE .STK-MED ONE Stop: 02/14/18 14:26 Glucagon (Glucagen) 1 mg IM ASDIRECTED PRN PRN Reason: HYPOGLYCEMIA Glycopyrrolate (Robinul) Confirm Administered Dose 1 mg .ROUTE .STK-MED ONE Stop: 02/14/18 09:36 Glycopyrrolate (Robinul) Confirm Administered Dose 1 mg .ROUTE .STK-MED ONE Stop: 02/22/18 04:44 Heparin Sodium (Porcine) (Heparin Lock Flush 100 Units/Ml) Confirm Administered Dose 500 units .ROUTE .STK-MED ONE Stop: 02/22/18 06:05 Last Admin: 02/22/18 08:30 Dose: 500 units Heparin Sodium (Porcine) (Heparin Sodium) Confirm Administered Dose 5,000 units .ROUTE .STK-MED ONE Stop: 02/22/18 07:34 Heparin Sodium (Porcine) (Heparin Sodium) Confirm Administered Dose 5,000 units .ROUTE .STK-MED ONE Stop: 02/22/18 09:11 Last Admin: 02/22/18 10:43 Dose: Not Given Hydromorphone HCl (Dilaudid Packager 15 Mg In Ns 30 Ml) 0 mg IV ASDIRECTED PRN; Protocol PRN Reason: GAME [employer]GRAM[employer] PAIN CONTROL Last Admin: 02/19/18 06:32 Dose: 15 mg Hydromorphone HCl (Dilaudid Packager 15 Mg In Ns 30 Ml) Confirm Administered Dose 15 mg IV .STK-MED ONE Stop: 02/17/18 10:18 Last Admin: 02/17/18 10:31 Dose: Not Given Hydromorphone HCl (Dilaudid Packager 15 Mg In Ns 30 Ml) 15 mg IV ASDIRECTED [facility]; Protocol Last Admin: 03/01/18 20:48 Dose: 15 mg Hydroxyzine HCl (Vistaril) 0 mg IM Q4H PRN PRN Reason: PAIN Last Admin: 02/22/18 01:27 Dose: 75 mg Hydroxyzine HCl (Vistaril) 75 mg IM ONETIME ONE Stop: 02/17/18 11:01 Last Admin: 02/17/18 11:00 Dose: 75 mg Dextrose/Lactated Ringer's (Dextrose 5%-Lactated Ringers) 1,000 mls @ 100 mls/ hr IV ASDIRECTED [facility] Last Admin: 02/14/18 12:44 Dose: 100 mls/hr Meropenem 500 mg/ Sodium (Chloride) 50 mls @ 100 mls/hr IV ONETIME ONE Stop: 02/14/18 10:14 Last Admin: 02/14/18 12:59 Dose: 100 mls/hr Fentanyl 2,500 mcg/ Sodium (Chloride) 250 mls @ 0 mls/hr EPIDUR TITRATE [facility]; Protocol Fentanyl Citrate 2,500 mcg/ (Sodium Chloride) 250 mls @ 0 mls/hr EPIDUR TITRATE [facility]; Protocol Last Admin: 02/15/18 15:05 Dose: 8 mls/hr, 8 mls/hr Lactated Ringer's (Ringers, Lactated) Confirm Administered Dose 1,000 mls @ as directed .ROUTE .STK-MED ONE Stop: 02/14/18 14:38 Dextrose/Lactated Ringer's (Dextrose 5%-Lactated Ringers) 1,000 mls @ 100 mls/ hr IV ASDIRECTED [facility] Dextrose/Lactated Ringer's (Dextrose 5%-Lactated Ringers) 1,000 mls @ 150 mls/ hr IV ASDIRECTED [facility] Last Admin: 02/15/18 02:48 Dose: 150 mls/hr Cefoxitin Sodium 2 gm/ Sodium (Chloride) 50 mls @ 100 mls/hr IV Q6H [facility] Last Admin: 02/17/18 08:48 Dose: 100 mls/hr Potassium Chloride/Dextrose/Sod Cl (D5 1/2 Ns W/ 20 Meq/L Kcl) 1,000 mls @ 80 mls/hr IV ASDIRECTED [facility] Last Admin: 02/15/18 09:37 Dose: 80 mls/hr Naloxone HCl 0.4 mg/ Potassium (Chloride/Dextrose/Sod Cl) 1,001 mls @ 80.08 mls /hr IV ASDIRECTED [facility] Last Admin: 02/16/18 04:38 Dose: 80.08 mls/hr Fentanyl Citrate 2,500 mcg/ (Sodium Chloride) 250 mls @ 4 mls/hr EPIDUR TITRATE [facility]; Protocol Last Admin: 02/15/18 22:56 Dose: 4 ml/hr, 4 mls/hr Potassium Chloride/Dextrose/Sod Cl (D5 1/2 Ns W/ 20 Meq/L Kcl) 1,000 mls @ 40 mls/hr IV ASDIRECTED [facility] Last Admin: 02/17/18 10:12 Dose: 100 mls/hr Potassium Phosphate 30 mmole/ (Sodium Chloride) 160 mls @ 54 mls/hr IV Q3H [facility] Stop: 02/17/18 16:58 Last Admin: 02/17/18 16:49 Dose: 54 mls/hr Dextrose/Lactated Ringer's (Dextrose 5%-Lactated Ringers) 1,000 mls @ 100 mls/ hr IV ASDIRECTED [facility] Last Admin: 02/19/18 08:52 Dose: 100 mls/hr Lactated Ringer's (Ringers, Lactated) 1,000 mls @ 250 mls/hr IV ASDIRECTED [facility] Stop: 02/18/18 14:31 Last Admin: 02/18/18 11:28 Dose: 250 mls/hr Acetaminophen 1,000 mg/ Premix 100 mls @ 400 mls/hr IV NOW ONE Stop: 02/18/18 11:16 Last Admin: 02/18/18 11:33 Dose: Not Given Dextrose/Lactated Ringer's (Dextrose 5%-Lactated Ringers) 1,000 mls @ 75 mls/ hr IV ASDIRECTED [facility] Last Admin: 02/20/18 23:39 Dose: 75 mls/hr Potassium Phosphate 22.5 mmole (/ Sodium Chloride) 257.5 mls @ 86 mls/hr IV Q3H [facility] Stop: 02/21/18 15:59 Last Admin: 02/21/18 12:55 Dose: 86 mls/hr Dextrose/Lactated Ringer's (Dextrose 5%-Lactated Ringers) 1,000 mls @ 50 mls/ hr IV ASDIRECTED [facility] Last Admin: 02/21/18 16:35 Dose: 50 mls/hr Meropenem 500 mg/ Sodium (Chloride) 50 mls @ 100 mls/hr IV ONETIME ONE Stop: 02/22/18 04:48 Last Admin: 02/22/18 05:30 Dose: 100 mls/hr Lactated Ringer's (Ringers, Lactated) Confirm Administered Dose 1,000 mls @ as directed .ROUTE .STK-MED ONE Stop: 02/22/18 05:19 Sodium Chloride (Normal Saline) Confirm Administered Dose 250 mls @ as directed .ROUTE .STK-MED ONE Stop: 02/22/18 06:14 Norepinephrine Bitartrate 4 mg (/ Dextrose/Water) 250 mls @ 7.5 mls/hr IV TITRATE [facility]; Protocol Last Titration: 02/22/18 10:29 Dose: 11 mcg/min, 41.25 mls/hr Lactated Ringer's (Ringers, Lactated) Confirm Administered Dose 1,000 mls @ as directed .ROUTE .ST-MED ONE Stop: 02/22/18 07:12 Dextrose/Lactated Ringer's (Dextrose 5%-Lactated Ringers) 1,000 mls @ 100 mls/ hr IV ASDIRECTED [facility] Last Admin: 02/24/18 10:13 Dose: 100 mls/hr Propofol (Diprivan 100 Ml) 100 mls @ 1.46 mls/hr IV TITRATE [facility]; Protocol Last Admin: 02/24/18 01:41 Dose: 5 mcg/kg/min, 1.46 mls/hr Lactated Ringer's (Ringers, Lactated) 1,000 mls @ 125 mls/hr IV ASDIRECTED [facility] Last Admin: 02/24/18 10:15 Dose: 125 mls/hr Meropenem 500 mg/ Sodium (Chloride) 50 mls @ 100 mls/hr IV Q6H [facility] Last Admin: 02/22/18 10:31 Dose: 100 mls/hr Aztreonam/Dextrose 1 gm/ (Premix) 50 mls @ 100 mls/hr IV Q8H [facility] Last Admin: 02/24/18 01:31 Dose: 100 mls/hr Lactated Ringer's (Ringers, Lactated) 1,000 mls @ 999 mls/hr IV .BOLUS ONE Stop: 02/22/18 11:00 Last Admin: 02/22/18 10:00 Dose: 999 mls/hr Lactated Ringer's (Ringers, Lactated) 750 mls @ 999 mls/hr IV ONETIME ONE Stop: 02/22/18 12:00 Last Admin: 02/22/18 11:15 Dose: 999 mls/hr Norepinephrine Bitartrate 4 mg (/ Dextrose/Water) 250 mls @ 7.5 mls/hr IV TITRATE [facility]; Protocol Stop: 02/22/18 17:30 Last Titration: 02/22/18 17:02 Dose: 12 mcg/min, 45 mls/hr Lactated Ringer's (Ringers, Lactated) 1,000 mls @ 999 mls/hr IV ASDIRECTED ONE Stop: 02/22/18 14:30 Last Admin: 02/22/18 13:30 Dose: 999 mls/hr Lactated Ringer's (Ringers, Lactated) 1,000 mls @ 500 mls/hr IV ONETIME ONE Stop: 02/22/18 16:29 Last Admin: 02/22/18 14:19 Dose: 500 mls/hr Meropenem 1 gm/ Sodium (Chloride) 50 mls @ 100 mls/hr IV Q12H [facility] Last Admin: 03/02/18 04:41 Dose: 100 mls/hr Vasopressin 100 units/ (Dextrose/Water) 255 mls @ 1.53 mls/hr IV TITRATE [facility]; Protocol Vasopressin 100 units/ (Dextrose/Water) 255 mls @ 1.53 mls/hr IV TITRATE [facility]; Protocol Last Titration: 02/22/18 15:57 Dose: 0.02 units/min, 3.06 mls/hr Norepinephrine Bitartrate 8 mg (/ Dextrose/Water) 500 mls @ 7.5 mls/hr IV TITRATE [facility]; Protocol Last Titration: 02/24/18 08:50 Dose: 0 mcg/min, 0 mls/hr Lactated Ringer's (Ringers, Lactated) 1,000 mls @ 250 mls/hr IV ONETIME ONE Stop: 02/22/18 20:29 Last Infusion: 02/22/18 20:04 Dose: 125 mls/hr Magnesium Sulfate 2 gm/ Premix 50 mls @ 25 mls/hr IV Q6H [facility] Stop: 02/23/18 17:29 Last Admin: 02/23/18 14:31 Dose: 25 mls/hr Vasopressin 40 units/ Dextrose (/Water) 100 mls @ 1.5 mls/hr IV TITRATE [facility]; Protocol Last Titration: 02/23/18 17:02 Dose: 0 units/min, 0 mls/hr Insulin Human Regular 100 unit (/ Sodium Chloride) 101 mls @ 0.5 mls/hr IV TITRATE [facility]; Protocol Last Titration: 02/24/18 07:49 Dose: 0 units/hr, 0 mls/hr Albumin Human (Albumin 25%) 25 gm in 100 mls @ 25 mls/hr IV DAILY [facility] Stop: 02/27/18 12:59 Last Admin: 02/27/18 08:58 Dose: 25 mls/hr Albumin Human (Albumin 25%) 25 gm in 100 mls @ 25 mls/hr IV Q24H [facility] Stop: 02/27/18 16:59 Last Admin: 02/27/18 14:04 Dose: 25 mls/hr Potassium Phosphate 22.5 mmole (/ Sodium Chloride) 107.5 mls @ 35 mls/hr IV Q3H [facility] Stop: 02/24/18 15:59 Last Admin: 02/24/18 13:01 Dose: 35 mls/hr Fluconazole/Sodium Chloride (200 mg/ Premix) 100 mls @ 100 mls/hr IV Q24H [facility] Last Admin: 03/02/18 09:03 Dose: 100 mls/hr Vancomycin HCl 1 gm/ Sodium (Chloride) 250 mls @ 167 mls/hr IV Q24H [facility] Last Admin: 02/26/18 11:05 Dose: 167 mls/hr Dextrose/Lactated Ringer's (Dextrose 5%-Lactated Ringers) 1,000 mls @ 50 mls/ hr IV ASDIRECTED [facility] Last Admin: 03/02/18 04:11 Dose: 50 mls/hr Linezolid (Zyvox) Confirm Administered Dose 300 mls @ as directed .ROUTE .STK- MED ONE Stop: 02/25/18 11:02 Magnesium Sulfate 2 gm/ Premix 50 mls @ 25 mls/hr IV Q6H [facility] Stop: 02/26/18 04:59 Last Admin: 02/26/18 03:00 Dose: 25 mls/hr Potassium Phosphate 22.5 mmole (/ Sodium Chloride) 107.5 mls @ 35 mls/hr IV Q3H [facility] Stop: 02/26/18 15:29 Last Admin: 02/26/18 13:23 Dose: 35 mls/hr Acetaminophen 1,000 mg/ Premix 100 mls @ 400 mls/hr IV NOW ONE Stop: 02/26/18 22:40 Last Admin: 02/26/18 22:43 Dose: 400 mls/hr Potassium Phosphate 22.5 mmole (/ Sodium Chloride) 107.5 mls @ 35 mls/hr IV Q3H [facility] Stop: 02/27/18 15:29 Last Admin: 02/27/18 14:21 Dose: 35 mls/hr Vancomycin HCl 1.25 gm/ Sodium (Chloride) 250 mls @ 167 mls/hr IV Q24H [facility] Last Admin: 03/01/18 11:25 Dose: 167 mls/hr Potassium Chloride 40 meq/ (Premix) 100 mls @ 25 mls/hr IV ONETIME ONE Stop: 03/02/18 13:29 Last Admin: 03/02/18 10:04 Dose: 25 mls/hr Vancomycin HCl 1 gm/ Sodium (Chloride) 250 mls @ 167 mls/hr IV Q24H [facility] Ibuprofen (Motrin) 400 mg PO Q6H [facility] Last Admin: 02/17/18 08:22 Dose: 400 mg Insulin Aspart (Novolog) Confirm Administered Dose 300 unit .ROUTE .STK-MED ONE Stop: 02/23/18 06:25 Last Admin: 02/23/18 06:43 Dose: 10 units Insulin Aspart (Novolog) 0 unit SUBCUT Q6H PRN; Protocol PRN Reason: MEDIUM CORRECTIONAL DOSE Last Admin: 02/23/18 12:17 Dose: 12 units Insulin Detemir (Levemir) Confirm Administered Dose 300 unit .ROUTE .STK-MED ONE Stop: 02/23/18 06:09 Last Admin: 02/23/18 06:43 Dose: 10 units Insulin Detemir (Levemir) 10 unit SUBCUT Q12H [facility] Last Admin: 02/24/18 06:11 Dose: 10 units Isosorbide Mononitrate (Imdur) 30 mg PO DAILY [facility] Last Admin: 02/22/18 09:00 Dose: Not Given Ketamine HCl (Ketalar) 25 mg IV ASDIRECTED [facility] Ketorolac Tromethamine (Toradol) Confirm Administered Dose 60 mg .ROUTE .STK- MED ONE Stop: 02/25/18 09:07 Levothyroxine Sodium (Levothyroxine) 75 mcg PO ACBREAKFAST [facility] [facility] Last Admin: 02/22/18 08:31 Dose: Not Given Lidocaine HCl (Xylocaine-Mpf 1%) Confirm Administered Dose 5 ml .ROUTE .STK-MED ONE Stop: 02/14/18 12:41 Last Admin: 02/14/18 16:48 Dose: Not Given Lidocaine HCl (Xylocaine-Mpf 1%) 0.1 ml INJECT ONETIME ONE Stop: 02/14/18 12:43 Last Admin: 02/14/18 16:48 Dose: Not Given Lidocaine/Epinephrine (Xylocaine 1% With Epinephrine 1:100,000) Confirm Administered Dose 50 ml .ROUTE .STK-MED ONE Stop: 02/16/18 06:45 Last Admin: 02/16/18 07:44 Dose: 10 ml Lidocaine/Epinephrine (Xylocaine 1% With Epinephrine 1:100,000) Confirm Administered Dose 50 ml .ROUTE .STK-MED ONE Stop: 02/27/18 07:44 Last Admin: 02/27/18 11:09 Dose: 16.5 ml Linezolid (Zyvox) 600 mg IRR .STK-MED ONE Stop: 02/25/18 12:21 Last Admin: 02/25/18 12:20 Dose: 600 mg Magnesium Hydroxide (Milk Of Magnesia) 30 ml PO BID [facility] Stop: 02/16/18 21:01 Last Admin: 02/16/18 20:18 Dose: 30 ml Magnesium Hydroxide (Milk Of Magnesia) 30 ml PO ASDIRECTED PRN PRN Reason: * Melatonin (Melatonin) 9 mg PO BEDTIME PRN PRN Reason: Insomnia Last Admin: 02/22/18 00:39 Dose: 9 mg Meperidine HCl (Demerol) 75 mg IM ONETIME ONE Stop: 02/17/18 11:01 Last Admin: 02/17/18 11:00 Dose: 75 mg Meropenem (Merrem) Confirm Administered Dose 500 mg .ROUTE .STK-MED ONE Stop: 02/14/18 08:44 Last Admin: 02/14/18 14:30 Dose: 500 mg Meropenem (Merrem) Confirm Administered Dose 500 mg .ROUTE .STK-MED ONE Stop: 02/16/18 06:45 Last Admin: 02/16/18 07:49 Dose: 500 mg Meropenem (Merrem) Confirm Administered Dose 500 mg .ROUTE .STK-MED ONE Stop: 02/22/18 05:07 Meropenem (Merrem) Confirm Administered Dose 1,500 mg .ROUTE .STK-MED ONE Stop: 02/22/18 05:51 Meropenem (Merrem) Confirm Administered Dose 500 mg .ROUTE .STK-MED ONE Stop: 02/22/18 06:05 Last Admin: 02/22/18 06:00 Dose: 3,500 mg Meropenem (Merrem) Confirm Administered Dose 1,000 mg .ROUTE .STK-MED ONE Stop: 02/22/18 06:40 Meropenem (Merrem) 1,000 mg IRR ONETIME ONE Stop: 02/22/18 07:31 Last Admin: 02/22/18 07:30 Dose: 1,000 mg Meropenem (Merrem) Confirm Administered Dose 1,000 mg .ROUTE .STK-MED ONE Stop: 02/23/18 06:39 Last Admin: 02/23/18 10:18 Dose: 1,500 mg Meropenem (Merrem) Confirm Administered Dose 500 mg .ROUTE .STK-MED ONE Stop: 02/27/18 07:44 Last Admin: 02/27/18 11:09 Dose: 500 mg Methylprednisolone Sodium Succinate (Solu-Medrol) 40 mg IVPUSH Q12H [facility] Last Admin: 02/22/18 01:34 Dose: 40 mg Methylprednisolone Sodium Succinate (Solu-Medrol) 125 mg IVPUSH ONETIME ONE Stop: 03/02/18 09:31 Last Admin: 03/02/18 10:08 Dose: 125 mg Metoclopramide HCl (Reglan) 10 mg IVPUSH Q8H [facility] Last Admin: 02/22/18 01:34 Dose: 10 mg Midazolam HCl (Versed 1 Mg/Ml) Confirm Administered Dose 10 mg .ROUTE .STK-MED ONE Stop: 02/27/18 09:30 Last Admin: 02/27/18 12:28 Dose: Not Given Midazolam HCl (Versed 1 Mg/Ml) 6 mg IV ONETIME ONE Stop: 02/27/18 10:01 Last Admin: 02/27/18 09:30 Dose: 6 mg Morphine Sulfate (Morphine) 4 mg IVPUSH Q30M PRN PRN Reason: Pain Last Admin: 03/03/18 05:31 Dose: 4 mg Naloxone HCl (Narcan) 0.1 mg IVPUSH Q5M PRN PRN Reason: RESP RATE LESS THAN 6/MINUTE Last Admin: 02/15/18 15:23 Dose: 0.1 mg Naloxone HCl (Narcan) 0.1 mg IV ASDIRECTED PRN PRN Reason: decreased respiratory rate Neostigmine Methylsulfate (Neostigmine) Confirm Administered Dose 5 mg .ROUTE .STK-MED ONE Stop: 02/14/18 09:36 Neostigmine Methylsulfate (Neostigmine) Confirm Administered Dose 5 mg .ROUTE .STK-MED ONE Stop: 02/22/18 04:44 Nitroglycerin (Nitrostat) 0.4 mg SL ASDIRECTED PRN PRN Reason: CHEST PAIN Fentanyl Patch Check 1 each TOP BID [facility] Last Admin: 02/27/18 09:00 Dose: Not Given Ondansetron HCl (Zofran) Confirm Administered Dose 4 mg .ROUTE .STK-MED ONE Stop: 02/14/18 09:36 Ondansetron HCl (Zofran) 4 mg IVPUSH Q4H PRN PRN Reason: NAUSEA Last Admin: 02/22/18 00:43 Dose: 4 mg Ondansetron HCl (Zofran) Confirm Administered Dose 4 mg .ROUTE .STK-MED ONE Stop: 02/22/18 04:44 Pantoprazole Sodium (Protonix Iv) 40 mg IV Q24H [facility] Last Admin: 02/16/18 17:44 Dose: 40 mg Pantoprazole Sodium (Protonix) 40 mg PO ACBREAKFAST [facility] Last Admin: 02/22/18 10:05 Dose: Not Given Pantoprazole Sodium (Protonix Iv) 40 mg IV Q24H [facility] Last Admin: 03/01/18 14:14 Dose: 40 mg Trans-Derm Scop (Patch Removal) 0 each TOP ONETIME ONE Stop: 02/16/18 14:01 Last Admin: 02/16/18 15:05 Dose: Not Given Phenylephrine HCl (Manuel-Synephrine) Confirm Administered Dose 10 mg .ROUTE .STK- MED ONE Stop: 02/22/18 05:40 Piperacillin Sod/Tazobactam Sod (Zosyn) 3.375 gm .ROUTE .STK-MED ONE Stop: 02/25/18 13:01 Prednisone (Prednisone) 2.5 mg PO DAILY [facility] Last Admin: 02/18/18 09:45 Dose: 2.5 mg Prednisone (Prednisone) 10 mg PO DAILY [facility] Last Admin: 02/18/18 11:38 Dose: 10 mg Propofol (Diprivan 20 Ml) Confirm Administered Dose 200 mg .ROUTE .STK-MED ONE Stop: 02/14/18 09:36 Propofol (Diprivan 20 Ml) Confirm Administered Dose 200 mg .ROUTE .STK-MED ONE Stop: 02/16/18 07:10 Propofol (Diprivan 20 Ml) Confirm Administered Dose 200 mg .ROUTE .STK-MED ONE Stop: 02/22/18 04:44 Propofol (Diprivan 20 Ml) Confirm Administered Dose 200 mg .ROUTE .STK-MED ONE Stop: 02/23/18 06:59 Rocuronium [place] (Zemuron) Confirm Administered Dose 50 mg .ROUTE .STK-MED ONE Stop: 02/14/18 09:36 Rocuronium [place] (Zemuron) Confirm Administered Dose 50 mg .ROUTE .STK-MED ONE Stop: 02/22/18 04:44 Rocuronium [place] (Zemuron) Confirm Administered Dose 50 mg .ROUTE .STK-MED ONE Stop: 02/23/18 06:59 Rocuronium [place] (Zemuron) Confirm Administered Dose 50 mg .ROUTE .STK-MED ONE Stop: 02/25/18 09:02 Scopolamine (Transderm-Scop) 1.5 mg TOP ONETIME ONE Stop: 02/14/18 08:16 Last Admin: 02/14/18 08:32 Dose: 1.5 mg Senna (Senna) 8.6 mg PO BEDTIME [facility] Last Admin: 02/15/18 21:24 Dose: 8.6 mg Senna (Senna) 17.2 mg PO BEDTIME [facility] Last Admin: 02/21/18 20:54 Dose: 17.2 mg Succinylcholine Chloride (Quelicin) Confirm Administered Dose 200 mg .ROUTE .STK -MED ONE Stop: 02/14/18 09:36 Succinylcholine Chloride (Quelicin) Confirm Administered Dose 200 mg .ROUTE .STK -MED ONE Stop: 02/22/18 04:44 Theophylline (Pablito-24) 400 mg PO DAILY [facility] Last Admin: 02/19/18 09:31 Dose: 400 mg Tramadol HCl (Ultram) 50 mg PO Q6H PRN PRN Reason: PAIN Last Admin: 02/17/18 04:00 Dose: 50 mg Vancomycin HCl (Vancomycin) 1 gm IV .PHARMACY TO DOSE [facility] Stop: 02/24/18 12:00
--- NOTE | 2018-03-03 13:55 | PN ---
DATE OF SERVICE: 03/03/2018 After discussion with the family yesterday, the decision was made to withdraw treatment and she did have some fairly agonal breathing at this point and otherwise no major changes are noted. We expect the patient to in the next 24 hours based on her respiratory pattern. Robert Pate MD /[id number]
--- NOTE | 2018-03-04 09:49 | CR ---
Portable chest Comparison: Previous day. Findings: The endotracheal tube is unchanged. There is a right subclavian catheter which courses ceph alad. There is a cardiac pacemaker on the left. There are shallow lung volumes. Bilateral pleural eff usions are unchanged. There is bibasilar atelectasis and/or infiltrate. Impression: 1. No significant interval change from the previous day.
--- NOTE | 2018-03-04 11:46 | PN ---
DATE OF SERVICE: 03/02/2018 The patient has had T-max of 99 over the last 24 hours. Otherwise clinically appears to be stable. Her tongue is quite swollen and that may be the only period of expectation at this point that would be up to Dr. Zambrano. Otherwise appears to be clinically stable at this point and laboratory values look roughly to status quoi. We can give the present antibiotic management and management per Dr. Zambrano. Robert Pate MD /[id number]
--- NOTE | 2018-03-04 12:29 | PN ---
DATE OF SERVICE: 03/01/2018 The patient appears to have a tougher adjust after a line change yesterday. This would be fortunate if this was a cause of the fever, otherwise she still is quite sleepy and Dr. Zambrano is planning to get a CT scan of the head. Her G-tube continues to work satisfactory and ileostomy is putting out some green output as one would expect. Her actual white count was 3.2 and hemoglobin 11.1. Arterial blood gases continue to look satisfactory, though it was actually down somewhat today to 1.9. Overall, she appears to be gradually improving. Whether or not she's ready for extubation today will I think be dependent on what is found on the CT scan, and whether or not she wakes up somewhat further and that will be up to Dr. Zambrano, otherwise continue present antibiotics and other management. Robert Pate MD /[id number]
--- NOTE | 2018-03-04 12:32 | OR ---
DATE OF PROCEDURE: 02/27/2018 PREOPERATIVE DIAGNOSIS: Open abdominal incision. POSTOPERATIVE DIAGNOSIS: Open abdominal incision. OPERATIVE PROCEDURE: Delayed primary closure of open abdominal incision. ANESTHESIA: Local plus IV sedation. INDICATION FOR PROCEDURE: The patient is status post multiple contaminated laparotomy type procedure. At this point, she was felt to be a good candidate for a delayed primary closure with previous surgeries felt to be inappropriate as far as skin closure. Potential risks of procedure were reviewed with the patient's daughter, who wishes to proceed. DETAILS OF PROCEDURE: The patient was placed in ICU bed, then some IV sedation was administered using Versed and the operative dressing was taken down, the wound was inspected and found to be clean. The area was then prepped and draped, and anesthetized with 1% lidocaine mixed with Marcaine and then irrigated with a meropenem-containing saline solution. A Kenneth-Banda drain was then placed through a stab wound adjacent to the incision and the incision was then closed with 2 layers of 3-0 and a 4-0 Vicryl stitch deep and selene for the skin. The drain was affixed with a 4-0 Vicryl stitch. The patient was taken to the recovery room in satisfactory condition. Robert Pate MD /[id number]
--- NOTE | 2018-03-07 11:11 | OR ---
DATE OF PROCEDURE: 02/25/2018 PREOPERATIVE DIAGNOSIS: Peritoneal drainage consisting of gastrointestinal contents. POSTOPERATIVE DIAGNOSES: 1. Focal gastric perforation with inflammatory perigastric fluid collection. 2. Contaminated Vicryl intraperitoneal mesh. OPERATIVE PROCEDURES: Exploratory laparotomy with; 1. Closure of gastric perforation, (62651). 2. Drainage of perigastric abscess or inflammatory fluid collection, (51641). 3. Removal of contaminated intraperitoneal mesh, (48870). 4. Placement of additional Vicryl mesh to displace viscera from pelvic and abdominal christine to avoid problems with secondary adhesion formation as well as possible small bowel fistula formation at the points where the bowel would be up against the fascial closure sutures, (11015). ANESTHESIA: General. INDICATION FOR PROCEDURE: Please see progress notes. The patient presents once again with some GI tract drainage. It is unclear where this is coming from. Plan is to proceed with an exploratory laparotomy with procedures as indicated. Potential risks including further bleeding, infection, and the secondary likelihood that this overall picture may result in mortality were reviewed with the patient's daughter, and she wishes to proceed. DETAILS OF PROCEDURE: The patient was taken to the operating room and placed in a supine position. After general endotracheal anesthesia was induced, the abdomen was prepped and draped. Previous packing was taken down as well. The previous midline fascia was then re- opened and general exploration undertaken. The patient's new problem had to do with gastric perforation. This was just to the medial aspect of the gastrostomy tube. This appeared to have more or less digested its way through the stomach at that level and resulted in focal perigastric inflammatory fluid collection or abscess. This was evacuated and cultures obtained. Following this, then the area of gastric perforation was closed with some 2-0 Vicryl stitch and then subsequently reinforced with some fibrin sealant. At that point, the general abdomen was once again irrigated with meropenem-containing saline solution until all areas were clear. The drains that had been present were then replaced and placed in the general locations, but now focused more in the area of the perigastric area. The patient, on entrance to the abdomen, had some obviously contaminated Vicryl mesh. This had been removed and a new Vicryl mesh was then placed to displace the viscera from the pelvic and abdominal christine, as well as limit the chance of the patient developing evisceration should fascial dehisence occur or small bowel fistula from the small bowel being directly up against the fascia closure sutures. After the new mesh was placed, the incision was then closed with #2 Vicryl stitch. Skin and subcutaneous tissue were packed open with iodoform gauze. The patient was taken back to the ICU in an otherwise stable condition. Robert Pate MD /[id number]
--- NOTE | 2018-03-08 10:32 | OR ---
DATE OF PROCEDURE: 02/22/2018 PREOPERATIVE DIAGNOSIS: Indication for central venous access. POSTOPERATIVE DIAGNOSES: 1. Marked colonic distention with generalized colonic ischemia and perforation of colorectal anastomosis. 2. Intraabdominal abscess adjacent to colorectal abscess. 3. Necrotic area of abdominal wall. 4. Contaminated intraperitoneal mesh. 5. Expected prolonged postoperative ileus. OPERATIVE PROCEDURES: 1. Insertion of right internal jugular vein triple-lumen catheter, (67005). 2. Exploratory laparotomy with;. a. Total abdominal colectomy with Liam's pouch and formation of continent ileostomy, (85436). b. Drainage of intra-abdominal abscess, (22283). c. Removal of contaminated intraperitoneal mesh, (12129). d. Debridement of abdominal wall, (70242). e. Placement of tube gastrostomy, (39365). ANESTHESIA: General. RECOVERY UNIT OPERATOR: HIEU Arreguin. INDICATIONS FOR PROCEDURE: Please see progress note dated earlier today. DETAILS OF PROCEDURE: The patient was taken to the operating room and after general endotracheal anesthesia was induced, the upper chest and neck areas were initially prepped and draped. Initially, the right subclavian vein was cannulated, but the wire persistently moved up into the neck. Given this, then the right internal jugular vein was cannulated with ultrasound guidance and guidewire passed and over this and a triple-lumen catheter was placed. Good in and out flows were noted, and the ports were flushed with heparinized saline. The catheter was secured to the skin with some 3-0 silk stitch. Dressing was applied. Subsequent chest x-ray showed no complications and good catheter position with the tip being in the right atrium. At this point, the abdomen was prepped and draped. The previously placed selene and sutures in the lower midline incision were then taken down and abdomen was entered. Internal exploration at this point showed an area of abscess formation adjacent to the colorectal anastomosis, extending from there somewhat into the pelvis. The infracolic peritoneum in general had some thin staining of bilious nature. The colon in general was markedly distended, particularly in the transverse colon and to a lesser extent the cecum. There were some obvious ischemic changes related to the marked distention of the colon and the point of perforation was at the colorectal anastomosis, which with the degree of distention would likely have been the weakest spot, and the likely place where the leak would occur with the striking postoperative ileus that had developed. The abscess was then drained and cultures obtained. The intraperitoneal mesh along the upper rectum which was obviously contaminated, and this was removed at this point. At that point, given the appearance of the colon in general, the decision was made to proceed with total abdominal colectomy with Liam's pouch and ileostomy formation. The distal ileum was then divided with a HANNAH stapler. The peritoneal reflection of the cecum and ascending colon were then taken down, and those areas mobilized medially with care taken to avoid injury to the right ureter and duodenum. The omentum was then detached from the stomach as this was quite stained with the bilious material, and this was eventually resected along with the transverse colon. At this point, the mesentery of the cecum, ascending colon, and transverse colon were taken down with a sequence of vascular and mesenteric selene. The splenic flexure was actually quite easily mobilized downward with primarily blunt dissection along with electrocautery. The peritoneal reflection of the descending and sigmoid colon were then taken down and those areas then reflected medially as well and care taken once again to avoid injury to, in this case, the left ureter. This was then continued down to the level of the anastomosis. Just below the anastomosis, using a curved black HANNAH load, the rectum was divided and the remaining vascular attachments to the colon and rectum were divided with vascular mesenteric loads and those specimens delivered from the field. At this point, a premarked location in the left abdomen, slightly below the umbilicus, centered more or less through the center of the rectus abdominis muscle, a circular incision was made in the skin and carried down through the skin and subcutaneous tissue. An X-type incision in the anterior rectus sheath was then made, and the rectus muscle then spread, and the peritoneum underlying this opened up as well. A functionally continent ileostomy was then quickly fashioned, flipping the distal ileum on itself and through the apex of that bowel, a small opening was made and an anastomosis between the 2 lengths of the small bowel then created, beginning a few centimeters below the actual apex of that area. The apex of that was then brought up through the ileostomy site, fixed to the abdominal wall from within with some 3-0 Vicryl stitch as well as the fascia with 0 Vicryl stitch and then matured at the end of the procedure. At this point, the abdomen had been irrigated multiple times with a meropenem-containing saline solution. The abdominal wall, which was evidently necrotic and portion of the peritoneum musculature and subcutaneous tissue, that area was then debrided. At this point then, attention was taken to placement of the tube gastrostomy. Given the patient's expected prolonged ileus, the mid-greater curvature of the stomach was then brought up. Pursestring stitch around it was placed with 3-0 Vicryl stitch, and the abdominal wall incision was then made. A 20-Sinhala Vega catheter was brought through the abdominal wall, placed into gastrotomy, centered at the point of the pursestring stitch. The catheter was placed into the stomach and inflated with 10 mL of saline. The pursestring stitch was then drawn up and then once tied, this was then used to initially fix the stomach up against the abdominal wall. Three additional sutures were then placed around the gastrostomy site between the gastric wall and the overlying peritoneum again with 3-0 Vicryl stitch, and the tube affixed at the skin level with a 3-0 nylon stitch. At this point, no further problems were noted. Four Kenneth-Banda drains were placed, 2 in the pelvis and along the left pericolic area. The midline fascia was then approximated with #2 Vicryl stitch and the skin and subcutaneous tissue were obviously left open for a potential delayed primary closure in 48 hours. The patient was taken to the ICU. At that point, an arterial line had been placed as well. The patient will be maintained on a ventilated condition. She was actually quite hemodynamically stable through the procedure. Given the extent of contamination, the plan will be to proceed with a secondary laparotomy for a washout and evaluation of the remaining viscera tomorrow morning. Robert Pate MD /[id number]
--- NOTE | 2018-03-08 10:47 | OR ---
DATE OF PROCEDURE: 02/23/2018 PREOPERATIVE DIAGNOSES: 1. Status post laparotomy with extensive contamination. 2. Focal small intraabdominal hematomas. 3. Small-bowel at high risk for extensive adhesions to the abdominal and pelvic christine as well as fistula formation related to possible erosion through sutures. OPERATIVE PROCEDURE: 1. Re-opening of recent laparotomy with generalized evaluation and irrigation along with evacuation of scattered hematomas (46317). 2. Placement of Vicryl mesh to displaced pelvic and abdominal wall from underlying viscera to limit adhesion formation at that level as well as possible small bowel fistula formation, where the bowel likely up against the fascial closer sutures (39175). ANESTHESIA: General. INDICATION FOR PROCEDURE: Please see progress notes. Potential risks of the procedure were reviewed with the patient's daughter and she wishes to proceed. DETAILS OF PROCEDURE: The patient was taken to the operating room and after general endotracheal anesthesia was induced, the previous fascia was then taken down and the general exploration was undertaken. At this point, no further obvious infectious-type fluid collections were noted. There were some scattered hematomas present. These were all evacuated and the abdomen was then irrigated diffusely with meropenem-containing saline solution. At that point, the bowel wall appeared to be viable at this point and well- perfused. The ileostomy likewise was in good position. At that point, the 12-inch area of Vicryl mesh was placed behind the urinary bladder up along the pelvic sidewalls and up against the abdominal wall to displace those surfaces from the underlying viscera. This would avoid adhesion formation should there be an additional subsequent laparotomies over time as well as avoiding the small bowel being more or less directly up against the fascia closure sutures, which might lead to small bowel fistula formation. The midline fascia was then approximated with a #2 Vicryl stitch and the skin and subcutaneous tissue were left open for a potential delayed primary closure in 48 to 72 hours. The patient remained hemodynamically stable and will be returned to the ICU in a continued ventilated condition. Robert Pate MD /[id number]
--- NOTE | 2018-03-08 12:58 | PN ---
DATE OF SERVICE: 02/22/2018 SUBJECTIVE: The patient overnight has become more toxic in appearance and the ESME drains presently now putting out some obvious GI content. These drains are in the area of the colorectal anastomosis. After discussion of treatment options, the plan is to proceed with an exploratory laparotomy with procedures as indicated. This would likely include some degree of bowel resection as well as likely ileostomy or colostomy. This was reviewed with the patient and daughter, who was present, and they wished to proceed. A central line will also be placed to facilitate ongoing IV access as well central venous monitoring postoperatively. Gastrostomy tube likewise will also be placed so as to avoid the need for long-term nasogastric tube placement, and potential risks of the procedure were reviewed including bleeding, infection, leaks from any GI tract closures as well as possibility of cardiopulmonary, septic, or hemorrhagic complications may lead to with the present clinical situation were all reviewed with the patient and daughter, and they wished to proceed. The surgery will be taken early this morning. Robert Pate MD /[id number]
== END 2018-03-03 07:45 | disposition expired | DRG 326 ==
LOC: EDSTATUS 07:30 → JP.SDS 08:14 → JP.MS 08:14 → JP.2SS 16:45 → JP.ICU 02-18 11:30
PROVIDERS: ADMIT Surgery; ATTEND Surgery
PROC: 0DTN0ZZ Resection of Sigmoid Colon, Open Approach (ICD-10-PCS; principal; 2018-02-14)
PROC: 0DTP0ZZ Resection of Rectum, Open Approach (ICD-10-PCS; 2018-02-14)
PROC: 0DSP0ZZ Reposition Rectum, Open Approach (ICD-10-PCS; 2018-02-14)
PROC: 0D9W0ZX Drainage of Peritoneum, Open Approach, Diagnostic (ICD-10-PCS; 2018-02-14)
PROC: 0WQF0ZZ Repair Abdominal Wall, Open Approach (ICD-10-PCS; 2018-02-16)
PROC: 3E0T3BZ Introduction of Anesthetic Agent into Peripheral Nerves and Plexi, Percutaneous Approach (ICD-10-PCS; 2018-02-16)
PROC: 0DBE0ZZ Excision of Large Intestine, Open Approach (ICD-10-PCS; 2018-02-22)
PROC: 0D1B0Z4 Bypass Ileum to Cutaneous, Open Approach (ICD-10-PCS; 2018-02-22)
PROC: 5A1955Z Respiratory Ventilation, Greater than 96 Consecutive Hours (ICD-10-PCS; 2018-02-22)
PROC: 0D9W0ZX Drainage of Peritoneum, Open Approach, Diagnostic (ICD-10-PCS; 2018-02-22)
PROC: 0WPF0JZ Removal of Synthetic Substitute from Abdominal Wall, Open Approach (ICD-10-PCS; 2018-02-22)
PROC: 0DH60UZ Insertion of Feeding Device into Stomach, Open Approach (ICD-10-PCS; 2018-02-22)
PROC: 0HD7XZZ Extraction of Abdomen Skin, External Approach (ICD-10-PCS; 2018-02-22)
PROC: 05H533Z Insertion of Infusion Device into Right Subclavian Vein, Percutaneous Approach (ICD-10-PCS; 2018-02-23)
PROC: 30233N1 Transfusion of Nonautologous Red Blood Cells into Peripheral Vein, Percutaneous Approach (ICD-10-PCS; 2018-02-23)
PROC: 3E0M05Z Introduction of Adhesion Barrier into Peritoneal Cavity, Open Approach (ICD-10-PCS; 2018-02-23)
PROC: 3E1M38Z Irrigation of Peritoneal Cavity using Irrigating Substance, Percutaneous Approach (ICD-10-PCS; 2018-02-23)
PROC: 30233N1 Transfusion of Nonautologous Red Blood Cells into Peripheral Vein, Percutaneous Approach (ICD-10-PCS; 2018-02-24)
PROC: 30233R1 Transfusion of Nonautologous Platelets into Peripheral Vein, Percutaneous Approach (ICD-10-PCS; 2018-02-25)
PROC: 0DL70ZZ Occlusion of Stomach, Pylorus, Open Approach (ICD-10-PCS; 2018-02-25)
PROC: 0D9W0ZX Drainage of Peritoneum, Open Approach, Diagnostic (ICD-10-PCS; 2018-02-25)
PROC: 0WPF0JZ Removal of Synthetic Substitute from Abdominal Wall, Open Approach (ICD-10-PCS; 2018-02-25)
PROC: 3E0M05Z Introduction of Adhesion Barrier into Peritoneal Cavity, Open Approach (ICD-10-PCS; 2018-02-25)
PROC: 30233N1 Transfusion of Nonautologous Red Blood Cells into Peripheral Vein, Percutaneous Approach (ICD-10-PCS; 2018-02-26)
PROC: 30233N1 Transfusion of Nonautologous Red Blood Cells into Peripheral Vein, Percutaneous Approach (ICD-10-PCS; 2018-02-27)
PROC: 0WQF0ZZ Repair Abdominal Wall, Open Approach (ICD-10-PCS; 2018-02-27)
DX: K57.20 Diverticulitis of large intestine with perforation and abscess without bleeding (principal); J96.91 Respiratory failure, unspecified with hypoxia; A41.81 Sepsis due to Enterococcus; A41.89 Other specified sepsis; R65.21 Severe sepsis with septic shock; D65 Disseminated intravascular coagulation [defibrination syndrome]; N17.9 Acute kidney failure, unspecified; K56.7 Ileus, unspecified; D62 Acute posthemorrhagic anemia; Z51.5 Encounter for palliative care; Z66 Do not resuscitate; K62.3 Rectal prolapse; Z48.1 Encounter for planned postprocedural wound closure; E87.70 Fluid overload, unspecified; I95.9 Hypotension, unspecified; B99.9 Unspecified infectious disease; I48.91 Unspecified atrial fibrillation; Z79.01 Long term (current) use of anticoagulants; E03.9 Hypothyroidism, unspecified; I20.9 Angina pectoris, unspecified; J44.9 Chronic obstructive pulmonary disease, unspecified; D69.6 Thrombocytopenia, unspecified; Z86.73 Personal history of transient ischemic attack (TIA), and cerebral infarction without residual deficits; K21.9 Gastro-esophageal reflux disease without esophagitis; Z95.0 Presence of cardiac pacemaker; E78.00 Pure hypercholesterolemia, unspecified; Z87.01 Personal history of pneumonia (recurrent); H54.7 Unspecified visual loss; H91.90 Unspecified hearing loss, unspecified ear; Z87.891 Personal history of nicotine dependence; Z88.1 Allergy status to other antibiotic agents; Z79.82 Long term (current) use of aspirin; Z79.52 Long term (current) use of systemic steroids; E87.6 Hypokalemia; E83.39 Other disorders of phosphorus metabolism; Z79.899 Other long term (current) drug therapy
CPT/HCPCS: 36415; 36430; 36600; 70450; 70450-26; 71045; 71045-26; 74019; 74019-26; 74176; 80048; 80053; 80198; 80202; 82803; 82962; 83605; 83615; 83735; 83880; 84100; 85025; 85027; 85379; 85384; 85610; 85730; 86850; 86900; 86901; 86920; 86922; 87040; 87070; 87075; 87077; 87186; 87205; 88300; 88304; 88307; 94002; 94003; 94640; 94660; 94762; 94799; 97110-GP; 97162-GP; 97163-GP; 97530-GP; A9270-GY; C1781; C9113; J0131; J0171; J0330; J0694; J1100; J1170; J1200; J1450; J1610; J1642; J1644; J1885; J1940; J2020; J2175; J2185; J2250; J2270; J2310; J2370; J2405; J2543; J2704; J2710; J2765; J2795; J2920; J2930; J3010; J3370; J3410; J3475; J3480; J3490; J7030; J7040; J7042; J7050; J7060; J7120; J7620; P9016; P9034; P9047; S0028; S0073